=== PATIENT | female | born 1995 | race Caucasian/White ===

== ENCOUNTER 2024-06-21 11:01 | Outpatient (OUT) | payer OTHER, SELFPAY ==
--- NOTE | 2024-06-21 11:29 | ECG_ITS ---
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
--- NOTE | 2024-06-21 11:46 | XR_ITS ---
[address] [address] Patient Name: MARGARET ORTIZ MRN: [id number] date: 1995 Sex: F Assigned Patient Location: [facility] Current Patient Location: Accession/Order Number: [id number] Exam Date: 06/21/2024 11:40 Report Date: 06/23/2024 08:47 At the request of: BETY THAKKAR Procedure: XR chest 2V EXAMINATION: XR chest 2V HISTORY: Preop exam COMPARISON: No relevant comparison available. TECHNIQUE: PA and lateral FINDINGS: LUNGS: No significant pulmonary parenchymal abnormalities. VASCULATURE: No increased pulmonary vasculature. PLEURA: No pneumothorax, effusion, or pleural thickening. CARDIAC: No cardiomegaly or cardiac silhouette abnormality. MEDIASTINUM: No visible mass or adenopathy. BONES: No fracture or visible bone lesion. OTHER: Negative. XR/XR chest 2V IMPRESSION: No acute cardiopulmonary process Electronically authenticated by: GERARDO HIDALGO Date: 06/23/2024 08:47
== END 2024-06-21 11:02 | disposition home or self-care (01) ==
PROVIDERS: Visit Provider Obstetrics & Gynecology
DX: Z01.810 Encounter for preprocedural cardiovascular examination (principal); E28.2 Polycystic ovarian syndrome; N94.10 Unspecified dyspareunia; N93.9 Abnormal uterine and vaginal bleeding, unspecified; R10.2 Pelvic and perineal pain; E34.9 Endocrine disorder, unspecified
CPT/HCPCS: 71046; 93005

== ENCOUNTER 2024-06-22 07:17 | Outpatient (RCR) | payer OTHER, SELFPAY ==
--- OUTSIDE RECORDS SUMMARY | 2024-06-22 07:21 | XMS_ITS | CCD ---
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 Name Role Phone Andrea Luciano Primary Care Provi zoltan ANDREA LUCIANO Attending Un available ANDREA LUCIANO Primary Care Un available Joi Lewis Primary Care Provider UnavailANDREA Li Primary Care Un available VERONICA STEPHEN Attending Unavailable ANDREA LUCIANO Primary Care Un available SU WILLIAMSON Attending Unavailable ANDREA LUCIANO Primary Care Un available ARIELLE GUERRERO Attending Unavailable Joi Lewis Primary Care Provider JOI LEWIS Primary Care Unavailable JOI LEWIS Primary Care Unavailable PARUL GRAVES Referring Unavailable JOI LEWIS Primary Care Unavailable PARUL GRAVES Referring Unavailable Joi Lewis MD Primary Care Provider JUNG SERRATO Attending Unavailable JUNG SERRATO Attending Unavailable JOI LEWIS Primary Care Unavailable ALEXYS FAROOQ Referring Unavailable JOI LEWIS Primary Care Unavailable JUNG SERRATO Referring Unavailable JOI LEWIS Primary Care Unavailable PARUL GRAVES Referring Unavailable JOI LEWIS Primary Care Unavailable JUNG SERRATO Referring Unavailable JOI LEWIS Primary Care Unavailable JUNG SERRATO Referring Unavailable JOI LEWIS Primary Care Unavailable JOI LEWIS Primary Care Unavailable LILLIAN LEIJA Attending Unavailable Allergies Allergy Classification Reported Allergen(s) Allergy Type Date of Onset Reaction(s) Facility NSAIDs (2 sources) Ibuprofen; Translations: [IBUPROFEN] Drug Allergy 09-16-2015 [facility] (14 sources) Ibuprofen Drug Allergy 09-16-2015 [facility] Medications Current Medications Medication Drug Class(es) Dates Sig (Normalized) Sig (Original) acetaminophen 500 mg oral tablet (8 sources) take 1 tablet by mouth every six hours as needed acetaminophen (TYLENOL) 500 MG tablet Take 500 mg by mouth every 6 (six) hours as needed for pain . 0 Active 200 actuat albuterol 0.09 mg/actuat metered dose inhaler (2 sources) beta2-Adrenergic Agonist Start: 07-06-2019 End: 07-05-2020 take 2 puff(s) by inhalation every six hours as needed for wheezing albuterol 90 mcg/actuation inhaler Indications: Bronchitis Inhale 2 (two) puffs every 6 (six) hours as needed for wheezing . 1 Inhaler 0 07/06/2019 07/05/2020 Active benzonatate 200 mg oral capsule (1 source) Non-narcotic Antitussive Start: 07-06-2019 End: 07-13-2019 take 1 capsule by mouth three times daily as needed for cough benzonatate (TESSALON) 200 MG capsule Indications: Bronchitis Take 1 (one) capsule (200 mg total) by mouth 3 (three) times a day as needed for cough . 20 capsule 0 07/06/2019 07/13/2019 Active cetirizine hydrochloride 10 mg oral tablet (3 sources) Histamine-1 Receptor Antagonist Start: 03-23-2020 End: 04-22-2020 take 1 tablet by mouth once daily cetirizine (ZYRTEC) 10 MG tablet Indications: Post-nasal drip Take 1 (one) tablet (10 mg total) by mouth daily . 30 tablet 0 03/23/2020 Active diphenhydrAMINE hydrochloride 50 mg oral capsule (8 sources) Histamine-1 Receptor Antagonist take 1 capsule by mouth every six hours as needed diphenhydrAMINE (BENADRYL) 50 MG capsule Take 50 mg by mouth every 6 (six) hours as needed for itching . 0 Active DM/PE/acetaminophen/ doxylamine (VICKS DAYQUIL-NYQUIL ORAL) (8 sources) DM/PE/acetaminop hen/ doxylamine (VICKS DAYQUIL-NYQUIL ORAL) Take by mouth . 0 Active doxycycline hyclate 100 mg oral capsule (2 sources) Tetracycline-class Drug Start: 12-01-2019 End: 12-11-2019 take 1 capsule by mouth twice daily doxycycline hyclate (VIBRAMYCIN) 100 MG capsule Take 1 (one) capsule (100 mg total) by mouth 2 (two) times a day for 10 days . 20 capsule 0 12/01/2019 12/11/2019 Active levonorgestrel 0.577397 mg/hr intrauterine system (9 sources) Progestin, Progestin-containi ng Intrauterine Device levonorgestrel (MIRENA) 20 mcg/24 hr (5 years) IUD Indications: placed 2017 1 each by Intrauterine route . 0 Active mupirocin 20 mg/ml topical cream (8 sources) RNA Synthetase Inhibitor Antibacterial Start: 09-30-2020 End: 10-05-2020 take 30 g by mouth three times daily mupirocin (BACTROBAN) 2 % cream Apply topically 3 (three) times a day Apply to corner of mouth for 5 days . 30 g 0 09/30/2020 10/05/2020 Active Start: 07-06-2019 End: 09-30-2020 mupirocin (BACTROBAN) 2 % oi ntment Indications: Dermatitis Apply topically 3 (three) times a day . 22 g 0 07/06/2019 09/30/2020 Discontinued ondansetron 4 mg disintegrating oral tablet (2 sources) Serotonin-3 Receptor Antagonist ondansetron (ZOFRAN-ODT) 4 MG disintegrating tablet Active oseltamivir 75 mg oral capsule (1 source) Neuraminidase Inhibitor Start: End: take 1 capsule by mouth twice daily oseltamivir (Tamiflu) 75 MG capsule Indications: Influenza B Take 1 (one) capsule (75 mg total) by mouth 2 (two) times a day for 5 days . 10 capsule 0 10/18/2019 10/23/2019 Active oxymetazoline hydrochloride 0.5 mg/ml nasal spray (4 sources) Start: oxymetazoline (12 HOUR NASAL SPRAY) 0.05 % nasal spray Use daily as directed for 3 days 1 Bottle 08/11/2020 Active silver sulfADIAZINE 10 mg/ml topical cream (7 sources) Sulfonamide Antibacterial Start: End: 020 silver sulfADIAZINE (SILVADENE) 1 % cream Indications: Sunburn Apply thin film to left posterior shoulder region and L side of neck daily x 7 days . 50 g 1 06/21/2019 06/20/2020 Active Completed/Discontinued Medications Medication Drug Class(es) Dates Sig (Normalized) Sig (Original) albuterol 90 mcg/actuation inhaler (6 sources) Start: 12-01-2019 End: 09-30-2020 take 2 puff(s) by inhalation four times daily as needed for cough albuterol 90 mcg/actuation inhaler 2 puffs qid prn cough/wheeze . 1 Inhaler 0 12/01/2019 09/30/2020 Discontinued Start: 12-01-2019 take 2 puff(s) by in halation four times daily as needed for cough albuterol 90 mcg/actuation inhaler 2 puffs qid prn cough/wheeze . 1 Inhaler 0 12/01/2019 Active Start: 07-06-2019 End: 12-01-2019 take 2 puff(s) by inhalation every six hours as needed for wheezing albuterol 90 mcg/actuation inhaler Indications: Bronchitis Inhale 2 (two) puffs every 6 (six) hours as needed for wheezing . 1 Inhaler 0 07/06/2019 12/01/2019 Discontinued dextromethorphan hydrobromide 1.5 mg/ml / pyrilamine maleate 1.5 mg/ml oral solution (6 sources) Uncompetitive X-dabica-Z-aspartate Receptor Antagonist, Sigma-1 Agonist Start: 10-18-2019 End: 09-30-2020 take 10 mL by mouth four times daily as needed for cough pyrilamine-dextromethorphan ([place] DM) 7.5-7.5 mg/5 mL Liqd Indications: Influenza B Take 10 mL by mouth 4 (four) times a day as needed (cough) . 200 mL 0 10/18/2019 09/30/2020 Discontinued fluconazole 100 mg oral tablet (2 sources) Azole Antifungal Start: 01-19-2023 End: 01-19-2023 fluconazole (DIFLUCAN) tablet 200 mg Start: 01-19-2023 End: 01-22-2023 take 1 tablet by mouth once daily fluconazole (DIFLUCAN) 150 MG tablet Take 1 tablet by mouth daily for 3 days 3 tablet 0 01/19/2023 01/22/2023 Active ipratropium bromide 0.021 mg/actuat metered dose nasal spray (6 sources) Anticholinergic Start: 10-18-2019 End: 10-17-2020 ipratropium (ATROVENT) 0.03 % nasal spray Indications: Influenza B Instill 2 (two) sprays into each nostril every 12 (twelve) hours . 30 mL 0 10/18/2019 09/30/2020 Discontinued methylPREDNISolone (9 sources) Corticosteroid Start: 03-23-2020 End: 09-30-2020 methylPREDNISolone (MEDROL DOSEPACK) 4 mg tablet Indications: Post-nasal drip Take as directed. . 21 tablet 0 03/23/2020 09/30/2020 Discontinued Start: 03-23-2020 methylPREDNISo lone (MEDROL DOSEPACK) 4 mg tablet Indications: Post-nasal drip Take as directed. . 21 tablet 0 03/23/2020 Active Start: 06-21-2019 End: 03-23-2020 methylPREDNISolone (MEDROL D OSEPACK) 4 mg tablet Indications: Sunburn follow package directions . 21 tablet 0 06/21/2019 03/23/2020 Discontinued Start: 06-21-2019 methylPREDNISo lone (MEDROL DOSEPACK) 4 mg tablet Indications: Sunburn follow package directions . 21 tablet 0 06/21/2019 Active metroNIDAZOLE 250 mg oral tablet (2 sources) Nitroimidazole Antimicrobial Start: 01-19-2023 End: 01-19-2023 metroNIDAZOLE (FLAGYL) tablet 500 mg Start: 01-19-2023 End: 01-29-2023 take 1 tablet by mouth three times daily metroNIDAZOLE (FLAGYL) 500 MG tablet Take 1 tablet by mouth 3 times daily for 10 days 30 tablet 0 01/19/2023 01/29/2023 Active topiramate 25 mg oral tablet (7 sources) Start: 10-02-2018 End: 09-30-2020 take 1 tablet by mouth once daily topiramate (TOPAMAX) 25 MG tablet Indications: Migraine with aura and without status migrainosus, not intractable Take 1 (one) tablet (25 mg total) by mouth nightly . 30 tablet 0 10/02/2018 09/30/2020 Discontinued Problems Active Problems Problem Classification Problem Date Documented Date Episodic/Chronic Cardiac and circulatory congenital anomalies (14 sources) Bicuspid aortic valve; Translations: [Congenital insufficiency of aortic valve] Onset: 07-08-2012 10-02-2018 Chronic Chronic obstructive pulmonary disease and bronchiectasis (2 sources) Bronchitis; Translations: [Bronchitis] Episodic Coagulation and hemorrhagic disorders (14 sources) von Willebrand disorder; Translations: [Von Willebrand disease] Onset: 10-02-2018 10-02-2018 Chronic Essential hypertension (5 sources) Hypertensive disorder; Translations: [Essential (primary) hypertension] Onset: 05-26-2013 05-26-2013 Chronic Headache; including migraine (9 sources) Migraine; Translations: [Migraine] Onset: 10-02-2018 10-26-2018 Chronic Heart valve disorders (10 sources) Aortic valve stenosis; Translations: [Aortic valve regurgitation] Onset: 07-08-2012 07-08-2012 Chronic Influenza (1 source) Influenza due to Influenza virus, type B; Translations: [Influenza B] Episodic Menstrual disorders (5 sources) Menorrhagia; Translations: [Excessive and frequent menstruation with regular cycle] 07-06-2012 Chronic Other endocrine disorders (2 sources) Polycystic ovarian syndrome; Translations: [Polycystic ovarian syndrome] Onset: 05-27-2024 Chronic Other endocrine disorders (2 sources) Endocrine disorder, unspecified; Translations: [Endocrine disorder, unspecified] Onset: 05-27-2024 Episodic Other female genital disorders (1 source) Pain in female genitalia on intercourse; Translations: [Unspecified dyspareunia] 05-28-2024 Chronic Other female genital disorders (1 source) Abnormal uterine bleeding; Translations: [Abnormal uterine and vaginal bleeding, unspecified] 05-28-2024 Chronic Other female genital disorders (1 source) Unspecified dyspareunia; Translations: [Unspecified dyspareunia] Onset: 05-28-2024 Chronic Other female genital disorders (3 sources) Abnormal uterine and vaginal bleeding, unspecified; Translations: [Abnormal uterine and vaginal bleeding, unspecified] Onset: 05-27-2024 Chronic Other female genital disorders (1 source) Pruritus of vagina; Translations: [Other specified noninflammatory disorders of vagina] Episodic Other inflammatory condition of skin (1 source) Solar erythema; Translations: [Sunburn] Episodic Other lower respiratory disease (1 source) Lower respiratory tract infection; Translations: [Lower respiratory tract infection] Episodic Other lower respiratory disease (1 source) Cough; Translations: [Cough] Episodic Other nutritional; endocrine; and metabolic disorders (9 sources) Obesity; Translations: [Obesity] Onset: 10-02-2018 10-02-2018 Chronic Other screening for suspected conditions (not mental disorders or infectious disease) (3 sources) Other specified abnormal findings of blood chemistry; Translations: [Other specified abnormal findings of blood chemistry] Onset: 06-09-2024 Episodic Other skin disorders (1 source) Inflammatory dermatosis; Translations: [Dermatitis] Episodic Other upper respiratory disease (1 source) Rhinitis; Translations: [Acute rhinitis] Chronic Other upper respiratory infections (1 source) Posterior rhinorrhea; Translations: [Post-nasal drip] Episodic Unclassified (2 sources) Test; Translations: [ Test] Onset: 02-15-2024 Past or Other Problems Problem Classification Problem Date Documented Date Episodic/Chronic Abdominal pain (1 source) Pelvic and perineal pain; Translations: [Pelvic and perineal pain] Onset: 08-18-2023 Episodic Immunizations and screening for infectious disease (1 source) Encounter for screening for infections with a predominantly sexual mode of transmission; Translations: [Encounter for screening for infections with a predominantly sexual mode of transmission] Onset: 2023 Episodic Ovarian cyst (3 sources) Other ovarian cyst, right side; Translations: [Unspecified ovarian cyst, left side] Onset: 2023 Episodic Skin and subcutaneous tissue infections (1 source) Impetigo; Translations: [Impetigo] Episodic Syncope (1 source) Syncope and collapse; Translations: [Syncope and collapse] Onset: 06-23-2023 Episodic Results Test Name Value Interpretation Reference Range Facility MRI BRAIN W WO CONTRASTon MRI BRAIN W WO CONTRAST EXAMINATION: MRI OF THE BRAIN WITHOUT AND WITH CONTRAST 06/09/2024 12:35 pm TECHNIQUE: Multiplanar multisequence MRI of the head/brain was performed without and with the administration of intravenous contrast. COMPARISON: None. HISTORY: ORDERING SYSTEM PROVIDED HISTORY: Other specified abnormal findings of blood manager chemistry PROVIDED HISTORY: STAT Creatinine as needed:->No FINDINGS: INTRACRANIAL STRUCTURES/VENTRICLES: There is no acute infarct. No mass effect or midline shift. No evidence of an acute intracranial hemorrhage. The ventricles and sulci are normal in size and configuration. The sellar/suprasellar regions appear unremarkable. Pituitary gland measures 1.4 x 0.5 x 0.5 cm. No focal lesions are seen. Pituitary stalk is normal in thickness. The normal signal voids within the major intracranial vessels appear maintained. No abnormal focus of enhancement is seen within the brain. ORBITS: The visualized portion of the orbits demonstrate no acute abnormality. SINUSES: The visualized paranasal sinuses and mastoid air cells demonstrate no acute abnormality. BONES/SOFT TISSUES: The bone marrow signal intensity appears normal. The soft tissues demonstrate no acute abnormality. IMPRESSION: 1. No acute intracranial abnormality. 2. Normal pituitary gland. Interpreted by: Tristen Valdes MD Signed by: Tristen Valdes MD 06/10/24 Final result Normal [facility] DHEAon 06-01-2024 DHEA 8.631 ng/mL High 1.330-7.780 [facility] Comment on above: Result Comment: (NOT E) INTERPRETIVE INFORMATION: Dehydroepiandrosterone, Females 18 years and older: Postmenopausal: 0.60-5.73 ng/mL REFERENCE INTERVAL: Dehydroepiandrosterone by TMS Access complete set of age- and/or gender-specific reference intervals for this test in the [facility] Test Directory ([employer]). This test was developed and its performance characteristics determined by [facility]. It has not been cleared or approved by the [place] Food and Drug Administration. This test was performed in a CLIA certified laboratory and is intended for clinical purposes. Performed By: [facility] [address] [place] [address] Drivers License Examiner: John Maradiaga MD, PhD CLIA Number: [id number] Performed By: #### F SH, DHES, FT4, LH, GLYHGB, PROL ####[id number] [place] [address] Lab Director: Eliecer Barreto MD#### CDP, BHCG, TSH ####[facility] [place] [address] Lab Director: Patricio Kelley MD#### ADHEA ####[facility] [place] [id number] Lab Director: Aguilar Ballard MD US PELVIS COMPLETEon 024 US PELVIS COMPLETE EXAMINATION: PELVIC ULTRASOUND 05/28/2024 9:17 pm TECHNIQUE: Transabdominal pelvic ultrasound using B-mode/conner scaled imaging and color flow Doppler was obtained. COMPARISON: None HISTORY: ORDERING SYSTEM PROVIDED HISTORY: Dyspareunia, female FINDINGS: Uterus: 7.9 cm x 4.3 cm x 3.1 cm Endometrial stripe: 0.7 cm Right ovary: 2.6 cm x 2.2 cm x 1.8 cm Left ovary: 2.2 cm x 2.4 cm x 3.0 cm UTERUS: Anteverted with appropriate size. Heterogeneous myometrium with indistinct junctional margins and possible patchy fan-shaped posterior acoustic shadowing. No discrete myometrial lesion. Closed cervix. ENDOMETRIAL STRIPE: Normal size and appearance. RIGHT OVARY: Normal size. Normal degree of vascularity. LEFT OVARY: Normal size. Normal degree of vascularity. FREE FLUID: None visualized. IMPRESSION: 1. Myometrial heterogeneity that could be seen with adenomyosis, incompletely evaluated due to lack of transvaginal imaging. 2. Normal transabdominal sonographic appearance of the ovaries. Interpreted by: Adonay Frank MD Signed by: Adonay Frank MD 05/29/24 Final result Normal [facility] US Pelvison 05-29-2024 1. Myometrial heterogeneity that could be seen with adenomyosis, incompletely evaluated due to lack of transvaginal imaging. 2. Normal transabdominal sonographic appearance of the ovaries. [facility] RIS CONSOLIDATED EXAMINATION: PELVIC ULTRASOUND 05/28/2024 9:17 pm TECHNIQUE: Transabdominal pelvic ultrasound using B-mode/conner scaled imaging and color flow Doppler was obtained. COMPARISON: None HISTORY: ORDERING SYSTEM PROVIDED HISTORY: Dyspareunia, female FINDINGS: Uterus: 7.9 cm x 4.3 cm x 3.1 cm Endometrial stripe: 0.7 cm Right ovary: 2.6 cm x 2.2 cm x 1.8 cm Left ovary: 2.2 cm x 2.4 cm x 3.0 cm UTERUS: Anteverted with appropriate size. Heterogeneous myometrium with indistinct junctional margins and possible patchy fan-shaped posterior acoustic shadowing. No discrete myometrial lesion. Closed cervix. ENDOMETRIAL STRIPE: Normal size and appearance. RIGHT OVARY: Normal size. Normal degree of vascularity. LEFT OVARY: Normal size. Normal degree of vascularity. FREE FLUID: None visualized. [facility] Adonay Carreno MD - 05/29/2024 EXAMINATION: PELVIC ULTRASOUND 05/28/2024 9:17 pm TECHNIQUE: Transabdominal pelvic ultrasound using B-mode/conner scaled imaging and color flow Doppler was obtained. COMPARISON: None HISTORY: ORDERING SYSTEM PROVIDED HISTORY: Dyspareunia, female FINDINGS: Uterus: 7.9 cm x 4.3 cm x 3.1 cm Endometrial stripe: 0.7 cm Right ovary: 2.6 cm x 2.2 cm x 1.8 cm Left ovary: 2.2 cm x 2.4 cm x 3.0 cm UTERUS: Anteverted with appropriate size. Heterogeneous myometrium with indistinct junctional margins and possible patchy fan-shaped posterior acoustic shadowing. No discrete myometrial lesion. Closed cervix. ENDOMETRIAL STRIPE: Normal size and appearance. RIGHT OVARY: Normal size. Normal degree of vascularity. LEFT OVARY: Normal size. Normal degree of vascularity. FREE FLUID: None visualized. IMPRESSION: 1. Myometrial heterogeneity that could be seen with adenomyosis, incompletely evaluated due to lack of transvaginal imaging. 2. Normal transabdominal sonographic appearance of the ovaries. [facility] US PelvisOrdered By: Adonay Frank on 05-29-2024 [facility] Work Phone: US Pelvison 05-28-2024 Radiology Study observation (narrative) [facility] CBC with Auto Differentialon 05-27-2024 Basophils (Bld) [#/Vol] 0.04 10*3/uL [facility] Basophils/100 WBC (Bld) 0 % 0 - 2 % [facility] Eosinophils (Bld) [#/Vol] 0.30 10*3/uL [facility] Eosinophils/100 WBC (Bld) 3 % 1 - 4 % [facility] Erythrocyte distribution width (RBC) [Ratio] 12.7 % 11.8 - 14.4 % [facility] Hematocrit (Bld) [Volume fraction] 42.2 % 36.3 - 47.1 % [facility] Hemoglobin (Bld) [Mass/Vol] 14.5 g/dL 11.9 - 15.1 g/dL [facility] Immature granulocytes (Bld) [#/Vol] 0.04 10*3/uL [facility] Immature granulocytes/100 WBC (Bld) 0 % 0 [facility] Interpretation and review of laboratory results Abnormal [facility] Lymphocytes/100 WBC (Bld) 23 % Low 24 - 43 % [facility] Lymphocytes/100 WBC (Bld) 2.20 % [facility] MCH (RBC) [Entitic mass] 27.6 pg 25.2 - 33.5 pg [facility] MCHC (RBC) [Mass/Vol] 34.4 g/dL 28.4 - 34.8 g/dL [facility] MCV (RBC) [Entitic vol] 80.4 fL Low 82.6 - 102.9 fL [facility] Monocytes/100 WBC (Bld) 6 % 3 - 12 % [facility] Monocytes/100 WBC (Bld) 0.54 % [facility] Neutrophils/100 WBC (Bld) 68 % High 36 - 65 % [facility] Nucleated RBC/100 WBC (Bld) [Ratio] 0.0 % 0.0 per 100 WBC [facility] Platelet mean volume (Bld) [Entitic vol] 11.5 fL 8.1 - 13.5 fL [facility] Platelets (Bld) [#/Vol] 246 10*3/uL [facility] RBC (Bld) [#/Vol] 5.25 10*6/uL High 3.95 - 5.1 1 m/uL [facility] Segmented neutrophils/100 WBC (Bld) 6.39 % [facility] WBC other (Bld) [#/Vol] 9.5 [facility] CBC with Diffon 05-27-2024 Abs. Basophil 0.04 k/uL Normal 0.00-0.20 [facility] Comment on above: Performed By: #### S WC #### [facility] [employer] [address] [place] [id number] Manager Diversity: Eliecer Barreto MD Abs.Imm.Granulocyt e 0.04 k/uL Normal 0.00-0.30 [facility] Comment on above: Performed By: #### S WCGP #### [address] [address] Manager Diversity: Eliecer Barreto MD Abs.Neutrophil (Seg) 6.39 k/uL Normal 1.50-8.10 [facility] Comment on above: Performed By: #### S WCGP #### [address] [address] Manager Diversity: Eliecer Barreto MD Basophils/100 WBC (Bld) 0 % Normal 0-2 [facility] Comment on above: Performed By: #### S WCGP #### [place] [address] Manager Diversity: Eliecer Barreto MD Eosinophils (Bld) [#/Vol] 0.30 10*3/uL Normal 0.00-0.44 [facility] Comment on above: Performed By: #### S WCGP #### [address] [address] Manager Diversity: Eliecer Barreto MD Eosinophils/100 WBC (Bld) 3 % Normal 1-4 [facility] Comment on above: Performed By: #### S WCGP #### [address] [address] Manager Diversity: Eliecer Barreto MD Erythrocyte distribution width (RBC) [Ratio] 12.7 % Normal 11.8-14.4 [facility] Comment on above: Performed By: #### S WCGP #### [place] [address] Manager Diversity: Eliecer Barreto MD Hematocrit (Bld) [Volume fraction] 42.2 % Normal 36.3-47.1 [facility] Comment on above: Performed By: #### S WCGP #### [address] [address] Manager Diversity: Eliecer Barreto MD Hemoglobin (Bld) [Mass/Vol] 14.5 g/dL Normal 11.9-15.1 [facility] Comment on above: Performed By: #### S WCGP #### [address] [address] Manager Diversity: Eliecer Barreto MD Immature granulocytes/100 WBC (Bld) 0 % Normal 0 [facility] Comment on above: Performed By: #### S WCGP #### [address] [address] Manager Diversity: Eliecer Barreto MD Lymphocytes (Bld) [#/Vol] 2.20 10*3/uL Normal 1.10-3.70 [facility] Comment on above: Performed By: #### S WCGP #### [address] [address] Manager Diversity: Eliecer Barreto MD Lymphocytes/100 WBC (Bld) 23 % Low 24-43 [facility] Comment on above: Performed By: #### S WCGP #### [address] [address] Manager Diversity: Eliecer Barreto MD MCH (RBC) [Entitic mass] 27.6 pg Normal 25.2-33.5 [facility] Comment on above: Performed By: #### S WCGP #### [address] [address] Manager Diversity: Eliecer Barreto MD MCHC (RBC) [Mass/Vol] 34.4 g/dL Normal 28.4-34.8 [facility] Comment on above: Performed By: #### S WCGP #### [address] [address] Manager Diversity: Eliecer Barreto MD MCV (RBC) [Entitic vol] 80.4 fL Low 82.6-102.9 [facility] Comment on above: Performed By: #### S WCGP #### [address] [address] Manager Diversity: Eliecer Barreto MD Monocytes (Bld) [#/Vol] 0.54 10*3/uL Normal 0.10-1.20 [facility] Comment on above: Performed By: #### S WCGP #### [address] [address] Manager Diversity: Eliecer Barreto MD Monocytes/100 WBC (Bld) 6 % Normal 3-12 [facility] Comment on above: Performed By: #### S WCGP #### [address] [address] Manager Diversity: Eliecer Barreto MD Neutrophil (Seg) 68 % High 36-65 [facility] Comment on above: Performed By: #### S WCGP #### [address] [address] Manager Diversity: Eliecer Barreto MD NRBC Automated 0.0 per 100 WBC Normal 0.0 [facility] Comment on above: Performed By: #### S WCGP #### [address] [address] Manager Diversity: Eliecer Barreto MD Platelet mean volume (Bld) [Entitic vol] 11.5 fL Normal 8.1-13.5 [facility] Comment on above: Performed By: #### S WCGP #### [address] [address] Manager Diversity: Eliecer Barreto MD Platelets (Bld) [#/Vol] 246 10*3/uL Normal 138-453 [facility] Comment on above: Performed By: #### S WCGP #### [address] [address] Manager Diversity: Eliecer Barreto MD RBC (Bld) [#/Vol] 5.25 10*6/uL High 3.95-5.11 [facility] Comment on above: Performed By: #### S WCGP #### [facility] [address] [place] [address] Manager Diversity: Eliecer Barreto MD WBC (Bld) [#/Vol] 9.5 10*3/uL Normal 3.5-11.3 [facility] Comment on above: Performed By: #### S WCGP #### [facility] [address] [place] [address] Manager Diversity: Eliecer Barreto MD DHEA Sulfateon 05-27-2024 DHEA Sulfate 417.0 ug/dL High 98.8-340 [facility] Comment on above: Performed By: #### F SH, DHES, FT4, LH, GLYHGB, PROL ####[facility] [id number] [place] [address] Lab Director: Eliecer Barreto MD#### CDP, BHCG, TSH ####[facility] [place] [address] Lab Director: Patricio Kelley MD#### ADHEA ####[facility] [address] [place] [address] [id number] Lab Director: Aguilar Ballard MD DHEA-Sulfateon 05-27-2024 DHEA-S [Mass/Vol] 417.0 ug/dL High 98.8 - 340 ug/dL [facility] Interpretation and review of laboratory results Abnormal [facility] Follicle Stim. Hormon 2023 Follicle Stim. Horm 3.2 mIU/mL Normal [facility] Comment on above: Result Comment: Refe rence Range: Male: 1.5-12.4 Ovulating Female: Follicular Phase 3.5-12.5 Ovulation Phase 4.7-21.5 Luteal Phase 1.7-7.7 Postmenopausal Female: 25.8-134.8 Performed By: #### S WCGP #### [facility] [place] [address] Manager Diversity: Eliecer Barreto MD Follicle Stimulating Hormone on 05-27-2024 Follitropin Qn 3.2 m[IU]/mL mIU/mL [facility] [address] Comment on above: Reference Range: Male: 1.5-12.4 Ovulating Female: Follicular Phase 3.5-12.5 Ovulation Phase 4.7-21.5 Luteal Phase 1.7-7.7 Postmenopausal Female: 25.8-134.8 HCG, Quanton 05-27-2024 HCG, Quant <1.0 Normal <5 [facility] Comment on above: Result Comment: Non-preg premeno <=5 Postmeno <=8 Male <=3 If HCG results do not concur with clinical observations, additional testing to confirm results is recommended. Performed By: #### S WCGP #### [employer] [address] [place] [address] [id number] Manager Diversity: Eliecer Barreto MD HCG, Quantitative, on 05-27-2024 HCG.beta subunit Qn [facility] [employer] [address] Comment on above: Non-preg premeno <=5 Postmeno <=8 Male <=3 If HCG results do not concur with clinical observations, additional testing to confirm results is recommended. Hemoglobin A1Con 05-27-2024 Average glucose Estimated from glycated hemoglobin (Bld) [Mass/Vol] 97 mg/dL [facility] [employer] Comment on above: The ADA and AACC rec ommend providing the estimated average glucose result to permit better patient understanding of their HBA1c result. HbA1c (Bld) [Mass fraction] 5.0 % 4.0 - 6.0 % [facility] Glucose [Mass/Vol] 97 mg/dL Normal [facility] Comment on above: Result Comment: The ADA and AACC recommend providing the estimated average glucose result to permit better patient understanding of their HBA1c result. Performed By: #### S WCGP #### [facility] [place], [place] [id number] Manager Diversity: Eliecer Barreto MD HbA1c (Bld) [Mass fraction] 5.0 % Normal 4.0-6.0 [facility] Comment on above: Performed By: #### S WCGP #### [facility] [address] [place], [place] [id number] Manager Diversity: Eliecer Barreto MD Luteinizing Hormoneon 2023 Interpretation and review of laboratory results Abnormal [facility] Lutropin Qn 11.0 m[IU]/mL High [facility] Comment on above: Reference Range: Male: 1.7-8.6 Ovulating Female: Follicular Phase 2.4-12.6 Ovulation Phase 14.0-95.6 Luteal Phase 1.0-11.4 Postmenopausal Female: 7.7-58.5 Luteinizing Hormone 11.0 mIU/mL High 1.7-8.6 [facility] Comment on above: Result Comment: Refe rence Range: Male: 1.7-8.6 Ovulating Female: Follicular Phase 2.4-12.6 Ovulation Phase 14.0-95.6 Luteal Phase 1.0-11.4 Postmenopausal Female: 7.7-58.5 Performed By: #### F SH, DHES, FT4, LH, GLYHGB, PROL ####[facility] [address] [place], [place] [id number] Lab Director: Eliecer Barreto MD#### CDP, BHCG, TSH ####[facility] [place] [address] Lab Director: Patricio Kelley MD#### ADHEA ####[facility] [address] [place] [id number] Lab Director: Aguilar Ballard MD No Panel Informationon 05-27 [facility] Prolactinon 05-27-2024 Interpretation and review of laboratory results Abnormal [facility] Prolactin [Mass/Vol] 37.70 ng/mL High 4.79 - 23.3 ng/mL [facility] Comment on above: The presence of macr oprolactin may cause interference in female patients with various endocrinological diseases or during . [facility] Prolactin 37.70 ng/mL High 4.79-23.3 [facility] Comment on above: Result Comment: The presence of macroprolactin may cause interference in female patients with various endocrinological diseases or during . Performed By: #### S WCGP #### [facility] [address] [place] [address] Manager Diversity: Eliecer Barreto MD T4, Freeon 05-27-2024 Free T4 [Mass/Vol] 1.5 ng/dL 0.92 - 1. 68 ng/dL [facility] TSHon 05-27-2024 TSH Qn 1.42 m[IU]/L [facility] Thyroid Stim. Horm.on 2023 Thyroid Stim. Horm. 1.42 uIU/mL Normal 0.30-5.00 [facility] Comment on above: Performed By: #### S WCGP #### [facility] [address] [place] [address] Manager Diversity: Eliecer Barreto MD Thyroxine, Freeon 05-27-2024 Thyroxine, Free 1.5 ng/dL Normal 0.92-1.68 [facility] Comment on above: Performed By: #### F SH, DHES, FT4, LH, GLYHGB, PROL ####[facility] [place] [address] Lab Director: Eliecer Barreto MD#### CDP, BHCG, TSH ####[facility] [place] [address] Lab Director: Patricio Kelley MD#### ADHEA ####[facility] [address] [place] [id number] Lab Director: Aguilar Ballard MD NON OB TRANSVAGINALon NON OB TRANSVAGINAL Table formatting from the original result was not included. Misha Metz on 02/09/2024 11:23 AM EDT UTERUS:anteverted, homogeneous echo pattern ENDO:7mm in thickness RT. OVARY:seen, multiple follicles visualized LT. OVARY:seen, complex finding (probable resolving cyst) noah- 1.9cm x 1.6cm x 1.4cm Interpreted by: Nickolas Swenson MD Signed by: Nickolas Swenson MD 02/09/24 Final result Normal [facility] Chlamydia/GC,DNA Ampon 11-11 Chlamydia Probe Negative Normal NEG [facility] Comment on above: Result Comment: CHLA MYDIA TRACHOMATIS DNA not detected by nucleic acid amplification. This test is intended for medical purposes only and is not valid for the evaluation of suspected sexual abuse or for other forensic purposes. In certain contexts, culture may be required to meet applicable laws and regulations for diagnosis of C. trachomatis and N. gonorrhoeae infections. Per 2014 CDC recommendations, this test does not include confirmation of positive results by an alternative nucleic acid target. Performed By: #### S WCGP #### [facility] [employer] [address] [place] [address] [phone] Manager Diversity: Eliecer Barreto MD Gonorrhea Probe Negative Normal [facility] Comment on above: Result Comment: NEIS SERIA GONORRHOEAE DNA not detected by nucleic acid amplification. This test is intended for medical purposes only and is not valid for the evaluation of suspected sexual abuse or for other forensic purposes. In certain contexts, culture may be required to meet applicable laws and regulations for diagnosis of C. trachomatis and N. gonorrhoeae infections. Per 2014 CDC recommendations, this test does not include confirmation of positive results by an alternative nucleic acid target. Performed By: #### S WCGP #### [facility] [employer] [facility] [place], [place] [phone] Manager Diversity: Eliecer Barreto MD T.pallidum Ab Screenon 11-11 T.pallidum Ab Screen Non-Reactive Normal NR [facility] Comment on above: Result Comment: T. pallidum antibodies are not detected. There is no serological evidence of infection with T. pallidum (early primary syphilis cannot be excluded). Retest in 2-4 weeks if syphilis is clinically suspect. Performed By: #### C EA, TREP, HIVCMB, AHCV, CA125 #### [employer] [address] [place] [address] Manager Diversity: Eliecer Barreto MD NON OB TRANSVAGINALon US NON OB TRANSVAGINAL Table formatting from the original result was not included. Rose Javier on 2023 3:19 PM EST UTERUS:anteverted, homogeneous echo pattern ENDO:6mm in thickness RT. OVARY:seen, complex cyst noah- 2.6cm x 2.0cm x 1.7cm LT. OVARY:seen, wnl - no cystic area seen in left adnexa on today's US Interpreted by: Nickolas Swenson MD Signed by: Nickolas Swenson MD 11/11/23 Final result Normal [facility] Vaginitis DNA Probeon 2023 Catarina Negative Normal NEG [facility] Comment on above: Result Comment: for Catarina sp. Method of testing is a DNA probe intended for detection and identification of Catarina species, Gardnerella vaginalis, and Trichomonas vaginalis nucleic acid in vaginal fluid specimens from patients with symptoms of vaginitis/vaginosis. Performed By: #### V AGP #### [facility] [address] [place] [address] Manager Diversity: Eliecer Barreto MD [facility] [address] [place] [address] [place] [address] Manager Diversity: Patricio Kelley MD Gardnerella Positive Abnormal NEG [facility] Comment on above: Result Comment: for Gardnerella vaginalis Performed By: #### V AGP #### [facility] [employer] [address] [place] [address] Manager Diversity: Eliecer Barreto MD [facility] [address] [place] [address] Manager Diversity: Patricio Kelley MD Trichomonas Negative Normal NEG [facility] Comment on above: Result Comment: for Trichomonas Vaginalis Performed By: #### V AGP #### [address] [place] [address] Manager Diversity: Eliecer Barreto MD [facility] [address] [place] [address] Manager Diversity: Patricio Kelley MD CA 125on 2023 CA 125 10 U/mL Normal <38 [facility] Comment on above: Result Comment: The Eleanor ECLIA assay is used. Results obtained with different assay methods cannot be used interchangeably. Performed By: #### C EA, TREP, HIVCMB, AHCV, CA125 #### [address] [address] Manager Diversity: Eliecer Barreto MD Carcinoembry. Antig.on 11-10 Carcinoembry. Antig. 2.5 ng/mL Normal <3.9 [facility] Comment on above: Result Comment: The Eleanor ECLIA assay is used. Results obtained with different assay methods cannot be used interchangeably. Performed By: #### C EA, TREP, HIVCMB, AHCV, CA125 #### [address] [address] Manager Diversity: Eliecer Barreto MD HIV Ag/Abon 2023 HIV Ag/Ab Non-Reactive Normal NR [facility] Comment on above: Result Comment: No l aboratory evidence of HIV infection. If acute HIV infection is suspected, consider testing for HIV-1 RNA. Performed By: #### C EA, TREP, HIVCMB, AHCV, CA125 #### [address] [place], [place] [id number] Manager Diversity: Eliecer Barreto MD Hep C Abon 2023 Hep C Ab Non-Reactive Normal [facility] Comment on above: Result Comment: The hepatitis C procedure used in our laboratory is a Chemiluminescent test specific for three recombinant HCV antigens. A negative anti-HCV result indicates that the antibodies to hepatitis C virus are not present at this time. Individuals with reactive anti-HCV should be considered infected and infectious until proven otherwise. Confirmation of all equivocal or reactive results is recommended by ordering HCV RNA by PCR. Performed By: #### C EA, TREP, HIVCMB, AHCV, CA125 #### [facility] [employer] [address] [place] [address] Manager Diversity: Eliecer Barreto MD Vaginitis DNA Probeon 2023 Source .VAGINAL SWAB Normal [facility] Comment on above: Performed By: #### V AGP #### [facility] [address] [place] [address] Manager Diversity: Eliecer Barreto MD [facility] [address] [place] [address] [place] [address] Manager Diversity: Patricio Kelley MD US NON OB TRANSVAGINALon US NON OB TRANSVAGINAL UTERUS: Homogenous appearing anteverted uterus, WNL ENDO: measures 5 mm RT. OVARY: WNL LT. OVARY: there is a hyperechoic area lateral AND superior to ovary, suggestive of edema, or collection of blood, no blood flow into area, minimal blood flow noted in ovary No free fluid Interpreted by: Gisela Machado DO Signed by: Gisela Machado DO 08/20/23 Final result Normal [facility] Basic Metabolic Profon 06-23 Anion gap [Moles/Vol] 9 mmol/L Normal - [facility] Comment on above: Performed By: #### S WCGP #### [facility] [address] [place] [address] Manager Diversity: Eliecer Barreto MD BUN/CRE Ratio 16 Normal - [facility] Comment on above: Performed By: #### S WCGP #### [facility] [employer] [address] [place] [address] Manager Diversity: Eliecer Barreto MD Calcium [Mass/Vol] 9.1 mg/dL Normal 8.6-10.4 [facility] Comment on above: Performed By: #### S WCGP #### [facility] [place] [address] Manager Diversity: Eliecer Barreto MD Chloride [Moles/Vol] 105 mmol/L Normal 98-107 [facility] Comment on above: Performed By: #### S WCGP #### [facility] [address] [place] [address] Manager Diversity: Eliecer Barreto MD CO2 [Moles/Vol] 25 mmol/L Normal 20-31 [facility] Comment on above: Performed By: #### S WCGP #### [address] [address] Manager Diversity: Eliecer Barreto MD Creatinine [Mass/Vol] 0.9 mg/dL Normal 0.5-0.9 [facility] Comment on above: Performed By: #### S WCGP #### [address] [address] Manager Diversity: Eliecer Barreto MD GFR/1.73 sq M.predicted among non-blacks MDRD (S/P/Bld) [Vol rate/Area] mL/min/{1.73_m2} Normal >60 [facility] Comment on above: Result Comment: These results are not intended for use in patients <18 years of age. eGFR results are calculated without a race factor using the 2020 CKD-EPI equation. Careful clinical correlation is recommended, particularly when comparing to results calculated using previous equations. The CKD-EPI equation is less accurate in patients with extremes of muscle mass, extra-renal metabolism of creatine, excessive creatine ingestion, or following therapy that affects renal tubular secretion. Performed By: #### S WCGP #### [facility] [employer] [address] [place] [address] Manager Diversity: Eliecer Barreto MD Glucose [Mass/Vol] 108 mg/dL High 70-99 [facility] Comment on above: Performed By: #### S WCGP #### [facility] [address] [place] [address] Manager Diversity: Eliecer Barreto MD Potassium [Moles/Vol] 3.8 mmol/L Normal 3.7-5.3 [facility] Comment on above: Performed By: #### S WCGP #### [address] [address] Manager Diversity: Eliecer Barreto MD Sodium [Moles/Vol] 139 mmol/L Normal 135-144 [facility] Comment on above: Performed By: #### S WCGP #### [address] [address] Manager Diversity: Eliecer Barreto MD Urea nitrogen [Mass/Vol] 14 mg/dL Normal 6-20 [facility] Comment on above: Performed By: #### S WCGP #### [address] [address] Manager Diversity: Eliecer Barreto MD CBC with Diffon 06-23-2023 Abs. Basophil 0.06 k/uL Normal 0.00-0.20 [facility] Comment on above: Performed By: #### S WCGP #### [address] [address] Manager Diversity: Eliecer Barreto MD Abs.Imm.Granulocyt e <0.03 Normal 0.00-0.30 [facility] Comment on above: Performed By: #### S WCGP #### [address] [address] Manager Diversity: Eliecer Barreto MD Abs.Neutrophil (Seg) 5.92 k/uL Normal 1.50-8.10 [facility] Comment on above: Performed By: #### S WCGP #### [address] [address] Manager Diversity: Eliecer Barreto MD Basophils/100 WBC (Bld) 1 % Normal 0-2 [facility] Comment on above: Performed By: #### S WCGP #### [address] [address] Manager Diversity: Eliecer Barreto MD Eosinophils (Bld) [#/Vol] 0.54 10*3/uL High 0.00-0.44 [facility] Comment on above: Performed By: #### S WCGP #### [address] [address] Manager Diversity: Eliecer Barreto MD Eosinophils/100 WBC (Bld) 5 % High 1-4 [facility] Comment on above: Performed By: #### S WCGP #### [address] [address] Manager Diversity: Eliecer Barreto MD Erythrocyte distribution width (RBC) [Ratio] 12.6 % Normal 11.8-14.4 [facility] Comment on above: Performed By: #### S WCGP #### [address] [address] Manager Diversity: Eliecer Barreto MD Hematocrit (Bld) [Volume fraction] 40.5 % Normal 36.3-47.1 [facility] Comment on above: Performed By: #### S WCGP #### [address] [address] Manager Diversity: Eliecer Barreto MD Hemoglobin (Bld) [Mass/Vol] 13.5 g/dL Normal 11.9-15.1 [facility] Comment on above: Performed By: #### S WCGP #### [address] [address] Manager Diversity: Eliecer Barreto MD Immature granulocytes/100 WBC (Bld) 0 % Normal 0 [facility] Comment on above: Performed By: #### S WCGP #### [address] [address] Manager Diversity: Eliecer Barreto MD Lymphocytes (Bld) [#/Vol] 3.44 10*3/uL Normal 1.10-3.70 [facility] Comment on above: Performed By: #### S WCGP #### [address] [address] Manager Diversity: Eliecer Barreto MD Lymphocytes/100 WBC (Bld) 33 % Normal 24-43 [facility] Comment on above: Performed By: #### S WCGP #### [address] [address] Manager Diversity: Eliecer Barreto MD MCH (RBC) [Entitic mass] 27.6 pg Normal 25.2-33.5 [facility] Comment on above: Performed By: #### S WCGP #### [place] [address] Manager Diversity: Eliecer Barreto MD MCHC (RBC) [Mass/Vol] 33.3 g/dL Normal 28.4-34.8 [facility] Comment on above: Performed By: #### S WCGP #### [address] [address] Manager Diversity: Eliecer Barreto MD MCV (RBC) [Entitic vol] 82.7 fL Normal 82.6-102.9 [facility] Comment on above: Performed By: #### S WCGP #### [address] [address] Manager Diversity: Eliecer Barreto MD Monocytes (Bld) [#/Vol] 0.57 10*3/uL Normal 0.10-1.20 [facility] Comment on above: Performed By: #### S WCGP #### [address] [address] Manager Diversity: Eliecer Barreot MD Monocytes/100 WBC (Bld) 5 % Normal 3-12 [facility] Comment on above: Performed By: #### S WCGP #### [place] [address] Manager Diversity: Eliecer Barreto MD Neutrophil (Seg) 56 % Normal 36-65 [facility] Comment on above: Performed By: #### S WCGP #### [address] [address] Manager Diversity: Eliecer Barreto MD NRBC Automated 0.0 per 100 WBC Normal 0.0 [facility] Comment on above: Performed By: #### S WCGP #### [address] [address] Manager Diversity: Eliecer Barreto MD Platelet mean volume (Bld) [Entitic vol] 11.5 fL Normal 8.1-13.5 [facility] Comment on above: Performed By: #### S WCGP #### [address] [address] Manager Diversity: Eliecer Barreto MD Platelets (Bld) [#/Vol] 248 10*3/uL Normal 138-453 [facility] Comment on above: Performed By: #### S WCGP #### [address] [address] Manager Diversity: Eliecer Barreto MD RBC (Bld) [#/Vol] 4.90 10*6/uL Normal 3.95-5.11 [facility] Comment on above: Performed By: #### S WCGP #### [address] [address] Manager Diversity: Eliecer Barreto MD WBC (Bld) [#/Vol] 10.6 10*3/uL Normal 3.5-11.3 [facility] Comment on above: Performed By: #### S WCGP #### [address] [address] Manager Diversity: Eliecer Barreto MD HCG Screen, Bloodon 06-23-20 23 HCG Screen, Blood Negative Normal NEG [facility] Comment on above: Result Comment: Spec imens with hCG levels near the threshold of the test (25 mIU/mL) may give a negative or indeterminate result. In such cases, another test should be performed with a new specimen in 48-72 hours. If early is suspected clinically in this setting, correlation with quantitative serum b-hCG level is suggested. [facility] has confirmed the use of plasma for this test. This has not been cleared or approved by the U.S. Food and Drug Administration. The FDA has determined that such clearance is not necessary. Performed By: #### S WCGP #### [facility] [address] [place], [place] [id number] Manager Diversity: Eliecer Barreto MD Magnesiumon 06-23-2023 Magnesium [Mass/Vol] 2.0 mg/dL Normal 1.6-2.6 [facility] Comment on above: Performed By: #### S WCGP #### [facility] [address] [place] [address] Manager Diversity: Eliecer Brareto MD Urinalysis w/ Microon 546 Bilirubin, SemiQt,Ur Negative Normal NEG [facility] Comment on above: Performed By: #### U AMIC #### [facility] [address] [place] [address] [place] [address] Manager Diversity: Patricio Kelley MD Blood, Urine Negative Normal NEG [facility] Comment on above: Performed By: #### U AMIC #### [facility] [address] [place] [address] [place] [address] Manager Diversity: Patricio Kelley MD Clarity (U) Clear Normal CLEAR [facility] Comment on above: Performed By: #### U AMIC #### [facility] [address] [place] [address] [place] [address] Manager Diversity: Patricio Kelley MD Color (U) Yellow Normal YEL [facility] Comment on above: Performed By: #### U AMIC #### [facility] [address] [place] [address] [place] [address] Manager Diversity: Patricio Kelley MD Epithelial cells LM Ql (Urine sed) 0 TO 2 Normal 0-25 [facility] Comment on above: Performed By: #### U AMIC #### [facility] [address] [place] [address] Manager Diversity: Patricio Kelley MD Glucose Ql (U) Negative Normal NEG [facility] in Hospital Comment on above: Performed By: #### U AMIC #### [facility] [address] [place] [address] Manager Diversity: Patricio Kelley MD Ketones Ql (U) Negative Normal NEG [facility] Comment on above: Performed By: #### U AMIC #### [facility] [address] [place] [address] Dr[place], [place] [phone] Manager Diversity: Patricio Kelley MD Leukocyte esterase Test strip Ql (U) Negative Normal NEG [facility] Comment on above: Performed By: #### U AMIC #### [facility] [address] [place] [address] [place] [address] Manager Diversity: Patricio Kelley MD Nitrite,Ur Negative Normal NEG [facility] Comment on above: Performed By: #### U AMIC #### [facility] [address] [place] [address] [place] [address] Manager Diversity: Patricio Kelley MD PH,Ur 6.0 Normal 5.0-9.0 [facility] Comment on above: Performed By: #### U AMIC #### [facility] [address] [place] [address] Manager Diversity: Patricio Kelley MD Protein Ql (U) Negative Normal NEG [facility] in Hospital Comment on above: Performed By: #### U AMIC #### [facility] [address] [place], [place] [id number] Manager Diversity: Patricio Kelley MD Spec. [place],Ur 1.020 Normal 1.010-1.020 [facility] Comment on above: Performed By: #### U AMIC #### [facility] [address] [place] [address] Manager Diversity: Patricio Kelley MD Urine RBC's None Normal 0-2 [facility] Comment on above: Performed By: #### U AMIC #### [facility] [address] [place] [id number] Manager Diversity: Patricio Kelley MD Urine WBC's None Normal 0-5 [facility] Comment on above: Performed By: #### U AMIC #### [facility] [address] [place] [address] Manager Diversity: Patricio Kelley MD Urobilinogen,Ur Normal Normal 0.0-1.0 [facility] Comment on above: Performed By: #### U AMIC #### [facility] [address] [place] [address] Manager Diversity: Patricio Kelley MD Microscopic Urinalysison Epithelial Cells UA 0 TO 2 [facility] RBC clumps Auto (Urine sed) [#/Area] GREATER THAN 100 [facility] WBC, UA None [facility] , urineon 3 Beta HCG ( test) Ql (U) Negative NEGATIVE [facility] Comment on above: Specimens with hCG l evels near the threshold of the test (25 mIU/mL) may give a negative or indeterminate result. In such cases, another test should be performed with a new specimen in 48-72 hours. If early is suspected clinically in this setting, correlation with quantitative serum b-hCG level is suggested. [employer] has confirmed the use of plasma for this test. This has not been cleared or approved by the U.S. Food and Drug Administration. The FDA has determined that such clearance is not necessary. [facility] Urinalysison 01-19-2023 Bilirubin Urine Negative NEGATIVE [facility] Color, UA Yellow Yellow [facility] Glucose Auto test strip (U) [Mass/Vol] Negative NEGATIVE [facility] Interpretation and review of laboratory results Abnormal [facility] Ketones (U) [Mass/Vol] Negative NEGATIVE [facility] Leukocyte esterase Auto test strip Ql (U) Negative NEGATIVE [facility] Nitrite Auto test strip Ql (U) Negative NEGATIVE [facility] Protein (U) [Mass/Vol] 6.0 mg/dL 5.0 - 9.0 [facility] Protein (U) [Mass/Vol] Negative NEGATIVE [facility] Specific [place], UA High 1.010 - 1.020 [facility] Turbidity UA Clear Clear [facility] Urine Hgb 3+ Abnormal NEGATIVE [facility] Urobilinogen, Urine Normal Normal [facility] Wet Prep, Genitalon 01-20-20 Interpretation and review of laboratory results Abnormal [facility] Microorganism or agent identified Nom (Unsp spec) NO CLUE CELLS SEEN [facility] Microorganism or agent identified Nom (Unsp spec) NO YEAST OBSERVED [facility] Microorganism or agent identified Nom (Unsp spec) TRICHOMONAS Abnormal [facility] Specimen Description .VAGINA [facility] Abdirahman 11-29-2021 KATHERINE Telephone (REMIGIO) ----- EDGAR ORTIZ ([id number]) 1995 F Date Time Provider Department 11/29/21 ALBINO KILGORE During your visit today, we recorded the following information about you: Albino Kilgore, BITA 11/29/2021 11:36 AM Signed Received call from pt who stating she has Von Willebrand's disease and Dr Pate told her she doesn't need to see him until she is ready to have children but she is going to [place] soon and they are requiring her to have the COVID vaccine so she needs to know if that is safe for her to received. BRM: Please advise. BITA Abreu MD 11/29/2021 12:31 PM Signed Definitely okay to receive the COVID vaccine. Thanks, BRM Albino Kilgore RN 11/29/2021 12:43 PM Signed Returned call to pt. No answer. Left message informing pt of Dr Pate's response and to return call if any further questions/concerns. Albino Kilgore RN Allergies As of Date: 11/29/2021 (No Known Allergies) Date Reviewed: 05/17/2014 Reviewed by: Jose Pate - Fully Assessed Reason for Visit: Medication Question [8298] Prescriptions as of 11/29/2021 - Desmopressin Acetate (STIMATE) 150 mcg/spray (0.1 mL) spry Use 1 [place] in the nose as needed. - Desmopressin Acetate (STIMATE) 150 mcg/spray spry Use 1 [place] in the nose as needed. - Desmopressin Acetate (STIMATE) 150 mcg/spray [place] Use 1 [place] in the nose once daily as needed. - lisinopril 2.5 mg tablet Take 2.5 mg by mouth once daily. - TOPIRAMATE (TOPAMAX ORAL) Take 100 mg by mouth. - lansoprazole (PREVACID) 30 mg capsule Take 1 capsule by mouth once daily. Problem List As Of Date 11/29/2021 Noted Resolved Von Willebrand disease [D68.0] Aortic stenosis [I35.0] 01/20/2013 Migraine headache [G43.909] 01/20/2013 GERD (gastroesophageal reflux disease) [K21.9] 01/20/2013 Encounter Status:Closed by ALBINO KILGORE on 11/29/[address] [facility] COVID-19, MOLECULARon 2020 SARS-CoV-2 (COVID-19) Ab IA Ql Not detected Normal Not Detected [facility] Comment on above: Result Comment: This test was performed under the FDA's Emergency Use Authorization (EUA). Testing was performed using the [place] ID NOW COVID-19 assay on the ID NOW platform. This test has not been approved for use in asymptomatic patients and its performance in this patient population has not been evaluated. Negative results do not rule out the presence of SARS-CoV-2/COVID-19. Fact sheets for the EUA can be found at the following links: For Healthcare Providers: https://www.MaxTraffic.gov/media/100462/download For Patients: https://www.fda.gov/media/667817/download , Urineon 0 Beta HCG ( test) Ql (U) Negative NEGATIVE [place], [place] Comment on above: Specimens with hCG l evels near the threshold of the test (25 mIU/mL) may give a negative or indeterminate result. In such cases, another test should be performed with a new specimen in 48-72 hours. If early is suspected clinically in this setting, correlation with quantitative serum b-hCG level is suggested. [employer] has confirmed the use of plasma for this test. This has not been cleared or approved by the U.S. Food and Drug Administration. The FDA has determined that such clearance is not necessary. Urinalysis with Microscopico n 05-16-2020 Amorphous, UA NOT REPORTED None [facility] Bacteria, UA NOT REPORTED None [place], [place] Bilirubin Urine Negative NEGATIVE [place], [place] Casts UA NOT REPORTED /LPF [place], [place] Color, UA YELLOW YELLOW [place] Crystals, UA NOT REPORTED None /HPF [facility], [place] Epithelial Cells UA 0 TO 2 [place] Glucose, Ur Negative NEGATIVE [place] Interpretation and review of laboratory results Abnormal [place] Ketones Ql (U) Negative NEGATIVE [facility] Leukocyte esterase Test strip Ql (U) Negative NEGATIVE [facility], [place] Mucus, UA NOT REPORTED None [place] Nitrite, Urine Negative NEGATIVE [facility], [place] Other Observations UA NOT REPORTED NOT REQ. [place] pH, UA 7.0 [place] Protein (U) [Mass/Vol] Negative NEGATIVE [place] RBC (U) [#/Vol] None [facility] Renal Epithelial, UA NOT REPORTED 0 /HPF [place] Specific [place], UA <1.005 [place], [place] Trichomonas, UA NOT REPORTED None [facility] [place] Turbidity UA CLEAR CLEAR [place] Urinalysis Comments NOT REPORTED [facility], [place] Urine Hgb Negative NEGATIVE [place] Urobilinogen, Urine Normal Normal [place] WBC, UA 0 TO 2 [place] Yeast, UA NOT REPORTED None [facility], [place] - [facility], [place] Otheron 12-01-2019 Evidence of mild bronchitis or atypical infection in the lingula. Workstation ID: [id number] [facility] EXAMINATION: XR CHES T AP/PA AND LAT 12/01/2019 2:48 pm HISTORY: ORDERING SYSTEM PROVIDED HISTORY: Persistent cough, recent flu, TECHNOLOGIST PROVIDED HISTORY: Illness/Other Reason for exam: cough Cancer History: no Surgery, RadiationHistory: no Encounter Type: Initial Additional signs and symptoms: cough ORDERING SYSTEM PROVIDED DIAGNOSIS CODES: J40 Bronchitis COMPARISON: None FINDINGS: Normal heart and mediastinum. Question of slight bronchial thickening or interstitial opacity in the lingula. No consolidation. No pleural effusion or pneumothorax. [facility] Interface, Rad In Fu ji Speechq - 12/01/2019 3:03 PM EST EXAMINATION: XR CHEST AP/PA AND LAT 12/01/2019 2:48 pm HISTORY: ORDERING SYSTEM PROVIDED HISTORY: Persistent cough, recent flu, TECHNOLOGIST PROVIDED HISTORY: Illness/Other Reason for exam: cough Cancer History: no Surgery, RadiationHistory: no Encounter Type: Initial Additional signs and symptoms: cough ORDERING SYSTEM PROVIDED DIAGNOSIS CODES: J40 Bronchitis COMPARISON: None FINDINGS: Normal heart and mediastinum. Question of slight bronchial thickening or interstitial opacity in the lingula. No consolidation. No pleural effusion or pneumothorax. IMPRESSION: Evidence of mild bronchitis or atypical infection in the lingula. Workstation ID: [id number] [facility] POC INFLUENZA A/B MOLECULARo n 10-18-2019 FLUAV Ag Ql (Nph) Negative Negative [facility] FLUBV Ag Ql (Nph) Positive Abnormal Negative [facility] Interpretation and review of laboratory results Abnormal [facility] Vital Signs Date Time Vital Sign Value Performing Clinician Edd lema 01-19-2023 21:23-0400 Body mass index (BMI) [Ratio] 33.84 kg/m2 Fior Villatoro DO Work Phone: [facility] [employer] 01-19-2023 21:23-0400 Body temperature 97 [degF] Fior Villatoro DO Work Phone[email or web address] 01-19-2023 21:23-0400 Body weight 83.92 kg Fior Villatoro DO Work Phone: [email or web address] 01-19-2023 21:23-0400 Diastolic blood pressure 95 mm[Hg] Fior Villatoro DO Work Phone: [facility] 01-19-2023 21:23-0400 Heart rate 87 /min Fior Villatoro DO Work Phone: [facility] [email or web address] 01-19-2023 21:23-0400 Respiratory rate 16 /min Fior Villatoro DO Work Phone: [facility] [id number] 01-19-2023 21:23-0400 SaO2% (BldA) [Mass fraction] 98 % Fior Villatoro DO Work Phone: [facility] [id number] 01-19-2023 21:23-0400 Systolic blood pressure 144 mm[Hg] Fior Villatoro DO Work Phone: [facility] 09-30-2020 12:52-0500 BP Diastolic 84 mm[Hg] [facility] 09-30-2020 12:52-0500 BP Systolic 131 mm[Hg] [facility] 09-30-2020 12:48-0500 BMI (Body Mass Index) 38.19 kg/m2 [facility] 09-30-2020 12:48-0500 Body weight 94.71 kg [facility] 09-30-2020 12:48-0500 Height 157.5 cm [facility] 09-30-2020 12:48-0500 Pulse (Heart Rate) 72 /min [facility] 09-30-2020 12:48-0500 Pulse Oximetry 98 % [facility] 09-30-2020 12:48-0500 Respiratory Rate 16 /min Veronica Stephen [facility] 08-11-2020 13:14-0400 Body Temperature 98.2 [degF] [facility] [place] 08-11-2020 13:14-0400 BP Diastolic 99 mm[Hg] Shannan Virgen [facility] , [place] 08-11-2020 13:14-0400 BP Systolic 132 mm[Hg] Shannan Solitario [facility] , [place] 08-11-2020 13:14-0400 Pulse (Heart Rate) 66 /min Shannan Solitario [facility], [place] 08-11-2020 13:14-0400 Pulse Oximetry 100 % Shannan Solitario [facility] , [place] 08-11-2020 13:14-0400 Respiratory Rate 16 /min Shannan Solitario [facility], [place] 03-23-2020 20:39-0400 BMI (Body Mass Index) 40.79 kg/m2 Arielle Gurerero [facility] 03-23-2020 20:39-0400 Body Temperature 98.01 [degF] Arielle Guerrero [facility] 03-23-2020 20:39-0400 Body weight 101.15 kg Arielle Guerrero [facility] 03-23-2020 20:39-0400 BP Diastolic 78 mm[Hg] Arielle Guerrero [facility] 03-23-2020 20:39-0400 BP Systolic 116 mm[Hg] Arielle Guerrero [facility] 03-23-2020 20:39-0400 Height 157.5 cm Ariellenicholas Guerrero [facility] 03-23-2020 20:39-0400 Pulse (Heart Rate) 80 /min Arielle Guerrero [facility] 03-23-2020 20:39-0400 Pulse Oximetry 98 % Arielle Guerrero [facility] 03-23-2020 20:39-0400 Respiratory Rate 16 /min Arielle Guerrero [facility] 12-01-2019 14:38-0500 BMI (Body Mass Index) 40.16 kg/m2 Gloria Akua [facility] 12-01-2019 14:38-0500 Body Temperature 97 [degF] Gloria Akua [facility] 12-01-2019 14:38-0500 Body weight 100.25 kg Gloria Akua [facility] 12-01-2019 14:38-0500 BP Diastolic 85 mm[Hg] Gloria Fatima [facility] 12-01-2019 14:38-0500 BP Systolic 129 mm[Hg] Gloria Fatima [facility] 12-01-2019 14:38-0500 Pulse (Heart Rate) 76 /min Gloria Fatima [facility] 12-01-2019 14:38-0500 Pulse Oximetry 97 % Gloria Fatima [facility] 12-01-2019 14:38-0500 Respiratory Rate 16 /min Gloria Fatima [facility] 10-18-2019 11:13-0500 BMI (Body Mass Index) 38.85 kg/m2 Arielle [facility] 10-18-2019 11:13-0500 Body Temperature 98.29 [degF] Arielle [facility] 10-18-2019 11:13-0500 Body weight 96.[address] [facility] 10-18-2019 11:13-0500 BP Diastolic 80 mm[Hg] [facility] 10-18-2019 11:13-0500 BP Systolic 128 mm[Hg] [facility] 10-18-2019 11:13-0500 Pulse (Heart Rate) 102 /min [facility] 10-18-2019 11:13-0500 Pulse Oximetry 99 % Arielle [facility] 10-18-2019 11:13-0500 Respiratory Rate 17 /min Arielle [facility] 07-06-2019 12:59-0400 BMI (Body Mass Index) 38.12 kg/m2 Bertha [facility] 07-06-2019 12:59-0400 Body Temperature 100.29 [degF] Bertha [facility] 07-06-2019 12:59-0400 Body weight 95.17 kg Bertha [facility] 07-06-2019 12:59-0400 BP Diastolic 79 mm[Hg] Bertha [facility] 07-06-2019 12:59-0400 BP Systolic 138 mm[Hg] Bertha [facility] 07-06-2019 12:59-0400 Height 158 cm Bertha [facility] 07-06-2019 12:59-0400 Pulse (Heart Rate) 80 /min Bertha [facility] 07-06-2019 12:59-0400 Pulse Oximetry 98 % Bertha [facility] 07-06-2019 12:59-0400 Respiratory Rate 16 /min Bertha Irving [facility] 06-21-2019 20:08-0400 BP Diastolic 107 mm[Hg] [facility] 06-21-2019 20:08-0400 BP Systolic 147 mm[Hg] [facility] 06-21-2019 19:24-0400 BMI (Body Mass Index) 38.23 kg/m2 [facility] 06-21-2019 19:24-0400 Body Temperature 98.49 [degF] [facility] 06-21-2019 19:24-0400 Body weight 94.8 kg [facility] 06-21-2019 19:24-0400 Pulse (Heart Rate) 66 /min [facility] 06-21-2019 19:24-0400 Pulse Oximetry 100 % [facility] 06-21-2019 19:24-0400 Respiratory Rate 14 /min [facility] Encounters Encounter Date Encounter Type Care Provider Facility Start: 06-09-2024 End: 06-11-2024 [facility] Start: 06-02-2024 End: 06-02-2024 ambulatory JUNG BIJAN Not Available Start: 05-28-2024 End: 05-30-2024 ambulatory JUNG DIOR [facility] Start: 05-28-2024 End: 05-30-2024 Subsequent hospital visit by physician [facility] Ultrasound Room [facility] Comment on above: Dyspareunia, female; Abnormal uterine bleeding Start: 05-27-2024 End: 05-27-2024 [facility]ulatory [facility] Start: 05-27-2024 End: 05-27-2024 Subsequent hospital visit by physician Joi Lewis MD Work Phone: [facility] Start: 05-18-2024 End: 05-18-2024 ambulatory JUNG BIJAN Not Available Start: 02-15-2024 End: 02-15-2024 Emergency department patient visit [facility] Helene [facility] Start: 02-09-2024 End: 02-09-[address] [facility] Start: 2023 End: [address] [facility] Start: 08-18-2023 End: 08-18-[address] [facility] Start: 06-23-2023 End: 06-23-2023 Emergency department patient visit [facility] Start: 01-19-2023 End: 01-19-2023 Emergency department patient visit Fior Villatoro Work Phone: [facility] Comment on above: Vaginal itching (Liz driss Dx) Start: 02-22-2021 End: 02-22-2021 ambulatory [facility] Start: 12-13-2020 End: 12-13-2020 Orders Only Anne Fishmanlashaun Colón Work Phone: [facility] Start: 09-30-2020 End: 09-30-2020 ambulatory [facility] Start: 09-30-2020 End: 09-30-2020 Office outpatient visit 15 minutes Veronica Sanford Blood Work Phone: [facility] Evi Comment on above: Impetigo (Primary Dx ) Start: 08-11-2020 End: 08-11-2020 Emergency department patient visit Shannan Solitario Work Phone: [facility] Comment on above: Acute rhinitis (Prim lisbet Dx) Start: 05-16-2020 End: 05-16-2020 Subsequent hospital visit by physician Joi [facility] Start: 03-23-2020 End: 03-23-2020 ambulatory [facility] Start: 03-23-2020 End: 03-23-2020 Office outpatient visit 15 minutes Arielle Guerrero Work Phone: [facility] Comment on above: Post-nasal drip (Liz driss Dx); Cough Start: 01-21-2020 End: 01-21-2020 Documentation procedure Bertha Merchant Work Phone: [facility] [place] Start: 12-01-2019 End: 12-01-2019 Subsequent hospital visit by physician Gloria Fatima Work Phone: [facility] Comment on above: Bronchitis Start: 12-01-2019 End: 12-01-2019 Office outpatient visit 15 minutes Gloria Fatima Work Phone: [facility] Comment on above: Lower respiratory tr act infection (Primary Dx) Start: 10-18-2019 End: 10-18-2019 Office outpatient visit 15 minutes Arielle Guerrero Work Phone: [facility] Comment on above: Influenza B (Primary Dx) Start: 07-06-2019 End: 07-06-2019 Office outpatient visit 15 minutes Bertha Irving Work Phone: [facility] Comment on above: Bronchitis (Primary Dx); Dermatitis Start: 06-21-2019 End: 06-21-2019 Office outpatient new 30 minutes Sun Min Mehul Work Phone: [facility] Comment on above: Sunburn (Primary Dx) Start: 10-02-2018 [facility] Procedures Date Procedure Procedure Detail Performing Clinician Start: 05-28-2024 Us pelvic nonobstetr ic real-time image complete Jung Serrato MD Work Phone: Start: 05-27-2024 Gonadotropin follicl e stimulating hormone Jung Serrato MD Work Phone: Start: 01-19-2023 Smr prim src wet beth nt nfct agt Fior Acuna Villatoro DO Work Phone: Start: 01-19-2023 Urinalysis microscopic only Fior Acuna Villatoro DO Work Phone: Start: 01-19-2023 Urnls dip stick/tabl et rgnt auto w/o microscopy Fior Acuna Villatoro DO Work Phone: Start: 05-16-2020 Urine test visual color cmprsn meths Blayne Hdez Work Phone: Start: 05-16-2020 Urnls dip stick/tabl et reagent auto microscopy Blayne Faria Lemuel Work Phone: Start: 12-01-2019 Standard chest X-ray Ka renato Junior Akua Work Phone: Start: 10-18-2019 Influenzavirus antib heena assay Arielle Guerrero Work Phone: Start: 08-18-2018 Microscopic observat ion [Identifier] in Cervix by Cyto stain Andra Carver Plan of Treatment Date Care Activity Detail Author Start: 02-07-2025 Depression Screen Depression Screen [facility] Start: 05-28-2024 End: 05-28-2024 Patient encounter procedure 05/28/2024 9:00 PM EDT Appointment [facility] [address] [id number] [facility]IA [facility] W PT [facility] Comment on above: MEDIA CHRIS W PT Start: 05-13-2024 Influenza vaccination Flu vaccine (# 1) [facility] Start: 06-13-2023 COVID-19 Vaccine ( season) COVID-19 Vaccine ( season) [facility] Start: 05-13-2023 Influenza vaccination Flu vacc ine (Season Ended) [facility] Start: 08-18-2021 Screening for malign ant neoplasm of cervix PAP SMEAR [facility] Start: 06-13-2020 Influenza vaccination Flu vaccine (# 1) [facility] [place] Start: 06-13-2020 Influenza vaccinatio n given [facility] Start: 04-11-2020 Influenza vaccinatio n given SEQUENTIAL INFLUENZA VACCINE (#1) [facility] Comment on above: Postponed from 06/13 (Patient Ill Today) Start: 06-13-2019 Influenza vaccinatio n given SEQUENTIAL INFLUENZA VACCINE (#1) [facility] Start: 04-28-2017 DTaP/Tdap/Td vaccine (7 - Td or Tdap) DTaP/Tdap/Td vaccine (7 - Td or Tdap) [facility] Start: 04-28-2017 Tetanus vaccination [facility] Start: 2015 Screening for malign ant neoplasm of cervix [facility] Start: 2013 DTaP/Tdap/Td vaccine (1 - Tdap) DTaP/Tdap/Td vaccine (1 - Tdap) [facility] Start: 2013 Hepatitis B vaccine (1 of 3 - 19+ 3-dose series) Hepatitis B vaccine (1 of 3 - 19+ 3-dose series) [facility] Start: 2012 Hepatitis C antibody , confirmatory test Hepatitis C Screening [facility] Start: 2010 COVID-19 Vaccine (1 of 2) COVID-19 Vaccine (1 of 2) [facility] Start: 2009 HIV screening HIV Screening [facility] Start: 2007 Varicella vaccine (1 of 2 - 13+ 2-dose series) Varicella vaccine (1 of 2 - 13+ 2-dose series) [facility] Start: 2006 Adolescent depressio n screening assessment Depression Screening (PHQ9) [facility] Start: 2006 Depression Screen Depression Screen [facility] Start: 2005 HPV vaccine (1 - 2-d ose series) HPV vaccine (1 - 2-dose series) [place], [place] Start: 1997 History and physical examination, annual for health maintenance Wellness Visit [facility] Start: 1995 Varicella vaccine (1 of 2 - 2-dose childhood series) Varicella vaccine (1 of 2 - 2-dose childhood series) [facility] Start: 05-10-1995 COVID-19 Vaccine (#1) COVID-19 Vacci ne (#1) [facility] Start: 1994 Depression screening using PHQ-9 (Patient Health Questionnaire 9) score DEPRESSION SCREENING (PHQ9) [facility] Start: 1994 Screening for Chlamy mc trachomatis Chlamydia Screening [facility] End: 01-19-2023 C.trachomatis N.gonorrhoeae DNA [facility] Work Phone: Comment on above: One Time for 1 Occur rences starting 01/19/2023 until 01/19/2023 End: 05-16-2020 C.trachomatis N.gonorrhoeae DNA, Urine C.trachomatis N.gonorrhoeae DNA, Urine Microbiology Routine Once for 1 Occurrences starting 05/16/2020 until 05/16/2020 [place], [place] Comment on above: Once for 1 Occurrenc es starting 05/16/2020 until 05/16/2020 C.trachomatis N.gonorrhoeae DNA, Urine C.trachomatis N.gonorrhoeae DNA, Urine Microbiology Routine 05/16/2020 12:28 PM EDT [place], [place] End: 01-19-2023 Culture, Urine [facility] Phone: Comment on above: One Time for 1 Occur rences starting 01/19/2023 until 01/19/2023 End: 05-27-2024 [facility] Phone: Comment on above: Once for 1 Occurrenc es starting 05/27/2024 until 05/27/2024 Payers Date Payer Category Payer Unknown [employer] xxxxxxxxxxxx 2017-Present xxxxxxxxxxxx [id number] 2017 Unknown [employer] [id number] 2017-Present [id number] 2015 Unknown [id number] 1994 Unknown [id number]..[id number] 1994 Unknown [id number] [id number]3 1994 Unknown [id number] 2.840.1.402264.3.579.2.903 1994 Unknown [id number] 2..840.1.762773.3.579.2.903 1994 Unknown [id number] 2.16.840.1.100329.3.579.2.175 1994 Unknown [id number] 2.16.840.1.133916.3.579.2.175 1994 Unknown [id number] 2.16.840.1.883460.3.579.2.175 1994 Unknown [id number] 2.16.840.1.672403.3.579.2.125 9 1994 Unknown [id number] 2.16.840.1.028747.3.579.2.125 9 1994 Unknown [id number] 2.16.840.1.693637.3.579.2.173 1994 Unknown [id number] 2.16.840.1.720138.3.579.2.173 1994 Unknown [id number] 2.16.840.1.651015.3.579.2.173 1994 Unknown [id number] 2.16.840.1.530559.3.579.2.173 1994 Unknown [id number] 2.16.840.1.990139.3.579.2.173 1994 Unknown [id number] 2.16.840.1.944971.3.579.2.173 1994 Unknown [id number] [id number] Social History Date Type Detail Facility Start: 06-21-2019 End: 2023 Tobacco smoking status PRIS Never smoker [facility] [employer] Start: 06-21-2019 End: 09-30-2020 Alcohol intake Current non-drinker of alcohol (finding) [facility] Start: 1995 Sex Assigned At Not on file [facility] Start: 01-09-2023 End: 01-19-2023 Exposure to SARS-CoV-2 (event) Not sure [facility] Start: 05-16-2020 End: 2023 Tobacco use and exposure Never used [facility] [place] Start: 05-16-2020 End: 02-15-2024 Alcohol intake [facility] Alcohol Comment Socially [facility] Start: 01-20-2023 History SDOH Alcohol Frequency 1 [facility] Work Phone: Start: 01-20-2023 History SDOH Alcohol Std Drinks 0 [facility] Work Phone: Start: 06-23-2023 End: 08-18-2023 History of Social function [facility] Start: 06-23-2023 End: 08-18-2023 Alcohol Use Disorder Identification Test - Consumption [AUDIT-C] [facility] How often to you hav e a drink containing alcohol? Never [facility] How many standard dr inks containing alcohol do you have on a typical day? Patient does not drink [facility] (I/We) worried wheth er (my/our) food would run out before (I/we) got money to buy more. Never true [facility] Hospital Discharge instructions 01-19-2023 Discharge InstructionsAttachments Note Date & Type Note Facility 01-19-2023 Hospital Discharg e instructions Fior Villatoro DO - 01/19/2023 11:23 PM EDT Take the Diflucan as prescribed. Flagyl for possible bacterial vaginosis. We will give you a call if any of the STD swabs come back positive otherwise make sure to follow-up with your woods manager regarding the lesion on your cervix in the next few days. If you have any concerns or questions regarding your care today, please discuss with your nurse or physician prior to leaving the emergency department. Thank you for allowing us to take care of you at [facility]. In the next few days you may receive a survey by mail or e-mail asking about the care you received during this visit. Please complete this if you are able, as this feedback helps us provide the best care possible. The following attachments cannot be sent through Care Everywhere.Vaginal Yeast Infection (Setswana)documented in this encounter [facility] [employer] Work Phone: Evaluation note Note Date & Type Note Facility Evaluation note Diagnosis Vaginal itching- Primary Pruritus of genital organs documented in this encounter [facility] [employer] Work Phone: Evaluation note Note Date & Type Note Facility Evaluation note Diagnosis Dyspareunia, female Dyspareunia Abnormal uterine bleeding Unspecified disorder of menstruation and other abnormal bleeding from female genital tract [facility] * Patient Instructions* Andra Carver PA-C - 06/21/2019 7:57 PM EDT Follow up with your family doctor in 1 week or immediately if symptoms worsen. Sunburn: Care Instructions Your Care Instructions A sunburn is skin damage from the sun's ultraviolet (UV) rays. Most sunburns cause mild pain and redness but affect only the outer layer of skin. These are called first-degree arriaza. The red skin might hurt when you touch it. These sunburns are mild and can usually be treated at home. Skin that is red and painful and that swells up and blisters may mean that deep skin layers and nerve endings have been damaged. These are second-degree arriaza. This type of sunburn is usually more painful and takes longer to heal. Follow-up care is a olivas part of your treatment and safety. Be sure to make and go to all appointments, and call your doctor if you are having problems. It's also a good idea to know your test resultsand keep a list of the medicines you take. How can you care for yourself at home? Use cool cloths on the sunburned areas. Take cool showers or baths often. Apply soothing lotions with aloe vera to sunburned areas. Do not apply lotions to blistered skin. A sunburn can cause a mild fever and a headache. Lie down in a cool, quiet room to relieve the headache. A headache may be caused by not getting enough fluids, which is called dehydration, so drinking fluids may help. Take anti-inflammatory medicines to reduce pain, swelling, and fever. These include ibuprofen (Advil, Motrin) and naproxen (Aleve). Read and follow all instructions on the label. Use lotion to relieve the itching when your skin peels. There is nothing you can do to stop skin from peeling after a sunburn. It is part of the healing process. Protect your skin from the sun with sunscreen, hats with wide brims, sunglasses, and loose-fitting,tightly woven clothing that covers your arms and legs. Caring for blisters Small blisters usually heal on their own. Do not try to break the blisters. Just leave them alone. Do not cover the blisters unless something such as clothing is rubbing against them. If you do cover them, apply a loose bandage. You can use tape to hold the bandage on, but do not let the tape touch the blisters. Avoid wearing clothes or shoes or doing activities that rub or irritate the blisters until they have healed. Larger blisters, which are the size of a nickel or larger, usually heal without problems. If you have a large blister, you can consider draining it, unless your doctor told you not to. Clean a needle with rubbing alcohol or soap and water, then use it to gently puncture the edge of the blister. Press the fluid in the blister toward the hole you made. Wash the blister after you have drained it, and pat it dry with clean gauze. Do not remove the flap of skin covering the blister unless it tears or gets dirty or pus forms under it. The flap protects the healing skin underneath. Put a thin layer of petroleum jelly on the bandage before you apply it. This will keep the bandage from sticking to the blister. Do not use alcohol or iodine on the blister because these may make theblister heal more slowly. Loosely apply a bandage or gauze. You can use tape to hold the bandage on, but do not let the tape touch the blister. Do not wrap tape completely around a hand, arm, foot, or leg because it could cutoff the blood supply if the limb swells. If the tape is too tight, you may develop numbness, tingling, pain, or cool and pale or swollen skin below the tape. Change the bandage every day and any time it gets wet or dirty. You can soak the bandage in cool water just before removing it to make it less painful to take off. Avoid wearing clothes or shoes or doing activities that rub or irritate the blisters until they have healed. When should you call for help? Call your doctor now or seek immediate medical care if: You have signs of needing more fluids. You have sunken eyes and a dry mouth, and you pass only a little dark urine. You have signs of infection, such as: ? Increased pain, swelling, warmth, or redness. ? Red streaks leading from the area. ? Pus draining from the area. ? A fever. Watch closely for changes in your health, and be sure to contact your doctor if: You do not get better as expected. Where can you learn more? Log into your personal health record on https://Tiendeo.[employer] and enter Z939 in the Education box to learn more about Sunburn: Care Instructions. Current as of: July 05, 2018 Content Version: 12.1 5712-2013 [employer]. Care instructions adapted under license by your healthcare professional. If you have questions about a medical condition or this instruction, always ask your healthcare professional. [employer] disclaims any warranty or liability for your use of this information. documented in this encounter* Patient Instructions* Bertha Irving PA-C - 07/06/2019 1:13 PM EDT Bronchitis: Care Instructions Your Care Instructions Bronchitis is inflammation of the bronchial tubes, which carry air to the lungs. The tubes swell and produce mucus, or phlegm. The mucus and inflamed bronchial tubes make you cough. You may have trouble breathing. Most cases of bronchitis are caused by viruses like those that cause colds. Antibiotics usually do not help and they may be harmful. Bronchitis usually develops rapidly and lasts about 2 to 3 weeks in otherwise healthy people. Follow-up care is a olivas part of your treatment and safety. Be sure to make and go to all appointments, and call your doctor if you are having problems. It's also a good idea to know your test resultsand keep a list of the medicines you take. How can you care for yourself at home? Take all medicines exactly as prescribed. Call your doctor if you think you are having a problem with your medicine. Get some extra rest. Take an pthz-kds-qzjesuo pain medicine, such as acetaminophen (Tylenol), ibuprofen (Advil, Motrin),or naproxen (Aleve) to reduce fever and relieve body aches. Read and follow all instructions on thelabel. Do not take two or more pain medicines at the same time unless the doctor told you to. Many pain medicines have acetaminophen, which is Tylenol. Too much acetaminophen (Tylenol) can be harmful. Take an iqkp-nqk-gcztenb cough medicine that contains dextromethorphan to help quiet a dry, hackingcough so that you can sleep. Avoid cough medicines that have more than one active ingredient. Read and follow all instructions on the label. Breathe moist air from a humidifier, hot shower, or sink filled with hot water. The heat and moisture will thin mucus so you can cough it out. Do not smoke. Smoking can make bronchitis worse. If you need help quitting, talk to your doctor about stop-smoking programs and medicines. These can increase your chances of quitting for good. When should you call for help? Call 911 anytime you think you may need emergency care. For example, call if: You have severe trouble breathing. Call your doctor now or seek immediate medical care if: You have new or worse trouble breathing. You cough up dark brown or bloody mucus (sputum). You have a new or higher fever. You have a new rash. Watch closely for changes in your health, and be sure to contact your doctor if: You cough more deeply or more often, especially if you notice more mucus or a change in the color of your mucus. You are not getting better as expected. Where can you learn more? Log into your personal health record on https://Yassetst.[employer] and enter H333 in the Education box to learn more about Bronchitis: Care Instructions. Current as of: June 17, 2018 Content Version: 12.20058960-5373 [employer]. Care instructions adapted under license by your healthcare professional. If you have questions about a medical condition or this instruction, always ask your healthcare professional. [employer] disclaims any warranty or liability for your use of this information. documented in this encounter* Patient Instructions* Arielle Guerrero PA-C - 10/18/2019 12:07 PM EST Take prescribed medication(s) as directed. Push fluids. Take OTC tylenol as needed for fever. If symptoms worsen or new ones develop, go to the ER immediately for further evaluation. Follow up with your PCP if no improvement in 3-5 days for a recheck, sooner if symptoms worsen before then. Influenza (Flu): Care Instructions Your Care Instructions Influenza (flu) is an infection in the lungs and breathing passages. It is caused by the influenza virus. There are different strains, or types, of the flu virus from year to year. Unlike the common cold, the flu comes on suddenly and the symptoms, such as a cough, congestion, fever, chills, fatigue, aches, and pains, are more severe. These symptoms may last up to 10 days. Although the flu can make you feel very sick, it usually doesn't cause serious health problems. Home treatment is usually all you need for flu symptoms. But your doctor may prescribe antiviral medicine to prevent other health problems, such as pneumonia, from developing. Older people and those who have a long-term health condition, such as lung disease, are most at risk for having pneumonia or other health problems. Follow-up care is a olivas part of your treatment and safety. Be sure to make and go to all appointments, and call your doctor if you are having problems. It's also a good idea to know your test resultsand keep a list of the medicines you take. How can you care for yourself at home? Get plenty of rest. Drink plenty of fluids, enough so that your urine is light yellow or clear like water. If you have kidney, heart, or liver disease and have to limit fluids, talk with your doctor before you increase the amount of fluids you drink. Take an hatn-ixb-khsjxes pain medicine if needed, such as acetaminophen (Tylenol), ibuprofen (Advil, Motrin), or naproxen (Aleve), to relieve fever, headache, and muscle aches. Read and follow all instructions on the label. No one younger than 20 should take aspirin. It has been linked to Geovanna syndrome, a serious illness. Do not smoke. Smoking can make the flu worse. If you need help quitting, talk to your doctor about stop-smoking programs and medicines. These can increase your chances of quitting for good. Breathe moist air from a hot shower or from a sink filled with hot water to help clear a stuffy nose. Before you use cough and cold medicines, check the label. These medicines may not be safe for youngchildren or for people with certain health problems. If the skin around your nose and lips becomes sore, put some petroleum jelly on the area. To ease coughing: ? Drink fluids to soothe a scratchy throat. ? Suck on cough drops or plain hard candy. ? Take an cmxw-ang-oyfrfgf cough medicine that contains dextromethorphan to help you get some sleep. Read and follow all instructions on the label. ? Raise your head at night with an extra pillow. This may help you rest if coughing keeps you awake. Take any prescribed medicine exactly as directed. Call your doctor if you think you are having a problem with your medicine. To avoid spreading the flu Wash your hands regularly, and keep your hands away from your face. Stay home from school, work, and other public places until you are feeling better and your fever has been gone for at least 24 hours. The fever needs to have gone away on its own without the help of medicine. Ask people living with you to talk to their doctors about preventing the flu. They may get antiviral medicine to keep from getting the flu from you. To prevent the flu in the future, get a flu vaccine every fall. Encourage people living with you toget the vaccine. Cover your mouth when you cough or sneeze. When should you call for help? Call 911 anytime you think you may need emergency care. For example, call if: You have severe trouble breathing. Call your doctor now or seek immediate medical care if: You have new or worse trouble breathing. You seem to be getting much sicker. You feel very sleepy or confused. You have a new or higher fever. You get a new rash. Watch closely for changes in your health, and be sure to contact your doctor if: You begin to get better and then get worse. You are not getting better after 1 week. Where can you learn more? Log into your personal health record on https://Yassetst.ChatterPlug and enter L652 in the Education box to learn more about Influenza (Flu): Care Instructions. Current as of: March 21, 2019 Content Version: 12.3 [employer]. Care instructions adapted under license by your healthcare professional. If you have questions about a medical condition or this instruction, always ask your healthcare professional. [employer] disclaims any warranty or liability for your use of this information. documented in this encounter* Patient Instructions* Gloria Fatima PA-C - 12/01/2019 2:52 PM EST Follow up with PCP in 7-10 days. ED if worse. Discussed over the counter medications for symptomatic management and side effects of medications. Recommended taking all medications with food and to stop medications if they develop any signs of anallergic reaction. Educated patient and/or guardian about signs and symptoms that would warrant further immediate evaluation. Recommended that they should return to urgent care, make an appointment with their family physician, or go to the emergency room if symptoms persist or get acutely worse. Recommended follow up within the next week with their PCP or to get established with a PCP soon in order to follow up appropriately. Pneumonia: Care Instructions Your Care Instructions Pneumonia is an infection of the lungs. Most cases are caused by infections from bacteria or viruses. Pneumonia may be mild or very severe. If it is caused by bacteria, you will be treated with antibiotics. It may take a few weeks to a few months to recover fully from pneumonia, depending on how sickyou were and whether your overall health is good. Follow-up care is a olivas part of your treatment and safety. Be sure to make and go to all appointments, and call your doctor if you are having problems. It's also a good idea to know your test resultsand keep a list of the medicines you take. How can you care for yourself at home? Take your antibiotics exactly as directed. Do not stop taking the medicine just because you are feeling better. You need to take the full course of antibiotics. Take your medicines exactly as prescribed. Call your doctor if you think you are having a problem with your medicine. Get plenty of rest and sleep. You may feel weak and tired for a while, but your energy level will improve with time. To prevent dehydration, drink plenty of fluids, enough so that your urine is light yellow or clear like water. Choose water and other caffeine-free clear liquids until you feel better. If you have kidney, heart, or liver disease and have to limit fluids, talk with your doctor before you increase the amount of fluids you drink. Take care of your cough so you can rest. A cough that brings up mucus from your lungs is common with pneumonia. It is one way your body gets rid of the infection. But if coughing keeps you from resting or causes severe fatigue and chest-wall pain, talk to your doctor. He or she may suggest that youtake a medicine to reduce the cough. Use a vaporizer or humidifier to add moisture to your bedroom. Follow the directions for cleaning the machine. Do not smoke or allow others to smoke around you. Smoke will make your cough last longer. If you need help quitting, talk to your doctor about stop-smoking programs and medicines. These can increase your chances of quitting for good. Take an ylwv-qzj-nwadgix pain medicine, such as acetaminophen (Tylenol), ibuprofen (Advil, Motrin),or naproxen (Aleve). Read and follow all instructions on the label. Do not take two or more pain medicines at the same time unless the doctor told you to. Many pain medicines have acetaminophen, which is Tylenol. Too much acetaminophen (Tylenol) can be harmful. If you were given a spirometer to measure how well your lungs are working, use it as instructed. This can help your doctor tell how your recovery is going. To prevent pneumonia in the future, talk to your doctor about getting a flu vaccine (once a year) and a pneumococcal vaccine (one time only for most people). When should you call for help? Call 911 anytime you think you may need emergency care. For example, call if: You have severe trouble breathing. Call your doctor now or seek immediate medical care if: You cough up dark brown or bloody mucus (sputum). You have new or worse trouble breathing. You are dizzy or lightheaded, or you feel like you may faint. Watch closely for changes in your health, and be sure to contact your doctor if: You have a new or higher fever. You are coughing more deeply or more often. You are not getting better after 2 days (48 hours). You do not get better as expected. Where can you learn more? Log into your personal health record on https://Yassetst.[employer]ters.[employer] and enter D336 in the Education box to learn more about Pneumonia: Care Instructions. Current as of: March 21, 2019 Content Version: 12.3 9577-2206 [employer]. Care instructions adapted under license by your healthcare professional. If you have questions about a medical condition or this instruction, always ask your healthcare professional. [employer] disclaims any warranty or liability for your use of this information. documented in this encounter* Patient Instructions* Arielle Guerrero PA-C - 03/23/2020 8:53 PM EDT Take prescribed medication(s) as directed. Push fluids. If symptoms worsen or new ones develop, go to the ER immediately for further evaluation. Follow up with your PCP if no improvement in 3-5 days for a recheck, sooner if symptoms worsen before then. Cough: Care Instructions Your Care Instructions A cough is your body's response to something that bothers your throat or airways. Many things can cause a cough. You might cough because of a cold or the flu, bronchitis, or asthma. Smoking, postnasal drip, allergies, and stomach acid that backs up into your throat also can cause coughs. A cough is a symptom, not a disease. Most coughs stop when the cause, such as a cold, goes away. You can take a few steps at home to cough less and feel better. Follow-up care is a olivas part of your treatment and safety. Be sure to make and go to all appointments, and call your doctor if you are having problems. It's also a good idea to know your test resultsand keep a list of the medicines you take. How can you care for yourself at home? Drink lots of water and other fluids. This helps thin the mucus and soothes a dry or sore throat. Honey or lemon juice in hot water or tea may ease a dry cough. Take cough medicine as directed by your doctor. Prop up your head on pillows to help you breathe and ease a dry cough. Try cough drops to soothe a dry or sore throat. Cough drops don't stop a cough. Medicine-flavored cough drops are no better than candy-flavored drops or hard candy. Do not smoke. Avoid secondhand smoke. If you need help quitting, talk to your doctor about stop-smoking programs and medicines. These can increase your chances of quitting for good. When should you call for help? Call 911 anytime you think you may need emergency care. For example, call if: You have severe trouble breathing. Call your doctor now or seek immediate medical care if: You cough up blood. You have new or worse trouble breathing. You have a new or higher fever. You have a new rash. Watch closely for changes in your health, and be sure to contact your doctor if: You cough more deeply or more often, especially if you notice more mucus or a change in the color of your mucus. You have new symptoms, such as a sore throat, an earache, or sinus pain. You do not get better as expected. Where can you learn more? Log into your personal health record on [email or web address].ChatterPlug and enter D279 in the Education box to learn more about Cough: Care Instructions. Current as of: March 21, 2019 Content Version: 12.3 8985-5102 [email or web address]. Care instructions adapted under license by your healthcare professional. If you have questions about a medical condition or this instruction, always ask your healthcare professional. [employer] disclaims any warranty or liability for your use of this information. documented in this encounter* Patient Instructions* Veronica Stephen DO - 09/30/2020 1:14 PM EST Impetigo: Care Instructions Your Care Instructions Impetigo (say vo-hxe-SY-go ) is a skin infection caused by bacteria. It causes blisters that breakand become oozing, yellow, crusty sores. Impetigo can be anywhere on the body. Scratching the sores may spread the infection to other parts of the body. You can also spread it to others through close contact or when you share towels, clothing, and other items. Prescription antibiotic ointment or pills can usually cure impetigo. (After a day of antibiotics, the infection should not spread.) Follow-up care is a olivas part of your treatment and safety. Be sure to make and go to all appointments, and call your doctor if you are having problems. It's also a good idea to know your test resultsand keep a list of the medicines you take. How can you care for yourself at home? Apply antibiotic ointment exactly as instructed. If your doctor prescribed antibiotic pills, take them as directed. Do not stop using them just because you feel better. You need to take the full course of antibiotics. Gently wash the sores with soap and water each day. If crusts form, your doctor may advise you to soften or remove the crusts. You can do this by soaking them in warm water and patting them dry. Thiscan help the cream or ointment treat impetigo. After you touch the area, wash your hands with soap and water. Or you can use an alcohol-based handsanitizer. Don't share items such as towels, sheets, and clothing until the infection is gone. Wash anything that may have touched the infected area. Try to avoid scratching the area. When should you call for help? Call your doctor now or seek immediate medical care if: You have symptoms of a worse infection, such as: ? Increased pain, swelling, warmth, or redness. ? Red streaks leading from the area. ? Pus draining from the area. ? A fever. Impetigo gets worse or spreads to other areas. Watch closely for changes in your health, and be sure to contact your doctor if: You do not get better as expected. Where can you learn more? Log into your personal health record on [email or web address].ChatterPlug and enter S909 in the Education box to learn more about Impetigo: Care Instructions. Current as of: March 08, 2020 Content Version: 12.7 [email or web address]. Care instructions adapted under license by your healthcare professional. If you have questions about a medical condition or this instruction, always ask your healthcare professional. [employer] disclaims any warranty or liability for your use of this information. documented in this encounter History of Present Illness * Andra Carver PA-C - 06/21/2019 8:00 PM EDT PATIENT NAME: Edgar Ortiz [facility] [address] [facility] [id number] : 1995 DATE OF VISIT: 06/21/2019 #: [id number] PROVIDER: Andra Carver PA-C Chief Complaint Patient presents with Sunburn on Friday, on her chest, arms and neck. She has used aloe and cold showers SUBJECTIVE 23 y.o. female presents Sunburn (on Friday, on her chest, arms and neck. She has used aloe and cold showers) Rash This is a new problem. The current episode started in the past 7 days. The problem is unchanged. The affected locations include the neck, left shoulder, right shoulder and chest. The rash is characterized by pain, redness and swelling. Associated with: Sun. Pertinent negatives include no congestion, cough, diarrhea, facial edema, fatigue, fever, joint pain, rhinorrhea, shortness of breath, sore throat or vomiting. MEDICAL ISSUES Past Medical History: Diagnosis Date Aortic stenosis Bicuspid aortic valve with stenosis and regurgitation Migraine Von Willebrand disease (HCC) Patient Active Problem List Diagnosis Bicuspid aortic valve Von Willebrand disease (HCC) Migraine Obesity SOCIAL HISTORY Social History Socioeconomic History Marital status: Single Spouse name: Not on file Number of children: Not on file Years of education: Not on file Highest education level: Not on file Occupational History Not on file Social Needs Financial resource strain: Not on file Food insecurity: Worry: Not on file Inability: Not on file Transportation needs: Medical: Not on file Non-medical: Not on file Tobacco Use Smoking status: Never Smoker Smokeless tobacco: Never Used Substance and Sexual Activity Alcohol use: No Drug use: No Sexual activity: Not on file Lifestyle Physical activity: Days per week: Not on file Minutes per session: Not on file Stress: Not on file Relationships Social connections: Talks on phone: Not on file Gets together: Not on file Attends confucianism service: Not on file Active member of club or organization: Not on file Attends meetings of clubs or organizations: Not on file Relationship status: Not on file Other Topics Concern Not on file Social History Narrative Lives with boyfriend. Attends [employer] and studying psychology. FAMILY HISTORY Family History Problem Relation Age of Onset Heart defect Mother Diabetes Father Hypertension Father Heart defect Sister Cancer Maternal Grandmother Cancer Paternal Grandmother REVIEW OF SYSTEMS Review of Systems Constitutional: Negative for chills, diaphoresis, fatigue and fever. HENT: Negative for congestion, rhinorrhea and sore throat. Eyes: Negative for discharge and redness. Respiratory: Negative for cough, shortness of breath and wheezing. Cardiovascular: Negative for chest pain and leg swelling. Gastrointestinal: Negative for abdominal pain, diarrhea, nausea and vomiting. Genitourinary: Negative for dysuria and hematuria. Musculoskeletal: Negative for joint pain and joint swelling. Skin: Positive for rash. Neurological: Negative for dizziness, syncope, light-headedness and headaches. Hematological: Does not bruise/bleed easily. Psychiatric/Behavioral: Negative for agitation and confusion. MEDICATIONS PRIOR TO VISIT Current Outpatient Medications on File Prior to Visit Medication Sig Dispense Refill levonorgestrel (MIRENA) 20 mcg/24 hr (5 years) IUD 1 each by Intrauterine route . topiramate (TOPAMAX) 25 MG tablet Take 1 (one) tablet (25 mg total) by mouth nightly . 30 tablet 0 No current facility-administered medications on file prior to visit. ALLERGIES/INTOLERANCES Allergies Allergen Reactions Ibuprofen Bruising t/o the body OBJECTIVE BP (!) 137/92 (BP Location: Right arm) Pulse 66 Temp 98.5 F (36.9 C) (Oral) Resp 14 Wt 94.8kg (209 lb) SpO2 100% BMI 38.23 kg/m Physical Exam Constitutional: She is oriented to person, place, and time. She appears well- developed. No distress. HENT: Head: Normocephalic. Eyes: Conjunctivae are normal. Neck: Normal range of motion. Neck supple. Pulmonary/Chest: Effort normal. No respiratory distress. Abdominal: Soft. There is no tenderness. Musculoskeletal: Normal range of motion. General: No tenderness or edema. Comments: Full ROM of b/l shoulders with pain; upper extremities are NV Intact Neurological: She is alert and oriented to person, place, and time. Skin: Skin is warm and dry. Rash (1st degree burn to chest, neck, b/l anterior shoulders; partial thickness, 2nd degree burn to L posterior shoulder with multiple small intact blisters ; no evidence of infection) noted. She is not diaphoretic. Psychiatric: She has a normal mood and affect. Her behavior is normal. ASSESSMENT/PLAN (expressed as patient instructions): 1. Sunburn methylPREDNISolone (MEDROL DOSEPACK) 4 mg tablet silver sulfADIAZINE (SILVADENE) 1 % cream ADDITIONAL CLINICAL COMMENTS None Procedures ORDERS PLACED THIS VISIT No orders of the defined types were placed in this encounter. MEDICATION LIST AT END OF VISIT Current Outpatient Medications Medication Sig Dispense Refill levonorgestrel (MIRENA) 20 mcg/24 hr (5 years) IUD 1 each by Intrauterine route . methylPREDNISolone (MEDROL DOSEPACK) 4 mg tablet follow package directions . 21 tablet 0 silver sulfADIAZINE (SILVADENE) 1 % cream Apply thin film to left posterior shoulder region and L side of neck daily x 7 days . 50 g 1 topiramate (TOPAMAX) 25 MG tablet Take 1 (one) tablet (25 mg total) by mouth nightly . 30 tablet 0 No current facility-administered medications for this visit. MEDICATIONS STOPPED or CHANGED THIS VISIT There are no discontinued medications. No follow-ups on file. documented in this encounter* Bertha Irving PA-C - 07/06/2019 1:11 PM EDT PATIENT NAME: Edgar Ortiz [facility] [address] [place] [address] : 1995 DATE OF VISIT: 07/06/2019 #: [id number] PROVIDER: Bertha Irving PA-C Chief Complaint Patient presents with URI Coughing, SOB, with associated chest and mid back pain. Sx for last 2 days. Please review chart forcardiac hx. SUBJECTIVE 23 y.o. female presents URI (Coughing, SOB, with associated chest and mid back pain. Sx for last 2 days. Please review chart for cardiac hx. ) Cough This is a new problem. The current episode started in the past 7 days (2-3d). The problem has been unchanged. The problem occurs constantly. The cough is non- productive. Associated symptoms include nasal congestion, postnasal drip and rhinorrhea. Pertinent negatives include no chest pain, chills, ear congestion, ear pain, fever, headaches, heartburn, hemoptysis, myalgias, rash, sore throat, shortness of breath, sweats, weight loss or wheezing. She has tried rest for the symptoms. There is no history of asthma or COPD. MEDICAL ISSUES Past Medical History: Diagnosis Date Aortic stenosis Bicuspid aortic valve with stenosis and regurgitation Migraine Von Willebrand disease (HCC) Patient Active Problem List Diagnosis Bicuspid aortic valve Von Willebrand disease (HCC) Migraine Obesity SOCIAL HISTORY Social History Socioeconomic History Marital status: Single Spouse name: Not on file Number of children: Not on file Years of education: Not on file Highest education level: Not on file Occupational History Not on file Social Needs Financial resource strain: Not on file Food insecurity: Worry: Not on file Inability: Not on file Transportation needs: Medical: Not on file Non-medical: Not on file Tobacco Use Smoking status: Never Smoker Smokeless tobacco: Never Used Substance and Sexual Activity Alcohol use: No Drug use: No Sexual activity: Not on file Lifestyle Physical activity: Days per week: Not on file Minutes per session: Not on file Stress: Not on file Relationships Social connections: Talks on phone: Not on file Gets together: Not on file Attends confucianism service: Not on file Active member of club or organization: Not on file Attends meetings of clubs or organizations: Not on file Relationship status: Not on file Other Topics Concern Not on file Social History Narrative Lives with boyfriend. Attends [employer] and studying psychology. FAMILY HISTORY Family History Problem Relation Age of Onset Heart defect Mother Diabetes Father Hypertension Father Heart defect Sister Cancer Maternal Grandmother Cancer Paternal Grandmother REVIEW OF SYSTEMS Review of Systems Constitutional: Negative for chills, fever and weight loss. HENT: Positive for postnasal drip and rhinorrhea. Negative for ear pain and sore throat. Respiratory: Positive for cough. Negative for hemoptysis, shortness of breath and wheezing. Cardiovascular: Negative for chest pain. Gastrointestinal: Negative for heartburn. Musculoskeletal: Negative for myalgias. Skin: Negative for rash. Neurological: Negative for headaches. MEDICATIONS PRIOR TO VISIT Current Outpatient Medications on File Prior to Visit Medication Sig Dispense Refill acetaminophen (TYLENOL) 500 MG tablet Take 500 mg by mouth every 6 (six) hours as needed for pain . diphenhydrAMINE (BENADRYL) 50 MG capsule Take 50 mg by mouth every 6 (six) hours as needed for itching . DM/PE/acetaminophen/doxylamine (VICKS DAYQUIL-NYQUIL ORAL) Take by mouth . levonorgestrel (MIRENA) 20 mcg/24 hr (5 years) IUD 1 each by Intrauterine route . methylPREDNISolone (MEDROL DOSEPACK) 4 mg tablet follow package directions . 21 tablet 0 silver sulfADIAZINE (SILVADENE) 1 % cream Apply thin film to left posterior shoulder region and L side of neck daily x 7 days . 50 g 1 topiramate (TOPAMAX) 25 MG tablet Take 1 (one) tablet (25 mg total) by mouth nightly . 30 tablet 0 No current facility-administered medications on file prior to visit. ALLERGIES/INTOLERANCES Allergies Allergen Reactions Ibuprofen Bruising t/o the body OBJECTIVE BP 138/79 (BP Location: Left arm, Patient Position: Sitting, BP Cuff Size: X- large Adult) Pulse 80 Temp 100.3 F (37.9 C) (Tympanic) Resp 16 Ht 5' 2.21 Wt 95.2 kg (209 lb 12.8 oz) SpO2 98% ? No BMI 38.12 kg/m Physical Exam Constitutional: She is oriented to person, place, and time. She appears well- developed and well-nourished. No distress. HENT: Head: Normocephalic and atraumatic. Right Ear: Tympanic membrane, external ear and ear canal normal. Left Ear: Tympanic membrane, external ear and ear canal normal. Nose: Nose normal. No mucosal edema. Right sinus exhibits no maxillary sinus tenderness and no frontal sinus tenderness. Left sinus exhibits no maxillary sinus tenderness and no frontal sinus tenderness. Mouth/Throat: Oropharynx is clear and moist. No uvula swelling. No oropharyngeal exudate, posteriororopharyngeal edema or posterior oropharyngeal erythema. Eyes: Conjunctivae are normal. Right eye exhibits no discharge. Left eye exhibits no discharge. Neck: Normal range of motion. Neck supple. Cardiovascular: Normal rate, regular rhythm and normal heart sounds. Pulmonary/Chest: Effort normal and breath sounds normal. No respiratory distress. She has no wheezes. She has no rales. Abdominal: She exhibits no distension. Musculoskeletal: Normal range of motion. Lymphadenopathy: She has no cervical adenopathy. Neurological: She is alert and oriented to person, place, and time. Skin: No rash noted. She is not diaphoretic. Psychiatric: She has a normal mood and affect. Her behavior is normal. Judgment and thought contentnormal. Nursing note and vitals reviewed. PROCEDURE Procedures Results No results found for this or any previous visit (from the past 168 hour(s)). ASSESSMENT/PLAN (expressed as patient instructions): 1. Bronchitis benzonatate (TESSALON) 200 MG capsule albuterol 90 mcg/actuation inhaler Return if symptoms worsen or fail to improve. An After Visit Summary was printed and given to the patient. ADDITIONAL CLINICAL COMMENTS Pt presenting with cough and congestion for the past 2 days. Examination today is unremarkable. No body aches or chest pain. She is having some SOB with coughing. Temp noted to be slightly elevated at 100.3F, but given her otherwise well appearance and exam I doubt this represents pneumonia or influenza. She is also outside of treatment window for influenza, so testing would not be worthwhile. Recommend supportive care with inhaler and Tessalon. May continue OTC medications as well for further relief. F/u with PCP in 3-5 days if symptoms persist, to ED if symptoms worsen. Pt agrees with plan and v/u. ORDERS PLACED THIS VISIT No orders of the defined types were placed in this encounter. MEDICATION LIST AT END OF VISIT Current Outpatient Medications Medication Sig Dispense Refill acetaminophen (TYLENOL) 500 MG tablet Take 500 mg by mouth every 6 (six) hours as needed for pain . diphenhydrAMINE (BENADRYL) 50 MG capsule Take 50 mg by mouth every 6 (six) hours as needed for itching . DM/PE/acetaminophen/doxylamine (VICKS DAYQUIL-NYQUIL ORAL) Take by mouth . levonorgestrel (MIRENA) 20 mcg/24 hr (5 years) IUD 1 each by Intrauterine route . albuterol 90 mcg/actuation inhaler Inhale 2 (two) puffs every 6 (six) hours as needed for wheezing . 1 Inhaler 0 benzonatate (TESSALON) 200 MG capsule Take 1 (one) capsule (200 mg total) by mouth 3 (three) times a day as needed for cough . 20 capsule 0 methylPREDNISolone (MEDROL DOSEPACK) 4 mg tablet follow package directions . 21 tablet 0 silver sulfADIAZINE (SILVADENE) 1 % cream Apply thin film to left posterior shoulder region and L side of neck daily x 7 days . 50 g 1 topiramate (TOPAMAX) 25 MG tablet Take 1 (one) tablet (25 mg total) by mouth nightly . 30 tablet 0 No current facility-administered medications for this visit. documented in this encounter* Arielle Guerrero PA-C - 10/18/2019 11:35 AM EST PATIENT NAME: Edgar Ortiz [facility] [address] [facility] [address] : 1995 DATE OF VISIT: 10/18/2019 #: [id number] PROVIDER: Arielle Guerrero PA-C Chief Complaint Patient presents with Emesis body aches, fever, dry cough, SUBJECTIVE 23 y.o. female presents Emesis (body aches, fever, dry cough, ) URI This is a new problem. The current episode started in the past 7 days. The problem has been unchanged. Associated symptoms include congestion, coughing, headaches, a sore throat and vomiting (post-tussive). Pertinent negatives include no abdominal pain, chest pain, diarrhea, ear pain, nausea, plugged ear sensation, rash, rhinorrhea, sinus pain or sneezing. She has tried acetaminophen and decongestant for the symptoms. The treatment provided mild relief. MEDICAL ISSUES Past Medical History: Diagnosis Date Aortic stenosis Bicuspid aortic valve with stenosis and regurgitation Migraine Von Willebrand disease (HCC) Patient Active Problem List Diagnosis Bicuspid aortic valve Von Willebrand disease (HCC) Migraine Obesity SOCIAL HISTORY Social History Socioeconomic History Marital status: Single Spouse name: Not on file Number of children: Not on file Years of education: Not on file Highest education level: Not on file Occupational History Not on file Social Needs Financial resource strain: Not on file Food insecurity Worry: Not on file Inability: Not on file Transportation needs Medical: Not on file Non-medical: Not on file Tobacco Use Smoking status: Never Smoker Smokeless tobacco: Never Used Substance and Sexual Activity Alcohol use: No Drug use: No Sexual activity: Not on file Lifestyle Physical activity Days per week: Not on file Minutes per session: Not on file Stress: Not on file Relationships Social connections Talks on phone: Not on file Gets together: Not on file Attends confucianism service: Not on file Active member of club or organization: Not on file Attends meetings of clubs or organizations: Not on file Relationship status: Not on file Other Topics Concern Not on file Social History Narrative Lives with boyfriend. Attends [employer] and studying psychology. FAMILY HISTORY Family History Problem Relation Age of Onset Heart defect Mother Diabetes Father Hypertension Father Heart defect Sister Cancer Maternal Grandmother Cancer Paternal Grandmother REVIEW OF SYSTEMS Review of Systems Constitutional: Positive for appetite change, chills, fatigue and fever. HENT: Positive for congestion, postnasal drip and sore throat. Negative for ear discharge, ear pain, rhinorrhea, sinus pressure, sinus pain and sneezing. Respiratory: Positive for cough. Negative for chest tightness and shortness of breath. Cardiovascular: Negative for chest pain and palpitations. Gastrointestinal: Positive for vomiting (post-tussive). Negative for abdominal distention, abdominal pain, anal bleeding, blood in stool, constipation, diarrhea, nausea and rectal pain. Musculoskeletal: Positive for arthralgias and myalgias. Skin: Negative for rash. Neurological: Positive for headaches. Negative for dizziness and light-headedness. Psychiatric/Behavioral: Negative for confusion. MEDICATIONS PRIOR TO VISIT Current Outpatient Medications on File Prior to Visit Medication Sig Dispense Refill levonorgestrel (MIRENA) 20 mcg/24 hr (5 years) IUD 1 each by Intrauterine route . acetaminophen (TYLENOL) 500 MG tablet Take 500 mg by mouth every 6 (six) hours as needed for pain . albuterol 90 mcg/actuation inhaler Inhale 2 (two) puffs every 6 (six) hours as needed for wheezing . (Patient not taking: Reported on 10/18/2019 .) 1 Inhaler 0 diphenhydrAMINE (BENADRYL) 50 MG capsule Take 50 mg by mouth every 6 (six) hours as needed for itching . DM/PE/acetaminophen/doxylamine (VICKS DAYQUIL-NYQUIL ORAL) Take by mouth . methylPREDNISolone (MEDROL DOSEPACK) 4 mg tablet follow package directions . (Patient not taking: Reported on 10/18/2019 .) 21 tablet 0 mupirocin (BACTROBAN) 2 % ointment Apply topically 3 (three) times a day . (Patient not taking: Reported on 10/18/2019 .) 22 g 0 silver sulfADIAZINE (SILVADENE) 1 % cream Apply thin film to left posterior shoulder region and L side of neck daily x 7 days . (Patient not taking: Reported on 10/18/2019 .) 50 g 1 topiramate (TOPAMAX) 25 MG tablet Take 1 (one) tablet (25 mg total) by mouth nightly . 30 tablet 0 No current facility-administered medications on file prior to visit. ALLERGIES/INTOLERANCES Allergies Allergen Reactions Ibuprofen Bruising t/o the body OBJECTIVE BP 128/80 Pulse (!) 102 Temp 98.3 F (36.8 C) (Tympanic) Resp 17 Wt 97 kg (213 lb 12.8 oz) SpO2 99% BMI 38.85 kg/m Physical Exam Constitutional: She is oriented to person, place, and time. She appears well- developed and well-nourished. She is cooperative. HENT: Head: Normocephalic and atraumatic. Right Ear: Tympanic membrane, external ear and ear canal normal. Left Ear: Tympanic membrane, external ear and ear canal normal. Nose: Mucosal edema present. No rhinorrhea. Right sinus exhibits no maxillary sinus tenderness and no frontal sinus tenderness. Left sinus exhibits no maxillary sinus tenderness and no frontal sinus tenderness. Mouth/Throat: Uvula is midline. Posterior oropharyngeal erythema present. No oropharyngeal exudate,posterior oropharyngeal edema or tonsillar abscesses. PND Neck: Normal range of motion. Cardiovascular: Regular rhythm and normal heart sounds. Pulmonary/Chest: Effort normal and breath sounds normal. Abdominal: Soft. Bowel sounds are normal. She exhibits no distension, no fluid wave, no ascites andno mass. There is no hepatosplenomegaly. There is no abdominal tenderness. There is no rigidity, norebound, no guarding, no CVA tenderness, no tenderness at McBurney's point and negative Pate's sign. Musculoskeletal: Normal range of motion. Neurological: She is alert and oriented to person, place, and time. Skin: No rash noted. Psychiatric: She has a normal mood and affect. Her speech is normal and behavior is normal. Judgment and thought content normal. PROCEDURE Procedures Results Recent Results (from the past 168 hour(s)) POC Influenza A/B, Molecular Collection Time: 10/18/19 12:00 PM Result Value Ref Range Rapid Influenza A Ag Negative Negative Rapid Influenza B Ag Positive (A) Negative ASSESSMENT/PLAN (expressed as patient instructions): 1. Influenza B POC Influenza A/B, Molecular oseltamivir (Tamiflu) 75 MG capsule pyrilamine-dextromethorphan ([place] DM) 7.5-7.5 mg/5 mL Liqd ipratropium (ATROVENT) 0.03 % nasal spray No follow-ups on file. ADDITIONAL CLINICAL COMMENTS Influenza B positive. Patient recommended rest/fluids and tylenol along with prescribed medications. Discussed over the counter medications for symptomatic management and side effects of medications.Recommended taking all medications with food and to stop medications if they develop any signs of an allergic reaction. Educated patient and/or guardian about signs and symptoms that would warrant further immediate evaluation. Recommended that they should return to urgent care or make an appointment with their family physician if symptoms persist or go to the ED immediately if they change or get acutely worse. Recommended follow up within the next week with their PCP or to get established with a PCP soon in order to follow up appropriately. ORDERS PLACED THIS VISIT Orders Placed This Encounter Procedures POC Influenza A/B, Molecular MEDICATION LIST AT END OF VISIT Current Outpatient Medications Medication Sig Dispense Refill levonorgestrel (MIRENA) 20 mcg/24 hr (5 years) IUD 1 each by Intrauterine route . acetaminophen (TYLENOL) 500 MG tablet Take 500 mg by mouth every 6 (six) hours as needed for pain . albuterol 90 mcg/actuation inhaler Inhale 2 (two) puffs every 6 (six) hours as needed for wheezing . (Patient not taking: Reported on 10/18/2019 .) 1 Inhaler 0 diphenhydrAMINE (BENADRYL) 50 MG capsule Take 50 mg by mouth every 6 (six) hours as needed for itching . DM/PE/acetaminophen/doxylamine (VICKS DAYQUIL-NYQUIL ORAL) Take by mouth . ipratropium (ATROVENT) 0.03 % nasal spray Instill 2 (two) sprays into each nostril every 12 (twelve) hours . 30 mL 0 methylPREDNISolone (MEDROL DOSEPACK) 4 mg tablet follow package directions . (Patient not taking: Reported on 10/18/2019 .) 21 tablet 0 mupirocin (BACTROBAN) 2 % ointment Apply topically 3 (three) times a day . (Patient not taking: Reported on 10/18/2019 .) 22 g 0 oseltamivir (Tamiflu) 75 MG capsule Take 1 (one) capsule (75 mg total) by mouth 2 (two) times a dayfor 5 days . 10 capsule 0 pyrilamine-dextromethorphan (Bon Wier DM) 7.5-7.5 mg/5 mL Liqd Take 10 mL by mouth 4 (four) times a day as needed (cough) . 200 mL 0 silver sulfADIAZINE (SILVADENE) 1 % cream Apply thin film to left posterior shoulder region and L side of neck daily x 7 days . (Patient not taking: Reported on 10/18/2019 .) 50 g 1 topiramate (TOPAMAX) 25 MG tablet Take 1 (one) tablet (25 mg total) by mouth nightly . 30 tablet 0 No current facility-administered medications for this visit. documented in this encounter* Gloria Fatima PA-C - 12/01/2019 2:41 PM EST Subjective: Patient ID: Edgar Ortiz is a 24 y.o. female. Chief Complaint: Cough 24 yo female co cough X 1 month. She was seen for Influenza B, 10/18/2019. Her symptoms went away except the cough. No fever. She has a runny nose & congestion. Past Medical History: Diagnosis Date Aortic stenosis Bicuspid aortic valve with stenosis and regurgitation Migraine Von Willebrand disease (HCC) Past Surgical History: Procedure Laterality Date FINGER SURGERY right fourth digit Family History Problem Relation Age of Onset Heart defect Mother Diabetes Father Hypertension Father Heart defect Sister Cancer Maternal Grandmother Cancer Paternal Grandmother Review of Systems Constitutional: Negative. HENT: Positive for postnasal drip, rhinorrhea and sore throat. Eyes: Negative. Respiratory: Positive for cough. Cardiovascular: Negative. Gastrointestinal: Negative. Genitourinary: Negative. Musculoskeletal: Negative. Skin: Negative. Neurological: Negative. Objective: BP 129/85 Pulse 76 Temp 97 F (36.1 C) (Tympanic) Resp 16 Wt 100.2 kg (221 lb) SpO2 97% BMI 40.16 kg/m Physical Exam Vitals signs and nursing note reviewed. Constitutional: Appearance: She is well-developed. She is obese. She is not ill-appearing or toxic-appearing. HENT: Head: Normocephalic and atraumatic. Right Ear: External ear normal. Left Ear: External ear normal. Nose: Nose normal. Eyes: Conjunctiva/sclera: Conjunctivae normal. Pupils: Pupils are equal, round, and reactive to light. Neck: Musculoskeletal: Normal range of motion and neck supple. Cardiovascular: Rate and Rhythm: Normal rate and regular rhythm. Heart sounds: Murmur present. Pulmonary: Effort: Pulmonary effort is normal. Breath sounds: Normal breath sounds. Musculoskeletal: Normal range of motion. Skin: General: Skin is warm and dry. Neurological: Mental Status: She is alert and oriented to person, place, and time. FINDINGS: Normal heart and mediastinum. Question of slight bronchial thickening or interstitial opacity in the lingula. No consolidation. No pleural effusion or pneumothorax. IMPRESSION: Evidence of mild bronchitis or atypical infection in the lingula. Assessment: Lower respiratory tract infection Plan: Rx doxycycline, albuterol inhaler. Follow up with PCP in 7-10 days. I estimate there is LOW risk for ACUTE CORONARY SYNDROME, PULMONARY EMBOLISM, PNEUMONIA REQUIRING ADMISSION, AIRWAY COMPROMISE, SEPSIS OR MENINGITIS thus I consider the discharge disposition reasonable. Edgar Balta and I have discussed the diagnosis and risks, and we agree with discharging home with close follow-up. We also discussed going to the Emergency Department immediately if new or worsening symptoms occur. We have discussed the symptoms which are most concerning that necessitate immediate follow up. documented in this encounter* Bertha Merchant DO - 01/21/2020 2:30 PM EDT 3 attempted calls for COVID concern f/u. Removing from NOT tested tracking list. documented in this encounter* Arielle Guerrero PA-C - 03/23/2020 8:48 PM EDT PATIENT NAME: Edgar Ortiz [facility] [address] [place] [address] [place] [address] : 1995 DATE OF VISIT: 03/23/2020 #: [id number] PROVIDER: Arielle Guerrero PA-C Chief Complaint Patient presents with Cough Treated for sinus infection 3 wks ago at different urgent care. Continued cough. Tested neg Covid. SUBJECTIVE 24 y.o. female presents Cough (Treated for sinus infection 3 wks ago at different urgent care. Continued cough. Tested neg Covid. ) Cough This is a new problem. The current episode started 1 to 4 weeks ago. The problem has been unchanged. The problem occurs hourly. The cough is productive of sputum. Associated symptoms include postnasal drip. Pertinent negatives include no chest pain, chills, ear congestion, ear pain, fever, headaches, hemoptysis, myalgias, nasal congestion, rash, rhinorrhea, sore throat, shortness of breath or wheezing. She has tried a beta-agonist inhaler and OTC cough suppressant (Round of antibiotics around 3weeks ago, flonase) for the symptoms. The treatment provided mild relief. Her past medical history is significant for environmental allergies. There is no history of asthma or COPD. MEDICAL ISSUES Past Medical History: Diagnosis Date Aortic stenosis Bicuspid aortic valve with stenosis and regurgitation Migraine Von Willebrand disease (HCC) Patient Active Problem List Diagnosis Bicuspid aortic valve Von Willebrand disease (HCC) Migraine Obesity SOCIAL HISTORY Social History Socioeconomic History Marital status: Single Spouse name: Not on file Number of children: Not on file Years of education: Not on file Highest education level: Not on file Occupational History Not on file Social Needs Financial resource strain: Not on file Food insecurity Worry: Not on file Inability: Not on file Transportation needs Medical: Not on file Non-medical: Not on file Tobacco Use Smoking status: Never Smoker Smokeless tobacco: Never Used Substance and Sexual Activity Alcohol use: No Drug use: No Sexual activity: Not on file Lifestyle Physical activity Days per week: Not on file Minutes per session: Not on file Stress: Not on file Relationships Social connections Talks on phone: Not on file Gets together: Not on file Attends confucianism service: Not on file Active member of club or organization: Not on file Attends meetings of clubs or organizations: Not on file Relationship status: Not on file Other Topics Concern Not on file Social History Narrative Lives with boyfriend. Attends [employer] and studying psychology. FAMILY HISTORY Family History Problem Relation Age of Onset Heart defect Mother Diabetes Father Hypertension Father Heart defect Sister Cancer Maternal Grandmother Cancer Paternal Grandmother REVIEW OF SYSTEMS Review of Systems Constitutional: Negative for appetite change, chills, fatigue and fever. HENT: Positive for postnasal drip. Negative for congestion, ear discharge, ear pain, rhinorrhea, sinus pressure, sinus pain, sneezing and sore throat. Respiratory: Positive for cough. Negative for hemoptysis, chest tightness, shortness of breath and wheezing. Cardiovascular: Negative for chest pain, palpitations and leg swelling. Gastrointestinal: Negative for abdominal pain, nausea and vomiting. Musculoskeletal: Negative for arthralgias and myalgias. Skin: Negative for rash. Allergic/Immunologic: Positive for environmental allergies. Neurological: Negative for dizziness, light-headedness and headaches. Psychiatric/Behavioral: Negative for confusion. MEDICATIONS PRIOR TO VISIT Current Outpatient Medications on File Prior to Visit Medication Sig Dispense Refill levonorgestrel (MIRENA) 20 mcg/24 hr (5 years) IUD 1 each by Intrauterine route . acetaminophen (TYLENOL) 500 MG tablet Take 500 mg by mouth every 6 (six) hours as needed for pain . albuterol 90 mcg/actuation inhaler 2 puffs qid prn cough/wheeze . (Patient not taking: Reported on 03/23/2020 .) 1 Inhaler 0 diphenhydrAMINE (BENADRYL) 50 MG capsule Take 50 mg by mouth every 6 (six) hours as needed for itching . DM/PE/acetaminophen/doxylamine (VICKS DAYQUIL-NYQUIL ORAL) Take by mouth . ipratropium (ATROVENT) 0.03 % nasal spray Instill 2 (two) sprays into each nostril every 12 (twelve) hours . (Patient not taking: Reported on 03/23/2020 .) 30 mL 0 mupirocin (BACTROBAN) 2 % ointment Apply topically 3 (three) times a day . (Patient not taking: Reported on 03/23/2020 .) 22 g 0 pyrilamine-dextromethorphan (Bon Wier DM) 7.5-7.5 mg/5 mL Liqd Take 10 mL by mouth 4 (four) times a day as needed (cough) . (Patient not taking: Reported on 03/23/2020 .) 200 mL 0 silver sulfADIAZINE (SILVADENE) 1 % cream Apply thin film to left posterior shoulder region and L side of neck daily x 7 days . (Patient not taking: Reported on 03/23/2020 .) 50 g 1 topiramate (TOPAMAX) 25 MG tablet Take 1 (one) tablet (25 mg total) by mouth nightly . 30 tablet 0 [DISCONTINUED] methylPREDNISolone (MEDROL DOSEPACK) 4 mg tablet follow package directions . (Patient not taking: Reported on 03/23/2020 .) 21 tablet 0 No current facility-administered medications on file prior to visit. ALLERGIES/INTOLERANCES Allergies Allergen Reactions Ibuprofen Bruising t/o the body OBJECTIVE BP 116/78 Pulse 80 Temp 98 F (36.7 C) Resp 16 Ht 5' 2 Wt 101.2 kg (223 lb) SpO2 98% No BMI 40.79 kg/m Physical Exam Constitutional: She is oriented to person, place, and time. She appears well- developed and well-nourished. She is cooperative. HENT: Head: Normocephalic and atraumatic. Right Ear: Tympanic membrane, external ear and ear canal normal. Left Ear: Tympanic membrane, external ear and ear canal normal. Nose: No mucosal edema or rhinorrhea. Right sinus exhibits no maxillary sinus tenderness and no frontal sinus tenderness. Left sinus exhibits no maxillary sinus tenderness and no frontal sinus tenderness. Mouth/Throat: Uvula is midline. Posterior oropharyngeal erythema present. No oropharyngeal exudate,posterior oropharyngeal edema or tonsillar abscesses. PND Neck: Normal range of motion. Cardiovascular: Regular rhythm and normal heart sounds. Pulmonary/Chest: Effort normal and breath sounds normal. Musculoskeletal: Normal range of motion. Neurological: She is alert and oriented to person, place, and time. Skin: No rash noted. Psychiatric: She has a normal mood and affect. Her speech is normal and behavior is normal. Judgment and thought content normal. PROCEDURE Procedures Results No results found for this or any previous visit (from the past 168 hour(s)). ASSESSMENT/PLAN (expressed as patient instructions): 1. Post-nasal drip methylPREDNISolone (MEDROL DOSEPACK) 4 mg tablet cetirizine (ZYRTEC) 10 MG tablet 2. Cough No follow-ups on file. ADDITIONAL CLINICAL COMMENTS Patient with cough for the past 3 weeks. Was initially treated for sinusitis with antibiotics, flonase, mucinex, and albuterol without relief. COVID testing was negative. Sinus symptoms have resolvedexcept patient has continued post nasal drip and cough. Denies recent fever/chills, shortness of breath, or COVID exposure. Likely related to seasonal allergies. Will give medrol pack and start dailyzyrtec. Discussed over the counter medications for symptomatic management and side effects of medications. Recommended taking all medications with food and to stop medications if they develop any signs of anallergic reaction. Educated patient and/or guardian about signs and symptoms that would warrant further immediate evaluation. Recommended that they should return to urgent care or make an appointment with their family physician if symptoms persist or go to the ED immediately if they change or get acutely worse. Recommended follow up within the next week with their PCP or to get established with a PCP soon in order to follow up appropriately. ORDERS PLACED THIS VISIT No orders of the defined types were placed in this encounter. MEDICATION LIST AT END OF VISIT Current Outpatient Medications Medication Sig Dispense Refill levonorgestrel (MIRENA) 20 mcg/24 hr (5 years) IUD 1 each by Intrauterine route . acetaminophen (TYLENOL) 500 MG tablet Take 500 mg by mouth every 6 (six) hours as needed for pain . albuterol 90 mcg/actuation inhaler 2 puffs qid prn cough/wheeze . (Patient not taking: Reported on 03/23/2020 .) 1 Inhaler 0 cetirizine (ZYRTEC) 10 MG tablet Take 1 (one) tablet (10 mg total) by mouth daily . 30 tablet 0 diphenhydrAMINE (BENADRYL) 50 MG capsule Take 50 mg by mouth every 6 (six) hours as needed for itching . DM/PE/acetaminophen/doxylamine (VICKS DAYQUIL-NYQUIL ORAL) Take by mouth . ipratropium (ATROVENT) 0.03 % nasal spray Instill 2 (two) sprays into each nostril every 12 (twelve) hours . (Patient not taking: Reported on 03/23/2020 .) 30 mL 0 methylPREDNISolone (MEDROL DOSEPACK) 4 mg tablet Take as directed. . 21 tablet 0 mupirocin (BACTROBAN) 2 % ointment Apply topically 3 (three) times a day . (Patient not taking: Reported on 03/23/2020 .) 22 g 0 pyrilamine-dextromethorphan (Bon Wier DM) 7.5-7.5 mg/5 mL Liqd Take 10 mL by mouth 4 (four) times a day as needed (cough) . (Patient not taking: Reported on 03/23/2020 .) 200 mL 0 silver sulfADIAZINE (SILVADENE) 1 % cream Apply thin film to left posterior shoulder region and L side of neck daily x 7 days . (Patient not taking: Reported on 03/23/2020 .) 50 g 1 topiramate (TOPAMAX) 25 MG tablet Take 1 (one) tablet (25 mg total) by mouth nightly . 30 tablet 0 No current facility-administered medications for this visit. documented in this encounter* Veronica Stephen DO - 09/30/2020 1:00 PM EST Patient Name: [facility] Location: [place] [address] Date Of : Date Of Visit: 1995 09/30/2020 MRN# Provider: [id number] Veronica Stephen DO Chief Complaint Patient presents with Rash near mouth, itchy, denies pain x 2 weeks Assessment & Plan 1. Impetigo Return if symptoms worsen or fail to improve. Medical Decision Making Pt presenting with rash c/w impetigo. Treated with 5 days of mupirocin. Return precautions given. Additional Clinical Comments Discussed over the counter medications for symptomatic management and side effects of medications. Recommended taking all medications with food and to stop medications if they develop any signs of anallergic reaction. Educated patient and/or guardian about signs and symptoms that would warrant further immediate evaluation. Recommended that they should return to urgent care, make an appointment with their family physician, or go to the emergency room if symptoms persist or get acutely worse. Recommended follow upwithin the next week with their PCP or to get established with a PCP soon in order to follow up appropriately. [facility] COVID-19 Mask Status: Does the patient have classic COVID-19 symptoms? No, the patient does not have COVID-19 symptoms, the patient WAS wearing a mask during the visit and I (the provider) WAS wearing a mask during the visit. Subjective 24 y.o. female presents with Rash (near mouth, itchy, denies pain x 2 weeks) HPI Rash on corner of mouth Going on for two weeks Tried abreva on it, somewhat improved Then last night put on make up and got worse Has had impetigo in the past that has resolved with mupirocin Review Of Systems Review of Systems Constitutional: Negative for chills and fever. HENT: Negative for hearing loss and sore throat. Eyes: Negative for visual disturbance. Respiratory: Negative for cough and shortness of breath. Cardiovascular: Negative for chest pain, palpitations and leg swelling. Gastrointestinal: Negative for abdominal pain, constipation, diarrhea and nausea. Genitourinary: Negative for dysuria. Musculoskeletal: Negative for joint swelling. Neurological: Negative for dizziness, light-headedness and numbness. Medical History Past Medical History: Diagnosis Date Aortic stenosis Bicuspid aortic valve with stenosis and regurgitation Migraine Von Willebrand disease (HCC) Past Surgical History: Procedure Laterality Date FINGER SURGERY right fourth digit Patient Active Problem List Diagnosis Bicuspid aortic valve Von Willebrand disease (HCC) Migraine Obesity Social History Social History Tobacco Use Smoking status: Never Smoker Smokeless tobacco: Never Used Substance Use Topics Alcohol use: No Drug use: No Family History Family History Problem Relation Age of Onset Heart defect Mother Diabetes Father Hypertension Father Heart defect Sister Cancer Maternal Grandmother Cancer Paternal Grandmother Objective Physical Exam BP 131/84 (BP Location: Right arm, Patient Position: Sitting, BP Cuff Size: Adult) Pulse 72 Resp 16 Ht 5' 2 Wt 94.7 kg (208 lb 12.8 oz) SpO2 98% BMI 38.19 kg/m Vision/Hearing Exam:No exam data present Physical Exam Constitutional: Appearance: She is well-developed. She is not ill-appearing or toxic-appearing. HENT: Head: Normocephalic. Nose: No congestion. Eyes: General: Right eye: No discharge. Left eye: No discharge. Neck: Musculoskeletal: Normal range of motion. No neck rigidity. Cardiovascular: Rate and Rhythm: Normal rate. Heart sounds: Murmur (known, chronic) present. Pulmonary: Effort: No respiratory distress. Breath sounds: No wheezing. Lymphadenopathy: Cervical: No cervical adenopathy. Skin: General: Skin is warm and dry. Findings: Erythema and rash present. Comments: Gold crusting on left side of mouth, no other lesions. See picture in chart Neurological: General: No focal deficit present. Mental Status: She is alert. Psychiatric: Mood and Affect: Mood normal. Procedure Notes Procedures Results No results found for this or any previous visit (from the past 168 hour(s)). No orders to display Orders Placed This Visit No orders of the defined types were placed in this encounter. Medication List At End Of Visit Current Outpatient Medications Medication Sig Dispense Refill acetaminophen (TYLENOL) 500 MG tablet Take 500 mg by mouth every 6 (six) hours as needed for pain . levonorgestrel (MIRENA) 20 mcg/24 hr (5 years) IUD 1 each by Intrauterine route . cetirizine (ZYRTEC) 10 MG tablet Take 1 (one) tablet (10 mg total) by mouth daily . 30 tablet 0 diphenhydrAMINE (BENADRYL) 50 MG capsule Take 50 mg by mouth every 6 (six) hours as needed for itching . DM/PE/acetaminophen/doxylamine (VICKS DAYQUIL-NYQUIL ORAL) Take by mouth . mupirocin (BACTROBAN) 2 % cream Apply topically 3 (three) times a day Apply to corner of mouth for 5 days . 30 g 0 No current facility-administered medications for this visit. Patient Instructions Impetigo: Care Instructions Your Care Instructions Impetigo (say [id number] ) is a skin infection caused by bacteria. It causes blisters that breakand become oozing, yellow, crusty sores. Impetigo can be anywhere on the body. Scratching the sores may spread the infection to other parts of the body. You can also spread it to others through close contact or when you share towels, clothing, and other items. Prescription antibiotic ointment or pills can usually cure impetigo. (After a day of antibiotics, the infection should not spread.) Follow-up care is a olivas part of your treatment and safety. Be sure to make and go to all appointments, and call your doctor if you are having problems. It's also a good idea to know your test resultsand keep a list of the medicines you take. How can you care for yourself at home? Apply antibiotic ointment exactly as instructed. If your doctor prescribed antibiotic pills, take them as directed. Do not stop using them just because you feel better. You need to take the full course of antibiotics. Gently wash the sores with soap and water each day. If crusts form, your doctor may advise you to soften or remove the crusts. You can do this by soaking them in warm water and patting them dry. Thiscan help the cream or ointment treat impetigo. After you touch the area, wash your hands with soap and water. Or you can use an alcohol-based handsanitizer. Don't share items such as towels, sheets, and clothing until the infection is gone. Wash anything that may have touched the infected area. Try to avoid scratching the area. When should you call for help? Call your doctor now or seek immediate medical care if: You have symptoms of a worse infection, such as: ? Increased pain, swelling, warmth, or redness. ? Red streaks leading from the area. ? Pus draining from the area. ? A fever. Impetigo gets worse or spreads to other areas. Watch closely for changes in your health, and be sure to contact your doctor if: You do not get better as expected. Where can you learn more? Log into your personal health record on [email or web address].ChatterPlug and enter S909 in the Education box to learn more about Impetigo: Care Instructions. Current as of: March 08, 2020 Content Version: 12.7 [email or web address]. Care instructions adapted under license by your healthcare professional. If you have questions about a medical condition or this instruction, always ask your healthcare professional. [employer] disclaims any warranty or liability for your use of this information. documented in this encounter Assessments Diagnosis Sunburn- Primary Diagnosis Bronchitis- Primary Bronchitis, not specified as acute or chronic Dermatitis Contact dermatitis and other eczema, due to unspecified cause Diagnosis Influenza B Influenza with other respiratory manifestations Diagnosis Lower respiratory tract infection Other diseases of respiratory system, not elsewhere classified Diagnosis Bronchitis Bronchitis, not specified as acute or chronic Diagnosis Post-nasal drip Postnasal drip Cough Diagnosis Acute rhinitis Acute nasopharyngitis (common cold) Diagnosis Impetigo- Primary Advance Directives No Advanced Directives Records FoundDocuments on File Type Date Recorded Patient [employer] Expl anation Advance Directives and Living Will Documents on File Type Date Recorded Patient [employer] Expl anation Advance Directives and Living Will Power of Mortician Helper Documents on File Type Date Recorded Patient [employer] Expl anation ACP-Advance Directive ACP-Power of Mortician Helper Summary Purpose Family History No Family History Records FoundNo Family History Records FoundNo Family History Records FoundNo Family History Records FoundNo Family History Records FoundNo Family History Records Found Discharge Instructions * Instructions* Shannan Solitario MD - 08/11/2020 Tylenol and/or Motrin for any fevers or discomfort. Use Afrin daily as directed for 3 days. [id number] Claritin or Zyrtec daily while symptoms persist. Salt water gargles and/or nasal saline spray several times a day as desired for comfort. Follow-up with primary care physician within 3 to 5 days if symptoms have not resolved. Seek medical attention prior to this for any acute concerns documented in this encounter Reason for Referral Specialty Diagnoses / Procedures Referred By Jhonny langley Referred To Contact Radiology Diagnoses Dyspareunia, female Abnormal uterine bleeding Procedures US PELVIS COMPLETE Jung Serrato MD [address] [place] [address] Referral ID Status Reason Start Date Expiration Date Visits Re quested Visits Authorized [id number] Open 05/27/2024 05/27/2025 1 1 Additional Source Comments Reason for Visit (unrecogniz ed section and content) Reason Comments Sunburn on Friday, on her chest, arms and neck. She has used aloe and cold showers Reason Comments URI Coughing, SOB, with associated chest and mid back pain. Sx for last 2 days. Please review chart for cardiac hx. Reason Comments Emesis body aches, fever, d ry cough, Reason Comments Sinusitis cough fits; gagging and vomiting from cough; nasal akosua; runny nose; x1 month Reason Comments Cough Treated for sinus in fection 3 wks ago at different urgent care. Continued cough. Tested neg Covid. Reason Comments Cough onset 2 days Nasal Congestion states loss of smell Reason Comments Rash near mouth, itchy, d enies pain x 2 weeks Reason Comments Vaginal Itching Pt states she has patel d vaginal itching and burning for a couple days Specialty Diagnoses / Procedures Referred By Jhonny langley Referred To Contact Radiology Diagnoses Dyspareunia, female Abnormal uterine bleeding Procedures US PELVIS COMPLETE Jung Serrato MD [address] [place] [address] Referral ID Status Reason Start Date Expiration Date Visits Re quested Visits Authorized [id number] Open 05/27/2024 05/27/2025 1 1 Addendum Note - Bertha Irving PA-C - 07/06/2019 2:02 PM EDT Miscellaneous Notes (unrecog nized section and content) Addended by: BERTHA IRVING on: 07/06/2019 02:02 PM Modules accepted: Orders documented in this encounter INFORMATION SOURCE (unrecogn ized section and content) DATE CREATED AUTHOR 07/19/2019 [facility] DATE CREATED AUTHOR AUTHOR'S ORGANIZ ATION 02/25/2021 [facility] DATE CREATED AUTHOR AUTHOR'S ORGANIZ ATION 01/04/[address] [facility] DATE CREATED AUTHOR AUTHOR'S ORGANIZ ATION 02/10/2024 [facility] DATE CREATED AUTHOR AUTHOR'S ORGANIZ ATION 06/04/2024 [facility] DATE CREATED AUTHOR AUTHOR'S ORGANIZ ATION 06/12/2024 [facility] Ordered Prescriptions (unrec ognized section and content) Prescription Sig Dispensed Refills Start Date End Da te metroNIDAZOLE (FLAGYL) 500 MG tablet Take 1 tablet by mouth 3 times daily for 10 days 30 tablet 0 01/19/2023 01/29/2023 fluconazole (DIFLUCAN) 150 MG tablet Take 1 tablet by mouth daily for 3 days 3 tablet 0 01/19/2023 01/22/2023 Scheduled Active and Recently Administ ered Medications (unrecognized section and content) Medication Order 01/17/2023 01/18/2023 01/19/2023 fluconazole (DIFLUCAN) tablet 200 mg (COMPLETED) 200 mg, Oral, ONCE, 1 dose, On 01/19/23 at 2330, Antimicrobial Indications: Other, Other Abx Indication: yeast infection 2331 (Given - Provid er: Dianelys Mccormick RN) metroNIDAZOLE (FLAGYL) tablet 500 mg (COMPLETED) 500 mg, Oral, ONCE, 1 dose, On 01/19/23 at 2330, Antimicrobial Indications: Other, Other Abx Indication: Bacterial vaginosis 2332 (Given - Provid er: Dianelys Mccormick RN) Care Teams (unrecognized sec tion and content) Tape Control Skin Or Spar Mill Operator Relationship Specialty Start Date End Date Joi Lewis PCP - General 01/23/16 Tape Control Skin Or Spar Mill Operator Relationship Specialty Start Date End Date Joi Lewis MD PCP - General 01/23/16 Tape Control Skin Or Spar Mill Operator Relationship Specialty Start Date End Date Joi Lewis MD PCP - General 01/23/16 FOR RECORDS PERTAINING TO PATIENTS WHO ARE OR HAVE BEEN ENROLLED IN A CHEMICAL DEPENDENCY/SUBSTANCEABUSE PROGRAM, SOME INFORMATION MAY BE OMITTED. This clinical summary was aggregated from multiple sources. Caution should be exercised in using it in the provision of clinical care. This summary normalizes information from multiple sources, and as a consequence, information in this document may materially change the coding, format and clinical context of patient data. In addition, data may be omitted in some cases. CLINICAL DECISIONS SHOULD BE BASED ON THE PRIMARY CLINICAL RECORDS. [facility]. provides no warranty or guarantee of the accuracy or completeness of information in this document.
== END 2024-07-12 23:59 | disposition home or self-care (01) ==
LOC: HEMC 07:17
PROVIDERS: PCP Internal Medicine; Visit Provider Internal Medicine Hematology & Oncology
DX: D68.029 Von Willebrand disease, type 2, unspecified (principal)
CPT/HCPCS: G0463

== ENCOUNTER 2024-12-10 10:44 | Outpatient (OUT) | payer MEDICAID, SELFPAY ==
--- OUTSIDE RECORDS SUMMARY | 2024-12-10 11:05 | XMS_ITS | CCD ---
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 Name Role Phone Andrea Luciano Primary Care Provi zoltan ANDREA LUCIANO Attending Un available ANDREA LUCIANO Primary Care Un available Joi Lewis Primary Care Provider Unavailabl e ANDREA LUCIANO Primary Care Un available VERONICA STEPHEN Attending Unavailable ANDREA LUCIANO Primary Care Un available SU WILLIAMSON Attending Unavailable ANDREA LUCIANO Primary Care Un available ARIELLE GUERRERO Attending Unavailable Joi Lewis Primary Care Provider JOI LEWIS Primary Care Unavailable JOI LEWIS Primary Care Unavailable PARUL GRAVES Referring Unavailable JOI LEWIS Primary Care Unavailable PARUL GRAVES Referring Unavailable Joi Lewis MD Primary Care Provider [phone] JUNG SERRATO Attending Unavailable JUNG SERRATO Attending [...] Primary Care Unavailable LILLIAN LEIJA Attending Unavailable Joi Lewis MD Primary Care Provider Allergies Allergy Classification Reported Allergen(s) Allergy Type Date of Onset Reaction(s) Facility NSAIDs (2 sources) Ibuprofen; Translations: [IBUPROFEN] Drug Allergy 09-16-2015 [facility] (16 sources) Ibuprofen Drug Allergy 09-16-2015 [facility] (2 sources) Non-steroidal anti-inflammator y agent Drug Allergy 05-11-2024 [facility] Medications Current Medications Medication Drug Class(es) Dates [...] 20 capsule 0 12/01/2019 12/11/2019 Active levonorgestrel 0.234662 mg/hr intrauterine system (9 sources) Progestin, Progestin-containi [...] cream (7 sources) Sulfonamide Antibacterial Start: End: silver sulfADIAZINE (SILVADENE) 1 % cream Indications: [...] 1.5 mg/ml oral solution (6 sources) Uncompetitive F-ladukz-E-aspartate Receptor Antagonist, Sigma-1 Agonist Start: 10-18-2019 End: 09-30-2020 take 10 mL by mouth four times daily as needed for cough pyrilamine-dextromethorphan (Madison DM) 7.5-7.5 mg/5 mL Liqd Indications: Influenza [...] syndrome] Onset: 05-27-2024 Chronic Other endocrine disorders (1 source) Polycystic ovary syndrome; Translations: [Polycystic ovarian syndrome] 06-02-2024 Chronic Other endocrine disorders (2 sources) Endocrine disorder, unspecified; Translations: [Endocrine disorder, unspecified] Onset: 05-27-2024 Episodic Other female genital disorders (2 sources) Pain in female genitalia on intercourse; Translations: [Unspecified dyspareunia] 05-28-2024 Chronic Other female genital disorders (2 sources) Abnormal uterine bleeding; Translations: [Abnormal uterine and [...] conditions (not mental disorders or infectious disease) (4 sources) Other specified abnormal findings of blood chemistry; Translations: [Increased prolactin level] Onset: 06-09-2024 Episodic Other skin disorders (1 source) Inflammatory dermatosis; Translations: [Dermatitis] Episodic Other upper respiratory disease (1 source) Rhinitis; Translations: [Acute rhinitis] Chronic Other upper respiratory infections (1 source) Posterior rhinorrhea; Translations: [Post-nasal drip] Episodic Unclassified (2 sources) Test; Translations: [ Test] Onset: 02-15-2024 Past or Other Problems Problem Classification Problem Date Documented Date Episodic/Chronic Abdominal pain (2 sources) Pelvic and perineal pain; Translations: [Pain in female pelvis] Onset: 08-18-2023 06-02-2024 Episodic Immunizations and screening for infectious disease (1 source) Encounter for screening for infections with a predominantly sexual mode of transmission; Translations: [Encounter for screening for infections with a predominantly sexual mode of transmission] Onset: 2023 Episodic Other endocrine disorders (1 source) Disorder of endocrine system; Translations: [Endocrine disorder, unspecified] 06-02-2024 Episodic Ovarian cyst (3 sources) Other ovarian [...] HISTORY: Other specified abnormal findings of blood [employer] PROVIDED HISTORY: STAT Creatinine as needed:->No FINDINGS: [...] Tristen Valdes MD 06/10/24 Final result Normal [facility] DHEAon 06-01-2024 DHEA 8.631 ng/mL High 1.330-7.780 [facility] Comment on above: Result Comment: (NOT E) INTERPRETIVE INFORMATION: Dehydroepiandrosterone, Females 18 years and older: Postmenopausal: 0.60-5.73 ng/mL REFERENCE INTERVAL: Dehydroepiandrosterone by TMS Access complete set of age- and/or gender-specific reference intervals for this test in the [facility] Test Directory ([place]). This test was developed and its performance characteristics determined by [facility]. It has not been cleared or approved by the [place] Food and Drug Administration. This test was performed in a CLIA certified laboratory and is intended for clinical purposes. Performed By: [facility] [address] [place] [id number] Scientific Aide: John Maradiaga MD, PhD CLIA Number: [id number] Performed By: #### F SH, DHES, FT4, LH, GLYHGB, PROL ####[address] [address] lab Director: Eliecer Barreto MD#### CDP, [facility] ####[facility] [place] [address] lab Director: Patricio Kelley MD#### ADHEA ####[facility] [address] [place] [address] lab Director: Aguilar Ballard MD US PELVIS COMPLETEon [...] Adonay Frank MD 05/29/24 Final result Normal [facility] US Pelvison 05-29-2024 1. Myometrial heterogeneity [...] Normal transabdominal sonographic appearance of the ovaries. [facility] US PelvisOrdered By: Adonay Frank on 05-29-2024 [facility] Work Phone: US Pelvison 05-28-2024 Radiology Study observation (narrative) [facility] CBC with Auto Differentialon 05-27-2024 Basophils (Bld) [#/Vol] 0.04 10*3/uL [facility] Basophils/100 WBC (Bld) 0 % 0 - 2 % [facility] Eosinophils (Bld) [#/Vol] 0.30 10*3/uL [facility] Eosinophils/100 WBC (Bld) 3 % 1 - 4 % [facility] Erythrocyte distribution width (RBC) [Ratio] 12.7 % 11.8 - 14.4 % [facility] Hematocrit (Bld) [Volume fraction] 42.2 % 36.3 - 47.1 % [facility] Hemoglobin (Bld) [Mass/Vol] 14.5 g/dL 11.9 - 15.1 g/dL [facility] Immature granulocytes (Bld) [#/Vol] 0.04 10*3/uL [facility] Immature granulocytes/100 WBC (Bld) 0 % 0 [facility] Interpretation and review of laboratory results Abnormal [facility] Lymphocytes/100 WBC (Bld) 23 % Low 24 - 43 % [facility] Lymphocytes/100 WBC (Bld) 2.20 % [facility] MCH (RBC) [Entitic mass] 27.6 pg 25.2 - 33.5 pg [facility] MCHC (RBC) [Mass/Vol] 34.4 g/dL 28.4 - 34.8 g/dL [facility] MCV (RBC) [Entitic vol] 80.4 fL Low 82.6 - 102.9 fL [facility] Monocytes/100 WBC (Bld) 6 % 3 - 12 % [facility] Monocytes/100 WBC (Bld) 0.54 % [facility] Neutrophils/100 WBC (Bld) 68 % High 36 - 65 % [facility] Nucleated RBC/100 WBC (Bld) [Ratio] 0.0 % 0.0 per 100 WBC [facility] Platelet mean volume (Bld) [Entitic vol] 11.5 fL 8.1 - 13.5 fL [facility] Platelets (Bld) [#/Vol] 246 10*3/uL [facility] RBC (Bld) [#/Vol] 5.25 10*6/uL High 3.95 - 5.1 1 m/uL [facility] Segmented neutrophils/100 WBC (Bld) 6.39 % [facility] WBC other (Bld) [#/Vol] 9.5 [facility] CBC with Diffon 05-27-2024 Abs. Basophil 0.04 k/uL Normal 0.00-0.20 [facility] Comment on above: Performed By: #### S WCGP #### [address] [address] Truck Operator: Eliecer Barreto MD Abs.Imm.Granulocyt e 0.04 k/uL Normal 0.00-0.30 [facility] Comment on above: Performed By: #### S WCGP #### [address] [address] Truck Operator: Eliecer Barreto MD Abs.Neutrophil (Seg) 6.39 k/uL Normal 1.50-8.10 [facility] Comment on above: Performed By: #### S WCGP #### [address] [address] Truck Operator: Eliecer Barreto MD Basophils/100 WBC (Bld) 0 % Normal 0-2 [facility] Comment on above: Performed By: #### S WCGP #### [address] [address] Truck Operator: Eliecer Barreto MD Eosinophils (Bld) [#/Vol] 0.30 10*3/uL Normal 0.00-0.44 [facility] Comment on above: Performed By: #### S WCGP #### [address] [address] Truck Operator: Eliecer Barreto MD Eosinophils/100 WBC (Bld) 3 % Normal 1-4 [facility] Comment on above: Performed By: #### S WCGP #### [address] [address] Truck Operator: Eliecer Barreto MD Erythrocyte distribution width (RBC) [Ratio] 12.7 % Normal 11.8-14.4 [facility] Comment on above: Performed By: #### S WCGP #### [address] [address] Truck Operator: Eliecer Barreto MD Hematocrit (Bld) [Volume fraction] 42.2 % Normal 36.3-47.1 [facility] Comment on above: Performed By: #### S WCGP #### [address] [address] Truck Operator: Eliecer Barreto MD Hemoglobin (Bld) [Mass/Vol] 14.5 g/dL Normal 11.9-15.1 [facility] Comment on above: Performed By: #### S WCGP #### [address] [address] Truck Operator: Eliecer Barreto MD Immature granulocytes/100 WBC (Bld) 0 % Normal 0 [facility] Comment on above: Performed By: #### S WCGP #### [address] [address] Truck Operator: Eliecer Barreto MD Lymphocytes (Bld) [#/Vol] 2.20 10*3/uL Normal 1.10-3.70 [facility] Comment on above: Performed By: #### S WCGP #### [address] [address] Truck Operator: Eliecer Barreto MD Lymphocytes/100 WBC (Bld) 23 % Low 24-43 [facility] Comment on above: Performed By: #### S WCGP #### [address] [address] Truck Operator: Eliecer Barreto MD MCH (RBC) [Entitic mass] 27.6 pg Normal 25.2-33.5 [facility] Comment on above: Performed By: #### S WCGP #### [address] [address] Truck Operator: Eliecer Barreto MD MCHC (RBC) [Mass/Vol] 34.4 g/dL Normal 28.4-34.8 [facility] Comment on above: Performed By: #### S WCGP #### [address] [address] Truck Operator: Eliecer Barreto MD MCV (RBC) [Entitic vol] 80.4 fL Low 82.6-102.9 [facility] Comment on above: Performed By: #### S WCGP #### [address] [address] Truck Operator: Eliecer Barreto MD Monocytes (Bld) [#/Vol] 0.54 10*3/uL Normal 0.10-1.20 [facility] Comment on above: Performed By: #### S WCGP #### [address] [address] Truck Operator: Eliecer Barreto MD Monocytes/100 WBC (Bld) 6 % Normal 3-12 [facility] Comment on above: Performed By: #### S WCGP #### [address] [address] Truck Operator: Eliecer Barreto MD Neutrophil (Seg) 68 % High 36-65 [facility] Comment on above: Performed By: #### S WCGP #### [address] [address] Truck Operator: Eliecer Barreto MD NRBC Automated 0.0 per 100 WBC Normal 0.0 [facility] Comment on above: Performed By: #### S WCGP #### [address] [address] Truck Operator: Eliecer Barreto MD Platelet mean volume (Bld) [Entitic vol] 11.5 fL Normal 8.1-13.5 [facility] Comment on above: Performed By: #### S WCGP #### [address] [place] [address] Truck Operator: Eliecer Barreto MD Platelets (Bld) [#/Vol] 246 10*3/uL Normal 138-453 [facility] Comment on above: Performed By: #### S WCGP #### [facility] [address] [place] [address] Truck Operator: Eliecer Barreto MD RBC (Bld) [#/Vol] 5.25 10*6/uL High 3.95-5.11 [facility] Comment on above: Performed By: #### S WCGP #### [facility] [address] [place] [address] Truck Operator: Eliecer Barreto MD WBC (Bld) [#/Vol] 9.5 10*3/uL Normal 3.5-11.3 [facility] Comment on above: Performed By: #### S WCGP #### [facility] [address] [place] [address] Truck Operator: Eliecer Barreto MD DHEA Sulfateon 05-27-2024 DHEA Sulfate 417.0 ug/dL High 98.8-340 [facility] Comment on above: Performed By: #### F SH, DHES, FT4, LH, GLYHGB, PROL ####[facility] [address] [place] [address] Lab Director: Eliecer Barreto MD#### CDP, BHCG, TSH ####[facility] [address] [place] [address] Lab Director: Patricio Kelley MD#### ADHEA ####[address] [address] Lab Director: Aguilar Ballard MD DHEA-Sulfateon 05-27-2024 DHEA-S [Mass/Vol] 417.0 ug/dL High 98.8 - 340 ug/dL [facility] Interpretation and review of laboratory results Abnormal [facility] Follicle Stim. Hormon 2023 Follicle Stim. Horm 3.2 mIU/mL Normal [facility] Comment on above: Result Comment: Refe rence Range: Male: 1.5-12.4 Ovulating Female: Follicular Phase 3.5-12.5 Ovulation Phase 4.7-21.5 Luteal Phase 1.7-7.7 Postmenopausal Female: 25.8-134.8 Performed By: #### S WCGP #### [employer] [facility] [address] [place], [place] [id number] Truck Operator: Eliecer Barreto MD Follicle Stimulating Hormone on 05-27-2024 Follitropin Qn 3.2 m[IU]/mL mIU/mL [facility] Comment on above: Reference Range: Male: 1.5-12.4 Ovulating Female: Follicular Phase 3.5-12.5 Ovulation Phase 4.7-21.5 Luteal Phase 1.7-7.7 Postmenopausal Female: 25.8-134.8 HCG, Quanton 05-27-2024 HCG, Quant <1.0 Normal <5 [facility] Comment on above: Result Comment: Non-preg premeno <=5 Postmeno <=8 Male <=3 If HCG results do not concur with clinical observations, additional testing to confirm results is recommended. Performed By: #### S WCGP #### [employer] [address] [place] [address] Truck Operator: Eliecer Barreto MD HCG, Quantitative, on 05-27-2024 HCG.beta subunit Qn NINF [facility] Comment on above: Non-preg premeno <=5 Postmeno <=8 Male <=3 If HCG results do not concur with clinical observations, additional testing to confirm results is recommended. Hemoglobin A1Con 05-27-2024 Average glucose Estimated from glycated hemoglobin (Bld) [Mass/Vol] 97 mg/dL [facility] Comment on above: The ADA and AACC rec ommend providing the estimated average glucose result to permit better patient understanding of their HBA1c result. HbA1c (Bld) [Mass fraction] 5.0 % 4.0 - 6.0 % [facility] Glucose [Mass/Vol] 97 mg/dL Normal [facility] Comment on above: Result Comment: The ADA and AACC recommend providing the estimated average glucose result to permit better patient understanding of their HBA1c result. Performed By: #### S WCGP #### [facility] [address] [place] [address] Truck Operator: Eliecer Barreto MD HbA1c (Bld) [Mass fraction] 5.0 % Normal 4.0-6.0 [facility] Comment on above: Performed By: #### S WCGP #### [facility] [employer] [address] [place] [address] Truck Operator: Eliecer Barreto MD Luteinizing Hormoneon 2023 Interpretation and review of laboratory results Abnormal [facility] Lutropin Qn 11.0 m[IU]/mL High [facility] Comment on above: Reference Range: Male: 1.7-8.6 Ovulating Female: Follicular Phase 2.4-12.6 Ovulation Phase 14.0-95.6 Luteal Phase 1.0-11.4 Postmenopausal Female: 7.7-58.5 Luteinizing Hormone 11.0 mIU/mL High 1.7-8.6 [facility] Comment on above: Result Comment: Refe rence Range: Male: 1.7-8.6 Ovulating Female: Follicular Phase 2.4-12.6 Ovulation Phase 14.0-95.6 Luteal Phase 1.0-11.4 Postmenopausal Female: 7.7-58.5 Performed By: #### F SH, DHES, FT4, LH, GLYHGB, PROL ####[facility] [address] [place] [address] Lab Director: Eliecer Barreto MD#### CDP, BHCG, TSH ####[facility] [address] [place] , [place] [id number] Lab Director: Patricio Kelley MD#### ADHEA ####[facility] [address] [place] [address] [facility] Director: Aguilar Ballard MD No Panel Informationon 05-27 [facility] Prolactinon 05-27-2024 Interpretation and review of laboratory results Abnormal [facility] Prolactin [Mass/Vol] 37.70 ng/mL High 4.79 - 23.3 ng/mL [facility] Comment on above: The presence of macr oprolactin may cause interference in female patients with various endocrinological diseases or during . [facility] Prolactin 37.70 ng/mL High 4.79-23.3 [facility] Comment on above: Result Comment: The presence of macroprolactin may cause interference in female patients with various endocrinological diseases or during . Performed By: #### S WCGP #### [address] [address] Truck Operator: Eliecer Barreto MD T4, Freeon 05-27-2024 Free T4 [Mass/Vol] 1.5 ng/dL 0.92 - 1. 68 ng/dL [facility] TSHon 05-27-2024 TSH Qn 1.42 m[IU]/L [facility] Thyroid Stim. Horm.on 2023 Thyroid Stim. Horm. 1.42 uIU/mL Normal 0.30-5.00 [facility] Comment on above: Performed By: #### S WCGP #### [address] [address] Truck Operator: Eliecer Barreto MD Thyroxine, Freeon 05-27-2024 Thyroxine, Free 1.5 ng/dL Normal 0.92-1.68 [facility] Comment on above: Performed By: #### F SH, DHES, FT4, LH, GLYHGB, PROL ####[address] [address] Lab Director: Eliecer Barreto MD#### CDP, BHCG, TSH ####[facility] [address] [place] [address] [facility] Director: Patricio Kelley MD#### ADHEA ####[address] [address] [facility] Director: Aguilar Ballard MD NON OB TRANSVAGINALon [...] Nickolas Swenson MD 02/09/24 Final result Normal [place] Chlamydia/GC,DNA Ampon 11-11 Chlamydia Probe Negative Normal NEG [facility] Comment on above: Result Comment: CHLA MYDIA [...] nucleic acid target. Performed By: #### S WC #### [address] [place] [address] Truck Operator: Eliecer Barreto MD Gonorrhea Probe Negative Normal NEG [facility] Comment on above: Result Comment: NEIS SERIA [...] target. Performed By: #### S WCGP #### [address] [place], [place] [id number] Truck Operator: Eliecer Barreto MD T.pallidum Ab Screenon 11-11 T.pallidum Ab Screen Non-Reactive Normal NR [facility] Comment on above: Result Comment: T. pallidum antibodies are not detected. There is no serological evidence of infection with T. pallidum (early primary syphilis cannot be excluded). Retest in 2-4 weeks if syphilis is clinically suspect. Performed By: #### C EA, TREP, HIVCMB, AHCV, CA125 #### [facility] [address] [place], [place] [phone] Truck Operator: Eliecer Barreto MD US NON OB TRANSVAGINALon US NON OB TRANSVAGINAL Table formatting from the original result was not included. Yaya Rose L on 2023 3:19 PM EST UTERUS:anteverted, homogeneous echo pattern ENDO:6mm in thickness RT. OVARY:seen, complex cyst noah- 2.6cm x 2.0cm x 1.7cm LT. OVARY:seen, wnl - no cystic area seen in left adnexa on today's US Interpreted by: Nickolas Swenson MD Signed by: Nickolas Swenson MD 11/11/23 Final result Normal [place] Vaginitis DNA Probeon 2023 Catarina Negative Normal NEG [facility] Comment on above: Result Comment: for Catarina sp. Method of testing is a DNA probe intended for detection and identification of Catarina species, Gardnerella vaginalis, and Trichomonas vaginalis nucleic acid in vaginal fluid specimens from patients with symptoms of vaginitis/vaginosis. Performed By: #### V AGP #### [facility] [address] [place], [place] [id number] Truck Operator: Eliecer Barreto MD [facility] [address] [place] [address] Truck Operator: Patricio Kelley MD Gardnerella Positive Abnormal NEG [facility] Comment on above: Result Comment: for Gardnerella vaginalis Performed By: #### V AGP #### [address] [address] Truck Operator: Eliecer Barreto MD [facility] [address] [place] [address] Truck Operator: Patricio Kelley MD Trichomonas Negative Normal NEG [facility] Comment on above: Result Comment: for Trichomonas Vaginalis Performed By: #### V AGP #### [address] [address] Truck Operator: Eliecer Barreto MD [facility] [address] [place] [address] Truck Operator: Patricio Kelley MD CA 125on 2023 CA 125 10 U/mL Normal <38 [facility] Comment on above: Result Comment: The Eleanor ECLIA assay is used. Results obtained with different assay methods cannot be used interchangeably. Performed By: #### C EA, TREP, HIVCMB, AHCV, CA125 #### [address] [address] Truck Operator: Eliecer Barreto MD Carcinoembry. Antig.on 11-10 Carcinoembry. Antig. 2.5 ng/mL Normal <3.9 [facility] Comment on above: Result Comment: The Eleanor ECLIA assay is used. Results obtained with different assay methods cannot be used interchangeably. Performed By: #### C EA, TREP, HIVCMB, AHCV, CA125 #### [address] [address] Truck Operator: Eliecer Barreto MD HIV Ag/Abon 2023 HIV Ag/Ab Non-Reactive Normal NR [facility] Comment on above: Result Comment: No l aboratory evidence of HIV infection. If acute HIV infection is suspected, consider testing for HIV-1 RNA. Performed By: #### C EA, TREP, HIVCMB, AHCV, CA125 #### [address] [place] [address] Truck Operator: Eliecer Barreto MD Hep C Abon 2023 Hep C Ab Non-Reactive Normal NR [facility] Comment on above: Result Comment: The hepatitis [...] C EA, TREP, HIVCMB, AHCV, CA125 #### [address] [address] Truck Operator: Eliecer Barreto MD Vaginitis DNA Probeon 2023 Source .VAGINAL SWAB Normal [facility] Comment on above: Performed By: #### V AGP #### [address] [address] Truck Operator: Eliecer Barreto MD [facility] [address] [place] [address] Truck Operator: Patricio Kelley MD US NON OB TRANSVAGINALon NON OB TRANSVAGINAL UTERUS: Homogenous appearing anteverted uterus, WNL ENDO: measures 5 mm RT. OVARY: WNL LT. OVARY: there is a hyperechoic area lateral AND superior to ovary, suggestive of edema, or collection of blood, no blood flow into area, minimal blood flow noted in ovary No free fluid Interpreted by: Gisela Machado DO Signed by: Gisela Machado DO 08/20/23 Final result Normal [place] Basic Metabolic Profon 06-23 Anion gap [Moles/Vol] 9 mmol/L Normal - [facility] Comment on above: Performed By: #### S WCGP #### [address] [address] Truck Operator: Eliecer Barreto MD BUN/CRE Ratio 16 Normal 9-20 [facility] Comment on above: Performed By: #### S WCGP #### [facility] [place] [address] Truck Operator: Eliecer Barreto MD Calcium [Mass/Vol] 9.1 mg/dL Normal 8.6-10.4 [facility] Comment on above: Performed By: #### S WCGP #### [address] [address] Truck Operator: Eliecer Barreto MD Chloride [Moles/Vol] 105 mmol/L Normal 98-107 [facility] Comment on above: Performed By: #### S WCGP #### [address] [address] Truck Operator: Eliecer Barreto MD CO2 [Moles/Vol] 25 mmol/L Normal 20-31 [facility] Comment on above: Performed By: #### S WCGP #### [address] [address] Truck Operator: Eliecer Barreto MD Creatinine [Mass/Vol] 0.9 mg/dL Normal 0.5-0.9 [facility] Comment on above: Performed By: #### S WCGP #### [address] [address] Truck Operator: Eliecer Barreto MD GFR/1.73 sq M.predicted among non-blacks MDRD (S/P/Bld) [Vol rate/Area] mL/min/{1.73_m2} Normal >60 [facility] Comment on above: Result Comment: These [...] secretion. Performed By: #### S WCGP #### [facility] [place] [address] Truck Operator: Eliecer Barreto MD Glucose [Mass/Vol] 108 mg/dL High 70-99 [facility] Comment on above: Performed By: #### S WCGP #### [address] [address] Truck Operator: Eliecer Barreto MD Potassium [Moles/Vol] 3.8 mmol/L Normal 3.7-5.3 [facility] Comment on above: Performed By: #### S WCGP #### [address] [address] Truck Operator: Eliecer Barreto MD Sodium [Moles/Vol] 139 mmol/L Normal 135-144 [facility] Comment on above: Performed By: #### S WCGP #### [address] [address] Truck Operator: Eliecer Barreto MD Urea nitrogen [Mass/Vol] 14 mg/dL Normal 6-20 [facility] Comment on above: Performed By: #### S WCGP #### [address] [address] Truck Operator: Eliecer Barreto MD CBC with Diffon 06-23-2023 Abs. Basophil 0.06 k/uL Normal 0.00-0.20 [facility] Comment on above: Performed By: #### S WCGP #### [facility] [employer] [address] [place] [address] Truck Operator: Eliecer Barreto MD Abs.Imm.Granulocyt e <0.03 Normal 0.00-0.30 [facility] Comment on above: Performed By: #### S WCGP #### [address] [address] Truck Operator: Eliecer Barreto MD Abs.Neutrophil (Seg) 5.92 k/uL Normal 1.50-8.10 [facility] Comment on above: Performed By: #### S WCGP #### [address] [address] Truck Operator: Eliecer Barreto MD Basophils/100 WBC (Bld) 1 % Normal 0-2 [facility] Comment on above: Performed By: #### S WCGP #### [address] [address] Truck Operator: Eliecer Barreto MD Eosinophils (Bld) [#/Vol] 0.54 10*3/uL High 0.00-0.44 [facility] Comment on above: Performed By: #### S WCGP #### [address] [address] Truck Operator: Eliecer Barreto MD Eosinophils/100 WBC (Bld) 5 % High 1-4 [facility] Comment on above: Performed By: #### S WCGP #### [address] [address] Truck Operator: Eliecer Barreto MD Erythrocyte distribution width (RBC) [Ratio] 12.6 % Normal 11.8-14.4 [facility] Comment on above: Performed By: #### S WCGP #### [address] [address] Truck Operator: Eliecer Barreto MD Hematocrit (Bld) [Volume fraction] 40.5 % Normal 36.3-47.1 [facility] Comment on above: Performed By: #### S WCGP #### [facility] [employer] [address] [place] [address] Truck Operator: Eliecer Barreto MD Hemoglobin (Bld) [Mass/Vol] 13.5 g/dL Normal 11.9-15.1 [facility] Comment on above: Performed By: #### S WCGP #### [facility] [employer] [address] [place] [address] Truck Operator: Eliecer Barreto MD Immature granulocytes/100 WBC (Bld) 0 % Normal 0 [facility] Comment on above: Performed By: #### S WCGP #### [address] [address] Truck Operator: Eliecer Barreto MD Lymphocytes (Bld) [#/Vol] 3.44 10*3/uL Normal 1.10-3.70 [facility] Comment on above: Performed By: #### S WCGP #### [address] [address] Truck Operator: Eliecer Barreto MD Lymphocytes/100 WBC (Bld) 33 % Normal 24-43 [facility] Comment on above: Performed By: #### S WCGP #### [address] [address] Truck Operator: Eliecer Barreto MD MCH (RBC) [Entitic mass] 27.6 pg Normal 25.2-33.5 [facility] Comment on above: Performed By: #### S WCGP #### [address] [address] Truck Operator: Eliecer Barreto MD MCHC (RBC) [Mass/Vol] 33.3 g/dL Normal 28.4-34.8 [facility] Comment on above: Performed By: #### S WCGP #### [address] [address] Truck Operator: Eliecer Barreto MD MCV (RBC) [Entitic vol] 82.7 fL Normal 82.6-102.9 [facility] Comment on above: Performed By: #### S WCGP #### [address] [address] Truck Operator: Eliecer Barreto MD Monocytes (Bld) [#/Vol] 0.57 10*3/uL Normal 0.10-1.20 [facility] Comment on above: Performed By: #### S WCGP #### [address] [address] Truck Operator: Eliecer Barreto MD Monocytes/100 WBC (Bld) 5 % Normal 3-12 [facility] Comment on above: Performed By: #### S WCGP #### [address] [address] Truck Operator: Eliecer Barreto MD Neutrophil (Seg) 56 % Normal 36-65 [facility] Comment on above: Performed By: #### S WCGP #### [address] [address] Truck Operator: Eliecer Barreto MD NRBC Automated 0.0 per 100 WBC Normal 0.0 [facility] Comment on above: Performed By: #### S WCGP #### [address] [address] Truck Operator: Eliecer Barreto MD Platelet mean volume (Bld) [Entitic vol] 11.5 fL Normal 8.1-13.5 [facility] Comment on above: Performed By: #### S WCGP #### [address] [address] Truck Operator: Eliecer Barreto MD Platelets (Bld) [#/Vol] 248 10*3/uL Normal 138-453 [facility] Comment on above: Performed By: #### S WCGP #### [address] [address] Truck Operator: Eliecer Barreto MD RBC (Bld) [#/Vol] 4.90 10*6/uL Normal 3.95-5.11 [facility] Comment on above: Performed By: #### S WCGP #### [address] [address] Truck Operator: Eliecer Barreto MD WBC (Bld) [#/Vol] 10.6 10*3/uL Normal 3.5-11.3 [facility] Comment on above: Performed By: #### S WCGP #### [facility] [address] [place], [place] [phone] Truck Operator: Eliecer Barreto MD HCG Screen, Bloodon 06-23-20 HCG Screen, Blood Negative Normal NEG [facility] Comment on above: Result Comment: Spec imens with hCG levels near the threshold of the test (25 mIU/mL) may give a negative or indeterminate result. In such cases, another test should be performed with a new specimen in 48-72 hours. If early is suspected clinically in this setting, correlation with quantitative serum b-hCG level is suggested. [facility] has confirmed the use of plasma for this test. This has not been cleared or approved by the U.S. Food and Drug Administration. The FDA has determined that such clearance is not necessary. Performed By: #### S WCGP #### [facility] [address] [place], [place] [phone] Truck Operator: Eliecer Barreto MD Magnesiumon 6 Magnesium [Mass/Vol] 2.0 mg/dL Normal 1.6-2.6 [facility] Comment on above: Performed By: #### S WCGP #### [facility] [address] [place] [address] Truck Operator: Eliecer Barreto MD Urinalysis w/ Microon 2022 Bilirubin, SemiQt,Ur Negative Normal NEG [facility] Comment on above: Performed By: #### U AMIC #### [facility] [address] [place] [address] [place] [address] Truck Operator: Patricio Kelley MD Blood, Urine Negative Normal NEG [facility] Comment on above: Performed By: #### U AMIC #### [facility] [address] [place] [address] Truck Operator: Patricio Kelley MD Clarity (U) Clear Normal CLEAR [facility] Comment on above: Performed By: #### U AMIC #### [facility] [address] [place], [place] [phone] Truck Operator: Patricio Kelley MD Color (U) Yellow Normal YEL [facility] Comment on above: Performed By: #### U AMIC #### [facility] [address] [place], [place] [phone] Truck Operator: Patricio Kelley MD Epithelial cells LM Ql (Urine sed) 0 TO 2 Normal 0-25 [facility] Comment on above: Performed By: #### U AMIC #### [facility] [address] [place], [place] [phone] Truck Operator: Patricio Kelley MD Glucose Ql (U) Negative Normal NEG [facility] Comment on above: Performed By: #### U AMIC #### [facility] [address] [place] [address] Dr. [place], [place] [phone] Truck Operator: Patricio Kelley MD Ketones Ql (U) Negative Normal NEG [facility] Comment on above: Performed By: #### U AMIC #### [facility] [address] [place] [address] Dr. [place], [place] [phone] Truck Operator: Patricio Kelley MD Leukocyte esterase Test strip Ql (U) Negative Normal NEG [facility] Comment on above: Performed By: #### U AMIC #### [facility] [address] [place] [address] Dr. [place], [place] [phone] Truck Operator: Patricio Kelley MD Nitrite,Ur Negative Normal NEG [facility] Comment on above: Performed By: #### U AMIC #### [facility] [address] [place] [address] Dr. [place], [place] [phone] Truck Operator: Patricio Kelley MD PH,Ur 6.0 Normal 5.0-9.0 [facility] Comment on above: Performed By: #### U AMIC #### [facility] [address] [place] [phone] Truck Operator: Patricio Kelley MD Protein Ql (U) Negative Normal NEG [facility] Comment on above: Performed By: #### U AMIC #### [facility] [address] [place] [address] [place] [place], [place] [phone] Truck Operator: Patricio Kelley MD Spec. [place],Ur 1.020 Normal 1.010-1.020 [facility] Comment on above: Performed By: #### U AMIC #### [facility] [address] [place] [address] Dr. [place], [place] [phone] Truck Operator: Patricio Kelley MD Urine RBC's None Normal 0-2 [facility] Comment on above: Performed By: #### U AMIC #### [address] [place], [place] [phone] Truck Operator: Patricio Kelley MD Urine WBC's None Normal 0-5 [facility] Comment on above: Performed By: #### U AMIC #### [facility] [address] [place] [address] Dr[place], [place] [phone] Truck Operator: Patricio Kelley MD Urobilinogen,Ur Normal Normal 0.0-1.0 [facility] Comment on above: Performed By: #### U AMIC #### [facility] [address] [place] [address] Dr. [place], [facility] Truck Operator: Patricio Kelley MD Microscopic Urinalysison Epithelial Cells UA 0 TO 2 [facility] RBC clumps Auto (Urine sed) [#/Area] GREATER THAN 100 [facility] WBC, UA None [facility] , urineon 3 Beta HCG ( test) Ql (U) Negative NEGATIVE [facility] Comment on above: Specimens with hCG l evels near the threshold of the test (25 mIU/mL) may give a negative or indeterminate result. In such cases, another test should be performed with a new specimen in 48-72 hours. If early is suspected clinically in this setting, correlation with quantitative serum b-hCG level is suggested. [employer] has confirmed the use of plasma for this test. This has not been cleared or approved by the U.S. Food and Drug Administration. The FDA has determined that such clearance is not necessary. [facility] Urinalysison 01-19-2023 Bilirubin Urine Negative NEGATIVE [facility] [employer] Color, UA Yellow Yellow [facility] Glucose Auto test strip (U) [Mass/Vol] Negative NEGATIVE [facility] Interpretation and review of laboratory results Abnormal [facility] Ketones (U) [Mass/Vol] Negative NEGATIVE [facility] Leukocyte esterase Auto test strip Ql (U) Negative NEGATIVE [facility] Nitrite Auto test strip Ql (U) Negative NEGATIVE [facility] Protein (U) [Mass/Vol] 6.0 mg/dL 5.0 - 9.0 [facility] Protein (U) [Mass/Vol] Negative NEGATIVE [facility] Specific [place], UA High 1.010 - 1.020 [facility] Turbidity UA Clear Clear [facility] Urine Hgb 3+ Abnormal NEGATIVE [facility] Urobilinogen, Urine Normal Normal [facility] Wet Prep, Genitalon 01-20-20 Interpretation and review of laboratory results Abnormal [facility] Microorganism or agent identified Nom (Unsp spec) NO CLUE CELLS SEEN [facility] Microorganism or agent identified Nom (Unsp spec) NO YEAST OBSERVED [facility] Microorganism or agent identified Nom (Unsp spec) TRICHOMONAS Abnormal [facility] Specimen Description .VAGINA [facility] CNPJennifer 11-29-2021 KATHERINE Telephone (HEMASA) ----- EDGAR ORTIZ ([id number]) 1995 F Date Time Provider Department 11/29/21 ALBINO KILGORE During your visit today, we recorded the following information about you: Albino Kilgore RN 11/29/2021 11:36 AM Signed Received call from pt who stating she has Von Willebrand's disease and Dr Pate told her she doesn't need to see him until she is ready to have children but she is going to [place] soon and they are requiring her to [...] Fully Assessed Reason for Visit: Medication Question [5898] Prescriptions as of 11/29/2021 - Desmopressin Acetate (STIMATE) 150 mcg/spray (0.1 mL) spry Use 1 [place] in the nose as needed. - Desmopressin Acetate (STIMATE) 150 mcg/spray spry Use 1 [place] in the nose as needed. - Desmopressin Acetate (STIMATE) 150 mcg/spray [place] Use 1 [place] in the nose once daily as needed. [...] Status:Closed by ALBINO KILGORE on 11/29/21 Normal [facility] COVID-19, MOLECULARon 2020 SARS-CoV-2 (COVID-19) Ab IA Ql Not detected Normal Not Detected [facility] Comment on above: Result Comment: [...] at the following links: For Healthcare Providers: https://www.fda.gov/media/789399/download For Patients: https://www.fda.gov/media/309437/download , Urineon 0 Beta HCG ( test) Ql (U) Negative NEGATIVE [facility] [employer] [place], [place] Comment on above: Specimens with hCG l evels near the threshold of the test (25 mIU/mL) may give a negative or indeterminate result. In such cases, another test should be performed with a new specimen in 48-72 hours. If early is suspected clinically in this setting, correlation with quantitative serum b-hCG level is suggested. [employer] has confirmed the use of plasma for this test. This has not been cleared or approved by the U.S. Food and Drug Administration. The FDA has determined that such clearance is not necessary. Urinalysis with Microscopico n 05-16-2020 Amorphous, UA NOT REPORTED None [employer] [facility] [place], [place] Bacteria, UA NOT REPORTED None [facility] [place] [place] Bilirubin Urine Negative NEGATIVE [facility] [place] [place] Casts UA NOT REPORTED /LPF [facility] [place] Color, UA YELLOW YELLOW [facility] Crystals, UA NOT REPORTED None /HPF [facility] [place] Epithelial Cells UA 0 TO 2 [facility] Glucose, Ur Negative NEGATIVE [facility] Interpretation and review of laboratory results Abnormal [facility] Ketones Ql (U) Negative NEGATIVE [facility] [place] Leukocyte esterase Test strip Ql (U) Negative NEGATIVE [facility] Mucus, UA NOT REPORTED None [facility], [place] Nitrite, Urine Negative NEGATIVE [facility], [place] Other Observations UA NOT REPORTED NOT REQ. [facility], [place] pH, UA 7.0 [facility] Protein (U) [Mass/Vol] Negative NEGATIVE [facility] RBC (U) [#/Vol] None [facility] [place] [place] Renal Epithelial, UA NOT REPORTED 0 /HPF [facility], [place] Specific [place], UA <1.005 Low [facility], [place] Trichomonas, UA NOT REPORTED None [facility] [place] Turbidity UA CLEAR CLEAR [facility], [place] Urinalysis Comments NOT REPORTED [facility], [place] Urine Hgb Negative NEGATIVE [place], [place] Urobilinogen, Urine Normal Normal [facility], [place] WBC, UA 0 TO 2 [facility] Yeast, UA NOT REPORTED None [facility], [place] - [facility], [place] Otheron 12-01-2019 Evidence of mild bronchitis or atypical infection in the lingula. Workstation ID: [id number] [facility] EXAMINATION: XR CHES T AP/PA AND [...] No consolidation. No pleural effusion or pneumothorax. [facility] Rad In Fu ji Speechq - 12/01/2019 [...] infection in the lingula. Workstation ID: [id number] [facility] POC INFLUENZA A/B MOLECULARo n 10-18-2019 FLUAV Ag Ql (Nph) Negative Negative [facility] FLUBV Ag Ql (Nph) Positive Abnormal Negative [facility] Interpretation and review of laboratory results Abnormal [facility] Vital Signs Date Time Vital Sign Value Performing Clinician Natashai torey 06-02-2024 13:03-0400 Body height 157.5 cm Jung Ama DO Work Phone: [facility] 06-02-2024 13:03-0400 Body mass index (BMI) [Ratio] 36.03 kg/m2 Jung Ama DO Work Phone: [facility] 06-02-2024 13:03-0400 Body weight 89.36 kg Jung Ama DO Work Phone: [facility] 06-02-2024 13:03-0400 Diastolic blood pressure 72 mm[Hg] Jung Ama DO Work Phone: [facility] 06-02-2024 13:03-0400 Systolic blood pressure 118 mm[Hg] Jung Ama DO Work Phone: [facility] 01-19-2023 21:23-0400 Body mass index (BMI) [Ratio] 33.84 kg/m2 Fior Villatoro DO Work Phone: [employer] 01-19-2023 21:23-0400 Body temperature 97 [degF] Fior Villatoro DO Work Phone: [facility] [facility] 01-19-2023 21:23-0400 Body weight 83.92 kg Fior Villatoro DO Work Phone: [employer] 01-19-2023 21:23-0400 Diastolic blood pressure 95 mm[Hg] Fior Villatoro DO Work Phone: [employer] 01-19-2023 21:23-0400 Heart rate 87 /min Fior Villatoro DO Work Phone: [employer] 01-19-2023 21:23-0400 Respiratory rate 16 /min Fior Villatoro DO Work Phone: [facility] 01-19-2023 21:23-0400 SaO2% (BldA) [Mass fraction] 98 % Fior Villatoro DO Work Phone: [facility] 01-19-2023 21:23-0400 Systolic blood pressure 144 mm[Hg] Fior Villatoro DO Work Phone: [facility] 09-30-2020 12:52-0500 BP Diastolic 84 mm[Hg] [facility] 09-30-2020 12:52-0500 BP Systolic 131 mm[Hg] [facility] 09-30-2020 12:48-0500 BMI (Body Mass Index) 38.19 kg/m2 [facility] 09-30-2020 12:48-0500 Body weight 94.71 kg [facility] 09-30-2020 12:48-0500 Height 157.5 cm [facility] 09-30-2020 12:48-0500 Pulse (Heart Rate) 72 /min [facility] 09-30-2020 12:48-0500 Pulse Oximetry 98 % [facility] 09-30-2020 12:48-0500 Respiratory Rate 16 /min [facility] 08-11-2020 13:14-0400 Body Temperature 98.2 [degF] Shannan Altaf [facility], [place] 08-11-2020 13:14-0400 BP Diastolic 99 mm[Hg] Shannan Altaf [facility] , [place] 08-11-2020 13:14-0400 BP Systolic 132 mm[Hg] Shannan Altaf [facility] , [place] 08-11-2020 13:14-0400 Pulse (Heart Rate) 66 /min [place], [place] 08-11-2020 13:14-0400 Pulse Oximetry 100 % Shannan Altaf [place], [place] 08-11-2020 13:14-0400 Respiratory Rate 16 /min Shannna Altaf [facility], [place] 03-23-2020 20:39-0400 BMI (Body Mass Index) 40.79 kg/m2 Arielle Guerrero [facility] 03-23-2020 20:39-0400 Body Temperature 98.01 [degF] Arielle Guerrero [facility] 03-23-2020 20:39-0400 Body weight 101.15 kg Arielle Guerrero [facility] 03-23-2020 20:39-0400 BP Diastolic 78 mm[Hg] Arielle Guerrero [facility] 03-23-2020 20:39-0400 BP Systolic 116 mm[Hg] Arielle Guerrero [facility] 03-23-2020 20:39-0400 Height 157.5 cm Ariellenicholas Guerrero [facility] 03-23-2020 20:39-0400 Pulse (Heart Rate) 80 /min Arielle Guerrero [facility] 03-23-2020 20:39-0400 Pulse Oximetry 98 % Arielle Guerrero [facility] 03-23-2020 20:39-0400 Respiratory Rate 16 /min Arielle Guerrero [facility] 12-01-2019 14:38-0500 BMI (Body Mass Index) 40.16 kg/m2 [facility] 12-01-2019 14:38-0500 Body Temperature 97 [degF] [facility] 12-01-2019 14:38-0500 Body weight 100.25 kg [facility] 12-01-2019 14:38-0500 BP Diastolic 85 mm[Hg] Gloria [facility] 12-01-2019 14:38-0500 BP Systolic 129 mm[Hg] [facility] 12-01-2019 14:38-0500 Pulse (Heart Rate) 76 /min [facility] 12-01-2019 14:38-0500 Pulse Oximetry 97 % [facility] 12-01-2019 14:38-0500 Respiratory Rate 16 /min [facility] 10-18-2019 11:13-0500 BMI (Body Mass Index) 38.85 kg/m2 Arielle Guerrero [facility] 10-18-2019 11:13-0500 Body Temperature 98.29 [degF] Arielle Guerrero [facility] 10-18-2019 11:13-0500 Body weight 96.98 kg Arielle Guerrero [facility] 10-18-2019 11:13-0500 BP Diastolic 80 mm[Hg] Arielle Guerrero [facility] 10-18-2019 11:13-0500 BP Systolic 128 mm[Hg] Arielle Guerrero [facility] 10-18-2019 11:13-0500 Pulse (Heart Rate) 102 /min Arielle Guerrero [facility] 10-18-2019 11:13-0500 Pulse Oximetry 99 % Arielle Guerrero [facility] 10-18-2019 11:13-0500 Respiratory Rate 17 /min Arielle Guerrero [facility] 07-06-2019 12:59-0400 BMI (Body Mass Index) 38.12 kg/m2 Bertha Irving [facility] 07-06-2019 12:59-0400 Body Temperature 100.29 [degF] Bertha Irving [facility] 07-06-2019 12:59-0400 Body weight 95.17 kg Bertha Snow [facility] 07-06-2019 12:59-0400 BP Diastolic 79 mm[Hg] Bertha [facility] 07-06-2019 12:59-0400 BP Systolic 138 mm[Hg] Bertha Snow [facility] 07-06-2019 12:59-0400 Height 158 cm Bertha [facility] 07-06-2019 12:59-0400 Pulse (Heart Rate) 80 /min Bertha Snow [facility] 07-06-2019 12:59-0400 Pulse Oximetry 98 % Bertha [facility] 07-06-2019 12:59-0400 Respiratory Rate 16 /min Bertha Snow [facility] 06-21-2019 20:08-0400 BP Diastolic 107 mm[Hg] [facility] 06-21-2019 20:08-0400 BP Systolic 147 mm[Hg] [facility] 06-21-2019 19:24-0400 BMI (Body Mass Index) 38.23 kg/m2 [facility] 06-21-2019 19:24-0400 Body Temperature 98.49 [degF] [facility] 06-21-2019 19:24-0400 Body weight 94.8 kg [facility] 06-21-2019 19:24-0400 Pulse (Heart Rate) 66 /min [facility] 06-21-2019 19:24-0400 Pulse Oximetry 100 % [facility] 06-21-2019 19:24-0400 Respiratory Rate 14 /min Sun Mehul [facility] Encounters Encounter Date Encounter Type Care Provider Facility Start: 06-09-2024 End: 06-11-2024 [facility] Start: 06-02-2024 End: 06-02-2024 Bamboo flowsheet Jung Ama DO Work Phone: [facility] Start: 06-02-2024 End: 06-02-2024 Bamboo flowsheet Jung Ama DO Work Phone: [facility] Start: 06-02-2024 End: 06-02-2024 Office outpatient visit 15 minutes Jung Ama DO Work Phone: [facility] Comment on above: Preop examination; PCOS (polycystic ovarian syndrome); Dyspareunia in female; Abnormal uterine bleeding (AUB); Hormone imbalance; Elevated prolactin level; Pelvic pain in female Start: 06-02-2024 End: 06-02-2024 Preprocedural examination done Jung Ama DO Work Phone: [facility] Start: 06-02-2024 End: 06-02-2024 ambulatory JUNG AMA Not Available Start: 05-28-2024 End: 05-30-2024 ambulatory [facility] Start: 05-28-2024 End: 05-30-2024 Subsequent hospital visit by physician [facility] Comment on above: Dyspareunia, female; Abnormal uterine bleeding Start: 05-27-2024 End: 05-27-2024 ambulatory [facility] Start: 05-27-2024 End: 05-27-2024 Subsequent hospital visit by physician Joi Lewis MD Work Phone: [facility] Start: 05-18-2024 End: 05-18-2024 ambulatory JUNG AMA Not Available Start: 02-15-2024 End: 02-15-2024 Emergency department patient visit [facility] Start: 02-09-2024 End: 02-09-2024 ambulatory [facility] Start: 2023 End: 2023 ambulatory [facility] Start: 08-18-2023 End: 08-18-2023 ambulatory [facility] Start: 06-23-2023 End: 06-23-2023 Emergency department patient visit JOI Helene [facility] Start: 01-19-2023 End: 01-19-2023 Emergency department patient visit Fior Villatoro DO Work Phone: [facility] ED Comment on above: Vaginal itching (Liz driss Dx) Start: 02-22-2021 End: 02-22-2021 ambulatory [facility] Start: 12-13-2020 End: 12-13-2020 Orders Only Anne Fishmanlashaun Colón Work Phone: [facility] Start: 09-30-2020 End: 09-30-2020 ambulatory [facility] Start: 09-30-2020 End: 09-30-2020 Office outpatient visit 15 minutes Veronica Sanford [facility] Comment on above: Impetigo (Primary Dx ) Start: 08-11-2020 End: 08-11-2020 Emergency department patient visit Shannan Solitario Work Phone: [facility] ED Comment on above: Acute rhinitis (Prim lisbet Dx) Start: 05-16-2020 End: 05-16-2020 Subsequent hospital visit by physician Joi Lewis [facility] Start: 03-23-2020 End: 03-23-2020 ambulatory [facility] Start: 03-23-2020 End: 03-23-2020 Office outpatient visit 15 minutes Arielle Guerrero Work [facility]: [facility] Comment on above: Post-nasal drip (Liz driss Dx); Cough Start: 01-21-2020 End: 01-21-2020 Documentation procedure Bertha Merchant Work Phone: [facility] [place] Start: 12-01-2019 End: 12-01-2019 Subsequent hospital visit by physician Gloria Fatima Work Phone: [facility] Comment on above: Bronchitis Start: 12-01-2019 End: 12-01-2019 Office outpatient visit 15 minutes Gloria Fatima Work Phone: [facility] Comment on above: Lower respiratory tr act infection (Primary Dx) Start: 10-18-2019 End: 10-18-2019 Office outpatient visit 15 minutes Arielle Guerrero Work Phone: [facility] Comment on above: Influenza B (Primary Dx) Start: 07-06-2019 End: 07-06-2019 Office outpatient visit 15 minutes Bertha Escobarcamilla Irving Work Phone: [facility] Comment on above: Bronchitis (Primary Dx); Dermatitis Start: 06-21-2019 End: 06-21-2019 Office outpatient new 30 minutes Sun Min Mehul Work Phone: [facility] Comment on above: Sunburn (Primary Dx) Start: 10-02-2018 Patient encounter procedure ANDREA LUCIANO [facility] Ambulatory Procedures Date Procedure Procedure Detail Performing [...] dip stick/tabl et reagent auto microscopy Blayne Bienvenido Hdez Work Phone: Start: 12-01-2019 Standard chest X-ray Ka renato Fatima Work Phone: Start: 10-18-2019 Influenzavirus antib heena assay Arielle QuinonezBee Rhoadesruddy Work Phone: Start: 08-18-2018 Microscopic observat ion [Identifier] in Cervix by Cyto stain Andra Carver Plan of Treatment Date Care Activity Detail Author Start: 02-07-2025 Depression Screen Depression Screen [facility] Start: 07-02-2024 End: 07-02-2024 Patient encounter procedure 07/02/2024 8:30 AM EDT Procedure Visit [facility] Jung Serrato, DO [address] [place], [place] [id number] [facility] Start: 06-13-2024 Influenza vaccination Influenza Vacc ine (#1) [facility] Start: 06-02-2024 End: 06-02-2025 MR Brain WO and W contrast IV MR brain w and wo contrast routine Imaging Routine Elevated prolactin level Expected: 06/02/2024 (Approximate), Expires: 06/02/2025 [facility] Work Phone: Comment on above: Expected: 06/02/2024 (Approximate), Expires: 06/02/2025 Start: 06-02-2024 End: 06-02-2024 Patient encounter procedure 06/02/2024 1:00 PM EDT Consult [facility] [address] [place] [id number] Jung Serrato, DO [address] [place] [address] Arrived [facility] Comment on above: Arrived Start: 05-28-2024 End: 05-28-2024 Patient encounter procedure 05/28/2024 9:00 PM EDT Appointment [facility] [address] [id number] MEDIA CHRIS W PT [facility] Comment on above: MEDIA CHRIS W PT Start: 05-13-2024 Influenza vaccination Flu vaccine (# 1) [facility] Start: 06-13-2023 COVID-19 Vaccine ( season) COVID-19 Vaccine ( season) [facility] Start: 05-13-2023 Influenza vaccination Flu vacc ine (Season Ended) [facility] Start: 08-18-2021 Screening for malign ant neoplasm of cervix PAP SMEAR [facility] Start: 06-13-2020 Influenza vaccination Flu vaccine (# 1) [place] Start: 06-13-2020 Influenza vaccinatio n given [facility] Start: 04-11-2020 Influenza vaccinatio n given SEQUENTIAL INFLUENZA VACCINE (#1) [facility] Comment on above: Postponed from 06/13 (Patient Ill Today) Start: 06-13-2019 Influenza vaccinatio n given SEQUENTIAL INFLUENZA VACCINE (#1) [facility] Start: 04-28-2017 DTaP/Tdap/Td vaccine (7 - Td or Tdap) DTaP/Tdap/Td vaccine (7 - Td or Tdap) [facility] Start: 04-28-2017 Tet[facility] Start: 2015 Screening for malign ant neoplasm of cervix [facility] Start: 2013 DTaP/Tdap/Td vaccine (1 - Tdap) DTaP/Tdap/Td vaccine (1 - Tdap) [facility] Start: 2013 Hepatitis B vaccine (1 of 3 - 19+ 3-dose series) Hepatitis B vaccine (1 of 3 - 19+ 3-dose series) [facility] Start: 2012 Hepatitis C antibody , confirmatory test Hepatitis C Screening [facility] Start: 2010 COVID-19 Vaccine (1 of 2) COVID-19 Vaccine (1 of 2) [facility] Start: 2009 HIV screening HIV Screening [facility] Start: 2007 Varicella vaccine (1 of 2 - 13+ 2-dose series) Varicella vaccine (1 of 2 - 13+ 2-dose series) [facility] Start: 2006 Adolescent depressio n screening assessment Depression Screening (PHQ9) [facility] Start: 2006 Depression Screen Depression Screen [facility] Start: 2005 HPV vaccine (1 - 2-d ose series) HPV vaccine (1 - 2-dose series) [facility] [place] Start: 1997 History and physical examination, annual for health maintenance Wellness Visit [facility] Start: 1995 Varicella vaccine (1 of 2 - 2-dose childhood series) Varicella vaccine (1 of 2 - 2-dose childhood series) [facility] Start: 05-10-1995 COVID-19 Vaccine (#1) COVID-19 Vacci ne (#1) [facility] Start: 1994 Depression screening using PHQ-9 (Patient Health Questionnaire 9) score DEPRESSION SCREENING (PHQ9) [facility] Start: 1994 Screening for Chlamy mc trachomatis Chlamydia Screening [facility] End: 01-19-2023 C.trachomatis N.gonorrhoeae DNA [employer] Phone: Comment on above: One Time for 1 Occur rences starting 01/19/2023 until 01/19/2023 End: 05-16-2020 C.trachomatis N.gonorrhoeae DNA, Urine C.trachomatis N.gonorrhoeae DNA, Urine Microbiology Routine Once for 1 Occurrences starting 05/16/2020 until 05/16/2020 [place], [place] Comment on above: Once for 1 Occurrenc es starting 05/16/2020 until 05/16/2020 C.trachomatis N.gonorrhoeae DNA, Urine C.trachomatis N.gonorrhoeae DNA, Urine Microbiology Routine 05/16/2020 12:28 PM EDT [place], [place] End: 01-19-2023 Culture, Urine [facility] [employer] Phone: Comment on above: One Time for 1 Occur rences starting 01/19/2023 until 01/19/2023 End: 05-27-2024 DHEA [facility] [employer] Phone: Comment on above: Once for 1 Occurrenc es starting 05/27/2024 until 05/27/2024 Immunizations Immunization Date Immunization Notes Care Provider Shayne renee 06-10-2012 influenza virus vacc ine, unspecified formulation Jung Ama DO Work Phone: [facility] Payers Date Payer Category Payer Medicaid [employer] [employer] [id number] 2024-Present [address] [place] [address] [id number] 2017 Unknown [employer] PLAN xxxxxxxxxxxx 2017-Present [id number] 2017 Unknown [employer] PLAN [id number] 2017-Present [id number] 2015 Unknown [id number] 1994 Unknown [id number] [id number] 1994 Unknown [id number] 2..[id number] 1994 Unknown [id number] 2.16.840.1.450996.3.579.2.903 1994 Unknown [id number] 2.16.840.1.295125.3.579.2.903 1994 Unknown [id number] 2.16.840.1.590009.3.579.2.175 1994 Unknown [id number] 2.16.840.1.659775.3.579.2.175 1994 Unknown [id number] 2.16.840.1.792583.3.579.2.175 1994 Unknown [id number] 2.16.840.1.752218.3.579.2.125 9 1994 Unknown [id number] 2.16.840.1.371064.3.579.2.125 9 1994 Unknown [id number] 2.16.840.1.241832.3.579.2.173 1994 Unknown [id number] 2.16.840.1.478003.3.579.2.173 1994 Unknown [id number] 2.16.840.1.677404.3.579.2.173 1994 Unknown [id number] 2.16.840.1.734863.3.579.2.173 1994 Unknown [id number] [id number] 1994 Unknown [id number] 2.16.840.1.003859.3.579.2.173 1994 Unknown [id number] [id number] Social History Date Type Detail Facility Start: 06-21-2019 End: 2023 Tobacco smoking status TNIS Never smoker [employer] Start: 06-21-2019 End: 09-30-2020 Alcohol intake Current non-drinker of alcohol (finding) [facility] Start: 1995 Sex Assigned At Not on file [facility] Start: 01-09-2023 End: 01-19-2023 Exposure to SARS-CoV-2 (event) Not sure [facility] Start: 05-16-2020 End: 2023 Tobacco use and exposure [facility] [place] Start: 05-16-2020 End: 02-15-2024 Alcohol intake Current drinker of alcohol (finding) [place] Start: 06-19-2014 Alcohol Comment Socially [facility] [place] Start: 01-20-2023 History SDOH Alcohol Frequency 1 [employer] Work Phone: Start: 01-20-2023 History SDOH Alcohol Std Drinks 0 [employer] Work Phone: Start: 06-23-2023 End: 08-18-2023 History of Social function [employer] Start: 06-23-2023 End: 08-18-2023 Alcohol Use Disorder Identification Test - Consumption [AUDIT-C] [employer] How often to you hav e a drink containing alcohol? Never [employer] How many standard dr inks containing alcohol do you have on a typical day? Patient does not drink [employer] (I/We) worried wheth er (my/our) food would run out before (I/we) got money to buy more. Never true [employer] Tobacco smoking stat [facility] Tobacco smoking consumption unknown [facility] History of Present illness Narrative 06-02-2024 Christie Ricks LPN - 06/02/2024 1:00 PM EDT Note Date & Type Note Facility 06-02-2024 History of Presen t illness Narrative Reason for Appointment: Patient ID: Edgar Ortiz is a 28 y.o. female who presents for Pre-op Visit Patient presents today for Pre Op appointment. Patient is scheduled to undergo Diagnostic Laparoscopy, possible MARY, possible FOE, possible BSO on 07/02/[address] Serrato at [facility]. MEDICATIONS No current outpatient medications ALLERGIES Allergies Allergen Reactions Ibuprofen Bruising t/o the body Nsaids Other Reaction(s): Unknown PROBLEMS Active Ambulatory Problems Diagnosis Date Noted No Active Ambulatory Problems Resolved Ambulatory Problems Diagnosis Date Noted No Resolved Ambulatory Problems Past Medical History: Diagnosis Date Aortic stenosis due to bicuspid aortic valve Von Willebrand disease (CMS/HCC) HISTORY PAST MEDICAL HISTORY SOCIAL HISTORY Past Medical History: Diagnosis Date Aortic stenosis due to bicuspid aortic valve Von Willebrand disease (CMS/HCC) Social History Tobacco Use Smoking status: Not on file Smokeless tobacco: Not on file Substance Use Topics Alcohol use: Not on file Drug use: Not on file FAMILY HISTORY Family History Problem Relation Name Age of Onset Other (liver failure) Father Polycystic ovary syndrome Sister SURGICAL HISTORY History reviewed. No pertinent surgical history. REVIEW OF SYSTEMS Review of Systems: Review of Systems Constitutional: Negative. HENT: Negative. Eyes: Negative. Respiratory: Negative. Cardiovascular: Negative. Gastrointestinal: Negative. Genitourinary: Positive for dyspareunia, menstrual problem and pelvic pain. Musculoskeletal: Negative. Skin: Negative. Neurological: Negative. All other systems reviewed and are negative. Hematological: Negative. Endocrine: Negative. Allergic/Immunologic: Negative. OBJECTIVE Objective: Physical Exam Constitutional: Appearance: Normal appearance. She is well-developed. Cardiovascular: Rate and Rhythm: Normal rate and regular rhythm. Pulmonary: Effort: Pulmonary effort is normal. Breath sounds: Normal breath sounds. Abdominal: General: Bowel sounds are normal. There is no distension. Palpations: Abdomen is soft. Tenderness: There is no abdominal tenderness. There is no guarding or rebound. Musculoskeletal: General: No swelling. Normal range of motion. Right lower leg: No edema. Left lower leg: No edema. Neurological: Mental Status: She is alert and oriented to person, place, and time. Skin: General: Skin is warm and dry. Psychiatric: Mood and Affect: Mood normal. Behavior: Behavior normal. Vitals and nursing note reviewed. Exam conducted with a motion study engineer present. Vitals: Estimated body mass index is 36.03 kg/m as calculated from the following: Height as of this encounter: 5' 2 . Weight as of this encounter: 197 lb. BP: 118/72 Patient's last menstrual period was 04/28/2024. ASSESSMENT & PLAN ICD-10-CM 1. Preop examination Z01.818 2. PCOS (polycystic ovarian syndrome) E28.2 3. Dyspareunia in female N94.10 4. Abnormal uterine bleeding (AUB) N93.9 5. Hormone imbalance E34.9 6. Elevated prolactin level R79.89 MR brain w and wo contrast routine 7. Pelvic pain in female R10.2 Pre Op: Patient is doing well but has complaints of pelvic pain, AUB, dyspareunia. I have discussed conservative management vs. surgical management with the patient in detail and patient desires surgical management at this time. Patient will undergo Diagnostic Laparoscopy, possible MARY, possible FOE, possible BSO on 06/2024. Surgical consents were signed, mmc was reviewed, and [facility]. Follow Up: Patient is to follow up between 1-2 weeks post operative to assess proper healing and recovery from procedure. Documented by Christie Ricks LPN on behalf of: Jung Serrato DO documented in this encounter [facility] Discharge instructions 01-19-2023 Discharge InstructionsAttachments Note Date & Type Note Facility 01-19-2023 Hospital Discharg e instructions Fior Villatoro DO - 01/19/2023 11:23 PM EDT Take the Diflucan as prescribed. Flagyl for possible bacterial vaginosis. We will give you a call if any of the STD swabs come back positive otherwise make sure to follow-up with your sr. consultant regarding the lesion on your cervix in the next few days. If you have any concerns or questions regarding your care today, please discuss with your nurse or physician prior to leaving the emergency department. Thank you for allowing us to take care of you at [facility]. In the next few days you may receive a survey by mail or e-mail asking about the care you received during this visit. Please complete this if you are able, as this feedback helps us provide the best care possible. The following attachments cannot be sent through Care Everywhere.Vaginal Yeast Infection (Guatemalan)documented in this encounter [facility] Phone: Evaluation note Note Date & Type Note Facility Evaluation note Diagnosis Vaginal itching- Primary Pruritus of genital organs documented in this encounter [facility] Phone: Evaluation note Note Date & Type Note Facility Evaluation note Diagnosis Dyspareunia, female Dyspareunia Abnormal uterine bleeding Unspecified disorder of menstruation and other abnormal bleeding from female genital tract documented in this encounter [facility] [employer] Evaluation note Note Date & Type Note Facility Evaluation note Diagnosis Preop examination Unspecified pre-operative examination PCOS (polycystic ovarian syndrome) Polycystic ovaries Dyspareunia in female Abnormal uterine bleeding (AUB) Hormone imbalance Elevated prolactin level Pelvic pain in female Unspecified symptom associated with female genital organs documented in this encounter [facility] Instructions * Patient Instructions* Andra Carver PA-C [...] Log into your personal health record on [email or web address] and enter Z939 in the Education box to learn more about Sunburn: Care Instructions. Current as of: July 05, 2018 Content Version: 12.1 Style on Screen. Care instructions adapted under license by your healthcare professional. If you have questions about a medical condition or this instruction, always ask your healthcare professional. [employer] on Screen disclaims any warranty or liability for your [...] medicine. Get some extra rest. Take an ryug-xtp-ywactve pain medicine, such as acetaminophen (Tylenol), ibuprofen (Advil, Motrin),or naproxen (Aleve) to reduce fever and relieve body aches. Read and follow all instructions on thelabel. Do not take two or more pain medicines at the same time unless the doctor told you to. Many pain medicines have acetaminophen, which is Tylenol. Too much acetaminophen (Tylenol) can be harmful. Take an hvlk-szy-eikupzf cough medicine that contains dextromethorphan to help [...] Log into your personal health record on [email or web address] [email or web address] Campus Love and enter H333 in the Education box to learn more about Bronchitis: Care Instructions. Current as of: June 17, 2018 Content Version: 12.20054985-8563 Style on Screen. Care instructions adapted under license by your healthcare professional. If you have questions about a medical condition or this instruction, always ask your healthcare professional. [employer] disclaims any warranty or liability for your [...] amount of fluids you drink. Take an fbhi-zug-jniqocm pain medicine if needed, such as acetaminophen [...] or plain hard candy. ? Take an sbqc-pdz-tgpqfpp cough medicine that contains dextromethorphan to help [...] Log into your personal health record on https://[email or web address] [email or web address] Campus Love and enter L652 in the Education box to learn more about Influenza (Flu): Care Instructions. Current as of: March 21, 2019 Content Version: 12.3 9152-5618 Style on Screen. Care instructions adapted under license by your healthcare professional. If you have questions about a medical condition or this instruction, always ask your healthcare professional. [employer] Screen disclaims any warranty or liability for your [...] chances of quitting for good. Take an inwp-hov-trrgxis pain medicine, such as acetaminophen (Tylenol), ibuprofen [...] Log into your personal health record on [email or web address] Campus Love and enter D336 in the Education box to learn more about Pneumonia: Care Instructions. Current as of: March 21, 2019 Content Version: 12.3 6392-3791 Style on Screen. Care instructions adapted under license by your healthcare professional. If you have questions about a medical condition or this instruction, always ask your healthcare professional. Style on Screen disclaims any warranty or liability for your [...] Log into your personal health record on [email or web address] Campus Love and enter D279 in the Education box to learn more about Cough: Care Instructions. Current as of: March 21, 2019 Content Version: 12.3 3947-1209 Style on Screen. Care instructions adapted under license by your healthcare professional. If you have questions about a medical condition or this instruction, always ask your healthcare professional. [employer] disclaims any warranty or liability for your use of this information. documented in this encounter* Patient Instructions* Veronica Stephen, - 09/30/2020 1:14 PM EST Impetigo: Care Instructions Your Care Instructions Impetigo (say fm-mir-XO-go ) is a skin infection caused by [...] Log into your personal health record on [email or web address] centerPassKitogden regional medical center and enter S909 in the Education box to learn more about Impetigo: Care Instructions. Current as of: March 08, 2020 Content Version: 12.7 Style on Screen. Care instructions adapted under license by your healthcare professional. If you have questions about a medical condition or this instruction, always ask your healthcare professional. Style on Screen disclaims any warranty or liability for your use of this information. documented in this encounter History of Present Illness * Andra Carver PA-C - 06/21/2019 8:00 PM EDT PATIENT NAME: Edgar Ortiz [facility] [address] [place] [address] : 1995 DATE OF VISIT: 06/21/2019 #: [...] file Gets together: Not on file Attends christian service: Not on file Active member of club or organization: Not on file Attends meetings of clubs or organizations: Not on file Relationship status: Not on file Other Topics Concern Not on file Social History Narrative Lives with boyfriend. 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 FAMILY HISTORY Family History [...] 1:11 PM EDT PATIENT NAME: Edgar Ortiz [facility] [address] [place] [id number] : 1995 DATE OF VISIT: 07/06/2019 SS#: [id number] PROVIDER: Bertha Irving PA-C Chief Complaint [...] file Gets together: Not on file Attends christian service: Not on file Active member of club or organization: Not on file Attends meetings of clubs or organizations: Not on file Relationship status: Not on file Other Topics Concern Not on file Social History Narrative Lives with boyfriend. 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 FAMILY HISTORY Family History [...] 11:35 AM EST PATIENT NAME: Edgar Ortiz [facility] [address] [facility] [address] : 1995 DATE OF VISIT: 10/18/2019 #: [...] file Gets together: Not on file Attends christian service: Not on file Active member of club or organization: Not on file Attends meetings of clubs or organizations: Not on file Relationship status: Not on file Other Topics Concern Not on file Social History Narrative Lives with boyfriend. 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 FAMILY HISTORY Family History [...] Molecular oseltamivir (Tamiflu) 75 MG capsule pyrilamine-dextromethorphan (Madison DM) 7.5-7.5 mg/5 mL Liqd ipratropium (ATROVENT) [...] 5 days . 10 capsule 0 pyrilamine-dextromethorphan (Madison DM) 7.5-7.5 mg/5 mL Liqd Take 10 [...] I consider the discharge disposition reasonable. Edgar Ortiz and I have discussed the diagnosis and [...] 8:48 PM EDT PATIENT NAME: Edgar Ortiz [facility] [address] [place] [address] [place] [address] : 1995 DATE OF VISIT: 03/23/2020 SS#: [id number] PROVIDER: Arielle Guerrero PA-C Chief Complaint [...] file Gets together: Not on file Attends christian service: Not on file Active member of club or organization: Not on file Attends meetings of clubs or organizations: Not on file Relationship status: Not on file Other Topics Concern Not on file Social History Narrative Lives with boyfriend. 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 FAMILY HISTORY Family History [...] on 03/23/2020 .) 22 g 0 pyrilamine-dextromethorphan (Madison DM) 7.5-7.5 mg/5 mL Liqd Take 10 [...] on 03/23/2020 .) 22 g 0 pyrilamine-dextromethorphan (Madison DM) 7.5-7.5 mg/5 mL Liqd Take 10 [...] - 09/30/2020 1:00 PM EST Patient Name: [facility] Location: [address] [address] Date Of : Date Of Visit: 1995 09/30/2020 MRN# Provider: [id number] Veronica Sanford Ayaan Chief Complaint Patient presents with Rash near [...] Care Instructions Your Care Instructions Impetigo (say ag-wis-HK-go ) is a skin infection caused by [...] Log into your personal health record on [email or web address] and enter S909 in the Education box to learn more about Impetigo: Care Instructions. Current as of: March 08, 2020 Content Version: 12.7 Style on Screen. Care instructions adapted under license by your healthcare professional. If you have questions about a medical condition or this instruction, always ask your healthcare professional. 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 Use Afrin daily as directed for 3 days. Dtbt-ucx-wppbigh Claritin or Zyrtec daily while symptoms persist. Salt water gargles and/or nasal saline spray several times a day as desired for comfort. Follow-up with primary care physician within 3 to 5 days if symptoms have not resolved. Seek medical attention prior to this for any acute concerns documented in this encounter Reason for Referral Specialty Diagnoses / Procedures Referred By Contac t Referred To Contact Radiology Diagnoses Dyspareunia, female Abnormal uterine bleeding Procedures US PELVIS COMPLETE Jung Serrato MD [address] [place] [address] Referral ID Status Reason Start Date Expiration Date Visits Re quested Visits Authorized [id number] Open 05/27/2024 05/27/2025 1 1 Specialty Diagnoses / Procedures Referred By Contac t Referred To Contact Diagnoses Elevated prolactin level Procedures MR brain w and wo contrast routine Jung Serrato, DO [address] [place] [address] Referral ID Status Reason Start Date Expiration Date V isits Requested Visits Authorized [id number] Pending Review 06/02/2024 11/29/2024 1 1 Additional Source Comments Reason for [...] days Specialty Diagnoses / Procedures Referred By Contac t Referred To Contact Radiology Diagnoses Dyspareunia, female Abnormal uterine bleeding Procedures US PELVIS COMPLETE Jung Serrato MD [address] [place] [address] Referral ID Status Reason Start Date Expiration Date Visits Re quested Visits Authorized [id number] Open 05/27/2024 05/27/2025 1 1 Reason Comments Pre-op Visit Addendum Note - Bertha Irving PA-C - 07/06/2019 2:02 PM EDT Miscellaneous Notes (unrecog nized section and content) Addended by: BERTHA IRVING on: 07/06/2019 02:02 PM Modules accepted: Orders documented in this encounter INFORMATION SOURCE (unrecogn ized section and content) DATE CREATED AUTHOR 07/19/2019 [facility] DATE CREATED AUTHOR AUTHOR'S ORGANIZ ATION 02/25/2021 [facility] DATE CREATED AUTHOR AUTHOR'S ORGANIZ ATION 01/04/2022 [facility] DATE CREATED AUTHOR AUTHOR'S ORGANIZ ATION 02/10/2024 [facility] DATE CREATED AUTHOR AUTHOR'S ORGANIZ ATION 06/04/2024 [facility] DATE CREATED AUTHOR AUTHOR'S ORGANIZ ATION 06/12/2024 [facility] Héctor Cornelius pital Ordered Prescriptions (unrec ognized section and content) [...] 500 mg, Oral, ONCE, 1 dose, On 4/9/23 at 2330, Antimicrobial Indications: Other, Other Abx Indication: Bacterial vaginosis 2332 (Given - Provid er: Dianelys Mccormick RN) Care Teams (unrecognized sec tion and content) Wringer And Setter Relationship Specialty Start Date End Date Joi [place] PCP - General 01/23/16 Wringer And Setter Relationship Specialty Start Date End Date Joi [place] MD PCP - General 01/23/16 Wringer And Setter Relationship Specialty Start Date End Date Joi [place] MD PCP - General 01/23/16 Wringer And Setter Relationship Specialty Start Date End Date Joi [place] MD [address] [place] [address] PCP - General Internal Medicine 02/18/23 Wringer And Setter Relationship Specialty Start Date End Date Joi [place] MD [address] [place] [address] PCP - General Internal Medicine 02/18/23 FOR RECORDS PERTAINING TO PATIENTS WHO ARE [...] BE BASED ON THE PRIMARY CLINICAL RECORDS. [employer] provides no warranty or guarantee of the accuracy or completeness of information in this document.
[2024-12-10 11:47] LABS: Basophils Percent Auto 0.3 % (0.2-2.0); Eosinophils Absolute Auto 0.1 10^3/uL (0.0-0.7); Eosinophils Percent Auto 0.7 % (0.9-7.0); Hematocrit 37.2 % (36.0-48.0); Hemoglobin 12.8 g/dL (12.0-16.0); Immature Granulocytes Abs Auto 0.04 10^3/uL (0.00-0.03); Immature Granulocytes Pct Auto 0.4 % (0.0-0.5); Lymphocytes Absolute Auto 1.6 10^3/uL (1.2-3.8); Lymphocytes Percent Auto 15.3 % (20.5-60.0); Mean Corpuscular HGB Conc 34.4 g/dL (29.9-35.2); Mean Corpuscular Hemoglobin 27.4 pg (26.7-34.0); Mean Corpuscular Volume 79.7 fL (81.0-99.0); Mean Platelet Volume 11.6 fL (9.5-13.5); Monocytes Absolute Auto 0.6 10^3/uL (0.3-0.8); Monocytes Percent Auto 5.4 % (1.7-12.0); Neutrophils Absolute Auto 8.3 10^3/uL (1.4-6.5); Neutrophils Percent Auto 77.9 % (43.0-75.0); Platelet Count 232 10^3/uL (150-450); Red Blood Count 4.67 10^6/uL (4.20-5.40); Red Cell Distribution Width 12.2 % (11.0-15.0); White Blood Count 10.7 10^3/uL (4.0-11.0)
[2024-12-10 12:07] LABS: BOX Test Reference Lab UNITY; BOX Test Result SENT; BOX Test Sent Out UNITY BOX
[2024-12-10 12:24] LABS: Amphetamine Screen Urine NEGATIVE (NEGATIVE); Barbiturates Screen Urine NEGATIVE (NEGATIVE); Benzodiazepines Screen Urine NEGATIVE (NEGATIVE); Buprenorphine Screen Urine NEGATIVE (NEGATIVE); Cannabinoid Screen Urine POSITIVE (NEGATIVE); Cocaine Screen Urine NEGATIVE (NEGATIVE); Methadone Screen Urine NEGATIVE (NEGATIVE); Methamphetamines Screen Urine NEGATIVE (NEGATIVE); Opiate Screen Urine NEGATIVE (NEGATIVE); Oxycodone Screen Urine NEGATIVE (NEGATIVE); Phencyclidine Screen Urine NEGATIVE (NEGATIVE); Tricyclic Antidepressant Urine NEGATIVE (NEGATIVE)
[2024-12-10 12:52] LABS: Estimated Average Glucose 100 mg/dL; Glycohemoglobin A1C 5.1 % (4.5-6.2)
[2024-12-11 06:07] LABS: HBsAg Screen Negative (Negative); HCV Ab Non Reactive (Non Reactive); HIV Ab/p24 Ag Screen Non Reactive (Non Reactive); Rubella Antibodies, IgG <0.90 index (Immune >0.99)
[2024-12-11 11:08] LABS: Rapid Plasma Reagin, Quant Non Reactive titer (NonRea<1:1)
[2024-12-15 06:08] LABS: Cannabinoid Positive (.); Carboxy THC Conf, MS, UR >750 ng/mL (Cutoff=10)
== END 2024-12-10 10:45 | disposition home or self-care (01) ==
PROVIDERS: PCP Internal Medicine; Visit Provider Obstetrics & Gynecology
DX: Z34.01 Encounter for supervision of normal first pregnancy, first trimester (principal); N92.6 Irregular menstruation, unspecified; Z36.0 Encounter for antenatal screening for chromosomal anomalies
CPT/HCPCS: 36415; 80307; 80349; 83036; 85025; 86592; 86762; 86803; 86850; 86900; 86901; 87086; 87340; 87389

== ENCOUNTER 2025-02-09 19:47 | Outpatient (REF) | payer MEDICAID, SELFPAY ==
[2025-02-14 18:08] LABS: Age Gdln ACOG Testing Note (.); HPV Aptima Negative (Negative); IGP, Aptima HPV, rfx 16/18,45 Note (.)
== END 2025-02-09 19:48 | disposition home or self-care (01) ==
LOC: LAB 19:47
PROVIDERS: PCP Internal Medicine; Visit Provider Nurse Practitioner Family
DX: Z01.419 Encounter for gynecological examination (general) (routine) without abnormal findings (principal)
CPT/HCPCS: 87624; 88175

== ENCOUNTER 2025-04-22 15:00 | Outpatient (OUT) | payer MEDICAID, SELFPAY ==
--- NOTE | 2025-04-22 | US_ITS ---
The [address] [address] Patient Name: MARGARET ORTIZ MRN: [id number] date: 1995 Sex: F Assigned Patient Location: Current Patient Location: Accession/Order Number: [id number] Exam Date: 04/22/2025 16:36 Report Date: 04/22/2025 16:39 At the request of: CRESENCIO RAPP Procedure: US OB growth US OB growth 04/22/2025 3:46 PM SIGNS AND SYMPTOMS: ^AORTIC VALVE STENOSIS I35.0 COMPARISON: None. TECHNIQUE: Limited pelvic ultrasound using transvesical sonography. FINDINGS: An early intrauterine is identified. The visualized pole has an estimated gestational age of 28 weeks and 6 days. A heart rate is identified at 142 bpm. A normal amount of amniotic fluid is present. Amniotic fluid index is 18.2 cm. There is no evidence for placenta previa or subchorionic hemorrhage. Estimated weight is 2.77 pounds (17.2 percentile) Pelvic survey reveals no gross abnormalities. US/US OB growth IMPRESSION: Single live IUP with an estimated gestational age of 28 weeks and 6 days and a normal heart rate. Impression dictated by: Tyson Lovett M.D. 04/22/2025 4:39 PM Dictation Location: [place] [address] Electronically authenticated by: [id number] Y Date: 04/22/2025 16:39
== END 2025-04-22 15:01 | disposition home or self-care (01) ==
LOC: US 15:00
PROVIDERS: PCP Internal Medicine; Visit Provider Physician Assistant
DX: O26.893 Other specified pregnancy related conditions, third trimester (principal); Z3A.28 28 weeks gestation of pregnancy; D68.00 Von Willebrand disease, unspecified; I35.0 Nonrheumatic aortic (valve) stenosis
CPT/HCPCS: 76816

== ENCOUNTER 2025-05-03 14:59 | Outpatient (OUT) | payer MEDICAID, SELFPAY ==
--- NOTE | 2025-05-03 | US_ITS ---
[place] [id number] Patient Name: MARGARET ORTIZ MRN: [id number] date: 1995 Sex: F Assigned Patient Location: [facility] Current Patient Location: [facility] Accession/Order Number: [id number] Exam Date: 05/03/2025 16:23 Report Date: 05/03/2025 16:24 At the request of: CRESENCIO RAPP Procedure: US OB BPP w non-stress Biophysical profile. Reason for exam: Von Willebrand's disease COMPARISON: None TECHNIQUE: Transabdominal imaging of the gravid uterus was obtained. FINDINGS: The furnace room supervisor reports a BPP of 8 out of 8. ISABELL is normal at 17.4 cm. heart rate 131 bpm. US/US OB BPP w non-stress IMPRESSION: BPP 8 out of 8. Impression dictated by: Parrish Wise Jr., D.O. 05/03/2025 4:24 PM Dictation Location: [place] [address] Electronically authenticated by: [id number] Y Date: 05/03/2025 16:24
[2025-05-03 15:37] VITALS: BP 116/79; PULSE 89
== END 2025-05-03 16:55 | disposition home or self-care (01) ==
LOC: US 14:59 → FBC 15:00
PROVIDERS: PCP Internal Medicine; Visit Provider Physician Assistant
DX: O26.893 Other specified pregnancy related conditions, third trimester (principal); D68.00 Von Willebrand disease, unspecified; Z3A.30 30 weeks gestation of pregnancy
CPT/HCPCS: 76818

== ENCOUNTER 2025-05-06 18:05 | Outpatient (OUT) | payer MEDICAID, SELFPAY ==
--- OUTSIDE RECORDS SUMMARY | 2024-06-22 08:30 | XMS_ITS ---
Author Organization The [facility] in [place] Address [address] [place] [address] Care Team Providers Care Clinical Review Specialist Name Role Phone Blake LOYOLA, Oliver Primary Care Provider Reba Chicas Unavailable [phone] REASON FOR VISIT New PT Hem Encounters Encounter Location Date Provider Diagnosis [facility] [address] [place] [phone] 06/22/2024 Reba Tovar Plan Of Treatment No Information Progress Notes * Edgar GIFFORD MDOB: [birth year] (29 yo F)Acc No.[id number]:06/22/2024 UNLOCKED PROGRESS NOTE Progress Notes Patient: Edgar COLE Provider: Bienvenido Tovar M.D. :1995 A ge:28 Y S ex:Female Date:06/22/2024 Address:[address] [place], [place] [phone] Pcp:Oliver Lozano MD Subjective: * Chief Complaints: * 1 . New PT Hem. * Medical History: Objective: * Vitals: Assessment: Plan: * Treatment: * * Electronic signature of Anand Tovar MD, [id number] on 05/06/2025 at 06:08 PM EDT Sign off status: Pending Visit Status: C ONFPHONE (Voice) * Provider: Bienvenido Tovar M.D. Date: 06/22/2024 Generated for Printi ng/Faxing/eTransmitting on: 0 05/06/2025 06:08 PM EDT
--- OUTSIDE RECORDS SUMMARY | 2024-07-06 10:30 | XMS_ITS ---
Author Organization The [facility] in [place] Address [address] [place] [address] Care Team Providers Care Inspector Bicycle Name Role Phone Blake LOYOLA, Oliver Primary Care Provider Reba Chicas Unavailable [phone] REASON FOR VISIT MD TELEHEALTH Encounters Encounter Location Date Provider Diagnosis [facility] On[facility] [address] [place] [phone] 07/06/2024 Reba Tovar Plan Of Treatment No Information Progress Notes * Edgar GIFFORD MDOB: [birth year] (29 yo F)Acc No.[id number]:07/06/2024 UNLOCKED PROGRESS NOTE Progress Notes Patient: Edgar COLE Provider: Bienvenido Tovar M.D. :1995 A ge:28 Y S ex:Female Date:07/06/2024 Address:[address] [place], [place] [phone] Pcp:Oliver Lozano MD Subjective: * Chief Complaints: * 1 . MD TELEHEALTH. * Medical History: Objective: * Vitals: Assessment: Plan: * Treatment: * * Electronic signature of Anand Tovar MD, [id number] on 05/06/2025 at 06:08 PM EDT Sign off status: Pending Visit Status: C ANC (Cancelled) * Provider: Bienvenido Tovar M.D. Date: 0 07/06/2024 Generated for Printi ng/Fanéstor/eTransmitting on: 0 05/06/2025 06:08 PM EDT
--- OUTSIDE RECORDS SUMMARY | 2025-02-08 09:51 | XMS_ITS | Continuity of Care Document ---
Author Organization [facility] Address [address] [place] [phone] Phone Care Team Providers Care Pecan Gatherer Name Role Phone Geena Sewell DDS Unavailable [...] Diagnoses Date Provider Providers Copied on Encounter [facility], [address] [place] [address], [id number], tel:[phone] Dental Clinic dental er (chief complaint) No Information Donato JAYS Geena. . tel:[phone] [facility], [address] [place] [address], [id number], tel:[phone] Dental Clinic Encounter for screening for dental disorders Donato JAYS Geena. . tel:[phone] Family History Family Member Type Diagnosis Age [...]
--- OUTSIDE RECORDS SUMMARY | 2025-05-02 14:00 | XMS_ITS | Encounter Summary ---
Author Organization [facility] Address [address] [place] [address] Care Team Providers Care Sample Washer Name Role Phone Oliver Lozano MD Primary Care Provider [phone] Reason for Visit * Reason Comments Follow-up Encounter Details Date Type Department Care Team (Latest Contact Info) Description 05/02/2025 2:00 PM EDT Office Visit [facility] [address] [place] [address] Blayne Smalls MD [address] [place] [address] Aortic regurgitation due to bicuspid aortic valve (Primary Dx); Aortic stenosis due to bicuspid aortic valve; Aortic valve regurgitation due to aortic dilation; Von Willebrand disease (CMS/HCC); 30 weeks gestation of Social History Tobacco Use Types Packs/Day Years Used Date Smoking Tobacco: Never Assessed Comments Yes Sex and Gender Information Value Date Recorded Sex Assigned at Not on file Legal Sex Female 9:53 PM EDT Gender Identity Not on file Sexual Orientation Not on file documented as of this encounter Last Filed Vital Signs Vital Sign Reading Time Taken Comments Blood Pressure 112/83 05/02/2025 2:14 PM EDT Pulse 80 05/02/2025 2:14 PM EDT Temperature - - Respiratory Rate - - Oxygen Saturation 99% 05/02/2025 2:14 PM EDT Inhaled Oxygen Concentration - - Weight 92 kg (202 lb 13.2 oz) 05/02/2025 2:14 PM EDT Height 163.6 cm (5' 4.41 ) 05/02/2025 2:14 PM ED T Body Mass Index 34.37 05/02/2025 2:14 PM EDT documented in this encounter Patient Instructions * Patient Instructions* Blayne Smalls MD - 05/02/2025 2:00 PM EDT No cardiac concerns with you (mild stenosis should be well tolerated) /can't hear any significant regurgitation EKG looks good Notify me when you are in labor (I do want to see baby after ) Follow-up first october documented in this encounter Progress Notes * Blayne Smalls MD - 05/02/2025 2:00 PM EDT Oliver Lozano MD [address] [facility] [address] May 02, 2025 Patient: Edgar Gifford Date of : 1995 Date of Visit: 05/02/2025 Dear Oliver Lozano MD: I had the pleasure of seeing Edgar Gifford, at our pediatric cardiology clinic on 05/02/2025 for cardiac follow-up and consultation. Edgar [age] a 30.4 y.o. female with a history of bicuspid aortic valve with aortic regurgitation who is now 30 weeks into her first . Her due date is July 06, 2025 and she will be delivering at [facility]. Thus far her has been going well with excellent care, no significant medical problems, and she has been taking her vitamins. She tells me she has had excellent movement and her last visit with obstetrics was just in early April. During that visit there were no major concerns and she will be followed by biophysical profiles on a scheduled basis. She has now into her third trimester and by report her screens have been quite good with no signs of diabetes and normal hydration status. From a cardiac perspective, she tells me that she has had some brief episodes of right-sided sharp chest pain which only last seconds and some shortness of breath but she does not feel overly fatigued. 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 Improving her hydration has helped with some of the symptoms and she has not had to go into the emergency room. She has gained roughly 17 pounds with this and she has not had any infectious related complications, bleedingor any vaginal drainage. I am told that her obstetrical scans have been quite good and she did complain of some shoulder and bilateral arm tenderness which has been on a daily basis and associated with some stiffness but this has not hindered her from normal activity. By report, we did do her previous ultrasound and she did seem to have a fetus that had mild ascending aortic dilation or upper limits of normal and I could not see the aortic valve leaflet anatomy. The heart function was otherwise normal and there were no major concerns. She has been seeing achiropractor because of occasional headaches recently and because of her shoulder pain that we previously brought up in the history of present illness. Her chiropractor has helped with the symptoms through spinal cord manipulation. She has not had any bleeding or bruising related complications related to her von Willebrand's disease and I am told that the father of the child is 25 years of age and healthy with no history of congenital heart disease. Overall nutrition and sleep hygiene have beenquite good. She has not noted any swelling or edema. Current Medications[1] Allergies[2] Review of Systems - Respiratory ROS, Gastrointestinal ROS, Genitourinary ROS, Hematologic, Endocrinologic ROS, Immunologic, Infectious ROS, Neurologic ROS are unremarkable. On physical exam the patient was alert, cooperative, acyanotic and in no apparent distress. Vitals: 05/02/25 1414 BP: 112/83 BP Location: Right arm Patient Position: Sitting BP Cuff Size: Adult Pulse: 80 SpO2: 99% Weight: 92 kg (202 lb 13.2 oz) Height: 1.636 m (5' 4.41 ) HEENT was normal. Lungs were clear to auscultation. Neck exam demonstrated no JVD or CORRY. Chest wasnormal active without thrill. There was a regular rate and rhythm with a normal S1, soft aortic ejection click, and S2 with physiologic splitting of the S2. There is a soft 2+low-frequency systolic ejection murmur in the aortic area followed by a soft high-frequency diastolic decrescendo murmur at end expiration. Abdominal exam was consistent for a gravid abdomen of her stated gestational age with obvious movement. There was no hepatosplenomegaly. Peripheral extremities demonstrated symmetrical pulses and pulse pressure without BF delay. No clubbing, cyanosis, or edema was seen with normal capillary refill. Skin & joint exam was normal. EKG demonstrated: Sinus rhythm at a rate of 95 bpm with normal cardiac intervals and some ST segment flattening and associated repolarization abnormality. Maternal echocardiogram demonstrated: Abnormally thickened trileaflet aortic valve with suspected leaflet fusion (systolic doming) and mild stenosis and mild-plus regurgitation. Mild subvalvular aortic stenosis: suspect subaortic membrane. PSIG across the LVOT: 34 (19) mmHg inthe pressence of aortic regurgitation. Mildly dilated ascending aorta (z score 2.83) Mild mitral valve insufficiency. Patient is 15 weeks echo: History of maternal bicuspid aortic valve with aortic regurgitation Current 26 week fetus with structurally normal heart and normal biventricular systolic function. Normal PFO with fpnjz-fy-hsoi shunt and ductus arteriosus seen with kpazj-pi-qugu shunting. There is no evidence of aortic stenosis or regurgitation but the leaflet anatomy could not be delineated. Normal heart rate of 140 beats per minute with no dysrhythmia seen. Upper normal to mildly dilated normal ascending aortic diameter In conclusion, Edgar has a history of congenital bicuspid aortic valve with mild aortic valve stenosis and mild plus aortic regurgitation. She is currently 30 weeks into her first and seemsto be doing well overall with excellent care and no obvious issues. She has had excellent movement and no signs of systemic hypertension and her cardiac examination sounds quite good. I t is not uncommon for her aortic regurgitation to be quite soft since provides a low resistance circuit for the mother with aortic valve disease and this could actually make aortic regurgitation better. Her previous echocardiogram only showed mild to early moderate stenosis with normal heart function and mild plus regurgitation with mild mitral insufficiency. This is quite good for her.As you know we did a ultrasound because she has increased risk of 2 to 5% associated with congenital heart disease in the fetus. We always talk about the risk of having a child with congenital heart disease being 0.8% but in her situation with a bicuspid aortic valve and aortic stenosis she has a increased inherent risk to have a child with aortic valve disease. The heart looked very good but I could not see the aortic valve leaflets and it is suspicious that the measurements are upper normal for the ascending aorta so we will make sure that an echocardiogram is performed postnatally and that she is seen by me. She knows to call me after she goes into labor but I expect that shewill do well overall with this . She shows no signs of congestive failure and her rhythm has been normal. We talked about the hydration status that frequently occurs where she will receive a significant amount of fluid and sometimes that could lead to transient lower extremity sw elling and edema. Should that occur we would just forward diuresis to help with her fluid issues. She should be able to deliver vaginally unless any other situation should arise to contraindicate a vaginal delivery. I do not have any concerns with the fetus other than we will evaluate the child postnatally and make sure that all is good. She knows to call me should any problems arise. Should you have any further questions or suggestions, please don't hesitate to call me, Sincerely, Blayne Smalls MD, [facility] Professor of Pediatric [facility] Chief, Pediatric Cardiology This note is dictated with the use of M*Modal.Please note that this dictation was completed with computer voice recognition software. Quite often unanticipated grammatical, syntax, homophones, and other interpretive errors are inadvertently transcribed by the computer software. Please disregard these errors. Please excuse any errors that have escaped final proofreading. [1] Current Outpatient Medications Medication Sig Dispense Refill acyclovir (Zovirax) 400 mg tablet Take 400 mg by mouth if needed. no115/iron/folic acid ( 19 ORAL) Take by mouth. No current facility-administered medications for this visit. [2] Allergies Allergen Reactions Ibuprofen Other documented in this encounter Plan of Treatment Upcoming Encounters Date Type Department Care Team (Late st Contact Info) Description 10/20/2025 11:00 AM EST Office Visit [facility] [address] [place] [address] Blayne Smalls MD [address] [place] [id number] Pending Results Name Type Priority Associated Diagnoses Date /Time Electrocardiogram Report Procedures Routine Aortic regurgitation due to bicuspid aortic valve Aortic stenosis due to bicuspid aortic valve Aortic valve regurgitation due to aortic dilation Von Willebrand disease (CMS/HCC) 05/02/2025 4:34 PM EDT Scheduled Orders Name Type Priority Associated Diagnoses Orde r Schedule Electrocardiogram Report Procedures Routine Aortic regurgitation due to bicuspid aortic valve Aortic stenosis due to bicuspid aortic valve Aortic valve regurgitation due to aortic dilation Von Willebrand disease (CMS/HCC) Expected: 05/02/2025 (Approximate), Expires: 05/02/2026 documented as of this encounter Visit Diagnoses Diagnosis Aortic regurgitation due to bicuspid aortic valve- Primary Aortic stenosis due to bicuspid aortic valve Aortic valve regurgitation due to aortic dilation Von Willebrand disease (CMS/HCC) Von Willebrand's disease 30 weeks gestation of documented in this encounter Care Teams Sample Washer Relationship Specialty Start Date End Date Oliver Lozano MD [address] [facility] [address] [place] [address] PCP - General Internal Medicine 12/27/24 documented as of this encounter
--- OUTSIDE RECORDS SUMMARY | 2025-05-06 18:07 | XMS_ITS | Encounter Summary ---
Author Organization [facility] Address [address] [place] [address] Care Team Providers Care Shell Shop Supervisor Name Role Phone Unallocated, Noms Provider Primary Care Provi zoltan Encounter Details Date Type Department Care Team (Late st Contact Info) Description 04/22/2025 Clinisync Result Encounter [facility] External Department Unsolicited Provider, Generic External Data Social History Tobacco Use Types Packs/Day Years Used Date Smoking Tobacco: Never Assessed Estimated Date of Delivery Comme nts Yes 07/06/2025 Based on last me nstrual period of 09/29/2024 Sex and Gender Information Value Date Recorded Sex Assigned at Not on file Legal Sex Female 7:25 PM EDT Gender Identity Not on file Sexual Orientation Not on file documented as of this encounter Plan of Treatment Upcoming Encounters Date Type Department Care Team (Late st Contact Info) Description 05/10/2025 1:50 PM EDT Routine N[facility]ody [facility]ons OBGYN [address] [place] [address] Leyla Rapp PA [address] [place], [place] [address] documented as of this encounter Procedures Procedure Name Priority Date/Time Associated Diagnosis Comments US OB GROWTH 04/22/2025 4:39 PM EDT documented in this encounter Results * US OB GROWTH (04/22/2025 4:39 PM EDT) Anatomical Region Laterality Modality Other 04/22/2025 4:39 PM EDT Narrative 04/22/2025 4:41 PM EDT [address] [address] Ultrasound Report Signed Patient: MARGARET GIFFORD MR#: [id number] : 1995 Acct:[id number] Age/Sex: 29 / F ADM Date: 04/22/25 Loc: US Attending Dr: Leyla Rapp Ordering Physician: Leyla Rapp Date of Service: 04/22/25 Procedure(s): US OB growth Accession Number(s): [id number] cc: Leyla Rapp; JOI LEWIS [place] [id number] Patient Name: MARGARET GIFFORD MRN: [id number] date: 1995 Sex: F Assigned Patient Location: US Current Patient Location: US Accession/Order Number: [id number] Exam Date: 04/22/2025 16:36 Report Date: 04/22/2025 16:39 At the request of: LEYLA RAPP Procedure: US OB growth US OB growth 04/22/2025 3:46 PM SIGNS AND SYMPTOMS: AORTIC VALVE STENOSIS I35.0 COMPARISON: None. TECHNIQUE: Limited pelvic ultrasound using transvesical sonography. FINDINGS: An early intrauterine is identified. The visualized pole has an estimated gestational age of 28 weeks and 6 days. A heart rate is identified at 142 bpm. A normal amount of amniotic fluid is present. Amniotic fluid index is 18.2 cm. There is no evidence for placenta previa or subchorionic hemorrhage. Estimated weight is 2.77 pounds (17.2 percentile) Pelvic survey reveals no gross abnormalities. US/US OB growth IMPRESSION: Single live IUP with an estimated gestational age of 28 weeks and 6 days and a normal heart rate. Impression dictated by: Tyson Lovett M.D. 04/22/2025 4:39 PM Dictation Location: [place] [address] Electronically authenticated by: [id number] Y Date: 04/22/2025 16:39 Dictated By: Tyson Lovett M.D. Signed By: 04/22/25 1641 DD/ 1639 TD/TT: Compensation Programs Manager: Procedure Note Radiology, Radiologist, - 04/22/2025 [facility] [place] [id number] Ultrasound Report Signed Patient: MARGARET GIFFORD MMR#: [id number] : 1995Acct:[id number] Age/Sex: 29 / FADM Date: 04/22/25 Loc: US Attending Dr: Leyla Rapp Ordering Physician: Leyla Rapp Date of Service: 04/22/25 Procedure(s): US OB growth Accession Number(s): [id number] cc: Leyla Rapp; JOI LEWIS [place] [address] Patient Name: MARGARET GIFFORD MRN: [id number] date: 1995 Sex: F Assigned Patient Location: US Current Patient Location: US Accession/Order Number: [id number] Exam Date: 04/22/2025 16:36 Report Date: 04/22/2025 16:39 At the request of: LEYLA RAPP Procedure: US OB growth US OB growth 04/22/2025 3:46 PM SIGNS AND SYMPTOMS: AORTIC VALVE STENOSIS I35.0 COMPARISON: None. TECHNIQUE: Limited pelvic ultrasound using transvesical sonography. FINDINGS: An early intrauterine is identified. The visualized polehas an estimated gestational age of 28 weeks and 6 days. A heart rate is identified at 142 bpm. A normal amount of amniotic fluid is present.Amniotic fluid index is 18.2 cm. There is no evidence for placenta previa or subchorionic hemorrhage. Estimated weight is 2.77 pounds (17.2 percentile) Pelvic survey reveals no gross abnormalities. US/US OB growth IMPRESSION: Single live IUP with an estimated gestational age of 28 weeks and 6 daysand a normal heart rate. Impression dictated by: Tyson Lovett M.D. 04/22/2025 4:39 PM Dictation Location: [place] [address] Electronically authenticated by: [id number] Y Date: 6:39 Dictated By: Tyson Lovett M.D. Signed By:04/22/25 1641 DD/ 1639 TD/TT: Compensation Programs Manager: us Generic External Data Provider [facility] Final Result documented in this encounter Visit Diagnoses Not on filedocumented in this encounter Care Teams Shell Shop Supervisor Relationship Specialty Start Date End Date Unallocated, Noms MD Heriberto [address] [place] [address] PCP - General Family Medicine 03/17/25 documented as of this encounter
--- OUTSIDE RECORDS SUMMARY | 2025-05-06 18:07 | XMS_ITS | Encounter Summary ---
Author Organization [facility] Address [address] [facility] [place] [address] Care Team Providers Care Front Line Supervisor Name Role Phone Oliver Lozano MD Primary Care Provider [phone] Unallocated, Noms Provider Primary Care Provi zoltan Encounter Details Date Type Department Care Team (Late st Contact Info) Description 02/09/2024 Clinisync Result Encounter [facility] External Department Unsolicited Provider, Generic External Data Social History Tobacco Use Types Packs/Day Years Used Date Smoking Tobacco: Never Assessed Comments Unknown Sex and Gender Information Value Date Recorded Sex Assigned at Not on file Legal Sex Female 7:25 PM EDT Gender Identity Not on file Sexual Orientation Not on file documented as of this encounter Plan of Treatment Upcoming Encounters Date Type Department Care Team (Late st Contact Info) Description 05/10/2025 1:50 PM EDT Routine [facility]ons OBGYN [address] [place] [address] Leyla Matt PA [address] [place], [facility] documented as of this encounter Procedures Procedure Name Priority Date/Time Associated Diagnosis Comments US NON OB TRANSVAGINAL 02/09/2024 1:24 PM EDT documented in this encounter Results * US NON OB TRANSVAGINAL (02/09/2024 1:24 PM EDT) Anatomical Region Laterality Modality Other 02/09/2024 1:24 PM EDT Narrative 02/09/2024 1:26 PM EDT Table formatting from the original result was not included. Misha Metz on 02/09/2024 11:23 AM EDT UTERUS:anteverted, homogeneous echo pattern ENDO:7mm in thickness RT. OVARY:seen, multiple follicles visualized LT. OVARY:seen, complex finding (probable resolving cyst) noah- 1.9cm x 1.6cm x 1.4cm Interpreted by: Nickolas Swenson MD Signed by: Nickolas Swenson MD 02/09/24 Final result Procedure Note Radiology, Radiologist, MD - 02/09/2024 Table formatting from the original result was not included. Misha Metz on 02/09/2024 11:23 AM EDT UTERUS:anteverted, homogeneous echo pattern ENDO:7mm in thickness RT. OVARY:seen, multiple follicles visualized LT. OVARY:seen, complex finding (probable resolving cyst) noah- 1.9cm x1.6cm x 1.4cm Interpreted by: Nickolas Swenson MD Signed by: Nickolas Swenson MD 02/09/24 Final result Generic External Data Provider [facility] Final Result documented in this encounter Visit Diagnoses Not on filedocumented in this encounter Care Teams Front Line Supervisor Relationship Specialty Start Date End Date Oliver Lozano MD [address] [place] [address] PCP - General Internal Medicine 02/18/23 03/16/25 Unallocated, Noms Provider, [place] [address] PCP - General Family Medicine 03/17/25 documented as of this encounter
--- OUTSIDE RECORDS SUMMARY | 2025-05-06 18:07 | XMS_ITS | Encounter Summary ---
Author Organization [facility] Address [address] [place] [address] Care Team Providers Care Intern Architect Name Role Phone Oliver Lozano MD Primary Care Provider [phone] Unallocated, Noms Provider Primary Care Provi zoltan Encounter Details Date Type Department Care Team (Late st Contact Info) Description 03/14/2025 Abstract YANIQUE DRAPER [address] [place] [address] Jung Serrato DO [address] Joyce Parsons, [facility]11 Social History Tobacco Use Types Packs/Day Years [...] Description 05/10/2025 1:50 PM EDT Routine YANIQUE DRAPER [address] [place] [address] Leyla Matt PA [address] [place], [facility]11 documented as of this encounter Visit Diagnoses Not on filedocumented in this encounter Care Teams Intern Architect Relationship Specialty Start Date End Date Oliver Lozano MD [address] [facility] [address] [place] [address] PCP - General Internal Medicine 02/18/23 03/16/25 Unallocated, Noms Provider, [address] [place] [address] PCP - General Family Medicine 03/17/25 documented as of this encounter
--- OUTSIDE RECORDS SUMMARY | 2025-05-06 18:07 | XMS_ITS ---
Author Organization [facility] Source Produ ction (ClinicalSummary Clone) Address Unknown Care Team Providers Care Systems Accountant Name Role Phone Unavailable Primary Care Physician Unavailab le Results * [UNITY] CARRIER SCREEN Performed by: [place] Component Value Range Date Sickle Cell Disease/Beta-Thalassemia/Hemo globinopathies carrier screen NEGATIVE 12/22/2024 06:34 pm UTC Alpha-Thalassemia carrier screen NEGATIVE 12/22/2024 06:34 pm UTC Cystic Fibrosis carrier screen NEGATIVE 12/22/2024 06:34 pm UTC Spinal Muscular Atrophy carrier screen NEGATIVE 2 SMN1 copies, SNP not present 12/22/2024 06:34 pm UT For detailed report, see PDF See PDF 12/22/2024 06:34 pm UTC 12/22/2024 06:3 4 pm [facility] Social History Observation Value Start Date End Date
--- OUTSIDE RECORDS SUMMARY | 2025-05-06 18:07 | XMS_ITS | Encounter Summary ---
Author Organization [facility] Address [address] [place] [address] Care Team Providers Care Central Office Inspector Name Role Phone Oliver Lozano MD Primary Care Provider [phone] Unallocated, Noms Provider Primary Care Provi zoltan Encounter Details Date Type Department Care Team (Late st Contact Info) Description 11/11/2023 Clinisync Result Encounter [facility] External Department Unsolicited [...] PM EDT Routine N[facility]Melody Parsons OBGYN [address] [place] [address] Leyla Matt PA [address] [facility] [place], [facility] documented as of this encounter Procedures Procedure Name Priority Date/Time Associated Diagnosis Comments US NON OB TRANSVAGINAL 11/11/2023 11:37 AM EST documented in this encounter Results * US NON OB TRANSVAGINAL (11/11/2023 11:37 AM EST) Anatomical Region Laterality Modality Other 11/11/2023 11:3 7 AM EST Narrative 11/11/2023 4:41 PM EST Table formatting from the original result was not included. Rose Javier on 2023 3:19 PM EST UTERUS:anteverted, homogeneous echo pattern ENDO:6mm in thickness RT. OVARY:seen, complex cyst noah- 2.6cm x 2.0cm x 1.7cm LT. OVARY:seen, wnl - no cystic area seen in left adnexa on today's US Interpreted by: Nickolas Swenson MD Signed by: Nickolas Swenson MD 11/11/23 Final result Procedure Note Radiology, Radiologist, MD - 11/11/2023 Table formatting from the original result was not included. Bridger Javiernzie Helene on 2023 3:19 PM EST UTERUS:anteverted, homogeneous echo pattern ENDO:6mm in thickness RT. OVARY:seen, complex cyst noah- 2.6cm x 2.0cm x 1.7cm LT. OVARY:seen, wnl - no cystic area seen in left adnexa on today's US Interpreted by: Nickolas Swenson MD Signed by: Nickolas Swenson MD 11/11/23 Final result us Generic External Data Provider [facility] Final Result documented in this encounter Visit Diagnoses Not on filedocumented in this encounter Care Teams Central Office Inspector Relationship Specialty Start Date End Date Oliver Lozano MD [address] [place] [address] PCP - General Internal Medicine 02/18/23 03/16/25 Unallocated, Noms Provider, [address] [place] [address] PCP - General Family Medicine 03/17/25 documented as of this encounter
--- OUTSIDE RECORDS SUMMARY | 2025-05-06 18:07 | XMS_ITS | Encounter Summary ---
Author Organization [facility] Address [address] [place] [address] Care Team Providers Care Process Architect Name Role Phone Oliver Lozano MD Primary Care Provider [phone] Unallocated, Noms Provider Primary Care Provi zoltan Encounter Details Date Type Department Care Team (Late st Contact Info) Description 02/18/2025 Abstract YANIQUE DRAPER [address] [facility] [facility] [place] [address] Jung Serrato DO [address] [facility] [address] Joyce Parsons, [facility]11 Social History Tobacco Use Types Packs/Day [...] 1:50 PM EDT Routine YANIQUE DRAPER [address] [facility] [address] Leyla Matt PA [address] [place], [facility] documented as of this encounter Visit Diagnoses Not on filedocumented in this encounter Care Teams Process Architect Relationship Specialty Start Date End Date Oliver Lozano MD [address] [facility] [address] [place] [address] PCP - General Internal Medicine 02/18/23 03/16/25 Unallocated, Noms Provider, [address] [place] [address] PCP - General Family Medicine 03/17/25 documented as of this encounter
--- OUTSIDE RECORDS SUMMARY | 2025-05-06 18:07 | XMS_ITS | Encounter Summary ---
Author Organization [facility] Address [address] [place] [address] Care Team Providers Care Production Engine Repairer Name Role Phone Oliver Lozano MD Primary Care Provider [phone] Unallocated, Noms Provider Primary Care Provi zoltan Encounter Details Date Type Department Care Team (Late st Contact Info) Description 02/18/2025 Orders Only NOMMelody DRAPER [address] [place] [address] Apple Ambrocio MA Social History Tobacco Use Types Packs/Day Years [...] Description 05/10/2025 1:50 PM EDT Routine NOMMelody DRAPER [address] [facility] [address] Leyla Matt PA [address] [place], [place] [phone] documented as of this encounter Procedures Procedure Name Priority Date/Time Associated Diagnosis Comments PAP SMEAR Routine 02/09/2025 12:00 AM EDT documented in this encounter Results * Pap Smear (02/09/2025 12:00 AM EDT) Swab Cervical swab / Unknown A[facility] [place] [facility] ORDERABLES Final Result EXTERNAL LAB documented in this encounter Visit Diagnoses Not on filedocumented in this encounter Care Teams Production Engine Repairer Relationship Specialty Start Date End Date Oliver Lozano MD [address] [place] [address] PCP - General Internal Medicine 02/18/23 03/16/25 Unallocated, Noms Provider, [address] [place] [address] PCP - General Family Medicine 03/17/25 documented as of this encounter
--- OUTSIDE RECORDS SUMMARY | 2025-05-06 18:07 | XMS_ITS | Encounter Summary ---
Author Organization [facility] Address [address] [place] [address] Care Team Providers Care Tier Lift Truck Operator Name Role Phone Unallocated, Nomroberta Provider Primary Care Provi zoltan Encounter Details Date Type Department Care Team (Late st Contact Info) Description 03/24/2025 Abstract YANIQUE DRAPER [address] [facility] [place] [address] Apple Ambrocio MA Social History Tobacco [...] 1:50 PM EDT Routine YANIQUE DRAPER [address] [place] [address] Leyla Matt PA [address] [facility] [address] [facility] [address] [place], [place] [address] documented as of this encounter Visit Diagnoses Not on filedocumented in this encounter Care Teams Tier Lift Truck Operator Relationship Specialty Start Date End Date Unallocated, Noms MD [place], [place] [id number] PCP - General Family Medicine 03/17/25 documented as of this encounter
--- OUTSIDE RECORDS SUMMARY | 2025-05-06 18:07 | XMS_ITS | Encounter Summary ---
Author Organization [facility] Address [address] [place] [address] Care Team Providers Care Finish Filer Name Role Phone Unallocated, Noms Provider Primary Care Provi zoltan Encounter Details Date Type Department Care Team (Late st Contact Info) Description 04/25/2025 Orders Only [facility] [place] [facility] [address] [facility] [address] [address] [place] [address] Unallocated, Noms Provider, [place] [address] Social History Tobacco Use Types Packs/Day Years [...] PM EDT Routine NOM[facility]ody Parsons OBGYN [address] [facility] [address] [address] Leyla Matt PA [address] [place] [address] documented as of this encounter Procedures Procedure Name Priority Date/Time Associated Diagnosis Comments US OB SCAN FOR GROWTH Routine 04/22/2025 9:24 AM EDT documented in this encounter Results * US OB SCAN FOR GROWTH (04/22/2025 9:24 AM EDT) Anatomical Region Laterality Modality Body Ultrasound us Noms Provider Unallocated MD MURCIA OB US PROCEDURE S Final Result documented in this encounter Visit Diagnoses Not on filedocumented in this encounter Care Teams Finish Filer Relationship Specialty Start Date End Date Unallocated, Noms Provider, [address] [place] [address] PCP - General Family Medicine 03/17/25 documented as of this encounter
--- OUTSIDE RECORDS SUMMARY | 2025-05-06 18:07 | XMS_ITS | Encounter Summary ---
Author Organization [facility] Address [address] [facility] [place] [address] Care Team Providers Care Ld Teacher Name Role Phone Unallocated, Noms Provider Primary Care Provi zoltan Encounter Details Date Type Department Care Team (Late st Contact Info) Description 04/22/2025 Telephone [facility] Jaqueline DRAPER [address] [place] [address] [place] [phone] Sanjana Monaco LPN Social History Tobacco Use Types Packs/Day Years Used Date Smoking Tobacco: Never Assessed Estimated Date of Delivery Comme nts Yes 07/06/2025 Based on last me nstrual period of 09/29/2024 Sex and Gender Information Value Date Recorded Sex Assigned at Not on file Legal Sex Female 7:25 PM EDT Gender Identity Not on file Sexual Orientation Not on file documented as of this encounter Miscellaneous Notes * Telephone Encounter - Sanjana Monaco LPN - 04/22/2025 11:47 AM EDT 1057am Patient called and would like to have referral to [facility] [place] to delivery at [facility]. Called patient and informed her that since she was seeing [facility] that is where the referral was sentfor complete transfer of care. PVU and stated that she would prefer to deliver at [facility]. PVU and new referral was sent. Sanjana Bazan LPN 04/25/25 Called patient and LMOM that [facility] does not accept her insurance and that she will want to reach back out to [facility] to setup referral for complete transfer of care for remainder of and delivery. --ss documented in this encounter Plan of Treatment Upcoming Encounters Date Type Department Care Team (Late st Contact Info) Description 05/10/2025 1:50 PM EDT Routine YANIQUE DRAPER [address] [facility] [place] [address] Leyla Matt PA [address] [facility] [place] [address] documented as of this encounter Visit Diagnoses Not on filedocumented in this encounter Care Teams Ld Teacher Relationship Specialty Start Date End Date Unallocated, Yanique Louis MD [address] [place] [address] PCP - General Family Medicine 03/17/25 documented as of this encounter
--- OUTSIDE RECORDS SUMMARY | 2025-05-06 18:07 | XMS_ITS | Encounter Summary ---
Author Organization [facility] Address [address] [facility] [place] [address] Care Team Providers Care Mason Liner Name Role Phone Unallocated, Noms Provider Primary Care Provi zoltan Encounter Details Date Type Department Care Team (Late st Contact Info) Description 05/03/2025 Clinisync Result Encounter [facility] External Department Unsolicited [...] Info) Description 05/10/2025 1:50 PM EDT Routine [facility] Jaqueline OBGYN [address] [place] [address] Leyla Rapp PA [address] [place], [place] [address] documented as of this encounter Procedures Procedure Name Priority Date/Time Associated Diagnosis Comments US OB BPP W NON-STRESS 05/03/2025 4:24 PM EDT documented in this encounter Results * US OB BPP W NON-STRESS (05/03/2025 4:24 PM EDT) Anatomical Region Laterality Modality Other 05/03/2025 4:24 PM EDT Narrative 05/03/2025 4:26 PM EDT [address] [address] Ultrasound Report Signed Patient: MARGARET GIFFORD MR#: [id number] : 1995 Acct:[id number] Age/Sex: 29 / F ADM Date: 05/03/25 Loc: [facility] 250-[address]: Leyla Rapp Ordering Physician: Leyla Rapp Date of Service: 05/03/25 Procedure(s): US OB BPP w non-stress Accession Number(s): [id number] cc: Leyla Rapp; JOI LEWIS [place] [address] Patient Name: MARGARET GIFFORD MRN: [id number] date: 1995 Sex: F Assigned Patient Location: [facility] Current Patient Location: [facility] Accession/Order Number: [id number] Exam Date: 05/03/2025 16:23 Report Date: 05/03/2025 16:24 At the request of: LEYLA RAPP Procedure: US OB BPP w non-stress Biophysical profile. Reason for exam: Von Willebrand's disease COMPARISON: None TECHNIQUE: Transabdominal imaging of the gravid uterus was obtained. FINDINGS: The chainstitch sewing machine operator reports a BPP of 8 out of 8. ISABELL is normal at 17.4 cm. heart rate 131 bpm. US/US OB BPP w non-stress IMPRESSION: BPP 8 out of 8. Impression dictated by: Parrish Wise Jr., D.O. 05/03/2025 4:24 PM Dictation Location: [place] [address] Electronically authenticated by: [id number] Y Date: 05/03/2025 16:24 Dictated By: Parrish Wise M.D. Signed By: 05/03/25 1626 DD/ 23 TD/TT: Chef De Partie: Procedure Note Radiology, Radiologist, MD - 05/03/2025 The [place] [id number] Ultrasound Report Signed Patient: MARGARET GIFFORD MMR#: [id number] : 1995Acct:[id number] Age/Sex: 29 / FADM Date: 05/03/25 Loc: [facility] 250-[address]: Leyla Rapp Ordering Physician: Leyla Rapp Date of Service: 05/03/25 Procedure(s): US OB BPP w non-stress Accession Number(s): [id number] cc: Leyla Rapp; JOI LEWIS [place] [address] Patient Name: MARGARET GIFFORD MRN: [id number] date: 1995 Sex: F Assigned Patient Location: [facility] Current Patient Location: [facility] Accession/Order Number: [id number] Exam Date: 05/03/2025 16:23 Report Date: 05/03/2025 16:24 At the request of: LEYLA RAPP Procedure: US OB BPP w non-stress Biophysical profile. Reason for exam: Von Willebrand's disease COMPARISON: None TECHNIQUE: Transabdominal imaging of the gravid uterus was obtained. FINDINGS: The chainstitch sewing machine operator reports a BPP of 8 out of 8. ISABELL is normal at17.4 cm. heart rate 131 bpm. US/US OB BPP w non-stress IMPRESSION: BPP 8 out of 8. Impression dictated by: Parrish Wise Jr., D.O. 05/03/2025 4:24 PM Dictation Location: [place] [address] Electronically authenticated by: [id number] Y Date: 6:24 Dictated By: Parrish Wise M.D. Signed By:05/03/251625 DD/ 23 TD/TT: Chef De Partie: us Generic External Data Provider [facility] Final Result documented in this encounter Visit Diagnoses Not on filedocumented in this encounter Care Teams Mason Liner Relationship Specialty Start Date End Date Unallocated, Noms ProviderMD [address] [place] [address] PCP - General Family Medicine 03/17/25 documented as of this encounter
--- OUTSIDE RECORDS SUMMARY | 2025-05-06 18:07 | XMS_ITS | Encounter Summary ---
Author Organization [facility] Address [address] [place] [address] Care Team Providers Care Size Worker Name Role Phone Unallocated, Noms Provider Primary Care Provi zoltan Reason for Visit * Reason Onset Date Comments Med Refill 04/26/2025 Encounter Details Date Type Department Care Team (Late st Contact Info) Description 04/26/2025 Refill YANIQUE Parsons OBGYJulius [address] [facility] [address] [place] [address] Edilia Brady LPN [address] [place] [address] Second trimester ([facility]) Social History Tobacco Use Types Packs/Day Years [...] encounter Miscellaneous Notes * Telephone Encounter - Edilia Brady LPN - 04/26/2025 3:06 PM EDT Pt called needing a refill on her and a note of accomodations for work. I told her that I could do that for her. documented in this encounter Plan of Treatment Upcoming Encounters Date Type Department Care Team (Late st Contact Info) Description 05/10/2025 1:50 PM EDT Routine [facility]eline [facility] [address] [facility] [place] [address] Leyla Matt PA [address] [place] [address] documented as of this encounter Visit Diagnoses Diagnosis Second trimester ([facility]) state, incidental documented in this encounter Care Teams Size Worker Relationship Specialty Start Date End Date Unallocated, [place] [address] PCP - General Family Medicine 03/17/25 documented as of this encounter
--- OUTSIDE RECORDS SUMMARY | 2025-05-06 18:07 | XMS_ITS | Encounter Summary ---
Author Organization [facility] Address [address] [place] [address] Care Team Providers Care Asset Protection Assistant Name Role Phone Oliver Lozano MD Primary Care Provider [phone] Unallocated, Noms Provider Primary Care Provi zoltan Encounter Details Date Type Department Care Team (Late st Contact Info) Description 05/29/2024 Clinisync Result Encounter [facility] External Department Unsolicited Provider, Generic External Data Social History Tobacco Use Types Packs/Day Years Used Date Smoking Tobacco: Never Assessed Comments No Sex and Gender Information Value Date Recorded Sex Assigned at Not on file Legal Sex Female 7:25 PM EDT Gender Identity Not on file Sexual Orientation Not on file documented as of this encounter Plan of Treatment Upcoming Encounters Date Type Department Care Team (Late st Contact Info) Description 05/10/2025 1:50 PM EDT Routine YANIQUE aPrsons OBGYN [address] [place] [address] Leyla Matt PA [address] [facility] [address] [place], [place] [address] documented as of this encounter Procedures Procedure Name Priority Date/Time Associated Diagnosis Comments US PELVIS COMPLETE 05/29/2024 7: 14 AM EDT documented in this encounter Results * US PELVIS COMPLETE (05/29/2024 7:14 AM EDT) Anatomical Region Laterality Modality Other 05/29/2024 7:14 AM EDT Narrative 05/29/2024 7:18 AM EDT EXAMINATION: PELVIC ULTRASOUND 05/28/2024 9:17 pm TECHNIQUE: [...] by: Adonay Frank MD 05/29/24 Final result Procedure Note Radiology, Radiologist, MD - 05/29/2024 EXAMINATION: PELVIC ULTRASOUND 05/28/2024 9:17 pm TECHNIQUE: Transabdominal pelvic ultrasound using B-mode/conner scaled imaging andcolor flow Doppler was obtained. COMPARISON: None HISTORY: ORDERING SYSTEM PROVIDED HISTORY: Dyspareunia, female FINDINGS: Uterus: 7.9 cm x 4.3 cm x 3.1 cm Endometrial stripe: 0.7 cm Right ovary: 2.6 cm x 2.2 cm x 1.8 cm Left ovary: 2.2 cm x 2.4 cm x 3.0 cm UTERUS: Anteverted with appropriate size. Heterogeneous myometriumwith indistinct junctional margins and possible patchy fan-shaped posterior acoustic shadowing. No discrete myometrial lesion. Closed cervix. ENDOMETRIAL STRIPE: Normal size and appearance. RIGHT OVARY: Normal size. Normal degree of vascularity. LEFT OVARY: Normal size. Normal degree of vascularity. FREE FLUID: None visualized. IMPRESSION: 1. Myometrial heterogeneity that could be seen with adenomyosis,incompletely evaluated due to lack of transvaginal imaging. 2. Normal transabdominal sonographic appearance of the ovaries. Interpreted by: Adonay Frank MD Signed by: Adonay Frank MD 05/29/24 Final result us Generic External Data Provider [facility] Final Result documented in this encounter Visit Diagnoses Not on filedocumented in this encounter Care Teams Asset Protection Assistant Relationship Specialty Start Date End Date Oliver Lozano MD [address] [place] [address] PCP - General Internal Medicine 02/18/23 03/16/25 Unallocated, Noms Provider, [address] [place] [address] PCP - General Family Medicine 03/17/25 documented as of this encounter
--- OUTSIDE RECORDS SUMMARY | 2025-05-06 18:08 | XMS_ITS | Encounter Summary ---
Author Organization [facility] Address [address] [facility] [place] [address] Care Team Providers Care Second Shift Supervisor Name Role Phone Oliver Lozano MD Primary Care Provider [phone] Unallocated, Noms Provider Primary Care Provi zoltan Encounter Details Date Type Department Care Team (Late st Contact Info) Description 06/21/2024 Clinisync Result Encounter [facility] External Department Unsolicited Bety Serrato DO [address] [facility] [address] Joyce Parsons, [facility] Social History Tobacco Use Types Packs/Day Years [...] PM EDT Routine [facility] Jaqueline OBGYN [address] [place] [address] Leyla Matt PA [address] [facility] [address] [place], [place] [id number] documented as of this encounter Procedures Procedure Name Priority Date/Time Associated Diagnosis Comments ECG 12-LEAD 06/21/2024 11:35 AM EDT documented in this encounter Results * ECG 12-LEAD (06/21/2024 11:35 AM EDT) Anatomical Region Laterality Modality Other 06/21/2024 11:3 5 AM EDT Narrative 06/21/2024 10:50 [place] [address] Electrocardiograph Report Signed Patient: MARGARET GIFFORD MR#: [id number] : 1995 Acct:[id number] Age/Sex: 28 / F ADM Date: 06/21/24 Loc: PST Attending Dr: Bety Serrato D.O. Ordering Physician: Bety Serrato D.O. Date of Service: 06/21/24 Procedure(s): ECG 12 lead Accession Number(s): [id number] cc: [facility] Test Date: 2024-06-21 Pat Name: MARGARET GIFFORD Department: Room: - Gender: Female Derrick Follower: : 1995 Requested By: BETY SERRATO Order Number: [id number] Reading MD: KRISHNA EWING Measurements Intervals [place] Rate: 69 P: 25 RI: 155 QRS: 17 QRSD: 78 T: 19 QT: 360 QTc: 387 Interpretive Statements SINUS RHYTHM No previous ECG available for comparison Electronically Signed On 06-21-2024 22:49:48 EDT by KRISHNA EWING Dictated By: Krishna Ewing D.O. Signed By: 06/21/24 2250 DD/ 1135 TD/TT: Service Porter: Procedure Note Radiology, Radiologist, MD - 06/21/2024 [place] [address] Electrocardiograph Report Signed Patient: MARGARET GIFFORD MMR#: [id number] : 1995Acct:[id number] Age/Sex: 28 / FADM Date: 06/21/24 Loc: PST Attending Dr: Bety Serrato D.O. Ordering Physician: Bety Serrato D.O. Date of Service: 09/09/24 Procedure(s): ECG 12 lead Accession Number(s): [id number] cc: [facility] Test Date: 2024-06-21 Pat Name: MARGARET GIFFORD Department: Room: - Gender: Female Derrick Follower: : 1995 Requested By: BETY SERRATO Order Number: [id number] Reading MD: KRISHNA EWING Measurements Intervals [place] Rate: 69 P: 25 RI: 155 QRS: 17 QRSD: 78 T: 19 QT: 360 QTc: 387 Interpretive Statements SINUS RHYTHM No previous ECG available for comparison Electronically Signed On 06-21-2024 22:49:48 EDT by KRISHNA EWING Dictated By: Krishna Ewing D.O. Signed By:06/21/24 225 DD/ 1135 TD/TT: Service Porter: us Bety Serrato DO [facility] Final Result documented in this encounter Visit Diagnoses Not on filedocumented in this encounter Care Teams Second Shift Supervisor Relationship Specialty Start Date End Date Oliver Lozano MD [address] [place] [address] PCP - General Internal Medicine 02/18/23 03/16/25 Unallocated, Noms Provider, [address] [place] [address] PCP - General Family Medicine 03/17/25 documented as of this encounter
--- OUTSIDE RECORDS SUMMARY | 2025-05-06 18:08 | XMS_ITS | Encounter Summary ---
Author Organization [facility] Address [address] [place] [address] Care Team Providers Care Application Project Leader Name Role Phone Oliver Lozano MD Primary Care Provider [phone] Unallocated, Noms Provider Primary Care Provi zoltan Encounter Details Date Type Department Care Team (Late Contact Info) Description 06/01/2024 Abstract YANIQUE DRAPER [address] [facility] [facility] [place] [address] Jung Serrato DO [address] [facility] [address] Joyce Parsons, [facility] Social History Tobacco Use Types Packs/Day Years [...] 1:50 PM EDT Routine YANIQUE DRAPER [address] [facility] [place] [address] Leyla Matt PA [address] [facility] [address] [place], [facility] documented as of this encounter Visit Diagnoses Not on filedocumented in this encounter Care Teams Application Project Leader Relationship Specialty Start Date End Date Oliver Lozano MD [address] [place] [address] PCP - General Internal Medicine 02/18/23 03/16/25 Unallocated, Noms Provider, [address] [place] [address] PCP - General Family Medicine 03/17/25 documented as of this encounter
--- OUTSIDE RECORDS SUMMARY | 2025-05-06 18:08 | XMS_ITS | Encounter Summary ---
Author Organization [facility] Address [address] [place] [address] Care Team Providers Care Injury Prevention Coordinator Name Role Phone Oliver Lozano MD Primary Care Provider [phone] Unallocated, Noms Provider Primary Care Provi zoltan Encounter Details Date Type Department Care Team (Late Contact Info) Description 06/28/2024 Abstract YANIQUE DRAPER [address] [place] [address] Jung Serrato DO [address] [facility] [address] Joyce Parsons, [facility] Social History Tobacco Use Types Packs/Day [...] 1:50 PM EDT Routine YANIQUE DRAPER [address] [place] [address] Leyla Matt PA [address] [facility] [address] [place], [facility] documented as of this encounter Visit Diagnoses Not on filedocumented in this encounter Care Teams Injury Prevention Coordinator Relationship Specialty Start Date End Date Oliver Lozano MD [address] [place] [address] PCP - General Internal Medicine 02/18/23 03/16/25 Unallocated, Noms Provider, [address] [place] [address] PCP - General Family Medicine 03/17/25 documented as of this encounter
--- OUTSIDE RECORDS SUMMARY | 2025-05-06 18:08 | XMS_ITS | Encounter Summary ---
Author Organization [facility] Address [address] [place] [address] Care Team Providers Care Historical Archeologist Name Role Phone Oliver Lozano MD Primary Care Provider [phone] Unallocated, Noms Provider Primary Care Provi zoltan Encounter Details Date Type Department Care Team (Late st Contact Info) Description 08/20/2023 Clinisync Result Encounter NOMS External Department Unsolicited [...] PM EDT Routine NOMMelody Parsons OBGYN [address] [place] [address] Leyla Matt PA [address] [facility] [address] [place], [place] [address] documented as of this encounter Procedures Procedure Name Priority Date/Time Associated Diagnosis Comments US NON OB TRANSVAGINAL 08/20/2023 7:59 AM EST documented in this encounter Results * US NON OB TRANSVAGINAL (08/20/2023 7:59 AM EST) Anatomical Region Laterality Modality Other 08/20/2023 7:59 AM EST Narrative 08/20/2023 8:03 AM EST UTERUS: Homogenous appearing anteverted uterus, WNL ENDO: measures 5 mm RT. OVARY: WNL LT. OVARY: there is a hyperechoic area lateral AND superior to ovary, suggestive of edema, or collection of blood, no blood flow into area, minimal blood flow noted in ovary No free fluid Interpreted by: Gisela Machado DO Signed by: Gisela Machado DO 08/20/23 Final result Procedure Note Radiology, Radiologist, MD - 08/20/2023 UTERUS: Homogenous appearing anteverted uterus, WNL ENDO: measures 5 mm RT. OVARY: WNL LT. OVARY: there is a hyperechoic area lateral AND superior to ovary,suggestive of edema, or collection of blood, no blood flow into area,minimal blood flow noted in ovary No free fluid Interpreted by: Gisela Machado DO Signed by: Gisela Machado DO 08/20/23 Final result us Generic External Data Provider [facility] Final Result documented in this encounter Visit Diagnoses Not on filedocumented in this encounter Care Teams Historical Archeologist Relationship Specialty Start Date End Date Oliver Lozano MD [address] [place] [address] PCP - General Internal Medicine 02/18/23 03/16/25 Unallocated, Noms Provider, [address] [place] [address] PCP - General Family Medicine 03/17/25 documented as of this encounter
--- OUTSIDE RECORDS SUMMARY | 2025-05-06 18:08 | XMS_ITS | Encounter Summary ---
Author Organization [facility] Address [address] [place] [address] Care Team Providers Care Poultice Machine Operator Name Role Phone Oliver Lozano MD Primary Care Provider [phone] Unallocated, Noms Provider Primary Care Provi zoltan Encounter Details Date Type Department Care Team (Late st Contact Info) Description 06/10/2024 Clinisync Result Encounter NOMS External Department Unsolicited Jung Serrato DO [address] [facility] [address] Joyce Parsons, [facility]11 Social History Tobacco Use Types Packs/Day Years [...] PM EDT Routine [facility]S Jaqueline OBGYN [address] [facility] [place] [address] Leyla Matt PA [address] [facility] [address] [place], [place] [id number] documented as of this encounter Procedures Procedure Name Priority Date/Time Associated Diagnosis Comments MRI BRAIN W WO CONTRAST 06/10/2024 10:29 PM EDT documented in this encounter Results * MRI BRAIN W WO CONTRAST (06/10/2024 10:29 PM EDT) Anatomical Region Laterality Modality Other 06/10/2024 10:2 9 PM EDT Narrative 06/10/2024 10:33 PM EDT EXAMINATION: MRI OF THE BRAIN WITHOUT AND WITH CONTRAST 06/09/2024 12:35 pm TECHNIQUE: Multiplanar multisequence MRI of the head/brain was performed without and with the administration of intravenous contrast. COMPARISON: None. HISTORY: ORDERING SYSTEM PROVIDED HISTORY: Other specified abnormal findings of blood assistant professor of biochemistry PROVIDED HISTORY: STAT Creatinine as needed:->No FINDINGS: [...] by: Tristen Valdes MD 06/10/24 Final result Procedure Note Radiology, Radiologist, MD - 06/10/2024 EXAMINATION: MRI OF THE BRAIN WITHOUT AND WITH CONTRAST 06/09/2024 12:35 pm TECHNIQUE: Multiplanar multisequence MRI of the head/brain was performed withoutand with the administration of intravenous contrast. COMPARISON: None. HISTORY: ORDERING SYSTEM PROVIDED HISTORY: Other specified abnormal findings ofblood assistant professor of biochemistry PROVIDED HISTORY: STAT Creatinine as needed:->No FINDINGS: INTRACRANIAL STRUCTURES/VENTRICLES: There is no acute infarct. No mass effect or midline shift. No evidence of an acute intracranialhemorrhage. The ventricles and sulci are normal in size and configuration. The sellar/suprasellar regions appear unremarkable. Pituitary gland measures1.4 x 0.5 x 0.5 cm. No focal lesions are seen. Pituitary stalk is normalin thickness. The normal signal voids within the major intracranialvessels appear maintained. No abnormal focus of enhancement is seen within thebrain. ORBITS: The visualized portion of the orbits demonstrate no acuteabnormality. SINUSES: The visualized paranasal sinuses and mastoid air cellsdemonstrate no acute abnormality. BONES/SOFT TISSUES: The bone marrow signal intensity appears normal. Thesoft tissues demonstrate no acute abnormality. IMPRESSION: 1. No acute intracranial abnormality. 2. Normal pituitary gland. Interpreted by: Tristen Valdes MD Signed by: Tristen Valdes MD 06/10/24 Final result Jung Serrato DO [facility] Final Result documented in this encounter Visit Diagnoses Not on filedocumented in this encounter Care Teams Poultice Machine Operator Relationship Specialty Start Date End Date Oliver Lozano MD [address] [facility] [address] [place] [address] PCP - General Internal Medicine 02/18/23 03/16/25 Unallocated, Noms Provider, [address] [place] [address] PCP - General Family Medicine 03/17/25 documented as of this encounter
--- OUTSIDE RECORDS SUMMARY | 2025-05-06 18:08 | XMS_ITS | Clinical Summary ---
Author Organization [facility] Address [address] [place] [address] Care Team Providers Care Vc++ Developer Name Role Phone Geneva Ch DO Primary Care Pr ovider Allergies No known active allergies Medications lansoprazole (PREVACID) 30 mg capsule Take 1 capsule by mouth once daily. 0 01/11/2013 Active lisinopril 2.5 mg tablet Take 2.5 mg by mouth once daily. Active TOPIRAMATE (TOPAMAX ORAL) Take 100 mg by mouth. Active Desmopressin Acetate (STIMATE) 150 mcg/spray Pierron Use 1 [place] in the nose once daily as needed. 2.5 mL 6 07/26/2013 Active Desmopressin Acetate (STIMATE) 150 mcg/spray spry Use 1 [place] in the nose as needed. 2.5 mL 3 05/17/2014 Active Desmopressin Acetate (STIMATE) 150 mcg/spray (0.1 mL) spry Use 1 [place] in the nose as needed. 2.5 mL 0 12/05/2015 Active Active Problems Problem Noted Date Diagnosed Date Aortic stenosis 01/20/2013 Migraine headache 01/20/2013 GERD (gastroesophageal reflux disease) 3 Von Willebrand disease Family History Medical History Relation Comments Cancer Maternal Grandmother Relation Status Comments Maternal Grandmother Social History Tobacco Use Types Packs/Day Years Used Date Smoking Tobacco: Never Smokeless Tobacco: Never Alcohol Use Standard Drinks/Week Comments Not Asked 0 (1 standard drink = 0.6 oz pur e alcohol) Comments Unknown Sex and Gender Information Value Date Recorded Sex Assigned at Not on file Legal Sex Female 2:43 PM EDT Gender Identity Not on file Sexual Orientation Not on file Last Filed Vital Signs Vital Sign Reading Time Taken Comments Blood Pressure 103/66 05/17/2014 1:00 PM EDT Pulse 66 05/17/2014 1:00 PM EDT Temperature 36.6 C (97.8 F) 05/17/2014 1:00 PM EDT Respiratory Rate - - Oxygen Saturation - - Inhaled Oxygen Concentration - - Weight 83.1 kg (183 lb 4.8 oz) 05/17/2014 12:58 PM EDT Height 157.5 cm (5' 2 ) 05/17/2014 1:00 PM EDT Body Mass Index 33.53 05/17/2014 12:58 PM EDT Plan of Treatment Health Maintenance Due Date Last Done Comments Anxiety Screening 2012 Depression Screening 2012 HIV Screening 2012 Hepatitis C Screening 2012 DTaP,Tdap,Td Vaccine (1 - Tdap) 2013 Hepatitis B Vaccine (1 of 3 - 19+ 3-dose series) 11/10 Cervical Cancer Screening 2015 Covid-19 Vaccine (2023- season) 2024 Influenza Vaccine (#1) 2025 Insurance Care Teams Vc++ Developer Relationship Specialty Start Date End Date Geneva Ch DO PCP - General Pediatrics 12/28/12
--- OUTSIDE RECORDS SUMMARY | 2025-05-06 18:08 | XMS_ITS | Patient Health Record ---
Author Organization [facility] [place] Address [address] [place] [address] Care Team Providers Care Wagon Driver Salesperson Name Role Phone Oliver Lozano MD Primary Care Provider Reba Chicas Unavailable [phone] Reason For Referral No Information Encounters Encounter Location Date Provider Diagnosis [facility] [address] [place] [address] 06/22/2024 Reba Tovar Plan Of Treatment No Information
--- OUTSIDE RECORDS SUMMARY | 2025-05-06 18:08 | XMS_ITS | Clinical Summary ---
Author Organization [facility] Address [address] [place] [address] Care Team Providers Care School Coordinator Name Role Phone Oliver Lozano MD Primary Care Provider [phone] Allergies Active Allergy Reactions Criticality Noted Date Comments Ibuprofen Other 12/27/2024 Medications no115/iron/folic acid ( 19 ORAL) Take by mouth. Active acyclovir (Zovirax) 400 mg tablet Take 400 mg by mouth if needed. Active Active Problems Problem Noted Date Diagnosed Date 30 weeks gestation of 05/03/2025 Bicuspid aortic valve 12/27/2024 Aortic valve regurgitation due to aortic dilatio n 12/27/2024 12 weeks gestation of 12/27/2024 Aortic regurgitation due to bicuspid aortic valv e 05/04/2018 Aortic stenosis due to bicuspid aortic valve Von Willebrand disease 04/25/2017 Hypertension 05/26/2013 Comments Yes Encounters Date Type Department Care Team Description 05/02/2025 2:00 PM EDT Office Visit [facility] [address] [place] [phone] Blayne Smalls MD Aortic regurgitation due to bicuspid aortic valve (Primary Dx); Aortic stenosis due to bicuspid aortic valve; Aortic valve regurgitation due to aortic dilation; Von Willebrand disease (CMS/HCC); 30 weeks gestation of 02/16/2025 Telephone [facility] [address] [place] [address] Aliya Siddiqui RN from Last 3 Months Social History Tobacco Use Types Packs/Day Years [...] Mass Index 34.37 05/02/2025 2:14 PM EDT Plan of Treatment Upcoming Encounters Date Type Department Care Team (Late st Contact Info) Description 10/20/2025 11:00 AM EST Office Visit [facility] [address] [place] [address] Blayne Smalls MD [address] [place] [address] Health Maintenance Due Date Last Done Comments Depression Screening 2006 Varicella Vaccines (1 of 2 - 13+ 2-dose series) 09/11/2009 Pneumococcal Vaccine: Pediatrics (0 to 5 Years) and At-Risk Patients (6 to 64 Years) (1 of 2 - PCV) 2013 Adult Tetanus 2016 04/28/2007 COVID-19 Vaccine ( - season) 2024 HPV/Cotest 2024 Influenza Vaccine (#1) 2025 2, 07/05/2011, 07/18/2010, Additional history exists Cervical Cancer Screening 02/10/2028 Pap Smear 02/10/2028 02/09/2025, 08/18/2018 Zoster Vaccines (1 of 2) 2044 HIB Vaccines Completed 04/05/1996, 10/1994, 03/18/1995, Additional history exists IPV Vaccines Completed 05/04/1999, 10/1994, 03/18/1995, Additional history exists HPV Vaccines Completed 08/21/2007, 04/12, 02/16/2007 Meningococcal Vaccine Completed 06/10/2012, 007 Meningococcal B Vaccine Aged Out No l onger eligible based on patient's age to complete this topic Rotavirus Vaccines Aged Out No longer eligible based on patient's age to complete this topic Insurance [facility] [place] Case Care Teams School Coordinator Relationship Specialty Start Date End Date Oliver Lozano MD [address] [place] [address] PCP - General Internal Medicine 12/27/24
--- OUTSIDE RECORDS SUMMARY | 2025-05-06 18:08 | XMS_ITS | Clinical Summary ---
Author Organization [facility] Address [address] [place] [address] Care Team Providers Care Conservation Agent Name Role Phone Unallocated, Noms Provider Primary Care Provi zoltan Allergies Active Allergy Reactions Criticality Noted Date Comments Ibuprofen Medium 09/16/2015 Bruising t/o the body Other Reaction(s): Other Nsaids 05/11/2024 Other Reaction(s): Unknown Medications magnesium oxide (Mag-Ox) 400 MG tabletIndicatio ns: headache in second trimester ([facility]) Take 1 tablet (400 mg) by mouth Daily 30 tablet 11 5 02/29/20 26 Active Vit-DSS-Fe Fum-FA ( 19) tabletIndicatio ns:Second trimester ([facility]) Take 1 tablet by mouth Daily 30 tablet 11 5 04/26/20 26 Active Vit-Fe Fumarate-FA ( 19 PO) Take 1 tablet by mouth Daily 04/26/20 25 Discontinu ed(Reorder ) Active Problems Problem Noted Date Diagnosed Date Aortic valve stenosis 01/06/2025 14 weeks gestation of ([facility]) 2024 Second trimester ([facility]) 01/06/2025 Von Willebrand disease 01/06/2025 Estimated Date of Delivery Comme nts Yes 07/06/2025 Based on last me nstrual period of 09/29/2024 Encounters Date Type Department Care Team Description 05/03/2025 Clinisync Result Encounter [facility] External Department Unsolicited Provider, Generic External Data 04/26/2025 Refill [facility] [address] [place] [address] Edilia Brady LPN Second trimester ([facility]) 04/25/2025 Orders Only [facility] [address] [place] [phone] Unallocated, Noms MD Heriberto 04/22/2025 Clinisync Result Encounter NOMS External Department Unsolicited Provider, Generic External Data 04/22/2025 Telephone [facility] [address] [place] [address] Sanjana Monaco LPN 04/21/2025 Telephone [facility] [address] [place] [address] Apple Ambrocio MA 04/19/2025 11:00 AM EDT Routine [facility] VÁSQUEZGYN [address] [place] [phone] Leyla Rapp PA 28 weeks gestation of ([facility]); Von Willebrand disease ([facility]); Aortic valve stenosis, etiology of cardiac valve disease unspecified 04/19/2025 Bamboo flowsheet [facility] [address] [place] [address] Leyla Rapp PA 03/24/2025 Abstract [facility] [address] [facility] [place] [phone] Apple Ambrocio MA 03/22/2025 Clinisync Result Encounter NOMS External Department Unsolicited Bety Serrato DO 03/14/2025 1:30 PM EDT Routine [facility] [address] [facility] [address] Bety Serrato DO Second trimester ([facility]); 23 weeks gestation of ([facility]); Diabetes mellitus screening 03/14/2025 Abstract [facility] [address] [facility] [place] [address] Bety Serrato, DO 03/14/2025 Abstract [facility] [address] [facility] [place] [phone] Bety Serrato, DO 03/14/2025 Telephone [facility] [address] [facility] [facility] [place] [phone] Bety Serrato, DO 02/28/2025 Telephone [facility] [address] [place] [address] Edilia Brady LPN 02/18/2025 Orders Only [facility] [address] [facility] [facility] [place] [address] Apple Ambrocio MA 02/18/2025 Abstract [facility] [facility] [address] [facility] [place] [address] Bety Serrato, DO 02/09/2025 3:00 PM EDT Routine [facility] [address] [facility] [place] [address] Aga Shore NP 19 weeks gestation of ([facility]); Second trimester ([facility]); Well woman exam with routine gynecological exam; Screening, , for anatomic survey ([facility]); Vaginal discharge; Exposure to STD 02/09/2025 Clinisync Result Encounter [facility]OMS External Department Unsolicited Provider, Generic External Data 02/09/2025 External Result Encounter [facility]OMS External Department Unsolicited Aga Shore NP 02/09/2025 Bamboo flowsheet [facility] [facility] [address] [place] [address] Aga Shore NP from Last 3 Months Family History Medical History Relation Name Comments high blood pressure Father liver failure Father Polycystic ovary syndrome Sister high blood pressure Sister Relation Name Status Comments Father Mother Alive Sister Social History Tobacco Use Types Packs/Day Years [...] Sign Reading Time Taken Comments Blood Pressure 122/74 04/19/2025 11:45 AM EDT Pulse - - Temperature - - Respiratory Rate - - Oxygen Saturation - - Inhaled Oxygen Concentration - - Weight 90.7 kg (200 lb) 04/19/2025 11:45 AM EDT Height 157.5 cm (5' 2 ) 06/02/2024 1:03 PM EDT Body Mass Index 36.58 06/02/2024 1:03 PM EDT Plan of Treatment Upcoming Encounters Date Type Department Care Team (Late st Contact Info) Description 05/10/2025 1:50 PM EDT Routine [facility] [address] [place] [address] Leyla Rapp PA [address] [place] [address] Health Maintenance Due Date Last Done Comments HPV/Cotest 2024 Influenza Vaccine (#1) 2025 2, 07/05/2011, 07/18/2010, Additional history exists Cervical Cancer Screening 02/10/2028 Pap Smear 02/10/2028 02/09/2025, 08/18/2018 Procedures Procedure Name Priority Date/Time Associated Diagnosis Comments US OB BPP W NON-STRESS 05/03/2025 4:24 PM EDT US OB GROWTH 04/22/2025 4:39 PM EDT US OB SCAN FOR GROWTH Routine 04/22/2025 9:24 AM EDT POCT URINALYSIS DIPSTICK Routine 04/19/2025 11:47 AM EDT 28 weeks gestation of ([facility]) MHPT GLUCOSE MISAEL SCR 50G Routine 03/22/2025 10:33 AM EDT ALL CBC WITH AUTO DIFF Routine 03/22/2025 10:33 AM EDT POCT URINALYSIS DIPSTICK Routine 03/14/2025 1:51 PM EDT Second trimester ([facility]) 23 weeks gestation of ([facility]) RECURRENT VAGINITIS (HTRX) Routine 02/09/2025 4:38 PM EDT POCT URINALYSIS DIPSTICK Routine 02/09/2025 3:49 PM EDT 19 weeks gestation of ([facility]) Second trimester ([facility]) IGP,APTIMA HPV,AGE GDLN Routine 02/09/2025 3:33 PM EDT PAP SMEAR Routine 02/09/2025 12:00 AM EDT from Last 3 Months Results * US OB BPP W NON-STRESS (05/03/2025 4:24 PM EDT) Anatomical Region Laterality Modality Other 05/03/2025 4:24 PM EDT Narrative 05/03/2025 4:26 [place] [address] Ultrasound Report Signed Patient: EDGAR ORTIZ MR#: [id number] : 1995 Acct:[id number] Age/Sex: 29 / F ADM Date: 05/03/25 Loc: [facility] 250-[address]: Leyla Rapp Ordering Physician: Leyla Rapp Date of Service: 05/03/25 Procedure(s): US OB BPP w non-stress Accession Number(s): [id number] cc: Leyla Rapp; JIO LEWIS [address] [address] Patient Name: EDGAR ORTIZ MRN: [id number] date: 1995 Sex: F Assigned Patient Location: [facility] Current Patient Location: [facility] Accession/Order Number: [id number] Exam Date: 05/03/2025 16:23 Report Date: 05/03/2025 16:24 At the request of: LEYLA RAPP Procedure: US OB BPP w non-stress Biophysical profile. Reason for exam: Von Willebrand's disease COMPARISON: None TECHNIQUE: Transabdominal imaging of the gravid uterus was obtained. FINDINGS: The bottle caser reports a BPP of 8 out of 8. ISABELL is normal at 17.4 cm. heart rate 131 bpm. US/US OB BPP w non-stress IMPRESSION: BPP 8 out of 8. Impression dictated by: Parrish Wise Jr., D.O. 05/03/2025 4:24 PM Dictation Location: [place] [address] Electronically authenticated by: [id number] Y Date: 05/03/2025 16:24 Dictated By: Parrish Wise M.D. Signed By: 05/03/25 1626 DD/ 23 TD/TT: Field Crop Ii Farmworker: Procedure Note Radiology, Radiologist, - 05/03/2025 [place] [address] Ultrasound Report Signed Patient: EDAGR ORTIZ MMR#: [id number] : 1995Acct:[id number] Age/Sex: 29 / FADM Date: 05/03/25 Loc: [facility] 250-[address]: Leyla Rapp Ordering Physician: Leyla Rapp Date of Service: 05/03/25 Procedure(s): US OB BPP w non-stress Accession Number(s): [id number] cc: Leyla Rapp; JOI LEWIS [place] [address] Patient Name: EDGAR ORTIZ MRN: [id number] date: 1995 Sex: F Assigned Patient Location: [facility] Current Patient Location: [facility] Accession/Order Number: [id number] Exam Date: 05/03/2025 16:23 Report Date: 05/03/2025 16:24 At the request of: LEYLA RAPP Procedure: US OB BPP w non-stress Biophysical profile. Reason for exam: Von Willebrand's disease COMPARISON: None TECHNIQUE: Transabdominal imaging of the gravid uterus was obtained. FINDINGS: The bottle caser reports a BPP of 8 out of 8. ISABELL is normal at17.4 cm. heart rate 131 bpm. US/US OB BPP w non-stress IMPRESSION: BPP 8 out of 8. Impression dictated by: Parrish Wise Jr., D.O. 05/03/2025 4:24 PM Dictation Location: [place] [address] Electronically authenticated by: [id number] Y Date: 6:24 Dictated By: Parrish Wise M.D. Signed By:05/03/256 DD/ 1624 TD/TT: Field Crop Ii Farmworker: us Generic External Data Provider [facility] IMAGING Final Result * US OB GROWTH (04/22/2025 4:39 PM EDT) Anatomical Region Laterality Modality Other 04/22/2025 4:39 PM EDT Narrative 04/22/2025 4:41 [place] [address] Ultrasound Report Signed Patient: EDGAR ORTIZ MR#: [id number] : 1995 Acct:[id number] Age/Sex: 29 / F ADM Date: 04/22/25 Loc: US Attending Dr: Leyla Rapp Ordering Physician: Leyla Rapp Date of Service: 04/22/25 Procedure(s): US OB growth Accession Number(s): [id number] cc: Leyla Rapp; JOI LEWIS [place] [id number] Patient Name: EDGAR ORTIZ MRN: [facility]:[id number] date: 1995 Sex: F Assigned Patient Location: Current Patient Location: US Accession/Order Number: [id number] Exam Date: 04/22/2025 16:36 Report Date: 04/22/2025 [...] Lovett M.D. 04/22/2025 4:39 PM Dictation Location: [place] [address] Electronically authenticated by: [id number] Y Date: 04/22/2025 16:39 Dictated By: Tyson Lovett M.D. Signed By: 04/22/25 1641 DD/ 1639 TD/TT: Field Crop Ii Farmworker: Procedure Note Radiology, Radiologist, MD - 04/22/2025 [place] [address] Ultrasound Report Signed Patient: EDGAR ORTIZ MMR#: [id number] : 1995Acct:[id number] Age/Sex: 29 / FADM Date: 04/22/25 Loc: US Attending Dr: Leyla Rapp Ordering Physician: Leyla Rapp Date of Service: 04/22/25 Procedure(s): US OB growth Accession Number(s): [id number] cc: Leyla Rapp; JOI LEWIS [place] [id number] Patient Name: EDGAR ORTIZ MRN: [id number] date: 1995 Sex: F Assigned Patient Location: US Current Patient Location: Accession/Order Number: [id number] Exam Date: 04/22/2025 16:36 Report Date: 04/22/2025 [...] Lovett M.D. 04/22/2025 4:39 PM Dictation Location: [place] [address] Electronically authenticated by: [id number] Y Date: 6:39 Dictated By: Tyson Lovett M.D. Signed By:04/22/25 1641 DD/ 1639 TD/TT: Field Crop Ii Farmworker: us Generic External Data Provider [facility] IMAGING Final Result * US OB SCAN FOR GROWTH (04/22/2025 9:24 AM EDT) Anatomical Region Laterality Modality Body Ultrasound us Noms Provider Unallocated MD MURCIA OB US PROCEDURE S Final Result * POCT urinalysis dipstick manually resulted (04/19/2025 11:47 AM EDT) Only the most recent of3 resultswithin the time period is included. Color, UA Yellow Clarity, UA Clear Glucose, UA Negative Negative - 2000(110) ++++ mg/dL Bilirubin, UA Negative Negative - 4(70) +++ mg/dL Ketones, UA Negative Negative - 160(16) ++++ mg/dL Spec Grav, UA 1.010 1 - 1.03 Blood, UA Negative Negative - 50 Stanford/mcL pH, UA 6.0 5 - 9 Protein, UA Negative Negative - 1999(20) ++++ mg/dL Urobilinogen, UA 0.2 0.2 - 12 mg/dL Leukocytes, UA Negative Negative - 500+++ Yoni/mcL Nitrite, UA Negative Negative - Positive Urine 04/19/2025 11:4 7 AM EDT us Leyla JURADO POINT OF CARE TEST ENTER/EDIT OR DERABLES Final Result * MHPT GLUCOSE MISAEL SCR 50G (03/22/2025 10:33 AM EDT) MHPT GLU ADMINISTERED VIA Glucola PT MHPT GLUCOSE,MISAEL SCR 50G 119 70 - 135 mg/dL MHPT 03/22/2025 10:3 3 AM EDT 03/22/2025 10:34 AM EDT Narrative CLINISYNC - 03/22/2025 12:44 PM EDT Original Ordering Provider: BETY MCNALLY us Bety Serrato DO CLINISYNC Final Result CLINISYNC PT * (ABNORMAL) ALL CBC WITH AUTO DIFF (03/22/2025 10:33 AM EDT) MHPT WBC COUNT 9.8 3.5 - 11.3 k/uL MHPT MHPT RBC COUNT 4.16 3.95 - 5.11 m/uL MHPT MHPT HEMOGLOBIN 11.7(L) 11.9 - 15.1 g/dL MHPT MHPT HEMATOCRIT 35.1(L) 36.3 - 47.1 % MHPT MHPT MCV 84.4 82.6 - 102.9 fL MHPT MHPT MCH 28.1 25.2 - 33.5 pg MHPT MHPT MCHC 33.3 28.4 - 34.8 g/dL MHPT MHPT RDW 13.1 11.8 - 14.4 % MHPT MHPT PLATELET COUNT 194 138 - 453 k/uL MHPT MHPT MPV 11.7 8.1 - 13.5 fL MHPT MHPT NRBC AUTOMATED 0.0 0.0 per 100 WBC MHPT 03/22/2025 10:3 3 AM EDT 03/22/2025 10:34 AM EDT Narrative ALEXANDRONC - 03/22/2025 12:22 PM EDT Original Ordering Provider: BETY MCNALLY us Generic External Data Provider GREGG garcia Result GREGG PT * RECURRENT VAGINITIS (HTRX) (02/09/2025 4:38 PM EDT) ATOPOBIUM VAGINAE 0.000 19.961 - 24.689 ppm 02/11/2025 6:03 AM EDT [facility] ATOPOBIUM VAGINAE Not Detected 19.961 - 24.689 ppm 02/11/2025 6:03 AM EDT [facility] BV[facility] 2,3 (BACTERIAL VAGINOSIS ASSOCIATED BACTERIA 2, 3); MOBILUNCUS SPP 0.000 19.961 - 24.689 ppm 02/11/2025 6:03 AM EDT [facility] BVAB 2,3 (BACTERIAL VAGINOSIS ASSOCIATED BACTERIA 2, 3); MOBILUNCUS SPP Not Detected 19.961 - 24.689 ppm 02/11/2025 6:03 AM EDT [facility] PATRICE ALBICANS, PARAPSILOSIS, TROPICALIS 0.000 19.961 - 30.770 ppm 02/11/2025 6:03 AM EDT [facility] PATRICE ALBICANS, PARAPSILOSIS, TROPICALIS Not Detected 19.961 - 30.770 ppm 02/11/2025 6:03 AM EDT [facility] PATRICE GLABRATA 0.000 23.000 - 32.138 ppm 02/11/2025 6:03 AM EDT [facility] PATRICE GLABRATA Not Detected 23.000 - 32.138 ppm 02/11/2025 6:03 AM EDT [facility] PATRICE KRUSEI 0.000 23.000 - 32.271 ppm 02/11/2025 6:03 AM EDT [facility] PATRICE KRUSEI Not Detected 23.000 - 32.271 ppm 02/11/2025 6:03 AM EDT [facility] CHLAMYDIA TRACHOMATIS 0.000 23.000 - 31.467 ppm 02/11/2025 6:03 AM EDT [facility] CHLAMYDIA TRACHOMATIS Not Detected 23.000 - 31.467 ppm 02/11/2025 6:03 AM EDT [facility] GARDNERELLA VAGINALIS 0.000 19.961 - 24.689 ppm 02/11/2025 6:03 AM EDT [facility] GARDNERELLA VAGINALIS Not Detected 19.961 - 24.689 ppm 02/11/2025 6:03 AM EDT [facility] MEGASPHAERA (TYPES 1, 2) 0.000 19.961 - 24.689 ppm 02/11/2025 6:03 AM EDT [facility] MEGASPHAERA (TYPES 1, 2) Not Detected 19.961 - 24.689 ppm 02/11/2025 6:03 AM EDT [facility] NEISSERIA GONORRHOEAE 0.000 23.000 - 32.117 ppm 02/11/2025 6:03 AM EDT [facility] NEISSERIA GONORRHOEAE Not Detected 23.000 - 32.117 ppm 02/11/2025 6:03 AM EDT [facility] TRICHOMONAS VAGINALIS 0.000 23.000 - 32.119 ppm 02/11/2025 6:03 AM EDT [facility] TRICHOMONAS VAGINALIS Not Detected 23.000 - 32.119 ppm 02/11/2025 6:03 AM EDT [facility] MYCOPLASMA GENITALIUM 0.000 19.961 - 24.689 ppm 02/11/2025 6:03 AM EDT [facility] MYCOPLASMA GENITALIUM Not Detected 19.961 - 24.689 ppm 02/11/2025 6:03 AM EDT [facility] Tissue 02/09/2025 4:38 PM EDT 02/11/2025 1:38 AM EDT us Aga Shore PRICING CONSULTANT LAB BLOOD ORDERABLES Final Re sult [facility] [address] [place] [address] * IGP,APTIMA HPV,AGE GDLN (02/09/2025 3:33 PM EDT) AGE GDLN ACOG TESTING Note . [facility] Comment: TESTS RESULT FLAG UNITS REF RANGE LAB Clinician Provided Cytology Information Source.............Cervix Other.............. No. of containers..01 ThinPrep Vial Age Algo ACOG Cecille... 30-65 01 FLAG LEGEND: L-Low Normal,H-High Normal,LL-Alert Low,HH-Alert High <-Panic Low,>-Panic High,A-Abnormal,AA-Critical Abnormal Performed at: 01 =G [facility] [place] [address] [place] [address] Jasmine Drew MD, IGP, APTIMA HPV, RFX 16/18,45 Note . [facility] Comment: TESTS RESULT FLAG UNITS REF RANGE LAB DIAGNOSIS: 02 NEGATIVE FOR INTRAEPITHELIAL LESION OR MALIGNANCY. Specimen adequacy: 02 Satisfactory for evaluation. No endocervical component is identified. An endocervical component is not commonly seen in the patient. Performed by: Priya Sanchez, Wiener Packer ([facility]) . 02 Note: Note 02 The Pap smear is a screening test designed to aid in the detection of premalignant and malignant conditions of the uterine cervix. It is not a diagnostic procedure and should not be used as the sole means of detecting cervical cancer. Both false-positive and false-negative reports do occur. Test Methodology: Note 02 This liquid based ThinPrep(R) pap test was screened with the use of an image guided system. HPV Genotype Reflex Note 02 Criteria not met, HPV Genotype not performed. FLAG LEGEND: L-Low Normal,H-High Normal,LL-Alert Low,HH-Alert High <-Panic Low,>-Panic High,A-Abnormal,AA-Critical Abnormal Performed at: 02 WB [facility] [place] [address] [place] [place] [address] Jasmine Drew MD, HPV APTIMA Negative Negative [facility] Comment: This nucleic acid amplification test detects fourteen high- risk HPV types (16,18,31,33,35,39,45,51,52,56,58,59,66,68) without differentiation. Performed at: = - [address] [id number] [employer] Supervisor: Jasmine Drew MD, Phone: [phone] Performed at: [address] [id number] [employer] Supervisor: Jasmine Drew MD, Phone: [phone] 02/09/2025 3:33 PM EDT 02/10/2025 6:53 AM EDT Narrative CLINISYNC - 02/14/2025 6:08 PM EDT SPATULA-ALONE CERVIX Aga Shore NP LAB BLOOD ORDERABLES Final Re sult Performing Organization Address [facility]/ZIP Co de Phone Number [facility] * Pap Smear (02/09/2025 12:00 AM EDT) Swab Cervical swab / Unknown Aga Shore NP LAB CYTOLOGY ORDERABLES Final Result Performing Organization Address City/[facility] Co de Phone Number EXTERNAL LAB from Last 3 Months Insurance [employer] [place] Care Teams Conservation Agent Relationship Specialty Start Date End Date Unallocated, [place] [address] PCP - General Family Medicine 03/17/25
--- OUTSIDE RECORDS SUMMARY | 2025-05-06 18:08 | XMS_ITS | Encounter Summary ---
Author Organization [facility] Address [address] [place] [address] Care Team Providers Care Metal Sheet Roller Operator Name Role Phone Oliver Lozano MD Primary Care Provider [phone] Unallocated, Noms Provider Primary Care Provi zoltan Encounter Details Date Type Department Care Team (Late st Contact Info) Description 12/23/2024 Abstract YANIQUE DRAPER [address] [place] [address] Jung Serrato DO [address] [facility] [address] Joyce Parsons, [id number] Social History Tobacco Use Types Packs/Day Years [...] 1:50 PM EDT Routine YANIQUE DRAPER [address] [place] [address] Leyla Matt PA [address] [place], [id number] documented as of this encounter Visit Diagnoses Not on filedocumented in this encounter Care Teams Metal Sheet Roller Operator Relationship Specialty Start Date End Date Oliver Lozano MD [address] [facility] [address] [place] [address] PCP - General Internal Medicine 02/18/23 03/16/25 Unallocated, Noms Provider, [address] [place] [address] PCP - General Family Medicine 03/17/25 documented as of this encounter
--- OUTSIDE RECORDS SUMMARY | 2025-05-06 18:08 | XMS_ITS | Encounter Summary ---
Author Organization [facility] Address [address] [place] [address] Care Team Providers Care Ebd Teacher Name Role Phone Oliver Lozano MD Primary Care Provider [phone] Unallocated, Noms Provider Primary Care Provi zoltan Encounter Details Date Type Department Care Team (Late Contact Info) Description 05/31/2024 Abstract YANIQUE DRAPER [address] [facility] [facility] [place] [address] Jung Serrato DO [address] [facility] [address] Joyce Parsons, [facility]11 Social History Tobacco Use Types Packs/Day Years [...] 1:50 PM EDT Routine YANIQUE DRAPER [address] [facility] [place] [address] Lelya Matt PA [address] [facility] [address] [place], [facility]11 documented as of this encounter Visit Diagnoses Not on filedocumented in this encounter Care Teams Ebd Teacher Relationship Specialty Start Date End Date Oliver Lozano MD [address] [place] [address] PCP - General Internal Medicine 02/18/23 03/16/25 Unallocated, Noms Provider, [address] [place] [address] PCP - General Family Medicine 03/17/25 documented as of this encounter
--- OUTSIDE RECORDS SUMMARY | 2025-05-06 18:08 | XMS_ITS | Encounter Summary ---
Author Organization [facility] Address [address] [place] [address] Care Team Providers Care Field Service Poultry Technician Name Role Phone Oliver Lozano MD Primary Care Provider [phone] Unallocated, Noms Provider Primary Care Provi zoltan Encounter Details Date Type Department Care Team (Late st Contact Info) Description 12/17/2024 Abstract YANIQUE DRAPER [address] [facility] [place] [address] Jung Serrato DO [address] [facility] [address] Joyce Parsons, [facility]11 Social History Tobacco Use Types Packs/Day Years [...] 1:50 PM EDT Routine YANIQUE DRAPER [address] [facility] [place] [address] Leyla Matt PA [address] [place], [facility]11 documented as of this encounter Visit Diagnoses Not on filedocumented in this encounter Care Teams Field Service Poultry Technician Relationship Specialty Start Date End Date Oliver Lozano MD [address] [facility] [address] [facility] [address] [place] [address] PCP - General Internal Medicine 02/18/23 03/16/25 Unallocated, Noms Provider, [address] [place] [address] PCP - General Family Medicine 03/17/25 documented as of this encounter
--- OUTSIDE RECORDS SUMMARY | 2025-05-06 18:08 | XMS_ITS ---
Author Organization [facility] Source Produ ction (ClinicalSummary Clone) Address Unknown Care Team Providers Care Sheet Metal Lay Out Worker Name Role Phone Unavailable Primary Care Physician Unavailab le Results * [UNITY] ANEUPLOIDY NIPT Performed by: [employer] Component Value Range Date Fraction 3.7% 12/17/2024 06 :24 am UT Rh(D) NIPT RhD DETECTED 12/17/2024 06:2 4 am UT Sex Chromosome Aneuploidy NOT DETECTED 06:24 am UT Monosomy X LOW RISK <1 in 10,000 2024 06:24 am UTC Trisomy 13 LOW RISK <1 in 10,000 2024 06:24 am UTC Trisomy 18 LOW RISK <1 in 10,000 2024 06:24 am UTC Trisomy 21 LOW RISK <1 in 10,000 2024 06:24 am UTC Sex MALE 12/17/2024 06:2 4 am UTC Gestation LOPEZ 12/18/19 06:24 am UT For detailed report, see PDF See PDF 12/17/2024 06:24 am UTC 12/17/2024 06:2 4 am UT Social History Observation Value Start Date End Date
--- OUTSIDE RECORDS SUMMARY | 2025-05-06 18:08 | XMS_ITS | Encounter Summary ---
Author Organization [facility] Address [address] [place] [address] Care Team Providers Care Food And Beverage Analyst Name Role Phone Oliver Lozano MD Primary Care Provider [phone] Unallocated, Noms Provider Primary Care Provi zoltan Encounter Details Date Type Department Care Team (Late st Contact Info) Description 06/23/2024 Clinisync Result Encounter [facility] External Department Unsolicited Bety Serrato DO [address] [facility] [address] Joyce Parsons, [facility]11 Social History Tobacco Use Types Packs/Day Years [...] [address] [facility] [place] [address] Leyla Matt PA [address] [facility] [address] [place], [place] [id number] documented as of this encounter Procedures Procedure Name Priority Date/Time Associated Diagnosis Comments XR CHEST 2V 06/23/2024 8:47 AM EDT documented in this encounter Results * XR CHEST 2V (06/23/2024 8:47 AM EDT) Anatomical Region Laterality Modality Other 06/23/2024 8:47 AM EDT Narrative 06/23/2024 8:50 AM EDT [address] [address] XRay Report Signed Patient: MARGARET GIFFORD MR#: [id number] : 1995 Acct:[id number] Age/Sex: 28 / F ADM Date: 06/21/24 Loc: [facility] Attending Dr: Bety Serrato D.O. Ordering Physician: Bety Serrato D.O. Date of Service: 06/21/24 Procedure(s): XR chest 2V Accession Number(s): [id number] cc: Bety Serrato D.O.; Physician,Non-Staff [facility] [place] [id number] Patient Name: MARGARET GIFFORD MRN: [id number] date: 1995 Sex: F Assigned Patient Location: [facility] Current Patient Location: Accession/Order Number: [id number] Exam Date: 06/21/2024 11:40 Report Date: 06/23/2024 08:47 At the request of: BETY SERRATO Procedure: XR chest 2V EXAMINATION: XR chest 2V HISTORY: Preop exam COMPARISON: No relevant comparison available. TECHNIQUE: PA and lateral FINDINGS: LUNGS: No significant pulmonary parenchymal abnormalities. VASCULATURE: No increased pulmonary vasculature. PLEURA: No pneumothorax, effusion, or pleural thickening. CARDIAC: No cardiomegaly or cardiac silhouette abnormality. MEDIASTINUM: No visible mass or adenopathy. BONES: No fracture or visible bone lesion. OTHER: Negative. XR/XR chest 2V IMPRESSION: No acute cardiopulmonary process Electronically authenticated by: GERARDO HIDALGO Date: 06/23/2024 08:47 Dictated By: Gerardo Hidalgo M.D. Signed By: 06/23/2450 DD/ TD/TT: Drop Tester: Procedure Note Radiology, Radiologist, - 06/23/2024 [facility] [place] [id number] XRay Report Signed Patient: MARGARET GIFFORD MMR#: [id number] : 1995Acct:[id number] Age/Sex: 28 FADM Date: 06/21/24 Loc: [facility] Attending Dr: Bety Serrato D.O. Ordering Physician: Bety Serrato D.O. Date of Service: 06/21/24 Procedure(s): XR chest 2V Accession Number(s): [id number] cc: Bety Serrato D.O.; Physician,Non-Staff [facility] [place] [id number] Patient Name: MARGARET GIFFORD MRN: [id number] date: 1995 Sex: F Assigned Patient Location: [facility] Current Patient Location: Accession/Order Number: [id number] Exam Date: 06/21/2024 11:40 Report Date: 06/23/2024 08:47 At the request of: BETY SERRATO Procedure: XR chest 2V EXAMINATION: XR chest 2V HISTORY: Preop exam COMPARISON: No relevant comparison available. TECHNIQUE: PA and lateral FINDINGS: LUNGS: No significant pulmonary parenchymal abnormalities. VASCULATURE: No increased pulmonary vasculature. PLEURA: No pneumothorax, effusion, or pleural thickening. CARDIAC: No cardiomegaly or cardiac silhouette abnormality. MEDIASTINUM: No visible mass or adenopathy. BONES: No fracture or visible bone lesion. OTHER: Negative. XR/XR chest 2V IMPRESSION: No acute cardiopulmonary process Electronically authenticated by: GERARDO HIDALGO Date: 06/23/2024 08:47 Dictated By: Gerardo Hidalgo M.D. Signed By:06/23/2450 DD/ 6 TD/TT: Drop Tester: Bety Serrato DO [facility] Final Result documented in this encounter Visit Diagnoses Not on filedocumented in this encounter Care Teams Food And Beverage Analyst Relationship Specialty Start Date End Date Oliver Lozano MD [address] [place] [address] PCP - General Internal Medicine 02/18/23 03/16/25 Unallocated, Noms Provider, [address] [place] [address] PCP - General Family Medicine 03/17/25 documented as of this encounter
--- OUTSIDE RECORDS SUMMARY | 2025-05-06 18:08 | XMS_ITS | Clinical Summary ---
Author Organization [facility] Address [address] [place] [address] [place] [address] Care Team Providers Care Bookstore Manager Name Role Phone Unavailable Primary Care Provider Unavailabl e Allergies Active Allergy Reactions Criticality Noted Date Comments Ibuprofen 09/16/2015 Bruising t/o the body Medications oseltamivir (TAMIFLU) 75 MG CapIndications: Influenza A take 1 capsule by mouth 2 times daily.. 10 capsule 7 Active Additional Information Patient not taking.Reported on 08/18/2018 clotrimazole-be tamethasone 1-0.05 % CreamIndication s:Hives Twice a day to the affected area, before bed and after shower in the morning. Maximum 1 week use 1 Tube 7 Active Additional Information Patient not taking.Reported on 08/18/2018 ondansetron 4 MG Tab tablet take 1 tablet by mouth every 8 hours as needed for Nausea. 18 tablet 7 Active Additional Information Patient not taking.Reported on 08/18/2018 cephALEXin 500 MG Cap capsule Take 1 capsule by mouth every 6 hours. 28 capsule 7 Active Additional Information Patient not taking.Reported on 08/18/2018 mupirocin 2 % Ointment ointment Apply to affect area three times daily 15 g 7 Active Additional Information Patient not taking.Reported on 08/18/2018 promethazine 25 MG Tab tablet Take 1 tablet by mouth every 8 hours as needed for Nausea (Nausea/Vomiting ). 6 tablet 8 Active Additional Information Patient not taking.Reported on 08/18/2018 levonorgestrel (MIRENA, 52 MG,) 20 MCG/24HR 1 Device by Intrauterine route Once. use as directed Active Active Problems Problem Noted Date Diagnosed Date IUD (intrauterine device) in place 10/22/2018 Overview (10/23/2018): Mirena IUD placed 08/18/18 Von Willebrand disease 04/25/2017 Menorrhagia 04/25/2017 Hypertension 05/26/2013 Aortic regurgitation 07/08/2012 Bicuspid aortic valve 07/08/2012 Aortic valve stenosis 07/08/2012 Family History Relation Name Status Comments Father Alive Mother Alive Social History Tobacco Use Types Packs/Day Years Used Date Smoking Tobacco: Never Smokeless Tobacco: Never Alcohol Use Standard Drinks/Week Comments Yes 0 (1 standard drink = 0.6 oz pur e alcohol) occ Comments No Sex and Gender Information Value Date Recorded Sex Assigned at Not on file Legal Sex Female 4:29 PM EST Gender Identity Female Sexual Orientation Not on file Last Filed Vital Signs Vital Sign Reading Time Taken Comments Blood Pressure 137/85 12/14/2018 8:54 PM EST Pulse 70 12/14/2018 8:54 PM EST Temperature 36.9 C (98.5 F) 12/14/2018 8:54 PM EST Respiratory Rate 16 12/14/2018 8:54 PM EST Oxygen Saturation 99% 12/14/2018 8:54 PM EST Inhaled Oxygen Concentration - - Weight 94.4 kg (208 lb 3.2 oz) 10/22/2018 4:00 P M EST Height 157.5 cm (5' 2 ) 08/18/2018 1:20 PM EST Body Mass Index 38.08 08/18/2018 1:20 PM EST Plan of Treatment Health Maintenance Due Date Last Done Comments HEPATITIS C VIRUS SCREENING 1995 TETANUS 04/28/2017 04/28/2007 CERVICAL CANCER SCREENING DISCUSSION 08/18/2019 08/18/2018 COVID-19 VACCINE ( season) 2024 INFLUENZA VACCINE (#1) 2025 2, 07/05/2011, 07/18/2010, Additional history exists HEP B VACCINE Completed 05/13/1995, 12/1994, 1995 TDAP (ADULT) Completed 04/28/2007 HPV VACCINE ADOL Discontinued 08/21/2007, , 02/16/2007 HPV VACCINE Completed 08/21/2007, 04/12, 02/16/2007 CHLAMYDIA SCREEN Discontinued 04/25/2017 GONORRHEA SCREEN Discontinued 04/25/2017 HIV SCREENING DISCUSSION Completed 04/25/2017 PNEUMOCOCCAL VACCINE SERIES Aged Out No longer eligible based on patient's age to complete this topic Procedures Procedure Name Priority Date/Time Associated Diagnosis Comments CYTOLOGY-TRAY WORKER, LIQUID BASED Routine 08/18/2018 2:01 PM EST Gynecologic exam normal Cervical cancer screening HIV 1 AND 2 ANTIBODIES Routine 04/25/2017 2:05 PM EDT Screening for STDs (sexually transmitted diseases) CHLAM & GONORRHEA: AMP CERVIX Routine 04/25/2017 2:05 PM EDT Screening for STDs (sexually transmitted diseases) from Last 3 Months or Most Recently Relevant to Health Maintenance Results * CYTOLOGY-TRAY WORKER, LIQUID BASED (08/18/2018 2:01 PM EST) Historical Case Report Cytology Report Patient Name: MARGARET GIFFORD [facility]. Rec. #: [id number] Submitting Physician: MONET AHN Clinical History: Date of Last Menstrual Period: IUD Contraceptive History: IUD Treatment History: HPV HR with genotype if ASCUS Z01.419 Source of Specimen(s): A: Cervical/Endocervi odessa, Liquid Based, ThinPrep Pap Stain x 1 Statement of Adequacy: Satisfactory For Evaluation; Endocervical/Trans formation Zone Component Present. ---Cytologic Interpretation--- - Negative For Intraepithelial Lesion Or Malignancy. - HPV Testing Was Not Performed Due To The Results Of This Pap Test. [id number] Electronically Signed Out By SOY Omalley (ASCP) [facility] Pathologic Diagnosis Statement of Adequacy: Satisfactory For Evaluation; Endocervical/Trans formation Zone Component Present. ---Cytologic Interpretation--- - Negative For Intraepithelial Lesion Or Malignancy. - HPV Testing Was Not Performed Due To The Results Of This Pap Test. [facility] CYTOLOGY, OTHER 08/18/2018 2 :01 PM EST 08/19/2018 11:26 AM EST Aj Hickman MD CYTOLOGY Edited Result - Final [facility] [address] [place] [id number] * CHLAM & GONORRHEA: AMP CERVIX (04/25/2017 2:05 PM EDT) MICRO ACCESSION NUMBER [id number] [facility] Chlamydia trachomatis Culture Negative Negative LAB, [facility] Neisseria Gonorrhoeae, CX Negative Negative LAB, [facility] METHOD THIS TEST WAS PERFORMED USING A REAL TIME PCR ASSAY. LAB, [facility] CERVICAL SWAB / Unknown 04/25/2017 2:05 PM EDT 04/25/2017 5:44 PM EDT Ashlyn Delgado MANAGER OF REGULATORY AFFAIRS-TECHNICAL STAFF ASSISTANT MICROBIOLOGY - GENER AL ORDERABLES Final Result Performing Organization Address [facility]/ZIP Co de Phone Number [address] [address] * HIV 1 AND 2 ANTIBODIES (04/25/2017 2:05 PM EDT) HIV-1/HIV-2 AB/p24 Antigen NONREACTIVE NONREACTIVE LAB, [facility] 04/25/2017 2:05 PM EDT 04/25/2017 5:03 PM EDT Ashlyn Delgado MANAGER OF REGULATORY AFFAIRS-TECHNICAL STAFF ASSISTANT IMMUNOLOGY ORDERABLE S Final Result Performing Organization Address City/[facility]/ZIP Co de Phone Number LAB, [facility] [address] [address] from Last 3 Months or Most Recently Relevant to Health Maintenance Insurance [facility]
--- OUTSIDE RECORDS SUMMARY | 2025-05-06 18:08 | XMS_ITS | Encounter Summary ---
Author Organization [facility] Address [address] [place] [address] Care Team Providers Care Director Day Care Center Name Role Phone Oliver Lozano MD Primary Care Provider [phone] Unallocated, Noms Provider Primary Care Provi zoltan Encounter Details Date Type Department Care Team (Late st Contact Info) Description 01/12/2025 Abstract YANIQUE DRAPER [address] [facility] [place] [address] Jung Serrato DO [address] [facility] [address] Joyce Parsons, [facility]11 Social History Tobacco Use Types Packs/Day [...] 1:50 PM EDT Routine YANIQUE DRAPER [address] [facility] [place] [address] Leyla Matt PA [address] [facility] [address] [place], [facility]11 documented as of this encounter Visit Diagnoses Not on filedocumented in this encounter Care Teams Director Day Care Center Relationship Specialty Start Date End Date Oliver Lozano MD [address] [facility] [address] [facility] [address] [place] [address] PCP - General Internal Medicine 02/18/23 03/16/25 Unallocated, Noms Provider, [address] [place] [address] PCP - General Family Medicine 03/17/25 documented as of this encounter
--- OUTSIDE RECORDS SUMMARY | 2025-05-06 18:09 | XMS_ITS | Clinical Summary ---
Author Organization [facility] [facility] Address [id number] [address] [place] [address] Care Team Providers Care Welt Sewer Name Role Phone Oliver Lozano MD Primary Care Provider [phone] Allergies Active Allergy Reactions Criticality Noted Date Comments Ibuprofen 09/16/2015 Bruising t/o the body Medications levonorgestrel (MIRENA) 20 mcg/24 hr (5 years) IUD 1 each by intrauterine route once. Active Active Problems Problem Noted Date Diagnosed Date Secondary hypertension 03/19/2021 Aortic stenosis due to bicuspid aortic valve Aortic regurgitation due to bicuspid aortic valv e 05/04/2018 Chest pain 05/04/2018 Encounters Date Type Department Care Team Description 03/30/2025 8:30 AM EDT - 03/30/2025 11:59 PM EDT Hospital Encounter [facility] [place] [facility] [address] [place] [id number] Discharge Disposition: Home 03/30/2025 Travel from Last 3 Months Family History Medical History Relation Name Comments Diabetes Father Heart defect Sister Hypertension Sister Arrhythmia Neg Hx Asthma Neg Hx Clotting disorder Neg Hx Heart attack Neg Hx High Cholesterol Neg Hx Seizures Neg Hx Stroke Neg Hx Sudden Neg Hx Thyroid Issues Neg Hx Relation Name Status Comments Father Sister Social History Tobacco Use Types Packs/Day Years Used Date Smoking Tobacco: Never Smokeless Tobacco: Never Tobacco Cessation:Counseling Given: Not Answered Alcohol Use Standard Drinks/Week Comments Not Currently 0 (1 standard drink = 0.6 oz pur e alcohol) Childcare Answer Date Recorded Childcare Unknown 03/24/2019 Employment Answer Date Recorded Employment Unknown 03/24/2019 Purpose - Life Answer Date Recorded Purpose and direction in life Unknown Comments Unknown Sex and Gender Information Value Date Recorded Sex Assigned at Not on file Legal Sex Female 11:49 AM EDT Gender Identity Not on file Sexual Orientation Not on file Last Filed Vital Signs Vital Sign Reading Time Taken Comments Blood Pressure 122/91 10/17/2022 3:04 PM EST Pulse 61 10/17/2022 3:04 PM EST Temperature - - Respiratory Rate - - Oxygen Saturation 100% 10/17/2022 3:04 PM EST Inhaled Oxygen Concentration - - Weight 86.5 kg (190 lb 12.8 oz) 01/14/2025 2:59 PM EDT Height 157.5 cm (5' 2 ) 01/14/2025 2:59 PM EDT Body Mass Index 34.9 01/14/2025 2:59 PM EDT Plan of Treatment Health Maintenance Due Date Last Done Comments Depression Screening 2006 Tobacco Screening 2006 Adult BMI Follow Up Plan 2012 DTaP,Tdap and Td Vaccines (7 - Td or Tdap) 04/28/2017 04/28/2007, 05/04/1999, 04/05/1996, Additional history exists Influenza Vaccine 06/13/2025 06/10/2012, , 07/18/2010, Additional history exists Adult BMI Screening 01/14/2026 01/14/2025 Pap Smear 02/10/2028 02/09/2025, 08/18/2018 Medical Devices Not on file Procedures Procedure Name Priority Date/Time Associated Diagnosis Comments ECHO 2D WITH COLOR FLOW Routine 03/30/2025 9:28 AM EDT Maternal aortic stenosis affecting from Last 3 Months Results * echo 2D W/ color flow (03/30/2025 9:28 AM EDT) Anatomical Region Laterality Modality Chest N/A Ultrasound Narrative 03/31/2025 5:07 PM EDT History of maternal bicuspid aortic valve with aortic regurgitation Current 26 week fetus with structurally normal heart and normal biventricular systolic function. Normal PFO with ovtwy-[id number] shunt and ductus arteriosus seen with kdkhl-gw-qzwz shunting. There is no evidence of aortic stenosis or regurgitation but the leaflet anatomy could not be delineated. Normal heart rate of 140 beats per minute with no dysrhythmia seen. Upper to mildly dilated normal ascending aortic diameter This echocardiogram demonstrated a single fetus with normal cardiac situs and normal visceral situs at 26 weeks gestation. The right and left atrial chamber size was normal with a PFO and expected right to left shunting. Both mitral and tricuspid valves were structurally normal with no evidence of stenosis or regurgitation. The biventricular chamber size and functions were normal with no obvious evidence of ventricular septal defect. There is no right or left ventricular outflow tract obstruction seen. The pulmonary (diameter of 5.5 mm) and aortic (diameter of 4.5-4.9 mm) valves were clearly seen with no evidence of stenosis or regurgitation. The aortic cusp anatomy could not be delineated on these images. The main and branch pulmonary arteries were clearly visualized with a normal ductal arch and right to left shunting. The aortic arch appeared to be left-sided with normal head and neck vessel branching and no evidence of coarctation. The ascending aorta plots at the upper limits of normal. The superior and inferior venacaval connections were normal with normal Doppler interrogation. The umbilical cord demonstrated 3 vessels with 2 arteries and 1 vein and normal Doppler profile. No evidence of pericardial effusion was seen. No evidence of dysrhythmia was seen. Heart rate was 140 beats per minute. Echocardiographic recommendations: Strongly recommend echocardiogram but no obvious concerns seen on this study. The upper normal ascending aortic measurements will be remeasured after . Study Details A echocardiogram was performed. Blayne Smalls MD CV ECHO ORDERABLES Final Res ult from Last 3 Months Insurance [employer] [place] [employer] Care Teams Welt Sewer Relationship Specialty Start Date End Date Oliver Lozano MD [address] [place] [address], [address] [place] [address] PCP - General 04/29/18
[2025-05-06 18:11] VITALS: BP 119/78; PULSE 81
--- OUTSIDE RECORDS SUMMARY | 2025-05-06 18:21 | XMS_ITS | CCD ---
Author Organization [facility] Care Team Providers Care Miter Grinder Operator Name Role Phone GarethnhAndrea benedict Primary Care Provi zoltan ANDREA WILCOX Attending Un available ANDREA WILCOX SHAHANA Primary Care Un available Joi Lewis Primary Care Provider Unavailmone WILCOX ANDREA SHAHANA Primary Care Un available VERONICA KUO Attending Unavailable ANDREA WILCOX Primary Care Un available SU WILLIAMSON Attending Unavailable [facility] Primary Care Un available ARIELLE VENTURA Attending Unavailable Joi Lewis Primary Care Provider JOI LEWIS Primary Care Unavailable JOI LEWIS Primary Care Unavailable PARUL GRAVES Referring Unavailable JOI LEWIS Primary Care Unavailable PARUL GRAVES Referring Unavailable Joi Lewis MD Primary Care Provider [phone] Joi Lewis MD Primary Care Provider [phone] Joi Lewis MD Primary Care Provider Louannlocatnolan LOYOLA, [place] Provider Primary Care Provi zoltan JOI LEWIS Primary Care Unavailable FIOR MENDEZ Attending Unavailable JOI LEWIS Primary Care Unavailable JUNG SERRATO Referring Unavailable JOI LEWIS Primary Care Unavailable ALEXYS FAROOQ Referring Unavailable JOI LEWIS Primary Care Unavailable JUNG SERRATO Referring Unavailable JOI LEWIS Primary Care Unavailable JUNG SERRATO Referring Unavailable JOI LEWIS Primary Care Unavailable JUNG SERRATO Referring Unavailable JOI LEWIS Primary Care Unavailable JUNG SERRATO Referring Unavailable BLAYNE SMALLS Referring Unavailable JOI LEWIS Primary Care Unavailable BLYANE SMALLS Referring Unavailable JOI LEWIS Primary Care Unavailable SMALLS, BLAYNE Faria Referring Unavailable JOI LEWIS Primary Care Unavailable JUNG SERRATO Attending Unavailable BRIAN SHORE Attending Unavailable AMA, JUNG Attending Unavailable LEYLA MATT Attending Unavailable AMA, JUNG Attending Unavailable AMA, JUNG Attending Unavailable SMALLS, BLAYNE Attending Unavailable SMALLS, BLAYNE Attending Unavailable Allergies Allergy Classification Reported Allergen(s) Allergy Type Date of Onset Reaction(s) Facility NSAIDs (2 sources) Ibuprofen; Translations: [IBUPROFEN] Drug Allergy 5 [facility] (20 sources) Ibuprofen; Translations: [IBUPROFEN] Drug Allergy 5 [facility] (19 sources) Non-steroidal anti-inflammator y agent Drug Allergy 4 [facility] (3 sources) Non-steroidal anti-inflammator y agent Propensity to adverse reactions to drug 4 [facility] Medications Current Medications Medication Drug Class(es) [...] . 1 Inhaler 0 07/06/2019 07/05/2020 Active alpha-tocopherol acetate 30 unt / ascorbic acid 100 mg / beta carotene 1000 unt / calcium carbonate 200 mg / calcium pantothenate 7 mg / cholecalciferol 400 unt / docusate sodium 25 mg / ferrous fumarate 29 mg / folic acid 1 mg / niacinamide 15 mg / pyridoxine hydrochloride 20 mg / riboflavin 3 mg / thiamine 3 mg / vitamin b12 0.012 mg / zinc oxide 20 mg oral tablet (1 source) Vitamin B12, Vitamin D, Vitamin C Start: 04-26-2025 End: 04-26-2026 take 1 tablet by mouth once daily Vit-DSS-Fe Fum-FA ( 19) tablet Indications: Second trimester ([facility]) Take 1 tablet by mouth Daily 30 tablet 11 04/26/2025 04/26/2026 Active benzonatate 200 mg oral capsule (1 [...] 20 capsule 0 12/01/2019 12/11/2019 Active levonorgestrel 0.718450 mg/hr intrauterine system (10 sources) Progestin, Progestin-containi ng Intrauterine Device levonorgestrel (MIRENA) 20 mcg/24 hr (5 years) IUD 1 each by intrauterine route once. Active magnesium oxide 400 mg oral tablet (8 sources) Start: 02-28-2025 End: 02-28-2026 take 1 tablet by mouth once daily magnesium oxide (Mag-Ox) 400 MG tablet Indications: headache in second trimester ([facility]) Take 1 tablet (400 mg) by mouth Daily 30 tablet 11 02/28/2025 02/28/2026 Active mupirocin 20 mg/ml topical cream (8 [...] Discontinued ondansetron 4 mg disintegrating oral tablet (5 sources) Serotonin-3 Receptor Antagonist ondansetron (ZOFRAN-ODT) 4 [...] Active oxymetazoline hydrochloride 0.5 mg/ml nasal spray (7 sources) Start: oxymetazoline (12 HOUR NASAL SPRAY) 0.05 % nasal spray Use daily as directed for 3 days 1 Bottle 08/11/2020 Active Vit-Fe Fumarate-FA ( 19 PO) (11 sources) take 1 tablet by mouth once daily Vit-Fe Fumarate-FA ( 19 PO) Take 1 tablet by mouth Daily Active VIT-FE FUMARATE-FA PO (3 sources) take 1 tablet by mouth once daily VIT-FE FUMARATE-FA PO Take 1 tablet by mouth daily Active silver sulfADIAZINE 10 mg/ml topical cream (7 sources) Sulfonamide Antibacterial Start: End: silver sulfADIAZINE (SILVADENE) 1 % cream Indications: Sunburn Apply thin film to left posterior shoulder region and L side of neck daily x 7 days . 50 g 1 06/21/2019 06/20/2020 Active valACYclovir 1000 mg oral tablet (2 sources) Herpesvirus Nucleoside Analog DNA Polymerase Inhibitor, Herpes Simplex Virus Nucleoside Analog DNA Polymerase Inhibitor, Herpes Zoster Virus Nucleoside Analog DNA Polymerase Inhibitor Start: End: take 1 tablet by mouth in the morning valACYclovir (Valtrex) 1 g tablet Indications: Cold sore Take 1 tablet (1,000 mg) by mouth in the morning and 1 tablet (1,000 mg) before bedtime. Do all this for 10 days. 20 tablet 12/10/2024 12/20/2024 Active Completed/Discontinued Medications Medication Drug Class(es) Dates Sig (Normalized) Sig (Original) acetaminophen 325 mg / butalbital 50 mg / caffeine 40 mg oral tablet (1 source) Barbiturate, Central Nervous System Stimulant, Methylxanthine Start: 02-24-2025 End: 02-24-2025 take 1 tablet by mouth every twenty-four hours 1 tablet, Oral, ONCE, 1 dose, On [facility] 02/24/25 at 2315, Maximum dose of acetaminophen is 4000 mg from all sources in 24 hours. albuterol 90 mcg/actuation inhaler (6 sources) Start: [...] 1.5 mg/ml oral solution (6 sources) Uncompetitive O-jzwcde-I-aspartate Receptor Antagonist, Sigma-1 Agonist Start: 10-18-2019 End: 09-30-2020 take 10 mL by mouth four times daily as needed for cough pyrilamine-dextromethorphan (Jackson DM) 7.5-7.5 mg/5 mL Liqd Indications: Influenza [...] days 30 tablet 0 01/19/2023 01/29/2023 Active 1000 ml sodium chloride 9 mg/ml injection (1 source) Start: 02-24-2025 End: 02-25-2025 1,000 mL (11.1 mL/kg), IntraVENous, at 983.6 mL/hr, Administer over 61 Minutes, ONCE, On [facility]lin 02/24/25 at 2315, For 1 dose, For adult patients weighing > 55 kg (120 lbs.) and less than topiramate 25 mg oral tablet (7 sources) Start: 10-02-2018 End: 09-30-2020 take 1 tablet by mouth once daily topiramate (TOPAMAX) 25 MG tablet Indications: Migraine with aura and without status migrainosus, not intractable Take 1 (one) tablet (25 mg total) by mouth nightly . 30 tablet 0 10/02/2018 09/30/2020 Discontinued Problems Active Problems Problem Classification Problem Date Documented Date Episodic/Chronic Aortic; peripheral; and visceral artery aneurysms (3 sources) Aortic ectasia, unspecified site; Translations: [Aortic ectasia, unspecified site] Onset: 12-27-2024 Chronic Cardiac and circulatory congenital anomalies (20 sources) Bicuspid aortic valve; Translations: [Congenital insufficiency of aortic valve] Onset: 07-08-2012 10-02-2018 Chronic Chronic obstructive pulmonary disease and bronchiectasis (2 sources) Bronchitis; Translations: [Bronchitis] Episodic Coagulation and hemorrhagic disorders (20 sources) von Willebrand disorder; Translations: [Von Willebrand disease] Onset: 10-02-2018 10-02-2018 Chronic Essential hypertension (8 sources) Hypertensive disorder; Translations: [Essential (primary) hypertension] Onset: 05-26-2013 05-26-2013 Chronic Headache; including migraine (9 sources) Migraine; Translations: [Migraine] Onset: 10-02-2018 10-26-2018 Chronic Headache; including migraine (1 source) Headache; including migraine; Translations: [Headache, unspecified] Onset: 02-24-2025 Heart valve disorders (20 sources) Aortic valve stenosis; Translations: [Aortic valve regurgitation] Onset: 07-08-2012 07-08-2012 Chronic Hypertension with complications and secondary hypertension (1 source) Secondary hypertension; Translations: [Secondary hypertension, unspecified] Onset: 03-19-2021 03-19-2021 Chronic Immunizations and screening for infectious disease (2 sources) Exposure to sexually transmissible disorder; Translations: [Contact with and (suspected) exposure to infections with a predominantly sexual mode of transmission] 02-09-2025 Episodic Influenza (1 source) Influenza due to Influenza virus, type B; Translations: [Influenza B] Episodic Menstrual disorders (9 sources) Menorrhagia; Translations: [Excessive and frequent menstruation with regular cycle] 07-06-2012 Chronic Other complications of (1 source) Headache; Translations: [Other specified related conditions, second trimester] 02-25-2025 Episodic Other complications of (1 source) Other specified related conditions, second trimester; Translations: [Other specified related conditions, second trimester] Onset: 02-24-2025 Episodic Other complications of (1 source) Diseases of the circulatory system complicating , unspecified trimester; Translations: [Diseases of the circulatory system complicating , unspecified trimester] Onset: 03-09-2025 Episodic Other endocrine disorders (1 source) Polycystic ovary syndrome; Translations: [Polycystic ovarian syndrome] 06-02-2024 Chronic Other endocrine disorders (2 sources) Polycystic ovarian syndrome; Translations: [Polycystic ovarian syndrome] Onset: 05-27-2024 Chronic Other female genital disorders (2 sources) Pain [...] specified noninflammatory disorders of vagina] Episodic Other female genital disorders (2 sources) Vaginal discharge; Translations: [Other specified noninflammatory disorders of vagina] 02-09-2025 Episodic Other inflammatory condition of skin (1 [...] conditions (not mental disorders or infectious disease) (10 sources) Increased prolactin level; Translations: [Other specified abnormal findings of blood chemistry] Onset: 06-09-2024 06-02-2024 Episodic Other skin disorders (1 source) Inflammatory dermatosis; Translations: [Dermatitis] Episodic Other upper respiratory disease (1 source) Rhinitis; Translations: [Acute rhinitis] Chronic Other upper respiratory infections (1 source) Posterior rhinorrhea; Translations: [Post-nasal drip] Episodic Ovarian cyst (2 sources) Other ovarian cyst, right side; Translations: [Unspecified ovarian cyst, left side] Onset: 2023 Episodic Residual codes; unclassified (2 sources) Gestation period, 19 weeks; Translations: [19 weeks gestation of ] 02-09-2025 Episodic Residual codes; unclassified (3 sources) Gestation period, 20 weeks; Translations: [20 weeks gestation of ] Onset: 02-17-2025 02-17-2025 Episodic Residual codes; unclassified (2 sources) Gestation period, 23 weeks; Translations: [23 weeks gestation of ] 03-14-2025 Episodic Residual codes; unclassified (2 sources) Gestation period, 28 weeks; Translations: [28 weeks gestation of ] 04-19-2025 Episodic Unclassified (1 source) Von Willebrand disease, unspecified; Translations: [Von Willebrand disease, unspecified] Onset: 12-27-2024 Viral infection (1 source) Herpes labialis; Translations: [Herpesviral vesicular dermatitis] 12-10-2024 Episodic Past or Other Problems Problem Classification Problem Date Documented Da te Episodic/Chronic Abdominal pain (2 sources) Pelvic and perineal pain; Translations: [Pain in female pelvis] Onset: 08-18-2023 06-02-2024 Episodic Nonspecific chest pain (1 source) Chest pain; Translations: [Chest pain, unspecified] Onset: 05-04-2018 05-04-2018 Episodic Other endocrine disorders (1 source) Disorder of endocrine system; Translations: [Endocrine disorder, unspecified] 06-02-2024 Episodic Other endocrine disorders (2 sources) Endocrine disorder, unspecified; Translations: [Endocrine disorder, unspecified] Onset: 05-27-2024 Episodic Other and delivery including normal (20 sources) ; Translations: [Encounter for supervision of normal , unspecified, unspecified trimester] Onset: 01-06-2025 12-10-2024 Episodic Residual codes; unclassified (17 sources) Gestation period, 14 weeks; Translations: [14 weeks gestation of ] Onset: 01-06-2025 01-06-2025 Episodic Skin and subcutaneous tissue infections (1 source) Impetigo; Translations: [Impetigo] Episodic Unclassified (1 source) Von Willebrand disease, unspecified; Translations: [Von Willebrand disease, unspecified] Onset: 05-02-2025 Results Test Name Value Interpretation Reference Range Facility OB BPP W NON-STRESS on 05-03-2025 [place] [id number] Ultrasound Report Signed Patient: EDGAR ORTIZ MR#: [id number] : 1995 Acct:[id number] Age/Sex: 29 / F ADM Date: 05/03/25 Loc: [facility] 250-[address]: Leyla Matt Ordering Physician: Leyla Matt Date of Service: 05/03/25 Procedure(s): US OB BPP w non-stress Accession Number(s): [id number] cc: Leyla Matt; JOI LEWIS [place] [id number] Patient Name: EDGAR ORTIZ MRN: [id number] date: 1995 Sex: F Assigned Patient Location: [facility] Current Patient Location: [facility] Accession/Order Number: [id number] Exam Date: 05/03/2025 16:23 Report Date: 05/03/2025 16:24 At the request of: LEYLA MATT Procedure: US OB BPP w non-stress Biophysical profile. Reason for exam: Von Willebrand's disease COMPARISON: None TECHNIQUE: Transabdominal imaging of the gravid uterus was obtained. FINDINGS: The itinerant teacher assistant reports a BPP of 8 out of 8. ISABELL is normal at 17.4 cm. heart rate 131 bpm. US/US OB BPP w non-stress IMPRESSION: BPP 8 out of 8. Impression dictated by: Parrish Wise Jr., D.O. 05/03/2025 4:24 PM Dictation Location: [place] [address] Electronically authenticated by: [id number] Y Date: 05/03/2025 16:24 Dictated By: Parrish Wise M.D. Signed By: 05/03/25 1626 DD/ TD/TT: Cotton Seed Culler: ISAI RadiologyCharmaineogbee beltran MD - 05/03/2025 [place] [address] Ultrasound Report Signed Patient: EDGAR ORTIZ MR#: [id number] : 1995 Acct:[id number] Age/Sex: 29 / F ADM Date: 05/03/25 Loc: [place] [address]: Leyla Matt Ordering Physician: Leyla Matt Date of Service: 05/03/25 Procedure(s): US OB BPP w non-stress Accession Number(s): [id number] cc: Leyla Matt; JOI LEWIS [address] [address] Patient Name: EDGAR ORTIZ MRN: [facility]:[id number] date: 1995 Sex: F Assigned Patient Location: [facility] Current Patient Location: [facility] Accession/Order Number: [id number] Exam Date: 05/03/2025 16:23 Report Date: 05/03/2025 16:24 At the request of: LEYLA MATT Procedure: US OB BPP w non-stress Biophysical profile. Reason for exam: Von Willebrand's disease COMPARISON: None TECHNIQUE: Transabdominal imaging of the gravid uterus was obtained. FINDINGS: The itinerant teacher assistant reports a BPP of 8 out of 8. ISABELL is normal at 17.4 cm. heart rate 131 bpm. US/US OB BPP w non-stress IMPRESSION: BPP 8 out of 8. Impression dictated by: Parrish Wise Jr., D.O. 05/03/2025 4:24 PM Dictation Location: [place] [address] Electronically authenticated by: [id number] Y Date: 05/03/2025 16:24 Dictated By: Parrish Wise M.D. Signed By: 05/03/256 DD/ 23 TD/TT: Cotton Seed Culler: [facility] Radiology Study observation (narrative) [facility] US OB BPP W NON-STRESS Ordered By: Radiologist Radiology on 05-03-2025 [facility] [employer] Work Phone: [phone] 05-02-2025 37 No cardiac concerns with you (mild stenosis should be well tolerated) /can't hear any significant regurgitation EKG looks good Notify me when you are in labor (I do want to see baby after ) Follow-up first october [facility] Office Visiton 05-02-2025 Follow-up visit [id number] Rhiannon Ortiz 1995 F Date Provider Department Center 05/02/2025 BLAYNE JORDAN No family history on file Level of Service:33015 [place] OFFICE/OP CONSLTJ NEW/EST PT LOW MDM 30 MINUTES Reason for Visit and Comments: Follow-up [857140] [facility] US OB GROWTHon 04-22-[address] [address] Ultrasound Report Signed Patient: EDGAR ORTIZ MR#: [id number] : 1995 Acct:[id number] Age/Sex: 29 / F ADM Date: 04/22/25 Loc: US Attending Dr: Leyla Matt Ordering Physician: Leyla Matt Date of Service: 04/22/25 Procedure(s): US OB growth Accession Number(s): [id number] cc: Leyla Matt; JOI LEWIS [place] [address] Patient Name: EDGAR ORTIZ MRN: [facility]:[id number] date: 1995 Sex: F Assigned Patient Location: US Current Patient Location: US Accession/Order Number: [id number] Exam Date: 04/22/2025 16:36 Report Date: 04/22/2025 16:39 At the request of: LEYLA MATT Procedure: US OB growth US OB growth [...] Lovett M.D. 04/22/2025 4:39 PM Dictation Location: [place] [address] Electronically authenticated by: [id number] Y Date: 04/22/2025 16:39 Dictated By: Tyson Lovett M.D. Signed By: 04/22/25 1641 DD/ 1639 TD/TT: Cotton Seed Culler: [facility] Radiology, Radiologi MD ruby - 04/22/2025 [place] [address] Ultrasound Report Signed Patient: EDGAR ORTIZ MR#: [id number] : 1995 Acct:[id number] Age/Sex: 29 / F ADM Date: 04/22/25 Loc: US Attending Dr: Leyla Matt Ordering Physician: Leyla Matt Date of Service: 04/22/25 Procedure(s): US OB growth Accession Number(s): [id number] cc: Leyla Matt; JOI LEWIS [place] [id number] Patient Name: EDGAR ORTIZ MRN: [id number] date: 1995 Sex: F Assigned Patient Location: US Current Patient Location: US Accession/Order Number: [id number] Exam Date: 04/22/2025 16:36 Report Date: 04/22/2025 16:39 At the request of: LEYLA MATT Procedure: US OB growth US OB growth [...] Lovett M.D. 04/22/2025 4:39 PM Dictation Location: [place] [address] Electronically authenticated by: [id number] Y Date: 04/22/2025 16:39 Dictated By: Tyson Lovett M.D. Signed By: 04/22/25 1641 DD/ 163 TD/TT: Cotton Seed Culler: [facility] Radiology Study observation (narrative) [facility] US OB GROWTHOrdered By: Kushal ologist Radiology on 04-22-2025 [facility] [employer] Work Phone: Urinalysis macro (dipstick) panel (U)on 04-19-2025 Bilirubin, UA Negative Negative - 4(70) +++ mg/dL [facility] Blood, UA Negative Negative - 50 Stanford/mcL [facility] Clarity, UA Clear [facility] re Color, UA Yellow [facility] [employer] Glucose, UA Negative Negative - 1999(110) ++++ mg/dL [facility] Interpretation and review of laboratory results Normal [facility] re Ketones, UA Negative Negative - 160(16) ++++ mg/dL [facility] Leukocytes, UA Negative Negative - 500+++ Yoni/mcL [facility] Nitrite, UA Negative Negative - Positive [facility] pH, UA 6 5 - 9 [facility] e Protein, UA Negative Negative - 1999(20) ++++ mg/dL [facility] Spec Grav, UA 1.01 1 - 1.03 [facility] Urobilinogen, UA 0.2 0.2 - 12 mg/dL [facility] Health[facility] [employer] ALL CBC WITH AUTO DIFFon Erythrocyte distribution width (RBC) [Ratio] 13.1 % 11.8 - 14.4 % [facility] Hematocrit (Bld) [Volume fraction] 35.1 % Low 36.3 - 47.1 % [facility] Hemoglobin (Bld) [Mass/Vol] 11.7 g/dL Low 11.9 - 15.1 g/dL [facility] Interpretation and review of laboratory results Abnormal [facility] MCH (RBC) [Entitic mass] 28.1 pg 25.2 - 33.5 pg [facility] MCHC (RBC) [Mass/Vol] 33.3 g/dL 28.4 - 34.8 g/dL [facility] MCV (RBC) [Entitic vol] 84.4 fL 82.6 - 102.9 fL [facility] AUTOMATED 0 0.0 per 100 WBC [facility] PLATELET COUNT 194 [facility] WBC COUNT 9.8 [facility] Platelet mean volume (Bld) [Entitic vol] 11.7 fL 8.1 - 13.5 fL [facility] RBC (Bld) [#/Vol] 4.16 10*6/uL 3.95 - 5.1 1 m/uL [facility] Original Ordering Provider: JUNG RADER DO [facility] Healthcar e CBCon 03-22-2025 Erythrocyte distribution width (RBC) [Ratio] 13.1 % 11.8 - 14.4 % [facility] Hematocrit (Bld) [Volume fraction] 35.1 % Low 36.3 - 47.1 % [facility] Hemoglobin (Bld) [Mass/Vol] 11.7 g/dL Low 11.9 - 15.1 g/dL [facility] Interpretation and review of laboratory results Abnormal [facility] MCH (RBC) [Entitic mass] 28.1 pg 25.2 - 33.5 pg [facility] MCHC (RBC) [Mass/Vol] 33.3 g/dL 28.4 - 34.8 g/dL [facility] MCV (RBC) [Entitic vol] 84.4 fL 82.6 - 102.9 fL [facility] Nucleated RBC/100 WBC (Bld) [Ratio] 0 % 0.0 per 100 WBC [facility] Platelet mean volume (Bld) [Entitic vol] 11.7 fL 8.1 - 13.5 fL [facility] Platelets (Bld) [#/Vol] 194 10*3/uL [facility] RBC (Bld) [#/Vol] 4.16 10*6/uL 3.95 - 5.1 1 m/uL [facility] WBC other (Bld) [#/Vol] 9.8 [facility] Erythrocyte distribution width (RBC) [Ratio] 13.1 % Normal 11.8-14.4 [facility] Comment on above: Performed By: #### G LUSC, CBC #### [facility] [address] [place] [address] Stagecraft Teacher: Patricio Kelley MD Hematocrit (Bld) [Volume fraction] 35.1 % Low 36.3-47.1 [facility] Comment on above: Performed By: #### G LUSC, CBC #### [facility] [address] [place] [address] Stagecraft Teacher: Patricio Kelley MD Hemoglobin (Bld) [Mass/Vol] 11.7 g/dL Low 11.9-15.1 [facility] Comment on above: Performed By: #### G LUANGELICA, CBC #### [address] [place] [address] Stagecraft Teacher: Patricio Kelley MD MCH (RBC) [Entitic mass] 28.1 pg Normal 25.2-33.5 [facility] Comment on above: Performed By: #### G NOLAN, CBC #### [address] [place] [address] Stagecraft Teacher: Patricio Kelley MD MCHC (RBC) [Mass/Vol] 33.3 g/dL Normal 28.4-34.8 [facility] Comment on above: Performed By: #### G NOLAN, CBC #### [address] [place], [place] [id number] Stagecraft Teacher: Patricio Kelley MD MCV (RBC) [Entitic vol] 84.4 fL Normal 82.6-102.9 [facility] Comment on above: Performed By: #### G NOLAN, CBC #### [address] [place] [address] Stagecraft Teacher: Patricio Kelley MD NRBC Automated 0.0 per 100 WBC Normal 0.0 [facility] Comment on above: Performed By: #### G LUANGELICA, CBC #### [address] [place] [address] Stagecraft Teacher: Patricio Kelley MD Platelet mean volume (Bld) [Entitic vol] 11.7 fL Normal 8.1-13.5 [facility] Comment on above: Performed By: #### G NOLAN, CBC #### [address] [place] [address] Stagecraft Teacher: Patricio Kelley MD Platelets (Bld) [#/Vol] 194 10*3/uL Normal 138-453 [facility] Comment on above: Performed By: #### Kana FRANCISCO, CBC #### [facility] [address] [place] [address] Stagecraft Teacher: Patricio Kelley MD RBC (Bld) [#/Vol] 4.16 10*6/uL Normal 3.95-5.11 [facility] Comment on above: Performed By: #### Kana FRANCISCO, CBC #### [facility] [address] [place], [place] [id number] Stagecraft Teacher: Patricio Kelley MD WBC (Bld) [#/Vol] 9.8 10*3/uL Normal 3.5-11.3 [facility] Comment on above: Performed By: #### Kana FRANCISCO, CBC #### [facility] [address] [place] [address] Stagecraft Teacher: Patricio Kelley MD Glucose Challenge Gestationa jolene 03-22-2025 GLU ADMN Glucola [facility] Glucose 1 Hr post 50 g glucose PO [Mass/Vol] 119 mg/dL 70 - 135 mg/dL [facility] Glucose Mikel Scr 50gon 2024 Glucose [Mass/Vol] 119 mg/dL Normal 70-135 [facility] Comment on above: Performed By: #### Kana FRANCISCO, CBC #### [facility] [address] [place] [address] Stagecraft Teacher: Patricio Kelley MD Glu Administered via Glucola Normal [facility] Comment on above: Performed By: #### Kana FRANCISCO, CBC #### [facility] [address] [place] [address] Stagecraft Teacher: Patricio Kelley MD Urinalysis macro (dipstick) panel (U)on 03-14-2025 Bilirubin, UA Negative Negative - 4(70) +++ mg/dL [facility] Blood, UA Negative Negative - 50 Stanford/mcL [facility] Clarity, [facility] Clear [facility] Glucose, UA Negative Negative - 1999(110) ++++ mg/dL [facility] Interpretation and review of laboratory results Normal [facility] re Ketones, UA Negative Negative - 160(16) ++++ mg/dL [facility] Leukocytes, UA Negative Negative - 500+++ Yoni/mcL [facility] Nitrite, UA Negative Negative - Positive [facility] pH, UA 7 5 - 9 [facility] e Protein, UA Negative Negative - 1999(20) ++++ mg/dL [facility] Spec Grav, UA 1.02 1 - 1.03 [facility] Urobilinogen, UA 0.2 0.2 - 12 mg/dL [facility] CBC with Auto Differentialon 02-24-2025 Basophils (Bld) [#/Vol] 0.03 10*3/uL [facility] Basophils/100 WBC (Bld) 0 % 0 - 2 % [facility] Eosinophils (Bld) [#/Vol] 0.09 10*3/uL [facility] Eosinophils/100 WBC (Bld) 1 % 1 - 4 % [facility] Erythrocyte distribution width (RBC) [Ratio] 13 % 11.8 - 14.4 % [facility] Hematocrit (Bld) [Volume fraction] 34.7 % Low 36.3 - 47.1 % [facility] Hemoglobin (Bld) [Mass/Vol] 11.7 g/dL Low 11.9 - 15.1 g/dL [facility] Immature granulocytes (Bld) [#/Vol] 0.04 10*3/uL [facility] Immature granulocytes/100 WBC (Bld) 0 % 0 [facility] Interpretation and review of laboratory results Abnormal [facility] Lymphocytes/100 WBC (Bld) 23 % Low 24 - 43 % [facility] Lymphocytes/100 WBC (Bld) 2.34 % [facility] MCH (RBC) [Entitic mass] 27.7 pg 25.2 - 33.5 pg [facility] MCHC (RBC) [Mass/Vol] 33.7 g/dL 28.4 - 34.8 g/dL [facility] MCV (RBC) [Entitic vol] 82.2 fL Low 82.6 - 102.9 fL [facility] Monocytes/100 WBC (Bld) 6 % 3 - 12 % [facility] Monocytes/100 WBC (Bld) 0.59 % [facility] Neutrophils/100 WBC (Bld) 70 % High 36 - 65 % [facility] Nucleated RBC/100 WBC (Bld) [Ratio] 0 % 0.0 per 100 WBC [facility] Platelet mean volume (Bld) [Entitic vol] 11.2 fL 8.1 - 13.5 fL [facility] Platelets (Bld) [#/Vol] 215 10*3/uL [facility] RBC (Bld) [#/Vol] 4.22 10*6/uL 3.95 - 5.1 1 m/uL [facility] Segmented neutrophils/100 WBC (Bld) 6.94 % [facility] WBC other (Bld) [#/Vol] 10 [facility] CBC with Diffon 02-24-2025 Abs. Basophil 0.03 k/uL Normal 0.00-0.20 [facility] Comment on above: Performed By: #### C DP, CMPX, MG #### [facility] [address] [place] [address] [place] [address] Stagecraft Teacher: Patricio Kelley MD Abs.Imm.Granulocyt e 0.04 k/uL Normal 0.00-0.30 [facility] Comment on above: Performed By: #### C DP, CMPX, MG #### [facility] [address] [place] [address] [place] [address] Stage[employer] Teacher: Patricio Kelley MD Abs.Neutrophil (Seg) 6.94 k/uL Normal 1.50-8.10 [facility] Comment on above: Performed By: #### C DP, CMPX, MG #### [address] [place], [facility] [employer] Teacher: Patricio Kelley MD Basophils/100 WBC (Bld) 0 % Normal 0-2 [facility] Comment on above: Performed By: #### C DP, CMPX, MG #### [facility] [address] [place] [address] [place] [id number] [employer] Teacher: Patricio Kelley MD Eosinophils (Bld) [#/Vol] 0.09 10*3/uL Normal 0.00-0.44 [facility] Comment on above: Performed By: #### C DP, CMPX, MG #### [address] [place] [address] [employer] Teacher: Patricio Kelley MD Eosinophils/100 WBC (Bld) 1 % Normal 1-4 [facility] Comment on above: Performed By: #### C DP, CMPX, MG #### [address] [place] [address] [employer] Teacher: Patricio Kelley MD Erythrocyte distribution width (RBC) [Ratio] 13.0 % Normal 11.8-14.4 [facility] Comment on above: Performed By: #### C DP, CMPX, MG #### [address] [place] [id number] Stage[employer] Teacher: Patricio Kelley MD Hematocrit (Bld) [Volume fraction] 34.7 % Low 36.3-47.1 [facility] Comment on above: Performed By: #### C DP, CMPX, MG #### [address] [place] [id number] Stage[employer] Teacher: Patricio Kelley MD Hemoglobin (Bld) [Mass/Vol] 11.7 g/dL Low 11.9-15.1 [facility] Comment on above: Performed By: #### C DP, CMPX, MG #### [address] [place] [address] Stagecraft Teacher: Patricio Kelley MD Immature granulocytes/100 WBC (Bld) 0 % Normal 0 [facility] Comment on above: Performed By: #### C DP, CMPX, MG #### [facility] [address] [place], [place] [id number] [employer] Teacher: Patricio Kelley MD Lymphocytes (Bld) [#/Vol] 2.34 10*3/uL Normal 1.10-3.70 [facility] Comment on above: Performed By: #### C DP, CMPX, MG #### [address] [place] [address] Stagecraft Teacher: Patricio Kelley MD Lymphocytes/100 WBC (Bld) 23 % Low 24-43 [facility] Comment on above: Performed By: #### C DP, CMPX, MG #### [address] [place], [facility] [employer] Teacher: Patricio Kelley MD MCH (RBC) [Entitic mass] 27.7 pg Normal 25.2-33.5 [facility] Comment on above: Performed By: #### C DP, CMPX, MG #### [address] [place] [address] Stage[employer] Teacher: Patricio Kelley MD MCHC (RBC) [Mass/Vol] 33.7 g/dL Normal 28.4-34.8 [facility] Comment on above: Performed By: #### C DP, CMPX, MG #### [facility] [address] [place] [address] [place] [address] [employer] Teacher: Patricio Kelley MD MCV (RBC) [Entitic vol] 82.2 fL Low 82.6-102.9 [facility] Comment on above: Performed By: #### C DP, CMPX, MG #### [facility] [address] [place] [address] [place] [address] [employer] Teacher: Patricio Kelley MD Monocytes (Bld) [#/Vol] 0.59 10*3/uL Normal 0.10-1.20 [facility] Comment on above: Performed By: #### C DP, CMPX, MG #### [facility] [address] [place], [place] 1854983 [employer] Teacher: Patricio Kelley MD Monocytes/100 WBC (Bld) 6 % Normal 3-12 [facility] Comment on above: Performed By: #### C DP, CMPX, MG #### [facility] [address] [place] [address] Stagecraft Teacher: Patricio Kelley MD Neutrophil (Seg) 70 % High 36-65 [facility] Comment on above: Performed By: #### C DP, CMPX, MG #### [facility] [address] [place], [place] 7559883 [employer] Teacher: Patricio Kelley MD NRBC Automated 0.0 per 100 WBC Normal 0.0 [facility] Comment on above: Performed By: #### C DP, CMPX, MG #### [facility] [address] [place], [place] 1024783 [employer] Teacher: Patricio Kelley MD Platelet mean volume (Bld) [Entitic vol] 11.2 fL Normal 8.1-13.5 [facility] Comment on above: Performed By: #### C DP, CMPX, MG #### [facility] [address] [place] [address] Dr. [place], [place] 6458583 [employer] Teacher: Patricio Kelley MD Platelets (Bld) [#/Vol] 215 10*3/uL Normal 138-453 [facility] Comment on above: Performed By: #### C DP, CMPX, MG #### [facility] [address] [place], [place] 1582283 [employer] Teacher: Patricio Kelley MD RBC (Bld) [#/Vol] 4.22 10*6/uL Normal 3.95-5.11 [facility] Comment on above: Performed By: #### C DP, CMPX, MG #### [facility] [address] [place], [place] 8113983 [employer] Teacher: Patricio Kelley MD WBC (Bld) [#/Vol] 10.0 10*3/uL Normal 3.5-11.3 [facility] Comment on above: Performed By: #### C DP, CMPX, MG #### [facility] [address] [place] [address] Dr. [place], [place] [id number] [employer] Teacher: Patricio Kelley MD Comp Metabolic Pr/rfx MGon 0 - Albumin [Mass/Vol] 3.8 g/dL Normal 3.5-5.2 [facility] Comment on above: Performed By: #### C DP, CMPX, MG #### [facility] [address] [place] [address] Dr. [place], [place] [id number] [employer] Teacher: Patricio Kelley MD Albumin/Glob Ratio 1.5 Normal 1.0-2.5 [facility] Comment on above: Performed By: #### C DP, CMPX, MG #### [address] [place], [place] 3546583 [employer] Teacher: Patricio Kelley MD Alkaline Phos 65 U/L Normal 35-104 [facility] Comment on above: Performed By: #### C DP, CMPX, MG #### [facility] [address] [place] [address] Dr. [place], [place] 1550583 [employer] Teacher: Patricio Kelley MD ALT [Catalytic activity/Vol] 123 U/L High 10-35 [facility] Comment on above: Performed By: #### C DP, CMPX, MG #### [facility] [address] [place], [place] 048[address]83 [employer] Teacher: Patricio Kelley MD Anion gap [Moles/Vol] 11 mmol/L Normal 9-16 [facility] Comment on above: Performed By: #### C DP, CMPX, MG #### [facility] [address] [place], [place] 858[address]83 [employer] Teacher: Patricio Kelley MD AST [Catalytic activity/Vol] 47 U/L High 10-35 [facility] Comment on above: Performed By: #### C DP, CMPX, MG #### [facility] [address] [place], [place] 5179883 [employer] Teacher: Patricio Kelley MD Bilirubin [Mass/Vol] mg/dL Normal 0.00-1.20 [facility] Comment on above: Performed By: #### C DP, CMPX, MG #### [address] [place], [place] 4323783 [employer] Teacher: Patricio Kelley MD BUN/CRE Ratio 13 Normal 9-20 [facility] Comment on above: Performed By: #### C DP, CMPX, MG #### [address] [place], [place] 5288983 [employer] Teacher: Patricio Kelley MD Calcium [Mass/Vol] 9.1 mg/dL Normal 8.6-10.4 [facility] Comment on above: Performed By: #### C DP, CMPX, MG #### [facility] [address] [place] [address] Dr. [place], [place] 395[address] [employer] Teacher: Patricio Kelley MD Chloride [Moles/Vol] 101 mmol/L Normal 98-107 [facility] Comment on above: Performed By: #### C DP, CMPX, MG #### [address] [place] [address] Stage[employer] Teacher: Patricio Kelley MD CO2 [Moles/Vol] 25 mmol/L Normal 20-31 [facility] Comment on above: Performed By: #### C DP, CMPX, MG #### [facility] [address] [place] [address] [employer] Teacher: Patricio Kelley MD Creatinine [Mass/Vol] 0.6 mg/dL Normal 0.50-0.90 [facility] Comment on above: Performed By: #### C DP, CMPX, MG #### [facility] [address] [place] [address] [employer] Teacher: Patricio Kelley MD GFR/1.73 sq M.predicted among non-blacks MDRD (S/P/Bld) [Vol rate/Area] mL/min/{1.73_m2} Normal >60 [facility] Comment on above: Result Comment: These [...] affects renal tubular secretion. Performed By: #### C DP, CMPX, MG #### [address] [place] [address] Stage[employer] Teacher: Patricio Kelley MD Glucose [Mass/Vol] 85 mg/dL Normal 74-99 [facility] Comment on above: Performed By: #### C DP, CMPX, MG #### [address] [place] [address] [employer] Teacher: Patricio Kelley MD Potassium [Moles/Vol] 3.6 mmol/L Low 3.7-5.3 [facility] Comment on above: Performed By: #### C DP, CMPX, MG #### [facility] [address] [place] [address] Stagecraft Teacher: Patricio Kelley MD Protein [Mass/Vol] 6.5 g/dL Low 6.6-8.7 [facility] Comment on above: Performed By: #### C DP, CMPX, MG #### [facility] [address] [place] [address] Stage[employer] Teacher: Patricio Kelley MD Sodium [Moles/Vol] 137 mmol/L Normal 136-145 [facility] Comment on above: Performed By: #### C DP, CMPX, MG #### [facility] [address] [place] [address] [employer] Teacher: Patricio Kelley MD Urea nitrogen [Mass/Vol] 8 mg/dL Normal 6-20 [facility] Comment on above: Performed By: #### C DP, CMPX, MG #### [facility] [address] [place] [address] [employer] Teacher: Patricio Kelley MD Comprehensive Metabolic Pane l w/ Reflex to MGon 02-24-2025 Albumin [Mass/Vol] 3.8 g/dL 3.5 - 5.2 g/dL [facility] Albumin/Globulin [Mass ratio] 1.5 {ratio} 1.0 - 2.5 [facility] ALP [Catalytic activity/Vol] 65 U/L 35 - 104 U/L [facility] ALT [Catalytic activity/Vol] 123 U/L High 10 - 35 U/L [facility] Anion gap [Moles/Vol] 11 mmol/L 9 - 16 mmol/L [facility] AST [Catalytic activity/Vol] 47 U/L High 10 - 35 U/L [facility] Bilirubin [Mass/Vol] mg/dL 0.00 - 1.20 mg/dL [facility] Calcium [Mass/Vol] 9.1 mg/dL 8.6 - 10. 4 mg/dL [facility] Chloride [Moles/Vol] 101 mmol/L 98 - 107 mmol/L [facility] CO2 [Moles/Vol] 25 mmol/L 20 - 31 mmol/L [facility] Creatinine [Mass/Vol] 0.6 mg/dL 0.50 - 0.90 mg/dL [facility] Est, Glom Filt Rate - PINF [facility] Comment on above: These results are not intended for use [...] following therapy that affects renal tubular secretion. Glucose [Mass/Vol] 85 mg/dL 74 - 99 mg/dL [facility] Interpretation and review of laboratory results Abnormal [facility] Potassium [Moles/Vol] 3.6 mmol/L Low 3.7 - 5.3 mmol/L [facility] Protein [Mass/Vol] 6.5 g/dL Low 6.6 - 8.7 g/dL [facility] Sodium [Moles/Vol] 137 mmol/L 136 - 145 mmol/L [facility] Urea nitrogen [Mass/Vol] 8 mg/dL 6 - 20 mg/dL [facility] Urea nitrogen/Creatinin e [Mass ratio] 13 mg/mg 9 - 20 [facility] Magnesiumon 02-24-2025 Magnesium [Mass/Vol] 2 mg/dL 1.6 - 2.6 mg/dL [facility] Magnesium [Mass/Vol] 2.0 mg/dL Normal 1.6-2.6 [facility] Comment on above: Performed By: #### C DP, CMPX, MG #### [facility] [address] [place] [address] Stagecraft Teacher: Patricio Kelley MD Microscopic Urinalysison Amorphous sediment LM Ql (Urine sed) 2+ Abnormal None [facility] Bacteria LM Ql (Urine sed) TRACE Abnormal None [facility] Epithelial cells LM.HPF (Urine sed) [#/Area] 2 TO 5 [facility] Interpretation and review of laboratory results Abnormal [facility] RBC LM.HPF (Urine sed) [#/Area] 0 TO 2 [facility] WBC LM.HPF (Urine sed) [#/Area] 0 TO 2 [facility] No Panel Informationon 02-24 [facility] Protein / creatinine ratio, urineon 02-24-2025 Creatinine (U) [Mass/Vol] 110 mg/dL 28.0 - 217.0 mg/dL [facility] Protein (U) [Mass/Vol] 7 mg/dL [facility] Comment on above: No normal range esta blished. Urine Total Protein Creatinine Ratio 0.06 0.00 - 0.20 [facility] Protein,Tot,[place] 2024 Creatinine [Mass/Vol] 110.0 mg/dL Normal 28.0-217.0 [facility] Comment on above: Performed By: #### U RTPRT ####[facility] [place] [address] [facility] Director: Patricio Kelley MD Tot Prot. Conc. 7 mg/dL Normal [facility] Comment on above: Result Comment: No n ormal range established. Performed By: #### U RTPRT ####[address] , [place] [address]83 [facility] Director: Patricio Kelley MD TP/Cre Ratio 0.06 Normal 0.00-0.20 [facility] Comment on above: Performed By: #### U RTPRT ####[address] , [facility] Director: Patricio Kelley MD UA w/Reflex Cultureon 2024 Bilirubin, SemiQt,Ur Negative Normal NEG [facility] Comment on above: Performed By: #### U MICAO, UAX #### [facility] [address] [place], [place] 0548783 [employer] Teacher: Patricio Kelley MD Blood, Urine Negative Normal NEG [facility] Comment on above: Performed By: #### U MICAO, UAX #### [facility] [address] [place], [facility] [employer] Teacher: Patricio Kelley MD Clarity (U) SLIGHTLY CLOUDY Abnormal CLEAR [facility] Comment on above: Performed By: #### U MICAO, UAX #### [facility] [address] [place], [place] 089[address]83 [employer] Teacher: Patricio Kelley MD Color (U) [place] Abnormal YEL [facility] Comment on above: Performed By: #### U MICAO, UAX #### [facility] [address] [place], [place] 300[address]83 [employer] Teacher: Patricio Kelley MD Glucose Ql (U) Negative Normal NEG [facility] in Hospital Comment on above: Performed By: #### U MICAO, UAX #### [facility] [address] [place] [address] [place]. [place], [place] 3361483 [employer] Teacher: Patricio Kelley MD Ketones Ql (U) Negative Normal NEG [facility] in Hospital Comment on above: Performed By: #### U MICAO, UAX #### [facility] [address] [place] [address] Dr. [place], [place] 4823283 [employer] Teacher: Patricio Kelley MD Leukocyte esterase Test strip Ql (U) Negative Normal NEG [facility] Comment on above: Performed By: #### U MICAO, UAX #### [facility] [address] [place] [address] [place] [address] [employer] Teacher: Patricio Kelley MD Nitrite,Ur Negative Normal NEG [facility] Comment on above: Performed By: #### U MICAO, UAX #### [facility] [address] [place], [place] 5450283 [employer] Teacher: Patricio Kelley MD PH,Ur 7.5 Normal 5.0-9.0 [facility] Comment on above: Performed By: #### U MICAO, UAX #### [facility] [address] [place], [place] 36[address]83 [employer] Teacher: Patricio Kelley MD Protein Ql (U) Negative Normal NEG [facility] in Hospital Comment on above: Performed By: #### U MICAO, UAX #### [facility] [address] [place] [address] [employer] Teacher: Patricio Kelley MD Spec. Wing,Ur 1.015 Normal 1.010-1.020 [facility] Comment on above: Performed By: #### U MICAO, UAX #### [facility] [address] [place] [address] [employer] Teacher: Patricio Kelley MD Urobilinogen,Ur Normal Normal 0.0-1.0 [facility] Comment on above: Performed By: #### U MICAO, UAX #### [facility] [address] [place] [address] [place] [address] [employer] Teacher: Patricoi Kelley MD Urinalysis with Reflex to Cu ltureon 02-24-2025 Bilirubin Ql (U) Negative NEGATIVE [facility] Clarity (U) SLIGHTLY CLOUDY Abnormal Clear [facility] Sec[facility] urs [facility] Color (U) [place] Abnormal Yellow [facility] Glucose Test strip (U) [Mass/Vol] Negative NEGATIVE mg/dL [facility] Hemoglobin Auto test strip Ql (U) Negative NEGATIVE [facility] Interpretation and review of laboratory results Abnormal [facility] Ketones (U) [Mass/Vol] Negative NEGATIVE mg/dL [facility] Leukocyte esterase Test strip Ql (U) Negative NEGATIVE [facility] Nitrite Ql (U) Negative NEGATIVE [employer] [facility] pH (U) 7.5 [pH] 5.0 - 9.0 [facility] Protein (U) [Mass/Vol] Negative NEGATIVE mg/dL [facility] Specific gravity (U) [Rel density] 1.015 1.010 - 1.020 [facility] Urobilinogen Qn (U) Normal 0.0 - 1.0 EU/dL [facility] Urinalysis,Microon Amorphous sediment LM Ql (Urine sed) 2+ Abnormal NONE [facility] Comment on above: Performed By: #### U MICAO, UAX #### [facility] [address] [place] [address] [employer] Teacher: Patricio Kelley MD Bacteria TRACE Abnormal NONE [facility] Comment on above: Performed By: #### U MICAO, UAX #### [facility] [address] [place], [place] 6986683 [employer] Teacher: Patricio Kelley MD Epithelial cells LM Ql (Urine sed) 2 TO 5 Normal 0-25 [facility] Comment on above: Performed By: #### U MICAO, UAX #### [facility] [address] [place] [address] [employer] Teacher: Patricio Kelley MD Urine RBC's 0 TO 2 Normal 0-2 [facility] Comment on above: Performed By: #### U MICAO, UAX #### [facility] [address] [place] [address] [employer] Teacher: Patricio Kelley MD Urine WBC's 0 TO 2 Normal 0-5 [facility] Comment on above: Performed By: #### U MICAO, UAX #### [facility] [address] [place] [address] [employer] Teacher: Patricio Kelley MD 36on 02-16-2025 36 Spoke with patient raimundo ho was calling to request a echo at 24 weeks gestation scheduled. I informed her that we would be in touch once the order is placed and we are able to put her on the schedule to have this done. Patient is currently 20 weeks. Normal [facility] IGP,APTIMA HPV,AGE GDLNon AGE GDLN ACOG TESTING Note . [facility] Comment on above: TESTS RESULT FLAG UN ITS REF RANGE LAB Clinician Provided Cytology Information Source.............Cervix Other.............. No. of containers..01 ThinPrep Vial Age Keron SOLIS Cecille... 30-65 01 FLAG LEGEND: L-Low Normal,H-High Normal,LL-Alert Low,HH-Alert High <-Panic Low,>-Panic High,A-Abnormal,AA-Critical Abnormal Performed at: 01 =G [address] [place] [address] Jasmine Drew MD, HPV APTIMA Negative Negative [facility] Comment on above: This nucleic acid am plification test detects fourteen high- risk HPV types (16,18,31,33,35,39,45,51,52,56,58,59,66,68) without differentiation. Performed at: = - [address] [id number] [employer] Teacher: Jasmine Drew MD, Phone: [phone] Performed at: - [address] [id number] [employer] Teacher: Jasmine Drew MD, Phone: [phone] IGP, APTIMA HPV, RFX 16/18,45 Note . [facility] Comment on above: TESTS RESULT FLAG UN ITS REF RANGE LAB DIAGNOSIS: 02 NEGATIVE FOR INTRAEPITHELIAL LESION OR MALIGNANCY. Specimen adequacy: 02 Satisfactory for evaluation. No endocervical component is identified. An endocervical component is not commonly seen in the patient. Performed by: 02 Shahana Sanchez, Boiler Cleaner ([facility]) . 02 Note: Note 02 The Pap [...] <-Panic Low,>-Panic High,A-Abnormal,AA-Critical Abnormal Performed at: [address] [address] Jasmine Drew MD, SPATULA-ALONE CERVIX [facility] Healthcar e RECURRENT VAGINITIS (HTRX)on 02-11-2025 ATOPOBIUM VAGINAE 0 [facility] ATOPOBIUM VAGINAE Not detected [facility] BVAB 2,3 (BACTERIAL VAGINOSIS ASSOCIATED BACTERIA 2, 3); MOBILUNCUS SPP 0 [facility] BVAB 2,3 (BACTERIAL VAGINOSIS ASSOCIATED BACTERIA 2, 3); MOBILUNCUS SPP Not detected [facility] PATRICE ALBICANS, PARAPSILOSIS, TROPICALIS 0 [facility] PATRICE ALBICANS, PARAPSILOSIS, TROPICALIS Not detected [facility] Healthcare PATRICE GLABRATA 0 [facility] PATRICE GLABRATA Not detected [facility] PATRICE KRUSEI 0 [facility] PATRICE KRUSEI Not detected [facility] CHLAMYDIA TRACHOMATIS 0 [facility] CHLAMYDIA TRACHOMATIS Not [facility]INALIS [facility] GARDNERELLA VAGINALIS Not detected [facility] MEGASPHAERA (TYPES 1, 2) 0 [facility] MEGASPHA[facility]A (TYPES 1, 2) Not detected [facility] MYCOPLASMA GENITAL[facility]UM 0 [facility] MYCOPLASMA GENITALIUM Not detected [facility] NEISSERIA GONORRHOEAE 0 [facility] NEISSERIA GONORRHOEAE Not detected [facility] TRICHOMONAS VAGINALIS 0 [facility] TRICHOMONAS VAGINALIS Not detected [facility] Urinalysis macro (dipstick) panel (U)on 02-09-2025 Bilirubin, UA Negative Negative - 4(70) +++ mg/dL [facility] Blood, UA Negative Negative - 50 Stanford/mcL [facility] Clarity, UA Clear [facility] re Color, UA Yellow [facility] Glucose, UA Negative Negative - 1999(110) ++++ mg/dL [facility] Interpretation and review of laboratory results Normal [facility] re Ketones, UA Negative Negative - 160(16) ++++ mg/dL [facility] Leukocytes, UA Negative Negative - 500+++ Yoni/mcL [facility] Nitrite, UA Negative Negative - Positive [facility] pH, UA 7.5 5 - 9 [facility] Protein, UA Negative Negative - 1999(20) ++++ mg/dL [facility] Spec Grav, UA 1.02 1 - 1.03 [facility] Urobilinogen, UA 0.2 0.2 - 12 mg/dL [facility] Orders Onlyon 01-18-2025 Orders Only [id number] Rhiannon Ortiz 1995 F Date Provider Department Center 01/18/2025 [id number] CANNON PED [employer] No family history on file Normal [facility] 37on 12-27-2024 37 Exam looks unchanged BP was excellent I can still hear the aortic valve stenosis and regurgitation Need your outpatient echo echo at 24 weeks Next wisit is 4.5 months Normal [facility] Office Visiton 12-27-2024 Follow-up visit [id number] Rhiannon Ortiz 1995 F Date Provider Department Center 12/27/2024 BLAYNE JORDAN PED Luli Kim No family history on file Level of Service:57199 [place] OFFICE/OP CONSLTJ NEW/EST PT HIGH MDM 55 MINUTES Reason for Visit and Comments: Follow-up [928507] pregnency [Other] - Congenital aortic stenosis /regurgitation Normal [facility] ALL CBC WITH AUTO DIFFon BASOPHILS ABSOLUTE AUTO 0 [facility] Basophils/100 WBC (Bld) 0.3 % 0.2 - 2.0 % [facility] Eosinophils/100 WBC (Bld) 0.7 % Low 0.9 - 7.0 % [facility] Erythrocyte distribution width (RBC) [Ratio] 12.2 % 11.0 - 15.0 % [facility] Hematocrit (Bld) [Volume fraction] 37.2 % 36.0 - 48.0 % [facility] Hemoglobin (Bld) [Mass/Vol] 12.8 g/dL 12.0 - 16.0 g/dL [facility] IMMATURE GRANULOCYTES ABS AUTO 0.04 High [facility] Immature granulocytes/100 WBC (Bld) 0.4 % 0.0 - 0.5 % [facility] Interpretation and review of laboratory results [facility]normal [facility] LYMPHOCYTES ABSOLUTE AUTO 1.6 [facility] Lymphocytes/100 WBC (Bld) 15.3 % Low 20.5 - 60.0 % [facility] MCH (RBC) [Entitic mass] 27.4 pg 26.7 - 34.0 pg [facility] MCHC (RBC) [Mass/Vol] 34.4 g/dL 29.9 - 35.2 g/dL [facility] MCV (RBC) [Entitic vol] 79.7 fL Low 81.0 - 99.0 fL [facility] MONOCYTES ABSOLUTE AUTO 0.6 [facility] Monocytes/100 WBC (Bld) 5.4 % 1.7 - 12.0 % [facility] NEUTROPHILS ABSOLUTE AUTO 8.3 High [facility] Neutrophils/100 WBC (Bld) 77.9 % High 43.0 - 75.0 % [facility] Platelet mean volume (Bld) [Entitic vol] 11.6 fL 9.5 - 13.5 fL [facility] TBH EO # 0.1 [facility] Healthcar e TB PLT 232 [facility] Health[facility] e TB RBC 4.67 [facility] TB WBC 10.7 [facility] e CLINISYNC [facility] Health[facility] e HCG ( test) Ql (U)o n 12-10-2024 Interpretation and review of laboratory results Abnormal [facility] Preg Test, Ur Positive Negative [facility] care [facility] Health[facility] e US OB TRANSVAGINALon 025 US OB TRANSVAGINAL EXAM: US OB TRANSVAG INAL HISTORY: Dating. COMPARISON: None available. TECHNIQUE: Two-dimensional transvaginal grayscale ultrasound imaging of the pelvis was performed. Color Doppler evaluation of the ovaries was also performed. FINDINGS: The uterus demonstrates a normal homogeneous echotexture. The cervix measures 4.1 cm in length and the cervical os is closed. The right ovary measures 2.9 x 2.1 x 2.4 cm and demonstrates a normal echotexture. There is normal color Doppler flow. The left ovary measures 2.1 x 1.6 x 1.7 cm and demonstrates a normal echotexture. There is normal color and flow. No fluid is present within the cul-de-sac. There is a single, live intrauterine gestation identified with a heart rate of 166 beats per minute and a crown-rump length measurement of 3.5 cm, correlating to a gestational age of 10 weeks 2 days (+/- 6 days). There is no subchorionic hemorrhage visualized. A yolk sac is visualized. IMPRESSION: 1. Single, live intrauterine gestation 10 weeks, 2 days by LMP. Today's ultrasound measurements correlate with a gestational age of 10 weeks 2 days. TIERRA by today's ultrasound is 07/06/2025. 2. Normal color Doppler evaluation of the bilateral ovaries. Electronically Signed:Electronically signed by SYLVIA WICK II, MD, PHD at 11-Dec-2024 07:22:45 AM [facility] Normal Not Available Comment on above: Order Comment: US OB TRANSVAGINAL No LMP recorded. Urinalysis macro (dipstick) panel (U)on 12-10-2024 Bilirubin, UA Negative Negative - 4(70) +++ mg/dL [facility] Blood, UA Negative Negative - 50 Stanford/mcL [facility] Clarity, UA Clear [facility] Color, UA Yellow [facility] Health[facility] e Glucose, UA Negative Negative - 1999(110) ++++ mg/dL [facility] Interpretation and review of laboratory results Normal [facility] re Ketones, UA Negative Negative - 160(16) ++++ mg/dL [facility] Leukocytes, UA Negative Negative - 500+++ Yoni/mcL [facility] Nitrite, UA Negative Negative - Positive [facility] pH, UA 5.5 5 - 9 [facility] e Protein, UA Negative Negative - 1999(20) ++++ mg/dL [facility] Spec Grav, UA 1.025 1 - 1.03 [facility] Urobilinogen, UA 0.2 0.2 - 12 mg/dL [facility] Health[facility] e MRI BRAIN W WO CONTRASTon MRI BRAIN W WO CONTRAST EXAMINATION: MRI OF THE BRAIN WITHOUT AND WITH CONTRAST 06/09/2024 12:35 pm TECHNIQUE: Multiplanar multisequence MRI of the head/brain was performed without and with the administration of intravenous contrast. COMPARISON: None. HISTORY: ORDERING SYSTEM PROVIDED HISTORY: Other specified abnormal findings of blood coal cager PROVIDED HISTORY: STAT Creatinine as needed:->No FINDINGS: [...] Tristen Valdes MD 06/10/24 Final result Normal [facility] DHEAon 06-01-2024 DHEA 8.631 ng/mL High 1.330-7.780 [facility] Comment on above: Result Comment: (NOT E) INTERPRETIVE INFORMATION: Dehydroepiandrosterone, Females 18 years and older: Postmenopausal: 0.60-5.73 ng/mL REFERENCE INTERVAL: Dehydroepiandrosterone by TMS Access complete set of age- and/or gender-specific reference intervals for this test in the [employer] Laboratory Test Directory ([facility]). This test was developed and its performance characteristics determined by [employer]. It has not been cleared or approved by the [place] Food and Drug Administration. This test was performed in a CLIA certified laboratory and is intended for clinical purposes. Performed By: [facility] [address] [place] [address] Mortgage Loan Processing Clerk: John Maradiaga MD, PhD CLIA Number: [id number] Performed By: #### F SH, PROL, GLYHGB, LH, FT4, DHES ####[address] [place] [address] Lab Director: Eliecer Barreto MD#### ADHEA ####[address] [address] lab Director: Aguilar Ballard MD#### TSH, BHCG, CDP ####[facility] [place] [address] Lab Director: Patricio Kelley MD US PELVIS COMPLETEon 024 US PELVIS [...] Adonay Frank MD 05/29/24 Final result Normal [facility] US Pelvison 05-29-2024 1. Myometrial heterogeneity that could be seen with adenomyosis, incompletely evaluated due to lack of transvaginal imaging. 2. Normal transabdominal sonographic appearance of the ovaries. [facility]IS CONSOLIDATED EXAMINATION: PELVIC ULTRASOUND 05/28/2024 9:17 [...] degree of vascularity. FREE FLUID: None visualized. [facility] CON[facility] Adonay Frank MD - 05/29/2024 EXAMINATION: PELVIC ULTRASOUND 05/28/2024 [...] Normal transabdominal sonographic appearance of the ovaries. [facility] US PelvisOrdered By: Adonay Frank on 05-29-2024 [facility] Work Phone: US Pelvison 05-28-2024 Radiology Study observation (narrative) [facility] CBC with Auto Differentialon 05-27-2024 Basophils (Bld) [#/Vol] 0.04 10*3/uL [facility] Basophils/100 WBC (Bld) 0 % 0 - 2 % [facility] Eosinophils (Bld) [#/Vol] 0.30 10*3/uL [facility] Eosinophils/100 WBC (Bld) 3 % 1 - 4 % [facility] Erythrocyte distribution width (RBC) [Ratio] 12.7 % 11.8 - 14.4 % [facility] Hematocrit (Bld) [Volume fraction] 42.2 % 36.3 - 47.1 % [facility] Hemoglobin (Bld) [Mass/Vol] 14.5 g/dL 11.9 - 15.1 g/dL [facility] Immature granulocytes (Bld) [#/Vol] 0.04 10*3/uL [facility] Immature granulocytes/100 WBC (Bld) 0 % 0 [facility] Interpretation and review of laboratory results Abnormal [facility] Lymphocytes/100 WBC (Bld) 23 % Low 24 - 43 % [facility] Lymphocytes/100 WBC (Bld) 2.20 % [facility] MCH (RBC) [Entitic mass] 27.6 pg 25.2 - 33.5 pg [facility] MCHC (RBC) [Mass/Vol] 34.4 g/dL 28.4 - 34.8 g/dL [facility] MCV (RBC) [Entitic vol] 80.4 fL Low 82.6 - 102.9 fL [facility] Monocytes/100 WBC (Bld) 6 % 3 - 12 % [facility] Monocytes/100 WBC (Bld) 0.54 % [facility] Neutrophils/100 WBC (Bld) 68 % High 36 - 65 % [facility] Nucleated RBC/100 WBC (Bld) [Ratio] 0.0 % 0.0 per 100 WBC [facility] Platelet mean volume (Bld) [Entitic vol] 11.5 fL 8.1 - 13.5 fL [facility] Platelets (Bld) [#/Vol] 246 10*3/uL [facility] RBC (Bld) [#/Vol] 5.25 10*6/uL High 3.95 - 5.1 1 m/uL [facility] Segmented neutrophils/100 WBC (Bld) 6.39 % [facility] WBC other (Bld) [#/Vol] 9.5 [facility] CBC with Diffon 05-27-2024 Abs. Basophil 0.04 k/uL Normal 0.00-0.20 [facility] Comment on above: Performed By: #### F SH, PROL, GLYHGB, LH, FT4, DHES #### [facility] [address] [place], [place] [id number] Stage[employer] Teacher: Eliecer Barreto MD #### ADHEA #### [facility] [address] [place] [address] [employer]craft Teacher: Aguilar Ballard MD #### TSH, BHCG, CDP #### [facility] [address] [place] [address] [employer]craft Teacher: Patricio Kelley MD Abs.Imm.Granulocyt e 0.04 k/uL Normal 0.00-0.30 [facility] Comment on above: Performed By: #### F SH, PROL, GLYHGB, LH, FT4, DHES #### [address] [address] Stagecraft Teacher: Eliecer Barreto MD #### ADHEA #### [facility] [address] [place] [address] Stagecraft Teacher: Aguilar Ballard MD #### BISHNU WILSON, CDP #### [address] [place], [place] [address] [employer] Teacher: Patricio Kelley MD Abs.Neutrophil (Seg) 6.39 k/uL Normal 1.50-8.10 [facility] Comment on above: Performed By: #### F SH, PROL, GLYHGB, LH, FT4, DHES #### [address] [address] Stagecraft Teacher: Eliecer Barreto MD #### ADHEA #### [facility] [address] [place], [place] [id number] Stage[employer] Teacher: Aguilar Ballard MD #### BISHNU WILSON, CDP #### [address] [place] [id number] [employer] Teacher: Patricio Kelley MD Basophils/100 WBC (Bld) 0 % Normal 0-2 [facility] Comment on above: Performed By: #### F SH, PROL, GLYHGB, LH, FT4, DHES #### [address] [address] Stagecraft Teacher: Eliecer Barreto MD #### ADHEA #### [facility] [address] [place], [place] [id number] [employer] Teacher: Aguilar Ballard MD #### TSH BHCG, CDP #### [address] [place], [place] [address] [employer] Teacher: Patricio Kelley MD Eosinophils (Bld) [#/Vol] 0.30 10*3/uL Normal 0.00-0.44 [facility] Comment on above: Performed By: #### F SH, PROL, GLYHGB, LH, FT4, DHES #### [address] [address] Stagecraft Teacher: Eliecer Barreto MD #### ADHEA #### [facility] [address] [place], [place] [id number] Stage[employer] Teacher: Aguilar Ballard MD #### TSH, BHCG, CDP #### [address] [place] [address] Stagecraft Teacher: Patricio Kelley MD Eosinophils/100 WBC (Bld) 3 % Normal 1-4 [facility] Comment on above: Performed By: #### F SH, PROL, GLYHGB, LH, FT4, DHES #### [address] [address] Stagecraft Teacher: Eliecer Barreto MD #### ADHEA #### [facility] [address] [place], [place] [id number] Stage[employer] Teacher: Aguilar Ballard MD #### TSH, BHCG, CDP #### [address] [place] [address] Stagecraft Teacher: Patricio Kelley MD Erythrocyte distribution width (RBC) [Ratio] 12.7 % Normal 11.8-14.4 [facility] Comment on above: Performed By: #### F SH, PROL, GLYHGB, LH, FT4, DHES #### [address] [address] Stagecraft Teacher: Eliecer Barreto MD #### ADHEA #### [facility] [address] [place] [address] Stagecraft Teacher: Aguilar Ballard MD #### TSH, BHCG, CDP #### [address] [place], [place] [address] Stagecraft Teacher: Patricio Kelley MD Hematocrit (Bld) [Volume fraction] 42.2 % Normal 36.3-47.1 [facility] Comment on above: Performed By: #### F SH, PROL, GLYHGB, LH, FT4, DHES #### [address] [address] Stagecraft Teacher: Eliecer Barreto MD #### ADHEA #### [facility] [address] [place] [address] Stagecraft Teacher: Aguilar Ballard MD #### BISHNU WILSON, CDP #### [address] [place] [address] Stagecraft Teacher: Patricio Kelley MD Hemoglobin (Bld) [Mass/Vol] 14.5 g/dL Normal 11.9-15.1 [facility] Comment on above: Performed By: #### F SH, PROL, GLYHGB, LH, FT4, DHES #### [address] [address] Stagecraft Teacher: Eliecer Barreto MD #### ADHEA #### [facility] [address] [place] [address] Stagecraft Teacher: Aguilar Ballard MD #### AMARI WILSONCKana, CDP #### [address] [place], [place] [address]83 Stagecraft Teacher: Patricio Kelley MD Immature granulocytes/100 WBC (Bld) 0 % Normal 0 [facility] Comment on above: Performed By: #### F SH, PROL, GLYHGB, LH, FT4, DHES #### [facility] [address] [place] [address] Stagecraft Teacher: Eliecer Barreto MD #### ADHEA #### [facility] [address] [place] [address] Stagecraft Teacher: Aguilar Ballard MD #### TSH BHCG, CDP #### [facility] [address] [place], [place] [id number] Stagecraft Teacher: Patricio Kelley MD Lymphocytes (Bld) [#/Vol] 2.20 10*3/uL Normal 1.10-3.70 [facility] Comment on above: Performed By: #### F SH, PROL, GLYHGB, LH, FT4, DHES #### [address] [id number] Stage[employer] Teacher: Eliecer Barreto MD #### ADHEA #### [facility] [address] [place], [place] [id number] Stagecraft Teacher: Aguilar Ballard MD #### STEVE, MARIANNG, CDP #### [facility] [address] [place] [id number] Stagecraft Teacher: Patricio Kelley MD Lymphocytes/100 WBC (Bld) 23 % Low 24-43 [facility] Comment on above: Performed By: #### F SH, PROL, GLYHGB, LH, FT4, DHES #### [address] [address] Stagecraft Teacher: Eliecer Barreto MD #### ADHEA #### [facility] [address] [place] [address] Stagecraft Teacher: Aguilar Ballard MD #### TSH, BHCG, CDP #### [facility] [address] [place] [address] Stagecraft Teacher: Patricio Kelley MD MCH (RBC) [Entitic mass] 27.6 pg Normal 25.2-33.5 [facility] Comment on above: Performed By: #### F SH, PROL, GLYHGB, LH, FT4, DHES #### [address] [place] [address] Stagecraft Teacher: Eliecer Barreto MD #### ADHEA #### [facility] [address] [place], [place] [id number] Stagecraft Teacher: Aguilar Ballard MD #### TSH, BHCG, CDP #### [address] [place] [address] Stagecraft Teacher: Patricio Kelley MD MCHC (RBC) [Mass/Vol] 34.4 g/dL Normal 28.4-34.8 [facility] Comment on above: Performed By: #### F SH, PROL, GLYHGB, LH, FT4, DHES #### [address] [address] Stagecraft Teacher: Eliecer Barreto MD #### ADHEA #### [facility] [address] [place] [id number] Stage[employer] Teacher: Aguilar Ballard MD #### TSH, BHCG, CDP #### [address] [place] [address] Stagecraft Teacher: Patricio Kelley MD MCV (RBC) [Entitic vol] 80.4 fL Low 82.6-102.9 [facility] Comment on above: Performed By: #### F SH, PROL, GLYHGB, LH, FT4, DHES #### [address] [address] Stagecraft Teacher: Eliecer Barreto MD #### ADHEA #### [facility] [address] [place], [place] [id number] Stagecraft Teacher: Aguilar Ballard MD #### TSH, BHCG, CDP #### [address] [place], [place] [id number] Stagecraft Teacher: Patricio Kelley MD Monocytes (Bld) [#/Vol] 0.54 10*3/uL Normal 0.10-1.20 [facility] Comment on above: Performed By: #### F SH, PROL, GLYHGB, LH, FT4, DHES #### [facility] [address] [place] [address] Stagecraft Teacher: Eliecer Barreto MD #### ADHEA #### [facility] [address] [place], [place] [phone] Stagecraft Teacher: Aguilar Ballard MD #### TSH, BHCG, CDP #### [address] [place], [place] [id number] Stagecraft Teacher: Patricio Kelley MD Monocytes/100 WBC (Bld) 6 % Normal 3-12 [facility] Comment on above: Performed By: #### F SH, PROL, GLYHGB, LH, FT4, DHES #### [facility] [address] [place] [address] Stagecraft Teacher: Eliecer Barreto MD #### ADHEA #### [facility] [address] [place], [place] [phone] Stagecraft Teacher: Aguilar Ballard MD #### TSH, BHCG, CDP #### [address] [place], [place] 539[address]83 Stagecraft Teacher: Patricio Kelley MD Neutrophil (Seg) 68 % High 36-65 [facility] Comment on above: Performed By: #### F SH, PROL, GLYHGB, LH, FT4, DHES #### [facility] [address] [place] [address] Stagecraft Teacher: Eliecer Barreto MD #### ADHEA #### [facility] [address] [place], [place] [id number] Stagecraft Teacher: Aguilar Ballard MD #### TSH, BHCG, CDP #### [address] [place] [address] Stagecraft Teacher: Patricio Kelley MD NRBC Automated 0.0 per 100 WBC Normal 0.0 [facility] Comment on above: Performed By: #### F SH, PROL, GLYHGB, LH, FT4, DHES #### [facility] [address] [place], [place] [address] Stagecraft Teacher: Eliecer Barreto MD #### ADHEA #### [facility] [address] [place], [place] [id number] Stagecraft Teacher: Aguilar Ballard MD #### TSH, BHCG, CDP #### [facility] [address] [place] [address] Stagecraft Teacher: Patricio Kelley MD Platelet mean volume (Bld) [Entitic vol] 11.5 fL Normal 8.1-13.5 [facility] Comment on above: Performed By: #### F SH, PROL, GLYHGB, LH, FT4, DHES #### [address] [address] Stagecraft Teacher: Eliecer Barreto MD #### ADHEA #### [facility] [address] [place], [place] [id number] Stagecraft Teacher: Aguilar Ballard MD #### TSH, BHCG, CDP #### [facility] [address] [place] [address] [place] [address] Stagecraft Teacher: Patricio Kelley MD Platelets (Bld) [#/Vol] 246 10*3/uL Normal 138-453 [facility] Comment on above: Performed By: #### F SH, PROL, GLYHGB, LH, FT4, DHES #### [address] [address] Stagecraft Teacher: Eliecer Barreto MD #### ADHEA #### [facility] [address] [place], [place] [id number] Stagecraft Teacher: Aguilar Ballard MD #### TSH, BHCG, CDP #### [facility] [address] [place], [place] [address] Stagecraft Teacher: Patricio Kelley MD RBC (Bld) [#/Vol] 5.25 10*6/uL High 3.95-5.11 [facility] Comment on above: Performed By: #### F SH, PROL, GLYHGB, LH, FT4, DHES #### [facility] [address] [place] [address] Stagecraft Teacher: Eliecer Barreto MD #### ADHEA #### [facility] [address] [place], [place] [id number] Stagecraft Teacher: Aguilar Ballard MD #### TSH, BHCG, CDP #### [address] [place], [place] [id number] Stagecraft Teacher: Patricio Kelley MD WBC (Bld) [#/Vol] 9.5 10*3/uL Normal 3.5-11.3 [facility] Comment on above: Performed By: #### F SH, PROL, GLYHGB, LH, FT4, DHES #### [facility] [address] [place] [address] Stagecraft Teacher: Eliecer Barreto MD #### ADHEA #### [facility] [address] [place] [address] Stagecraft Teacher: Aguilar Ballard MD #### TSH, BHCG, CDP #### [address] [place], [place] [id number] Stagecraft Teacher: Patricio Kelley MD DHEA Sulfateon 05-27-2024 DHEA Sulfate 417.0 ug/dL High 98.8-340 [facility] Comment on above: Performed By: #### F SH, PROL, GLYHGB, LH, FT4, DHES ####[facility] [id number] [place], [place] [id number] [facility] Director: Eliecer Barreto MD#### ADHEA ####[facility] [address] [place] [address] lab Director: Aguilar Ballard MD#### TSH, BISHNU, CDP ####[address] [place] [address] lab Director: Patricio Kelley MD DHEA-Sulfateon 05-27-2024 DHEA-S [Mass/Vol] 417.0 ug/dL High 98.8 - 340 ug/dL [facility] Interpretation and review of laboratory results Abnormal [facility] Follicle Stim. Hormon 2023 Follicle Stim. Horm 3.2 mIU/mL Normal [facility] Comment on above: Result Comment: Refe rence Range: Male: 1.5-12.4 Ovulating Female: Follicular Phase 3.5-12.5 Ovulation Phase 4.7-21.5 Luteal Phase 1.7-7.7 Postmenopausal Female: 25.8-134.8 Performed By: #### F SH, PROL, GLYHGB, LH, FT4, DHES ####[address] [place], [place] [id number] lab Director: Eliecer Barreto MD#### ADHEA ####[facility] [address] [place] [address] lab Director: Aguilar Ballard MD#### TSH, BHLeobardoG, CDP ####[address] [place] [address] lab Director: Patricio Kelley MD Follicle Stimulating Hormone on 05-27-2024 Follitropin Qn 3.2 m[IU]/mL mIU/mL [facility] Comment on above: Reference Range: Male: 1.5-12.4 Ovulating Female: Follicular Phase 3.5-12.5 Ovulation Phase 4.7-21.5 Luteal Phase 1.7-7.7 Postmenopausal Female: 25.8-134.8 HCG, Quanton 05-27-2024 HCG, Quant <1.0 Normal <5 [facility] Comment on above: Result Comment: Non-preg premeno <=5 Postmeno <=8 Male <=3 If HCG results do not concur with clinical observations, additional testing to confirm results is recommended. Performed By: #### F SH, PROL, GLYHGB, LH, FT4, DHES ####[facility] [id number] [place] [address] Lab Director: Eliecer Barreto MD#### ADHEA ####[facility] [address] [place], [place] [id number] Lab Director: Aguilar Ballard MD#### TSH, BHCG, CDP ####[facility] [place] , [place] 0378[address] Lab Director: Patricio Kelley MD HCG, Quantitative, on 05-27-2024 HCG.beta subunit Qn NINF [facility] Comment on above: Non-preg premeno <=5 Postmeno <=8 Male <=3 If HCG results do not concur with clinical observations, additional testing to confirm results is recommended. Hemoglobin A1Con 05-27-2024 Average glucose Estimated from glycated hemoglobin (Bld) [Mass/Vol] 97 mg/dL [facility] Comment on above: The ADA and AACC rec ommend providing the estimated average glucose result to permit better patient understanding of their HBA1c result. HbA1c (Bld) [Mass fraction] 5.0 % 4.0 - 6.0 % [facility] Glucose [Mass/Vol] 97 mg/dL Normal [facility] Comment on above: Result Comment: The ADA and AACC recommend providing the estimated average glucose result to permit better patient understanding of their HBA1c result. Performed By: #### F SH, PROL, GLYHGB, LH, FT4, DHES ####[address] [place] [address] Lab Director: Eliecer Barreto MD#### ADHEA ####[facility] [address] [place], [place] [id number] lab Director: Aguilar Ballard MD#### BISHNU WILSON, CDP ####[address] [place] [address] lab Director: Patricio Kelley MD HbA1c (Bld) [Mass fraction] 5.0 % Normal 4.0-6.0 [facility] Comment on above: Performed By: #### F SH, PROL, GLYHGB, LH, FT4, DHES ####[facility] [address] [place], [place] [id number] lab Director: Eliecer Barreto MD#### ADHEA ####[facility] [address] [place], [place] [id number] lab Director: Aguilar Ballard MD#### BISHNU WILSON, CDP ####[address] [place] [address] Lab Director: Patricio Kelley MD Luteinizing Hormoneon 2023 Interpretation and review of laboratory results Abnormal [facility] Lutropin Qn 11.0 m[IU]/mL [facility] Comment on above: Reference Range: Male: 1.7-8.6 Ovulating Female: Follicular Phase 2.4-12.6 Ovulation Phase 14.0-95.6 Luteal Phase 1.0-11.4 Postmenopausal Female: 7.7-58.5 Luteinizing Hormone 11.0 mIU/mL [facility] 1.7-8.6 [facility] Comment on above: Result Comment: Refe rence Range: Male: 1.7-8.6 Ovulating Female: Follicular Phase 2.4-12.6 Ovulation Phase 14.0-95.6 Luteal Phase 1.0-11.4 Postmenopausal Female: 7.7-58.5 Performed By: #### F SH, PROL, GLYHGB, LH, FT4, DHES ####[facility] [address] [place], [place] [id number] Lab Director: Eliecer Barreto MD#### ADHEA ####[facility] [address] [place] [id number] lab Director: Aguilar Ballard MD#### TSH, BHCG, CDP ####[address] [place] [address] Lab Director: Patricio Kelley MD No Panel Informationon 05-27 [facility] Prolactinon 05-27-2024 Interpretation and review of laboratory results Abnormal [facility] Prolactin [Mass/Vol] 37.70 ng/mL High 4.79 - 23.3 ng/mL [facility] Comment on above: The presence of macr oprolactin may cause interference in female patients with various endocrinological diseases or during . [facility] Prolactin 37.70 ng/mL High 4.79-23.3 [facility] Comment on above: Result Comment: The presence of macroprolactin may cause interference in female patients with various endocrinological diseases or during . Performed By: #### F SH, PROL, GLYHGB, LH, FT4, DHES ####[facility] [place], [place] [id number] Lab Director: Eliecer Barreto MD#### ADHEA ####[facility] [address] [place] [id number] Lab Director: Aguilar Ballard MD#### TSH, BHCG, CDP ####[address] [place] [address] Lab Director: Patricio Kelley MD T4, Freeon 05-27-2024 Free T4 [Mass/Vol] 1.5 ng/dL 0.92 - 1. 68 ng/dL [facility] TSHon 05-27-2024 TSH Qn 1.42 m[IU]/L [facility] Thyroid Stim. Horm.on 2023 Thyroid Stim. Horm. 1.42 uIU/mL Normal 0.30-5.00 [facility] Comment on above: Performed By: #### F SH, PROL, GLYHGB, LH, FT4, DHES ####[facility] [address] [place] [address] Lab Director: Eliecer Barreto MD#### ADHEA ####[facility] [address] [place], [place] [id number] lab Director: Aguilar Ballard MD#### TSH, BHCG, CDP ####[address] [place] [address] lab Director: Patricio Kelley MD Thyroxine, Freeon 05-27-2024 Thyroxine, Free 1.5 ng/dL Normal 0.92-1.68 [facility] Comment on above: Performed By: #### F SH, PROL, GLYHGB, LH, FT4, DHES ####[address] [place] [address] lab Director: Eliecer Barreto MD#### ADHEA ####[facility] [address] [place] [id number] lab Director: Aguilar Ballard MD#### TSH, BHCG, CDP ####[address] [place] [address] lab Director: Patricio Kelley MD NON OB TRANSVAGINALon NON OB TRANSVAGINAL Table formatting from the original result was not included. Misha Metz on 02/09/2024 11:23 AM EDT UTERUS:anteverted, homogeneous echo pattern ENDO:7mm in thickness RT. OVARY:seen, multiple follicles visualized LT. OVARY:seen, complex finding (probable resolving cyst) noah- 1.9cm x 1.6cm x 1.4cm Interpreted by: Nickolas Swenson MD Signed by: Nickolas Swenson MD 02/09/24 Final result Normal [facility] NON OB TRANSVAGINALon US NON OB TRANSVAGINAL [...] Nickolas Swenson MD 11/11/23 Final result Normal [facility] US NON OB TRANSVAGINALon US NON OB [...] Gisela Machado DO 08/20/23 Final result Normal [facility] Microscopic Urinalysison Epithelial Cells UA 0 TO 2 [facility] RBC clumps Auto (Urine sed) [#/Area] GREATER THAN 100 [facility] WBC, UA None [facility] , urineon 3 Beta HCG ( test) Ql (U) Negative NEGATIVE [facility] Comment on above: Specimens with hCG l evels near the threshold of the test (25 mIU/mL) may give a negative or indeterminate result. In such cases, another test should be performed with a new specimen in 48-72 hours. If early is suspected clinically in this setting, correlation with quantitative serum b-hCG level is suggested. Secpanel has confirmed the use of plasma for this test. This has not been cleared or approved by the U.S. Food and Drug Administration. The FDA has determined that such clearance is not necessary. [facility] 01-19-2023 Bilirubin Urine Negative NEGATIVE [facility] Color, UA Yellow Yellow [facility] Glucose Auto test strip (U) [Mass/Vol] Negative NEGATIVE [facility] Interpretation and review of laboratory results Abnormal [facility] Ketones (U) [Mass/Vol] Negative NEGATIVE [facility] Leukocyte esterase Auto test strip Ql (U) Negative NEGATIVE [facility] Nitrite Auto test strip Ql (U) Negative NEGATIVE [facility] Protein (U) [Mass/Vol] 6.0 mg/dL 5.0 - 9.0 [facility] Protein (U) [Mass/Vol] Negative NEGATIVE [facility] Specific Wing, UA High 1.010 - 1.020 [facility] Turbidity UA Clear Clear [facility] Urine Hgb 3+ Abnormal NEGATIVE [facility] Urobilinogen, Urine Normal Normal [facility] Wet Prep, Genitalon 01-20-20 Interpretation and review of laboratory results Abnormal [facility] Microorganism or agent identified Nom (Unsp spec) NO CLUE CELLS SEEN [facility] Microorganism or agent identified Nom (Unsp spec) NO YEAST OBSERVED [facility] Microorganism or agent identified Nom (Unsp spec) TRICHOMONAS Abnormal [facility] Specimen Description .VAGINA [facility] Abidrahman 11-29-2021 [facility] Telephone (REMIGIO) ----- EDGAR ORTIZ ([id number]) 1995 F Date Time Provider Department 11/29/21 ALBINO KILGORE During your visit today, we recorded the following information about you: Albino Kilgore, BITA 11/29/2021 11:36 AM Signed Received call from who stating she has Von Willebrand's disease [...] Fully Assessed Reason for Visit: Medication Question [5548] Prescriptions as of 11/29/2021 - Desmopressin Acetate (STIMATE) 150 mcg/spray (0.1 mL) spry Use 1 Palmer in the nose as needed. - Desmopressin Acetate (STIMATE) 150 mcg/spray spry Use 1 Palmer in the nose as needed. - Desmopressin Acetate (STIMATE) 150 mcg/spray Samoset Use 1 Palmer in the nose once daily as needed. [...] Status:Closed by ALBINO KILGORE on 11/29/21 Normal [facility] COVID-19, MOLECULARon 2020 SARS-CoV-2 (COVID-19) Ab IA Ql Not detected Normal Not Detected [facility] Comment on above: Result Comment: [...] at the following links: For Healthcare Providers: https://www.[facility].gov/media/090348/download For Patients: https://www.fda.gov/media/730481/download , Urineon 0 Beta HCG ( test) Ql (U) Negative NEGATIVE [place], [place] Comment on above: Specimens with hCG l evels near the threshold of the test (25 mIU/mL) may give a negative or indeterminate result. In such cases, another test should be performed with a new specimen in 48-72 hours. If early is suspected clinically in this setting, correlation with quantitative serum b-hCG level is suggested. Secpanel has confirmed the use of plasma for this test. This has not been cleared or approved by the U.S. Food and Drug Administration. The FDA has determined that such clearance is not necessary. Urinalysis with Microscopico n 05-16-2020 Amorphous, UA NOT REPORTED None [facility]- [place], [place] Bacteria, UA NOT REPORTED None [facility], [place] Bilirubin Urine Negative NEGATIVE [facility], [place] Casts UA NOT REPORTED /LPF [facility], [place] Color, UA YELLOW YELLOW [place], [place] Crystals, UA NOT REPORTED None /HPF [facility], [place] Epithelial Cells UA 0 TO 2 [place], [place] Glucose, Ur Negative NEGATIVE [place] Interpretation and review of laboratory results Abnormal [place], [place] Ketones Ql (U) Negative NEGATIVE [facility] [place], [place] Leukocyte esterase Test strip Ql (U) Negative NEGATIVE [facility], [place] Mucus, UA NOT REPORTED None [facility], [place] Nitrite, Urine Negative NEGATIVE [facility], [place] Other Observations UA NOT REPORTED NOT REQ. [facility], [place] pH, UA 7.0 [place], [place] Protein (U) [Mass/Vol] Negative NEGATIVE [facility], [place] RBC (U) [#/Vol] None [facility]- [place] Renal Epithelial, UA NOT REPORTED 0 /HPF [place], [place] Specific Wing, UA <1.005 Low [place], [place] Trichomonas, UA NOT REPORTED None [facility] [place] Turbidity UA CLEAR CLEAR [place], [place] Urinalysis Comments NOT REPORTED [place] Urine Hgb Negative NEGATIVE [place] Urobilinogen, Urine Normal Normal [place] WBC, UA 0 TO 2 [place] Yeast, UA NOT REPORTED None [facility], [place] - [place], [place] Otheron 12-01-2019 Evidence of mild bronchitis or atypical infection in the lingula. Workstation ID: [id number] [facility] EXAMINATION: XR CHES T AP/PA AND [...] No consolidation. No pleural effusion or pneumothorax. [facility] Interface, Rad In Fu ji Speechq [...] infection in the lingula. Workstation ID: [id number] [facility] POC INFLUENZA A/B MOLECULARo n 10-18-2019 FLUAV Ag Ql (Nph) Negative Negative [facility] FLUBV Ag Ql (Nph) Positive Abnormal Negative [facility] Interpretation and review of laboratory results Abnormal [facility] Vital Signs Date Time Vital Sign Value Performing Clinician Faci lity 04-19-2025 11:45-0400 Body mass index (BMI) [Ratio] 36.58 kg/m2 Leyla Matt RHIANNON Work Phone: [facility] 04-19-2025 11:45-0400 Body weight 90.72 kg Leyla Matt PA Work Phone: [facility] 04-19-2025 11:45-0400 Diastolic blood pressure 74 mm[Hg] Leyla Matt PA Work Phone: [facility] 04-19-2025 11:45-0400 Systolic blood pressure 122 mm[Hg] Leyla Matt PA Work Phone: [facility] 03-14-2025 13:41-0400 Body mass index (BMI) [Ratio] 36.03 kg/m2 Jung Ama DO Work Phone: [facility] 03-14-2025 13:41-0400 Body weight 89.36 kg Jung Ama DO Work Phone: [facility] 03-14-2025 13:41-0400 Diastolic blood pressure 72 mm[Hg] Jung Ama DO Work Phone: [facility] 03-14-2025 13:41-0400 Systolic blood pressure 114 mm[Hg] Jung Ama DO Work Phone: [facility] 02-24-2025 22:25-0400 Body mass index (BMI) [Ratio] 36.21 kg/m2 Fior Mendez DO Work Phone: [facility] 02-24-2025 22:25-0400 Body temperature 97.9 [degF] Fior Mendez DO Work Phone: [employer] 02-24-2025 22:25-0400 Body weight 89.81 kg Fior Mendez DO Work Phone: [employer] [facility] 02-24-2025 22:25-0400 Diastolic blood pressure 90 mm[Hg] Fior Mendez DO Work Phone: [facility] 02-24-2025 22:25-0400 Heart rate 79 /min Fior Mendez DO Work Phone: [facility] [employer] 02-24-2025 22:25-0400 Respiratory rate 17 /min Fior Mendez DO Work Phone: [facility] [employer] 02-24-2025 22:25-0400 SaO2% (BldA) [Mass fraction] 99 % Fior Mendez DO Work Phone: [facility] [employer] 02-24-2025 22:25-0400 Systolic blood pressure 134 mm[Hg] Fior Mendez DO Work Phone: [facility] 02-09-2025 17:14-0400 Body mass index (BMI) [Ratio] 35.45 kg/m2 Brian Shore [employer]AIL [employer]NAGER Work Phone: [facility] 02-09-2025 17:14-0400 Body weight 87.91 kg Brian Shore [employer]AIL [employer] MANAGER Work Phone: [facility] 02-09-2025 17:14-0400 Diastolic blood pressure 70 mm[Hg] Brian Shore [employer]AIL [employer] MANAGER Work Phone: [facility] 02-09-2025 17:14-0400 Systolic blood pressure 110 mm[Hg] Brian Shore [employer]AIL [employer] MANAGER Work Phone: [facility] 01-06-2025 10:06-0400 Body mass index (BMI) [Ratio] 34.9 kg/m2 Jung Ama DO Work Phone: [facility] 01-06-2025 10:06-0400 Body weight 86.55 kg Jung Ama DO Work Phone: [facility] 01-06-2025 10:06-0400 Diastolic blood pressure 74 mm[Hg] Jung Ama DO Work Phone: [facility] 01-06-2025 10:06-0400 Systolic blood pressure 116 mm[Hg] Jung Ama DO Work Phone: [facility] 12-10-2024 10:31-0500 Body mass index (BMI) [Ratio] 34.5 kg/m2 Nom Nurse [facility] 12-10-2024 10:31-0500 Body weight 85.55 kg [facility] Nurse [facility] 12-10-2024 10:31-0500 Diastolic blood pressure 70 mm[Hg] [facility] Nurse [facility] 12-10-2024 10:31-0500 Systolic blood pressure 120 mm[Hg] Nom Nurse [facility] 06-02-2024 13:03-0400 Body height 157.5 cm Jung Ama DO Work Phone: [facility] 06-02-2024 13:03-0400 Body mass index (BMI) [Ratio] 36.03 kg/m2 Jung Ama DO Work Phone: [facility] 06-02-2024 13:03-0400 Body weight 89.36 kg Jung Ama DO Work Phone: [facility] 06-02-2024 13:03-0400 Diastolic blood pressure 72 mm[Hg] Jung Ama DO Work Phone: [facility] 06-02-2024 13:03-0400 Systolic blood pressure 118 mm[Hg] Jung Ama DO Work Phone: [facility] 01-19-2023 21:23-0400 Body mass index (BMI) [Ratio] 33.84 kg/m2 Fior Mendez DO Work Phone: [facility] 01-19-2023 21:23-0400 Body temperature 97 [degF] Fior Mendez DO Work Phone: [facility] 01-19-2023 21:23-0400 Body weight 83.92 kg Fior Mendez DO Work Phone: [facility] 01-19-2023 21:23-0400 Diastolic blood pressure 95 mm[Hg] Fior Mendez DO Work Phone: [facility] 01-19-2023 21:23-0400 Heart rate 87 /min Fior Mendez DO Work Phone: [facility] 01-19-2023 21:23-0400 Respiratory rate 16 /min Fior Mendez DO Work Phone: [facility] 01-19-2023 21:23-0400 SaO2% (BldA) [Mass fraction] 98 % Fior Mendez DO Work Phone: [facility] 01-19-2023 21:23-0400 Systolic blood pressure 144 mm[Hg] Fior Mendez DO Work Phone: [facility] 09-30-2020 12:52-0500 BP Diastolic 84 mm[Hg] [facility] 09-30-2020 12:52-0500 BP Systolic 131 mm[Hg] [facility] 09-30-2020 12:48-0500 BMI (Body Mass Index) 38.19 kg/m2 [facility] 09-30-2020 12:48-0500 Body weight 94.71 kg [facility] 09-30-2020 12:48-0500 Height 157.5 cm [facility] 09-30-2020 12:48-0500 Pulse (Heart Rate) 72 /min [facility] 09-30-2020 12:48-0500 Pulse Oximetry 98 % [facility] 09-30-2020 12:48-0500 Respiratory Rate 16 /min [facility] 08-11-2020 13:14-0400 Body Temperature 98.2 [degF] Shannan [employer] [facility], [place] 08-11-2020 13:14-0400 BP Diastolic 99 mm[Hg] Shannan Altaf [facility] , [place] 08-11-2020 13:14-0400 BP Systolic 132 mm[Hg] Shannan Altaf [email or web address] , [place] 08-11-2020 13:14-0400 Pulse (Heart Rate) 66 /min Shannan Altaf [email or web address], [place] 08-11-2020 13:14-0400 Pulse Oximetry 100 % Shannan Altaf [facility] , [place] 08-11-2020 13:14-0400 Respiratory Rate 16 /min Shannan Altaf [place], [place] 03-23-2020 20:39-0400 BMI (Body Mass Index) 40.79 kg/m2 Arielle Ventura [facility] 03-23-2020 20:39-0400 Body Temperature 98.01 [degF] Arielle Ventura [facility] 03-23-2020 20:39-0400 Body weight 101.15 kg Arielle Ventura [facility] 03-23-2020 20:39-0400 BP Diastolic 78 mm[Hg] Arielle Ventura [facility] 03-23-2020 20:39-0400 BP Systolic 116 mm[Hg] Arielle Ventura [facility] 03-23-2020 20:39-0400 Height 157.5 cm Ariellenicholas Ventura [facility] 03-23-2020 20:39-0400 Pulse (Heart Rate) 80 /min Ariellenicholas Ventura [facility] 03-23-2020 20:39-0400 Pulse Oximetry 98 % Ariellenicholas Ventura [facility] 03-23-2020 20:39-0400 Respiratory Rate 16 /min Ariellenicholas Ventura [facility] 12-01-2019 14:38-0500 BMI (Body Mass Index) 40.16 kg/m2 [facility] 12-01-2019 14:38-0500 Body Temperature 97 [degF] [facility] 12-01-2019 14:38-0500 Body weight 100.25 kg Gloria [facility] 12-01-2019 14:38-0500 BP Diastolic 85 mm[Hg] Gloria [facility] 12-01-2019 14:38-0500 BP Systolic 129 mm[Hg] [facility] 12-01-2019 14:38-0500 Pulse (Heart Rate) 76 /min [facility] 12-01-2019 14:38-0500 Pulse Oximetry 97 % [facility] 12-01-2019 14:38-0500 Respiratory Rate 16 /min [facility] 10-18-2019 11:13-0500 BMI (Body Mass Index) 38.85 kg/m2 Arielle Ventura [facility] 10-18-2019 11:13-0500 Body Temperature 98.29 [degF] Arielle Ventura [facility] 10-18-2019 11:13-0500 Body weight 96.98 kg Arielle Ventura [facility] 10-18-2019 11:13-0500 BP Diastolic 80 mm[Hg] Arielle Ventura [facility] 10-18-2019 11:13-0500 BP Systolic 128 mm[Hg] Arielle Ventura [facility] 10-18-2019 11:13-0500 Pulse (Heart Rate) 102 /min Arielle Ventura [facility] 10-18-2019 11:13-0500 Pulse Oximetry 99 % Arielle Ventura [facility] 10-18-2019 11:13-0500 Respiratory Rate 17 /min Arielle Ventura [facility] 07-06-2019 12:59-0400 BMI (Body Mass Index) 38.12 kg/m2 Bertha Irving [facility] 07-06-2019 12:59-0400 Body Temperature 100.29 [degF] Bertha Snow [facility] 07-06-2019 12:59-0400 Body weight 95.17 kg Bertha Snow [facility] 07-06-2019 12:59-0400 BP Diastolic 79 mm[Hg] Bertha Snow [facility] 07-06-2019 12:59-0400 BP Systolic 138 mm[Hg] Bertha Snow [facility] 07-06-2019 12:59-0400 Height 158 cm Bertha Snow [facility] 07-06-2019 12:59-0400 Pulse (Heart Rate) 80 /min Bertha Snow [facility] 07-06-2019 12:59-0400 Pulse Oximetry 98 % Bertha Snow [facility] 07-06-2019 12:59-0400 Respiratory Rate 16 /min Bertha Snow [facility] 06-21-2019 20:08-0400 BP Diastolic 107 mm[Hg] [facility] 06-21-2019 20:08-0400 BP Systolic 147 mm[Hg] [facility] 06-21-2019 19:24-0400 BMI (Body Mass Index) 38.23 kg/m2 [facility] 06-21-2019 19:24-0400 Body Temperature 98.49 [degF] [facility] 06-21-2019 19:24-0400 Body weight 94.8 kg [facility] 06-21-2019 19:24-0400 Pulse (Heart Rate) 66 /min [facility] 06-21-2019 19:24-0400 Pulse Oximetry 100 % [facility] 06-21-2019 19:24-0400 Respiratory Rate 14 /min [facility] Encounters Encounter Date Encounter Type Care Provider Facility Start: 05-03-2025 End: 05-03-2025 Clinisync Result Encounter Generic External Data Provider [facility] External Department Unsolicited Start: 05-03-2025 End: 05-03-2025 Clinisync Result Encounter Generic External Data Provider [facility] External Department Unsolicited Start: 05-02-2025 End: 05-02-2025 ambulatory BLAYNE SMALLS [facility] Start: 04-22-2025 End: 04-22-2025 Clinisync Result Encounter Generic External Data Provider [facility] External Department Unsolicited Start: 04-22-2025 End: 04-22-2025 Clinisync Result Encounter Generic External Data Provider [facility] External Department Unsolicited Start: 04-19-2025 End: 04-19-2025 Bamboo flowsheet Leyla JURADO Work Phone: [facility] Start: 04-19-2025 End: 04-19-2025 Bamboo flowsheet Leyla JURADO Work Phone: [facility] Start: 04-19-2025 End: 04-19-2025 ambulatory LEYLA MATT Not Available Start: 04-19-2025 End: 04-19-2025 Office outpatient visit 15 minutes Leyla JURADO Work Phone: [facility] Comment on above: 28 weeks gestation o f (HHS-HCC); Von Willebrand disease (HCC); Aortic valve stenosis, etiology of cardiac valve disease unspecified Start: 03-30-2025 End: 03-30-2025 ambulatory BLAYNE Faria BEKAH [facility] Start: 03-22-2025 End: 03-22-2025 Clinisync Result Encounter Jung Ama DO Work Phone: [facility] External Department Unsolicited Start: 03-22-2025 End: 03-22-2025 Clinisync Result Encounter Jung Ama DO Work Phone: [facility] External Department Unsolicited Start: 03-22-2025 End: 03-22-2025 ambulatory [facility] Start: 03-22-2025 End: 03-22-2025 Subsequent hospital visit by physician Joi Lewis MD Work Phone: [facility] Start: 03-19-2025 End: 03-19-2025 [facility] Start: 03-19-2025 End: 03-19-2025 Subsequent hospital visit by physician Joi Lewis MD Work Phone: [facility] Start: 03-14-2025 End: 03-14-2025 Office outpatient visit 15 minutes Jungedilson Morrowo DO Work Phone: [facility] Comment on above: Second trimester pre gnancy; 23 weeks gestation of ; Diabetes mellitus screening Start: 03-14-2025 End: 03-14-2025 ambulatory JUNG JONESZIO Not Available Start: 03-09-2025 End: 03-09-2025 ambulatory [facility] Start: 02-24-2025 End: 02-25-2025 Emergency department patient visit Fior Mendez DO Work Phone: [facility] Emergency Department Comment on above: Headache in pregnanc y, antepartum, second trimester (Primary Dx) Start: 02-09-2025 End: 02-09-2025 ambulatory BRIAN SHORE Not Available Start: 02-09-2025 End: 02-09-2025 Office outpatient visit 15 minutes Brian Shore NP Work Phone: [facility] Comment on above: 19 weeks gestation o f ; Second trimester ; Well woman exam with routine gynecological exam; Screening, , for anatomic survey; Vaginal discharge; Exposure to STD Start: 02-09-2025 End: 02-09-2025 Patient encounter procedure Brian Shore NP Work Phone: [facility] Start: 02-09-2025 End: 02-09-2025 Bamboo flowsheet Brian Shore [employer]AIL [employer] MANAGER Work Phone: [facility] Start: 02-09-2025 End: 02-14-2025 Bamboo flowsheet Brian Shore [employer]AIL [employer] MANAGER Work Phone: [facility] Start: 02-09-2025 End: 02-14-2025 Clinisync Result Encounter Generic External Data Provider [facility] External Department Unsolicited Start: 02-09-2025 End: 02-11-2025 External Result Encounter Brian Shore RETAIL [employer] MANAGER Work Phone: [facility] External Department Unsolicited Start: 01-17-2025 End: 01-17-2025 Telephone encounter Yessica Richardson LPN Maternal- Medicine at [facility] Start: 01-14-2025 End: 01-14-2025 ambulatory [facility] Start: 01-06-2025 End: 01-06-2025 Office outpatient visit 15 minutes Jung Ama DO Work Phone: [facility] Comment on above: Second trimester pre gnancy; 14 weeks gestation of ; Von Willebrand disease (CMS/HCC); Aortic stenosis due to bicuspid aortic valve Start: 01-06-2025 End: 01-06-2025 ambulatory JUNG AMA Not Available Start: 12-27-2024 End: 12-27-2024 ambulatory BLAYNE [facility] Start: 12-10-2024 End: 12-10-2024 Clinisync Result Encounter Generic External Data Provider [facility] External Department Unsolicited Start: 12-10-2024 End: 12-10-2024 Clinisync Result Encounter Generic External Data Provider [facility] External Department Unsolicited Start: 12-10-2024 End: 12-10-2024 Office outpatient visit 5 minutes [facility] Ama Nurse [facility] Comment on above: GA: 10w2d Start: 12-10-2024 End: 12-10-2024 ambulatory JUNG AMA Not Available Start: 06-09-2024 End: 06-11-2024 ambulatory JOI LEWIS [facility] Start: 06-02-2024 End: 06-02-2024 Bamboo flowsheet Jung Ama DO Work Phone: [facility] Start: 06-02-2024 End: 06-02-2024 Bamboo flowsheet Jung Ama DO Work Phone: [facility] Start: 06-02-2024 End: 06-02-2024 Office outpatient visit 15 minutes Jung Ama DO Work Phone: [facility] Comment on above: Preop examination; PCOS (polycystic ovarian syndrome); Dyspareunia in female; Abnormal uterine bleeding (AUB); Hormone imbalance; Elevated prolactin level; Pelvic pain in female Start: 06-02-2024 End: 06-02-2024 Preprocedural examination done Jung Ama DO Work Phone: [facility] Start: 06-02-2024 End: 06-02-2024 ambulatory JUNG AMA Not Available Start: 05-28-2024 End: 05-30-2024 ambulatory [facility] Start: 05-28-2024 End: 05-30-2024 Subsequent hospital visit by physician [facility] Ultrasound Room [facility] Ultrasound Comment on above: Dyspareunia, female; Abnormal uterine bleeding Start: 05-27-2024 End: 05-27-2024 ambulatory [facility] Start: 05-27-2024 End: 05-27-2024 Subsequent hospital visit by physician Joi Lewis MD Work Phone: [facility] Start: 05-18-2024 End: 05-18-2024 ambulatory JUNG AMA Not Available Start: 02-09-2024 End: 02-09-2024 ambulatory [facility] Start: 2023 End: 2023 ambulatory [facility] Start: 08-18-2023 End: 08-18-2023 ambulatory [facility] Start: 01-19-2023 End: 01-19-2023 Emergency department patient visit Fior Acuna Mendez DO Work Phone: [facility] ED Comment on above: Vaginal itching (Liz driss Dx) Start: 02-22-2021 End: 02-22-2021 ambulatory [facility] Start: 12-13-2020 End: 12-13-2020 Orders Only Anne Colón Work Phone: [facility] Start: 09-30-2020 End: 09-30-2020 ambulatory [facility] Start: 09-30-2020 End: 09-30-2020 Office outpatient visit 15 minutes Veronica Sanford Blood Work Phone: [facility] Comment on above: Impetigo (Primary Dx ) Start: 08-11-2020 End: 08-11-2020 Emergency department patient visit Shannan Solitario Work Phone: [facility] ED Comment on above: Acute rhinitis (Prim lisbet Dx) Start: 05-16-2020 End: 05-16-2020 Subsequent hospital visit by physician Joi ANNA Laboratory Start: 03-23-2020 End: 03-23-2020 ambulatory [facility] Start: 03-23-2020 End: 03-23-2020 Office outpatient visit 15 minutes Arielle Ventura [facility] Comment on above: Post-nasal drip (Liz driss Dx); Cough Start: 01-21-2020 End: 01-21-2020 Documentation procedure Bertha Merchant Work Phone: [facility] [place] Start: 12-01-2019 End: 12-01-2019 Subsequent hospital visit by physician Gloria Fatima Work Phone: [facility] Comment on above: Bronchitis Start: 12-01-2019 End: 12-01-2019 Office outpatient visit 15 minutes Gloria Fatima Work Phone: [facility] Comment on above: Lower respiratory tr act infection (Primary Dx) Start: 10-18-2019 End: 10-18-2019 Office outpatient visit 15 minutes Arielle Ventura Work Phone: [facility] Comment on above: Influenza B (Primary Dx) Start: 07-06-2019 End: 07-06-2019 Office outpatient visit 15 minutes Bertha Irving Work Phone: [facility] Comment on above: Bronchitis (Primary Dx); Dermatitis Start: 06-21-2019 End: 06-21-2019 Office outpatient new 30 minutes Sun Min Mehul Work Phone: [facility] Comment on above: Sunburn (Primary Dx) Start: 10-02-2018 Patient encounter procedure ANDREA PARADA [facility] Ambulatory Procedures Date Procedure Procedure Detail Performing Clinician Start: 05-03-2025 US OB BPP W NON-STRESS Generic External Data Provider Start: 04-22-2025 US OB GROWTH Generic Ex ternal Data Provider Start: 04-19-2025 Urnls dip stick/tabl et rgnt non-auto w/o micrscp Leyla JURADO Work Phone: Start: 03-22-2025 ALL CBC WITH AUTO DIFF Generic External Data Provider Start: 03-22-2025 Blood count complete automated Jung Wes Serrato MD Work Phone: Start: 03-14-2025 Urnls dip stick/tabl et rgnt non-auto w/o micrscp Jung Serrato DO Work Phone: Start: 02-24-2025 End: 02-24-2025 Assay of magnesium Fior J Mendez DO Work Phone: Start: 02-24-2025 Urinalysis microscopic only Fior J Mendez DO Work Phone: Start: 02-24-2025 Urnls dip stick/tabl et rgnt auto w/o microscopy Fior J Mendez DO Work Phone: Start: 02-09-2025 RECURRENT VAGINITIS (HTRX) Brian Shore NP Work Phone: Start: 02-09-2025 Urnls dip stick/tabl et rgnt non-auto w/o micrscp Brian Shore [employer]AIL [employer] MANAGER Work Phone: Start: 02-09-2025 IGP,APTIMA HPV,AGE GDLN Brian Mone [employer]AIL ARE[employer] MANAGER Work Phone: Start: 02-09-2025 Microscopic observat ion [Identifier] in Cervix by Cyto stain Jung Serrato DO Work Phone: Start: 12-10-2024 ALL CBC WITH AUTO DIFF Jung Serrato DO Work Phone: Start: 12-10-2024 Urnls dip stick/tabl et rgnt non-auto w/o micrscp Jung Serrato DO Work Phone: Start: 05-28-2024 Us pelvic nonobstetr ic real-time image complete Jung Serrato MD Work Phone: Start: 05-27-2024 Gonadotropin follicl e stimulating hormone Jung Serrato MD Work Phone: Start: 01-19-2023 Smr prim src wet beth nt nfct agt Fior J Mendez DO Work Phone: Start: 01-19-2023 Urinalysis microscopic only Fior Acuna Mendez DO Work Phone: Start: 01-19-2023 Urnls dip stick/tabl et rgnt auto w/o microscopy Fior Acuna Mendez DO Work Phone: Start: 05-16-2020 Urine test visual color cmprsn meths Blayne Hdez Work Phone: Start: 05-16-2020 Urnls dip stick/tabl et reagent auto microscopy Blayne Hdez Work Phone: Start: 12-01-2019 Standard chest X-ray Elroy Fatima Work Phone: Start: 10-18-2019 Influenzavirus antib heena assay Arielle Ventura Work Phone: Start: 08-18-2018 Microscopic observat ion [Identifier] in Cervix by Cyto stain Andra Talbotng Plan of Treatment Date Care Activity Detail Author Start: 02-10-2028 Screening for malign ant neoplasm of cervix [facility] Start: 01-14-2026 Adult BMI Screening Adult BMI Screen ing [facility] Start: 06-13-2025 Influenza vaccination [employer] [facility] Start: 06-13-2025 Respiratory Syncytia l Virus (RSV) or age 60 yrs+ (1 - Risk 1-dose series) Respiratory Syncytial Virus (RSV) or age 60 yrs+ (1 - Risk 1-dose series) [email or web address] Start: 05-13-2025 Influenza vaccination Flu vacc ine (Season Ended) [facility] Start: 05-10-2025 End: 05-10-2025 Patient encounter procedure 05/10/2025 1:50 PM EDT Routine [facility] [address] [place] [id number] Leyla Matt PA [address] [place], [place] [id number] [facility] Start: 05-03-2025 End: 05-03-2025 Patient encounter procedure 05/03/2025 10:40 AM EDT Routine [facility] [address] [place] [phone] Jung Serrato DO [address] [place] [address] [facility] Start: 04-19-2025 End: 10-20-2025 US biophysical profile w non stress test US biophysical profile w non stress test Imaging Routine Von Willebrand disease (HCC) Aortic valve stenosis, etiology of cardiac valve disease unspecified Expected: 04/19/2025 (Approximate), Expires: 10/20/2025 [facility] Work Phone: Comment on above: Expected: 04/19/2025 (Approximate), Expires: 10/20/2025 Start: 04-19-2025 End: 08-20-2025 US for US OB follow up transabdominal approach Imaging Routine Von Willebrand disease (HCC) Aortic valve stenosis, etiology of cardiac valve disease unspecified Expected: 04/19/2025 (Approximate), Expires: 08/20/2025 [facility] Comment on above: Expected: 04/19/2025 (Approximate), Expires: 08/20/2025 Start: 04-12-2025 End: 04-12-2025 Patient encounter procedure 04/12/2025 1:30 PM EDT Routine [facility] [address] [place] [place] [phone] Leyla Matt PA [address] [place] [address] [facility] Start: 04-06-2025 Tdap Vaccine during Tdap Vaccine during [facility] Start: 03-14-2025 End: 03-14-2026 CBC panel - Blood by Automated count CBC Lab Routine Diabetes mellitus screening Expected: 03/14/2025 (Approximate), Expires: 03/14/2026 [facility] Work Phone: Comment on above: Expected: 03/14/2025 (Approximate), Expires: 03/14/2026 Start: 03-14-2025 End: 03-14-2026 Measurement of glucose 1 hour after glucose challenge for glucose tolerance test Glucose tolerance, 1 hour Lab Routine Diabetes mellitus screening Expected: 03/14/2025 (Approximate), Expires: 03/14/2026 [facility] Comment on above: Expected: 03/14/2025 (Approximate), Expires: 03/14/2026 Start: 03-08-2025 End: 03-08-2025 Patient encounter procedure 03/08/2025 2:20 PM EDT Routine [facility] [address] [place] [phone] Jung Serrato DO [address] [place] [address] [facility] Start: 02-09-2025 End: 03-11-2025 Alpha fetoprotein, maternal Alpha fetoprotein, maternal Lab Routine 19 weeks gestation of Second trimester Expected: 02/09/2025 (Approximate), Expires: 03/11/2025 [facility] Healthcare Comment on above: Expected: 02/09/2025 (Approximate), Expires: 03/11/2025 Start: 02-07-2025 Depression Screen Depression Screen [facility] Start: 02-07-2025 End: 02-07-2025 Patient encounter procedure 02/07/2025 11:30 AM EDT Routine [facility] [address] [place] [place] [phone] Leyla Matt PA [address] [place], [place] [phone] [facility] Start: 01-06-2025 End: 01-06-2025 Patient encounter procedure 01/06/2025 9:40 AM EDT Routine [facility] [address] [place] [place] [phone] Jung Serrato DO [address] [place] [address] [facility] Start: 12-10-2024 End: 12-10-2025 ABO/Rh ABO/Rh Lab Routine Missed menses , unspecified gestational age Expected: 12/10/2024 (Approximate), Expires: 12/10/2025 [facility] Healthcare Comment on above: Expected: 12/10/2024 (Approximate), Expires: 12/10/2025 Start: 12-10-2024 End: 12-10-2025 Blood type and Indirect antibody screen panel - Blood Type and screen Lab Routine Missed menses , unspecified gestational age Expected: 12/10/2024 (Approximate), Expires: 12/10/2025 [facility] Comment on above: Expected: 12/10/2024 (Approximate), Expires: 12/10/2025 Start: 12-10-2024 End: 12-10-2025 Drugs of abuse panel - Urine by Screen method Rapid drug screen, urine Lab Routine , unspecified gestational age Encounter for supervision of normal first in first trimester Expected: 12/10/2024 (Approximate), Expires: 12/10/2025 [facility] Comment on above: Expected: 12/10/2024 (Approximate), Expires: 12/10/2025 Start: 12-09-2024 End: 12-09-2025 US Pelvis transvaginal US OB transvaginal Imaging Routine Missed menses Expected: 12/09/2024, Expires: 12/09/2025 [facility] Work Phone: Comment on above: Expected: 12/09/2024 , Expires: 12/09/2025 Start: 2024 Screening for malign ant neoplasm of cervix [facility] Start: 07-02-2024 End: 07-02-2024 Patient encounter procedure 07/02/2024 8:30 AM EDT Procedure Visit [facility] EX[facility] Jung Serrato, DO [address] [place] [address] [facility] Start: 06-13-2024 COVID-19 Vaccine ( season) COVID-19 Vaccine ( season) [facility] Start: 06-13-2024 Influenza vaccination Influenza Vacc ine (#1) [facility] Start: 06-02-2024 End: 06-02-2025 MR Brain WO and W contrast IV MR brain w and wo contrast routine Imaging Routine Elevated prolactin level Expected: 06/02/2024 (Approximate), Expires: 06/02/2025 [facility] Work Phone: Comment on above: Expected: 06/02/2024 (Approximate), Expires: 06/02/2025 Start: 06-02-2024 End: 06-02-2024 Patient encounter procedure 06/02/2024 1:00 PM EDT Consult [facility] [address] [place] [phone] Jung Serrato, DO [address] [place] [address] (work) Arrived [facility] Comment on above: Arrived Start: 05-28-2024 End: 05-28-2024 Patient encounter procedure 05/28/2024 9:00 PM EDT Appointment [facility] Ultrasound [address] [place] [address] MEDIA CHRIS W PT [facility] Ultrasound Comment on above: MEDIA CHRIS W PT Start: 05-13-2024 Influenza vaccination Flu vaccine (# 1) [facility] Start: 06-13-2023 COVID-19 Vaccine ( season) COVID-19 Vaccine ( season) [facility] Start: 05-13-2023 Influenza vaccination Flu vacc ine (Season Ended) [facility] Start: 08-18-2021 Screening for malign ant neoplasm of cervix PAP SMEAR [facility] Start: 06-13-2020 Influenza vaccination Flu vaccine (# 1) [facility] [place] Start: 06-13-2020 Influenza vaccinatio n given [facility] Start: 04-11-2020 Influenza vaccinatio n given SEQUENTIAL INFLUENZA VACCINE (#1) [facility] Comment on above: Postponed from 06/13 (Patient Ill Today) Start: 06-13-2019 Influenza vaccinatio n given SEQUENTIAL INFLUENZA VACCINE (#1) [facility] Start: 04-28-2017 DTaP,Tdap and Td Vaccines (7 - Td or Tdap) DTaP,Tdap and Td Vaccines (7 - Td or Tdap) [facility] Start: 04-28-2017 DTaP/Tdap/Td vaccine (7 - Td or Tdap) DTaP/Tdap/Td vaccine (7 - Td or Tdap) [facility] Start: 04-28-2017 [facility] Start: 2015 Screening for malign ant neoplasm of cervix [facility] Start: 2013 DTaP/Tdap/Td vaccine (1 - Tdap) DTaP/Tdap/Td vaccine (1 - Tdap) [facility] Start: 2013 Hepatitis B vaccine (1 of 3 - 19+ 3-dose series) Hepatitis B vaccine (1 of 3 - 19+ 3-dose series) [facility] Start: 2012 Adult BMI Follow Up Plan Adult BMI Follow Up Plan [facility] Start: 2012 Hepatitis C antibody , confirmatory test Hepatitis C Screening [facility] Start: 2010 COVID-19 Vaccine (1 of 2) COVID-19 Vaccine (1 of 2) [facility] Start: 2009 HIV screening HIV Screening [facility] Start: 2007 Varicella vaccine (1 of 2 - 13+ 2-dose series) Varicella vaccine (1 of 2 - 13+ 2-dose series) [facility] Start: 2006 Adolescent depressio n screening assessment [facility] Start: 2006 Depression Screen Depression Screen [facility] Start: 2006 Tobacco Screening Tobacco Screening [facility] Start: 2005 HPV vaccine (1 - 2-d ose series) HPV vaccine (1 - 2-dose series) [place] Start: 1997 History and physical examination, annual for health maintenance Wellness Visit [facility] Start: 1995 Varicella vaccine (1 of 2 - 2-dose childhood series) Varicella vaccine (1 of 2 - 2-dose childhood series) [facility] Start: 05-10-1995 COVID-19 Vaccine (#1) COVID-19 Vacci ne (#1) [facility] [employer] [facility] Start: 1994 Depression screening using PHQ-9 (Patient Health Questionnaire 9) score DEPRESSION SCREENING (PHQ9) [facility] Start: 1994 Screening for Chlamy mc trachomatis Chlamydia Screening [facility] Bacteria identified in Urine by Culture Urine culture Microbiology Routine Missed menses Ordered: 12/10/2024 [facility] Comment on above: Ordered: 12/10/2024 End: 01-19-2023 C.trachomatis N.gonorrhoeae DNA [facility] Work Phone: Comment on above: One Time for 1 Occur rences starting 01/19/2023 until 01/19/2023 End: 05-16-2020 C.trachomatis N.gonorrhoeae DNA, Urine C.trachomatis N.gonorrhoeae DNA, Urine Microbiology Routine Once for 1 Occurrences starting 05/16/2020 until 05/16/2020 [facility] Comment on above: Once for 1 Occurrenc es starting 05/16/2020 until 05/16/2020 C.trachomatis N.gonorrhoeae DNA, Urine C.trachomatis N.gonorrhoeae DNA, Urine Microbiology Routine 05/16/2020 12:28 PM EDT [facility] CBC W Auto Different ial panel - Blood CBC and differential Lab Routine Missed menses , unspecified gestational age Ordered: 12/10/2024 [facility] Comment on above: Ordered: 12/10/2024 CHLAMYDIA TRACHOMATI S (GENITO/STI) CHLAMYDIA TRACHOMATIS (GENITO/STI) Lab Routine Exposure to STD Ordered: 02/09/2025 [facility] Comment on above: Ordered: 02/09/2025 End: 01-19-2023 Culture, Urine Ritot Phone: Comment on above: One Time for 1 Occur rences starting 01/19/2023 until 01/19/2023 Cytology Cervical or vaginal smear or scraping study Pap Smear Pathology and Cytology Routine Well woman exam with routine gynecological exam Ordered: 02/09/2025 [facility] Comment on above: Ordered: 02/09/2025 End: 05-27-2024 [facility] Ritot Phone: Comment on above: Once for 1 Occurrenc es starting 05/27/2024 until 05/27/2024 Hemoglobin A1c/Hemoglobin.total in Blood Hemoglobin A1c Lab Routine Missed menses , unspecified gestational age Ordered: 12/10/2024 [facility] Comment on above: Ordered: 12/10/2024 Hepatitis B virus surface Ag [Presence] in Serum or Plasma by Immunoassay Hepatitis B surface antigen Lab Routine Missed menses , unspecified gestational age Ordered: 12/10/2024 [facility] Comment on above: Ordered: 12/10/2024 Hepatitis C virus Ab [Presence] in Serum or Plasma by Immunoassay Hepatitis C antibody Lab Routine Missed menses , unspecified gestational age Ordered: 12/10/2024 [facility] Comment on above: Ordered: 12/10/2024 HIV-1/HIV-2 antigen/antibody combination immunoassay HIV-1 and HIV-2 antibodies Lab Routine Missed menses , unspecified gestational age Ordered: 12/10/2024 [facility] Comment on above: Ordered: 12/10/2024 Human papilloma viru s DNA [Presence] in Unspecified specimen by Probe with amplification HPV DNA probe, amplified Microbiology Routine Well woman exam with routine gynecological exam Ordered: 02/09/2025 [facility] Comment on above: Ordered: 02/09/2025 Neisseria gonorrhoea e DNA [Presence] in Unspecified specimen by YULIANA with probe detection Neisseria gonorrhea DNA probe, direct Lab Routine Exposure to STD Ordered: 02/09/2025 [facility] Comment on above: Ordered: 02/09/2025 Reagin Ab [Presence] in Serum by RPR RPR Lab Routine Missed menses , unspecified gestational age Ordered: 12/10/2024 [facility] Comment on above: Ordered: 12/10/2024 Rubella antibody, IgG Rubella an tibody, IgG Lab Routine Missed menses , unspecified gestational age Ordered: 12/10/2024 [facility] Comment on above: Ordered: 12/10/2024 SURESWAB(R) ADVANCED VAGINITIS PLUS, TMA SURESWAB(R) ADVANCED VAGINITIS PLUS, TMA Pathology and Cytology Routine Vaginal discharge Ordered: 02/09/2025 [facility] Work Phone: Comment on above: Ordered: 02/09/2025 US Pelvis transvaginal US OB tra nsvaginal Imaging Routine Missed menses 12/10/2024 9:57 AM EST [facility] Immunizations Immunization Date Immunization Notes Care Provider Shayne renee 06-10-2012 influenza virus vacc ine, unspecified formulation Jung Serrato DO Work Phone: [facility] Payers Date Payer Category Payer Medicaid [id number] 2024 Medicaid [id number] 2017 Unknown [employer] xxxxxxxxxxxx 2017-Present xxxxxxxxxxxx [id number] 2017 Unknown [employer] [id number] 2017-Present [id number] 2015 Unknown [id number] 1994 Unknown [id number] 2.16.840.1.081138.3.579.2.903 1994 Unknown [id number] 2.16.840.1.136742.3.579.2.903 1994 Unknown [id number] 2.16.840.1.247469.3.579.2.903 1994 Unknown [id number] 2.16.840.1.345295.3.579.2.903 1994 Unknown [id number] 2.16.840.1.169573.3.579.2.175 1994 Unknown [id number] 2.16.840.1.211178.3.579.2.175 1994 Unknown [id number] 2.16.840.1.891915.3.579.2.175 1994 Unknown [id number] 2.16.840.1.816655.3.579.2.173 1994 Unknown [id number] 2.16.840.1.090390.3.579.2.173 1994 Unknown [id number] 2.16.840.1.550771.3.579.2.173 1994 Unknown [id number] 2.16.840.1.232505.3.579.2.173 1994 Unknown [id number] 2.16.840.1.131759.3.579.2.173 1994 Unknown [id number] 2.16.840.1.996556.3.579.2.173 1994 Unknown [id number] 2.16.840.1.677004.3.579.2.173 1994 Unknown [id number] 2.16.840.1.366023.3.579.2.128 6 1994 Unknown [id number] 2.16.840.1.652953.3.579.2.128 6 1994 Unknown [id number] 2.16.840.1.578191.3.579.2.128 6 1994 Unknown [id number] 2.16.840.1.985982.3.579.2.125 9 1994 Unknown [id number] 2.16.840.1.967904.3.579.2.125 9 1994 Unknown [id number] 2.16.840.1.686791.3.579.2.125 9 1994 Unknown [id number] 2.16.840.1.326533.3.579.2.125 9 1994 Unknown [id number] 2.16.840.1.354594.3.579.2.125 9 1994 Unknown [id number] 2.16.840.1.013133.3.579.2.125 9 1994 Unknown [id number] 2.16.840.1.164741.3.579.2.125 9 1994 Unknown [id number] 2.16.840.1.696126.3.579.2.125 9 Social History Date Type Detail Facility Start: 06-21-2019 End: 2023 Tobacco smoking status [facility] Never smoker [facility] Start: 06-21-2019 End: 09-30-2020 Alcohol intake Current non-drinker of alcohol (finding) [facility] Start: 1994 Sex Assigned At Not on file [facility] Start: 01-09-2023 End: 01-19-2023 Exposure to SARS-CoV-2 (event) Not sure [facility] Start: 05-16-2020 End: 2023 Tobacco use and exposure [facility] [place] Start: 05-16-2020 End: 02-15-2024 Alcohol intake Current drink[facility] of [facility] (finding[facility] Start: 06-19-2014 Alcohol Comment Socially [facility] Start: 01-20-2023 History SDOH Alcohol Frequency 1 [facility] Work Phone: Start: 01-20-2023 History SDOH Alcohol Std Drinks 0 [facility] [facility] Work Phone: Start: 06-23-2023 End: 08-18-2023 History of Social function [email or web address] Start: 06-23-2023 End: 08-18-2023 Alcohol Use Disorder Identification Test - Consumption [AUDIT-C] [facility] How often to you hav e a drink containing alcohol? Never [facility] How many standard dr inks containing alcohol do you have on a typical day? Patient does not drink [facility] (I/We) worried wheth er (my/our) food would run out before (I/we) got money to buy more. Never true [facility] Tobacco smoking stat [facility] Tobacco smoking consumption unknown [facility] Start: 10-13-2024 [facility] Start: 10-20-2022 End: 02-24-2025 Alcoholic beverage intake Ex-drinker (finding) [facility] Start: 11-22-2012 End: 05-18-2015 Sex Female (finding) [facility] Functional Status Date Assessment Result Facility [facility] Clinical Notes 01-19-2023 to 05-02-2025 RHIANNON Bar - 04/19/2025 11:00 AM EDTMdonato Siddiqui MA - 03/14/2025 1:30 PM EDTDischarge Bill Shore NP - 02/09/2025 3:00 PM Luis Ricks LPN - 06/02/2024 1:00 PM EDT Note Date & Type Note Facility 05-02-2025 Note Joi Lewis MD [address] [facility] [address] May 02, 2025 Patient: Edgar Ortiz Date of : 1995 Date of Visit: 05/02/2025 Dear Joi Lewis MD: I had the pleasure of seeing Edgar Ortiz, at our pediatric cardiology clinic on 05/02/2025 for cardiac follow-up and consultation. Edgar is a [age] y.o. female with a history of bicuspid aortic valve with aortic regurgitation who is now 30 weeks into her first . Her due date is July 06, 2025 and she will be delivering at [facility]. 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 Improving her hydration has helped with some of the symptoms and she has not had to go into the emergency room. She has gained roughly 17 pounds with this and she has not had any infectious related complications, bleeding or any vaginal drainage. I am told that [...] no major concerns. She has been seeing a chiropractor because of occasional headaches recently and because [...] disease. Overall nutrition and sleep hygiene have been quite good. She has not noted any swelling [...] exam demonstrated no JVD or CORRY. Chest was normal active without thrill. There was a regular [...] PSIG across the LVOT: 34 (19) mmHg in the pressence of aortic regurgitation. Mildly dilated ascending aorta (z score 2.83) Mild mitral valve insufficiency. Patient is 15 weeks echo: History of maternal bicuspid aortic valve with aortic regurgitation Current 26 week fetus with structurally normal heart and normal biventricular systolic function. Normal PFO with [id number] shunt an (more content not included)... [facility] 04-19-2025 History of Presen t illness Narrative Reason for Appointment: Patient ID: Edgar Ortiz is a 29 y.o. female who presents for Routine Visit Patient presents today for Return OB appointment. MEDICATIONS Current Outpatient Medications Medication Instructions magnesium oxide (MAG-OX) 400 mg, Oral, Daily Vit-Fe Fumarate-FA ( 19 PO) 1 tablet, Daily ALLERGIES Allergies Allergen Reactions Ibuprofen Bruising t/o the body Other Reaction(s): Other Nsaids Other Reaction(s): Unknown PROBLEMS Active Ambulatory Problems Diagnosis Date Noted Aortic valve stenosis 01/06/2025 14 weeks gestation of ([facility]) 01/06/2025 Second trimester ([facility]) 01/06/2025 Von Willebrand disease ([facility]) 01/06/2025 Resolved Ambulatory Problems Diagnosis Date Noted No Resolved Ambulatory Problems Past Medical History: Diagnosis Date Aortic stenosis due to bicuspid aortic valve HISTORY PAST MEDICAL HISTORY SOCIAL HISTORY Past Medical History: Diagnosis Date Aortic stenosis due to bicuspid aortic valve Von Willebrand disease ([facility]) Social History Tobacco Use Smoking status: Not on file Smokeless tobacco: Not on file Substance Use Topics Alcohol use: Not on file Drug use: Not on file FAMILY HISTORY Family History Problem Relation Name Age of Onset Other (liver failure) Father Other (high blood pressure) Father Polycystic ovary syndrome Sister Other (high blood pressure) Sister SURGICAL HISTORY No past surgical history on file. REVIEW OF SYSTEMS Review of Systems: Review of Systems OBJECTIVE Objective: OBGyn Exam Vitals: Estimated body mass index is 36.58 kg/m as calculated from the following: Height as of 06/02/24: 5' 2 . Weight as of this encounter: 200 lb. BP: 122/74 Patient's last menstrual period was 09/29/2024. ASSESSMENT & PLAN ICD-10-CM 1. 28 weeks gestation of ([facility]) Z3A.28 POCT urinalysis dipstick manually resulted 2. Von Willebrand disease ([facility]) D68.00 US biophysical profile w non stress test US OB follow up transabdominal approach CANCELED: US OB follow up transabdominal approach 3. Aortic valve stenosis, etiology of cardiac valve disease unspecified I35.0 US biophysical profile w non stress test US OB follow up transabdominal approach CANCELED: US OB follow up transabdominal approach Return OB: Patient presents today for a routine obstetrics appointment. Patient is currently 28w6d . Patient states she is doing well but has complaints of being tired due to current . Patient has verbalizes frequent movement. labor precautions was discussed/given and patient was instructed to perform kick counts three times a day. Patient was given NST/BPP and Growth US q4 to schedule at [facility]. Orders Placed This Encounter Procedures US biophysical profile w non stress test US OB follow up transabdominal approach POCT urinalysis dipstick manually resulted Follow Up: Patient is to return to office in 3 week for routine OB appointment. Documented by Vicki Siddiqui MA on behalf of: RIHANNON Bar documented in this encounter [facility] 03-14-2025 History of Presen t illness Narrative Reason for Appointment: Patient ID: Edgar Ortiz is a 29 y.o. female who presents for Routine Visit Patient presents today for Return OB appointment. MEDICATIONS Current Outpatient Medications Medication Instructions magnesium oxide (MAG-OX) 400 mg, Oral, Daily Vit-Fe Fumarate-FA ( 19 PO) 1 tablet, Daily ALLERGIES Allergies Allergen Reactions Ibuprofen Bruising t/o the body Other Reaction(s): Other Nsaids Other Reaction(s): Unknown PROBLEMS Active Ambulatory Problems Diagnosis Date Noted Aortic valve stenosis 01/06/2025 14 weeks gestation of 01/06/2025 Second trimester 01/06/2025 Von Willebrand disease (CMS/HCC) 01/06/2025 Resolved Ambulatory Problems Diagnosis Date Noted No Resolved Ambulatory Problems Past Medical History: Diagnosis Date Aortic stenosis due to bicuspid aortic valve HISTORY PAST MEDICAL HISTORY SOCIAL HISTORY Past Medical History: Diagnosis Date Aortic stenosis due to bicuspid aortic valve Von Willebrand disease (CMS/HCC) Social History Tobacco Use Smoking status: Not on file Smokeless tobacco: Not on file Substance Use Topics Alcohol use: Not on file Drug use: Not on file FAMILY HISTORY Family History Problem Relation Name Age of Onset Other (liver failure) Father Other (high blood pressure) Father Polycystic ovary syndrome Sister Other (high blood pressure) Sister SURGICAL HISTORY History reviewed. No pertinent surgical history. REVIEW OF SYSTEMS Review of Systems: Review of Systems OBJECTIVE Objective: OBGyn Exam Vitals: Estimated body mass index is 36.03 kg/m as calculated from the following: Height as of 06/02/24: 5' 2 . Weight as of this encounter: 197 lb. BP: 114/72 Patient's last menstrual period was 09/29/2024. ASSESSMENT & PLAN ICD-10-CM 1. Second trimester Z34.92 POCT urinalysis dipstick manually resulted 2. 23 weeks gestation of Z3A.23 POCT urinalysis dipstick manually resulted 3. Diabetes mellitus screening Z13.1 CBC Glucose tolerance, 1 hour CBC Glucose tolerance, 1 hour Return OB: Patient presents today for a routine obstetrics appointment. Patient is currently 23w5d . Patient states she is doing well but has complaints of being tired due to current . Patient has verbalizes frequent movement. labor precautions was discussed/given and patient was instructed to perform kick counts three times a day. Orders Placed This Encounter Procedures CBC Glucose tolerance, 1 hour POCT urinalysis dipstick manually resulted Follow Up: Patient is to return to office in 3 week for routine OB appointment. Documented by Vicki Siddiqui MA on behalf of: Jung Serrato DO documented in this encounter [facility] 02-25-2025 Hospital Discharg e instructions Fior Mendez DO - 02/25/2025 12:23 AM EDT Please follow-up with your OB doctor regarding suggestions for migraines during . You can certainly continue with Tylenol as needed. Make sure to drink plenty of fluids and keep yourself hydrated. Magnesium supplementation may also be helpful for migraines during but please consult your OB before starting to take it. The following attachments cannot be sent through Care Everywhere.Headache (German)documented in this encounter [facility] 02-09-2025 History of Presen t illness Narrative Reason for Appointment: Patient ID: Edgar Ortiz is a 29 y.o. female who presents for Routine Visit Patient presents today for Return OB appointment. MEDICATIONS Current Outpatient Medications Medication Instructions Vit-Fe Fumarate-FA ( 19 PO) 1 tablet, Daily ALLERGIES Allergies Allergen Reactions Ibuprofen Bruising t/o the body Other Reaction(s): Other Nsaids Other Reaction(s): Unknown PROBLEMS Active Ambulatory Problems Diagnosis Date Noted Aortic valve stenosis 01/06/2025 14 weeks gestation of 01/06/2025 Second trimester 01/06/2025 Von Willebrand disease (CMS/HCC) 01/06/2025 Resolved Ambulatory Problems Diagnosis Date Noted No Resolved Ambulatory Problems Past Medical History: Diagnosis Date Aortic stenosis due to bicuspid aortic valve HISTORY PAST MEDICAL HISTORY SOCIAL HISTORY Past Medical History: Diagnosis Date Aortic stenosis due to bicuspid aortic valve Von Willebrand disease (CMS/HCC) Social History Tobacco Use Smoking status: Not on file Smokeless tobacco: Not on file Substance Use Topics Alcohol use: Not on file Drug use: Not on file FAMILY HISTORY Family History Problem Relation Name Age of Onset Other (liver failure) Father Other (high blood pressure) Father Polycystic ovary syndrome Sister Other (high blood pressure) Sister SURGICAL HISTORY History reviewed. No pertinent surgical history. REVIEW OF SYSTEMS Review of Systems: Review of Systems Constitutional: Negative. HENT: Negative. Eyes: Negative. Respiratory: Negative. Cardiovascular: Negative. Gastrointestinal: Negative. Genitourinary: Negative. Musculoskeletal: Negative. Skin: Negative. Neurological: Negative. All [...] nursing note reviewed. Exam conducted with a manager logistic present. Vitals: Estimated body mass index is 35.45 kg/m as calculated from the following: Height as of 8/21/24: 5' 2 . Weight as of this encounter: 193 lb 12.8 oz. BP: 110/70 Patient's last menstrual period was 09/29/2024. ASSESSMENT & PLAN ICD-10-CM 1. 19 weeks gestation of Z3A.19 POCT urinalysis dipstick manually resulted Alpha fetoprotein, maternal Alpha fetoprotein, maternal CANCELED: POCT urinalysis dipstick manually resulted 2. Second trimester Z34.92 POCT urinalysis dipstick manually resulted Alpha fetoprotein, maternal Alpha fetoprotein, maternal CANCELED: POCT urinalysis dipstick manually resulted 3. Well woman exam with routine gynecological exam Z01.419 Pap Smear HPV DNA probe, amplified 4. Screening, , for anatomic survey Z36.89 CANCELED: US OB 14+ weeks anatomy scan CANCELED: US OB 14+ weeks anatomy scan 5. Vaginal discharge N89.8 SURESWAB(R) ADVANCED VAGINITIS PLUS, TMA 6. Exposure to STD Z20.2 CHLAMYDIA TRACHOMATIS (GENITO/STI) Neisseria gonorrhea DNA probe, direct Return OB: Patient presents today for a routine obstetrics appointment. Patient is currently 19w0d . Patient states she is doing well but has complaints of being tired due to current . Patient has verbalizes frequent movement. labor precautions was discussed/given and patient was instructed to perform kick counts three times a day. Orders Placed This Encounter Procedures HPV DNA probe, amplified CHLAMYDIA TRACHOMATIS (GENITO/STI) Neisseria gonorrhea DNA probe, direct Alpha fetoprotein, maternal POCT urinalysis dipstick manually resulted Follow Up: Patient is to return to office in 4 week for routine OB appointment. Continues to follow with MFM with appointment scheduled in 1 week and cardiac Echo completed on 01/14/25. Documented by Brian Shore NP on behalf of: Brian Shore NP documented in this encounter [facility] 01-17-2025 Miscellaneous Notes Notified office we are unable to see because we don't take her insurance. documented in this encounter [facility] 01-17-2025 Telephone encounter Note Notified office we are unable to see because we don't take her insurance. [facility] 01-06-2025 History of Presen t illness Narrative Reason for Appointment: Patient ID: Edgar Ortiz is a 29 y.o. female who presents for Routine Visit Patient presents today for Return OB appointment. MEDICATIONS No current outpatient medications ALLERGIES Allergies Allergen Reactions Ibuprofen Bruising t/o the body Other Reaction(s): Other Nsaids Other Reaction(s): Unknown PROBLEMS Active Ambulatory Problems Diagnosis Date Noted Aortic valve stenosis 01/06/2025 14 weeks gestation of 01/06/2025 Second trimester 01/06/2025 Von Willebrand disease (CMS/HCC) 01/06/2025 Resolved Ambulatory Problems Diagnosis Date Noted No Resolved Ambulatory Problems Past Medical History: Diagnosis Date Aortic stenosis due to bicuspid aortic valve HISTORY PAST MEDICAL HISTORY SOCIAL HISTORY Past Medical History: Diagnosis Date Aortic stenosis due to bicuspid aortic valve Von Willebrand disease (CMS/HCC) Social History Tobacco Use Smoking status: Not on file Smokeless tobacco: Not on file Substance Use Topics Alcohol use: Not on file Drug use: Not on file FAMILY HISTORY Family History Problem Relation Name Age of Onset Other (liver failure) Father Other (high blood pressure) Father Polycystic ovary syndrome Sister Other (high blood pressure) Sister SURGICAL HISTORY History reviewed. No pertinent surgical history. REVIEW OF SYSTEMS Review of Systems: Review of Systems All other systems reviewed and are negative. OBJECTIVE Objective: Physical Exam Constitutional: Appearance: Normal [...] nursing note reviewed. Exam conducted with a manager logistic present. Vitals: Estimated body mass index is 34.9 kg/m as calculated from the following: Height as of 06/02/24: 5' 2 . Weight as of this encounter: 190 lb 12.8 oz. BP: 116/74 Patient's last menstrual period was 09/29/2024. ASSESSMENT & PLAN ICD-10-CM 1. Second trimester Z34.92 2. 14 weeks gestation of Z3A.14 3. Von Willebrand disease ([facility]) D68.00 4. Aortic stenosis due to bicuspid aortic valve Q23.0 Q23.81 New OB: Patient presents today for 1st time obstetrics appointment with provider. Patient is currently 14w1d . Patients history has been reviewed in great detail including any potential risks. Patient stated she currently has no complaints. Expectations throughout regarding labs, ultrasounds, and appointments have been discussed with the patient in detail. It was reiterated that the patient is to drink 6-8 glasses of water a day, eat 6 small meals a day, do not consume raw or undercooked meat, and [facility] away from [facility]. Patient has been consulted regarding any further do's and don'ts of . Patient voiced understanding and all questions and concerns were answered. Patient to have referral to [facility] for Aortic Stenosis and Von Willebrand. 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 Smalls will perform a cardiac workup as well & follow patient throughout as well. Follow Up: Patient is to return in 4 weeks for routine OB appointment. Documented by Sanjana Monaco LPN on behalf of: Jung Serrato DO documented in this encounter [facility] 12-27-2024 Note Joi Lewis MD [address] [facility] [address] December 27, 2024 Patient: Edgar Ortiz Date of : 1995 Date of Visit: 12/27/2024 Dear Joi Lewis MD: I had the pleasure of seeing Edgar Ortiz, at our pediatric cardiology clinic on 12/27/2024 for Cardiac follow-up and evaluation. Edgar is a 29 y.o. female with a history of a functionally bicuspid aortic valve with mild stenosis and regurgitation who previously had issues with systemic hypertension however her blood pressure improved and she ended up coming off any antihypertensive therapy. She was last seen by me back in October 2022 and in the interim, she tells me that she did have some mild left-sided chest discomfort which was more localized to her left breast and lasted for roughly 1 to 2 minutes in duration. The chest pain was a 4 out of 10 on her pain scale with no other symptoms and did not require any medical management. At times she has had some shortness of breath in the morning with associated cough and she had been smoking marijuana until she found that she was . The rest of her cardiac review of systems is unremarkable with no palpitations tachycardia or syncope. She does not exercise and does not have any other exertional symptoms. As far as her is concerned, her due date is July 06 of this year and that she is currently roughly 12 weeks gestation into her first trimester she does have care with Dr. Serrato in [facility]. She has been on her vitamins and she has not had any vaginal bleeding and states that she has not had any infectious related issues. She has scheduled care visits. Noncardiac review of systems is remarkable for previous history of ovarian cysts and she was seen in the emergency room with what appeared to be a ruptured ovarian cyst in the past. She is currently not having any gastrointestinal or musculoskeletal symptoms but she does have rare episodes of nausea. She has been hydrating well and has normal bowel bladder habits. She has a history of von Willebrand's but has not had any major bleeding. Her boyfriend and the father of this current is 25 years of age and is said to be healthy with 2 prior children who are also healthy. There is no paternal history of congenital heart disease. Edgar is not drinking or smoking tobacco. Current Outpatient Medications Medication Sig Dispense Refill acyclovir (Zovirax) 400 mg tablet Take 400 mg by mouth if needed. no115/iron/folic acid ( 19 ORAL) Take by mouth. No current facility-administered medications for this visit. Allergies Allergen Reactions Ibuprofen Other Past Medical History: Diagnosis Date Aortic stenosis AR (aortic regurgitation) Von Willebrand disease Past Surgical History: Procedure Laterality Date FINGER SURGERY right ring finger Review of Systems - Respiratory ROS, Gastrointestinal ROS, Genitourinary ROS, Hematologic, Endocrinologic ROS, Musculoskeletal, Immunologic, Infectious ROS, Neurologic ROS are unremarkable. On physical exam the patient was alert, cooperative, acyanotic and in no apparent distress. Vitals: 12/27/24 1037 BP: 109/71 BP Location: Right arm Patient Position: Sitting BP Cuff Size: Large adult Pulse: 91 SpO2: 100% Weight: 88.2 kg (194 lb 8 oz) Height: 1.617 m (5' 3.66 ) HEENT was normal. Lungs were clear to auscultation. Neck exam demonstrated no JVD or CORRY. Chest was normal active without thrill. There was a regular rate and rhythm with a normal S1, soft aortic ejection click, and S2 with physiologic splitting of the S2. There is a soft 2+low-frequency systolic ejection murmur in the aortic area followed by a very soft high-frequency diastolic decrescendo murmur at end expiration. Abdominal exam was normal with no hepatosplenomegaly. Peripheral extremities demonstrated symmetrical pulses and pulse pressure without BF delay. No clubbing, cyanosis, or edema was seen with normal capillary refill. Skin & joint exam was normal. EKG demonstrated: Normal sinus rhythm at a rate of 67 bpm with normal cardiac intervals. There was persistent juvenile T wave in the V1 precordial lead with no evidence of atrial or ventricular hypertrophy. Echocardiogram demonstrated: She is scheduling outpatient echocardiography since her last study was not performed since 2020. In conclusion, Edgar Is a 29-year-old female who I have followed since childhood with a functionally bicuspid aortic valve with evidence of mild aortic valve stenosis and mild plus aortic regurgitation and some previous echocardiogram demonstrating mild aortic dilation. She is otherwise had normal heart function and clinical cardiac output and at 1 time had elevated blood pressures requiring lisinopril therapy but her blood pressures have been much better since. It has been roughly 2 years since her last evaluat (more content not included)... [facility] 12-10-2024 History of Presen t illness Narrative Reason for Appointment: Patient ID: Edgar Ortiz is a 29 y.o. female who presents for Amenorrhea Patient presents today for a Nurse OB Intake appointment. Patient is 10w2d with a Estimated Date of Delivery: 07/06/25 OB History Para Term AB Living 1 SAB IAB Ectopic Multiple Live Births # Outcome Date GA Lbr Cristo/2nd Weight Sex Type Anes PTL Lv 1 Current Current Medications: has a current medication list which includes the following prescription(s): valacyclovir. Medical History: Active Ambulatory Problems Diagnosis Date Noted No Active Ambulatory Problems Resolved Ambulatory Problems Diagnosis Date Noted No Resolved Ambulatory Problems Past Medical History: Diagnosis Date Aortic stenosis due to bicuspid aortic valve Von Willebrand disease (CMS/HCC) Family History Problem Relation Name Age of Onset Other (liver failure) Father Other (high blood pressure) Father Polycystic ovary syndrome Sister Other (high blood pressure) Sister Social History Tobacco Use Smoking status: Not on file Smokeless tobacco: Not on file Substance Use Topics Alcohol use: Not on file Drug use: Not on file History reviewed. No pertinent surgical history. Allergies Allergen Reactions Ibuprofen Bruising t/o the body Nsaids Other Reaction(s): Unknown Vitals: Estimated body mass index is 34.5 kg/m as calculated from the following: Height as of 06/02/24: 5' 2 . Weight as of this encounter: 188 lb 9.6 oz. BP: 120/70 Patient's last menstrual period was 09/29/2024. Assessment/Plan Diagnoses and all orders for this visit: Missed menses - US OB transvaginal; Future - Type and screen; Future - ABO/Rh; Future - CBC and differential - Hemoglobin A1c - RPR - Rubella antibody, IgG - Hepatitis B surface antigen - Hepatitis C antibody - HIV-1 and HIV-2 antibodies - Urine culture - POCT , urine manually resulted - POCT urinalysis dipstick manually resulted , unspecified gestational age - Type and screen; Future - ABO/Rh; Future - CBC and differential - Hemoglobin A1c - RPR - Rubella antibody, IgG - Hepatitis B surface antigen - Hepatitis C antibody - HIV-1 and HIV-2 antibodies - Rapid drug screen, urine; Future Encounter for supervision of normal first in first trimester - Rapid drug screen, urine; Future Cold sore - valACYclovir (Valtrex) 1 g tablet; Take 1 tablet (1,000 mg) by mouth in the morning and 1 tablet (1,000 mg) before bedtime. Do all this for 10 days. Nurse Note: OB Intake: Patient presents today for first OB visit. Patients history has been reviewed in great detail including any potential risks. Patient signed consent forms and patient desires testing in both trimesters. Patient currently has no complaints and has been advised to drink 6-8 glasses of water a day, eat no raw or undercooked meat, and stay away from [facility]. Patient has also been advised to not change litter boxes and eat 6 small meals a day. Patient has been consulted regarding the do's and don'ts of . Patient was given labs and all questions and concerns were answered. Patient will do Karval labs. Patient was sent script for Valtrex for cold sore outbreak. Follow Up: Patient is to return in 4 weeks for routine OB appointment. Follow Up: Patient is to have labs drawn at directed and return to office for initial OB appointment with provider. Patient may call office as needed with any concerns or questions. Nurse Visit Completed by: Edwige De Leon LPN documented in this encounter [facility] 06-02-2024 History of Presen t illness Narrative Reason for Appointment: Patient ID: Edgar Ortiz is a 28 y.o. female who presents for Pre-op Visit Patient presents today for Pre Op appointment. Patient is scheduled to undergo Diagnostic Laparoscopy, possible MARY, possible FOE, possible BSO on 07/02/[address] Serrato at [facility]. MEDICATIONS No current outpatient medications ALLERGIES Allergies [...] nursing note reviewed. Exam conducted with a manager logistic present. Vitals: Estimated body mass index is [...] reviewed, and patient is to proceed to [facility] OR. Follow Up: Patient is to follow up between 1-2 weeks post operative to assess proper healing and recovery from procedure. Documented by Christie Ricks LPN on behalf of: Jung Serrato DO documented in this encounter [facility] 01-19-2023 Hospital Discharg e instructions Fior Mendez DO - 01/19/2023 11:23 PM EDT Take the Diflucan as prescribed. Flagyl for possible bacterial vaginosis. We will give you a call if any of the STD swabs come back positive otherwise make sure to follow-up with your city wellness coordinator regarding the lesion on your cervix in the next few days. If you have any concerns or questions regarding your care today, please discuss with your nurse or physician prior to leaving the emergency department. Thank you for allowing us to take care of you at [facility]. In the next few days you may receive a survey by mail or e-mail asking about the care you received during this visit. Please complete this if you are able, as this feedback helps us provide the best care possible. The following attachments cannot be sent through Care Everywhere.Vaginal Yeast Infection (German)documented in this encounter [facility] [employer] Phone: Evaluation note Diagnosis Vaginal itching- Primary Pruritus of genital organs [facility]* Diagnosis Dyspareunia, female Dyspareunia Abnormal uterine bleeding Unspecified disorder of menstruation and other abnormal bleeding from female genital tract documented [facility] this [facility]ITAL[facility] EnergyEvaluation note* Diagnosis Preop examination Unspecified pre-operative examination PCOS (polycystic ovarian syndrome) Polycystic ovaries Dyspareunia in female Abnormal uterine bleeding (AUB) Hormone imbalance Elevated prolactin level Pelvic pain in female Unspecified symptom associated with female genital organs [facility] Diagnosis Missed menses , unspecified gestational age Encounter for supervision of normal first in first trimester Cold sore Herpes simplex without mention of complication [facility]* Diagnosis Second trimester state, incidental 14 weeks gestation of Von Willebrand disease ([facility]) Von Willebrand's disease Aortic stenosis due to bicuspid aortic valve documented in this encounter [facility] HealthcareEvaluation note* Diagnosis 19 weeks gestation of Second trimester state, incidental Well woman exam with routine gynecological exam Routine gynecological examination Screening, , for anatomic survey Encounter for anatomic survey Vaginal discharge Leukorrhea, not specified as infective Exposure to STD documented in this encounter [facility] HealthcareEvaluation note* Diagnosis Headache in , antepartum, second trimester- Primary documented in this encounter [facility] HealthEvaluation note* Diagnosis Second trimester state, incidental 23 weeks gestation of Diabetes mellitus screening Screening for diabetes mellitus documented in this encounter [facility] HealthcareEvaluation note* Diagnosis 28 weeks gestation of ([facility]) Von Willebrand disease (HCC) Von Willebrand's disease Aortic valve stenosis, etiology of cardiac valve disease unspecified documented in this encounter [facility] HealthcareInstructionsNot on filedocumented in [facility] Instructions * Patient Instructions* Andra Carver PA-C [...] Log into your personal health record on https://[email or web address][employer] and enter Z939 in the Education box to learn more about Sunburn: Care Instructions. Current as of: July 05, 2018 Content Version: 12.1 [employer]. Care instructions adapted under license by your healthcare professional. If you have questions about a medical condition or this instruction, always ask your healthcare professional. [employer] disclaims any warranty or liability for your [...] medicine. Get some extra rest. Take an orjc-jih-oalxyla pain medicine, such as acetaminophen (Tylenol), ibuprofen (Advil, Motrin),or naproxen (Aleve) to reduce fever and relieve body aches. Read and follow all instructions on thelabel. Do not take two or more pain medicines at the same time unless the doctor told you to. Many pain medicines have acetaminophen, which is Tylenol. Too much acetaminophen (Tylenol) can be harmful. Take an dfpw-kka-zvhixui cough medicine that contains dextromethorphan to help [...] Log into your personal health record on https://Outboxt.[employer] and enter H333 in the Education box to learn more about Bronchitis: Care Instructions. Current as of: June 17, 2018 Content Version: 12.20057325-1330 [employer]. Care instructions adapted under license by your healthcare professional. If you have questions about a medical condition or this instruction, always ask your healthcare professional. [employer] disclaims any warranty or liability for your use of this information. documented in this encounter* Patient Instructions* Arielle Ventura PA-C - 10/18/2019 12:07 PM EST Take [...] amount of fluids you drink. Take an yyoc-lkc-ahszcmi pain medicine if needed, such as acetaminophen [...] or plain hard candy. ? Take an anqt-ttf-fueanlw cough medicine that contains dextromethorphan to help [...] Log into your personal health record on https://Out[employer] and enter L652 in the Education box to learn more about Influenza (Flu): Care Instructions. Current as of: March 21, 2019 Content Version: 12.3 2336-9844 [employer]. Care instructions adapted under license by your healthcare professional. If you have questions about a medical condition or this instruction, always ask your healthcare professional. [employer] disclaims any warranty or liability for your [...] chances of quitting for good. Take an xhry-stg-bbyvuwy pain medicine, such as acetaminophen (Tylenol), ibuprofen [...] Log into your personal health record on https://Outboxt[employer] and enter D336 in the Education box to learn more about Pneumonia: Care Instructions. Current as of: March 21, 2019 Content Version: 12.3 6552-6612 [employer]. Care instructions adapted under license by your healthcare professional. If you have questions about a medical condition or this instruction, always ask your healthcare professional. [employer] disclaims any warranty or liability for your use of this information. documented in this encounter* Patient Instructions* Arielle Ventura PA-C - 03/23/2020 8:53 PM EDT Take [...] Log into your personal health record on https://Outboxt[employer] and enter D279 in the Education box to learn more about Cough: Care Instructions. Current as of: March 21, 2019 Content Version: 12.3 7159-1857 [employer]. Care instructions adapted under license by your healthcare professional. If you have questions about a medical condition or this instruction, always ask your healthcare professional. [employer] disclaims any warranty or liability for your use of this information. documented in this encounter* Patient Instructions* Veronica Kuo DO - 09/30/2020 1:14 PM EST Impetigo: Care Instructions Your Care Instructions Impetigo (say fd-ohj-YZ-go ) is a skin infection caused by [...] Log into your personal health record on https://MyChart.[employer] and enter S909 in the Education box to learn more about Impetigo: Care Instructions. Current as of: March 08, 2020 Content Version: 12.7 [employer]. Care instructions adapted under license by your healthcare professional. If you have questions about a medical condition or this instruction, always ask your healthcare professional. [employer] disclaims any warranty or liability for your use of this information. documented in this encounter History of Present Illness * Andra Carver PA-C - 06/21/2019 8:00 PM EDT PATIENT NAME: Edgar Ortiz [facility] [address] [place] [address] [place] [address] : 1995 DATE OF VISIT: 06/21/2019 SS#: [id number] PROVIDER: Andra Carver PA-C Chief Complaint [...] file Gets together: Not on file Attends taoism service: Not on file Active member of club or organization: Not on file Attends meetings of clubs or organizations: Not on file Relationship status: Not on file Other Topics Concern Not on file Social History Narrative Lives with boyfriend. 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 FAMILY HISTORY Family History [...] 1:11 PM EDT PATIENT NAME: Edgar Ortiz [facility] [address] [place] [address] [address] [place] [address] : 1995 DATE OF VISIT: 07/06/2019 #: [...] file Gets together: Not on file Attends taoism service: Not on file Active member of club or organization: Not on file Attends meetings of clubs or organizations: Not on file Relationship status: Not on file Other Topics Concern Not on file Social History Narrative Lives with boyfriend. 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 FAMILY HISTORY Family History [...] this visit. documented in this encounter* Arielle Ventura PA-C - 10/18/2019 11:35 AM EST PATIENT NAME: Edgar Ortiz [facility] [place] [address] : 1995 DATE OF VISIT: 10/18/2019 #: [id number] PROVIDER: Arielle Ventura PA-C Chief Complaint Patient presents with Emesis [...] file Gets together: Not on file Attends taoism service: Not on file Active member of club or organization: Not on file Attends meetings of clubs or organizations: Not on file Relationship status: Not on file Other Topics Concern Not on file Social History Narrative Lives with boyfriend. 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 FAMILY HISTORY Family History [...] Molecular oseltamivir (Tamiflu) 75 MG capsule pyrilamine-dextromethorphan (Jackson DM) 7.5-7.5 mg/5 mL Liqd ipratropium (ATROVENT) [...] 5 days . 10 capsule 0 pyrilamine-dextromethorphan (Jackson DM) 7.5-7.5 mg/5 mL Liqd Take 10 [...] tracking list. documented in this encounter* Arielle Ventura PA-C - 03/23/2020 8:48 PM EDT PATIENT NAME: Edgar Ortiz [facility] [address] [facility] [address] : 1995 DATE OF VISIT: 03/23/2020 #: [id number] PROVIDER: Arielle Ventura PA-C Chief Complaint Patient presents with Cough [...] file Gets together: Not on file Attends taoism service: Not on file Active member of club or organization: Not on file Attends meetings of clubs or organizations: Not on file Relationship status: Not on file Other Topics Concern Not on file Social History Narrative Lives with boyfriend. 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 FAMILY HISTORY Family History [...] on 03/23/2020 .) 22 g 0 pyrilamine-dextromethorphan (Jackson DM) 7.5-7.5 mg/5 mL Liqd Take 10 [...] on 03/23/2020 .) 22 g 0 pyrilamine-dextromethorphan (Jackson DM) 7.5-7.5 mg/5 mL Liqd Take 10 [...] this visit. documented in this encounter* Veronica Kuo DO - 09/30/2020 1:00 PM EST Patient Name: [facility] Location: [place] [address] Date Of : Date Of Visit: 1995 09/30/2020 MRN# Provider: [id number] Veronica Kuo DO Chief Complaint Patient presents with Rash [...] Care Instructions Your Care Instructions Impetigo (say yn-znp-TO-go ) is a skin infection caused by [...] Log into your personal health record on https://MyChart.[employer] and enter S909 in the Education box to learn more about Impetigo: Care Instructions. Current as of: March 08, 2020 Content Version: 12.7 5356-3504 [employer]. Care instructions adapted under license by your healthcare professional. If you have questions about a medical condition or this instruction, always ask your healthcare professional. 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 Litigation Attorney Expl anation Advance Directives and Living Will Documents on File Type Date Recorded Patient Commercial Litigation Attorney Expl anation Advance Directives and Living Will Power of Director Writing Documents on File Type Date Recorded Patient Commercial Litigation Attorney Expl anation ACP-Advance Directive ACP-Power of Director Writing Summary Purpose Family History No Family History Records FoundNo Family History Records FoundNo Family History Records FoundNo Family History Records FoundNo Family History Records FoundNo Family History Records FoundNo Family History Records FoundNo Family History Records Found Discharge Instructions * Instructions* Shannan Solitario MD - 08/11/2020 Tylenol and/or Motrin for any fevers or discomfort. Use Afrin daily as directed for 3 days. Urrj-pza-jdfpipz Claritin or Zyrtec daily while symptoms persist. [...] COMPLETE Jung Serrato MD [address] [place] [address] Referral ID Status Reason Start Date Expiration Date Visits Re quested Visits Authorized [id number] Open 05/27/2024 05/27/2025 1 1 Specialty Diagnoses / Procedures Referred By Jhonny langley Referred To Contact Diagnoses Elevated prolactin level Procedures MR brain w and wo contrast routine Jung Serrato DO [address] [facility] [place] [address] Referral ID Status Reason Start Date Expiration Date V isits Requested Visits Authorized [id number] Pending Review 06/02/2024 11/29/2024 1 1 Additional [...] Reason Comments Cough [facility] at [facility] care. [...] Procedures US PELVIS COMPLETE Jung Serrato MD [address] [place] [address] Referral ID Status Reason Start Date Expiration Date Visits Re quested Visits Authorized [id number] Open 05/27/2024 05/27/2025 1 1 Reason Comments Pre-op Visit Reason Comments Amenorrhea Reason Comments Routine Visit Reason Comments Headache X1 week with continu ed use of tylenol. Pt currently 21 weeks , denies complaints Addendum Note - Bertha Irving PA-C - 07/06/2019 2:02 PM EDT Miscellaneous Notes (unrecog nized section and content) Addended by: BERTHA IRVING on: 07/06/2019 02:02 PM Modules accepted: Orders documented in this encounter INFORMATION SOURCE (unrecogn ized section and content) DATE CREATED AUTHOR 07/19/2019 [facility] DATE CREATED AUTHOR AUTHOR'S ORGANIZ ATION [facility]20[facility] DATE CREATED AUTHOR AUTHOR'S ORGANIZ ATION 01/04/2022 [facility] DATE CREATED AUTHOR AUTHOR'S ORGANIZ ATION 02/10/2024 [facility] DATE CREATED AUTHOR AUTHOR'S ORGANIZ ATION 03/23/2025 [facility] DATE CREATED AUTHOR AUTHOR'S ORGANIZ ATION 04/02/2025 [facility] DATE CREATED AUTHOR AUTHOR'S ORGANIZ ATION 04/23/2025 [facility] DATE CREATED AUTHOR AUTHOR'S ORGANIZ ATION 05/04/2025 [facility] Ordered Prescriptions (unrec ognized section and content) [...] Indications: Other, Other Abx Indication: Bacterial vaginosis 2331 (Given - Provid er: Dianelys Mccormick RN) Scheduled Medication Order 02/23/2025 02/24/2025 02/25/2025 euhhnlhwsd-azojkgzjfnahr-ff ffeine (FIORICET, ESGIC) per tablet 1 tablet (COMPLETED) 1 tablet, Oral, ONCE, 1 dose, On [place] 02/24/25 at 2315, Maximum dose of acetaminophen is 4000 mg from all sources in 24 hours. 231 (Given - Provider: Yulia Hernandez RN) sodium chloride 0.9 % bolus 1,000 mL (COMPLETED) 1,000 mL (11.1 mL/kg), IntraVENous, at 983.6 mL/hr, Administer over 61 Minutes, ONCE, On [place] 02/24/25 at 2315, For 1 dose, For adult patients weighing > 55 kg (120 lbs.) and less than <50 years of age initiate 0.9NS at 500 mL/ hr. All bolus orders are to be given over 10 to 15 minutes 2318 (New Bag - Provider: Yulia Hernandez, BITA) 0021 (Stopped - Provider: Yulia Hernandez RN) Care Teams (unrecognized sec tion and content) Miter Grinder Operator Relationship Specialty Start Date End Date Joi Lewis PCP - General 01/23/16 Miter Grinder Operator Relationship Specialty Start Date End Date Joi Lewis MD PCP - General 01/23/16 Miter Grinder Operator Relationship Specialty Start Date End Date Joi Lewis MD PCP - General 01/23/16 Miter Grinder Operator Relationship Specialty Start Date End Date Joi Lewis MD [address] [place] [address] PCP - General Internal Medicine 02/18/23 Miter Grinder Operator Relationship Specialty Start Date End Date Joi Lewis MD [address] [place] [address] PCP - General Internal Medicine 02/18/23 Miter Grinder Operator Relationship Specialty Start Date End Date Joi Lewis MD [address] [place] [address] PCP - General Internal Medicine 02/18/23 Miter Grinder Operator Relationship Specialty Start Date End Date Joi Lewis MD [address] [place] [address] PCP - General Internal Medicine 02/18/23 Miter Grinder Operator Relationship Specialty Start Date End Date Joi Lewis MD [address] [place] [address] PCP - General Internal Medicine 02/18/23 Miter Grinder Operator Relationship Specialty Start Date End Date Joi Lewis MD [address] [facility] [place] [address] PCP - General 04/29/18 Miter Grinder Operator Relationship Specialty Start Date End Date Joi Lewsi MD [address] [place] [address] PCP - General Internal Medicine 02/18/23 Miter Grinder Operator Relationship Specialty Start Date End Date Joi Lewis MD [address] [place] [address] PCP - General Internal Medicine 02/18/23 Miter Grinder Operator Relationship Specialty Start Date End Date Joi Lewis MD [address] [place] [address] PCP - General Internal Medicine 02/18/23 Miter Grinder Operator Relationship Specialty Start Date End Date Joi Lewis MD [address] [place] [address] PCP - General Internal Medicine 02/18/23 Miter Grinder Operator Relationship Specialty Start Date End Date Joi Lewis MD PCP - General 01/23/16 Miter Grinder Operator Relationship Specialty Start Date End Date Joi Lewis MD [address] [place] [address] PCP - General Internal Medicine 02/18/23 Miter Grinder Operator Relationship Specialty Start Date End Date Unallocated, Bon Louis MD [address] [place] [address] PCP - General Family Medicine 03/17/25 Miter Grinder Operator Relationship Specialty Start Date End Date Joi Lewis MD PCP - General 01/23/16 Miter Grinder Operator Relationship Specialty Start Date End Date Unallocated, Bon Louis MD [facility] [place] [address] PCP - [facility] Family Medicine 03/17/25 Miter Grinder Operator Relationship Specialty Start Date End Date Unallocated, Bon Louis MD [facility] [address] [place] [address] PCP - [facility] 03/17/25 Miter Grinder Operator Relationship Specialty Start Date End Date Unallocated, Bon Louis MD [facility] [address] [place] [address] PCP - [facility] Family Medicine 03/17/25 FOR RECORDS PERTAINING TO PATIENTS WHO ARE [...] BE BASED ON THE PRIMARY CLINICAL RECORDS. [facility] [employer] [facility]. provides no warranty or guarantee of the accuracy or completeness of information in this document.
== END 2025-05-06 18:35 | disposition home or self-care (01) ==
LOC: FBCO 18:05 → FBC 18:07
PROVIDERS: PCP Internal Medicine; Visit Provider Obstetrics & Gynecology
DX: O26.893 Other specified pregnancy related conditions, third trimester (principal)
CPT/HCPCS: 59025

== ENCOUNTER 2025-05-10 14:40 | Outpatient (OUT) | payer MEDICAID, SELFPAY ==
--- OUTSIDE RECORDS SUMMARY | 2016-01-29 14:00 | XMS_ITS | Encounter Summary ---
Author Organization [facility] Address [address] [facility], [address] [place] [address] Care Team Providers Care Test Bore Helper Name Role Phone Oliver Lozano MD Primary Care Provider [phone] Encounter Details Date Type Department Care Team (Late st Contact Info) Description 01/29/2016 2:00 PM EDT Hospital Encounter [facility] Occupational Therapy [address] [phone] Jane Cruz MD [address] [place] [address] Makayla Chan OT Social History Tobacco Use Types Packs/Day Years Used Date Smoking Tobacco: Never Smokeless Tobacco: Never Alcohol Use Standard Drinks/Week Comments Not Currently 0 (1 standard drink = 0.6 oz pur e alcohol) Socially AUDIT-C Answer Date Recorded Q1: How often do you have a drink containing alcohol? Never 02/24/2025 Q2: How many drinks containi ng alcohol do you have on a typical day when you are drinking? Patient does not drink Q3: How often do you have si x or more drinks on one occasion? Never 02/24/2025 Overall Financial Resource Strain (CARDIA) Answe r Date Recorded How hard is it for you to pa y for the very basics like food, housing, medical care, and heating? Not hard at all 08/18/2023 PHQ-2 Answer Date Recorded PHQ-9 Total Score 0 02/08/2024 Hunger Vital Sign Answer Date Recorded Within the past 12 months, y ou worried that your food would run out before you got the money to buy more. Never true 08/18/20 23 Within the past 12 months, t he food you bought just didn't last and you didn't have money to get more. Never true 08/18/2023 PRAPARE - Transportation Answer Date Re corded Lack of Transportation (Medical) Not on file 08/18/2023 In the past 12 months, has l ack of transportation kept you from meetings, work, or from getting things needed for daily living? No 08/18/2023 Housing Stability Vital Sign Answer Nuno e Recorded Unable to Pay for Housing in the Last Year Not o n file 08/18/2023 Number of Places Lived in the Last Year Not on f ile 08/18/2023 In the last 12 months, was t here a time when you did not have a steady place to sleep or slept in a correction (including now)? No 08/18/2023 Food Insecurity Answer Date Recorded Within the past 12 months, y ou worried that your food would run out before you got the money to buy more. 1 08/18/2023 Within the past 12 months, t he food you bought just didn't last and you didn't have money to get more. 1 08/18/2023 Estimated Date of Delivery Comme nts Yes 07/06/2025 Based on last me nstrual period of 09/29/2024 (Exact Date) Sex and Gender Information Value Date Recorded Sex Assigned at Not on file Legal Sex Female 1:05 PM EST Gender Identity Not on file Sexual Orientation Not on file COVID-19 Exposure Response Date Recorded In the last 10 days, have yo u been in contact with someone who was confirmed or suspected to have Coronavirus/COVID-19? No / Unsure 01/19/2023 9:24 PM EDT documented as of this encounter Functional Status documented as of this encounter Progress Notes * Makayla Chan OT - 02/05/2016 9:41 AM EDT [facility] Outpatient Occupational Therapy Plan of Care Patient Name: Edgar Moraes Balta : 1995 (20 y.o.) Gender: female Diagnosis: RRF fracture dislocation S62.604S Oliver Lozano Referring physician:Jane Cruz MD Evaluations Modalities [x] Evaluation and Treatment [x] Cold/Hot Pack [] Re-Evaluations [] Electrical Stimulation [] Neurobehavioral Status Exam [] Ultrasound/ Phono [] Other [x] HEP [x] Paraffin Bath [] Whirlpool/Fluido [] Other: Procedures [] Activities of Daily Living [] Therapeutic Activites [] Cognitive Skills Development [x] Therapeutic Exercises [x] Manual Therapy Technique(s) [] Wheelchair Assessment/ Training [] Neuromuscular Re-education [] Debridement/ Dressing [x] Orthotic/Splint Fitting and Training [] Other: (Specify) [x] Checkout for Orthotic/Prosthertic Use Frequency: 2-3 times/week Duration:6 weeks Subjective report: Time Frame for assisted goals : 6 weeks long term care phlebotomist goal 1: Pt will improve WOOD RRF = 200 See below [ ]Met [ ]Partially met [ ]Not met assisted goal 2: Pt will improve WOOD RSF = 240 cont [ ]Met [X]Partially met [ ]Not met long term care phlebotomist goal 3: Pt will decrease edema over PIP RRF = 5.2 cm cont [ ]Met [X]Partially met [ ]Not met assisted goal 4: Pt will report increased functional use of hand with IADLs sindhu [ ]Met [ ]Partially met [X]Not met Time Frame for Short term goals: 4 weeks Short term goal 1: Pt will improved WOOD RRF = 100 cont [ ]Met [X]Partially met [ ]Not met Short term goal 2: Pt will increase WOOD RSF = 175 cont [ ]Met [X]Partially met [ ]Not met Short term goal 3: Pt will be I with HEP Met; splint adjusted per ok to 20 deg ext lag at PIP ofRRF [X]Met [ ]Partially met [ ]Not met ADDITIONAL COMMENTS RIGHT HAND Ring MP 0-68 PIP 25-45 DIP 15-15 WOOD 88 Rehab Potential [x] Excellent [] Good [] Fair [] Poor OT Comments: Pts splint was adjusted to -20 deg extension lag at PIP joint on 01/29/2016 Comments: Regulatory Requirements I have reviewed this plan of care and certify a need for medically necessary rehabilitation services. Physician Signature: Date: Please sign and fax to [phone] * Makayla Chan OT - 01/29/2016 2:55 PM EDT [facility] Outpatient Occupational Therapy DAILY TREATMENT NOTE Date: 01/29/2016 Patient???s Name: Edgar Gifford Date of : 1995 (20 y.o.) Gender: female Diagnosis: RRF fracture dislocation S62.604S Referring Provider: Jane Cruz MD INSURANCE OT Insurance Information: [facility] Total # of Visits Approved: 30 Total # of Visits to Date: 3 PAIN [x]No []Yes Location: Pain Rating (0-10 pain scale): 0/10 denies at rest; pt is not perfoming PROM and is splinted most of the time. Pain Description: SUBJECTIVE Pt. States that she is compliant with HEP and splinting program. Flow Sheet Exercise Weight/Level Reps/Time Comments 6 pack hands 20 x joint blocking 20 x AAROM right ring finger 5x Pt educated on AAROM, and then to end with a place and hold Modality Flow Sheet: START STOP Tx Modality Electrical Stim: Ultrasound: ___ W/cm2 x ___ mins Duty factor: __100% __50% __20% __10% Head size: MHz: __1mHz __2 mHz __3mHz Location: 10 min right hand for stiffness Hot Pack: 10 min right hand for stiffness Paraffin: Cold Pack: GOALS/ TREATMENT SESSION: Subjective report: Time Frame for long term care phlebotomist goals : 6 weeks assisted goal 1: Pt will improve WOOD RRF = 200 See below []Met []Partially met []Not met long term care phlebotomist goal 2: Pt will improve WOOD RSF = 240 cont []Met [x]Partially met []Not met assisted goal 3: Pt will decrease edema over PIP RRF = 5.2 cm cont []Met [x]Partially met []Not met long term care phlebotomist goal 4: Pt will report increased functional use of hand with IADLs sindhu []Met []Partially met [x]Not met []Met []Partially met []Not met Time Frame for Short term goals: 4 weeks Short term goal 1: Pt will improved WOOD RRF = 100 cont []Met [x]Partially met []Not met Short term goal 2: Pt will increase WOOD RSF = 175 cont []Met [x]Partially met []Not met Short term goal 3: Pt will be I with HEP Met; splint adjusted per MD ok to 20 deg ext lag at PIP ofRRF [x]Met []Partially met []Not met []Met []Partially met []Not met []Met []Partially met []Not met ADDITIONAL COMMENTS RIGHT HAND Ring MP 0-68 PIP 25-45 DIP 15-15 WOOD 88 EDUCATION New Education provided to patient/family/caregiver: [x]Yes: []No (Continued review of prior education) If yes Education Provided: AAROM to RRF Method of Education: [x]Discussion [x]Demonstration [] Written []Other Evaluation of Patient???s Response to Education: [x]Patient and or caregiver verbalized understanding []Patient and or Caregiver Demonstrated without assistance []Patient and or Caregiver Demonstrated with assistance []Needs additional instruction to demonstrate understanding of education ASSESSMENT Patient tolerated today???s treatment session: [] Good [] Fair [] Poor Limitations/difficulties with treatment session due to: []Pain []Fatigue []Other medical complications []Other Goal Assessment: [] No Change [x]Improved Comments:Improved WOOD for RRF PLAN [x]Continue with current plan of care []Medical ???Hold?? []I???Hold?? per patient request [] Change Treatment plan: [] Insurance hold __ Other TIME Time Treatment session was INITIATED 211 Time Treatment session was STOPPED [phone] Electronically signed by KIRTI Person, OTR/Helene 01/29/2016 2:55 PM documented in this encounter Plan of Treatment Upcoming Encounters Date Type Department Care Team (Late st Contact Info) Description 05/17/2025 4:00 PM EDT Routine [facility] Sales Consultant [employer] [place] [address] [facility] [place] [address] Emma Nava DO [address] [place] [address] complete transfer of care from Dr. Serrato 06/07/2025 4:00 PM EDT Routine [facility] Sales Consultant [employer] [place] [address] [place] [address] Jessika Parrish DO [address] [place] [address] ABEL 06/14/2025 4:00 PM EDT Routine [facility] Sales Consultant [employer] [place] [address] [place] [facility] [place] [address] Jessika Parrish DO [address] [place] [address] ABEL 06/21/2025 4:00 PM EDT Routine [facility] Sales Consultant [employer] [place] [address] [place] [address] Jessika Parrish DO [address] [place] [address] ABEL 06/28/2025 4:00 PM EDT Routine [facility] Sales Consultant [employer] [place] [address] [place] [address] Jessika Parrish DO [address] [place] [address] ABEL documented as of this encounter Visit Diagnoses Not on filedocumented in this encounter Care Teams Test Bore Helper Relationship Specialty Start Date End Date Oliver Lozano MD PCP - General 01/23/16 documented as of this encounter
--- OUTSIDE RECORDS SUMMARY | 2016-02-08 14:45 | XMS_ITS | Encounter Summary ---
Author Organization [facility] Address [address] [facility], [address] [place] [address] Care Team Providers Care Ice Cream Mixer Name Role Phone Oliver Lozano MD Primary Care Provider [phone] Encounter Details Date Type Department Care Team (Late st Contact Info) Description 02/08/2016 2:45 PM EDT Hospital Encounter [facility] Occupational Therapy [address] [phone] Jane Cruz MD [address] [place] [address] Makayla Chan OT Social History Tobacco Use [...] place to sleep or slept in a longterm (including now)? No 08/18/2023 Food Insecurity Answer [...] Chan OT - 02/08/2016 3:25 PM EDT [facility] Outpatient Occupational Therapy DAILY TREATMENT NOTE Date: 02/08/2016 Patient???s Name: Edgar Gifford Date of : 1995 (20 y.o.) Gender: female Diagnosis: RRF fracture dislocation S62.604S Referring Provider: Jane Cruz MD INSURANCE OT Insurance Information: [facility] Total # of Visits Approved: 30 Total [...] Pt given yellow theraputty forhome use. coin crop picker 16 coins PROM x Educated for [...] TREATMENT SESSION: Subjective report: Time Frame for intermediate teacher goals : 6 weeks intermediate teacher goal 1: Pt will improve WOOD RRF = 200 cont []Met [x]Partially met []Not met skilled nursing goal 2: Pt will improve WOOD RSF = 240 cont []Met []Partially met [x]Not met intermediate teacher goal 3: Pt will decrease edema over PIP RRF = 5.2 cm cont []Met [x]Partially met []Not met intermediate teacher goal 4: Pt will report increased functional [...] Info) Description 05/17/2025 4:[address] [facility] Sustainability Specialist [place] [address] [place] [phone] Emma Nava DO [address] [place], [place] [phone] complete transfer of care from Dr. Serrato 06/07/2025 4:[address] [facility] Sustainability Specialist [place] [address] [place] [address] [facility] [address] [place] [address] ABEL 06/14/2025 4:[address] [facility] Sustainability Specialist [place] [address] [place] [address] Francois Jessika, [address] [place] [address] ABEL 06/21/2025 4:[address] [facility] Sustainability Specialist [place] [address] [place] [address] Francois Jessika, [address] [place] [address] ABEL 06/28/2025 4:[address] [facility] Sustainability Specialist [place] [address] [place] [address] FrancoisJessika, [address] [place] [address] ABEL documented as of this encounter Visit Diagnoses Not on filedocumented in this encounter Care Teams Ice Cream Mixer Relationship Specialty Start Date End Date Oliver Lozano MD PCP - General 01/23/16 documented as of this encounter
--- OUTSIDE RECORDS SUMMARY | 2016-02-15 15:15 | XMS_ITS | Encounter Summary ---
Author Organization [facility] Address [address] [facility], [address] [place] [address] Care Team Providers Care Sweet Pickle Maker Name Role Phone Oliver Lozano MD Primary Care Provider [phone] Encounter Details Date Type Department Care Team (Late st Contact Info) Description 02/15/2016 3:15 PM EDT Hospital Encounter [facility] Occupational Therapy [address] [phone] Jane Cruz MD [address] [place] [address] Makayla Chan OT Social History Tobacco Use [...] place to sleep or slept in a care home (including now)? No 08/18/2023 Food Insecurity Answer [...] Chan OT - 02/15/2016 2:49 PM EDT [facility] Outpatient Occupational Therapy DAILY TREATMENT NOTE Date: 02/15/2016 Patient???s Name: Edgar Gifford Date of : 1995 (20 y.o.) Gender: female Diagnosis: RRF fracture dislocation S62.604S Referring Provider: Jane Cruz MD INSURANCE OT Insurance Information: [facility] Total # of Visits Approved: [...] TREATMENT SESSION: Subjective report: Time Frame for residential goals : 6 weeks residential goal 1: Pt will improve WOOD RRF = 200 Cont; see below []Met [x]Partially met []Not met residential goal 2: Pt will improve WOOD RSF = 240 Cont; see below []Met [x]Partially met []Not met director long term care goal 3: Pt will decrease edema over PIP RRF = 5.2 cm cont []Met [x]Partially met []Not met residential goal 4: Pt will report increased functional [...] Info) Description 05/17/2025 4:00 PM EDT Routine [facility] Biodiesel Plant Operations Engineer [place] [address] [phone] Emma Nava DO [address] [place], [place] [phone] complete transfer of care from Dr. Serrato 06/07/2025 4:00 PM EDT Routine [facility] [facility] Operations Engineer [place] [address] [facility] [address] [place] [phone] Jessika Parrish DO [address] [place], [place] [phone] ABEL 06/14/2025 4:00 PM EDT Routine [facility] [facility] Operations Engineer [place] [address] [place] [address] [facility] [address] [place] [address] ABEL 06/21/2025 4:00 PM EDT Routine [facility] Plant Operations Engineer [place] [address] [place] [address] Francois Jessika, [address] [place] [address] ABEL 06/28/2025 4:00 PM EDT Routine [facility] [employer] Plant Operations Engineer [place] [address] [address] [phone] Francois Jessika, [facility] [place] [address] ABEL documented as of this encounter Visit Diagnoses Not on filedocumented in this encounter Care Teams Sweet Pickle Maker Relationship Specialty Start Date End Date Oliver Lozano MD PCP - General 01/23/16 documented as of this encounter
--- OUTSIDE RECORDS SUMMARY | 2016-02-21 16:15 | XMS_ITS | Encounter Summary ---
Author Organization [facility] Address [address] [facility], [address] [place] [address] Care Team Providers Care Adjuster Leader Name Role Phone Oliver Lozano MD Primary Care Provider Encounter Details Date Type Department Care Team (Late st Contact Info) Description 02/21/2016 4:15 PM EDT Hospital Encounter [facility] Occupational Therapy [address] [phone] Jane Cruz MD [address] [place] [address] Makayla Chan OT Social History Tobacco Use [...] Progress Notes * Makayla Chan OT - 02/21/2016 4:20 PM EDT [facility] Outpatient Occupational Therapy DAILY TREATMENT NOTE Date: 02/21/2016 Patient???s Name: Edgar Gifford Date of : 1995 (20 y.o.) Gender: female Diagnosis: Referring Provider: INSURANCE OT Insurance Information: [facility] Total # of Visits Approved: 30 Total # of Visits to Date: 6 PAIN []No [x]Yes Location: Pain Rating (0-10 pain scale): 6/10 at worst Pain Description: SUBJECTIVE Pt states that finger feels stiff. She States that she tries to do her exercises at homebut that it is painful Flow Sheet Exercise Weight/Level Reps/Time Comments hand helper 10 x 4 2 yellow joint blocking 20x putty yellow Stretch 5 min yellow wand Roll into extension 2 min Modality Flow Sheet: START STOP Tx Modality Electrical Stim: Ultrasound: ___ W/cm2 x ___ mins Duty factor: __100% __50% __20% __10% Head size: MHz: __1mHz __2 mHz __3mHz Location: 10 min right hand for pain and stiffness Hot Pack: 10 min right hand for pain and stiffness Paraffin: Cold Pack: GOALS/ TREATMENT SESSION: Subjective report: Time Frame for longterm goals : 6 weeks longterm goal 1: Pt will improve WOOD RRF = 200 Cont see below []Met [x]Partially met []Not met longterm goal 2: Pt will improve WOOD RSF = 240 cont []Met [x]Partially met []Not met terminal system operator goal 3: Pt will decrease edema over PIP RRF = 5.2 cm cont []Met [x]Partially met []Not met terminal system operator goal 4: Pt will report increased functional use of hand with IADLs cont []Met [x]Partially met []Not met Time Frame for Short term goals: 4 weeks Short term goal 1: Pt will improved WOOD RRF = 100 met [x]Met []Partially met []Not met Short term goal 2: Pt will increase WOOD RSF = 175 met [x]Met []Partially met []Not met Short term goal 3: Pt will be I with HEP met [x]Met []Partially met []Not met ADDITIONAL COMMENTS RIGHT HAND Ring MP 0-80 PIP 22-55 DIP 0-15 WOOD 128 EDUCATION New Education provided to patient/family/caregiver: []Yes: [x]No (Continued review of prior education) If yes Education Provided: Method of Education: []Discussion []Demonstration [] Written []Other Evaluation of Patient???s [...] []Other Goal Assessment: [] No Change [x]Improved Comments:Slight improvement in WOOD PLAN [x]Continue with current plan of care []Medical ???Hold?? []I???Hold?? per patient request [] Change Treatment plan: [] Insurance hold __ Other TIME Time Treatment session was INITIATED 419 Time Treatment session was STOPPED 505 [id number] Electronically signed by KIRTI Person, OTR/Helene 02/21/2016 4:20 PM documented in this encounter Plan of Treatment Upcoming Encounters Date Type Department Care Team (Late st Contact Info) Description 05/17/2025 4:00 PM EDT Routine [facility] Environmental Monitoring Specialist [place] [address] [phone] Emma Nava DO [address] [place] [address] complete transfer of care from Dr. Serrato 06/07/2025 4:00 PM EDT Routine [facility] Environmental Monitoring Specialist [place] [address] [facility] [address] [place] [phone] Jessika Parrish DO [address] [place], [place] [phone] ABEL 06/14/2025 4:00 PM EDT Routine [facility] Environmental Monitoring Specialist [place] [address] [place] [phone] Jessika Parrish DO [address] [facility], [place] [phone] ABEL 06/21/2025 4:00 PM EDT Routine [facility] Environmental Monitoring Specialist [address] [phone] Francois JessikaDO [address] [place], [place] [phone] ABEL 06/28/2025 4:00 PM EDT Routine [facility] Environmental Monitoring Specialist [place] [address] 242683 [address] [phone] Jessika Parrish DO [facility] [place], [place] [phone] ABEL documented as of this encounter Visit Diagnoses Not on filedocumented in this encounter Care Teams Adjuster Leader Relationship Specialty Start Date End Date Oliver Lozano MD PCP - General 01/23/16 documented as of this encounter
--- OUTSIDE RECORDS SUMMARY | 2016-02-28 08:00 | XMS_ITS | Encounter Summary ---
Author Organization [facility] Address [address] [facility], [address] [place] [address] Care Team Providers Care Directory Clerk Name Role Phone Oliver Lozano MD Primary Care Provider Encounter Details Date Type Department Care Team (Late st Contact Info) Description 02/28/2016 8:00 AM EDT Hospital Encounter [facility] Occupational Therapy [address] [phone] Jane Cruz MD [address] [place] [address] Makayla Chan OT Social History Tobacco Use [...] place to sleep or slept in a nursing home (including now)? No 08/18/2023 Food Insecurity [...] Info) Description 05/17/2025 4:00 PM EDT Routine [facility] Staff Appraiser [place] [address] [facility] [place] [address] Emma Nava DO [address] [place] [address] complete transfer of care from Dr. Serrato 06/07/2025 4:00 PM EDT Routine [facility] Staff Appraiser [place] [address] [facility] [place] [address] Francois Jessika, DO [address] [place] [address] ABEL 06/14/2025 4:00 PM EDT Routine [facility] Staff Appraiser [place] [address] [place], [place] [address], [place] [address] Jessika Parrish DO [address] [place] [address] ABEL 06/21/2025 4:00 PM EDT Routine [facility] Staff Appraiser [place] [address] [place], [place] [address], [place] [address] Jessika Parrish DO [address] [place] [address] ABEL 06/28/2025 4:00 PM EDT Routine [facility] Staff Appraiser [place] [address] [place], [place] [address], [place] [address] Francois Jessika, [address] [place] [address] ABEL documented as of this encounter Visit Diagnoses Not on filedocumented in this encounter Care Teams Directory Clerk Relationship Specialty Start Date End Date Oliver Lozano MD PCP - General 01/23/16 documented as of this encounter
--- OUTSIDE RECORDS SUMMARY | 2016-03-27 14:15 | XMS_ITS | Encounter Summary ---
Author Organization [facility] Address [address] [facility], [address] [place] [address] Care Team Providers Care Custody Assistant Name Role Phone Oliver Lozano MD Primary Care Provider Encounter Details Date Type Department Care Team (Late st Contact Info) Description 03/27/2016 2:15 PM EDT Hospital Encounter [facility] Occupational Therapy [address] [phone] Jane Cruz MD [address] [place] [address] Makayla Chan OT Social History Tobacco Use [...] Progress Notes * Makayla Chan OT - 03/27/2016 2:35 PM EDT [facility] Outpatient Occupational Therapy DAILY TREATMENT NOTE Date: 03/27/2016 Patient???s Name: Edgar Gifford Date of : 1995 (20 y.o.) Gender: female Diagnosis: RRF fracture dislocation S62.604S Referring Provider: Jane Cruz MD INSURANCE OT Insurance Information: [facility] Total # of Visits Approved: 30 Total # of Visits to Date: 9 PAIN []No [x]Yes Location: Pain Rating (0-10 pain scale): 4/10; not constant Pain Description: SUBJECTIVE Using hand to carry objects; better grasp. Pt verbalizes occasional compliance with HEP;Encouraged to complete as instructed; everyday and every couple hours Flow Sheet Exercise Weight/Level Reps/Time Comments hand helper 10 x 4 3 yellow Joint blocking 20x putty yellow 5 min yellow wand Modality Flow Sheet: START STOP Tx Modality Electrical Stim: Ultrasound: ___ W/cm2 x ___ mins Duty factor: __100% __50% __20% __10% Head size: MHz: __1mHz __2 mHz __3mHz Location: 10 min right hand for pain and stiffness Hot Pack: 10 min right hand for pain and stiffness Paraffin: Cold Pack: GOALS/ TREATMENT SESSION: Subjective report: Time Frame for long term care administrator goals : 6 weeks long term care administrator goal 1: Pt will improve WOOD RRF = 200 See below []Met [x]Partially met []Not met long term care administrator goal 2: Pt will improve WOOD RSF = 240 cont []Met []Partially met []Not met penitentiary goal 3: Pt will decrease edema over PIP RRF = 5.2 cm cont []Met []Partially met []Not met penitentiary goal 4: Pt will report increased functional use of hand with IADLs cont []Met []Partially met []Not met Time Frame for Short term goals: 4 weeks Short term goal 1: Pt will improved WOOD RRF = 100 met []Met []Partially met []Not met Short term goal 2: Pt will increase WOOD RSF = 175 met []Met []Partially met []Not met Short term goal 3: Pt will be I with HEP met []Met []Partially met []Not met ADDITIONAL COMMENTS RIGHT HAND Ring MP 0-92 PIP 20-71 DIP 8-20 WOOD 155 EDUCATION New Education provided to patient/family/caregiver: [x]Yes: []No (Continued review of prior education) If yes Education Provided: Reviewed HEP Method of Education: []Discussion []Demonstration [] Written [...] Goal Assessment: [] No Change [x]Improved Comments:Improved WOOD; Prior to treatment pt had 31 degree extension lag at PIP joint of right ringfinger. Improved 11 degrees PLAN [x]Continue with current plan of care; sending MD updated POC and request to continue []Medical ???Hold?? []I???Hold?? per patient request [] Change Treatment plan: [] Insurance hold __ Other TIME Time Treatment session was INITIATED 232 Time Treatment session was STOPPED [id number] Electronically signed by KIRTI Person, OTR/L 03/27/2016 2:35 PM documented in this encounter Plan of Treatment Upcoming Encounters Date Type Department Care Team (Late st Contact Info) Description 05/17/2025 4:00 PM EDT Routine [facility] Aluminum Siding Mechanic [place] [address] [phone] Emma Nava DO [address] [place], [place] [phone] complete transfer of care from Dr. Serrato 06/07/2025 4:00 PM EDT Routine [facility] Aluminum Siding Mechanic [place] [address] [phone] Jessika Parrish DO [address] [place], [place] [phone] ABEL 06/14/2025 4:00 PM EDT Routine [facility] Aluminum Siding Mechanic [place] [address] [place] [address], [place] [address] FrancoisJessika [address] [facility] [place] [address] ABEL 06/21/2025 4:00 PM EDT Routine [facility] Aluminum Siding Mechanic [id number] [phone] FrancoisJessika [address] [place] [address] ABEL 06/28/2025 4:00 PM EDT Routine [facility] Aluminum Siding Mechanic [place] [facility] [address] [place] [address], [place] [address] FrancoisJessika [address] [place] [address] ABEL documented as of this encounter Visit Diagnoses Not on filedocumented in this encounter Care Teams Custody Assistant Relationship Specialty Start Date End Date Oliver Lozano MD PCP - General 01/23/16 documented as of this encounter
--- OUTSIDE RECORDS SUMMARY | 2016-04-03 15:45 | XMS_ITS | Encounter Summary ---
Author Organization [facility] Address [address] [facility], [address] [place] [address] Care Team Providers Care Fashion Merchandiser Name Role Phone Oliver Lozano MD Primary Care Provider Encounter Details Date Type Department Care Team (Late st Contact Info) Description 04/03/2016 3:45 PM EDT Hospital Encounter [facility] Occupational Therapy [address] [phone] Jane Cruz MD [address] [place] [address] Makayla Chan OT Social History Tobacco Use [...] Progress Notes * Makayla Chan OT - 04/03/2016 3:40 PM EDT [facility] Outpatient Occupational Therapy DAILY TREATMENT NOTE Date: 04/03/2016 Patient???s Name: Edgar Gifford Date of : 1995 (20 y.o.) Gender: female Diagnosis: RRF fracture dislocation S62.604S ?? Referring Provider: Jane Cruz MD INSURANCE OT Insurance Information: [facility] Total # of Visits Approved: 30 Total # of Visits to Date: 10 PAIN []No [x]Yes Location: Pain Rating (0-10 pain scale): 01/20 Pain Description: SUBJECTIVE Pt states that she has been doing her exercises with greater frequency this past week. States she has a F/U next month with ortho. Flow Sheet Exercise Weight/Level Reps/Time Comments power web yellow 20x hand helper 10 x 4 40x putty red 3 min flexion stretch; 4 min butcher all round GPB 25 joint blocking Modality Flow Sheet: START STOP Tx Modality Electrical Stim: Ultrasound: ___ W/cm2 x ___ mins Duty factor: __100% __50% __20% __10% Head size: MHz: __1mHz __2 mHz __3mHz Location: 10 min right hand for pain and stiffness Hot Pack: 10 min right hand for pain and stiffness Paraffin: Cold Pack: GOALS/ TREATMENT SESSION: Subjective report: Time Frame for joint terminal attack controller goals : 6 weeks senior living goal 1: Pt will improve WOOD RRF = 200 See below []Met [x]Partially met []Not met joint terminal attack controller goal 2: Pt will improve WOOD RSF = 240 cont []Met [x]Partially met []Not met senior living goal 3: Pt will decrease edema over PIP RRF = 5.2 cm cont []Met [x]Partially met []Not met senior living goal 4: Pt will report increased functional [...] [x]Met []Partially met []Not met ADDITIONAL COMMENTS HAND Right ring Left ring MP 0-96 0-89 PIP 24-80 0-104 DIP 0-19 0-92 WOOD 171 285 EDUCATION New Education provided to patient/family/caregiver: [x]Yes: []No (Continued review of prior education) If yes Education Provided: reviewed importance of HEP; pt educated on use of rubber glove fingers to use for wrapping finger into flexion. Method of Education: [x]Discussion [x]Demonstration [] Written [...] Assessment: [] No Change [x]Improved Comments: Pt increased WOOD of ring finger. After treatment, Pts finger wrapped into flexion with coban. She had 90 deg PIP flexion and 60 deg DIP flexion with static wrap. PLAN [x]Continue with current plan of care []Medical ???Hold?? []I???Hold?? per patient request [] Change Treatment plan: [] Insurance hold __ Other TIME Time Treatment session was INITIATED 332 Time Treatment session was STOPPED 425 [id number] Electronically signed by KIRTI Person, OTR/L 04/03/2016 3:40 PM * Makayla Chan OT - 03/18/2016 4:48 PM EDT [facility] Outpatient Occupational Therapy Plan of Care Patient Name: Edgar Gifford : 1995 (20 y.o.) Gender: female Diagnosis:RRF fracture dislocation S62.604S ?? Oliver Lozano Referring physician: Jane Cruz MD Evaluations Modalities [x] Evaluation and Treatment [x] Cold/Hot Pack [] Re-Evaluations [] Electrical Stimulation [] Neurobehavioral Status Exam [x] Ultrasound/ Phono [] Other [x] HEP [x] Paraffin Bath [] Whirlpool/Fluido [] Other: Procedures [] Activities of Daily Living [] Therapeutic Activites [] Cognitive Skills Development [x] Therapeutic Exercises [x] Manual Therapy Technique(s) [] Wheelchair Assessment/ Training [] Neuromuscular Re-education [] Debridement/ Dressing [x] Orthotic/Splint Fitting and Training [] Other: (Specify) [x] Checkout for Orthotic/Prosthertic Use Frequency: 2 times/week Duration: 4 - 6 weeks Subjective report:? Time Frame for joint terminal attack controller goals : 6 weeks? senior living goal 1: Pt will improve WOOD RRF = 200?? See below?? []Met [x]Partially met []Not met?? senior living goal 2: Pt will improve WOOD RSF = 240?? Cont; last measurement was 220+ []Met [x]Partially met []Not met?? senior living goal 3: Pt will decrease edema over PIP RRF = 5.2 cm?? cont?? []Met [x]Partially met []Not met?? joint terminal attack controller goal 4: Pt will report increased functional use of hand with IADLs?? 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 States that she holds ring finger out when eating, writing []Met [x]Partially met []Not met?? Time Frame for Short term goals: 4 weeks? Short term goal 1: Pt will improved WOOD RRF = 100?? met?? [x]Met []Partially met []Not met?? Short term goal 2: Pt will increase WOOD RSF = 175?? met?? [x]Met []Partially met []Not met?? Short term goal 3: Pt will be I with HEP?? met?? [x]Met []Partially met []Not met?? ADDITIONAL COMMENTS? HAND?? Right ring?? Left ring?? MP?? 0-92 0-89?? PIP?? 20-71?? 0-104?? DIP?? 8-20 0-92?? WOOD?? 155 285?? OT Comments: Pt is making progress toward goals, having increased her WOOD to 155 degrees. She missed her last MD F/U appt and is encouraged to reschedule appt. Will continue to see patient for an additional 2x week x 4-6 weeks (03/18/2016- 04/29/2016). Pt has had difficulty making all appts because shedoesnt have a valid drivers license. Encouragement provided for adherence to HEP as well. MD Comments: Rehab Potential [x] Excellent [x] Good [] Fair [] Poor Regulatory Requirements I have reviewed this plan of care and certify a need for medically necessary rehabilitation services. Physician Signature: Date: Please sign and fax to [phone] documented in this encounter Plan of Treatment Upcoming Encounters Date Type Department Care Team (Late st Contact Info) Description 05/17/2025 4:00 PM EDT Routine [facility] Business Analysis Specialist [address] [phone] Emma Nava DO [address] [place], [place] [phone] complete transfer of care from Dr. Serrato 06/07/2025 4:00 PM EDT Routine [facility] Business Analysis Specialist [address] [phone] [address] [phone] [place] [address] [place] [phone] ABEL 06/14/2025 4:00 PM EDT Routine [facility] Business Analysis Specialist [id number] [phone] Jessika Parrish DO [address] [place] [address] ABEL 06/21/2025 4:00 PM EDT Routine [facility] Business Analysis Specialist [place] [address] [place] [phone] FrancoisJessika [address] [place], [place] [phone] ABEL 06/28/2025 4:00 PM EDT Routine [facility] Business Analysis Specialist [address] [id number] [phone] Francois JessikaDO [address] [place], [place] [address]tr[place], [place] [phone] ABEL documented as of this encounter Visit Diagnoses Not on filedocumented in this encounter Care Teams Fashion Merchandiser Relationship Specialty Start Date End Date Oliver Lozano MD PCP - General 01/23/16 documented as of this encounter
--- OUTSIDE RECORDS SUMMARY | 2016-04-08 13:00 | XMS_ITS | Encounter Summary ---
Author Organization [facility] Address [address], [address] [place] [address] Care Team Providers Care Bellows Tester Name Role Phone Oliver Lozano MD Primary Care Provider Encounter Details Date Type Department Care Team (Late st Contact Info) Description 04/08/2016 1:00 PM EDT Hospital Encounter [facility] Occupational Therapy [address] [phone] Jane Cruz MD [address] [place] [address] Makayla Chan OT Social History Tobacco Use [...] place to sleep or slept in a group home (including now)? No 08/18/2023 Food Insecurity [...] Chan OT - 04/08/2016 1:11 PM EDT [facility] Outpatient Occupational Therapy DAILY TREATMENT NOTE Date: 04/08/2016 Patient???s Name: Edgar Gifford Date of : 1995 (20 y.o.) Gender: female Diagnosis: RRF fracture dislocation S62.604S Referring Provider: Jane Cruz MD INSURANCE OT Insurance Information: [facility] Total # of Visits Approved: 30 Total [...] red?? 3 min flexion stretch; 4 min ventilation mechanic? GPB?? 25? joint blocking? Modality Flow Sheet: START STOP Tx Modality Electrical Stim: Ultrasound: ___ W/cm2 x ___ mins Duty factor: __100% __50% __20% __10% Head size: MHz: __1mHz __2 mHz __3mHz Location: 10 min right hand for pain and stiffness Hot Pack: 10 min right hand for pain and stiffness Paraffin: Cold Pack: GOALS/ TREATMENT SESSION: Subjective report: Time Frame for terminal operator goals : 6 weeks terminal operator goal 1: Pt will improve WOOD RRF = 200 Part met; see below []Met [x]Partially met []Not met penitentiary goal 2: Pt will improve WOOD RSF = 240 met [x]Met []Partially met []Not met terminal operator goal 3: Pt will decrease edema over PIP RRF = 5.2 cm Met; see below [x]Met []Partially met []Not met terminal operator goal 4: Pt will report increased [...] 1:56 49 Electronically signed by KIRTI Person, OTR/L 04/08/2016 1:12 PM documented in this encounter Plan of Treatment Upcoming Encounters Date Type Department Care Team (Late st Contact Info) Description 05/17/2025 4:00 PM EDT Routine [facility] Rubber Grinder [place] [address] [phone] Emma Nava DO [address] [place], [place] [phone] complete transfer of care from Dr. Serrato 06/07/2025 4:00 PM EDT Routine [facility] Rubber Grinder [place] [address] [place] [address] FrancoisJessika, DO [address] [place] [address] ABEL 06/14/2025 4:00 PM EDT Routine [facility] Rubber Grinder [place] [address] [place], [place] [address], [place] [address] Francois Jessika, DO [address] [place] [address] ABEL 06/21/2025 4:00 PM EDT Routine [facility] Rubber Grinder [place] [address] [place], [place] [address], [place] [address] Francois Jessika DO [address] [place] [address] ABEL 06/28/2025 4:00 PM EDT Routine [facility] Rubber Grinder [place] [address] [place] [address], [place] [address] Francois Jessika DO [address] [place] [address] ABEL documented as of this encounter Visit Diagnoses Not on filedocumented in this encounter Care Teams Bellows Tester Relationship Specialty Start Date End Date Oliver Lozano MD PCP - General 01/23/16 documented as of this encounter
--- OUTSIDE RECORDS SUMMARY | 2016-04-10 14:30 | XMS_ITS | Encounter Summary ---
Author Organization [facility] Address [address] [facility] [place] [address] Care Team Providers Care Business Director Name Role Phone Oliver Lozano MD Primary Care Provider [phone] Encounter Details Date Type Department Care Team (Late st Contact Info) Description 04/10/2016 2:30 PM EDT Hospital Encounter [facility] Occupational Therapy [address] [phone] Jane Cruz MD [address] [place] [address] Makayla Chan OT Social History Tobacco Use [...] place to sleep or slept in a jail (including now)? No 08/18/2023 Food Insecurity Answer [...] EST Occupational Therapy Hand & Upper Extremity [facility] Occupational Therapy Discharge Note Date: 08/22/2016 Patient: Edgar Gifford : 1995 Physician: Jane Cruz MD Insurance: [facility] Diagnosis:RRF fracture dislocation S62.604S Onset Date: 11/18/15 Next Appt: uncertain Total visits attended:11 Cancels/No shows: 7 Date of initial visit: 01/22/2016 Date of final visit: 04/08/2016 Subjective: Pain: [x] Yes [] No Location: RRF PIP joint Pain Rating: (0-10 scale) 6/10 with movement/during exercises Pain altered Tx: [] No [] Yes Action: Comments: Objective: Subjective report: ? Time Frame for longterm goals : 6 weeks ? longterm goal 1: Pt will improve WOOD RRF = 200 Part met; see below []Met [x]Partially met []Not met mergers and acquisitions associate goal 2: Pt will improve WOOD RSF = 240 met ?? [x]Met []Partially met []Not met mergers and acquisitions associate goal 3: Pt will decrease edema over PIP RRF = 5.2 cm Met; see below [x]Met []Partially met []Not met mergers and acquisitions associate goal 4: Pt will report increased functional [...] Chan OT - 04/10/2016 4:35 PM EDT [facility] Rehabilitation Date: 04/10/2016 Patient Name: Edgar Gifford [...] Info) Description 05/17/2025 4:00 PM EDT Routine [facility] Relay Checker [place] [address] [phone] Emma Nava DO [address] [place] [address] complete transfer of care from Dr. Serrato 06/07/2025 4:00 PM EDT Routine [facility] Relay Checker [place] [address] [phone] Jessika Parrish DO [address] [place] [address] ABEL 06/14/2025 4:00 PM EDT Routine [facility] Relay Checker [place] [address] [place] [address], [place] [address] Francois Jessika, DO [address] [place] [address] ABEL 06/21/2025 4:00 PM EDT Routine [facility]ay Checker [place] [address] [facility] [address] [place] [address], [place] [address] Francois Jessika, DO [address] [facility] [address] ABEL 06/28/2025 4:00 PM EDT Routine [facility] Relay Checker [address] [address] [phone] Francois Jessika, [address] [facility] [place] [address] ABEL documented as of this encounter Visit Diagnoses Not on filedocumented in this encounter Care Teams Business Director Relationship Specialty Start Date End Date Oliver Lozano MD PCP - General 01/23/16 documented as of this encounter
--- OUTSIDE RECORDS SUMMARY | 2024-06-22 08:30 | XMS_ITS ---
Author Organization The [facility] in [place] Address [address] [place] [address] Care Team Providers Care Spindle Plumber Name Role Phone Blake LOYOLA, Oliver Primary Care Provider Reba Chicas Unavailable [phone] REASON FOR VISIT New PT Hem Encounters Encounter Location Date Provider Diagnosis [facility] [address] [place] [phone] 06/22/2024 Reba Tovar Plan Of Treatment No Information Progress Notes * Edgar GIFFORD MDOB: [birth year] (29 yo F)Acc No.[id number]:06/22/2024 UNLOCKED PROGRESS NOTE Progress Notes Patient: Edgar COLE Provider: Bienvenido Tovar M.D. :1995 A ge:28 Y S ex:Female Date:06/22/2024 Address:[address] [place], [place] [phone] Pcp:Oliver Lozano MD Subjective: * Chief Complaints: * 1 . New PT Hem. * Medical History: Objective: * Vitals: Assessment: Plan: * Treatment: * * Electronic signature of Anand Tovar MD, [id number] on 05/10/2025 at 07:42 AM EDT Sign off status: Pending Visit Status: C ONFPHONE (Voice) * Provider: Bienvenido Tovar M.D. Date: 06/22/2024 Generated for Printi ng/Faxing/eTransmitting on: 0 05/10/2025 07:42 AM EDT
--- OUTSIDE RECORDS SUMMARY | 2024-07-06 10:30 | XMS_ITS ---
Author Organization The [facility] in [place] Address [address] [place] [address] Care Team Providers Care Hot Dipper Name Role Phone Blake LOYOLA, Oliver Primary Care Provider Reba Chicas Unavailable [phone] REASON FOR VISIT MD TELEHEALTH Encounters Encounter Location Date Provider Diagnosis [facility] On[facility] [address] [place] [phone] 07/06/2024 Reba Tovar Plan Of Treatment No Information Progress Notes * Edgar GIFFORD MDOB: [birth year] (29 yo F)Acc No.[id number]:07/06/2024 UNLOCKED PROGRESS NOTE Progress Notes Patient: Edgar COLE Provider: Bienvenido Tovar M.D. :1995 A ge:28 Y S ex:Female Date:07/06/2024 Address:[address] [place], [place] [phone] Pcp:Oliver Lozano MD Subjective: * Chief Complaints: * 1 . MD TELEHEALTH. * Medical History: Objective: * Vitals: Assessment: Plan: * Treatment: * * Electronic signature of Anand Tovar MD, [id number] on 05/10/2025 at 07:42 AM EDT Sign off status: Pending Visit Status: C ANC (Cancelled) * Provider: Bienvenido Tovar M.D. Date: 0 07/06/2024 Generated for Printi ng/Fatequilag/eTransmitting on: 0 05/10/2025 07:42 AM EDT
--- OUTSIDE RECORDS SUMMARY | 2025-02-08 09:51 | XMS_ITS | Continuity of Care Document ---
Author Organization [facility] Address [address] [place] [phone] Phone Care Team Providers Care House Father Name Role Phone Geena Sewell DDS Unavailable Unavailable Allergies, Adverse Reactions, Alerts Substance Reaction Status Criticality ibuprofen Active No Information Medications Medication Instructions Dosage Effective Dates (start - stop) Status Comments PrimaCare 30 mg-1 mg-300 mg capsule - Active Procedures Procedure Date Bitewig-single Film Intraoral-periapical 1st Film Limited Oral Eval Oral Hygiene Instruction Advance Directives Directive Yes / No Effective Date File Name No Information Encounters Encounter Description Practice Location Reason(s) For Visit Diagnoses Date Provider Providers Copied on Encounter [facility], [address] [place] [address], [id number], tel:[phone] Dental Clinic dental er (chief complaint) No Information Donato JAYS Geena. . tel:[phone] [facility], [address] [place] [address], [id number], tel:[phone] Dental Clinic Encounter for screening for dental disorders Donato JAYS Geena. . tel:[phone] Family History Family Member Type Diagnosis Age At Onset No Information Payers Payer name Insurance type Covered alliance party ID Authoriza tion(s) No Information Social History Type Description Quantity Date Captured Comments Alcohol Use Details Unknown Caffeine Use Details Unknown Tobacco Use Status No Information Smoking Status No Information Sex Female Vital Signs Date / Time: Height Weight BMI Pulse Rate Blood Pressure Temperature Respiratory Rate Body Surface Area Head Circumference Head Circ. Percentile Wt./Cristo. Percentile BMI percentile Pulse Ox Inhaled Ox 2:03 PM 62.00 in 86.636 kg (191.00 lbs) 34.9 3 kg/m eter (2) 60 /min 120/88 mm[Hg] 98.21 F 1.95 meter(2) Chief Complaint And Reason For Visit From encounter dated '02/08/2025 13:51'. dental er (chief complaint). Description: dental er Reason For Referral Reason For Referral No Information Plan Of Treatment Date Type Action Status Goal Hepatitis C screening. Due o n due Goal Tdap Vaccine. Due on 2024 due Goal Depression screening. Due on due Goal Influenza vaccine. Due on Ap due Goal RLP. Due on due Goal Unhealthy drug use screening . Due on due Goal HPV. Due on due Goal Tdap. Due on due Goal PRAPARE ASSESSMENT. Due on A due History Of Present Illness Encounter Date Complaint History Of Prese nt Illness dental er dental er Functional Status Date Functional Assessmen t No Information Instructions Date Instruction Additional Infor mation No Information Assessments Type Assessment Date No Information Patient Care Teams Name Effective Dates (start - stop) Status Members No Information
--- OUTSIDE RECORDS SUMMARY | 2025-05-02 14:00 | XMS_ITS | Encounter Summary ---
Author Organization [facility] Address [address] [place] [address] Care Team Providers Care Cnc Milling Machinist Name Role Phone Oliver Lozano MD Primary Care Provider [phone] Reason for Visit * Reason Comments Follow-up Encounter Details Date Type Department Care Team (Latest Contact Info) Description 05/02/2025 2:00 PM EDT Office Visit [facility] [address] [place] [address] Blayne Smalls MD [address] [place] [address] Aortic regurgitation due to bicuspid [...] MD [address] [facility] [address] May 02, 2025 Patient: Edgar Gifford Date [...] 2025 and she will be delivering at [facility]. 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 Improving her hydration [...] normal biventricular systolic function. Normal PFO with qhbzq-uq-bimm shunt and ductus arteriosus seen with dqqqm-bi-ulno shunting. There is no evidence of aortic [...] to call me, Sincerely, Blayne Smalls MD, [facility] Professor of Pediatric [employer] [facility] Chief, Pediatric Cardiology This note is dictated [...] Description 10/20/2025 11:00 AM EST Office Visit [facility] [address] [place] [address] Blayne Smalls MD [address] [place] [address] Pending Results Name Type Priority Associated Diagnoses [...] of documented in this encounter Care Teams Cnc Milling Machinist Relationship Specialty Start Date End Date Oliver Lozano MD [address] [facility] [address] [place] [address] PCP - General Internal Medicine 12/27/24 documented as of this encounter
--- NOTE | 2025-05-10 | US_ITS ---
[address] [address] Patient Name: MARGARET ORTIZ MRN: [id number] date: 1995 Sex: F Assigned Patient Location: [facility] Current Patient Location: [facility] Accession/Order Number: [id number] Exam Date: 05/10/2025 15:37 Report Date: 05/10/2025 15:42 At the request of: CRESENCIO RAPP Procedure: US OB BPP w non-stress Biophysical profile. Reason for exam: Von Willebrand disease COMPARISON: 05/03/2025 TECHNIQUE: Transabdominal imaging of the gravid uterus was obtained. FINDINGS: The primer inspector reports a BPP of 8 out of 8. ISABELL is normal at 13.7 cm. heart rate 142 bpm. US/US OB BPP w non-stress IMPRESSION: BPP 8 out of 8. Impression dictated by: Parrish Wise Jr., D.O. 05/10/2025 3:42 PM Dictation Location: [place] [address] Electronically authenticated by: [id number] Y Date: 05/10/2025 15:42
--- OUTSIDE RECORDS SUMMARY | 2025-05-10 13:50 | XMS_ITS | Encounter Summary ---
Author Organization [facility] Address [address] [place] [address] Care Team Providers Care Hot Mill Tin Roller Name Role Phone Unallocated, Noms Provider Primary Care Provi zoltan Reason for Visit * Reason Comments Routine Visit Encounter Details Date Type Department Care Team (Late st Contact Info) Description 05/10/2025 1:50 PM EDT Routine YANIQUE [place] OBGYN [address] [place] [phone] Leyla Matt PA [address] [place], [place] [address] Third trimester ([facility]); 31 weeks gestation of ([facility]); Cold sore Social History Tobacco Use [...] valve stenosis 01/06/2025 14 weeks gestation of ([facility]) 01/06/2025 Second trimester ([facility]) 01/06/2025 Von Willebrand disease (HCC) 01/06/2025 [...] ASSESSMENT & PLAN ICD-10-CM 1. Third trimester ([facility]) Z34.93 CANCELED: POCT urinalysis dipstick manually resulted 2. 31 weeks gestation of ([facility]) Z3A.31 Return OB: Patient presents today [...] Care Team (Late st Contact Info) Description 05/24/2025 1:20 PM EDT Routine REKHAS Jaqueline OBGYN [address] [place] [address] Jung Serrato DO [address] [place], [place] [id number] documented as of this encounter Visit Diagnoses Diagnosis Third trimester ([facility]) state, incidental 31 weeks gestation of ([facility]) Cold sore Herpes simplex without mention of complication documented in this encounter Care Teams Hot Mill Tin Roller Relationship Specialty Start Date End Date Unallocated, Noms Provider, [place] [address] PCP - General Family Medicine 03/17/25 documented as of this encounter
--- OUTSIDE RECORDS SUMMARY | 2025-05-10 14:42 | XMS_ITS | Encounter Summary ---
Author Organization [facility] Address [address] [place] [address] Care Team Providers Care Machine Whitener Name Role Phone Oliver Lozano MD Primary Care Provider [phone] Unallocated, Noms Provider Primary Care Provi zoltan Encounter Details Date Type Department Care Team (Late st Contact Info) Description 02/18/2025 Orders Only YANIQUE DRAPER [address] [place] [address] Apple Ambrocio MA Social History Tobacco [...] Info) Description 05/24/2025 1:20 PM EDT Routine NOMMelody DRAPER [address] [place] [address] Jung Serrato DO [address] [place], [place] [phone] documented as of this encounter Procedures Procedure Name Priority Date/Time Associated Diagnosis Comments PAP SMEAR Routine 02/09/2025 12:00 AM EDT documented in this encounter Results * Pap Smear (02/09/2025 12:00 AM EDT) Swab Cervical swab / Unknown Aga Shore MACHINE CLOTHING [facility] LAB CYTOLOGY ORDERABLES Final Result EXTERNAL LAB documented in this encounter Visit Diagnoses Not on filedocumented in this encounter Care Teams Machine Whitener Relationship Specialty Start Date End Date Oliver Lozano MD [address] [place] [address] PCP - General Internal Medicine 02/18/23 03/16/25 Unallocated, Noms Provider, [facility] [place] [address] PCP - General Family Medicine 03/17/25 documented as of this encounter
--- OUTSIDE RECORDS SUMMARY | 2025-05-10 14:42 | XMS_ITS | Encounter Summary ---
Author Organization [facility] Address [address] [place] [address] Care Team Providers Care Fluid Jet Cutter Operator Name Role Phone Oliver Lozano MD Primary Care Provider [phone] Unallocated, Noms Provider Primary Care Provi zoltan Encounter Details Date Type Department Care Team (Late st Contact Info) Description 03/14/2025 Abstract YANIQUE DRAPER [facility] [place] [phone] Jung Serrato DO [address] [place], [place] [address] Social History Tobacco Use Types Packs/Day Years [...] Info) Description 05/24/2025 1:20 PM EDT Routine YANIQUE DRAPER [facility] [place] [phone] Jung Serrato, DO [address] [place], [place] [phone] documented as of this encounter Visit Diagnoses Not on filedocumented in this encounter Care Teams Fluid Jet Cutter Operator Relationship Specialty Start Date End Date Oliver Lozano MD [address] [place] [address] PCP - General Internal Medicine 02/18/23 03/16/25 Unallocated, Noms Provider, [address] [place] [address] PCP - General Family Medicine 03/17/25 documented as of this encounter
--- OUTSIDE RECORDS SUMMARY | 2025-05-10 14:42 | XMS_ITS | Encounter Summary ---
Author Organization [facility] Address [address] [place] [address] Care Team Providers Care Web Sizer Name Role Phone Oliver Lozano MD Primary Care Provider [phone] Unallocated, Noms Provider Primary Care Provi zoltan Encounter Details Date Type Department Care Team (Late st Contact Info) Description 02/18/2025 Abstract YANIQUE DRAPER [facility] [employer] [place] [phone] Jung Serrato DO [address] [place], [place] [address] Social History Tobacco Use Types Packs/Day Years [...] 05/24/2025 1:20 PM EDT Routine YANIQUE DRAPER [facility] [place] [phone] Jung Serrato, DO [address] [place], [place] [phone] documented as of this encounter Visit Diagnoses Not on filedocumented in this encounter Care Teams Web Sizer Relationship Specialty Start Date End Date Oliver Lozano MD [address] [place] [address] PCP - General Internal Medicine 02/18/23 03/16/25 Unallocated, Noms Provider, [address] [place] [address] PCP - General Family Medicine 03/17/25 documented as of this encounter
--- OUTSIDE RECORDS SUMMARY | 2025-05-10 14:42 | XMS_ITS | Encounter Summary ---
Author Organization [facility] Address [address] [facility] [place] [address] Care Team Providers Care Athletic Monitor Name Role Phone Unallocated, Noms Provider Primary Care Provi zoltan Encounter Details Date Type Department Care Team (Late st Contact Info) Description 04/22/2025 Telephone [facility] Jaqueline DRAPER [address] [place] [address] [place] [phone] Sanjana Monaco LPN Social History Tobacco Use [...] and would like to have referral to [facility] in [place] to delivery at [facility]. Called patient and informed her that since she was seeing [facility] that is where the referral was sentfor complete transfer of care. PVU and stated that she would prefer to deliver at [facility]. PVU and new referral was sent. Sanjana Bazan LPN 04/25/25 Called patient and LMOM that [facility] does not accept her insurance and that she will want to reach back out to [facility] to setup referral for complete transfer of care for remainder of and delivery. --ss documented in this encounter Plan of Treatment Upcoming Encounters Date Type Department Care Team (Late st Contact Info) Description 05/24/2025 1:20 PM EDT Routine YANIQUE [place] OBGYN [address] [place] [address] Jung Serrato DO [address] [place] [address] documented as of this encounter Visit Diagnoses Not on filedocumented in this encounter Care Teams Athletic Monitor Relationship Specialty Start Date End Date Unallocated, Yanique Louis MD [address] [place] [address] PCP - General Family Medicine 03/17/25 documented as of this encounter
--- OUTSIDE RECORDS SUMMARY | 2025-05-10 14:42 | XMS_ITS | Encounter Summary ---
Author Organization [facility] Address [address] [facility] [place] [address] Care Team Providers Care Interlocking Machine Operator Name Role Phone Unallocated, Noms Provider Primary [...] Info) Description 05/24/2025 1:20 PM EDT Routine [facility] Jaqueline OBGYN [address] [place] [phone] Jung Serrato DO [address] [place], [facility] documented as of this encounter Procedures Procedure Name Priority Date/Time Associated Diagnosis Comments US OB BPP W NON-STRESS 05/03/2025 4:24 PM EDT documented in this encounter Results * US OB BPP W NON-STRESS (05/03/2025 4:24 PM EDT) Anatomical Region Laterality Modality Other 05/03/2025 4:24 PM EDT Narrative 05/03/2025 4:26 PM EDT [address] [address] Ultrasound Report Signed Patient: MARGARET GIFFORD MR#: [id number] : 1995 Acct:[id number] Age/Sex: 29 / F ADM Date: 05/03/25 Loc: [facility] 250-[address]: Leyla Rapp Ordering Physician: Leyla Rapp Date of Service: 05/03/25 Procedure(s): US OB BPP w non-stress Accession Number(s): [id number] cc: Leyla Rapp; JOI LEWIS [place] [address] Patient Name: MARGARET GIFFORD MRN: [id number] date: 1995 Sex: F Assigned Patient Location: [facility] Current Patient Location: [facility] Accession/Order Number: [id number] Exam Date: 05/03/2025 16:23 Report Date: 05/03/2025 16:24 At the request of: LEYLA RAPP Procedure: US OB BPP w non-stress Biophysical profile. Reason for exam: Von Willebrand's disease COMPARISON: None TECHNIQUE: Transabdominal imaging of the gravid uterus was obtained. FINDINGS: The vascular physician reports a BPP of 8 out of 8. ISABELL is normal at 17.4 cm. heart rate 131 bpm. US/US OB BPP w non-stress IMPRESSION: BPP 8 out of 8. Impression dictated by: Parrish Wise Jr., D.O. 05/03/2025 4:24 PM Dictation Location: [place] [address] Electronically authenticated by: [id number] Y Date: 05/03/2025 16:24 Dictated By: Parrish Wise M.D. Signed By: 05/03/25 1626 DD/ 23 TD/TT: Game Programer: Procedure Note Radiology, Radiologist, MD - 05/03/[address] [address] Ultrasound Report Signed Patient: MARGARET GIFFORD MMR#: [id number] : 1995Acct:[id number] Age/Sex: 29 / FADM Date: 05/03/25 Loc: [facility] 250-[address]: Leyla Rapp Ordering Physician: Leyla Rapp Date of Service: 05/03/25 Procedure(s): US OB BPP w non-stress Accession Number(s): [id number] cc: Leyla Rapp; JOI LEWIS [place] [address] Patient Name: MARGARET GIFFORD MRN: [id number] date: 1995 Sex: F Assigned Patient Location: [facility] Current Patient Location: [facility] Accession/Order Number: [id number] Exam Date: 05/03/2025 16:23 Report Date: 05/03/2025 16:24 At the request of: LEYLA RAPP Procedure: US OB BPP w non-stress Biophysical profile. Reason for exam: Von Willebrand's disease COMPARISON: None TECHNIQUE: Transabdominal imaging of the gravid uterus was obtained. FINDINGS: The vascular physician reports a BPP of 8 out of 8. ISABELL is normal at17.4 cm. heart rate 131 bpm. US/US OB BPP w non-stress IMPRESSION: BPP 8 out of 8. Impression dictated by: Parrish Wise Jr., D.O. 05/03/2025 4:24 PM Dictation Location: [place] [address] Electronically authenticated by: [id number] Y Date: 6:24 Dictated By: Parrish Wise M.D. Signed By:05/03/251625 DD/ 23 TD/TT: Game Programer: us Generic External Data Provider [facility] Final Result documented in this encounter Visit Diagnoses Not on filedocumented in this encounter Care Teams Interlocking Machine Operator Relationship Specialty Start Date End Date Unallocated, Noms Provider, [address] [place] [address] PCP - General Family Medicine 03/17/25 documented as of this encounter
--- OUTSIDE RECORDS SUMMARY | 2025-05-10 14:42 | XMS_ITS | Encounter Summary ---
Author Organization [facility] Address [address] [place] [address] Care Team Providers Care Production Line Assembler Name Role Phone Unallocated, Noms Provider Primary Care Provi zoltan Encounter Details Date Type Department Care Team (Late st Contact Info) Description 04/25/2025 Orders Only [facility] [place] Internal Medicine [address] [place] [phone] Unallocated, Noms Provider, [place] [address] Social History Tobacco Use Types Packs/Day Years [...] Description 05/24/2025 1:20 PM EDT Routine NOMMelody [place] OBGYN [address] [place] [address] Jung Serrato DO [address] [place] [address] documented as of this encounter Procedures Procedure [...] filedocumented in this encounter Care Teams Production Line Assembler Relationship Specialty Start Date End Date Unallocated, Noms Provider, [facility] [place] [address] PCP - General Family Medicine 03/17/25 documented as of this encounter
--- OUTSIDE RECORDS SUMMARY | 2025-05-10 14:43 | XMS_ITS | Encounter Summary ---
Author Organization [facility] Address [address] [place] [address] Care Team Providers Care Electronic Typesetting Machine Operator Name Role Phone Oliver Lozano MD Primary Care Provider [phone] Unallocated, Noms Provider Primary Care Provi zoltan Encounter Details Date Type Department Care Team (Late Contact Info) Description 05/31/2024 Abstract YANIQUE DRAPER [address] [place] [phone] Jung Serrato DO [address] [place], [place] [address] Social History Tobacco Use Types Packs/Day Years [...] 05/24/2025 1:20 PM EDT Routine YANIQUE DRAPER [address] [place] [phone] Jung Serrato DO [address] [place], [place] [address] documented as of this encounter Visit Diagnoses Not on filedocumented in this encounter Care Teams Electronic Typesetting Machine Operator Relationship Specialty Start Date End Date Oliver Lozano MD [address] [place] [address] PCP - General Internal Medicine 02/18/23 03/16/25 Unallocated, Noms Provider, [address] [place] [address] PCP - General Family Medicine 03/17/25 documented as of this encounter
--- OUTSIDE RECORDS SUMMARY | 2025-05-10 14:43 | XMS_ITS | Patient Health Record ---
Author Organization [facility] [place] Address [address] [place] [address] Care Team Providers Care Percussion Tuner Name Role Phone Oliver Lozano MD Primary Care Provider Reba Chicas Unavailable [phone] Reason For Referral No Information Encounters Encounter Location Date Provider Diagnosis [facility] [address] [place] [address] 06/22/2024 Reba Tovar Plan Of Treatment No Information
--- OUTSIDE RECORDS SUMMARY | 2025-05-10 14:43 | XMS_ITS | Clinical Summary ---
Author Organization [facility] Address [address], [address] [place] [address] Care Team Providers Care Role Player Name Role Phone Oliver Lozano MD Primary Care Provider [phone] Allergies Active Allergy Reactions Criticality Noted Date Comments Ibuprofen Medium 09/16/2015 Bruising t/o the body Nsaids 05/11/2024 Other Reaction(s): Unknown Medications oxymetazoline (12 HOUR NASAL SPRAY) 0.05 % nasal spray Use daily as directed for 3 days 1 Bottle 08/11/20 20 Active Additional Information Patient not taking.Reported on 02/17/2025 ondansetron (ZOFRAN-ODT) 4 MG disintegrating tablet Active VIT-FE FUMARATE-FA PO Take 1 tablet by mouth daily Active Active Problems Problem Noted Date Diagnosed Date Primigravida in second trimester 02/17/2025 20 weeks gestation of 02/17/2025 Hypertension 05/26/2013 Bicuspid aortic valve 07/08/2012 Aortic valve stenosis 07/08/2012 Aortic regurgitation 07/08/2012 Von Willebrand disease Menorrhagia Estimated Date of Delivery Comme nts Yes 07/06/2025 Based on last me nstrual period of 09/29/2024 (Exact Date) Encounters Date Type Department Care Team Description 04/22[facility]2025 [facility] [place] [facility] [address] [phone] Lalitha Kerr, DO Care Transitions 03/22/2025 10:31 AM EDT - 03/22/2025 11:59 PM EDT Hospital Encounter [address] [address] Discharge Disposition: Home or Self Care 03/19/2025 11:21 AM EDT - 03/19/2025 11:59 PM EDT Hospital Encounter [address] [address] Discharge Disposition: Home or Self Care 02/24/2025 10:25 PM EDT - 02/25/2025 12:27 AM EDT Emergency [facility] Emergency Department [address] [place] [phone] Fior Villatoro, Headache in , antepartum, second trimester (Primary Dx) Discharge Disposition: Home or Self Care 02/24/2025 Travel 02/17/2025 2:00 PM EDT Routine [facility] [address] [place] [phone] Luther George MD Primigravida in second trimester (Primary Dx); 20 weeks gestation of ; Bicuspid aortic valve; Nonrheumatic aortic valve stenosis; Von Willebrand disease (HCC) 02/17/2025 Abstract [facility] [address] [place] [phone] Luther George MD from Last 3 Months Family History Medical History Relation Name Comments Breast Cancer Maternal Grandmother Kaylie Cervical Cancer Maternal Grandmother Kaylie Liver Cancer Maternal Grandmother Kaylie Ovarian Cancer Paternal Grandmother Kaylie Stomach Cancer Paternal Grandmother Kaylie Relation Name Status Comments Maternal Grandmother Kaylie Paternal Grandmother Kaylie Social History Tobacco Use Types Packs/Day Years Used Date Smoking Tobacco: Never Smokeless Tobacco: Never Tobacco Cessation:Counseling Given: No Alcohol Use Standard Drinks/Week Comments Not Currently [...] Sign Reading Time Taken Comments Blood Pressure 134/90 02/24/2025 10:25 PM EDT Pulse 79 02/24/2025 10:25 PM EDT Temperature 36.6 C (97.9 F) 02/24/2025 10:25 PM EDT Respiratory Rate 17 02/24/2025 10:25 PM EDT Oxygen Saturation 99% 02/24/2025 10:25 PM EDT Inhaled Oxygen Concentration - - Weight 89.8 kg (198 lb) 02/24/2025 10:25 PM EDT Height 157.5 cm (5' 2 ) 02/17/2025 2:09 PM EDT Body Mass Index 36.21 02/17/2025 2:09 PM EDT Plan of Treatment Upcoming Encounters Date Type Department Care Team (Late st Contact Info) Description 05/17/2025 4:00 PM EDT Routine [facility] [employer] [place] [address] [phone] Emma Nava DO [address] [place] [address] complete transfer of care from Dr. Serrato 06/07/2025 4:00 PM EDT Routine [facility] [employer] [place] [address] [phone] Jessika Parrish DO [address] [place] [address] ABEL 06/14/2025 4:00 PM EDT Routine [facility] [employer] [place] [address] [phone] Jessika Parrish DO [address] [place] [address] ABEL 06/21/2025 4:00 PM EDT Routine [facility] [employer] [place] [address] [facility] [address] [place] [address], [place] [phone] Jessika Parrish DO [address] [place] [address] ABEL 06/28/2025 4:00 PM EDT Routine [facility] [employer] [place] [address] [facility] [address] [place] [phone] FrancoisJessika Clay[address] [place] [address] ABEL Health Maintenance Due Date Last Done Comments Varicella vaccine (1 of 2 - 13+ 2-dose series) 2007 Pap smear 2015 DTaP/Tdap/Td vaccine (7 - Td or Tdap) 04/28/2017 04/28/2007, 05/04/1999, 04/05/1996, Additional history exists COVID-19 Vaccine (2023- season) 2024 Cervical cancer screen 2024 HPV (without or with Pap) 2024 Depression Screen 02/07/2025 02/08/2024 Tdap Vaccine during 04/06/2025 Flu vaccine (#1) 05/13/2025 06/10/2012, 08/14/2009 Respiratory Syncytial Virus (RSV) or age 60 yrs+ (1 - Risk 1-dose series) 06/13/2025 Hepatitis B vaccine Completed 05/13/1995, 01/13/1995, 1994 Hib vaccine Completed 04/05/1996, 10/1994, 03/18/1995, Additional history exists Polio vaccine Completed 05/04/1999, 10/1994, 03/18/1995, Additional history exists HPV vaccine Completed 08/21/2007, 04/12, 02/16/2007 Hepatitis A vaccine Completed 03/23/2010, 9 Meningococcal (ACWY) vaccine Completed 06/10/2012, 04/28/2007 HIV screen Completed 2023, 10/13, 10/22/2012 Hepatitis C screen Completed 2023, 0 10/31/2015, 10/22/2012 Meningococcal B vaccine Aged Out No l onger eligible based on patient's age to complete this topic Pneumococcal 0-49 years Vaccine Aged Out No longer eligible based on patient's age to complete this topic Procedures Procedure Name Priority Date/Time Associated Diagnosis Comments GLUCOSE CHALLENGE GESTATIONAL Routine 03/22/2025 10:33 AM EDT CBC Routine 03/22/2025 10:33 AM EDT MAGNESIUM STAT 02/24/2025 11:15 PM EDT COMPREHENSIVE METABOLIC PANEL W/ REFLEX TO MG FOR LOW K STAT 02/24/2025 11:15 PM EDT CBC WITH AUTO DIFFERENTIAL STAT 02/24/2025 11:15 PM EDT MICROSCOPIC URINALYSIS Routine 11:10 PM EDT URINALYSIS WITH REFLEX TO CULTURE STAT 02/24/2025 11:10 PM EDT PROTEIN / CREATININE RATIO, URINE STAT 02/24/2025 11:10 PM EDT US OB DETAIL ANATOMY SINGLE OR FIRST GESTATION Routine 02/17/2025 Primigravida in second trimester 20 weeks gestation of Bicuspid aortic valve Nonrheumatic aortic valve stenosis Von Willebrand disease (HCC) HIV SCREEN Routine 2023 3:30 PM EST Routine screening for STI (sexually transmitted infection) HEPATITIS C ANTIBODY Routine 2023 3:30 PM EST Routine screening for STI (sexually transmitted infection) from Last 3 Months or Most Recently Relevant to Health Maintenance Results * Glucose Challenge Gestational (03/22/2025 10:33 AM EDT) GLU ADMN Glucola 03/22/2025 10:33 AM EDT [facility] Glucose tolerance screen 50g 119 70 - 135 mg/dL 03/22/2025 10:33 AM EDT [facility] 03/22/2025 10:3 3 AM EDT 03/22/2025 10:34 AM EDT us Jung Serrato MD HEMATOLOGY ORDERABLES Fin al Result [facility] [address] [phone] * (ABNORMAL) CBC (03/22/2025 10:33 AM EDT) WBC 9.8 3.5 - 11.3 k/uL 03/22/2025 10:33 AM EDT [facility] RBC 4.16 3.95 - 5.11 m/uL 03/22/2025 10:33 AM EDT [facility] Hemoglobin 11.7(L) 11.9 - 15.1 g/dL 03/22/2025 10:33 AM EDT [facility] Hematocrit 35.1(L) 36.3 - 47.1 % 03/22/2025 10:33 AM EDT [facility] MCV 84.4 82.6 - 102.9 fL 03/22/2025 10:33 AM EDT [facility] MCH 28.1 25.2 - 33.5 pg 03/22/2025 10:33 AM EDT [facility] MCHC 33.3 28.4 - 34.8 g/dL 03/22/2025 10:33 AM EDT [facility] RDW 13.1 11.8 - 14.4 % 03/22/2025 10:[facility] Plate[facility] 194 138 - 453 k/uL 03/22/2025 10:33 AM EDT [facility] MPV 11.7 8.1 - 13.5 fL 03/22/2025 10:33 AM T [facility] NRBC Automated 0.0 0.0 per 100 WBC 03/22/2025 10:33 AM [facility] 03/22/2025 10:3 3 AM EDT 03/22/2025 10:34 AM EDT Jung Serrato MD HEMATOLOGY ORDERABLES Fin al Result [facility] [address] [place] [address], [facility] [phone] * (ABNORMAL) Comprehensive Metabolic Panel w/ Reflex to MG (02/24/2025 11:15 PM EDT) Sodium 137 136 - 145 mmol/L 02/24/2025 11:15 PM EDT [facility] Potassium 3.6(L) 3.7 - 5.3 mmol/L 02/24/2025 11:15 PM EDT [facility] Chloride 101 98 - 107 mmol/L 02/24/2025 11:15 PM EDT [facility] CO2 25 20 - 31 mmol/L 02/24/2025 11:15 PM [facility] Anion Gap 11 9 - 16 mmol/L 02/24/2025 11:15 PM T [facility] Glucose 85 74 - 99 mg/dL 02/24/2025 11:15 PM [facility] BUN 8 6 - 20 mg/dL 02/24/2025 11:15 PM [facility] Creatinine 0.6 0.50 - 0.90 mg/dL 02/24/2025 11:15 PM [facility] Est, Glom Filt Rate >90 >60 mL/min/1.7 3m2 02/24/2025 11:15 PM T [facility] Comment: These results are not intended for [...] following therapy that affects renal tubular secretion. BUN/Creatinine Ratio 13 9 - 20 02/24/2025 11:15 PM EDT [facility] Calcium 9.1 8.6 - 10.4 mg/dL 02/24/2025 11:15 PM T [facility] Total Protein 6.5(L) 6.6 - 8.7 g/dL 02/24/2025 11:15 PM EDT [facility] Albumin 3.8 3.5 - 5.2 g/dL 02/24/2025 11:15 PM EDT [facility] Albumin/Globulin Ratio 1.5 1.0 - 2.5 02/24/2025 11:15 PM EDT [facility] Total Bilirubin <0.2 0.00 - 1.20 mg/dL 02/24/2025 11:15 PM EDT [facility] Alkaline Phosphatase 65 35 - 104 U/L 02/24/2025 11:15 PM EDT [facility] ALT 123(H) 10 - 35 U/L 02/24/2025 11:15 PM EDT [facility] AST 47(H) 10 - 35 U/L 02/24/2025 11:15 PM EDT [facility] Blood BLOOD SPECIMEN / Unknown 02/24/2025 11:15 PM EDT 02/24/2025 11:21 PM EDT us Fior Villatoro DO CHEMISTRY ORDERABLES Final Re sult [facility] [address] [phone] * (ABNORMAL) CBC with Auto Differential (02/24/2025 11:15 PM EDT) WBC 10.0 3.5 - 11.3 k/uL 02/24/2025 11:15 PM EDT [facility] RBC 4.22 3.95 - 5.11 m/uL 02/24/2025 11:15 PM EDT [facility] Hemoglobin 11.7(L) 11.9 - 15.1 g/dL 02/24/2025 11:15 PM EDT [facility] Hematocrit 34.7(L) 36.3 - 47.1 % 02/24/2025 11:15 PM EDT [facility] MCV 82.2(L) 82.6 - 102.9 fL 02/24/2025 11:15 PM [facility] MCH 27.7 25.2 - 33.5 pg 02/24/2025 11:15 PM [facility] MCHC 33.7 28.4 - 34.8 g/dL 02/24/2025 11:15 PM [facility] RDW 13.0 11.8 - 14.4 % 02/24/2025 11:15 PM [facility] Platelets 215 138 - 453 k/uL 02/24/2025 11:15 PM [facility] MPV 11.2 8.1 - 13.5 fL 02/24/2025 11:15 PM [facility] NRBC Automated 0.0 0.0 per 100 WBC 02/24/2025 11:15 PM [facility] Neutrophils % 70(H) 36 - 65 % 02/24/2025 11:15 PM [facility] Lymphocytes % 23(L) 24 - 43 % 02/24/2025 11:15 PM [facility] Monocytes % 6 3 - 12 % 02/24/2025 11:15 PM [facility] Eosinophils % 1 1 - 4 % 02/24/2025 11:15 PM [facility] Basophils % 0 0 - 2 % 02/24/2025 11:15 PM [facility] Immature Granulocytes % 0 0 % 02/24/2025 11:15 PM [facility] Neutrophils Absolute 6.94 1.50 - 8.10 k/uL 02/24/2025 11:15 PM [facility] Lymphocytes Absolute 2.34 1.10 - 3.70 k/uL 02/24/2025 11:15 PM [facility] Monocytes Absolute 0.59 0.10 - 1.20 k/uL 02/24/2025 11:15 PM [facility] Eosinophils Absolute 0.09 0.00 - 0.44 k/uL 02/24/2025 11:15 PM [facility] Basophils Absolute 0.03 0.00 - 0.20 k/uL 02/24/2025 11:15 PM EDT [facility] Immature Granulocytes Absolute 0.04 0.00 - 0.30 k/uL 02/24/2025 11:15 PM EDT [facility] Blood BLOOD SPECIMEN / Unknown 02/24/2025 11:15 PM EDT 02/24/2025 11:21 PM EDT Fior Villatoro DO HEMATOLOGY ORDERABLES Final R esult Performing Organization Address City/[facility]/ZIP Co de Phone Number [facility] [address] [place] [address] * Magnesium (02/24/2025 11:15 PM EDT) Magnesium 2.0 1.6 - 2.6 mg/dL 02/24/2025 11:15 PM EDT [facility] Blood BLOOD SPECIMEN / Unknown 02/24/2025 11:15 PM EDT 02/24/2025 11:21 PM EDT Fior Villatoro DO CHEMISTRY ORDERABLES Final Re sult Performing Organization Address [facility]/ZIP Co de Phone Number [facility] [address] [place] [address] * (ABNORMAL) Urinalysis with Reflex to Culture (02/24/2025 11:10 PM EDT) Color, UA Hinds(A) Yellow 02/24/2025 11:10 PM EDT [facility] Turbidity UA SLIGHTLY CLOUDY(A) Clear 02/24/2025 11:10 PM EDT [facility] Glucose, Ur NEGATIVE NEGATIVE mg/dL 02/24/2025 11:10 PM EDT [facility] Bilirubin, Urine NEGATIVE NEGATIVE 02/24/2025 11:10 PM EDT [facility] Ketones, Urine NEGATIVE NEGATIVE mg/dL 02/24/2025 11:10 PM EDT [facility] Specific [place], UA 1.015 1.010 - 1.020 02/24/2025 11:10 PM EDT [facility] Urine Hgb NEGATIVE NEGATIVE 02/24/2025 11:10 PM EDT [facility] pH, Urine 7.5 5.0 - 9.0 02/24/2025 11:10 PM EDT [facility] Protein, UA NEGATIVE NEGATIVE mg/dL 02/24/2025 11:10 PM EDT [facility] Urobilinogen, Urine Normal 0.0 - 1.0 EU/dL 02/24/2025 11:10 PM EDT [facility] Nitrite, Urine NEGATIVE NEGATIVE 02/24/2025 11:10 PM EDT [facility] Leukocyte Esterase, Urine NEGATIVE NEGATIVE 02/24/2025 11:10 PM EDT [facility] Urine 02/24/2025 11:1 0 PM EDT 02/24/2025 11:21 PM EDT us Fior Villatoro DO URINE ORDERABLES Final Result [facility] [address] [place] [id number] [phone] * (ABNORMAL) Microscopic Urinalysis (02/24/2025 11:10 PM EDT) WBC, UA 0 TO 2 0 - 5 /HPF 02/24/2025 11:10 PM EDT [facility] RBC, UA 0 TO 2 0 - 2 /HPF 02/24/2025 11:10 PM EDT [facility] Epithelial Cells, UA 2 TO 5 0 - 25 /HPF 02/24/2025 11:10 PM EDT [facility] Bacteria, UA TRACE(A) None 02/24/2025 11:10 PM EDT [facility] Amorphous, UA 2+(A) None 02/24/2025 11:10 PM EDT [facility] 02/24/2025 11:1 0 PM EDT 02/24/2025 11:21 PM EDT Fior Villatoro DO URINE ORDERABLES Final Result Performing Organization Address [facility]/ZIP Co de Phone Number [facility] [address] [phone] * Protein / creatinine ratio, urine (02/24/2025 11:10 PM EDT) Total Protein, Urine 7 mg/dL 02/24/2025 11:10 PM EDT [facility] Comment:No normal range esta blished. Creatinine, Ur 110.0 28.0 - 217.0 mg/dL 02/24/2025 11:10 PM EDT [facility] Urine Total Protein Creatinine Ratio 0.06 0.00 - 0.20 02/24/2025 11:10 PM EDT [facility] Urine (Urine) 02/24/2025 11: 10 PM EDT 02/24/2025 11:21 PM EDT Fior Villatoro DO URINE ORDERABLES Final Result Performing Organization Address [facility] Co de Phone Number [facility] [address] [place] [address] * US OB DETAIL ANATOMY SINGLE OR FIRST GESTATION (02/17/2025) Anatomical Region Laterality Modality Abdomen Other us Luther George MD [facility] US ORDERABLES Final Result * Hepatitis C Antibody (2023 3:30 PM EST) Hepatitis C Ab NONREACTIVE NONREACTIVE 11/10/19 3:30 PM EST [facility] Comment: The hepatitis C procedure used in [...] recommended by ordering HCV RNA by PCR. Blood BLOOD SPECIMEN / Unknown 2023 3:30 PM EST 2023 6:42 PM EST [facility] IMMUN[facility] ORDERABLES F inal Result Performing Organization Address [facility] Co de Phone Number [facility] [address] [place] [address] [facility] [address] [place] [address], [facility] [phone] * HIV Screen (2023 3:30 PM EST) HIV Ag/Ab NONREACTIVE NONREACTIVE 2023 3:30 PM EST [facility] Comment: No laboratory evidence of HIV infection. If acute HIV infection is suspected, consider testing for HIV-1 RNA. BLOOD SPECIMEN / Unknown 2023 3:30 PM EST 2023 6:42 PM EST [facility] IMMUNOLOGY ORDERABLES F inal Result Performing Organization Address [facility] [[email or web address]] de Phone Number [facility] [address] [place] [address], [facility] [phone] [facility] [address] [place] [address] from Last 3 Months or Most Recently Relevant to Health Maintenance Insurance [address] [id number] Care Teams Role Player Relationship Specialty Start Date End Date Oliver Lozano MD PCP - General 01/23/16
--- OUTSIDE RECORDS SUMMARY | 2025-05-10 14:43 | XMS_ITS | Encounter Summary ---
Author Organization [facility] Address [address], [address] [place] [address] Care Team Providers Care Cancer Registry Manager Name Role Phone Oliver Lozano MD Primary Care Provider [phone] Reason for Referral * Imaging (Routine) - Closed Specialty Diagnoses / Procedures Referred By Contac t Referred To Contact Radiology Diagnoses Other specified abnormal findings of blood chemistry Procedures MRI BRAIN W WO CONTRAST Jung Serrato MD [address] [place] [address] Phone: tel: Referral ID Status Reason Start Date Expiration Date Visits Re quested Visits Authorized [id number] Closed 06/03/2024 06/03/2025 1 1 Encounter Details Date Type Department Care Team (Late st Contact Info) Description 06/03/2024 Transcribe Orders [place] [facility] [address] [place] [address] Jung Serrato MD [address] [place] [address] Other specified abnormal findings of blood chemistry (Primary Dx) Social History Tobacco Use Types Packs/Day Years Used Date Smoking Tobacco: Never Smokeless Tobacco: Never Alcohol Use Standard Drinks/Week Comments Yes 0 (1 standard drink = 0.6 oz pur e alcohol) Socially AUDIT-C Answer Date Recorded Q1: How often do you have a drink containing alcohol? Never 06/23/2023 Q2: How many drinks containi ng alcohol do you have on a typical day when you are drinking? Patient does not drink Q3: How often do you have si x or more drinks on one occasion? Never 06/23/2023 Overall Financial Resource Strain (CARDIA) Answe r [...] place to sleep or slept in a retirement (including now)? No 08/18/2023 Food Insecurity Answer Date Recorded Within the past 12 months, y ou worried that your food would run out before you got the money to buy more. 1 08/18/2023 Within the past 12 months, t he food you bought just didn't last and you didn't have money to get more. 1 08/18/2023 Comments Unknown Sex and Gender Information Value Date Recorded Sex Assigned at Not on file Legal Sex Female 1:05 PM EST Gender Identity Not on file Sexual Orientation Not on file documented as of this encounter Plan of Treatment Upcoming Encounters Date Type Department Care Team (Late st Contact Info) Description 05/17/2025 4:00 PM EDT Routine [facility] [place] [address] [place] [address] Emma Nava DO [address] [place] [address] complete transfer of care from Dr. Serrato 06/07/2025 4:00 PM EDT Routine [facility] [employer] [place] [address] [place] [address] Francois Jessika [address] [place] [address] ABEL 06/14/2025 4:00 PM EDT Routine [facility] [place] [address] [place] [address] Francois JessikaDO lynnette [address] [place] [address] ABEL 06/21/2025 4:00 PM EDT Routine [facility] [place] [address] [place] [address] Francois Jessika, [address] [place] [address] ABEL 06/28/2025 4:00 PM EDT Routine [facility]ating [employer] [place] [address] [place] [address] Francois JessikaDO [address] [place] [address] ABEL documented as of this encounter Results * MRI BRAIN W WO CONTRAST (06/09/2024 1:35 PM EDT) Anatomical Region Laterality Modality Head Magnetic Resonan ce 06/10/2024 10:2 6 PM EDT Impressions 06/10/2024 10:29 PM EDT 1. No acute intracranial abnormality. 2. Normal pituitary gland. Narrative 06/10/2024 10:29 PM EDT EXAMINATION: MRI OF THE BRAIN WITHOUT AND WITH CONTRAST 06/09/2024 12:35 pm TECHNIQUE: Multiplanar multisequence MRI of the head/brain was performed without and with the administration of intravenous contrast. COMPARISON: None. HISTORY: ORDERING SYSTEM PROVIDED HISTORY: Other specified abnormal findings of blood tow mate PROVIDED HISTORY: STAT Creatinine as needed:->No FINDINGS: [...] The soft tissues demonstrate no acute abnormality. Procedure Note Tristen Valdes MD - 06/10/2024 EXAMINATION: MRI OF THE BRAIN WITHOUT AND WITH CONTRAST 06/09/2024 12:35 pm TECHNIQUE: Multiplanar multisequence MRI of the head/brain was performed withoutand with the administration of intravenous contrast. COMPARISON: None. HISTORY: ORDERING SYSTEM PROVIDED HISTORY: Other specified abnormal findings ofblood tow mate PROVIDED HISTORY: STAT Creatinine as needed:->No FINDINGS: [...] acute intracranial abnormality. 2. Normal pituitary gland. Jung Serrato MD IMG MRI ORDERABLES Final Result documented in this encounter Visit Diagnoses Diagnosis Other specified abnormal findings of blood chemistry- Primary Other specified abnormal findings of blood chemistry documented in this encounter Care Teams Cancer Registry Manager Relationship Specialty Start Date End Date Oliver Lozano MD PCP - General 01/23/16 documented as of this encounter
--- OUTSIDE RECORDS SUMMARY | 2025-05-10 14:43 | XMS_ITS | Encounter Summary ---
Author Organization [facility] Address [address] [place] [address] Care Team Providers Care Puff Iron Operator Name Role Phone Oliver Lozano MD Primary Care Provider [phone] Unallocated, Noms Provider Primary Care Provi zoltan Encounter Details Date Type Department Care Team (Late st Contact Info) Description 06/10/2024 Clinisync Result Encounter [facility] External Department Unsolicited Jung Serrato DO [address] [place] [address] Social History Tobacco Use Types Packs/Day Years [...] PM EDT Routine [facility] [address] [place] [phone] Jung Serrato DO [address] [place] [address] documented as of this encounter Procedures Procedure [...] HISTORY: Other specified abnormal findings of blood cytology technologist PROVIDED HISTORY: STAT Creatinine as needed:->No FINDINGS: [...] PROVIDED HISTORY: Other specified abnormal findings ofblood cytology technologist PROVIDED HISTORY: STAT Creatinine as needed:->No FINDINGS: [...] by: Tristen Valdes MD 06/10/24 Final [facility] Final Result documented in this encounter Visit Diagnoses Not on filedocumented in this encounter Care Teams Puff Iron Operator Relationship Specialty Start Date End Date Oliver Lozano MD [address] [place] [address] PCP - General Internal Medicine 02/18/23 03/16/25 Unallocated, Noms Provider, [address] [place] [address] PCP - General Family Medicine 03/17/25 documented as of this encounter
--- OUTSIDE RECORDS SUMMARY | 2025-05-10 14:43 | XMS_ITS | Encounter Summary ---
Author Organization [facility] Address [address] [facility] [place] [address] Care Team Providers Care Field Gauger Name Role Phone Oliver Lozano MD Primary Care Provider [phone] Unallocated, Noms Provider Primary Care Provi zoltan [...] PM EDT Routine [facility] [address] [phone] Jung Serrato DO [address] [facility] [address] [place], [facility]11 documented as of this encounter Procedures [...] filedocumented in this encounter Care Teams Field Gauger Relationship Specialty Start Date End Date Oliver Lozano MD [address] [place] [address] PCP - General Internal Medicine 02/18/23 03/16/25 Unallocated, Noms Provider, [place] [address] PCP - General Family Medicine 03/17/25 documented as of this encounter
--- OUTSIDE RECORDS SUMMARY | 2025-05-10 14:43 | XMS_ITS | Clinical Summary ---
Author Organization [facility] Address [address] [place] [address] Care Team Providers Care Cell Changer Name Role Phone Unallocated, Noms Provider Primary Care Provi zoltan Allergies Active Allergy Reactions Criticality Noted Date Comments Ibuprofen Medium 09/16/2015 Bruising t/o the body Other Reaction(s): Other Nsaids 05/11/2024 Other Reaction(s): Unknown Medications magnesium oxide (Mag-Ox) 400 MG tabletIndicatio ns: headache in second trimester ([facility]) Take 1 tablet (400 mg) by mouth Daily 30 tablet 11 5 02/29/20 26 Active Vit-DSS-Fe Fum-FA ( 19) tabletIndicatio ns:Second trimester ([facility]) Take 1 tablet by mouth Daily 30 tablet 11 5 04/26/20 26 Active acyclovir (Zovirax) 400 MG tablet Take 400 mg by mouth Active valACYclovir (Valtrex) 500 MG tabletIndicatio ns:Third trimester ([facility]) Take 1 tablet (500 mg) by mouth Daily 90 tablet 3 5 05/05/20 26 Active Vit-Fe Fumarate-FA ( 19 PO) Take 1 tablet by mouth Daily 04/26/20 25 Discontinu ed(Reorder ) Active Problems Problem Noted Date Diagnosed Date Aortic valve stenosis 01/06/2025 14 weeks gestation of ([facility]) 2024 Second trimester ([facility]) 01/06/2025 Von Willebrand disease 01/06/2025 Estimated Date of Delivery Comme nts Yes 07/06/2025 Based on last me nstrual period of 09/29/2024 Encounters Date Type Department Care Team Description 05/10/2025 1:50 PM EDT Routine [facility] [address] [place] [address] Leyla Rapp PA Third trimester ([facility]); 31 weeks gestation of ([facility]); Cold sore 05/10/2025 Bamboo flowsheet [facility] [address] [place] [address] Leyla Rapp PA 05/03/2025 Clinisync Result Encounter NOM[facility] External Department Unsolicited Provider, Generic External Data 04/26/2025 Refill [facility] [address] [place] [address] Edilia Brady LPN Second trimester ([facility]) 04/25/2025 Orders Only [facility] [address] [place] [phone] Unallocated, Noms MD Heriberto 04/22/2025 Clinisync Result Encounter NOMS External Department Unsolicited Provider, Generic External Data 04/22/2025 Telephone [facility] [address] [place] [address] Sanjana Monaco LPN 04/21/2025 Telephone [facility] [address] [place] [address] Apple Ambrocio MA 04/19/2025 11:00 AM EDT Routine [facility] [address] [place] [address] Leyla Rapp PA 28 weeks gestation of ([facility]); Von Willebrand disease ([facility]); Aortic valve stenosis, etiology of cardiac valve disease unspecified 04/19/2025 Bamboo flowsheet [facility] [address] [place] [address] Leyla Rapp PA 03/24/2025 Abstract [facility] [address] [place] [address] Apple Ambrocio MA 03/22/2025 Clinisync Result Encounter NOMS External Department Unsolicited Bety Serrato, DO 03/14/2025 1:30 PM EDT Routine [facility] [address] [place] [address] Bety Serrato, DO Second trimester ([facility]); 23 weeks gestation of ([facility]); Diabetes mellitus screening 03/14/2025 Abstract [facility] [address] [place] [address] Bety Serrato, DO 03/14/2025 Abstract [facility] [address] [place] [address] Bety Serrato, DO 03/14/2025 Telephone [facility] [address] [place] [phone] Bety Serrato, DO 02/28/2025 Telephone [facility] [address] [place] [address] Edilia Brady LPN 02/18/2025 Orders Only [facility] [address] [place] [address] Apple Ambrocio, STEFF 02/18/2025 Abstract [facility] [address] [place] [address] Bety Serrato, DO 02/09/2025 3:00 PM EDT Routine [facility] [address] [place] [address] Aga Shore NP 19 weeks gestation of ([facility]); Second trimester ([facility]); Well woman exam with routine gynecological exam; Screening, , for anatomic survey ([facility]); Vaginal discharge; Exposure to STD 02/09/2025 Clinisync Result Encounter NOMS External Department Unsolicited Provider, Generic External Data 02/09/2025 External Result Encounter NOMS External Department Unsolicited Aga Shore NP 02/09/2025 Bamboo flowsheet [facility] [address] [place] [address] Aga Shore NP from Last 3 [...] (202 lb) 05/10/2025 2:13 PM EDT Height 157.5 cm (5' 2 ) 06/02/2024 1:03 PM EDT Body Mass Index 36.95 06/02/2024 1:03 PM EDT Plan of Treatment Upcoming Encounters Date Type Department Care Team (Late st Contact Info) Description 05/24/2025 1:20 PM EDT Routine [facility] [address] [place] [phone] Bety Serrato DO [address] [place], [place] [phone] Health Maintenance Due Date Last Done Comments [...] 11:47 AM EDT 28 weeks gestation of ([facility]) MHPT GLUCOSE MISAEL SCR 50G Routine 03/22/2025 10:33 AM EDT ALL CBC WITH AUTO DIFF Routine 03/22/2025 10:33 AM EDT POCT URINALYSIS DIPSTICK Routine 03/14/2025 1:51 PM EDT Second trimester ([facility]) 23 weeks gestation of ([facility]) RECURRENT VAGINITIS (HTRX) Routine 02/09/2025 4:38 PM EDT POCT URINALYSIS DIPSTICK Routine 02/09/2025 3:49 PM EDT 19 weeks gestation of ([facility]) Second trimester ([facility]) IGP,APTIMA HPV,AGE GDLN Routine 02/09/2025 3:33 PM EDT PAP SMEAR Routine 02/09/2025 12:00 AM EDT from Last 3 Months Results * US OB BPP W NON-STRESS (05/03/2025 4:24 PM EDT) Anatomical Region Laterality Modality Other 05/03/2025 4:24 PM EDT Narrative 05/03/2025 4:26 PM EDT [address] [address] Ultrasound Report Signed Patient: EDGAR ORTIZ MR#: [id number] : 1995 Acct:[id number] Age/Sex: 29 / F ADM Date: 05/03/25 Loc: [place] [address]: Leyla Rapp Ordering Physician: Leyla Rapp Date of Service: 05/03/25 Procedure(s): US OB BPP w non-stress Accession Number(s): [id number] cc: Leyla Rapp; JOI LEWIS [place] [address] Patient Name: EDGAR ORTIZ MRN: [id number] date: 1995 Sex: F Assigned Patient Location: [facility] Current Patient Location: [facility] Accession/Order Number: [id number] Exam Date: 05/03/2025 16:23 Report Date: 05/03/2025 16:24 At the request of: LEYLA RAPP Procedure: US OB BPP w non-stress Biophysical profile. Reason for exam: Von Willebrand's disease COMPARISON: None TECHNIQUE: Transabdominal imaging of the gravid uterus was obtained. FINDINGS: The building wrecker reports a BPP of 8 out of 8. ISABELL is normal at 17.4 cm. heart rate 131 bpm. US/US OB BPP w non-stress IMPRESSION: BPP 8 out of 8. Impression dictated by: Parrish Wise Jr., D.O. 05/03/2025 4:24 PM Dictation Location: [place] [address] Electronically authenticated by: [id number] Y Date: 05/03/2025 16:24 Dictated By: Parrish Wise M.D. Signed By: 05/03/25 1626 DD/ 23 TD/TT: Continuous Churn Buttermaker: Procedure Note Radiology, Radiologist, - 05/03/2025 [place] [address] Ultrasound Report Signed Patient: EDGAR ORTIZ MMR#: [id number] : 1995Acct:[id number] Age/Sex: 29 / FADM Date: 05/03/25 Loc: [place] [address]- Attending Dr: Leyla Rapp Ordering Physician: Leyla Rapp Date of Service: 05/03/25 Procedure(s): US OB BPP w non-stress Accession Number(s): [id number] cc: Leyla Rapp; JOI LEWIS [place] [address] Patient Name: EDGAR ORTIZ MRN: [id number] date: 1995 Sex: F Assigned Patient Location: [facility] Current Patient Location: [facility] Accession/Order Number: [id number] Exam Date: 05/03/2025 16:23 Report Date: 05/03/2025 16:24 At the request of: LEYLA RAPP Procedure: US OB BPP w non-stress Biophysical profile. Reason for exam: Von Willebrand's disease COMPARISON: None TECHNIQUE: Transabdominal imaging of the gravid uterus was obtained. FINDINGS: The building wrecker reports a BPP of 8 out of 8. ISABELL is normal at17.4 cm. heart rate 131 bpm. US/US OB BPP w non-stress IMPRESSION: BPP 8 out of 8. Impression dictated by: Parrish Wise Jr., D.O. 05/03/2025 4:24 PM Dictation Location: [place] [address] Electronically authenticated by: [id number] Y Date: 6:24 Dictated By: Parrish Wise M.D. Signed By:05/03/256 DD/ 23 TD/TT: Continuous Churn Buttermaker: us Generic External Data Provider [facility] Final Result * US OB GROWTH (04/22/2025 4:39 PM EDT) Anatomical Region Laterality Modality Other 04/22/2025 4:39 PM EDT Narrative 04/22/2025 4:41 PM EDT [address] [address] Ultrasound Report Signed Patient: EDGAR ORTIZ MR#: [id number] : 1995 Acct:[id number] Age/Sex: 29 / F ADM Date: 04/22/25 Loc: US Attending Dr: Leyla Rapp Ordering Physician: Leyla Rapp Date of Service: 04/22/25 Procedure(s): US OB growth Accession Number(s): [id number] cc: Leyla Rapp; JOI LEWIS [place] [id number] Patient Name: EDGAR ORTIZ MRN: [id number] date: 1995 Sex: F Assigned Patient Location: US Current Patient Location: US Accession/Order Number: [id number] Exam Date: 04/22/2025 16:36 Report Date: 04/22/2025 [...] Lovett M.D. 04/22/2025 4:39 PM Dictation Location: [place] [address] Electronically authenticated by: [id number] Y Date: 04/22/2025 16:39 Dictated By: Tyson Lovett M.D. Signed By: 04/22/25 1641 DD/ 1639 TD/TT: Continuous Churn Buttermaker: Procedure Note Radiology, Radiologist, - 04/22/[address] [address] Ultrasound Report Signed Patient: EDGAR ORTIZ MMR#: [id number] : 1995Acct:[id number] Age/Sex: 29 / FADM Date: 04/22/25 Loc: US Attending Dr: Leyla Rapp Ordering Physician: Leyla Rapp Date of Service: 04/22/25 Procedure(s): US OB growth Accession Number(s): [id number] cc: Leyla Rapp; JOI LEWIS [place] [id number] Patient Name: EDGAR ORTIZ MRN: [id number] date: 1995 Sex: F Assigned Patient Location: US Current Patient Location: US Accession/Order Number: [id number] Exam Date: 04/22/2025 16:36 Report Date: 04/22/2025 [...] Lovett M.D. 04/22/2025 4:39 PM [facility] Electron[facility] authenticated by: [id number] Y Date: 6:39 Dictated By: Tyson Lovett M.D. Signed By:04/22/25 1641 DD/ 1639 TD/TT: Continuous Churn Buttermaker: us Generic External Data Provider [facility] [...] - 9 Protein, UA Negative Negative - 2000(20) ++++ mg/dL Urobilinogen, UA 0.2 0.2 - 12 mg/dL Leukocytes, UA Negative Negative - 500+++ Yoni/mcL Nitrite, UA Negative Negative - Positive Urine 04/19/2025 11:4 7 AM EDT us Leyla JURADO POINT OF CARE TEST ENTER/EDIT OR DERABLES Final Result * MHPT GLUCOSE MISAEL SCR 50G (03/22/2025 10:33 AM EDT) MHPT GLU ADMINISTERED VIA Glucola MHPT MHPT GLUCOSE,MISAEL SCR 50G 119 70 - 135 mg/dL MHPT 03/22/2025 10:3 3 AM EDT 03/22/2025 10:34 AM EDT Narrative CLINISYNC - 03/22/2025 12:44 PM EDT Original Ordering Provider: BETY MCNALLY us Bety Serrato DO CLINISYNC Final Result Performing Organization Address [facility]/ZIP Co de Phone Number CLINTODD MHPT * (ABNORMAL) ALL CBC WITH AUTO DIFF [...] AM EDT 03/22/2025 10:34 AM EDT Narrative ALEXANDROFERNANDO - 03/22/2025 12:22 PM EDT Original Ordering Provider: BETY MCNALLY us Generic External Data Provider CLINISYNC F inal Result CLINHARLEYNC MHPT * RECURRENT VAGINITIS (HTRX) (02/09/2025 4:38 PM EDT) ATOPOBIUM VAGINAE 0.000 19.961 - 24.689 ppm 02/11/2025 6:03 AM EDT [facility] ATOPOBIUM VAGINAE Not Detected 19.961 - 24.689 ppm 02/11/2025 6:03 AM EDT [facility] BVAB 2,3 (BACTERIAL VAGINOSIS ASSOCIATED BACTERIA 2, 3); MOBILUNCUS SPP 0.000 19.961 - 24.689 ppm 02/11/2025 6:03 AM EDT [facility] BVAB 2,3 (BACTERIAL VAGINOSIS ASSOCIATED BACTERIA 2, 3); MOBILUNCUS SPP Not Detected 19.961 - 24.689 ppm 02/11/2025 6:03 AM EDT [facility] PATRICE ALBICANS, PARAPSILOSIS, TROPICALIS 0.000 19.961 - 30.770 ppm 02/11/2025 6:03 AM EDT [facility] PATRICE ALBICANS, PARAPSILOSIS, TROPICALIS Not Detected 19.961 - 30.770 ppm 02/11/2025 6:03 AM EDT [facility] PATRICE GLABRATA 0.000 23.000 - 32.138 ppm 02/11/2025 6:03 AM EDT [facility] PATRICE GLABRATA Not Detected 23.000 - 32.138 ppm 02/11/2025 6:03 AM EDT [facility] PATRICE KRUSEI 0.000 23.000 - 32.271 ppm 02/11/2025 6:03 AM EDT [facility] PATRICE KRUSEI Not Detected 23.000 - 32.271 ppm 02/11/2025 6:03 AM EDT [facility] CHLAMYDIA TRACHOMATIS 0.000 23.000 - 31.467 ppm 02/11/2025 6:03 AM EDT [facility] CHLAMYDIA TRACHOMATIS Not Detected 23.000 - 31.467 ppm 02/11/2025 6:03 AM EDT [facility] GARDNERELLA VAGINALIS 0.000 19.961 - 24.689 ppm 02/11/2025 6:03 AM EDT [facility] GARDNERELLA VAGINALIS Not Detected 19.961 - 24.689 ppm 02/11/2025 6:03 AM EDT [facility] MEGASPHAERA (TYPES 1, 2) 0.000 19.961 - 24.689 ppm 02/11/2025 6:03 AM EDT [facility] MEGASPHAERA (TYPES 1, 2) Not Detected 19.961 - 24.689 ppm 02/11/2025 6:03 AM EDT [facility] NEISSERIA GONORRHOEAE 0.000 23.000 - 32.117 ppm 02/11/2025 6:03 AM EDT [facility] NEISSERIA GONORRHOEAE Not Detected 23.000 - 32.117 ppm 02/11/2025 6:03 AM EDT [facility] TRICHOMONAS VAGINALIS 0.000 23.000 - 32.119 ppm 02/11/2025 6:03 AM EDT [facility] TRICHOMONAS VAGINALIS Not Detected 23.000 - 32.119 ppm 02/11/2025 6:03 AM EDT [facility] MYCOPLASMA GENITALIUM 0.000 19.961 - 24.689 ppm 02/11/2025 6:03 AM EDT [facility] MYCOPLASMA GENITALIUM Not Detected 19.961 - 24.689 ppm 02/11/2025 6:03 AM EDT [facility] Tissue 02/09/2025 4:38 PM EDT 02/11/2025 1:38 AM EDT Aga Shore ADOPTION SOCIAL WORKER LAB BLOOD ORDERABLES Final Re sult [facility] [address] [place] [address] * IGP,APTIMA HPV,AGE GDLN (02/09/2025 3:33 PM EDT) AGE GDLN ACOG TESTING Note . [facility] Comment: TESTS RESULT FLAG UNITS REF RANGE LAB Clinician Provided Cytology Information Source.............Cervix Other.............. No. of containers..01 ThinPrep Vial Age Keron SOLIS Cecille... 3064 01 FLAG LEGEND: L-Low Normal,H-High Normal,LL-Alert Low,HH-Alert High <-Panic Low,>-Panic High,A-Abnormal,AA-Critical Abnormal Performed at: 01 =[facility] [address] [facility] [place] [address] Jasmine Drew MD, IGP, APTIMA HPV, RFX 16/18,45 Note . [facility] Comment: TESTS RESULT FLAG UNITS REF RANGE LAB DIAGNOSIS: 02 NEGATIVE FOR INTRAEPITHELIAL LESION OR MALIGNANCY. Specimen adequacy: 02 Satisfactory for evaluation. No endocervical component is identified. An endocervical component is not commonly seen in the patient. Performed by: Priya Sanchez, Licensed Mental Health Counselor (ASCP) . 02 Note: Note 02 The Pap [...] <-Panic Low,>-Panic High,A-Abnormal,AA-Critical Abnormal Performed at: [address] [address] Jasmine Drew MD, HPV APTIMA Negative Negative [facility] Comment: This nucleic acid amplification test detects fourteen high- risk HPV types (16,18,31,33,35,39,45,51,52,56,58,59,66,68) without differentiation. Performed at: =[facility] [id number] Medical Sociologist: Jasmine Drew MD, Phone: [phone] Performed at: [address] [id number] Medical Sociologist: Jasmine Drew MD, Phone: [phone] 02/09/2025 3:33 PM EDT 02/10/2025 6:53 AM EDT Narrative CLINISYNC - 02/14/2025 6:08 PM EDT SPATULA-ALONE CERVIX Aga Shore NP LAB BLOOD ORDERABLES Final Re sult Performing Organization Address [facility]/ZIP Co de Phone Number [facility] * Pap Smear (02/09/2025 12:00 AM EDT) Swab Cervical swab / Unknown Aag Shore NP LAB CYTOLOGY ORDERABLES Final Result Performing Organization Address [facility]/ZIP Co de Phone Number EXTERNAL LAB from Last 3 Months Insurance [facility] MEDICAID [place] Care Teams Cell Changer Relationship Specialty Start Date End Date Unallocated, Noms Provider, [address] [place] [address] PCP - General Family Medicine 03/17/25
--- OUTSIDE RECORDS SUMMARY | 2025-05-10 14:43 | XMS_ITS | Encounter Summary ---
Author Organization [facility] Address [address], [address] [place] [address] Care Team Providers Care Physical Therapy Aides Teacher Name Role Phone Oliver Lozano MD Primary Care Provider [phone] Reason for Referral * Imaging (Routine) - Pending Review Specialty Diagnoses / Procedures Referred By Jhonny langley Referred To Contact Radiology Diagnoses Dyspareunia, female Abnormal uterine bleeding Procedures US PELVIS COMPLETE Jung Serrato MD [address] [place] [address] Phone: tel: Referral ID Status Reason Start Date Expiration Date V isits Requested Visits Authorized [id number] Pending Review 05/27/2024 05/27/2025 1 1 Encounter Details Date Type Department Care Team (Late st Contact Info) Description 05/27/2024 Transcribe Orders [place] [address] [place] [address] Jung Serrato MD [address] [place] [address] Dyspareunia, female (Primary Dx); Abnormal uterine bleeding Social History Tobacco Use Types Packs/Day Years [...] you are drinking? Patient does not drink 3 Q3: How often do you have si [...] place to sleep or slept in a long term (including now)? No 08/18/2023 Food Insecurity Answer [...] Info) Description 05/17/2025 4:00 PM EDT Routine [facility] Breaker Machine Operator [place] [address] [place] [address] Emma Nava DO [address] [place] [address] complete transfer of care from Dr. Serrato 06/07/2025 4:00 PM EDT Routine [facility] Breaker Machine Operator [place] [address] [place] [address] Francois Jessika, DO [address] [place] [address] ABEL 06/14/2025 4:00 PM EDT Routine [facility] Breaker Machine Operator [place] [address] [place] [address] Francois Jessika, DO [address] [place] [address] ABEL 06/21/2025 4:00 PM EDT Routine [facility] Breaker Machine Operator [place] [address] [place] [address] Francois Jessika, DO [address] [place] [address] ABEL 06/28/2025 4:00 PM EDT Routine [facility] Breaker Machine Operator [place] [address] [place] [address] Francois Jessika DO [address] [place] [address] ABEL documented as of this encounter Results * US PELVIS COMPLETE (05/28/2024 9:18 PM EDT) Anatomical Region Laterality Modality Abdomen, Pelvis, Hip Ultrasound 05/29/2024 7:11 AM EDT Impressions 05/29/2024 7:14 AM EDT 1. Myometrial heterogeneity that could be seen with adenomyosis, incompletely evaluated due to lack of transvaginal imaging. 2. Normal transabdominal sonographic appearance of the ovaries. Narrative 05/29/2024 7:14 AM EDT EXAMINATION: PELVIC ULTRASOUND 05/28/2024 9:17 [...] degree of vascularity. FREE FLUID: None visualized. Procedure Note Adonay Frank MD - 05/29/2024 EXAMINATION: PELVIC [...] Normal transabdominal sonographic appearance of the ovaries. us Jung Wes Serrato MD IMG US ORDERABLES Final R esult documented in this encounter Visit Diagnoses Diagnosis Dyspareunia, female- Primary Dyspareunia Abnormal uterine bleeding Unspecified disorder of menstruation and other abnormal bleeding from female genital tract Dyspareunia, female Dyspareunia Abnormal uterine bleeding Unspecified disorder of menstruation and other abnormal bleeding from female genital tract documented in this encounter Care Teams Physical Therapy Aides Teacher Relationship Specialty Start Date End Date Oliver Lozano MD PCP - General 01/23/16 documented as of this encounter
--- OUTSIDE RECORDS SUMMARY | 2025-05-10 14:43 | XMS_ITS | Encounter Summary ---
Author Organization [facility] Address [address] [place] [address] Care Team Providers Care Continuous Pickling Line Pickler Name Role Phone Oliver Lozano MD Primary Care Provider [phone] Unallocated, Noms Provider Primary Care Provi zoltan Encounter Details Date Type Department Care Team (Late Contact Info) Description 06/28/2024 Abstract YANIQUE DRAPER [address] [place] [place] [phone] Jung Serrato DO [address], [place] [address] Social History Tobacco Use Types Packs/Day Years [...] 1:20 PM EDT Routine YANIQUE DRAPER [address] [place] [phone] Jung Serrato DO [address] [place], [place] [address] documented as of this encounter Visit Diagnoses Not on filedocumented in this encounter Care Teams Continuous Pickling Line Pickler Relationship Specialty Start Date End Date Oliver Lozano MD [address] [place] [address] PCP - General Internal Medicine 02/18/23 03/16/25 Unallocated, Noms Provider, [address] [place] [address] PCP - General Family Medicine 03/17/25 documented as of this encounter
--- OUTSIDE RECORDS SUMMARY | 2025-05-10 14:43 | XMS_ITS | Encounter Summary ---
Author Organization [facility] Address [address] [place] [address] Care Team Providers Care Project Control Analyst Name Role Phone Oliver Lozano MD Primary Care Provider [phone] Unallocated, Noms Provider Primary Care Provi zoltan Encounter Details Date Type Department Care Team (Late st Contact Info) Description 12/17/2024 Abstract YANIQUE DRAPER [facility] [employer] [phone] Jung Serrato DO [address], [place] [address] Social History Tobacco Use Types Packs/Day Years [...] 05/24/2025 1:20 PM EDT Routine YANIQUE DRAPER [facility] [place] [phone] Jung Serrato, DO [address] [place], [place] [phone] documented as of this encounter Visit Diagnoses Not on filedocumented in this encounter Care Teams Project Control Analyst Relationship Specialty Start Date End Date Oliver Lozano MD [address] [facility] [address] [place] [address] PCP - General Internal Medicine 02/18/23 03/16/25 Unallocated, Noms Provider, [address] [place] [address] PCP - General Family Medicine 03/17/25 documented as of this encounter
--- OUTSIDE RECORDS SUMMARY | 2025-05-10 14:43 | XMS_ITS | Encounter Summary ---
Author Organization [facility] Address [address] [facility] [address] Care Team Providers Care Batch Trucker Name Role Phone Unallocated, Noms Provider Primary Care Provi zoltan Encounter Details Date Type Department Care Team (Late st Contact Info) Description 03/24/2025 Abstract YANIQUE DRAPER [address] [place] [address] Apple Ambrocio MA Social History Tobacco [...] 1:20 PM EDT Routine YANIQUE DRAPER [address] [place] [address] Jung Serrato DO [address] [place], [place] [address] documented as of this encounter Visit Diagnoses Not on filedocumented in this encounter Care Teams Batch Trucker Relationship Specialty Start Date End Date Unallocated, [place] [address] PCP - General Family Medicine 03/17/25 documented as of this encounter
--- OUTSIDE RECORDS SUMMARY | 2025-05-10 14:43 | XMS_ITS | Clinical Summary ---
Author Organization [facility] Address [address] [place], [place] [address] Care Team Providers Care Director Geophysical Laboratory Name Role Phone Geneva Ch DO Primary Care Pr ovider Allergies No known active allergies Medications lansoprazole (PREVACID) 30 mg capsule Take 1 capsule by mouth once daily. 0 01/11/2013 Active lisinopril 2.5 mg tablet Take 2.5 mg by mouth once daily. Active TOPIRAMATE (TOPAMAX ORAL) Take 100 mg by mouth. Active Desmopressin Acetate (STIMATE) 150 mcg/spray [place] Use 1 [place] in the nose once daily as needed. 2.5 mL 6 07/26/2013 Active Desmopressin Acetate (STIMATE) 150 mcg/spray spry Use 1 [place] in the nose as needed. 2.5 mL 3 05/17/2014 Active Desmopressin Acetate (STIMATE) 150 mcg/spray (0.1 mL) spry Use 1 [place] in the nose as needed. 2.5 mL [...] 3-dose series) 11/10 Cervical Cancer Screening 2015 Influenza Vaccine (#1) 2025 Insurance Care Teams Director Geophysical Laboratory Relationship Specialty Start Date End Date Geneva Ch DO PCP - General Pediatrics 12/28/12
--- OUTSIDE RECORDS SUMMARY | 2025-05-10 14:43 | XMS_ITS | Encounter Summary ---
Author Organization [facility] Address [address] [place] [address] Care Team Providers Care Customer Service Technician Name Role Phone Oliver Lozano MD Primary Care Provider [phone] Unallocated, Noms Provider Primary Care Provi zoltan Encounter Details Date Type Department Care Team (Late Contact Info) Description 06/01/2024 Abstract YANIQUE DRAPER [address] [employer] [place] [phone] Jung Serrato DO [address], [place] [address] Social History Tobacco Use Types Packs/Day Years [...] 1:20 PM EDT Routine YANIQUE DRAPER [address] [place] [phone] Jung Serrato DO [address], [place] [address] documented as of this encounter Visit Diagnoses Not on filedocumented in this encounter Care Teams Customer Service Technician Relationship Specialty Start Date End Date Oliver Lozano MD [address] [place] [address] PCP - General Internal Medicine 02/18/23 03/16/25 Unallocated, Noms Provider, [address] [place] [address] PCP - General Family Medicine 03/17/25 documented as of this encounter
--- OUTSIDE RECORDS SUMMARY | 2025-05-10 14:43 | XMS_ITS | Clinical Summary ---
Author Organization [facility] Address [address] [place] [address] Care Team Providers Care Self Defense Instructor Name Role Phone Unavailable Primary Care Provider [...] Procedure Name Priority Date/Time Associated Diagnosis Comments CYTOLOGY-STEAM TABLE ASSOCIATE, LIQUID BASED Routine 08/18/2018 2:01 PM EST Gynecologic exam normal Cervical cancer screening HIV 1 AND 2 ANTIBODIES Routine 04/25/2017 2:05 PM EDT Screening for STDs (sexually transmitted diseases) CHLAM & GONORRHEA: AMP CERVIX Routine 04/25/2017 2:05 PM EDT Screening for STDs (sexually transmitted diseases) from Last 3 Months or Most Recently Relevant to Health Maintenance Results * CYTOLOGY-STEAM TABLE ASSOCIATE, LIQUID BASED (08/18/2018 2:01 PM EST) Historical Case Report Cytology Report Patient Name: MARGARET GIFFORD [facility]. Rec. #: [id number] Submitting Physician: MONET AHN Clinical History: Date [...] To The Results Of This Pap Test. [id number]/[id number]/21 Electronically Signed Out By SOY Omalley (ASCP) [...] Result - Final [facility] [address] [place] [address] * CHLAM & GONORRHEA: AMP CERVIX (04/25/2017 2:05 PM EDT) MICRO ACCESSION NUMBER [id number] [facility] Chlamydia trachomatis Culture Negative Negative LAB, [facility] Neisseria Gonorrhoeae, CX Negative Negative LAB, [facility] METHOD THIS TEST WAS PERFORMED USING A REAL TIME PCR ASSAY. LAB, [facility] CERVICAL SWAB / Unknown 04/25/2017 2:05 PM EDT 04/25/2017 5:44 PM EDT Ashlyn Delgado GLOBAL MOBILITY SPECIALIST-ESTIMATOR LUMBER MICROBIOLOGY - GENER AL ORDERABLES Final Result Performing Organization Address [facility]/ZIP Co de Phone Number [address] [address] * HIV 1 AND 2 ANTIBODIES (04/25/2017 2:05 PM EDT) HIV-1/HIV-2 AB/p24 Antigen NONREACTIVE NONREACTIVE LAB, [facility] 04/25/2017 2:05 PM EDT 04/25/2017 5:03 PM EDT Ashlyn Delgado GLOBAL MOBILITY SPECIALIST-ESTIMATOR LUMBER IMMUNOLOGY ORDERABLE S Final Result Performing Organization Address City/[facility]/ZIP Co de Phone Number LAB, [facility] [address] [address] from Last 3 Months or Most Recently Relevant to Health Maintenance Insurance [facility]
--- OUTSIDE RECORDS SUMMARY | 2025-05-10 14:43 | XMS_ITS | Encounter Summary ---
Author Organization [facility] Address [address] [place] [address] Care Team Providers Care Child Care Sitter Name Role Phone Oliver Lozano MD Primary Care Provider [phone] Unallocated, Noms Provider Primary Care Provi zoltan [...] PM EDT Routine N[facility]Melody [place] OBGYN [address] [address] Jung Serrato DO [address] [facility] [address] [place], [facility] documented as of this encounter Procedures Procedure [...] on filedocumented in this encounter Care Teams Child Care Sitter Relationship Specialty Start Date End Date Oliver Lozano MD [address] [place] [address] PCP - General Internal Medicine 02/18/23 03/16/25 Unallocated, Noms Provider, [address] [place] [address] PCP - General Family Medicine 03/17/25 documented as of this encounter
--- OUTSIDE RECORDS SUMMARY | 2025-05-10 14:43 | XMS_ITS | Encounter Summary ---
Author Organization [facility] Address [address] [place] [address] Care Team Providers Care Wire Chief Name Role Phone Oliver Lozano MD Primary Care Provider [phone] Unallocated, Noms Provider Primary Care Provi zoltan Encounter Details Date Type Department Care Team (Late st Contact Info) Description 01/12/2025 Abstract YANIQUE DRAPER [facility] [phone] Jung Serrato DO [address], [place] [address] Social History Tobacco Use Types Packs/Day Years [...] 05/24/2025 1:20 PM EDT Routine YANIQUE DRAPER [facility] [place] [address] Jung Serrato, DO [address], [place] [address] documented as of this encounter Visit Diagnoses Not on filedocumented in this encounter Care Teams Wire Chief Relationship Specialty Start Date End Date Oliver Lozano MD [address] [facility] [address] [place] [address] PCP - General Internal Medicine 02/18/23 03/16/25 Unallocated, Noms Provider, [address] [place] [address] PCP - General Family Medicine 03/17/25 documented as of this encounter
--- OUTSIDE RECORDS SUMMARY | 2025-05-10 14:43 | XMS_ITS | Encounter Summary ---
Author Organization [facility] Address [address] [place] [address] Care Team Providers Care Intelligence Applications Name Role Phone Oliver Lozano MD Primary Care Provider [phone] Unallocated, Noms Provider Primary Care Provi zoltan [...] PM EDT Routine NOMMelody [place] OBGYN [address] [place] [phone] Jung Serrato DO [address] [facility] [address] [place], [facility]11 documented as of this encounter Procedures Procedure [...] 02/09/24 Final result Procedure Note Radiology, Radiologist, - 02/09/2024 Table formatting from the original [...] on filedocumented in this encounter Care Teams Intelligence Applications Relationship Specialty Start Date End Date Oliver Lozano MD [address] [place] [address] PCP - General Internal Medicine 02/18/23 03/16/25 Unallocated, Noms Provider, [place] [address] PCP - General Family Medicine 03/17/25 documented as of this encounter
--- OUTSIDE RECORDS SUMMARY | 2025-05-10 14:43 | XMS_ITS | Encounter Summary ---
Author Organization [facility] Address [address] [place] [address] Care Team Providers Care Supervisor Mechanic Boilermaking Name Role Phone Oliver Lozano MD Primary Care Provider [phone] Unallocated, Noms Provider Primary Care Provi zoltan Encounter Details Date Type Department Care Team (Late st Contact Info) Description 06/23/2024 Clinisync Result Encounter NOMS External Department Unsolicited eBty Serrato DO [address] [place] [address] Social History Tobacco Use Types Packs/Day Years [...] 05/24/2025 1:20 PM EDT Routine YANIQUE [place] OBGYJulius [address] [place] [phone] Bety Serrato DO [address] [place] [address] documented as of this encounter Procedures Procedure Name Priority Date/Time Associated Diagnosis Comments XR CHEST 2V 06/23/2024 8:47 AM EDT documented in this encounter Results * XR CHEST 2V (06/23/2024 8:47 AM EDT) Anatomical Region Laterality Modality Other 06/23/2024 8:47 AM EDT Narrative 06/23/2024 8:50 AM EDT [address] [address] XRay Report Signed Patient: MARGARET GIFFORD MR#: [id number] : 1995 Acct:[id number] Age/Sex: 28 / F ADM Date: 06/21/24 Loc: [facility] Attending Dr: Btey Serrato D.O. Ordering Physician: Bety Serrato D.O. Date of Service: 06/21/24 Procedure(s): XR chest 2V Accession Number(s): [id number] cc: Bety Serrato D.O.; Physician,Non-Staff Yaneth [place] [id number] Patient Name: MARGARET GIFFORD MRN: [id number] date: 1995 Sex: F Assigned Patient Location: [facility] Current Patient Location: Accession/Order Number: [id number] Exam Date: 06/21/2024 11:40 Report Date: 06/23/2024 [...] Hidalgo M.D. Signed By: 06/23/2450 DD/ TD/TT: Crm Architect: Procedure Note Radiology, Radiologist, - 06/23/2024 The [place] [id number] XRay Report Signed Patient: MARGARET GIFFORD MMR#: [id number] : 1995Acct:[id number] Age/Sex: 28 / FADM Date: 06/21/24 Loc: [facility] Attending Dr: Bety Serrato D.O. Ordering Physician: Bety Serrato D.O. Date of Service: 06/21/24 Procedure(s): XR chest 2V Accession Number(s): [id number] cc: Bety Serrato D.O.; Physician,Non-Staff Yaneth The [place] [id number] Patient Name: MARGARET GIFFORD MRN: [id number] date: 1995 Sex: F Assigned Patient Location: [facility] Current Patient Location: Accession/Order Number: [id number] Exam Date: 06/21/2024 11:40 Report Date: 06/23/2024 [...] By: Gerardo Hidalgo M.D. Signed By:06/23/2450 DD/ TD/TT: Crm Architect: Bety Serrato DO [facility] Final Result documented in this encounter Visit Diagnoses Not on filedocumented in this encounter Care Teams Supervisor Mechanic Boilermaking Relationship Specialty Start Date End Date Oliver Lozano MD [address] [place] [address] PCP - General Internal Medicine 02/18/23 03/16/25 Unallocated, Noms Provider, [address] [place] [address] PCP - General Family Medicine 03/17/25 documented as of this encounter
--- OUTSIDE RECORDS SUMMARY | 2025-05-10 14:43 | XMS_ITS | Encounter Summary ---
Author Organization [facility] Address [address] [place] [address] Care Team Providers Care Senior Policy Associate Name Role Phone Oliver Lozano MD Primary Care Provider [phone] Unallocated, Noms Provider Primary Care Provi zoltan [...] PM EDT Routine [facility]OMS Jaqueline OBGYN [address] [place] [phone] Jung Serrato DO [address] [facility] [address] [place], [facility]11 documented as of this encounter Procedures [...] on filedocumented in this encounter Care Teams Senior Policy Associate Relationship Specialty Start Date End Date Oliver Lozano MD [address] [place] [address] PCP - General Internal Medicine 02/18/23 03/16/25 Unallocated, Noms Provider, [address] [place] [address] PCP - General Family Medicine 03/17/25 documented as of this encounter
--- OUTSIDE RECORDS SUMMARY | 2025-05-10 14:43 | XMS_ITS | Encounter Summary ---
Author Organization [facility] Address [address] [place] [address] Care Team Providers Care Offender Job Retention Specialist Name Role Phone Oliver Lozano MD Primary Care Provider [phone] Unallocated, Noms Provider Primary Care Provi zoltan Encounter Details Date Type Department Care Team (Late st Contact Info) Description 12/23/2024 Abstract YANIQUE DRAPER [facility] [employer] [place] [phone] Jung Serrato DO [address], [place] [address] Social History Tobacco Use Types Packs/Day Years [...] 05/24/2025 1:20 PM EDT Routine YANIQUE DRAPER [facility] [employer] [place] [address] Jung Serrato, DO [address], [place] [address] documented as of this encounter Visit Diagnoses Not on filedocumented in this encounter Care Teams Offender Job Retention Specialist Relationship Specialty Start Date End Date Oliver Lozano MD [address] [place] [address] PCP - General Internal Medicine 02/18/23 03/16/25 Unallocated, Noms Provider, [address] [place] [address] PCP - General Family Medicine 03/17/25 documented as of this encounter
--- OUTSIDE RECORDS SUMMARY | 2025-05-10 14:43 | XMS_ITS | Encounter Summary ---
Author Organization [facility] Address [address] [place] [address] Care Team Providers Care Nanny/Household Manager Name Role Phone Unallocated, Noms Provider Primary Care Provi zoltan Reason for Visit * Reason Onset Date Comments Med Refill 04/26/2025 Encounter Details Date Type Department Care Team (Late st Contact Info) Description 04/26/2025 Refill YANIQUE [place] OBGYJulius [address] [place] [address] Edilia Brady LPN [address] [place] [address] Second trimester ([facility]) Social History Tobacco Use Types Packs/Day Years [...] PM EDT Routine [facility] Jaqueline OBGYN [address] [place] [address] Jung Serrato DO [address] [place] [address] documented as of this encounter Visit Diagnoses Diagnosis Second trimester ([facility]) state, incidental documented in this encounter Care Teams Nanny/Household Manager Relationship Specialty Start Date End Date Unallocated, Noms Heriberto, [address] [address] PCP - General Family Medicine 03/17/25 documented as of this encounter
--- OUTSIDE RECORDS SUMMARY | 2025-05-10 14:43 | XMS_ITS | Encounter Summary ---
Author Organization [facility] Address [address] [place] [address] Care Team Providers Care Snow Groomer Name Role Phone Unallocated, Noms Provider Primary Care Provi zoltan Encounter Details Date Type Department Care Team (Late st Contact Info) Description 05/10/2025 Bamboo flowsheet YANIQUE DRAPER [address] [facility] [place] [address] Leyla Matt PA [address] [place], [place] [address] Social History Tobacco Use Types Packs/Day Years [...] 1:20 PM EDT Routine YANIQUE DRAPER [address] [place] [place] [address] Jung Serrato DO [address] [facility] [address] [place], [place] [address] documented as of this encounter Visit Diagnoses Not on filedocumented in this encounter Care Teams Snow Groomer Relationship Specialty Start Date End Date Unallocated, Noms Provider, [place] [address] PCP - General Family Medicine 03/17/25 documented as of this encounter
--- OUTSIDE RECORDS SUMMARY | 2025-05-10 14:43 | XMS_ITS | Encounter Summary ---
Author Organization [facility] Address [address] [facility] [place] [address] Care Team Providers Care Geographic Information Scientist Name Role Phone Oliver Lozano MD Primary Care Provider [phone] Unallocated, Noms Provider Primary Care Provi zoltan Encounter Details Date Type Department Care Team (Late st Contact Info) Description 06/21/2024 Clinisync Result Encounter NOMS External Department Unsolicited Bety Serrato DO [address] [place] [address] Social History Tobacco Use Types Packs/Day Years [...] 05/24/2025 1:20 PM EDT Routine NOMMelody [place] OBGYJulius [address] [place] [phone] Bety Serrato DO [address] [place] [address] documented as of this encounter Procedures Procedure Name Priority Date/Time Associated Diagnosis Comments ECG 12-LEAD 06/21/2024 11:35 AM EDT documented in this encounter Results * ECG 12-LEAD (06/21/2024 11:35 AM EDT) Anatomical Region Laterality Modality Other 06/21/2024 11:3 5 AM EDT Narrative 06/21/2024 10:50 [place] [address] Electrocardiograph Report Signed Patient: MARGARET GIFFORD MR#: [id number] : 1995 Acct:[id number] Age/Sex: 28 / F ADM Date: 06/21/24 Loc: PST Attending Dr: Bety Serrato D.O. Ordering Physician: Bety Serrato D.O. Date of Service: 06/21/24 Procedure(s): ECG 12 lead Accession Number(s): [id number] cc: [facility] Test Date: 2024-06-21 Pat Name: MARGARET GIFFORD Department: Room: - Gender: Female Prescription Clerk: : 1995 Requested By: BETY SERRATO Order Number: [id number] Reading MD: KRISHNA EWING Measurements Intervals [place] Rate: 69 P: 25 AR: 155 QRS: 17 QRSD: 78 T: 19 QT: 360 QTc: 387 Interpretive Statements SINUS RHYTHM No previous ECG available for comparison Electronically Signed On 06-21-2024 22:49:48 EDT by KRISHNA EWING Dictated By: Krishna Ewing D.O. Signed By: 06/21/24 2250 DD/ 1135 TD/TT: Program Manufacturing Leader: Procedure Note Radiology, Radiologist, MD - 06/21/2024 The [place] [id number] Electrocardiograph Report Signed Patient: MARGARET GIFFORD MMR#: [id number] : 1995Acct:[id number] Age/Sex: 28 / FADM Date: 06/21/24 Loc: PST Attending Dr: Bety Serrato D.O. Ordering Physician: Bety Serrato D.O. Date of Service: 06/21/24 Procedure(s): ECG 12 lead Accession Number(s): [id number] cc: [facility] Test Date: 2024-06-21 Pat Name: MARGARET GIFFORD Department: Room: - Gender: Female Prescription Clerk: : 1995 Requested By: BETY SERRATO Order Number: [id number] Reading MD: KRISHNA EWING Measurements Intervals [place] Rate: 69 P: 25 AR: 155 QRS: 17 QRSD: 78 T: 19 QT: 360 QTc: 387 Interpretive Statements SINUS RHYTHM No previous ECG available for comparison Electronically Signed On 06-21-2024 22:49:48 EDT by KRISHNA EWING Dictated By: Krishna Ewing D.O. Signed By:06/21/24 225 DD/ 1135 TD/TT: Program Manufacturing Leader: us Bety Serrato DO [facility] Final Result documented in this encounter Visit Diagnoses Not on filedocumented in this encounter Care Teams Geographic Information Scientist Relationship Specialty Start Date End Date Oliver Lozano MD [address] [place] [address] PCP - General Internal Medicine 02/18/23 03/16/25 Unallocated, Noms Provider, [address] [place] [address] PCP - General Family Medicine 03/17/25 documented as of this encounter
--- OUTSIDE RECORDS SUMMARY | 2025-05-10 14:44 | XMS_ITS | Clinical Summary ---
Author Organization [facility] Address [address] [place] [address] Care Team Providers Care Warehouse Production Worker Name Role Phone Oliver Lozano MD Primary Care Provider [phone] Allergies Active Allergy Reactions Criticality Noted Date [...] Description 05/02/2025 2:00 PM EDT Office Visit [facility] [address] [place] [address] Blayne Smalls MD Aortic regurgitation due to bicuspid aortic valve (Primary Dx); Aortic stenosis due to bicuspid aortic valve; Aortic valve regurgitation due to aortic dilation; Von Willebrand disease (CMS/HCC); 30 weeks gestation of 02/16/[address] [facility] [address] [place] [address] Aliya Siddiqui RN from Last [...] Description 10/20/2025 11:00 AM EST Office Visit [facility] [address] [place] [address] Blayne Smalls MD [address] [place] [address] Health Maintenance Due Date Last [...] patient's age to complete this topic Insurance [facility] Care Teams Warehouse Production Worker Relationship Specialty Start Date End Date Oliver Lozano MD [address] [place] [address] PCP - General Internal Medicine 12/27/24
--- OUTSIDE RECORDS SUMMARY | 2025-05-10 14:44 | XMS_ITS | Clinical Summary ---
Author Organization [facility] Address [id number] [address] [place] [address] Care Team Providers Care Euclid Operator Name Role Phone Oliver Lozano MD Primary Care Provider [phone] Allergies Active Allergy Reactions Criticality Noted Date [...] 11:59 PM EDT Hospital Encounter [facility] [address] [place] [id number] Discharge Disposition: Home 03/30/2025 Travel from Last [...] normal biventricular systolic function. Normal PFO with xfkwl-up-urea shunt and ductus arteriosus seen with eekos-cy-rhfs shunting. There is no evidence of aortic [...] [employer] [place] [employer] Care Teams Euclid Operator Relationship Specialty Start Date End Date Oliver Lozano MD [address] [place] [address], [address] [place] [address] PCP - General 04/29/18
[2025-05-10 15:28] VITALS: BP 112/65; PULSE 99
== END 2025-05-10 15:56 | disposition home or self-care (01) ==
LOC: US 14:40 → FBC 15:02
PROVIDERS: PCP Internal Medicine; Visit Provider Physician Assistant
DX: O26.893 Other specified pregnancy related conditions, third trimester (principal); D68.00 Von Willebrand disease, unspecified; I35.0 Nonrheumatic aortic (valve) stenosis
CPT/HCPCS: 76818

== ENCOUNTER 2025-05-13 17:57 | Outpatient (OUT) | payer MEDICAID, SELFPAY ==
--- OUTSIDE RECORDS SUMMARY | 2025-05-13 18:02 | XMS_ITS | CCD ---
Author Organization [facility] Care Team Providers Care Operational Risk Manager Name Role Phone Andrea Luciano Primary Care Provi zoltan ANDREA LUCIANO Attending Un available ANDREA LUCIANO SHAHANA Primary Care Un available Joi Lewis Primary Care Provider Unavailmone LUCIANO ANDREA SHAHANA Primary Care Un available VERONICA KUO Attending Unavailable ANDREA LUCIANO Primary Care Un available SU WILLIAMSON Attending Unavailable [facility], ANDREA SHAHANA Primary Care Un available ARIELLE VENTURA Attending Unavailable Joi Lewis Primary Care Provider JOI LEWIS Primary Care Unavailable JOI LEWIS Primary Care Unavailable PARUL GRAVES Referring Unavailable JOI LEWIS Primary Care Unavailable PARUL GRAVES Referring Unavailable Joi Lewis MD Primary Care Provider Joi Lewis MD Primary Care Provider [phone] Joi Lewis MD Primary Care Provider Louannlocatnolan [...] Referring Unavailable JOI LEWIS Primary Care Unavailable BLAYNE SMALLS Referring Unavailable JOI LEWIS Primary Care Unavailable BLAYNE SMALLS Referring Unavailable JOI LEWIS Primary Care Unavailable BEKAH, BLAYNE Attending Unavailable BEKAH, BLAYNE Attending Unavailable AMA, JUNG Attending Unavailable BRIAN SHORE Attending Unavailable AMA, JUNG Attending Unavailable LEYLA MATT Attending Unavailable AMA, JUNG Attending Unavailable AMA, JUNG Attending Unavailable LEYLA MATT Attending Unavailable Allergies Allergy Classification Reported Allergen(s) Allergy Type Date of Onset Reaction(s) Facility NSAIDs (2 sources) Ibuprofen; Translations: [IBUPROFEN] Drug Allergy 5 [facility] (20 sources) Ibuprofen; Translations: [IBUPROFEN] Drug Allergy 5 [facility] (20 sources) Non-steroidal anti-inflammator y agent Drug Allergy 4 [facility] (3 sources) Non-steroidal anti-inflammator y agent Propensity to adverse reactions to drug 4 [facility] Medications Current Medications Medication Drug Class(es) Dates Sig (Normalized) Sig (Original) acetaminophen 500 mg oral tablet (8 sources) take 1 tablet by mouth every six hours as needed acetaminophen (TYLENOL) 500 MG tablet Take 500 mg by mouth every 6 (six) hours as needed for pain . 0 Active acyclovir 400 mg oral tablet (3 sources) Herpesvirus Nucleoside Analog DNA Polymerase Inhibitor, Herpes Simplex Virus Nucleoside Analog DNA Polymerase Inhibitor, Herpes Zoster Virus Nucleoside Analog DNA Polymerase Inhibitor acyclovir (Zovirax) 400 MG tablet Take 400 mg by mouth Active 200 actuat albuterol 0.09 mg/actuat metered [...] / zinc oxide 20 mg oral tablet (5 sources) Vitamin B12, Vitamin D, Vitamin C Start: 04-26-2025 End: 04-26-2026 take 1 tablet by mouth once daily Vit-DSS-Fe Fum-FA ( 19) tablet Indications: Second trimester ([facility]) Take 1 tablet by mouth Daily [...] 20 capsule 0 12/01/2019 12/11/2019 Active levonorgestrel 0.936405 mg/hr intrauterine system (10 sources) Progestin, Progestin-containi ng Intrauterine Device levonorgestrel (MIRENA) 20 mcg/24 hr (5 years) IUD 1 each by intrauterine route once. Active magnesium oxide 400 mg oral tablet (12 sources) Start: 02-28-2025 End: 02-28-2026 take 1 [...] topical cream (7 sources) Sulfonamide Antibacterial Start: 019 End: 020 silver sulfADIAZINE (SILVADENE) 1 % cream Indications: Sunburn Apply thin film to left posterior shoulder region and L side of neck daily x 7 days . 50 g 1 06/21/2019 06/20/2020 Active valACYclovir 500 mg oral tablet (3 sources) Herpesvirus Nucleoside Analog DNA Polymerase Inhibitor, Herpes Simplex Virus Nucleoside Analog DNA Polymerase Inhibitor, Herpes Zoster Virus Nucleoside Analog DNA Polymerase Inhibitor Start: 025 End: 026 take 1 tablet by mouth once daily valACYclovir (Valtrex) 500 MG tablet Indications: Third trimester ([facility]) Take 1 tablet (500 mg) by mouth Daily 90 tablet 3 05/10/2025 05/05/2026 Active Start: 12-10-2024 End: 12-20-2024 take 1 tablet by mouth in the [...] 1.5 mg/ml oral solution (6 sources) Uncompetitive F-odmbcs-I-aspartate Receptor Antagonist, Sigma-1 Agonist Start: 10-18-2019 End: 09-30-2020 take 10 mL by mouth four times daily as needed for cough pyrilamine-dextromethorphan ([place] [facility]) 7.5-7.5 mg/5 mL Liqd Indications: Influenza [...] mL/hr, Administer over 61 Minutes, ONCE, On [facility] 02/24/25 at 2315, For 1 dose, For [...] [28 weeks gestation of ] 04-19-2025 Episodic Residual codes; unclassified (2 sources) Gestation period, 31 weeks; Translations: [31 weeks gestation of ] 05-10-2025 Episodic Unclassified (1 source) Von Willebrand disease, [...] Onset: 01-06-2025 12-10-2024 Episodic Residual codes; unclassified (20 sources) Gestation period, 14 weeks; Translations: [14 weeks gestation of ] Onset: 01-06-2025 01-06-2025 Episodic Skin and subcutaneous tissue infections (1 source) Impetigo; Translations: [Impetigo] Episodic Unclassified (1 source) Von Willebrand disease, unspecified; Translations: [Von Willebrand disease, unspecified] Onset: 05-02-2025 Results Test Name Value Interpretation Reference Range Facility US OB BPP W NON-STRESS on 05-10-[address] [address] Ultrasound Report Signed Patient: EDGAR ORTIZ MR#: [id number] : 1995 Acct:[id number] Age/Sex: 29 / F ADM Date: 05/10/25 [facility]: Leyla Matt Ordering Physician: Leyla Matt Date of Service: 05/10/25 Procedure(s): US OB BPP w non-stress Accession Number(s): [id number] cc: Leyla Matt; JOI LEWIS [place] [address] Patient Name: EDGAR ORTIZ MRN: [facility]:[id number] date: 1995 Sex: F [facility] Accession/Order Number: [id number] Exam Date: 05/10/2025 15:37 Report Date: 05/10/2025 15:42 At the request of: LEYLA MATT Procedure: US OB BPP w non-stress Biophysical profile. Reason for exam: Von Willebrand disease COMPARISON: 05/03/2025 TECHNIQUE: Transabdominal imaging of the gravid uterus was obtained. FINDINGS: The insurance broker reports a BPP of 8 out of 8. ISABELL is normal at 13.7 cm. heart rate 142 bpm. US/US OB BPP w non-stress IMPRESSION: BPP 8 out of 8. Impression dictated by: Parrish Wise Jr., D.O. 05/10/2025 3:42 PM Dictation Location: [place] [address] Electronically authenticated by: [id number] Y Date: 05/10/2025 15:42 Dictated By: Parrish Wise M.D. Signed By: 05/10/25 1545 DD/ 1542 TD/TT: Shank Stitcher: [facility] iJa Canales MD - 05/10/2025 [place] [address] Ultrasound Report Signed Patient: EDGAR ORTIZ MR#: [id number] : 1995 Acct:[id number] Age/Sex: 29 / F ADM Date: 05/10/25 [facility]: Leyla Matt Ordering Physician: Leyla Matt Date of Service: 05/10/25 Procedure(s): US OB BPP w non-stress Accession Number(s): [id number] cc: Leyla Matt; JIO LEWIS [address] [address] Patient Name: EDGAR ORTIZ MRN: [facility]:[id number] date: 1995 Sex: F Assigned [facility] Accession/Order Number: [id number] Exam Date: 05/10/2025 15:37 Report Date: 05/10/2025 15:42 At the request of: LEYLA MATT Procedure: US OB BPP w non-stress Biophysical profile. Reason for exam: Von Willebrand disease COMPARISON: 05/03/2025 TECHNIQUE: Transabdominal imaging of the gravid uterus was obtained. FINDINGS: The insurance broker reports a BPP of 8 out of 8. ISABELL is normal at 13.7 cm. heart rate 142 bpm. US/US OB BPP w non-stress IMPRESSION: BPP 8 out of 8. Impression dictated by: Parrish Wise Jr., D.O. 05/10/2025 3:42 PM Dictation Location: [place] [address] Electronically authenticated by: [id number] Y Date: 05/10/2025 15:42 Dictated By: Parrish Wise M.D. Signed By: 05/10/25 1545 DD/ 1542 TD/TT: Shank Stitcher: [facility] [address] Radiology Study observation (narrative) [facility] US OB BPP W NON-STRESS Ordered By: Radiologist Radiology on 05-10-2025 [facility] [employer] Work Phone: US OB BPP W NON-STRESS on 05-03-[address] [address] Ultrasound Report Signed Patient: EDGAR ORTIZ MR#: [id number] : 1995 Acct:[id number] Age/Sex: 29 / F ADM Date: 05/03/25 [facility]: Leyla Matt Ordering Physician: Leyla Matt Date of Service: 05/03/25 Procedure(s): US OB BPP w non-stress Accession Number(s): [id number] cc: Leyla Matt; JOI LEWIS [place] [id number] Patient Name: EDGAR ORTIZ MRN: [facility]:[id number] date: 1995 Sex: F Assigned [facility] Accession/Order Number: [id number] Exam Date: 05/03/2025 16:23 Report Date: 05/03/2025 16:24 At the request of: LEYLA MATT Procedure: US OB BPP w non-stress Biophysical profile. Reason for exam: Von Willebrand's disease COMPARISON: None TECHNIQUE: Transabdominal imaging of the gravid uterus was obtained. FINDINGS: The insurance broker reports a BPP of 8 out of 8. ISABELL is normal at 17.4 cm. heart rate 131 bpm. US/US OB BPP w non-stress IMPRESSION: BPP 8 out of 8. Impression dictated by: Parrish Wise Jr., D.O. 05/03/2025 4:24 PM Dictation Location: [place] [address] Electronically authenticated by: [id number] Y Date: 05/03/2025 16:24 Dictated By: Parrish Wise M.D. Signed By: 05/03/256 DD/ 1624 TD/TT: Shank Stitcher: [facility] RadiologyCharmaineogbee beltran MD - 05/03/2025 [place] [address] Ultrasound Report Signed Patient: EDGAR ORTIZ MR#: [id number] : 1995 Acct:[id number] Age/Sex: 29 / F ADM Date: 05/03/25 [facility]: Leyla Matt Ordering Physician: Leyla Matt Date of Service: 05/03/25 Procedure(s): US OB BPP w non-stress Accession Number(s): [id number] cc: Leyla Matt; JOI LEWIS [address] [address] Patient Name: EDGAR ORTIZ MRN: [id number] date: 1995 Sex: F Assigned [facility] Accession/Order Number: [id number] Exam Date: 05/03/2025 16:23 Report Date: 05/03/2025 16:24 At the request of: LEYLA MATT Procedure: US OB BPP w non-stress Biophysical profile. Reason for exam: Von Willebrand's disease COMPARISON: None TECHNIQUE: Transabdominal imaging of the gravid uterus was obtained. FINDINGS: The insurance broker reports a BPP of 8 out of 8. ISABELL is normal at 17.4 cm. heart rate 131 bpm. US/US OB BPP w non-stress IMPRESSION: BPP 8 out of 8. Impression dictated by: Parrish Wise Jr., D.O. 05/03/2025 4:24 PM Dictation Location: [place] [address] Electronically authenticated by: [id number] Y Date: 05/03/2025 16:24 Dictated By: Parrish Wise M.D. Signed By: 05/03/256 DD/ 23 TD/TT: Shank Stitcher: [facility] Radiology Study observation (narrative) [facility] OB BPP W NON-STRESS Ordered By: Radiologist Radiology on 05-03-2025 [facility] [employer] Work Phone: 37on 05-02-2025 37 No cardiac concerns with you (mild stenosis should be well tolerated) /can't hear any significant regurgitation EKG looks good Notify me when you are in labor (I do want to see baby after ) Follow-up first wee october [facility] Office Visiton 05-02-2025 Follow-up visit [id number] Rhiannon Ortiz 1995 F Date Provider Department Center 05/02/2025 BLAYNE JORDAN RPRaimundo RADHA Kim No family history on file Level of Service:04592 MO OFFICE/OP CONSLTJ NEW/EST PT LOW MDM 30 MINUTES Reason for Visit and Comments: Follow-up [849768] Normal [facility] US OB GROWTHon 04-22-2025 [place] [address] Ultrasound Report Signed Patient: EDGAR ORTIZ MR#: [id number] : 1995 Acct:[id number] Age/Sex: 29 / F ADM Date: 04/22/25 Loc: Attending Dr: Leyla Matt Ordering Physician: Leyla Matt Date of Service: 04/22/25 Procedure(s): US OB growth Accession Number(s): [id number] cc: Leyla Matt; [place] [address] Patient Name: EDGAR ORTIZ MRN: [id number]:[id number] date: 1995 Sex: F Assigned Patient Location: Current Patient Location: Accession/Order Number: [id number] Exam Date: 04/22/2025 16:36 Report Date: 04/22/2025 [...] Lovett M.D. 04/22/2025 4:39 PM Dictation Location: [place] [address] Electronically authenticated by: [id number] Y Date: 04/22/2025 16:39 Dictated By: Tyson Lovett M.D. Signed By: 04/22/25 1648 DD/ 1639 TD/TT: Shank Stitcher: [facility] Radiology Radiologbee beltran MD - 04/22/2025 [place] [address] Ultrasound Report Signed Patient: EDGAR ORTIZ MR#: [id number] : 1995 Acct:[id number] Age/Sex: 29 / F ADM Date: 04/22/25 Loc: US Attending Dr: Leyla Matt Ordering Physician: Leyla Matt Date of Service: 04/22/25 Procedure(s): US OB growth Accession Number(s): [id number] cc: Leyla Matt; JOI LEWIS [place] [id number] Patient Name: EDGAR ORTIZ MRN: [facility]:[id number] date: 1995 Sex: F Assigned Patient Location: Current Patient Location: Accession/Order Number: [id number] Exam Date: 04/22/2025 16:36 Report Date: 04/22/2025 [...] Lovett M.D. 04/22/2025 4:39 PM Dictation Location: [place] [address] Electronically authenticated by: [id number] Y Date: 04/22/2025 16:39 Dictated By: Tyson Lovett M.D. Signed By: 04/22/25 1641 DD/ 1639 TD/TT: Shank Stitcher: [facility] Radiology Study observation (narrative) [facility] US OB GROWTHOrdered By: Radi ologist Radiology on 04-22-2025 [facility] [employer] Work Phone: Urinalysis macro (dipstick) panel (U)on 04-19-2025 Bilirubin, UA Negative Negative - 4(70) +++ mg/dL [facility] Blood, UA Negative Negative - 50 Stanford/mcL [facility] Clarity, UA Clear [facility] re Color, UA Yellow [facility] e Glucose, UA Negative Negative - 2000(110) ++++ mg/dL [facility] Interpretation and review of laboratory results Normal [facility] Ketones, UA Negative Negative - 160(16) ++++ mg/dL [facility] Leukocytes, UA Negative Negative - 500+++ Yoni/mcL [facility] Nitrite, UA Negative Negative - Positive [facility] pH, UA 6 5 - 9 [facility] e Protein, UA Negative Negative - 2000(20) ++++ mg/dL [facility] Spec Grav, UA 1.01 1 - 1.03 [facility] Urobilinogen, UA 0.2 0.2 - 12 mg/dL [facility] ALL CBC WITH AUTO DIFFon Erythrocyte distribution width (RBC) [Ratio] 13.1 % 11.8 - 14.4 % [facility] Hematocrit (Bld) [Volume fraction] 35.1 % Low 36.3 - 47.1 % [facility] Hemoglobin (Bld) [Mass/Vol] 11.7 g/dL Low 11.9 - 15.1 g/dL [facility] Interpretation and review of laboratory results Abnormal [facility] re MCH (RBC) [Entitic mass] 28.1 pg 25.2 - 33.5 pg [facility] MCHC (RBC) [Mass/Vol] 33.3 g/dL 28.4 - 34.8 g/dL [facility] MCV (RBC) [Entitic vol] 84.4 fL 82.6 - 102.9 fL [facility] MHPT NRBC AUTOMATED 0 0.0 per 100 WBC [facility] MHPT PLATELET COUNT 194 [facility] WBC COUNT 9.8 [facility] Platelet mean volume (Bld) [Entitic vol] 11.7 fL 8.1 - 13.5 fL [facility] RBC (Bld) [#/Vol] 4.16 10*6/uL 3.95 - 5.1 1 m/uL [facility] Original Ordering Provider: JUNG RADER DO [facility] Healthcar e CBCon 03-22-2025 Erythrocyte distribution width (RBC) [Ratio] 13.1 % 11.8 - 14.4 % [facility] Hematocrit (Bld) [Volume fraction] 35.1 % Low 36.3 - 47.1 % [facility] Hemoglobin (Bld) [Mass/Vol] 11.7 g/dL Low 11.9 - 15.1 g/dL [facility] Interpretation and review of laboratory results Abnormal [facility] MCH (RBC) [Entitic mass] 28.1 pg 25.2 - 33.5 pg [facility] MCHC (RBC) [Mass/Vol] 33.3 g/dL 28.4 - 34.8 g/dL [facility] MCV (RBC) [Entitic vol] 84.4 fL 82.6 - 102.9 fL [facility] Nucleated RBC/100 WBC (Bld) [Ratio] 0 % 0.0 per 100 WBC [facility] Platelet mean volume (Bld) [Entitic vol] 11.7 fL 8.1 - 13.5 fL [facility] Platelets (Bld) [#/Vol] 194 10*3/uL [facility] RBC (Bld) [#/Vol] 4.16 10*6/uL 3.95 - 5.1 1 m/uL [facility] WBC other (Bld) [#/Vol] 9.8 [facility] Erythrocyte distribution width (RBC) [Ratio] 13.1 % Normal 11.8-14.4 [facility] Comment on above: Performed By: #### G NOLAN, CBC #### [address] [place] [address] Podiatric Assistant: Patricio Kelley MD Hematocrit (Bld) [Volume fraction] 35.1 % Low 36.3-47.1 [facility] Comment on above: Performed By: #### G LUANGELICA, CBC #### [address] [place] [address] Podiatric Assistant: Patricio Kelley MD Hemoglobin (Bld) [Mass/Vol] 11.7 g/dL Low 11.9-15.1 [facility] Comment on above: Performed By: #### G NOLAN, CBC #### [address] [place] [address] Podiatric Assistant: Patricio Kelley MD MCH (RBC) [Entitic mass] 28.1 pg Normal 25.2-33.5 [facility] Comment on above: Performed By: #### G NOLAN, CBC #### [address] [place] [address] Podiatric Assistant: Patricio Kelley MD MCHC (RBC) [Mass/Vol] 33.3 g/dL Normal 28.4-34.8 [facility] Comment on above: Performed By: #### G NOLAN, CBC #### [address] [place] [address] Podiatric Assistant: Patricio Kelley MD MCV (RBC) [Entitic vol] 84.4 fL Normal 82.6-102.9 [facility] Comment on above: Performed By: #### G LUSC, CBC #### [address] [place] [address] Podiatric Assistant: Patricio Kelley MD NRBC Automated 0.0 per 100 WBC Normal 0.0 [facility] Comment on above: Performed By: #### G NOLAN, CBC #### [facility] [address] [place], [place] [address] Podiatric Assistant: Patricio Kelley MD Platelet mean volume (Bld) [Entitic vol] 11.7 fL Normal 8.1-13.5 [facility] Comment on above: Performed By: #### G NOLAN, CBC #### [facility] [address] [place], [place] [address] Podiatric Assistant: Patricio Kelley MD Platelets (Bld) [#/Vol] 194 10*3/uL Normal 138-453 [facility] Comment on above: Performed By: #### G NOLAN, CBC #### [facility] [address] [place], [place] [id number] Podiatric Assistant: Patricio Kelley MD RBC (Bld) [#/Vol] 4.16 10*6/uL Normal 3.95-5.11 [facility] Comment on above: Performed By: #### G NOLAN, CBC #### [facility] [address] [place], [place] [address] Podiatric Assistant: Patricio Kelley MD WBC (Bld) [#/Vol] 9.8 10*3/uL Normal 3.5-11.3 [facility] Comment on above: Performed By: #### G NOLAN, CBC #### [facility] [address] [place], [place] [id number] Podiatric Assistant: Patricio Kelley MD Glucose Challenge Gestationa jolene 03-22-2025 GLU ADMN Glucola [facility] Glucose 1 Hr post 50 g glucose PO [Mass/Vol] 119 mg/dL 70 - 135 mg/dL [facility] Glucose Mikel Scr 50gon 2024 Glucose [Mass/Vol] 119 mg/dL Normal 70-135 [facility] Comment on above: Performed By: #### G NOLAN, CBC #### [facility] [address] [place] [address] Podiatric Assistant: Patricio Kelley MD Glu Administered via Glucola Normal [facility] Comment on above: Performed By: #### G LUSC, CBC #### [facility] [address] [place] [address] Podiatric Assistant: Patricio Kelley MD Urinalysis macro (dipstick) panel (U)on 03-14-2025 Bilirubin, UA Negative Negative - 4(70) +++ mg/dL [facility] Blood, UA Negative Negative - 50 Stanford/mcL [facility] Clarity, UA Clear [facility] re Color, UA Yellow [facility] Glucose, UA Negative Negative - 1999(110) ++++ mg/dL [facility] Interpretation and review of laboratory results Normal [facility] re Ketones, UA Negative Negative - 160(16) ++++ mg/dL [facility] Leukocytes, UA Negative Negative - 500+++ Yoni/mcL [facility] Nitrite, UA Negative Negative - Positive [facility] pH, UA 7 5 - 9 [facility] e Protein, UA Negative Negative - 1999(20) ++++ mg/dL [facility] Spec Grav, UA 1.02 1 - 1.03 [facility] Urobilinogen, UA 0.2 0.2 - 12 mg/dL [facility] CBC with Auto Differentialon 02-24-2025 Basophils (Bld) [#/Vol] 0.03 10*3/uL [facility] Basophils/100 WBC (Bld) 0 % 0 - 2 % [facility] Eosinophils (Bld) [#/Vol] 0.09 10*3/uL [facility] Eosinophils/100 WBC (Bld) 1 % 1 - 4 % [facility] Erythrocyte distribution width (RBC) [Ratio] 13 % 11.8 - 14.4 % [facility] Hematocrit (Bld) [Volume fraction] 34.7 % Low 36.3 - 47.1 % [facility] Hemoglobin (Bld) [Mass/Vol] 11.7 g/dL Low 11.9 - 15.1 g/dL [facility] Immature granulocytes (Bld) [#/Vol] 0.04 10*3/uL [facility] Immature granulocytes/100 WBC (Bld) 0 % 0 [facility] Interpretation and review of laboratory results Abnormal [facility] Lymphocytes/100 WBC (Bld) 23 % Low 24 - 43 % [facility] Lymphocytes/100 WBC (Bld) 2.34 % [facility] MCH (RBC) [Entitic mass] 27.7 pg 25.2 - 33.5 pg [facility] MCHC (RBC) [Mass/Vol] 33.7 g/dL 28.4 - 34.8 g/dL [facility] MCV (RBC) [Entitic vol] 82.2 fL Low 82.6 - 102.9 fL [facility] Monocytes/100 WBC (Bld) 6 % 3 - 12 % [facility] Monocytes/100 WBC (Bld) 0.59 % [facility] Neutrophils/100 WBC (Bld) 70 % High 36 - 65 % [facility] Nucleated RBC/100 WBC (Bld) [Ratio] 0 % 0.0 per 100 WBC [facility] Platelet mean volume (Bld) [Entitic vol] 11.2 fL 8.1 - 13.5 fL [facility] Platelets (Bld) [#/Vol] 215 10*3/uL [facility] RBC (Bld) [#/Vol] 4.22 10*6/uL 3.95 - 5.1 1 m/uL [facility] Segmented neutrophils/100 WBC (Bld) 6.94 % [facility] WBC other (Bld) [#/Vol] 10 [facility] CBC with Diffon 02-24-2025 Abs. Basophil 0.03 k/uL Normal 0.00-0.20 [facility] Comment on above: Performed By: #### C DP, CMPX, MG #### [facility] [address] [place] [address] Podiatric Assistant: Patricio Kelley MD Abs.Imm.Granulocyt e 0.04 k/uL Normal 0.00-0.30 [facility] Comment on above: Performed By: #### C DP, CMPX, MG #### [address] [place], [place] [address] Podiatric Assistant: Patricio Kelley MD Abs.Neutrophil (Seg) 6.94 k/uL Normal 1.50-8.10 [facility] Comment on above: Performed By: #### C DP, CMPX, MG #### [address] [place], [facility] Podiatric Assistant: Patricio Kelley MD Basophils/100 WBC (Bld) 0 % Normal 0-2 [facility] Comment on above: Performed By: #### C DP, CMPX, MG #### [address] [place], [facility] Podiatric Assistant: Patricio Kelley MD Eosinophils (Bld) [#/Vol] 0.09 10*3/uL Normal 0.00-0.44 [facility] Comment on above: Performed By: #### C DP, CMPX, MG #### [address] [place], [place] [address] Podiatric Assistant: Patricio Kelley MD Eosinophils/100 WBC (Bld) 1 % Normal 1-4 [facility] [facility] Comment on above: Performed By: #### C DP, CMPX, MG #### [address] [place], [facility] Podiatric Assistant: Patricio Kelley MD Erythrocyte distribution width (RBC) [Ratio] 13.0 % Normal 11.8-14.4 [facility] Comment on above: Performed By: #### C DP, CMPX, MG #### [address] [place], [facility]83 Podiatric Assistant: Patricio Kelley MD Hematocrit (Bld) [Volume fraction] 34.7 % Low 36.3-47.1 [facility] Comment on above: Performed By: #### C DP, CMPX, MG #### [facility] [address] [place] [address] Dr. [place], [place] [id number] Podiatric Assistant: Patricio Kelley MD Hemoglobin (Bld) [Mass/Vol] 11.7 g/dL Low 11.9-15.1 [facility] Comment on above: Performed By: #### C DP, CMPX, MG #### [address] [place], [place] [id number] Podiatric Assistant: Patricio Kelley MD Immature granulocytes/100 WBC (Bld) 0 % Normal 0 [facility] Comment on above: Performed By: #### C DP, CMPX, MG #### [address] [place], [facility]83 Podiatric Assistant: Patricio Kelley MD Lymphocytes (Bld) [#/Vol] 2.34 10*3/uL Normal 1.10-3.70 [facility] Comment on above: Performed By: #### C DP, CMPX, MG #### [address] [place] [address] Podiatric Assistant: Patricio Kelley MD Lymphocytes/100 WBC (Bld) 23 % Low 24-43 [facility] Comment on above: Performed By: #### C DP, CMPX, MG #### [address] [place], [facility]83 Podiatric Assistant: Patricio Kelley MD MCH (RBC) [Entitic mass] 27.7 pg Normal 25.2-33.5 [facility] Comment on above: Performed By: #### C DP, CMPX, MG #### [address] [place] [address] Podiatric Assistant: Patricio Kelley MD MCHC (RBC) [Mass/Vol] 33.7 g/dL Normal 28.4-34.8 [facility] Comment on above: Performed By: #### C DP, CMPX, MG #### [facility] [address] [place], [place] [address] Podiatric Assistant: Patricio Kelley MD MCV (RBC) [Entitic vol] 82.2 fL Low 82.6-102.9 [facility] Comment on above: Performed By: #### C DP, CMPX, MG #### [facility] [address] [place], [place] [address] Podiatric Assistant: Patricio Kelley MD Monocytes (Bld) [#/Vol] 0.59 10*3/uL Normal 0.10-1.20 [facility] Comment on above: Performed By: #### C DP, CMPX, MG #### [address] [place], [place] [address] Podiatric Assistant: Patricio Kelley MD Monocytes/100 WBC (Bld) 6 % Normal 3-12 [facility] Comment on above: Performed By: #### C DP, CMPX, MG #### [address] [place], [place] [address] Podiatric Assistant: Patricio Kelley MD Neutrophil (Seg) 70 % High 36-65 [facility] Comment on above: Performed By: #### C DP, CMPX, MG #### [address] [place], [place] [address] Podiatric Assistant: Patricio Kelley MD NRBC Automated 0.0 per 100 WBC Normal 0.0 [facility] Comment on above: Performed By: #### C DP, CMPX, MG #### [address] [place], [facility]83 Podiatric Assistant: Patricio Kelley MD Platelet mean volume (Bld) [Entitic vol] 11.2 fL Normal 8.1-13.5 [facility] Comment on above: Performed By: #### C DP, CMPX, MG #### [facility] [address] [place], [place] [id number] Podiatric Assistant: Patricio Kelley MD Platelets (Bld) [#/Vol] 215 10*3/uL Normal 138-453 [facility] Comment on above: Performed By: #### C DP, CMPX, MG #### [facility] [address] [place], [facility]83 Podiatric Assistant: Patricio Kelley MD RBC (Bld) [#/Vol] 4.22 10*6/uL Normal 3.95-5.11 [facility] Comment on above: Performed By: #### C DP, CMPX, MG #### [address] [place], [place] [id number] Podiatric Assistant: Patricio Kelley MD WBC (Bld) [#/Vol] 10.0 10*3/uL Normal 3.5-11.3 [facility] Comment on above: Performed By: #### C DP, CMPX, MG #### [address] [place], [place] [id number] Podiatric Assistant: Patricio Kelley MD Comp Metabolic Pr/rfx MGon 0 - Albumin [Mass/Vol] 3.8 g/dL Normal 3.5-5.2 [facility] Comment on above: Performed By: #### C DP, CMPX, MG #### [facility] [address] [place] [address] Dr. [place], [facility]83 Podiatric Assistant: Patricio Kelley MD Albumin/Glob Ratio 1.5 Normal 1.0-2.5 [facility] Comment on above: Performed By: #### C DP, CMPX, MG #### [facility] [address] [place], [place] [phone] Podiatric Assistant: Patricio Kelley MD Alkaline Phos 65 U/L Normal 35-104 [facility] Comment on above: Performed By: #### C DP, CMPX, MG #### [facility] [address] [place], [place] [id number] Podiatric Assistant: Patricio Kelley MD ALT [Catalytic activity/Vol] 123 U/L High -35 [facility] Comment on above: Performed By: #### C DP, CMPX, MG #### [facility] [address] [place], [place] [id number] Podiatric Assistant: Patricio Kelley MD Anion gap [Moles/Vol] 11 mmol/L Normal 9-16 [facility] Comment on above: Performed By: #### C DP, CMPX, MG #### [address] [place], [place] [id number] Podiatric Assistant: Patricio Kelley MD AST [Catalytic activity/Vol] 47 U/L [facility] -35 [facility] Comment on above: Performed By: #### C DP, CMPX, MG #### [address] [place], [place] [id number] Podiatric Assistant: Patricio Kelley MD Bilirubin [Mass/Vol] mg/dL Normal 0.00-1.20 [facility] Comment on above: Performed By: #### C DP, CMPX, MG #### [address] [place], [place] [id number] Podiatric Assistant: Patricio Kelley MD BUN/CRE Ratio 13 Normal 9-20 [facility] Comment on above: Performed By: #### C DP, CMPX, MG #### [address] [place], [place] [id number] Podiatric Assistant: Patricio Kelley MD Calcium [Mass/Vol] 9.1 mg/dL Normal 8.6-10.4 [facility] Comment on above: Performed By: #### C DP, CMPX, MG #### [address] [place], [place] [id number] Podiatric Assistant: Patricio Kelley MD Chloride [Moles/Vol] 101 mmol/L Normal 98-107 [facility] Comment on above: Performed By: #### C DP, CMPX, MG #### [facility] [address] [place] [address] Podiatric Assistant: Patricio Kelley MD CO2 [Moles/Vol] 25 mmol/L Normal 20-31 [facility] Comment on above: Performed By: #### C DP, CMPX, MG #### [facility] [address] [place] [address] Podiatric Assistant: Patricio Kelley MD Creatinine [Mass/Vol] 0.6 mg/dL Normal 0.50-0.90 [facility] Comment on above: Performed By: #### C DP, CMPX, MG #### [facility] [address] [place] [address] Podiatric Assistant: Patricio Kelley MD GFR/1.73 sq M.predicted among non-blacks MDRD (S/P/Bld) [Vol rate/Area] mL/min/{1.73_m2} Normal >60 [facility] Comment on above: Result Comment: These results [...] By: #### C DP, CMPX, MG #### [facility] [address] [place] [address] Podiatric Assistant: Patricio Kelley MD Glucose [Mass/Vol] 85 mg/dL Normal 74-99 [facility] Comment on above: Performed By: #### C DP, CMPX, MG #### [facility] [address] [place] [id number] Podiatric Assistant: Patricio Kelley MD Potassium [Moles/Vol] 3.6 mmol/L Low 3.7-5.3 [facility] Comment on above: Performed By: #### C DP, CMPX, MG #### [facility] [address] [place] [address] Podiatric Assistant: Patricio Kelley MD Protein [Mass/Vol] 6.5 g/dL Low 6.6-8.7 [facility] Comment on above: Performed By: #### C DP, CMPX, MG #### [facility] [address] [place] [address] Podiatric Assistant: Patricio Kelley MD Sodium [Moles/Vol] 137 mmol/L Normal 136-145 [facility] Comment on above: Performed By: #### C DP, CMPX, MG #### [facility] [address] [place] [address] Podiatric Assistant: Patricio Kelley MD Urea nitrogen [Mass/Vol] 8 mg/dL Normal 6-20 [facility] Comment on above: Performed By: #### C DP, CMPX, MG #### [facility] [address] [place] [address] Podiatric Assistant: Patricio Kelley MD Comprehensive Metabolic Pane l w/ Reflex to on 02-24-2025 Albumin [Mass/Vol] 3.8 g/dL 3.5 - 5.2 g/dL [facility] Albumin/Globulin [Mass ratio] 1.5 {ratio} 1.0 - 2.5 [facility] ALP [Catalytic activity/Vol] 65 U/L 35 - 104 U/L [facility] ALT [Catalytic activity/Vol] 123 U/L High 10 - 35 U/L [facility] Anion gap [Moles/Vol] 11 mmol/L 9 - 16 mmol/L [facility] AST [Catalytic activity/Vol] 47 U/L High 10 - 35 U/L [facility] Bilirubin [Mass/Vol] mg/dL 0.00 - 1.20 mg/dL [facility] Calcium [Mass/Vol] 9.1 mg/dL 8.6 - 10. 4 mg/dL [facility] Chloride [Moles/Vol] 101 mmol/L 98 - 107 mmol/L [facility] CO2 [Moles/Vol] 25 mmol/L 20 - 31 mmol/L [facility] Creatinine [Mass/Vol] 0.6 mg/dL 0.50 - 0.90 mg/dL [facility] Est, Vanessa Hallt Rate - PINF [facility] Comment on above: These results are not [...] [Mass/Vol] 85 mg/dL 74 - 99 mg/dL [facility] Interpretation and review of laboratory results Abnormal [facility] Potassium [Moles/Vol] 3.6 mmol/L Low 3.7 - 5.3 mmol/L [facility] Protein [Mass/Vol] 6.5 g/dL Low 6.6 - 8.7 g/dL [facility] Sodium [Moles/Vol] 137 mmol/L 136 - 145 mmol/L [facility] Urea nitrogen [Mass/Vol] 8 mg/dL 6 - 20 mg/dL [facility] Urea nitrogen/Creatinin e [Mass ratio] 13 mg/mg 9 - 20 [facility] Magnesiumon 02-24-2025 Magnesium [Mass/Vol] 2 mg/dL 1.6 - 2.6 mg/dL [facility] Magnesium [Mass/Vol] 2.0 mg/dL Normal 1.6-2.6 [facility] Comment on above: Performed By: #### C DP, CMPX, MG #### [facility] [address] [place] [address] Podiatric Assistant: Patricio Kelley MD Microscopic Urinalysison Amorphous sediment LM Ql (Urine sed) 2+ Abnormal None [facility] Bacteria LM Ql (Urine sed) TRACE Abnormal None [facility] Epithelial cells LM.HPF (Urine sed) [#/Area] 2 TO 5 [facility] Interpretation and review of laboratory results Abnormal [facility] RBC LM.HPF (Urine sed) [#/Area] 0 TO 2 [facility] WBC LM.HPF (Urine sed) [#/Area] 0 TO 2 [facility] No Panel Informationon 02-24 [facility] Protein / creatinine ratio, urineon 02-24-2025 Creatinine (U) [Mass/Vol] 110 mg/dL 28.0 - 217.0 mg/dL [facility] Protein (U) [Mass/Vol] 7 mg/dL [facility] Comment on above: No normal range esta blished. Urine Total Protein Creatinine Ratio 0.06 0.00 - 0.20 [facility] Protein,Tot,Zoe Uron 2024 Creatinine [Mass/Vol] 110.0 mg/dL Normal 28.0-217.0 [facility] Comment on above: Performed By: #### U RTPRT ####[facility] [place] [address] Lab Director: Patricio Kelley MD Tot Prot. Conc. 7 mg/dL Normal [facility] Comment on above: Result Comment: No n ormal range established. Performed By: #### U RTPRT ####[facility] [place] [address] Lab Director: Patricio Kelley MD TP/Cre Ratio 0.06 Normal 0.00-0.20 [facility] Comment on above: Performed By: #### U RTPRT ####[facility] [place] [address] Lab Director: Patricio Kelley MD UA w/Reflex Cultureon 2024 Bilirubin, SemiQt,Ur Negative Normal NEG [facility] Comment on above: Performed By: #### U MICAO, UAX #### [facility] [address] [place], [place] [address]57[address]3 Podiatric Assistant: Patricio Kelley MD Blood, Urine Negative Normal NEG [facility] Comment on above: Performed By: #### U MICAO, UAX #### [facility] [address] [place] [address] [place] [address] Podiatric Assistant: Patricio Kelley MD Clarity (U) SLIGHTLY CLOUDY Abnormal CLEAR [facility] Comment on above: Performed By: #### U MICAO, UAX #### [facility] [address] [place] [address] [place] [address] Podiatric Assistant: Patricio Kelley MD Color (U) [place] Abnormal YEL [facility] Comment on above: Performed By: #### U MICAO, UAX #### [facility] [address] [place] [address] Dr. [place], [place] 4697583 Podiatric Assistant: Patricio Kelley MD Glucose Ql (U) Negative Normal NEG [facility] Comment on above: Performed By: #### U MICAO, UAX #### [facility] [address] [place] [address] [place] [address] Podiatric Assistant: Patricio Kelley MD Ketones Ql (U) Negative Normal NEG [facility] Comment on above: Performed By: #### U MICAO, UAX #### [facility] [address] [place] [address] Podiatric Assistant: Patricio Kelley MD Leukocyte esterase Test strip Ql (U) Negative Normal NEG [facility] Comment on above: Performed By: #### U MICAO, UAX #### [facility] [address] [place], [place] 8245183 Podiatric Assistant: Patricio Kelley MD Nitrite,Ur Negative Normal NEG [facility] Comment on above: Performed By: #### U MICAO, UAX #### [facility] [address] [place], [place] 4049183 Podiatric Assistant: Patricio Kelley MD PH,Ur 7.5 Normal 5.0-9.0 [facility] Comment on above: Performed By: #### U MICAO, UAX #### [facility] [address] [place] [address] Podiatric Assistant: Patricio Kelley MD Protein Ql (U) Negative Normal NEG [facility] Comment on above: Performed By: #### U MICAO, UAX #### [address] [place], [place] 0063583 Podiatric Assistant: Patricio Kelley MD Spec. [place],Ur 1.015 Normal 1.010-1.020 [facility] Comment on above: Performed By: #### U MICAO, UAX #### [address] [place], [place] 4955983 Podiatric Assistant: Patricio Kelley MD Urobilinogen,Ur Normal Normal 0.0-1.0 [facility] Comment on above: Performed By: #### U MICAO, UAX #### [facility] [address] [place] [address] Dr. [place], [place] [phone] Podiatric Assistant: Patricio Kelley MD Urinalysis with Reflex to Cu ltureon 02-24-2025 Bilirubin Ql (U) Negative NEGATIVE [facility] Clarity (U) SLIGHTLY CLOUDY Abnormal Clear [facility] Color (U) [place] Abnormal Yellow [facility] Glucose Test strip (U) [Mass/Vol] Negative NEGATIVE mg/dL [facility] Hemoglobin Auto test strip Ql (U) Negative NEGATIVE [facility] Interpretation and review of laboratory results Abnormal [facility] Ketones (U) [Mass/Vol] Negative NEGATIVE mg/dL [facility] Leukocyte esterase Test strip Ql (U) Negative NEGATIVE [facility] Nitrite Ql (U) Negative NEGATIVE [facility] pH (U) 7.5 [pH] 5.0 - 9.0 [facility] Protein (U) [Mass/Vol] Negative NEGATIVE mg/dL [facility] Specific gravity (U) [Rel density] 1.015 1.010 - 1.020 [facility] Urobilinogen Qn (U) Normal 0.0 - 1.0 EU/dL [facility] Urinalysis,Microon 5 Amorphous sediment LM Ql (Urine sed) 2+ Abnormal [facility] Comment on above: Performed By: #### U MICAO, UAX #### [facility] [address] [place] [address] Podiatric Assistant: Patricio Kelley MD Bacteria TRACE Abnormal [facility] Comment on above: Performed By: #### U MICAO, UAX #### [facility] [address] [place] [address] Podiatric Assistant: Patricio Kelley MD Epithelial cells LM Ql (Urine sed) 2 TO 5 Normal 0-25 [facility] Comment on above: Performed By: #### U MICAO, UAX #### [facility] [address] [place] [address] Podiatric Assistant: Patricio Kelley MD Urine RBC's 0 TO 2 Normal 0-2 [facility] Comment on above: Performed By: #### U MICAO, UAX #### [facility] [address] [place] [address] Podiatric Assistant: Patricio Kelley MD Urine WBC's 0 TO 2 Normal 0-5 [facility] Comment on above: Performed By: #### U MICAO, UAX #### [facility] [address] [place] [address] Podiatric Assistant: Patricio Kelley MD 36on 02-16-2025 36 Spoke with patient raimundo ho was calling to request a echo at 24 weeks gestation scheduled. I informed her that we would be in touch once the order is placed and we are able to put her on the schedule to have this done. Patient is currently 20 weeks. Normal [facility] IGP,APTIMA HPV,AGE GDLNon AGE GDLN ACOG TESTING Note . [facility] Comment on above: TESTS RESULT FLAG UN ITS REF RANGE LAB Clinician Provided Cytology Information Source.............Cervix Other.............. No. of containers..01 ThinPrep Vial Age Algo ACOG Cecille... 29- FLAG LEGEND: L-Low Normal,H-High Normal,LL-Alert Low,HH-Alert High <-Panic Low,>-Panic High,A-Abnormal,AA-Critical Abnormal Performed at: 01 =[address] [place] [address] Jasmine Drew MD, HPV APTIMA Negative Negative [facility] Comment on above: This nucleic acid am plification test detects fourteen high- risk HPV types (16,18,31,33,35,39,45,51,52,56,58,59,66,68) without differentiation. Performed at: =[facility] [address], [place] [id number] Podiatric Assistant: Jasmine Drew MD, Phone: [phone] Performed at: - [address], [place] [id number] Podiatric Assistant: Jasmine Drew MD, Phone: [phone] IGP, APTIMA HPV, RFX 16/18,45 Note . [facility] Comment on above: TESTS RESULT FLAG UN ITS REF RANGE LAB DIAGNOSIS: 02 NEGATIVE FOR INTRAEPITHELIAL LESION OR MALIGNANCY. Specimen adequacy: 02 Satisfactory for evaluation. No endocervical component is identified. An endocervical component is not commonly seen in the patient. Performed by: Shahana Sanchez, Research Coordinator ([facility]) . 02 Note: Note 02 The [...] <-Panic Low,>-Panic High,A-Abnormal,AA-Critical Abnormal Performed at: [address] [address] Jasmine Drew MD, SPATULA-ALONE CERVIX CL[facility] Healthcar e RECURRENT VAGINITIS (HTRX)on 02-11-2025 ATOPOBIUM VAGINAE 0 [facility] ATOPOBIUM VAGINAE Not detected [facility] BVAB 2,3 (BACTERIAL VAGINOSIS ASSOCIATED BACTERIA 2, 3); MOBILUNCUS SPP 0 [facility] Healthcare BVAB 2,3 (BACTERIAL VAGINOSIS ASSOCIATED BACTERIA 2, 3); MOBILUNCUS SPP Not detected [facility] PATRICE ALBICANS, PARAPSILOSIS, TROPICALIS 0 [facility] PATRICE ALBICANS, PARAPSILOSIS, TROPICALIS Not detected [facility] PATRICE GLABRATA 0 [facility] PATRICE GLABRATA Not detected [facility] PATRICE KRUSEI 0 [facility] Healt hcare PATRICE KRUSEI Not detected [facility] CHLAMYDIA TRACHOMATIS 0 [facility] CHLAMYDIA TRACHOMATIS Not detected [facility] GARDNERELLA VAGINALIS 0 [facility] Healthcare GARDNERELLA VAGINALIS Not detected [facility] Healthcare MEGASPHAERA (TYPES 1, 2) 0 [facility] MEGASPHAERA (TYPES 1, 2) Not detected [facility] MYCOPLASMA GENITALIUM 0 [facility] MYCOPLASMA GENITALIUM Not detected [facility] NEISSERIA GONORRHOEAE 0 [facility] NEISSERIA GONORRHOEAE Not detected [facility] TRICHOMONAS VAGINALIS 0 [facility] TRICHOMONAS VAGINALIS Not detected [facility] Urinalysis macro (dipstick) panel (U)on 02-09-2025 Bilirubin, UA Negative Negative - 4(70) +++ mg/dL [facility] Blood, UA Negative Negative - 50 [place]/mcL [facility] Clarity, UA Clear [facility] Healthca re Color, UA Yellow [facility] Glucose, UA Negative Negative - 1999(110) ++++ mg/dL [facility] Interpretation and review of laboratory results Normal [facility] Healthca re Ketones, UA Negative Negative - 160(16) ++++ mg/dL [facility] Leukocytes, UA Negative Negative - 500+++ Yoni/mcL [facility] Nitrite, UA Negative Negative - Positive [facility] pH, UA 7.5 5 - 9 [facility] Healthcar e Protein, UA Negative Negative - 1999(20) ++++ mg/dL [facility] Spec Grav, UA 1.02 1 - 1.03 [facility] Urobilinogen, UA 0.2 0.2 - 12 mg/dL [facility] Health[facility] e Orders Onlyon 01-18-2025 Orders Only [id number] Rhiannon Ortiz 1995 F Date Provider Department Center 01/18/2025 [id number] CANNON RPW PED [employer] No family history on file Normal [facility] 37on 12-27-2024 37 Exam looks unchanged BP was excellent I can still hear the aortic valve stenosis and regurgitation Need your outpatient echo echo at 24 weeks Next wisit is 4.5 months Normal [facility] Office Visiton 12-27-2024 Follow-up visit [id number] Rhiannon Ortiz 1995 F Date Provider Department Center 12/27/2024 BLAYNE JORDAN RPW PED [employer] No family history on file Level of Service:28420 MO OFFICE/OP CONSLTJ NEW/EST PT HIGH MDM 55 MINUTES Reason for Visit and Comments: Follow-up [088519] pregnency [Other] - Congenital aortic stenosis /regurgitation Normal [facility] ALL CBC WITH AUTO DIFFon BASOPHILS ABSOLUTE AUTO 0 [facility] Basophils/100 WBC (Bld) 0.3 % 0.2 - 2.0 % [facility] Eosinophils/100 WBC (Bld) 0.7 % Low 0.9 - 7.0 % [facility] Erythrocyte distribution width (RBC) [Ratio] 12.2 % 11.0 - 15.0 % [facility] Hematocrit (Bld) [Volume fraction] 37.2 % 36.0 - 48.0 % [facility] Hemoglobin (Bld) [Mass/Vol] 12.8 g/dL 12.0 - 16.0 g/dL [facility] IMMATURE GRANULOCYTES ABS AUTO 0.04 High [facility] Immature granulocytes/100 WBC (Bld) 0.4 % 0.0 - 0.5 % [facility] Interpretation and review of laboratory results [facility] LYMPHOC[facility]TES ABSOLUTE AUTO 1.6 [facility] Lymphocytes/100 WBC (Bld) 15.3 % Low 20.5 - 60.0 % [facility] MCH (RBC) [Entitic mass] 27.4 pg 26.7 - 34.0 pg [facility] MCHC (RBC) [Mass/Vol] 34.4 g/dL 29.9 - 35.2 g/dL [facility] MCV (RBC) [Entitic vol] 79.7 fL Low 81.0 - 99.0 fL [facility] MONOCYTES ABSOLUTE AUTO 0.6 [facility] Monocytes/100 WBC (Bld) 5.4 % 1.7 - 12.0 % [facility] NEUTROPHILS ABSOLUTE AUTO 8.3 High [facility] Neutrophils/100 WBC (Bld) 77.9 % High 43.0 - 75.0 % [facility] Platelet mean volume (Bld) [Entitic vol] 11.6 fL 9.5 - 13.5 fL [facility] TBH EO # 0.1 [facility] Healthcar e TBH PLT 232 [facility] e TBH RBC 4.67 [facility] Healthcar e TBH WBC 10.7 [facility] Healthcar e CLINISYNC [facility] Healthcar e HCG ( test) Ql (U)o n 12-10-2024 Interpretation and review of laboratory results Abnormal [facility] re Preg Test, Ur Positive Negative [facility] e US OB TRANSVAGINALon 025 US [...] II, MD, PHD at 11-Dec-2024 07:22:45 AM [facility] Normal Not Available Comment on above: Order Comment: US OB TRANSVAGINAL No LMP recorded. Urinalysis macro (dipstick) panel (U)on 12-10-2024 Bilirubin, UA Negative Negative - 4(70) +++ mg/dL [facility] Blood, UA Negative Negative - 50 Stanford/mcL [facility] Clarity, UA Clear [facility] Healthca re Color, UA Yellow [facility] Healthcar e Glucose, UA Negative Negative - 1999(110) ++++ mg/dL [facility] Interpretation and review of laboratory results Normal [facility] re Ketones, UA Negative Negative - 160(16) ++++ mg/dL [facility] Leukocytes, UA Negative Negative - 500+++ Yoni/mcL [facility] Nitrite, UA Negative Negative - Positive [facility] pH, UA 5.5 5 - 9 [facility] e Protein, UA Negative Negative - 1999(20) ++++ mg/dL [facility] Spec Grav, UA 1.025 1 - 1.03 [facility] Urobilinogen, UA 0.2 0.2 - 12 mg/dL [facility] e MRI BRAIN W WO CONTRASTon MRI BRAIN W WO CONTRAST EXAMINATION: MRI OF THE BRAIN WITHOUT AND WITH CONTRAST 06/09/2024 12:35 pm TECHNIQUE: Multiplanar multisequence MRI of the head/brain was performed without and with the administration of intravenous contrast. COMPARISON: None. HISTORY: ORDERING SYSTEM PROVIDED HISTORY: Other specified abnormal findings of blood lurer PROVIDED HISTORY: STAT Creatinine as needed:->No FINDINGS: [...] Tristen Valdes MD 06/10/24 Final result Normal [facility] DHEAon 06-01-2024 DHEA 8.631 ng/mL High 1.330-7.780 [facility] Comment on above: Result Comment: (NOT E) INTERPRETIVE INFORMATION: Dehydroepiandrosterone, Females 18 years and older: Postmenopausal: 0.60-5.73 ng/mL REFERENCE INTERVAL: Dehydroepiandrosterone by TMS Access complete set of age- and/or gender-specific reference intervals for this test in the [facility] Test Directory ([employer]). This test was developed and its performance characteristics determined by [facility]. It has not been cleared or approved by the [place] Food and Drug Administration. This test was performed in a CLIA certified laboratory and is intended for clinical purposes. Performed By: [facility] [address] [place] [address] Fund Development Manager: John Maradiaga MD, PhD CLIA Number: [id number] Performed By: #### F SH, PROL, GLYHGB, LH, FT4, DHES ####[facility] [address] [place] [address] Lab Director: Eliecer Barreto MD#### ADHEA ####[facility] [place] [id number] Lab Director: Aguilar Ballard MD#### TSH, BHCG, CDP ####[facility] [place] [address] [place] [address] Lab Director: Patricio Kelley MD [...] Adonay Frank MD 05/29/24 Final result Normal [facility] US Pelvison 05-29-2024 1. Myometrial heterogeneity that could be seen with adenomyosis, incompletely evaluated due to lack of transvaginal imaging. 2. Normal transabdominal sonographic appearance of the ovaries. [facility] RIS CONSOLIDATED EXAMINATION: PELVIC ULTRASOUND 05/28/2024 9:17 [...] degree of vascularity. FREE FLUID: None visualized. [facility] Adonay Carreno MD - 05/29/2024 EXAMINATION: PELVIC [...] Normal transabdominal sonographic appearance of the ovaries. [facility] US PelvisOrdered By: Adonay Frank on 05-29-2024 [facility] Work Phone: US Pelvison 05-28-2024 Radiology Study observation (narrative) [facility]icus CBC with Auto Differentialon 05-27-2024 Basophils (Bld) [#/Vol] 0.04 10*3/uL [facility] Basophils/100 WBC (Bld) 0 % 0 - 2 % [facility] Eosinophils (Bld) [#/Vol] 0.30 10*3/uL [facility] Eosinophils/100 WBC (Bld) 3 % 1 - 4 % [facility] Erythrocyte distribution width (RBC) [Ratio] 12.7 % 11.8 - 14.4 % [facility] Hematocrit (Bld) [Volume fraction] 42.2 % 36.3 - 47.1 % [facility] Hemoglobin (Bld) [Mass/Vol] 14.5 g/dL 11.9 - 15.1 g/dL [facility] Immature granulocytes (Bld) [#/Vol] 0.04 10*3/uL [facility] Immature granulocytes/100 WBC (Bld) 0 % 0 [facility] Interpretation and review of laboratory results Abnormal [facility] Lymphocytes/100 WBC (Bld) 23 % Low 24 - 43 % [facility] Lymphocytes/100 WBC (Bld) 2.20 % [facility] MCH (RBC) [Entitic mass] 27.6 pg 25.2 - 33.5 pg [facility] MCHC (RBC) [Mass/Vol] 34.4 g/dL 28.4 - 34.8 g/dL [facility] MCV (RBC) [Entitic vol] 80.4 fL Low 82.6 - 102.9 fL [facility] Monocytes/100 WBC (Bld) 6 % 3 - 12 % [facility] Monocytes/100 WBC (Bld) 0.54 % [facility] Neutrophils/100 WBC (Bld) 68 % High 36 - 65 % [facility] Nucleated RBC/100 WBC (Bld) [Ratio] 0.0 % 0.0 per 100 WBC [facility] Platelet mean volume (Bld) [Entitic vol] 11.5 fL 8.1 - 13.5 fL [facility] Platelets (Bld) [#/Vol] 246 10*3/uL [facility] RBC (Bld) [#/Vol] 5.25 10*6/uL High 3.95 - 5.1 1 m/uL [facility] Segmented neutrophils/100 WBC (Bld) 6.39 % [facility] WBC other (Bld) [#/Vol] 9.5 [facility] CBC with Diffon 05-27-2024 Abs. Basophil 0.04 k/uL Normal 0.00-0.20 [facility] Comment on above: Performed By: #### F SH, PROL, GLYHGB, LH, FT4, DHES #### [facility] [address] [place] [address] Podiatric Assistant: Eliecer Barreto MD #### ADHEA #### [facility] [address] [place], [place] [id number] Podiatric Assistant: Aguilar Ballard MD #### BISHNU WILSON, CDP #### [address] [place], [place] [id number] Podiatric Assistant: Patricio Kelley MD Abs.Imm.Granulocyt e 0.04 k/uL Normal 0.00-0.30 [facility] Comment on above: Performed By: #### F SH, PROL, GLYHGB, LH, FT4, DHES #### [address] [id number] Podiatric Assistant: Eliecer Barreto MD #### ADHEA #### [facility] [address] [place], [place] [id number] Podiatric Assistant: Aguilar Ballard MD #### BISHNU WILSON, CDP #### [address] [place] [address] Podiatric Assistant: Patricio Kelley MD Abs.Neutrophil (Seg) 6.39 k/uL Normal 1.50-8.10 [facility] Comment on above: Performed By: #### F SH, PROL, GLYHGB, LH, FT4, DHES #### [address] [address] Podiatric Assistant: Eliecer Barreto MD #### ADHEA #### [facility] [address] [place], [place] [id number] Podiatric Assistant: Aguilar Ballard MD #### AMARI WILSONCG, CDP #### [address] [place] [address] Podiatric Assistant: Patricio Kelley MD Basophils/100 WBC (Bld) 0 % Normal 0-2 [facility] Comment on above: Performed By: #### F SH, PROL, GLYHGB, LH, FT4, DHES #### [address] [address] Podiatric Assistant: Eliecer Barreto MD #### ADHEA #### [facility] [address] [place] [address] Podiatric Assistant: Aguilar Ballard MD #### TSH, BHCG, CDP #### [address] [place], [place] [id number] Podiatric Assistant: Patricio Kelley MD Eosinophils (Bld) [#/Vol] 0.30 10*3/uL Normal 0.00-0.44 [facility] Comment on above: Performed By: #### F SH, PROL, GLYHGB, LH, FT4, DHES #### [address] [address] Podiatric Assistant: Eliecer Barreto MD #### ADHEA #### [facility] [address] [place] [id number] Podiatric Assistant: Aguilar Ballard MD #### TSH, BHCG, CDP #### [address] [place] [address] Podiatric Assistant: Patricio Kelley MD Eosinophils/100 WBC (Bld) 3 % Normal 1-4 [facility] Comment on above: Performed By: #### F SH, PROL, GLYHGB, LH, FT4, DHES #### [address] [address] Podiatric Assistant: Eliecer Barreto MD #### ADHEA #### [facility] [address] [place], [place] [id number] Podiatric Assistant: Aguilar Ballard MD #### TSH, BHCG, CDP #### [address] [place] [address] Podiatric Assistant: Patricio Kelley MD Erythrocyte distribution width (RBC) [Ratio] 12.7 % Normal 11.8-14.4 [facility] Comment on above: Performed By: #### F SH, PROL, GLYHGB, LH, FT4, DHES #### [address] [address] Podiatric Assistant: Eliecer Barreto MD #### ADHEA #### [facility] [address] [place], [place] [id number] Podiatric Assistant: Aguilar Ballard MD #### TSH, BHCG, CDP #### [facility] [address] [place] [address] Podiatric Assistant: Patricio Kelley MD Hematocrit (Bld) [Volume fraction] 42.2 % Normal 36.3-47.1 [facility] Comment on above: Performed By: #### F SH, PROL, GLYHGB, LH, FT4, DHES #### [address] [address] Podiatric Assistant: Eliecer Barreto MD #### ADHEA #### [facility] [address] [place] [address] Podiatric Assistant: Aguilar Ballard MD #### TSH, BHCG, CDP #### [address] [place] [address] Podiatric Assistant: Patricio Kelley MD Hemoglobin (Bld) [Mass/Vol] 14.5 g/dL Normal 11.9-15.1 [facility] Comment on above: Performed By: #### F SH, PROL, GLYHGB, LH, FT4, DHES #### [address] [address] Podiatric Assistant: Eliecer Barreto MD #### ADHEA #### [facility] [address] [place] [address] Podiatric Assistant: Aguilar Ballard MD #### TSH, BHCG, CDP #### [facility] [address] [place], [place] [id number] Podiatric Assistant: Patricio Kelley MD Immature granulocytes/100 WBC (Bld) 0 % Normal 0 [facility] Comment on above: Performed By: #### F SH, PROL, GLYHGB, LH, FT4, DHES #### [address] [address] Podiatric Assistant: Eliecer Barreto MD #### ADHEA #### [facility] [address] [place] [address] Podiatric Assistant: Aguilar Ballard MD #### TSH, BHCG, CDP #### [address] [place], [place] [id number] Podiatric Assistant: Patricio Kelley MD Lymphocytes (Bld) [#/Vol] 2.20 10*3/uL Normal 1.10-3.70 [facility] Comment on above: Performed By: #### F SH, PROL, GLYHGB, LH, FT4, DHES #### [address] [address] Podiatric Assistant: Eliecer Barreto MD #### ADHEA #### [facility] [address] [place], [place] [id number] Podiatric Assistant: Aguilar Ballard MD #### TSH, BHCG, CDP #### [facility] [address] [place] [address] [place], [place] [phone] Podiatric Assistant: Patricio Kelley MD Lymphocytes/100 WBC (Bld) 23 % Low 24-43 [facility] Comment on above: Performed By: #### F SH, PROL, GLYHGB, LH, FT4, DHES #### [facility] [address] [place] [address] Podiatric Assistant: Eliecer Barreto MD #### ADHEA #### [facility] [address] [place], [place] [id number] Podiatric Assistant: Aguilar Ballard MD #### TSH, BHCG, CDP #### [address] [place] [address] Podiatric Assistant: Patricio Kelley MD MCH (RBC) [Entitic mass] 27.6 pg Normal 25.2-33.5 [facility] Comment on above: Performed By: #### F SH, PROL, GLYHGB, LH, FT4, DHES #### [address] [place], [place] [id number] Podiatric Assistant: Eliecer Barreto MD #### ADHEA #### [facility] [address] [place], [place] [id number] Podiatric Assistant: Aguilar Ballard MD #### TSH, BHCG, CDP #### [address] [place] [address] Podiatric Assistant: Patricio Kelley MD MCHC (RBC) [Mass/Vol] 34.4 g/dL Normal 28.4-34.8 [facility] Comment on above: Performed By: #### F SH, PROL, GLYHGB, LH, FT4, DHES #### [address] [place], [place] [phone] Podiatric Assistant: Eliecer Barreto MD #### ADHEA #### [facility] [address] [place], [place] [id number] Podiatric Assistant: Aguilar Ballard MD #### TSH, BHCG, CDP #### [address] [place] [address] Podiatric Assistant: Patricio Kelley MD MCV (RBC) [Entitic vol] 80.4 fL Low 82.6-102.9 [facility] Comment on above: Performed By: #### F SH, PROL, GLYHGB, LH, FT4, DHES #### [address] [address] Podiatric Assistant: Eliecer Barreto MD #### ADHEA #### [facility] [address] [place], [place] [id number] Podiatric Assistant: Aguilar Ballard MD #### TSH, BHCG, CDP #### [facility] [address] [place], [place] [id number] Podiatric Assistant: Patricio Kelley MD Monocytes (Bld) [#/Vol] 0.54 10*3/uL Normal 0.10-1.20 [facility] Comment on above: Performed By: #### F SH, PROL, GLYHGB, LH, FT4, DHES #### [address] [address] Podiatric Assistant: Eliecer Barreto MD #### ADHEA #### [facility] [address] [place], [place] [id number] Podiatric Assistant: Aguilar Ballard MD #### TSH, BHCG, CDP #### [facility] [address] [place] [address] Podiatric Assistant: Patricio Kelley MD Monocytes/100 WBC (Bld) 6 % Normal 3-12 [facility] Comment on above: Performed By: #### F SH, PROL, GLYHGB, LH, FT4, DHES #### [address] [address] Podiatric Assistant: Eliecer Barreto MD #### ADHEA #### [facility] [address] [place] [address] Podiatric Assistant: Aguilar Ballard MD #### TSH, BHCG, CDP #### [facility] [address] [place], [place] [phone] Podiatric Assistant: Patricio Kelley MD Neutrophil (Seg) 68 % High 36-65 [facility] Comment on above: Performed By: #### F SH, PROL, GLYHGB, LH, FT4, DHES #### [facility] [address] [place] [address] Podiatric Assistant: Eliecer Barreto MD #### ADHEA #### [facility] [address] [place] [address] Podiatric Assistant: Aguilar Ballard MD #### TSH, BHCG, CDP #### [address] [place], [place] [phone] Podiatric Assistant: Patricio Kelley MD NRBC Automated 0.0 per 100 WBC Normal 0.0 [facility] Comment on above: Performed By: #### F SH, PROL, GLYHGB, LH, FT4, DHES #### [address] [address] Podiatric Assistant: Eliecer Barreto MD #### ADHEA #### [facility] [address] [place], [place] [id number] Podiatric Assistant: Aguilar Ballard MD #### MARIANN WILSONG, CDP #### [address] [place] [address] Podiatric Assistant: Patricio Kelley MD Platelet mean volume (Bld) [Entitic vol] 11.5 fL Normal 8.1-13.5 [facility] Comment on above: Performed By: #### F SH, PROL, GLYHGB, LH, FT4, DHES #### [address] [address] Podiatric Assistant: Eliecer Barreto MD #### ADHEA #### [facility] [address] [place], [place] [id number] Podiatric Assistant: Aguilar Ballard MD #### TSH, BHCG, CDP #### [address] [place] [address] Podiatric Assistant: Patricio Kelley MD Platelets (Bld) [#/Vol] 246 10*3/uL Normal 138-453 [facility] Comment on above: Performed By: #### F SH, PROL, GLYHGB, LH, FT4, DHES #### [address] [place] [address] Podiatric Assistant: Eliecer Barreto MD #### ADHEA #### [facility] [address] [place] [address] Podiatric Assistant: Aguilar Ballard MD #### TSH, BHCG, CDP #### [facility] [address] [place] [address] [place] [address] Podiatric Assistant: Patricio Kelley MD RBC (Bld) [#/Vol] 5.25 10*6/uL High 3.95-5.11 [facility] Comment on above: Performed By: #### F SH, PROL, GLYHGB, LH, FT4, DHES #### [address] [address] Podiatric Assistant: Eliecer Barreto MD #### ADHEA #### [facility] [address] [place] [address] Podiatric Assistant: Aguilar Ballard MD #### TSH, BHCG, CDP #### [facility] [address] [place] [address] [place], [place] [id number] Podiatric Assistant: Patricio Kelley MD WBC (Bld) [#/Vol] 9.5 10*3/uL Normal 3.5-11.3 [facility] Comment on above: Performed By: #### F SH, PROL, GLYHGB, LH, FT4, DHES #### [address] [address] Podiatric Assistant: Eliecer Barreto MD #### ADHEA #### [facility] [address] [place] [address] Podiatric Assistant: Aguilar Ballard MD #### TSH, BHCG, CDP #### [facility] [address] [place] [address] Podiatric Assistant: Patricio Kelley MD DHEA Sulfateon 05-27-2024 DHEA Sulfate 417.0 ug/dL High 98.8-340 [facility] Comment on above: Performed By: #### F SH, PROL, GLYHGB, LH, FT4, DHES ####[facility] [address] [place], [place] [address]655[address] Lab Director: Eliecer Barreto MD#### ADHEA ####[facility] [address] [place] [address] Lab Director: Aguilar Ballard MD#### STEVE, AMARICG, CDP ####[facility] [place] [address] Lab Director: Patricio Kelley MD DHEA-Sulfateon 05-27-2024 DHEA-S [Mass/Vol] 417.0 ug/dL High 98.8 - 340 ug/dL [facility] Interpretation and review of laboratory results Abnormal [facility] Follicle Stim. Hormon 2023 Follicle Stim. Horm 3.2 mIU/mL Normal [facility] Comment on above: Result Comment: Refe rence Range: Male: 1.5-12.4 Ovulating Female: Follicular Phase 3.5-12.5 Ovulation Phase 4.7-21.5 Luteal Phase 1.7-7.7 Postmenopausal Female: 25.8-134.8 Performed By: #### F SH, PROL, GLYHGB, LH, FT4, DHES ####[facility] [address] [place] [address] Lab Director: Eliecer Barreto MD#### ADHEA ####[facility] [address] [place] [address] Lab Director: Aguilar Ballard MD#### TSH, BHCG, CDP ####[facility] [place] [address] Lab Director: Patricio Kelley MD Follicle Stimulating Hormone on 05-27-2024 Follitropin Qn 3.2 m[IU]/mL mIU/mL [facility] Comment on above: Reference Range: Male: 1.5-12.4 Ovulating Female: Follicular Phase 3.5-12.5 Ovulation Phase 4.7-21.5 Luteal Phase 1.7-7.7 Postmenopausal Female: 25.8-134.8 HCG, Quanton 05-27-2024 HCG, Quant <1.0 Normal <5 [facility] Comment on above: Result Comment: Non-preg premeno <=5 Postmeno <=8 Male <=3 If HCG results do not concur with clinical observations, additional testing to confirm results is recommended. Performed By: #### F SH, PROL, GLYHGB, LH, FT4, DHES ####[facility] [address] [place], [place] [id number] Lab Director: Eliecer Barreto MD#### ADHEA ####[facility] [address] [place] [id number] Lab Director: Aguilar Ballard MD#### TSH, BHCG, CDP ####[facility] [place] [address] Lab Director: Patricio Kelley MD HCG, Quantitative, on 05-27-2024 HCG.beta subunit Qn NINF [facility] Comment on above: Non-preg premeno <=5 Postmeno <=8 Male <=3 If HCG results do not concur with clinical observations, additional testing to confirm results is recommended. Hemoglobin A1Con 05-27-2024 Average glucose Estimated from glycated hemoglobin (Bld) [Mass/Vol] 97 mg/dL [facility] Comment on above: The ADA and AACC rec ommend providing the estimated average glucose result to permit better patient understanding of their HBA1c result. HbA1c (Bld) [Mass fraction] 5.0 % 4.0 - 6.0 % [facility] Glucose [Mass/Vol] 97 mg/dL Normal [facility] Comment on above: Result Comment: The ADA and AACC recommend providing the estimated average glucose result to permit better patient understanding of their HBA1c result. Performed By: #### F SH, PROL, GLYHGB, LH, FT4, DHES ####[facility] [address] [place] [address] Lab Director: Eliecer Barreto MD#### ADHEA ####[facility] [address] [place], [place] [id number] lab Director: Aguilar Ballard MD#### TSH, BHCG, CDP ####[address] [place] [address] lab Director: Patricio Kelley MD HbA1c (Bld) [Mass fraction] 5.0 % Normal 4.0-6.0 [facility] Comment on above: Performed By: #### F SH, PROL, GLYHGB, LH, FT4, DHES ####[facility] [address] [place] [address] Lab Director: Eliecer Barreto MD#### ADHEA ####[facility] [address] [place] [id number] Lab Director: Aguilar Ballard MD#### TSH, BHCG, CDP ####[address] [place], [place] [id number] Lab Director: Patricio Kelley MD Luteinizing Hormoneon 2023 Interpretation and review of laboratory results Abnormal [facility] Lutropin Qn 11.0 m[IU]/mL High [facility] Comment on above: Reference Range: Male: 1.7-8.6 Ovulating Female: Follicular Phase 2.4-12.6 Ovulation Phase 14.0-95.6 Luteal Phase 1.0-11.4 Postmenopausal Female: 7.7-58.5 Luteinizing Hormone 11.0 mIU/mL High 1.7-8.6 [facility] Comment on above: Result Comment: Refe renxu Range: Male: 1.7-8.6 Ovulating Female: Follicular Phase 2.4-12.6 Ovulation Phase 14.0-95.6 Luteal Phase 1.0-11.4 Postmenopausal Female: 7.7-58.5 Performed By: #### F SH, PROL, GLYHGB, LH, FT4, DHES ####[facility] [address] [place] [address] Lab Director: Eliecer Barreto MD#### ADHEA ####[facility] [address] [place] [address] lab Director: Aguilar Ballard MD#### TSH, BHCG, CDP ####[facility] [place] [address] , [place] [address] Lab Director: Patricio Kelley MD No Panel Informationon 05-27 [facility] Prolactinon 05-27-2024 Interpretation and review of laboratory results Abnormal [facility] Prolactin [Mass/Vol] 37.70 ng/mL High 4.79 - 23.3 ng/mL [facility] Comment on above: The presence of macr oprolactin may cause interference in female patients with various endocrinological diseases or during . [facility] Prolactin 37.70 ng/mL High 4.79-23.3 [facility] Comment on above: Result Comment: The presence of macroprolactin may cause interference in female patients with various endocrinological diseases or during . Performed By: #### F SH, PROL, GLYHGB, LH, FT4, DHES ####[facility] [address] [place] [address] Lab Director: Eliecer Barreto MD#### ADHEA ####[facility] [address] [place] [address] Lab Director: Aguilar Ballard MD#### TSH, BHCG, CDP ####[address] [place] [address] Lab Director: Patricio Kelley MD T4, Freeon 05-27-2024 Free T4 [Mass/Vol] 1.5 ng/dL 0.92 - 1. 68 ng/dL [facility] TSHon 05-27-2024 TSH Qn 1.42 m[IU]/L [facility] Thyroid Stim. Horm.on 2023 Thyroid Stim. Horm. 1.42 uIU/mL Normal 0.30-5.00 [facility] Comment on above: Performed By: #### F SH, PROL, GLYHGB, LH, FT4, DHES ####[address] [place], [place] [id number] lab Director: Eliecer Barreto MD#### ADHEA ####[facility] [address] [place] [address] lab Director: Aguilar Ballard MD#### TSH, BHCG, CDP ####[address] [place] [address] lab Director: Patricio Kelley MD Thyroxine, Freeon 05-27-2024 Thyroxine, Free 1.5 ng/dL Normal 0.92-1.68 [facility] Comment on above: Performed By: #### F SH, PROL, GLYHGB, LH, FT4, DHES ####[facility] [address] [place], [place] [id number] lab Director: Eliecer Barreto MD#### ADHEA ####[facility] [address] [place] [address] lab Director: Aguilar Ballard MD#### TSH, BHCG, CDP ####[address] [place] [address] lab Director: Patricio Kelley MD NON OB TRANSVAGINALon US NON OB TRANSVAGINAL Table formatting from the original result was not included. Misha Metz on 02/09/2024 11:23 AM EDT UTERUS:anteverted, homogeneous echo pattern ENDO:7mm in thickness RT. OVARY:seen, multiple follicles visualized LT. OVARY:seen, complex finding (probable resolving cyst) noah- 1.9cm x 1.6cm x 1.4cm Interpreted by: Nickolas Swenson MD Signed by: Nickolas Swenson MD 02/09/24 Final result Normal [facility] US NON OB TRANSVAGINALon US NON [...] Nickolas Swenson MD 11/11/23 Final result Normal [facility] US NON OB TRANSVAGINALon US NON [...] Gisela Machado DO 08/20/23 Final result Normal [facility] Microscopic Urinalysison Epithelial Cells UA 0 TO 2 [facility] RBC clumps Auto (Urine sed) [#/Area] GREATER THAN 100 [employer] WBC, UA None BON Mercora BON Mercora , urineon 3 Beta HCG ( test) Ql (U) Negative NEGATIVE [facility] Comment on above: Specimens with hCG l evels near the threshold of the test (25 mIU/mL) may give a negative or indeterminate result. In such cases, another test should be performed with a new specimen in 48-72 hours. If early is suspected clinically in this setting, correlation with quantitative serum b-hCG level is suggested. [employer] has confirmed the use of plasma for this test. This has not been cleared or approved by the U.S. Food and Drug Administration. The FDA has determined that such clearance is not necessary. [facility] Urinalysison 01-19-2023 Bilirubin Urine Negative NEGATIVE [facility] Granicus Color, UA Yellow Yellow [facility] Glucose Auto test strip (U) [Mass/Vol] Negative NEGATIVE [facility] Interpretation and review of laboratory results Abnormal [facility] Ketones (U) [Mass/Vol] Negative NEGATIVE [facility] Leukocyte esterase Auto test strip Ql (U) Negative NEGATIVE [facility] Nitrite Auto test strip Ql (U) Negative NEGATIVE [facility] Protein (U) [Mass/Vol] 6.0 mg/dL 5.0 - 9.0 [facility] Protein (U) [Mass/Vol] Negative NEGATIVE [facility] Specific [place], UA High 1.010 - 1.020 [facility] Turbidity UA Clear Clear [facility] Urine Hgb 3+ Abnormal NEGATIVE [facility] Urobilinogen, Urine Normal Normal [facility] Wet Prep, Genitalon 01-20-20 Interpretation and review of laboratory results Abnormal [facility] Microorganism or agent identified Nom (Unsp spec) NO CLUE CELLS SEEN [facility] Microorganism or agent identified Nom (Unsp spec) NO YEAST OBSERVED [facility] Microorganism or agent identified Nom (Unsp spec) TRICHOMONAS Abnormal [facility] Specimen Description .[facility] CNPNon 11-29-[address] [facility] Telephone (REMIGIO) ----- ANGELEDGAR ([id number]) 1995 F Date Time Provider Department 11/29/21 [...] Fully Assessed Reason for Visit: Medication Question [8598] Prescriptions as of 11/29/2021 - Desmopressin Acetate (STIMATE) 150 mcg/spray (0.1 mL) spry Use 1 [place] in the nose as needed. - Desmopressin Acetate (STIMATE) 150 mcg/spray spry Use 1 [place] in the nose as needed. - Desmopressin Acetate (STIMATE) 150 mcg/spray [place] Use 1 [place] in the nose once daily as needed. [...] Status:Closed by ALBINO KILGORE on 11/29/21 Normal [facility] COVID-19, MOLECULARon 2020 SARS-CoV-2 (COVID-19) Ab IA Ql Not detected Normal Not Detected [facility] Comment on above: Result Comment: [...] at the following links: For Healthcare Providers: https://www.[employer].gov/media/718022/download For Patients: https://www.fda.gov/media/899198/download , Urineon 0 Beta HCG ( test) Ql (U) Negative NEGATIVE [facility] [place] [place] Comment on above: Specimens with hCG l evels near the threshold of the test (25 mIU/mL) may give a negative or indeterminate result. In such cases, another test should be performed with a new specimen in 48-72 hours. If early is suspected clinically in this setting, correlation with quantitative serum b-hCG level is suggested. [employer] has confirmed the use of plasma for this test. This has not been cleared or approved by the U.S. Food and Drug Administration. The FDA has determined that such clearance is not necessary. Urinalysis with Microscopico n 05-16-2020 Amorphous, UA NOT REPORTED None [facility] [place] Bacteria, UA NOT REPORTED None [facility] [place] Bilirubin Urine Negative NEGATIVE [facility] [place] Casts UA NOT REPORTED /[facility]F [facility] [place] Color, UA YELLOW YELLOW [facility] Crystals, UA NOT REPORTED None /[facility] [place] Epithelial Cells UA 0 TO 2 [facility] Glucose, Ur Negative NEGATIVE [facility] [place] Interpretation and review of laboratory results Abnormal [facility], [place] Ketones Ql (U) Negative NEGATIVE [facility], [place] Leukocyte esterase Test strip Ql (U) Negative NEGATIVE [facility] Mucus, UA NOT REPORTED None [facility], [place] Nitrite, Urine Negative NEGATIVE [facility] Other Observations UA NOT REPORTED NOT REQ. [facility], [place] pH, UA 7.0 [facility] Protein (U) [Mass/Vol] Negative NEGATIVE [facility] RBC (U) [#/Vol] None [facility] [place] [place] Renal Epithelial, UA NOT REPORTED 0 /HPF [facility], [place] Specific [place], UA <1.005 Low [facility], [place] Trichomonas, UA NOT REPORTED None [facility]- [place], [place] Turbidity UA CLEAR CLEAR [facility], [place] Urinalysis Comments NOT REPORTED [facility], [place] Urine Hgb Negative NEGATIVE [facility] Urobilinogen, Urine Normal Normal [facility] WBC, UA 0 TO 2 [facility] Yeast, UA NOT REPORTED None [facility], [place] - [facility], [place] Otheron 12-01-2019 Evidence of mild bronchitis or atypical infection in the lingula. Workstation ID: [id number] [facility] EXAMINATION: XR CHES T AP/PA AND LAT [...] No consolidation. No pleural effusion or pneumothorax. [facility] Interface, Rad In Fu ji Speechq - [...] infection in the lingula. Workstation ID: [id number] [facility] POC INFLUENZA A/B MOLECULARo n 10-18-2019 FLUAV Ag Ql (Nph) Negative Negative [facility] FLUBV Ag Ql (Nph) Positive Abnormal Negative [facility] Interpretation and review of laboratory results Abnormal [facility] Vital Signs Date Time Vital Sign Value Performing Clinician Faci lity 05-10-2025 14:13-0400 Body mass index (BMI) [Ratio] 36.95 kg/m2 Leyla [place] PA Work Phone: [facility] 05-10-2025 14:13-0400 Body weight 91.63 kg Leyla [place] PA Work Phone: [facility] 05-10-2025 14:13-0400 Diastolic blood pressure 74 mm[Hg] Leyla [place] PA Work Phone: [facility] 05-10-2025 14:13-0400 Systolic blood pressure 120 mm[Hg] Leyla [place] PA Work Phone: [facility] 04-19-2025 11:45-0400 Body mass index (BMI) [Ratio] 36.58 kg/m2 Leyla [place] PA Work Phone: [facility] 04-19-2025 11:45-0400 Body weight 90.72 kg Leyla Shaka PA Work Phone: [facility] 04-19-2025 11:45-0400 Diastolic blood pressure 74 mm[Hg] Leyla [place] PA Work Phone: [facility] 04-19-2025 11:45-0400 Systolic blood pressure 122 mm[Hg] Leyla Shaka PA Work Phone: [facility] 03-14-2025 13:41-0400 Body mass index (BMI) [Ratio] 36.03 kg/m2 Jung Ama DO Work Phone: [facility] 03-14-2025 13:41-0400 Body weight 89.36 kg Jung Ama DO Work Phone: [facility] 03-14-2025 13:41-0400 Diastolic blood pressure 72 mm[Hg] Jung Ama DO Work Phone: [facility] 03-14-2025 13:41-0400 Systolic blood pressure 114 mm[Hg] Jung Ama DO Work Phone: [facility] 02-24-2025 22:25-0400 Body mass index (BMI) [Ratio] 36.21 kg/m2 Fior Mendez DO [facility] 02-24-2025 22:25-0400 Body temperature 97.9 [degF] Fior Mendez DO Work Phone: [facility] 02-24-2025 22:25-0400 Body weight 89.81 kg Fior Mendez DO Work [facility]: [facility] 02-24-2025 22:25-0400 Diastolic blood pressure 90 mm[Hg] Fior Mendez DO Work Phone: [facility] 02-24-2025 22:25-0400 Heart rate 79 /min Fior Mendez DO Work Phone: [facility] 02-24-2025 22:25-0400 Respiratory rate 17 /min Fior Mendez DO Work Phone: [facility] 02-24-2025 22:25-0400 SaO2% (BldA) [Mass fraction] 99 % Fior Mendez DO Work [facility] 02-24-2025 22:25-0400 Systolic blood pressure 134 mm[Hg] Fior Mendez DO Work Phone: [facility] 02-09-2025 17:14-0400 Body mass index (BMI) [Ratio] 35.45 kg/m2 Brian Shore ORGANIZATIONAL CONSULTANT Work Phone: [facility] 02-09-2025 17:14-0400 Body weight 87.91 kg Brian Mone ORGANIZATIONAL CONSULTANT Work Phone: [facility] 02-09-2025 17:14-0400 Diastolic blood pressure 70 mm[Hg] Brian Mone ORGANIZATIONAL CONSULTANT Work Phone: [facility] 02-09-2025 17:14-0400 Systolic blood pressure 110 mm[Hg] Brian Mone ORGANIZATIONAL CONSULTANT Work Phone: [facility] 01-06-2025 10:06-0400 Body mass index (BMI) [Ratio] 34.9 kg/m2 Jung Ama DO Work Phone: [facility] 01-06-2025 10:06-0400 Body weight 86.55 kg Jung Ama DO Work Phone: [facility] 01-06-2025 10:06-0400 Diastolic blood pressure 74 mm[Hg] Jung Ama DO Work Phone: [facility] 01-06-2025 10:06-0400 Systolic blood pressure 116 mm[Hg] Jung Ama DO Work Phone: [facility] 12-10-2024 10:31-0500 Body mass index (BMI) [Ratio] 34.5 kg/m2 Noms Nurse [facility] 12-10-2024 10:31-0500 Body weight 85.55 kg Noms Nurse [facility] 12-10-2024 10:31-0500 Diastolic blood pressure 70 mm[Hg] Noms Nurse [facility] 12-10-2024 10:31-0500 Systolic blood pressure 120 mm[Hg] Noms Nurse [facility] 06-02-2024 13:03-0400 Body height 157.5 cm Jung Ama DO Work Phone: [facility] 06-02-2024 13:03-0400 Body mass index (BMI) [Ratio] 36.03 kg/m2 Jung Ama DO Work Phone: [facility] 06-02-2024 13:03-0400 Body weight 89.36 kg Jung Ama DO Work Phone: [facility] 06-02-2024 13:03-0400 Diastolic blood pressure 72 mm[Hg] Jung Morrowo DO Work Phone: [facility] 06-02-2024 13:03-0400 Systolic blood pressure 118 mm[Hg] Jung Morrowo DO Work Phone: [facility] 01-19-2023 21:23-0400 Body mass index (BMI) [Ratio] 33.84 kg/m2 Fior Mendez DO Work Phone: [facility] [employer] 01-19-2023 21:23-0400 Body temperature 97 [degF] Fior Churchbal DO Work Phone: [facility] 01-19-2023 21:23-0400 Body weight 83.92 kg Fior Churchbal DO Work Phone: [facility] 01-19-2023 21:23-0400 Diastolic blood pressure 95 mm[Hg] Fior Churchbal DO Work Phone: [facility] [employer] 01-19-2023 21:23-0400 Heart rate 87 /min Fior Churchbal DO Work Phone: [facility] 01-19-2023 21:23-0400 Respiratory rate 16 /min Fior Churchbal DO Work Phone: [facility] 01-19-2023 21:23-0400 SaO2% (BldA) [Mass fraction] 98 % Fior Churchbal DO Work Phone: [facility] [employer] 01-19-2023 21:23-0400 Systolic blood pressure 144 mm[Hg] Fior Churchbal DO Work Phone: [facility] 09-30-2020 12:52-0500 BP Diastolic 84 mm[Hg] [facility] Blood [facility] 09-30-2020 12:52-0500 BP Systolic 131 mm[Hg] [facility] Blood [facility] 09-30-2020 12:48-0500 BMI (Body Mass Index) 38.19 kg/m2 [facility] 09-30-2020 12:48-0500 Body weight 94.71 kg [facility] 09-30-2020 12:48-0500 Height 157.5 cm [facility] 09-30-2020 12:48-0500 Pulse (Heart Rate) 72 /min [facility] 09-30-2020 12:48-0500 Pulse Oximetry 98 % [facility] 09-30-2020 12:48-0500 Respiratory Rate 16 /min [facility] 08-11-2020 13:14-0400 Body Temperature 98.2 [degF] [place], [place] 08-11-2020 13:14-0400 BP Diastolic 99 mm[Hg] [place], [place] 08-11-2020 13:14-0400 BP Systolic 132 mm[Hg] [place] 08-11-2020 13:14-0400 Pulse (Heart Rate) 66 /min [place] 08-11-2020 13:14-0400 Pulse Oximetry 100 % [place], [place] 08-11-2020 13:14-0400 Respiratory Rate 16 /min [place], [place] 03-23-2020 20:39-0400 BMI (Body Mass Index) 40.79 kg/m2 [facility] 03-23-2020 20:39-0400 Body Temperature 98.01 [degF] Arielle [facility] 03-23-2020 20:39-0400 Body weight 101.15 kg Arielle [facility] 03-23-2020 20:39-0400 BP Diastolic 78 mm[Hg] Arielle [facility] 03-23-2020 20:39-0400 BP Systolic 116 mm[Hg] [facility] 03-23-2020 20:39-0400 Height 157.5 cm Arielle [facility] 03-23-2020 20:39-0400 Pulse (Heart Rate) 80 /min Arielle [facility] 03-23-2020 20:39-0400 Pulse Oximetry 98 % Arielle [facility] 03-23-2020 20:39-0400 Respiratory Rate 16 /min Ariellenicholas Ventura [facility] 12-01-2019 14:38-0500 BMI (Body Mass Index) 40.16 kg/m2 Gloria Fatima [facility] 12-01-2019 14:38-0500 Body Temperature 97 [degF] Gloria Fatima [facility] 12-01-2019 14:38-0500 Body weight 100.25 kg Gloria Fatima [facility] 12-01-2019 14:38-0500 BP Diastolic 85 mm[Hg] Gloria Fatima [facility] 12-01-2019 14:38-0500 BP Systolic 129 mm[Hg] [facility] 12-[facility]-2019 14:38-0500 Pulse (Heart Rate) 76 /min Gloria Fatima [facility] 12-01-2019 14:38-0500 Pulse Oximetry 97 % [facility] 12-01-2019 14:38-0500 Respiratory Rate 16 /min Gloria Fatima [facility] 10-18-2019 11:13-0500 BMI (Body Mass Index) 38.85 kg/m2 Arielle [facility] 10-18-2019 11:13-0500 Body Temperature 98.29 [degF] [facility] 10-18-2019 11:13-0500 Body weight 96.98 kg Arielle [facility] 10-18-2019 11:13-0500 BP Diastolic 80 mm[Hg] Arielle [facility] 10-18-2019 11:13-0500 BP Systolic 128 mm[Hg] Arielle [facility] 10-18-2019 11:13-0500 Pulse (Heart Rate) 102 /min [facility] 10-18-2019 11:13-0500 Pulse Oximetry 99 % [facility] 10-18-2019 11:13-0500 Respiratory Rate 17 /min Ariellenicholas Ventura [facility] 07-06-2019 12:59-0400 BMI (Body Mass Index) 38.12 kg/m2 Bertha Irving [facility] 07-06-2019 12:59-0400 Body Temperature 100.29 [degF] Bertha Irving [facility] 07-06-2019 12:59-0400 Body weight 95.17 kg Bertha Irving [facility] 07-06-2019 12:59-0400 BP Diastolic 79 mm[Hg] Bertha Irving [facility] 07-06-2019 12:59-0400 BP Systolic 138 mm[Hg] Bertha Irving [facility] 07-06-2019 12:59-0400 Height 158 cm Bertha Irving [facility] 07-06-2019 12:59-0400 Pulse (Heart Rate) 80 /min Bertha Irving [facility] 07-06-2019 12:59-0400 Pulse Oximetry 98 % Bertha Irving [facility] 07-06-2019 12:59-0400 Respiratory Rate 16 /min Bertha Snow [facility] 06-21-2019 20:08-0400 BP Diastolic 107 mm[Hg] [facility] 06-21-2019 20:08-0400 BP Systolic 147 mm[Hg] [facility] 06-21-2019 19:24-0400 BMI (Body Mass Index) 38.23 kg/m2 [facility] 06-21-2019 19:24-0400 Body Temperature 98.49 [degF] [facility] 06-21-2019 19:24-0400 Body weight 94.8 kg [facility] 06-21-2019 19:24-0400 Pulse (Heart Rate) 66 /min [facility] 06-21-2019 19:24-0400 Pulse Oximetry 100 % [facility] 06-21-2019 19:24-0400 Respiratory Rate 14 /min [facility] Encounters Encounter Date Encounter Type Care Provider Facility Start: 05-10-2025 End: 05-10-2025 Bamboo flowsheet Leyla JURADO Work Phone: [facility] Start: 05-10-2025 End: 05-10-2025 Bamboo flowsheet Leyla JURADO Work Phone: [facility] Start: 05-10-2025 End: 05-10-2025 Clinisync Result Encounter Generic External Data Provider [facility] External Department Unsolicited Start: 05-10-2025 End: 05-10-2025 Office outpatient visit 15 minutes Leyla JURADO Work Phone: [facility] Comment on above: Third trimester preg star ([facility]); 31 weeks gestation of ([facility]) Start: 05-10-2025 End: 05-10-2025 ambulatory LEYLA MATT Not Available Start: 05-03-2025 End: 05-03-2025 Clinisync Result Encounter Generic External Data Provider [facility] External Department Unsolicited Start: 05-03-2025 End: 05-03-2025 Clinisync Result Encounter Generic External Data Provider [facility] External Department Unsolicited Start: 05-02-2025 End: 05-02-2025 ambulatory BLAYNE SMALLS [facility] Start: 04-22-2025 End: 04-22-2025 Clinisync Result Encounter [...] on above: 28 weeks gestation o f ([facility]); Von Willebrand disease ([facility]); Aortic valve stenosis, etiology of cardiac valve disease unspecified Start: 03-30-2025 End: 03-30-2025 ambulatory BLAYNE Faria SMALLS [facility] Start: 03-22-2025 End: 03-22-2025 Clinisync Result Encounter Jung Ama DO Work Phone: [facility] External Department Unsolicited Start: 03-22-2025 End: 03-22-2025 Clinisync Result Encounter Jung Ama DO Work Phone: [facility] External Department Unsolicited Start: 03-22-2025 End: 03-22-2025 [facility] Start: 03-22-2025 End: 03-22-2025 Subsequent hospital visit by physician Joi Lewis MD Work Phone: [facility] Start: 03-19-2025 End: 03-19-2025 ambulatory [facility] Start: 03-19-2025 End: 03-19-2025 Subsequent hospital visit by physician Joi Lewis MD Work Phone: [facility] Start: 03-14-2025 End: 03-14-2025 Office outpatient visit 15 minutes Jung Ama DO Work Phone: [facility] Comment on above: Second trimester pre gnancy; 23 weeks gestation of ; Diabetes mellitus screening Start: 03-14-2025 End: 03-14-2025 ambulatory JUNG AMA Not Available Start: 03-09-2025 End: 03-09-2025 ambulatory [facility] Start: 02-24-2025 End: 02-25-2025 Emergency department patient visit Fior Mendez DO Work Phone: [facility] Emergency Department Comment on above: Headache [...] encounter procedure Brian Shore NP Work Phone: [facility] Start: 02-09-2025 End: 02-09-2025 Bamboo flowsheet Brian Shore ORGANIZATIONAL CONSULTANT Work Phone: [facility] Start: 02-09-2025 End: 02-14-2025 Bamboo flowsheet Brian Shore NP Work Phone: [facility] Start: 02-09-2025 End: 02-14-2025 Clinisync Result Encounter Generic External Data Provider [facility] External Department Unsolicited Start: 02-09-2025 End: 02-11-2025 External Result Encounter Brian Shore ORGANIZATIONAL CONSULTANT Work Phone: [facility] External Department Unsolicited Start: 01-17-2025 End: 01-17-2025 Telephone encounter Yessica Richardson LPN [facility] Start: 01-14-2025 End: 01-14-2025 ambulatory [facility] Start: 01-06-2025 End: 01-06-2025 Office outpatient visit 15 minutes Jung Ama DO Work Phone: [facility] Comment on above: Second trimester pre gnancy; 14 weeks gestation of ; Von Willebrand disease (CMS/HCC); Aortic stenosis due to bicuspid aortic valve Start: 01-06-2025 End: 01-06-2025 ambulatory JUNG AMA Not Available Start: 12-27-2024 End: 12-27-2024 ambulatory [facility] Start: 12-10-2024 End: 12-10-2024 Clinisync Result Encounter [...] Start: 06-09-2024 End: 06-11-2024 ambulatory JOI LEWIS [facility] Start: 06-02-2024 End: 06-02-2024 Bamboo flowsheet Jung Ama DO Work Phone: [facility] Start: 06-02-2024 End: 06-02-2024 Bamboo flowsheet Jung Ama DO Work Phone: [facility] Start: 06-02-2024 End: 06-02-2024 Office outpatient visit 15 minutes Jung Ama DO Work Phone: [facility] Comment on above: Preop examination; PCOS (polycystic ovarian syndrome); Dyspareunia in female; Abnormal uterine bleeding (AUB); Hormone imbalance; Elevated prolactin level; Pelvic pain in female Start: 06-02-2024 End: 06-02-2024 Preprocedural examination done Jung Ama DO Work Phone: [facility] Start: 06-02-2024 End: 06-02-2024 ambulatory JUNG AMA Not Available Start: 05-28-2024 End: 05-30-2024 ambulatory [facility] Start: 05-28-2024 End: 05-30-2024 Subsequent hospital visit by physician [facility] Ultrasound Room [facility] Ultrasound Comment on above: Dyspareunia, female; Abnormal uterine bleeding Start: 05-27-2024 End: 05-27-2024 ambulatory [facility] Start: 05-27-2024 End: 05-27-2024 Subsequent hospital visit by physician Joi Lewis MD Work Phone: [facility] Start: 05-18-2024 End: 05-18-2024 ambulatory JUNG AMA Not Available Start: 02-09-2024 End: 02-09-2024 ambulatory [facility] Start: 2023 End: 2023 ambulatory [facility] Start: 08-18-2023 End: 08-18-2023 ambulatory [facility] Start: 01-19-2023 End: 01-19-2023 Emergency department patient visit Fior Mendez DO Work Phone: [facility] ED Comment on above: Vaginal itching (Liz driss Dx) Start: 02-22-2021 End: 02-22-2021 ambulatory [facility] Start: 12-13-2020 End: 12-13-2020 Orders Only Anne Colón Work Phone: [facility] Start: 09-30-2020 End: 09-30-2020 ambulatory [facility] Start: 09-30-2020 End: 09-30-2020 Office outpatient visit 15 minutes Veronica Sanford Blood Work Phone: [facility] Comment on above: Impetigo (Primary Dx ) Start: 08-11-2020 End: 08-11-2020 Emergency department patient visit Shannan Solitario Work Phone: [facility] ED Comment on above: Acute rhinitis (Prim lisbet Dx) Start: 05-16-2020 End: 05-16-2020 Subsequent hospital visit by physician Joi ANNA Laboratory Start: 03-23-2020 End: 03-23-2020 ambulatory [facility] Start: 03-23-2020 End: 03-23-2020 Office outpatient visit 15 minutes Arielle Ventura [facility] Comment on above: Post-nasal drip (Liz driss Dx); Cough Start: 01-21-2020 End: 01-21-2020 Documentation procedure Bertha Merchant Work Phone: [facility] [place] Start: 12-01-2019 End: 12-01-2019 Subsequent hospital visit by physician Gloria Fatima Work Phone: [facility]gent [facility] Comment on above: Bronchitis Start: 12-01-2019 End: 12-01-2019 Office outpatient visit 15 minutes Gloria Fatima Work Phone: [facility] Comment on above: Lower respiratory tr act infection (Primary Dx) Start: 10-18-2019 End: 10-18-2019 Office outpatient visit 15 minutes Arielle Ventura Work Phone: [facility] Comment on above: Influenza B (Primary Dx) Start: 07-06-2019 End: 07-06-2019 Office outpatient visit 15 minutes Bertha Irving Work Phone: [facility] Comment on above: Bronchitis (Primary Dx); Dermatitis Start: 06-21-2019 End: 06-21-2019 Office outpatient new 30 minutes Sun Min Mehul Work Phone: [facility] Comment on above: Sunburn (Primary Dx) Start: 10-02-2018 Patient encounter procedure ANDREA PARADA [facility] Ambulatory Procedures Date Procedure Procedure Detail Performing Clinician Start: 05-10-2025 OB BPP W NON-STRESS Generic External Data Provider Start: 05-03-2025 US OB BPP W NON-STRESS Generic External Data Provider Start: 04-22-2025 US OB GROWTH Generic Ex ternal Data Provider Start: 04-19-2025 Urnls dip stick/tabl et rgnt non-auto w/o micrscp Leyla JURADO Work Phone: Start: 03-22-2025 ALL CBC WITH AUTO DIFF Generic External Data Provider Start: 03-22-2025 Blood count complete automated Jung Serrato MD Work Phone: Start: 03-14-2025 Urnls [...] Start: 02-09-2025 RECURRENT VAGINITIS (HTRX) Brian Shore ORGANIZATIONAL CONSULTANT Work Phone: Start: 02-09-2025 Urnls dip stick/tabl et rgnt non-auto w/o micrscp Brian Shore ORGANIZATIONAL CONSULTANT Work Phone: Start: 02-09-2025 IGP,APTIMA HPV,AGE GDLN Brian Shore ORGANIZATIONAL CONSULTANT Work Phone: Start: 02-09-2025 Microscopic observat ion [...] wet beth nt nfct agt Fior Acuna Mendez DO Work Phone: Start: 01-19-2023 Urinalysis microscopic only Fior Mendez DO Work Phone: Start: 01-19-2023 Urnls dip stick/tabl et rgnt auto w/o microscopy Fior Mendez DO Work Phone: Start: 05-16-2020 Urine [...] Screening for malign ant neoplasm of cervix [facility] Start: 01-14-2026 Adult BMI Screening Adult BMI Screen [facility] Start: 06-13-2025 Influenza vaccination [facility] Start: 06-13-2025 Respiratory Syncytia l Virus (RSV) or age 60 yrs+ (1 - Risk 1-dose series) Respiratory Syncytial Virus (RSV) or age 60 yrs+ (1 - Risk 1-dose series) [facility] Start: 05-24-2025 End: 05-24-2025 Patient encounter procedure 05/24/2025 1:20 PM EDT Routine [facility] [place] [facility] [address] [place] [phone] Jung Serrato, [address] [place] [address] [facility] Start: 05-13-2025 Influenza vaccination Flu vacc ine (Season Ended) [facility] Start: 05-10-2025 End: 05-10-2025 Patient encounter procedure 05/10/2025 1:50 PM EDT Routine [facility] [address] [place] [phone] Leyla Matt PA [address] [place] [address] [facility] Start: 05-03-2025 End: 05-03-2025 Patient encounter procedure 05/03/2025 10:40 AM EDT Routine [facility] [address] [place] [phone] Jugn Serrato, DO [address] [place] [address] [facility] Start: 04-19-2025 End: 10-20-2025 US biophysical profile w non stress test US biophysical profile w non stress test Imaging Routine Von Willebrand disease (HCC) Aortic valve stenosis, etiology of cardiac valve disease unspecified Expected: 04/19/2025 (Approximate), Expires: 10/20/2025 [facility] Work Phone: Comment on above: Expected: 04/19/2025 (Approximate), Expires: 10/20/2025 Start: 04-19-2025 End: 08-20-2025 US for US OB follow up transabdominal approach Imaging Routine Von Willebrand disease (HCC) Aortic valve stenosis, etiology of cardiac valve disease unspecified Expected: 04/19/2025 (Approximate), Expires: 08/20/2025 [facility] Comment on above: Expected: 04/19/2025 (Approximate), Expires: 08/20/2025 Start: 04-12-2025 End: 04-12-2025 Patient encounter procedure 04/12/2025 1:30 PM EDT Routine [facility] [address] [phone] Leyla Mtat PA [address] [place] [address] [facility] Start: 04-06-2025 Tdap Vaccine during Tdap Vaccine during [facility] Start: 03-14-2025 End: 03-14-2026 CBC panel - Blood by Automated count CBC Lab Routine Diabetes mellitus screening Expected: 03/14/2025 (Approximate), Expires: 03/14/2026 [facility] Work Phone: Comment on above: Expected: 03/14/2025 (Approximate), Expires: 03/14/2026 Start: 03-14-2025 End: 03-14-2026 Measurement of glucose 1 hour after glucose challenge for glucose tolerance test Glucose tolerance, 1 hour Lab Routine Diabetes mellitus screening Expected: 03/14/2025 (Approximate), Expires: 03/14/2026 [facility] Comment on above: Expected: 03/14/2025 (Approximate), Expires: 03/14/2026 Start: 03-08-2025 End: 03-08-2025 Patient encounter procedure 03/08/2025 2:20 PM EDT Routine [facility] [address] [facility] [place] [address] Jung Serrato, DO [address] [place], [place] [address] [address] [facility] Start: 02-09-2025 End: 03-11-2025 Alpha fetoprotein, maternal Alpha fetoprotein, maternal Lab Routine 19 weeks gestation of Second trimester Expected: 02/09/2025 (Approximate), Expires: 03/11/2025 [facility] Comment on above: Expected: 02/09/2025 (Approximate), Expires: 03/11/2025 Start: 02-07-2025 Depression Screen Depression Screen [facility] Start: 02-07-2025 End: 02-07-2025 Patient encounter procedure 02/07/2025 11:30 AM EDT Routine [facility] [address] [facility] [place] [phone] Leyla Matt PA [address] [place], [place] [address] [address] [facility] Start: 01-06-2025 End: 01-06-2025 Patient encounter procedure 01/06/2025 9:40 AM EDT Routine [facility] [address] [place] [phone] Jung Serrato, DO [address] [place] [address] [facility] Start: 12-10-2024 End: 12-10-2025 ABO/Rh ABO/Rh Lab Routine Missed menses , unspecified gestational age Expected: 12/10/2024 (Approximate), Expires: 12/10/2025 [facility] Comment on above: Expected: 12/10/2024 (Approximate), Expires: 12/10/2025 Start: 12-10-2024 End: 12-10-2025 Blood type and Indirect antibody screen panel - Blood Type and screen Lab Routine Missed menses , unspecified gestational age Expected: 12/10/2024 (Approximate), Expires: 12/10/2025 [facility] Comment on above: Expected: 12/10/2024 (Approximate), Expires: 12/10/2025 Start: 12-10-2024 End: 12-10-2025 Drugs of abuse panel - Urine by Screen method Rapid drug screen, urine Lab Routine , unspecified gestational age Encounter for supervision of normal first in first trimester Expected: 12/10/2024 (Approximate), Expires: 12/10/2025 [facility] Comment on above: Expected: 12/10/2024 (Approximate), Expires: 12/10/2025 Start: 12-09-2024 End: 12-09-2025 US Pelvis transvaginal US OB transvaginal Imaging Routine Missed menses Expected: 12/09/2024, Expires: 12/09/2025 [facility] Work Phone: Comment on above: Expected: 12/09/2024 , Expires: 12/09/2025 Start: 2024 Screening for malign ant neoplasm of cervix [facility] Start: 07-02-2024 End: 07-02-2024 Patient encounter procedure 07/02/2024 8:30 AM EDT Procedure Visit [facility] Jung Serrato, [address] [place] [address] [facility] Start: 06-13-2024 COVID-19 Vaccine ( season) COVID-19 Vaccine ( season) [facility] Start: 06-13-2024 Influenza vaccination Influenza Vacc ine (#1) [facility] Start: 06-02-2024 End: 06-02-2025 MR Brain WO and W contrast IV MR brain w and wo contrast routine Imaging Routine Elevated prolactin level Expected: 06/02/2024 (Approximate), Expires: 06/02/2025 [facility] Healthcare Work Phone: Comment on above: Expected: 06/02/2024 (Approximate), Expires: 06/02/2025 Start: 06-02-2024 End: 06-02-2024 Patient encounter procedure 06/02/2024 1:00 PM EDT Consult [facility] [address] [address] Jung Serrato DO [address] [place] [address] Arrived [facility] Comment on above: Arrived Start: 05-28-2024 End: 05-28-2024 Patient encounter procedure 05/28/2024 9:00 PM EDT Appointment [facility] [address] [place] [id number] [facility] Comment on above: [facility] W PT Start: 05-13-2024 Influenza vaccination Flu vaccine (# 1) [facility] Start: 06-13-2023 COVID-19 Vaccine ( season) COVID-19 Vaccine ( season) [facility] Start: 05-13-2023 Influenza vaccination Flu vacc ine (Season Ended) [facility] Start: 08-18-2021 Screening for malign ant neoplasm of cervix PAP SMEAR [facility] Healthcare Start: 06-13-2020 Influenza vaccination Flu vaccine (# 1) [place] Start: 06-13-2020 Influenza vaccinatio n given [facility] Start: 04-11-2020 Influenza vaccinatio n given SEQUENTIAL INFLUENZA VACCINE (#1) [facility] Comment on above: Postponed from 06/13 (Patient Ill Today) Start: 06-13-2019 Influenza vaccinatio n given SEQUENTIAL INFLUENZA VACCINE (#1) [facility] Start: 04-28-2017 DTaP,Tdap and Td Vaccines (7 - Td or Tdap) DTaP,Tdap and Td Vaccines (7 - Td or Tdap) [facility] Start: 04-28-2017 DTaP/Tdap/Td vaccine (7 - Td or Tdap) DTaP/Tdap/Td vaccine (7 - Td or Tdap) [facility] Start: 04-28-2017 Tetanus vaccination [facility] Start: 2015 Screening for malign ant neoplasm of cervix [facility] Start: 2013 DTaP/Tdap/Td vaccine (1 - Tdap) DTaP/Tdap/Td vaccine (1 - Tdap) [facility] Start: 2013 Hepatitis B vaccine (1 of 3 - 19+ 3-dose series) Hepatitis B vaccine (1 of 3 - 19+ 3-dose series) [facility] Start: 2012 Adult BMI Follow Up Plan Adult BMI Follow Up Plan [facility] Start: 2012 Hepatitis C antibody , confirmatory test Hepatitis C Screening [facility] Start: 2010 COVID-19 Vaccine (1 of 2) COVID-19 Vaccine (1 of 2) [facility] Start: 2009 HIV screening HIV Screening [facility] Start: 2007 Varicella vaccine (1 of 2 - 13+ 2-dose series) Varicella vaccine (1 of 2 - 13+ 2-dose series) [facility] Start: 2006 Adolescent depressio n screening assessment [facility] Start: 2006 Depression Screen Depression Screen [facility] Start: 2006 Tobacco Screening Tobacco Screening [facility] Start: 2005 HPV vaccine (1 - 2-d ose series) HPV vaccine (1 - 2-dose series) [place] Start: 1997 History and physical examination, annual for health maintenance Wellness Visit [facility] Start: 1995 Varicella vaccine (1 of 2 - 2-dose childhood series) Varicella vaccine (1 of 2 - 2-dose childhood series) [facility] Start: 05-10-1995 COVID-19 Vaccine (#1) COVID-19 Vacci ne (#1) [facility] Start: 1994 Depression screening using PHQ-9 (Patient Health Questionnaire 9) score DEPRESSION SCREENING (PHQ9) [facility] Start: 1994 Screening for Chlamy mc trachomatis Chlamydia Screening [facility] Bacteria identified in Urine by Culture Urine culture Microbiology Routine Missed menses Ordered: 12/10/2024 [facility] Comment on above: Ordered: 12/10/2024 End: 01-19-2023 C.trachomatis N.gonorrhoeae DNA [employer] Phone: Comment on above: One Time for 1 Occur rences starting 01/19/2023 until 01/19/2023 End: 05-16-2020 C.trachomatis N.gonorrhoeae DNA, Urine C.trachomatis N.gonorrhoeae DNA, Urine Microbiology Routine Once for 1 Occurrences starting 05/16/2020 until 05/16/2020 [facility] Comment on above: Once for 1 Occurrenc es starting 05/16/2020 until 05/16/2020 C.trachomatis N.gonorrhoeae DNA, Urine C.trachomatis N.gonorrhoeae DNA, Urine Microbiology Routine 05/16/2020 12:28 PM EDT [place] CBC W Auto Different ial panel - Blood CBC and differential Lab Routine Missed menses , unspecified gestational age Ordered: 12/10/2024 [facility] Comment on above: Ordered: 12/10/2024 CHLAMYDIA TRACHOMATI S (GENITO/STI) CHLAMYDIA TRACHOMATIS (GENITO/STI) Lab Routine Exposure to STD Ordered: 02/09/2025 [facility] Comment on above: Ordered: 02/09/2025 End: 01-19-2023 Culture, Urine [facility] Phone: Comment on above: One Time for 1 Occur rences starting 01/19/2023 until 01/19/2023 Cytology Cervical or vaginal smear or scraping study Pap Smear Pathology and Cytology Routine Well woman exam with routine gynecological exam Ordered: 02/09/2025 [facility] Comment on above: Ordered: 02/09/2025 End: 05-27-2024 DHEA [employer] Phone: Comment on above: Once for 1 Occurrenc es starting 05/27/2024 until 05/27/2024 Hemoglobin A1c/Hemoglobin.total in Blood Hemoglobin A1c Lab Routine Missed menses , unspecified gestational age Ordered: 12/10/2024 [facility] Comment on above: Ordered: 12/10/2024 Hepatitis B virus surface Ag [Presence] in Serum or Plasma by Immunoassay Hepatitis B surface antigen Lab Routine Missed menses , unspecified gestational age Ordered: 12/10/2024 [facility] Comment on above: Ordered: 12/10/2024 Hepatitis C virus Ab [Presence] in Serum or Plasma by Immunoassay Hepatitis C antibody Lab Routine Missed menses , unspecified gestational age Ordered: 12/10/2024 [facility] Comment on above: Ordered: 12/10/2024 HIV-1/HIV-2 antigen/antibody combination immunoassay HIV-1 and HIV-2 antibodies Lab Routine Missed menses , unspecified gestational age Ordered: 12/10/2024 [facility] Comment on above: Ordered: 12/10/2024 Human papilloma viru s DNA [Presence] in Unspecified specimen by Probe with amplification HPV DNA probe, amplified Microbiology Routine Well woman exam with routine gynecological exam Ordered: 02/09/2025 [facility] Comment on above: Ordered: 02/09/2025 Neisseria gonorrhoea e DNA [Presence] in Unspecified specimen by YULIANA with probe detection Neisseria gonorrhea DNA probe, direct Lab Routine Exposure to STD Ordered: 02/09/2025 [facility] Comment on above: Ordered: 02/09/2025 Reagin Ab [Presence] in Serum by RPR RPR Lab Routine Missed menses , unspecified gestational age Ordered: 12/10/2024 [facility] Comment on above: Ordered: 12/10/2024 Rubella antibody, IgG Rubella an tibody, IgG Lab Routine Missed menses , unspecified gestational age Ordered: 12/10/2024 [facility] Comment on above: Ordered: 12/10/2024 SURESWAB(R) ADVANCED VAGINITIS PLUS, TMA SURESWAB(R) ADVANCED VAGINITIS PLUS, TMA Pathology and Cytology Routine Vaginal discharge Ordered: 02/09/2025 [facility] Work Phone: Comment on above: Ordered: 02/09/2025 US Pelvis transvaginal US OB tra nsvaginal Imaging Routine Missed menses 12/10/2024 9:57 AM EST [facility] Immunizations Immunization Date Immunization Notes Care Provider Shayne renee 06-10-2012 influenza virus vacc ine, unspecified formulation Jung Serrato DO Work Phone: [facility] Payers Date Payer Category Payer Medicaid [id number] 2024 Medicaid [id number] 2017 Unknown [employer] xxxxxxxxxxxx 2017-Present [id number] 2017 Unknown [employer] [id number] 2017-Present [id number] 2015 Unknown [id number] 1994 Unknown [id number] 2.16.840.1.594802.3.579.2.903 1994 Unknown [id number] 2.16.840.1.465577.3.579.2.903 1994 Unknown [id number] 2.16.840.1.993872.3.579.2.903 1994 Unknown [id number] 2.16.840.1.172293.3.579.2.903 1994 Unknown [id number] 2.16.840.1.278761.3.579.2.175 1994 Unknown [id number] 2.16.840.1.361015.3.579.2.175 1994 Unknown [id number] 2.16.840.1.673713.3.579.2.175 1994 Unknown [id number] 2.16.840.1.844336.3.579.2.173 1994 Unknown [id number] 2.16.840.1.659639.3.579.2.173 1994 Unknown [id number] 2.16.840.1.394041.3.579.2.173 1994 Unknown [id number] 2.16.840.1.465298.3.579.2.173 1994 Unknown [id number] 2.16.840.1.047624.3.579.2.173 1994 Unknown [id number] 2.16.840.1.873870.3.579.2.173 1994 Unknown [id number] 2.16.840.1.000428.3.579.2.173 1994 Unknown [id number] 2.16.840.1.776908.3.579.2.128 6 1994 Unknown [id number] 2.16.840.1.836536.3.579.2.128 6 1994 Unknown [id number] 2.16.840.1.659362.3.579.2.128 6 1994 Unknown [id number] 2.16.840.1.721640.3.579.2.125 9 1994 Unknown [id number] 2.16.840.1.614930.3.579.2.125 9 1994 Unknown [id number] 2.16.840.1.080444.3.579.2.125 9 1994 Unknown [id number] 2.16.840.1.503258.3.579.2.125 9 1994 Unknown [id number] 2.16.840.1.803602.3.579.2.125 9 1994 Unknown [id number] 2.16.840.1.154800.3.579.2.125 9 1994 Unknown [id number] 2.16.840.1.926113.3.579.2.125 9 1994 Unknown [id number] 2.16.840.1.739121.3.579.2.125 9 1994 Unknown [id number] 2.16.840.1.237573.3.579.2.125 9 Social History Date Type Detail Facility Start: 06-21-2019 End: 2023 Tobacco smoking status NHIS Never smoker [employer] Start: 06-21-2019 End: 09-30-2020 Alcohol intake Current non-drinker of alcohol (finding) [facility] Start: 1995 Sex Assigned At Not on file [facility] Start: 01-09-2023 End: 01-19-2023 Exposure to SARS-CoV-2 (event) Not sure [facility] Start: 05-16-2020 End: 2023 Tobacco use and exposure Never used [employer] Start: 05-16-2020 End: 02-15-2024 Alcohol intake Current drinker of alcohol (finding) [facility] Start: 06-19-2014 Alcohol Comment Socially [place] [email or web address] [place] Start: 01-20-2023 History SDOH Alcohol Frequency 1 [employer] Work Phone: Start: 01-20-2023 History SDOH Alcohol Std Drinks 0 [employer] Work Phone: Start: 06-23-2023 End: 08-18-2023 History of Social function [employer] Start: 06-23-2023 End: 08-18-2023 Alcohol Use Disorder Identification Test - Consumption [AUDIT-C] [employer] How often to you hav e a drink containing alcohol? Never [employer] How many standard dr inks containing alcohol do you have on a typical day? Patient does not drink [employer] (I/We) worried wheth er (my/our) food would run out before (I/we) got money to buy more. Never true [facility] [facility] consumption unknown [facility] Start: 10-13-2024 [facility] Start: 10-20-2022 End: 02-24-2025 Alcoholic beverage intake Ex-drinker (finding) [facility] Start: 11-22-2012 End: 05-18-2015 Sex Female (finding) [facility] Functional Status Date Assessment Result Facility [facility] Clinical Notes 01-19-2023 to 05-10-2025 Vicki Siddiqui MA - 05/10/2025 1:50 PM RHIANNON Gomez - 04/19/2025 11:00 AM Hilario MuñozersSTEFF - 03/14/2025 1:30 PM EDTDischarge InstructionsAttachNevaeh De Leon LPN - 12/10/2024 10:00 AM EST Note Date & Type Note Facility 05-10-2025 History of Presen t illness Narrative Reason [...] valve stenosis 01/06/2025 14 weeks gestation of ([facility]) 01/06/2025 Second trimester ([facility]) 01/06/2025 Von Willebrand disease (HCC) 01/06/2025 [...] Vitals: Estimated body mass index is 36.95 kg/m as calculated from the following: Height as of 06/02/24: 5' 2 . Weight as of this encounter: 202 lb. BP: 120/74 Patient's last menstrual period was 09/29/2024. ASSESSMENT & PLAN ICD-10-CM 1. Third trimester ([facility]) Z34.93 CANCELED: POCT urinalysis dipstick manually resulted 2. 31 weeks gestation of ([facility]) Z3A.31 Return OB: Patient presents today [...] of: RHIANNON Bar documented in this encounter [facility] 05-02-2025 Note Joi Lewis MD [address] [facility] [id number] May 02, 2025 Patient: Edgar Ortiz Date [...] 2025 and she will be delivering at [facility]. 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 Improving her hydration has helped [...] normal biventricular systolic function. Normal PFO with [id number] shunt an (more content not included)... [facility] 04-19-2025 History of Presen t illness Narrative [...] valve stenosis 01/06/2025 14 weeks gestation of ([facility]) 01/06/2025 Second trimester ([facility]) 01/06/2025 Von Willebrand disease (HCC) [...] PLAN ICD-10-CM 1. 28 weeks gestation of ([facility]) Z3A.28 POCT urinalysis dipstick manually resulted 2. Von Willebrand disease ([facility]) D68.00 US biophysical profile w non stress [...] and Growth US q4 to schedule at [facility]. Orders Placed This Encounter Procedures US biophysical profile w non stress test US OB follow up transabdominal approach POCT urinalysis dipstick manually resulted Follow Up: Patient is to return to office in 3 week for routine OB appointment. Documented by Vicki Siddiqui MA on behalf of: RHIANNON Bar documented in this encounter [facility] 03-14-2025 History of Presen t illness Narrative [...] Jung Serrato DO documented in this encounter [facility] 02-25-2025 Hospital Discharg e instructions Fior Mendez [...] attachments cannot be sent through Care Everywhere.Headache ([place])documented in this encounter [facility] 02-09-2025 History of Presen t illness Narrative [...] nursing note reviewed. Exam conducted with a client application support specialist present. Vitals: Estimated body mass index is [...] Brian Shore NP documented in this encounter [facility] 01-17-2025 Miscellaneous Notes Notified office we are unable to see because we don't take her insurance. documented in this encounter [facility] 01-17-2025 Telephone encounter Note Notified office we are unable to see because we don't take her insurance. [facility] 01-06-2025 History of Presen t illness Narrative [...] 01/06/2025 Second trimester 01/06/2025 Von Willebrand disease ([facility]) 01/06/2025 Resolved Ambulatory Problems Diagnosis Date Noted [...] nursing note reviewed. Exam conducted with a client application support specialist present. Vitals: Estimated body mass index is 34.9 kg/m as calculated from the following: Height as of 06/02/24: 5' 2 . Weight as of this encounter: 190 lb 12.8 oz. BP: 116/74 Patient's last menstrual period was 09/29/2024. ASSESSMENT & PLAN ICD-10-CM 1. Second trimester Z34.92 2. 14 weeks gestation of Z3A.14 3. Von Willebrand disease (CMS/HCC) D68.00 4. Aortic stenosis due to bicuspid [...] or undercooked meat, and stay away from [facility]. Patient has been consulted regarding any further do's and don'ts of . Patient voiced understanding and all questions and concerns were answered. Patient to have referral to [facility] for Aortic Stenosis and Von Willebrand. Patient voiced her current Item Processing Clerk Dr. Smalls will perform a cardiac workup as well & follow patient throughout as well. Follow Up: Patient is to return in 4 weeks for routine OB appointment. Documented by Sanjana Monaco LPN on behalf of: Jung Serrato DO documented in this encounter [facility] 12-27-2024 Note Joi Lewis MD [address] [facility] [address] December 27, 2024 Patient: Edgar Ortiz Date [...] does have care with Dr. Serrato in [facility]. She has been on her vitamins and [...] no paternal history of congenital heart disease. Payge is not drinking or smoking tobacco. Current [...] her last evaluat (more content not included)... [facility] 12-10-2024 History of Presen t illness Narrative [...] or undercooked meat, and stay away from [facility]. Patient has also been advised to not change litter boxes and eat 6 small meals a day. Patient has been consulted regarding the do's and don'ts of . Patient was given labs and all questions and concerns were answered. Patient will do Hensel labs. Patient was sent script for Valtrex [...] De Leon LPN documented in this encounter [facility] 06-02-2024 History of Presen t illness Narrative Reason for Appointment: Patient ID: Edgar Ortiz is a 28 y.o. female who presents for Pre-op Visit Patient presents today for Pre Op appointment. Patient is scheduled to undergo Diagnostic Laparoscopy, possible MARY, possible FOE, possible BSO on 07/02/[address] Serrato at [facility]. MEDICATIONS No current outpatient medications [...] nursing note reviewed. Exam conducted with a client application support specialist present. Vitals: Estimated body mass index is [...] reviewed, and patient is to proceed to [facility] OR. Follow Up: Patient is to follow up between 1-2 weeks post operative to assess proper healing and recovery from procedure. Documented by Christie Ricks LPN on behalf of: Jung Serrato DO documented in this encounter [facility] 01-19-2023 Hospital Discharg e instructions Fior Mendez DO - 01/19/2023 11:23 PM EDT Take the Diflucan as prescribed. Flagyl for possible bacterial vaginosis. We will give you a call if any of the STD swabs come back positive otherwise make sure to follow-up with your atg architect regarding the lesion on your cervix in the next few days. If you have any concerns or questions regarding your care today, please discuss with your nurse or physician prior to leaving the emergency department. Thank you for allowing us to take care of you at [facility]. In the next few days you may receive a survey by mail or e-mail asking about the care you received during this visit. Please complete this if you are able, as this feedback helps us provide the best care possible. The following attachments cannot be sent through Care Everywhere.Vaginal Yeast Infection ([place] Island[place])documented in this encounter [facility] Phone: Evaluation note Diagnosis Vaginal itching- Primary Pruritus of genital organs documented in this encounter [facility] Phone: evaluation note* Diagnosis Dyspareunia, female Dyspareunia Abnormal uterine bleeding Unspecified disorder of menstruation and other abnormal bleeding from female genital tract documented in this encounter [facility]* Diagnosis Preop examination Unspecified pre-operative examination PCOS (polycystic ovarian syndrome) Polycystic ovaries Dyspareunia in female Abnormal uterine bleeding (AUB) Hormone imbalance Elevated prolactin level Pelvic pain in female Unspecified symptom associated with female genital organs [facility] Diagnosis Missed menses , unspecified gestational age Encounter for supervision of normal first in first trimester Cold sore Herpes simplex without mention of complication [facility]* Diagnosis Second trimester state, incidental 14 weeks gestation of Von Willebrand disease (CMS/HCC) Von Willebrand's disease Aortic stenosis due to bicuspid aortic valve [facility]* Diagnosis 19 weeks gestation of Second trimester state, incidental Well woman exam with routine gynecological exam Routine gynecological examination Screening, , for anatomic survey Encounter for anatomic survey Vaginal discharge Leukorrhea, not specified as infective Exposure to STD [facility]* Diagnosis Headache in , antepartum, second trimester- Primary documented in [facility] encounter [facility]* Diagnosis Second trimester state, incidental 23 weeks gestation of Diabetes mellitus screening Screening for diabetes mellitus documented [facility]* Diagnosis 28 weeks gestation of (HHS-HCC) Von Willebrand disease (HCC) Von Willebrand's disease Aortic valve stenosis, etiology of cardiac valve disease unspecified [facility]* Diagnosis Third trimester (HHS-HCC) state, incidental 31 weeks gestation of (HHS-HCC) documented in this encounter [facility]ructionsNot on filedocumented [facility] * Patient Instructions* Andra Carver [...] Log into your personal health record on https://[employer].Authentic Response and enter Z939 in the Education box to learn more about Sunburn: Care Instructions. Current as of: July 05, 2018 Content Version: 12.1 1059-8452 [employer]. Care instructions adapted under license by your healthcare professional. If you have questions about a medical condition or this instruction, always ask your healthcare professional. [employer] disclaims any warranty or liability for your [...] medicine. Get some extra rest. Take an fqsi-jfq-dtagpzp pain medicine, such as acetaminophen (Tylenol), ibuprofen (Advil, Motrin),or naproxen (Aleve) to reduce fever and relieve body aches. Read and follow all instructions on thelabel. Do not take two or more pain medicines at the same time unless the doctor told you to. Many pain medicines have acetaminophen, which is Tylenol. Too much acetaminophen (Tylenol) can be harmful. Take an kicm-fzr-zoxfbqz cough medicine that contains dextromethorphan to help [...] Log into your personal health record on https://[employer]hentic Response and enter H333 in the Education box to learn more about Bronchitis: Care Instructions. Current as of: June 17, 2018 Content Version: 12.20057981-6334 [employer]. Care instructions adapted under license by your healthcare professional. If you have questions about a medical condition or this instruction, always ask your healthcare professional. [employer] disclaims any warranty or liability for your [...] amount of fluids you drink. Take an hsdl-lih-vnztyac pain medicine if needed, such as acetaminophen [...] or plain hard candy. ? Take an fbrc-hro-vfujnyj cough medicine that contains dextromethorphan to help [...] Log into your personal health record on https://[employer]hentic Response and enter L652 in the Education box to learn more about Influenza (Flu): Care Instructions. Current as of: March 21, 2019 Content Version: 12.3 3435-5867 [employer]. Care instructions adapted under license by your healthcare professional. If you have questions about a medical condition or this instruction, always ask your healthcare professional. [employer] disclaims any warranty or liability for your [...] chances of quitting for good. Take an wnhq-gom-iikeewn pain medicine, such as acetaminophen (Tylenol), ibuprofen [...] Log into your personal health record on https://[employer]BoxC and enter D336 in the Education box to learn more about Pneumonia: Care Instructions. Current as of: March 21, 2019 Content Version: 12.3 7448-6223 [employer]. Care instructions adapted under license by your healthcare professional. If you have questions about a medical condition or this instruction, always ask your healthcare professional. [employer] disclaims any warranty or liability for your [...] Log into your personal health record on https://[employer].Authentic Response and enter D279 in the Education box to learn more about Cough: Care Instructions. Current as of: March 21, 2019 Content Version: 12.3 2965-8180 [employer]. Care instructions adapted under license by your healthcare professional. If you have questions about a medical condition or this instruction, always ask your healthcare professional. [employer] disclaims any warranty or liability for your use of this information. documented in this encounter* Patient Instructions* Veronica Kuo DO - 09/30/2020 1:14 PM EST Impetigo: Care Instructions Your Care Instructions Impetigo (say wh-vkn-OH-go ) is a skin infection caused by [...] Log into your personal health record on https://[employer] Serviceshart.[facility] hospitalPodcast [facility] and enter S909 in the Education box to learn more about Impetigo: Care Instructions. Current as of: March 08, 2020 Content Version: 12.7 [employer]. Care instructions adapted under license by your healthcare professional. If you have questions about a medical condition or this instruction, always ask your healthcare professional. [employer] disclaims any warranty or liability for your use of this information. documented in this encounter History of Present Illness * Andra Carver PA-C - 06/21/2019 8:00 PM EDT PATIENT NAME: Edgar Ortiz [facility] [address] [facility] [facility] [address] [place] [address] : 1995 DATE OF VISIT: 06/21/2019 #: [...] file Gets together: Not on file Attends latter-day service: Not on file Active member of club or organization: Not on file Attends meetings of clubs or organizations: Not on file Relationship status: Not on file Other Topics Concern Not on file Social History Narrative Lives with boyfriend. 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 FAMILY HISTORY [...] 1:11 PM EDT PATIENT NAME: Edgar Ortiz [facility] [address] [place] [id number] : 1995 DATE OF VISIT: 07/06/2019 SS#: [...] file Gets together: Not on file Attends latter-day service: Not on file Active member of club or organization: Not on file Attends meetings of clubs or organizations: Not on file Relationship status: Not on file Other Topics Concern Not on file Social History Narrative Lives with boyfriend. 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 FAMILY HISTORY [...] 11:35 AM EST PATIENT NAME: Edgar Ortiz [facility] [address] [facility] [id number] : 1995 DATE OF VISIT: 10/18/2019 #: [...] file Gets together: Not on file Attends latter-day service: Not on file Active member of club or organization: Not on file Attends meetings of clubs or organizations: Not on file Relationship status: Not on file Other Topics Concern Not on file Social History Narrative Lives with boyfriend. 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 FAMILY HISTORY [...] Molecular oseltamivir (Tamiflu) 75 MG capsule pyrilamine-dextromethorphan ([place] DM) 7.5-7.5 mg/5 mL Liqd ipratropium (ATROVENT) [...] 5 days . 10 capsule 0 pyrilamine-dextromethorphan ([place] DM) 7.5-7.5 mg/5 mL Liqd Take 10 [...] 8:48 PM EDT PATIENT NAME: Edgar Ortiz [facility] [address] [place] [address] : 1995 DATE OF VISIT: 03/23/2020 SS#: [id number] PROVIDER: Arielle Ventura PA-C Chief Complaint [...] file Gets together: Not on file Attends latter-day service: Not on file Active member of club or organization: Not on file Attends meetings of clubs or organizations: Not on file Relationship status: Not on file Other Topics Concern Not on file Social History Narrative Lives with boyfriend. 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 FAMILY HISTORY [...] on 03/23/2020 .) 22 g 0 pyrilamine-dextromethorphan ([place] DM) 7.5-7.5 mg/5 mL Liqd Take 10 [...] on 03/23/2020 .) 22 g 0 pyrilamine-dextromethorphan ([place] DM) 7.5-7.5 mg/5 mL Liqd Take 10 [...] - 09/30/2020 1:00 PM EST Patient Name: [facility] Location: [address] [address] Date Of : Date Of Visit: 1995 09/30/2020 MRN# Provider: [id number] Veronica Sanford DO Ayaan Chief Complaint Patient presents with Rash [...] Care Instructions Your Care Instructions Impetigo (say uk-pgo-ZW-go ) is a skin infection caused by [...] Log into your personal health record on https://[employer].Authentic Response and enter S909 in the Education box to learn more about Impetigo: Care Instructions. Current as of: March 08, 2020 Content Version: 12.7 [employer]. Care instructions adapted under license by your healthcare professional. If you have questions about a medical condition or this instruction, always ask your healthcare professional. [employer] disclaims any warranty or liability for your [...] FoundDocuments on File Type Date Recorded Patient Acquisitions Logistics Analyst Expl anation Advance Directives and Living Will Documents on File Type Date Recorded Patient Acquisitions Logistics Analyst Expl anation Advance Directives and Living Will Power of Math Coach Documents on File Type Date Recorded Patient Acquisitions Logistics Analyst Expl anation ACP-Advance Directive ACP-Power of Math Coach Summary Purpose Family History No Family History Records FoundNo Family History Records FoundNo Family History Records FoundNo Family History Records FoundNo Family History Records FoundNo Family History Records FoundNo Family History Records FoundNo Family History Records Found Discharge Instructions * Instructions* Shannan Solitario MD - 08/11/2020 Tylenol and/or Motrin for any fevers or discomfort. Use Afrin daily as directed for 3 days. Hrkv-osu-qjotlvq Claritin or Zyrtec daily while symptoms persist. [...] PELVIS COMPLETE Jung Serrato MD [address] [place] [address] Referral ID Status Reason Start Date Expiration Date Visits Re quested Visits Authorized [id number] Open 05/27/2024 05/27/2025 1 1 Specialty Diagnoses / Procedures Referred By Jhonny t Referred To Contact Diagnoses Elevated prolactin level Procedures MR brain w and wo contrast routine Jung Serrato, DO [address] [place] [address] Referral ID Status Reason Start Date Expiration Date V isits Requested Visits Authorized [id number] Pending Review 06/02/2024 11/29/2024 1 1 Additional [...] PELVIS COMPLETE Jung Serrato MD [address] [place] [address] Referral ID Status Reason Start Date Expiration Date Visits Re quested Visits Authorized [id number] Open 05/27/2024 05/27/2025 1 1 Reason Comments [...] section and content) DATE CREATED AUTHOR 07/19/2019 [facility] DATE CREATED AUTHOR AUTHOR'S ORGANIZ ATION 02/25/2021 [facility] DATE CREATED AUTHOR AUTHOR'S ORGANIZ ATION 01/04/2022 [facility] DATE CREATED AUTHOR AUTHOR'S ORGANIZ ATION 02/10/2024 [facility] DATE CREATED AUTHOR AUTHOR'S ORGANIZ ATION 03/23/2025 [facility] DATE CREATED AUTHOR AUTHOR'S ORGANIZ ATION 04/02/2025 [facility] DATE CREATED AUTHOR AUTHOR'S ORGANIZ ATION 05/04/2025 [facility] DATE CREATED AUTHOR AUTHOR'S ORGANIZ ATION 05/12/2025 [facility] EPIC Ordered Prescriptions (unrec ognized section and content) [...] (unrecognized section and content) Medication Order 01/17/2023 01/18/202301/19/2023 fluconazole (DIFLUCAN) tablet 200 mg (COMPLETED) 200 [...] RN) Scheduled Medication Order 02/23/2025 02/24/2025 02/25/2025 avxnrufatk-yvhyesqmjlufm-qc ffeine (FIORICET, ESGIC) per tablet 1 tablet (COMPLETED) 1 tablet, Oral, ONCE, 1 dose, On Caitlin 02/24/25 at 2315, Maximum dose of acetaminophen is 4000 mg from all sources in 24 hours. 2317 (Given - Provider: Yulia Hernandez RN) sodium [...] minutes 2318 (New Bag - Provider: Yulia Hernandez RN) 0021 (Stopped - Provider: Yulia Hernandez RN) Care Teams (unrecognized sec tion and content) Operational Risk Manager Relationship Specialty Start Date End Date Joi Lewis PCP - General 01/23/16 Operational Risk Manager Relationship Specialty Start Date End Date Joi Lewis MD PCP - General 01/23/16 Operational Risk Manager Relationship Specialty Start Date End Date Joi Lewis MD PCP - General 01/23/16 Operational Risk Manager Relationship Specialty Start Date End Date Joi Lewis MD [address] [place] [address] PCP - General Internal Medicine 02/18/23 Operational Risk Manager Relationship Specialty Start Date End Date Joi Lewis MD [address] [place] [address] PCP - General Internal Medicine 02/18/23 Operational Risk Manager Relationship Specialty Start Date End Date Joi Lewis MD [address] [place] [address] PCP - General Internal Medicine 02/18/23 Operational Risk Manager Relationship Specialty Start Date End Date Joi Lewis MD [address] [place] [address] PCP - General Internal Medicine 02/18/23 Operational Risk Manager Relationship Specialty Start Date End Date Joi Lewis MD [address] [place] [address] PCP - General Internal Medicine 02/18/23 Operational Risk Manager Relationship Specialty Start Date End Date Joi Lewis MD [address] [facility] [place] [address] PCP - General 04/29/18 Operational Risk Manager Relationship Specialty Start Date End Date Joi Lewis MD [address] [place] [address] PCP - General Internal Medicine 02/18/23 Operational Risk Manager Relationship Specialty Start Date End Date Joi Lewis MD [address] [place] [address] PCP - General Internal Medicine 02/18/23 Operational Risk Manager Relationship Specialty Start Date End Date Joi Lewis MD [address] [place] [address] PCP - General Internal Medicine 02/18/23 Operational Risk Manager Relationship Specialty Start Date End Date Joi Lewis MD [address] [place] [address] PCP - General Internal Medicine 02/18/23 Operational Risk Manager Relationship Specialty Start Date End Date Joi Lewis MD PCP - General 01/23/16 Operational Risk Manager Relationship Specialty Start Date End Date Joi Lewis MD [address] [place] [address] PCP - General Internal Medicine 02/18/23 Operational Risk Manager Relationship Specialty Start Date End Date Unallocated, Yanique Louis MD [address] [place] [address] PCP - General Family Medicine 03/17/25 Operational Risk Manager Relationship Specialty Start Date End Date Joi Lewis MD PCP - General 01/23/16 Operational Risk Manager Relationship Specialty Start Date End Date Unallocated, Yanique Louis MD [address] [place] [address] [place] [address] PCP - General Family Medicine 03/17/25 Operational Risk Manager Relationship Specialty Start Date End Date Unallocated, Yanique Louis MD [facility] [place] [address] PCP - General Family Medicine 03/17/25 Operational Risk Manager Relationship Specialty Start Date End Date Unallocated, Yanique Louis MD [address] [place] [address] PCP - General [facility] 03/17/25 Operational Risk Manager Relationship Specialty Start Date End Date Unallocated, Yanique Louis MD [address] [facility] [address] PCP - General Family [facility] 03/17/25 Operational Risk Manager Relationship Specialty Start Date End Date Unallocated, Yanique Louis MD [address] [facility] [address] PCP - General Family [facility] 03/17/25 FOR RECORDS PERTAINING TO PATIENTS WHO [...] BE BASED ON THE PRIMARY CLINICAL RECORDS. [facility] [employer] [facility]. provides no warranty or guarantee of the accuracy or completeness of information in this document.
[2025-05-13 18:07] VITALS: BP 120/77; PULSE 85
== END 2025-05-13 18:34 | disposition home or self-care (01) ==
LOC: FBCO 17:58 → FBC 18:02
PROVIDERS: PCP Internal Medicine; Visit Provider Obstetrics & Gynecology
DX: O26.893 Other specified pregnancy related conditions, third trimester (principal)
CPT/HCPCS: 59025

== ENCOUNTER 2025-05-24 14:13 | Outpatient (OUT) | payer MEDICAID, SELFPAY ==
--- OUTSIDE RECORDS SUMMARY | 2016-01-29 14:00 | XMS_ITS | Encounter Summary ---
Author Organization [facility] Address [address] [facility], [address] [place] [address] Care Team Providers Care Implant Polisher Name Role Phone Oliver Lozano MD Primary Care Provider Encounter Details Date Type Department Care Team (Late st Contact Info) Description 01/29/2016 2:00 PM EDT Hospital Encounter [facility] Occupational Therapy [address] [phone] Jane Cruz MD [address] [place] [address] Makayla Chan OT Social History Tobacco Use [...] place to sleep or slept in a senior care (including now)? No 08/18/2023 Food Insecurity Answer [...] Chan OT - 02/05/2016 9:41 AM EDT [facility] Outpatient Occupational Therapy Plan of Care [...] Duration:6 weeks Subjective report: Time Frame for custodial goals : 6 weeks custodial goal 1: Pt will improve WOOD RRF = 200 See below [ ]Met [ ]Partially met [ ]Not met custodial goal 2: Pt will improve WOOD RSF = 240 cont [ ]Met [X]Partially met [ ]Not met watermelon harvesting supervisor goal 3: Pt will decrease edema over PIP RRF = 5.2 cm cont [ ]Met [X]Partially met [ ]Not met custodial goal 4: Pt will report increased functional [...] Signature: Date: Please sign and fax to [phone] * Makayla Chan OT - 01/29/2016 2:55 PM EDT [facility] Outpatient Occupational Therapy DAILY TREATMENT NOTE Date: 01/29/2016 Patient???s Name: Edgar Gifford Date of : 1995 (20 y.o.) Gender: female Diagnosis: RRF fracture dislocation S62.604S Referring Provider: Jane Cruz MD INSURANCE OT Insurance Information: [facility] Total # of Visits Approved: 30 [...] TREATMENT SESSION: Subjective report: Time Frame for custodial goals : 6 weeks custodial goal 1: Pt will improve WOOD RRF = 200 See below []Met []Partially met []Not met watermelon harvesting supervisor goal 2: Pt will improve WOOD RSF = 240 cont []Met [x]Partially met []Not met watermelon harvesting supervisor goal 3: Pt will decrease edema over PIP RRF = 5.2 cm cont []Met [x]Partially met []Not met watermelon harvesting supervisor goal 4: Pt will report increased functional [...] [phone] Electronically signed by KIRTI Person, OTR/L 01/29/2016 2:55 PM documented in this encounter Plan of Treatment Upcoming Encounters Date Type Department Care Team (Late st Contact Info) Description 05/25/2025 11:30 AM EDT [facility] [place] [address] [facility] [address] 1 wk nst 05/27/2025 9:45 AM EDT [facility] [address] [place] [phone] Return in about 1 week (around 05/26/2025) for BPP, Umbilical dopplers, -then weekly. 06/03/2025 9:45 AM EDT [facility] [address] [place] [phone] 06/07/2025 4:00 PM EDT Routine [facility] [place] [address] [facility] [place] [address] Jessika Parrish DO Replaced by [facility] [place] [address] 1 wk ELVIRA/ nst 06/10/2025 9:45 AM EDT [facility] [address] [place] [address] 06/14/2025 4:00 PM EDT [facility] [place] [address] [facility] [place] [address] Jessika Parrish DO Replaced by [facility] [place] [address] 1 wk ELVIRA/ nst 06/17/2025 9:45 AM EDT [facility] [address] [place] [phone] 06/21/2025 4:00 PM EDT Routine [facility] Smoking Pipe Liner [address] [phone] Francois JessikaDO [address] [place], [place] [phone] 1 wk elvira/nst 06/28/2025 4:00 PM EDT Routine [facility] Smoking Pipe Liner [place] [address] [phone] Jessika Parrish DO [address] [place], [place] [phone] 1 wk elvira/nst documented as of this encounter Visit Diagnoses Not on filedocumented in this encounter Care Teams Implant Polisher Relationship Specialty Start Date End Date Oliver Lozano MD PCP - General 01/23/16 documented as of this encounter
--- OUTSIDE RECORDS SUMMARY | 2016-02-08 14:45 | XMS_ITS | Encounter Summary ---
Author Organization [facility] Address [address] [facility], [address] [place] [address] Care Team Providers Care Intranet Developer Name Role Phone Oliver Lozano MD Primary Care Provider [phone] Encounter Details Date Type Department Care Team (Late st Contact Info) Description 02/08/2016 2:45 PM EDT Hospital Encounter [facility] Occupational Therapy [address] [phone] Jane Cruz MD [address] [place] [address] Makayla Chan OT Social History Tobacco Use [...] place to sleep or slept in a [place] facility (including now)? No 08/18/2023 Food Insecurity Answer [...] Progress Notes * Makayla Chan OT - 02/08/2016 3:25 PM EDT [facility] Outpatient Occupational Therapy DAILY TREATMENT NOTE Date: 02/08/2016 Patient???s Name: Edgar Gifford Date of : 1995 (20 y.o.) Gender: female Diagnosis: RRF fracture dislocation S62.604S Referring Provider: Jane Cruz MD INSURANCE OT Insurance Information: [facility] Total # of Visits Approved: 30 Total # of Visits to Date: 4 PAIN []No [x]Yes Location: Pain Rating (0-10 pain scale): 04/21 with PROM Pain Description: SUBJECTIVE Pt states that her appt with MD went well. States she is able to start PROM and was uncertain about splint wearing. Adjusted splint to 10-15 deg extension lag. PIP joint is in a static stretch with splint in place. Pt states MD told her that it was up to her to get her motion back. Pt isto followup with MD in 6 weeks. Flow Sheet Exercise Weight/Level Reps/Time Comments hand helper yellow 10 x 4 joint blocking 20 x Reviewed tech with patient putty Use to stretch into flexion and extension of right ring finger Pt given yellow theraputty forhome use. coin corn picker 16 coins PROM x Educated for HEP; use of table and putty to stretch PIP into extension; use of putty and thumb to stretch finger into extension Modality Flow Sheet: START STOP Tx Modality Electrical Stim: Ultrasound: ___ W/cm2 x ___ mins Duty factor: __100% __50% __20% __10% Head size: MHz: __1mHz __2 mHz __3mHz Location: 10 min right hand for pain and stiffness Hot Pack: 10 min right hand for pain and stiffness Paraffin: Cold Pack: GOALS/ TREATMENT SESSION: Subjective report: Time Frame for prison goals : 6 weeks practice nurse goal 1: Pt will improve WOOD RRF = 200 cont []Met [x]Partially met []Not met practice nurse goal 2: Pt will improve WOOD RSF = 240 cont []Met []Partially met [x]Not met prison goal 3: Pt will decrease edema over PIP RRF = 5.2 cm cont []Met [x]Partially met []Not met prison goal 4: Pt will report increased functional use of hand with IADLs cont []Met [x]Partially met []Not met Time Frame for Short term goals: 4 weeks Short term goal 1: Pt will improved WOOD RRF = 100 cont []Met [x]Partially met []Not met Short term goal 2: Pt will increase WOOD RSF = 175 cont []Met [x]Partially met []Not met Short term goal 3: Pt will be I with HEP Met; cont to monitor as exercises are added [x]Met []Partially met []Not met ADDITIONAL COMMENTS RIGHT HAND Ring MP 0-67 PIP 24-46 DIP 10-20 WOOD 99 EDUCATION New Education provided to patient/family/caregiver: [x]Yes: []No (Continued review of prior education) If yes Education Provided: Added PROM HEP for RRF PIP and DIP, yellow putty given to patient for HEP; to be used with stretching Method of Education: [x]Discussion []Demonstration [] Written []Other Evaluation of Patient???s Response to Education: [x]Patient and or caregiver verbalized understanding []Patient and or Caregiver Demonstrated without assistance []Patient and or Caregiver Demonstrated with assistance []Needs additional instruction to demonstrate understanding of education ASSESSMENT Patient tolerated today???s treatment session: [x] Good [] Fair [] Poor Limitations/difficulties with treatment session due to: [x]Pain []Fatigue []Other medical complications []Other Goal Assessment: [] No Change [x]Improved Comments: Pt improved her AROM. Splint adjusted to(-) 10-15 deg extension lag PLAN [x]Continue with current plan of care []Medical ???Hold?? []I???Hold?? per patient request [] Change Treatment plan: [] Insurance hold __ Other TIME Time Treatment session was INITIATED 250 Time Treatment session was STOPPED [phone] Electronically signed by KIRTI Person, OTR/L 02/08/2016 3:25 PM documented in this encounter Plan of Treatment Upcoming Encounters Date Type Department Care Team (Late st Contact Info) Description 05/25/2025 11:30 AM EDT [facility] [place] [address] [place] [address] 1 wk nst 05/27/2025 9:45 AM EDT [facility] [address] [place] [address] Return in about 1 week (around 05/26/2025) for BPP, Umbilical dopplers, -then weekly. 06/03/2025 9:45 AM EDT [facility] [address] [place] [address] 06/07/2025 4:00 PM EDT [facility] [place] [address] [place] [address] Jessika Parrish DO [address] [place] [address] 1 wk ELVIRA/ nst 06/10/2025 9:45 AM EDT [facility] [address] [place] [address] 06/14/2025 4:00 PM EDT [facility] [place] [address] [place] [address] Jessika Parrish DO [address] [place] [address] 1 wk ELVIRA/ nst 06/17/2025 9:45 AM EDT [facility] [address] [place] [address] 06/21/2025 4:00 PM EDT [facility] [place] [address] [place] [address] Jessika Parrish DO [address] [place] [address] 1 wk elvira/nst 06/28/2025 4:00 PM EDT [facility] [place] [address] [place] [address] Jessika Parrish DO [address] [place] [address] 1 wk elvira/nst documented as of this encounter Visit Diagnoses Not on filedocumented in this encounter Care Teams Intranet Developer Relationship Specialty Start Date End Date Oliver Lozano MD PCP - General 01/23/16 documented as of this encounter
--- OUTSIDE RECORDS SUMMARY | 2016-02-15 15:15 | XMS_ITS | Encounter Summary ---
Author Organization [facility] Address [address] [facility], [address] [place] [address] Care Team Providers Care Recapper Name Role Phone Oliver Lozano MD Primary Care Provider Encounter Details Date Type Department Care Team (Late st Contact Info) Description 02/15/2016 3:15 PM EDT Hospital Encounter [facility] Occupational Therapy [address] [phone] Jane Cruz MD [address] [place] [address] Makayla Chan OT Social History Tobacco Use [...] place to sleep or slept in a custodial (including now)? No 08/18/2023 Food Insecurity Answer [...] Progress Notes * Makayla Chan OT - 02/15/2016 2:49 PM EDT [facility] Outpatient Occupational Therapy DAILY TREATMENT NOTE Date: 02/15/2016 Patient???s Name: Edgar Gifford Date of : 1995 (20 y.o.) Gender: female Diagnosis: RRF fracture dislocation S62.604S Referring Provider: Jane Cruz MD INSURANCE OT Insurance Information: [facility] Total # of Visits Approved: 30 Total # of Visits to Date: 5 PAIN []No [x]Yes Location: Pain Rating (0-10 pain scale): 0/10 a rest; 6/10 at worst Pain Description: SUBJECTIVE Pt reports writing with greater ease; ADLs with increased ease. Tried typing; states didn't do to bad. Not wearing extension brace. Flow Sheet Exercise Weight/Level Reps/Time Comments hand helper 10 x 4 2 yellow joint blocking 20 x putty yellow Stretch 5 min Yellow wand Roll 2 min Modality Flow Sheet: START STOP Tx Modality Electrical Stim: Ultrasound: ___ W/cm2 x ___ mins Duty factor: __100% __50% __20% __10% Head size: MHz: __1mHz __2 mHz __3mHz Location: 10 min right hand for pain and stiffness Hot Pack: 10 min right hand for pain and stiffness Paraffin: Cold Pack: GOALS/ TREATMENT SESSION: Subjective report: Time Frame for long term acute care registered nurse goals : 6 weeks snf goal 1: Pt will improve WOOD RRF = 200 Cont; see below []Met [x]Partially met []Not met long term acute care registered nurse goal 2: Pt will improve WOOD RSF = 240 Cont; see below []Met [x]Partially met []Not met long term acute care registered nurse goal 3: Pt will decrease edema over PIP RRF = 5.2 cm cont []Met [x]Partially met []Not met long term acute care registered nurse goal 4: Pt will report increased functional use of hand with IADLs Cont; see subjective above []Met [x]Partially met []Not met Time Frame for Short term goals: 4 weeks Short term goal 1: Pt will improved WOOD RRF = 100 Met; see below [x]Met []Partially met []Not met Short term goal 2: Pt will increase WOOD RSF = 175 Met; see below [x]Met []Partially met []Not met Short term goal 3: Pt will be I with HEP met [x]Met []Partially met []Not met ADDITIONAL COMMENTS RIGHT HAND Ring Small MP 0-85 0-70 PIP 35-55 0-78 DIP 0-16 0-74 WOOD 121 222 EDUCATION New Education provided to patient/family/caregiver: []Yes: [x]No (Continued review of prior education) If yes Education Provided: reviewed HEP; pt instructed to continue to work PROM with a bit more stretch Method of Education: [x]Discussion [x]Demonstration [] Written [...] []Other Goal Assessment: [] No Change [x]Improved Comments:improved WOOD and functional use PLAN [x]Continue with current plan of care []Medical ???Hold?? []I???Hold?? per patient request [] Change Treatment plan: [] Insurance hold __ Other TIME Time Treatment session was INITIATED 246 Time Treatment session was STOPPED 345 [id number] Electronically signed by KIRTI Person, OTR/L 02/15/2016 2:49 PM documented in this encounter Plan of Treatment Upcoming Encounters Date Type Department Care Team (Late st Contact Info) Description 05/25/2025 11:30 AM EDT Routine [facility] Coupler [place] [address] [place] [address] 1 wk nst 05/27/2025 9:45 AM EDT [facility] [address] [facility] [address] [place] [phone] Return in about 1 week (around 05/26/2025) for BPP, Umbilical dopplers, -then weekly. 06/03/2025 9:45 AM EDT Routine [facility] Maternal Med [address] [facility] [address] [place] [phone] 06/07/2025 4:00 PM EDT [facility] [place] [address] [place] [address] Jessika Parrish DO [address] [place] [address] 1 wk ELVIRA/ nst 06/10/2025 9:45 AM EDT [facility] Maternal Med [address] [place] [address] 06/14/2025 4:00 PM EDT [facility] [place] [address] [place] [address] Jessika Parrish DO [address] [place] [address] 1 wk ELVIRA/ nst 06/17/2025 9:45 AM EDT [facility] Maternal Med [address] [place] [address] 06/21/2025 4:00 PM EDT [facility] [place] [address] [place] [address] Jessika Parrish DO [address] [place] [address] 1 wk elvira/nst 06/28/2025 4:00 PM EDT [facility] [place] [address] [place] [address] Jessika Parrish DO [address] [place] [address] 1 wk elvira/nst documented as of this encounter Visit Diagnoses Not on filedocumented in this encounter Care Teams Recapper Relationship Specialty Start Date End Date Oliver Lozano MD PCP - General 01/23/16 documented as of this encounter
--- OUTSIDE RECORDS SUMMARY | 2016-02-21 16:15 | XMS_ITS | Encounter Summary ---
Author Organization [facility] Address [address] [facility], [address] [place] [address] Care Team Providers Care Rotor Plate Washer Name Role Phone Oliver Lozano MD Primary Care Provider Encounter Details Date Type Department Care Team (Late st Contact Info) Description 02/21/2016 4:15 PM EDT Hospital Encounter [facility] Occupational Therapy [address] [phone] Jane Cruz MD [address] [place] [address] Makayla Chan OT Social History Tobacco Use [...] place to sleep or slept in a fdc (including now)? No 08/18/2023 Food Insecurity Answer [...] Chan OT - 02/21/2016 4:20 PM EDT [facility] Outpatient Occupational Therapy DAILY TREATMENT NOTE Date: 02/21/2016 Patient???s Name: Edgar Gifford Date of : 1995 (20 y.o.) Gender: female Diagnosis: Referring Provider: INSURANCE OT [facility] Total # of Visits Approved: 30 [...] TREATMENT SESSION: Subjective report: Time Frame for nursing home goals : 6 weeks nursing home goal 1: Pt will improve WOOD RRF = 200 Cont see below []Met [x]Partially met []Not met nursing home goal 2: Pt will improve WOOD RSF = 240 cont []Met [x]Partially met []Not met seed yeast operator goal 3: Pt will decrease edema over PIP RRF = 5.2 cm cont []Met [x]Partially met []Not met seed yeast operator goal 4: Pt will report increased [...] Info) Description 05/25/2025 11:30 AM EDT Routine [facility] Academic Tutor [address] [address] 1 wk nst 05/27/2025 9:45 AM EDT Routine [facility] Maternal Med [address] [place] [address] [address] [place] [address] Return in about 1 week (around 05/26/2025) for BPP, Umbilical dopplers, -then weekly. 06/03/2025 9:45 AM EDT Routine [facility] Maternal Med [facility] [address] [place] [address] 06/07/2025 4:00 PM EDT Routine [facility] Academic Tutor [place] 006733 [address] [phone] Jessika Parrish DO [address] [place] [address] 1 wk ELVIRA/ nst 06/10/2025 9:45 AM EDT Routine [facility] Maternal Med [address] [facility] [address] [place] [address] 06/14/2025 4:00 PM EDT Routine [facility] Academic Tutor [place] [address] [place] [address] Jessika Parrish DO [address] [place] [address] 1 wk ELVIRA/ nst 06/17/2025 9:45 AM EDT Routine [facility] Maternal Med [address] [facility] [address] [place] [address] 06/21/2025 4:00 PM EDT Routine [facility] Academic Tutor [place] [address] [place] [address] Jessika Parrish DO [address] [place] [address] 1 wk elvira/nst 06/28/2025 4:00 PM EDT Routine [facility] Academic Tutor [place] [address] [place] [address] Jessika Parrish DO [address] [place] [address] 1 wk elvira/nst documented as of this encounter Visit Diagnoses Not on filedocumented in this encounter Care Teams Rotor Plate Washer Relationship Specialty Start Date End Date Oliver Lozano MD PCP - General 01/23/16 documented as of this encounter
--- OUTSIDE RECORDS SUMMARY | 2016-02-28 08:00 | XMS_ITS | Encounter Summary ---
Author Organization [facility] Address [address] [facility], [address] [place] [address] Care Team Providers Care Dewer Name Role Phone Oliver Lozano MD Primary Care Provider Encounter Details Date Type Department Care Team (Late st Contact Info) Description 02/28/2016 8:00 AM EDT Hospital Encounter [facility] Occupational Therapy [address] [phone] Jane Cruz MD [address] [place] [address] Makayla Chan OT Social History Tobacco Use [...] place to sleep or slept in a halfway (including now)? No 08/18/2023 Food Insecurity Answer [...] Functional Status documented as of this encounter Plan of Treatment Upcoming Encounters Date Type Department Care Team (Late st Contact Info) Description 05/25/2025 11:30 AM EDT Routine [facility] Plastic Fixture Builder [facility] [address] [address] 1 wk nst 05/27/2025 9:45 AM EDT [facility] Maternal Med [address] [place] [address] Return in about 1 week (around 05/26/2025) for BPP, Umbilical dopplers, -then weekly. 06/03/2025 9:45 AM EDT [facility] Maternal Med [address] [place] [address] 06/07/2025 4:00 PM EDT [facility] Plastic Fixture Builder [place] [address] [place] [address] Jessika Parrish DO [address] [place] [address] 1 wk ELVIRA/ nst 06/10/2025 9:45 AM EDT [facility] Maternal Med [address] [place] [address] 06/14/2025 4:00 PM EDT [facility] Plastic Fixture Builder [place] [address] [place] [address] Jessika Parrish DO [address] [place], [place] [phone] 1 wk ELVIRA/ nst 06/17/2025 9:45 AM EDT [facility] Maternal Med [address] [place] [address] 06/21/2025 4:00 PM EDT [facility] Plastic Fixture Builder [place] [address] [place] [address] Jessika Parrish DO [address] [place] [address] 1 wk elvira/nst 06/28/2025 4:00 PM EDT [facility] Plastic Fixture Builder [place] [address] [place] [phone] Jessika Parrish DO [address] [place], [place] [phone] 1 wk elvira/nst documented as of this encounter Visit Diagnoses Not on filedocumented in this encounter Care Teams Dewer Relationship Specialty Start Date End Date Oliver Lozano MD PCP - General 01/23/16 documented as of this encounter
--- OUTSIDE RECORDS SUMMARY | 2016-03-27 14:15 | XMS_ITS | Encounter Summary ---
Author Organization [facility] Address [address] [facility], [address] [place] [address] Care Team Providers Care Manager Salt Name Role Phone Oliver Lozano MD Primary Care Provider Encounter Details Date Type Department Care Team (Late st Contact Info) Description 03/27/2016 2:15 PM EDT Hospital Encounter [facility] Occupational Therapy [address] [phone] Jane Cruz MD [address] [place] [address] Makayla Chan OT Social History Tobacco Use [...] place to sleep or slept in a residential (including now)? No 08/18/2023 Food Insecurity Answer [...] Chan OT - 03/27/2016 2:35 PM EDT [facility] Outpatient Occupational Therapy DAILY TREATMENT NOTE Date: 03/27/2016 Patient???s Name: Edgar Gifford Date of : 1995 (20 y.o.) Gender: female Diagnosis: RRF fracture dislocation S62.604S Referring Provider: Jane Cruz MD INSURANCE OT Insurance Information: [facility] Total # of Visits Approved: 30 Total # of Visits to Date: 9 PAIN []No [x]Yes Location: Pain Rating (0-10 pain scale): 4/10; not constant Pain Description: SUBJECTIVE Using hand to carry objects; better grasp. 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 for ferry terminal supervisor goals : 6 weeks detention goal 1: Pt will improve WOOD RRF = 200 See below []Met [x]Partially met []Not met detention goal 2: Pt will improve WOOD RSF = 240 cont []Met []Partially met []Not met ferry terminal supervisor goal 3: Pt will decrease edema over PIP RRF = 5.2 cm cont []Met []Partially met []Not met detention goal 4: Pt will report increased functional [...] Info) Description 05/25/2025 11:30 AM EDT [facility] [place] [facility] [address] CASTRO [address] [place] [phone] 1 wk nst 05/27/2025 9:45 AM EDT Routine [facility] [address] [place] [address] Return in about 1 week (around 05/26/2025) for BPP, Umbilical dopplers, -then weekly. 06/03/2025 9:45 AM EDT [facility] [address] [place] [address] 06/07/2025 4:00 PM EDT Routine [facility] Body Care Manager [place] [facility] [place] [address] Jessika Parrish DO [address] [place] [address] 1 wk ELVIRA/ nst 06/10/2025 9:45 AM EDT [facility] [address] [place] [address] 06/14/2025 4:00 PM EDT [facility] Care Manager [place] [address] [place] [address] Jessika Parrish DO [address] [place] [address] 1 wk ELVIRA/ nst 06/17/2025 9:45 AM EDT [facility] [address] [place] [address] 06/21/2025 4:00 PM EDT [facility] Care Manager [place] [address] [place] [address] Jessika Parrish DO [address] [place] [address] 1 wk elvira/nst 06/28/2025 4:00 PM EDT [facility] Care Manager [place] [address] [place] [address] Jessika Parrish DO [address] [place] [address] 1 wk elvira/nst documented as of this encounter Visit Diagnoses Not on filedocumented in this encounter Care Teams Manager Salt Relationship Specialty Start Date End Date Oliver Lozano MD PCP - General 01/23/16 documented as of this encounter
--- OUTSIDE RECORDS SUMMARY | 2016-04-03 15:45 | XMS_ITS | Encounter Summary ---
Author Organization [facility] Address [address] [facility], [address] [place] [address] Care Team Providers Care Personal Banking Assistant Name Role Phone Oliver Lozano MD Primary Care Provider Encounter Details Date Type Department Care Team (Late st Contact Info) Description 04/03/2016 3:45 PM EDT Hospital Encounter [facility] Occupational Therapy [address] [phone] Jane Cruz MD [address] [place] [address] Makayla Chan OT Social History Tobacco Use [...] place to sleep or slept in a intermediate (including now)? No 08/18/2023 Food Insecurity Answer [...] Chan OT - 04/03/2016 3:40 PM EDT [facility] Outpatient Occupational Therapy DAILY TREATMENT NOTE Date: 04/03/2016 Patient???s Name: Edgar Gifford Date of : 1995 (20 y.o.) Gender: female Diagnosis: RRF fracture dislocation S62.604S ?? Referring Provider: Jane Cruz MD INSURANCE OT Insurance Information: [facility] Total # of Visits Approved: 30 [...] red 3 min flexion stretch; 4 min riverboat captain GPB 25 joint blocking Modality Flow Sheet: START STOP Tx Modality Electrical Stim: Ultrasound: ___ W/cm2 x ___ mins Duty factor: __100% __50% __20% __10% Head size: MHz: __1mHz __2 mHz __3mHz Location: 10 min right hand for pain and stiffness Hot Pack: 10 min right hand for pain and stiffness Paraffin: Cold Pack: GOALS/ TREATMENT SESSION: Subjective report: Time Frame for terminal superintendent goals : 6 weeks longterm goal 1: Pt will improve WOOD RRF = 200 See below []Met [x]Partially met []Not met terminal superintendent goal 2: Pt will improve WOOD RSF = 240 cont []Met [x]Partially met []Not met longterm goal 3: Pt will decrease edema over PIP RRF = 5.2 cm cont []Met [x]Partially met []Not met terminal superintendent goal 4: Pt will report increased functional [...] Chan OT - 03/18/2016 4:48 PM EDT [facility] Outpatient Occupational Therapy Plan of Care [...] 6 weeks Subjective report:? Time Frame for terminal superintendent goals : 6 weeks? terminal superintendent goal 1: Pt will improve WOOD RRF = 200?? See below?? []Met [x]Partially met []Not met?? longterm goal 2: Pt will improve WOOD RSF = 240?? Cont; last measurement was 220+ []Met [x]Partially met []Not met?? terminal superintendent goal 3: Pt will decrease edema over PIP RRF = 5.2 cm?? cont?? []Met [x]Partially met []Not met?? longterm goal 4: Pt will report increased functional use of hand with IADLs?? 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 States that she holds ring [...] provided for adherence to HEP as well. Comments: Rehab Potential [x] Excellent [x] Good [] Fair [] Poor Regulatory Requirements I have reviewed this plan of care and certify a need for medically necessary rehabilitation services. Physician Signature: Date: Please sign and fax to [phone] documented in this encounter Plan of Treatment Upcoming Encounters Date Type Department Care Team (Late st Contact Info) Description 05/25/2025 11:30 AM EDT Routine [facility] Slab Depiler Operator [address] [address] 1 wk nst 05/27/2025 9:45 AM EDT Routine [facility] Maternal Med [address] [place] [phone] Return in about 1 week (around 05/26/2025) for BPP, Umbilical dopplers, -then weekly. 06/03/2025 9:45 AM EDT Routine [facility] [address] [place] [phone] 06/07/2025 4:00 PM EDT Routine [facility] Slab Depiler Operator [place] [address] [phone] Jessika Parrish DO [facility] [place] [address] 1 wk ELVIRA/ nst 06/10/2025 9:45 AM EDT Routine [facility] [address] [facility] [address] [place] [address] 06/14/2025 4:00 PM EDT Routine [facility] Slab Depiler Operator [place] [address] [place] [address] Jessika Parrish DO [address] [place] [address] 1 wk ELVIRA/ nst 06/17/2025 9:45 AM EDT Routine [facility] [address] [facility] [address] [place] [address] 06/21/2025 4:00 PM EDT Routine [facility] Slab Depiler Operator [place] [address] [place] [address] Jessika Parrish DO [address] [place] [address] 1 wk elvira/nst 06/28/2025 4:00 PM EDT Routine [facility] Slab Depiler Operator [place] [address] [place] [address] Jessika Parrish DO [address] [place] [address] 1 wk elvira/nst documented as of this encounter Visit Diagnoses Not on filedocumented in this encounter Care Teams Personal Banking Assistant Relationship Specialty Start Date End Date Oliver Lozaon MD PCP - General 01/23/16 documented as of this encounter
--- OUTSIDE RECORDS SUMMARY | 2016-04-08 13:00 | XMS_ITS | Encounter Summary ---
Author Organization [facility] Address [address], [address] [place] [address] Care Team Providers Care Washing Machine Loader Name Role Phone Oliver Lozano MD Primary Care Provider Encounter Details Date Type Department Care Team (Late st Contact Info) Description 04/08/2016 1:00 PM EDT Hospital Encounter [facility] Occupational Therapy [address] [phone] Jane Cruz MD [address] [place] [address] Makayla Chan OT Social History Tobacco Use [...] place to sleep or slept in a fpc (including now)? No 08/18/2023 Food Insecurity Answer [...] Progress Notes * Makayla Chan OT - 04/08/2016 1:11 PM EDT [facility] Outpatient Occupational Therapy DAILY TREATMENT NOTE Date: 04/08/2016 Patient???s Name: Edgar Gifford Date of : 1995 (20 y.o.) Gender: female Diagnosis: RRF fracture dislocation S62.604S Referring Provider: Jane Cruz MD INSURANCE OT Insurance Information: [facility] Total # of Visits Approved: 30 Total # of Visits to Date: 11 PAIN []No [x]Yes Location: R hand 4th digit Pain Rating (0-10 pain scale): 6/10 with movement/during exercises Pain Description: SUBJECTIVE Patient has April 19 f/u c Dr. Cruz; wrapped RRF in flexion with additional 65* of flexion and encouraged patient to keep on x30 minutes. Flow Sheet Exercise?? Weight/Level?? Reps/Time?? Comments?? power web?? yellow?? 20x? hand helper?? 10 x 4?? 40x? putty?? red?? 3 min flexion stretch; 4 min chocolate temperer? GPB?? 25? joint blocking? Modality Flow Sheet: START STOP Tx Modality Electrical Stim: Ultrasound: ___ W/cm2 x ___ mins Duty factor: __100% __50% __20% __10% Head size: MHz: __1mHz __2 mHz __3mHz Location: 10 min right hand for pain and stiffness Hot Pack: 10 min right hand for pain and stiffness Paraffin: Cold Pack: GOALS/ TREATMENT SESSION: Subjective report: Time Frame for detention goals : 6 weeks detention goal 1: Pt will improve WOOD RRF = 200 Part met; see below []Met [x]Partially met []Not met detention goal 2: Pt will improve WOOD RSF = 240 met [x]Met []Partially met []Not met detention goal 3: Pt will decrease edema over PIP RRF = 5.2 cm Met; see below [x]Met []Partially met []Not met intermediate project manager goal 4: Pt will report increased functional [...] ADDITIONAL COMMENTS RIGHT HAND Ring Small MP 0-100 0-75 PIP 24-71 0-90 DIP 0-15 0-86 WOOD 162 251 EDEMA PIP's RIGHT Ring 5.0cm EDUCATION New Education provided to patient/family/caregiver: []Yes: [x]No (Continued review of prior education) If yes Education Provided: Method of Education: [x]Discussion []Demonstration [] Written [...] []Fatigue []Other medical complications []Other Goal Assessment: [x] No Change []Improved Comments: PLAN [x]Continue with current plan of care []Medical ???Hold?? []I???Hold?? per patient request [] Change Treatment plan: [] Insurance hold __ Other TIME Time Treatment session was INITIATED 1:07 Time Treatment session was STOPPED 1:56 49 Electronically signed by KIRTI Person, OTR/Helene 04/08/2016 1:12 PM documented in this encounter Plan of Treatment Upcoming Encounters Date Type Department Care Team (Late st Contact Info) Description 05/25/2025 11:30 AM EDT Routine [facility] Expenditure Requisition Clerk [place] [address] [place] [phone] 1 wk nst 05/27/2025 9:45 AM EDT Routine [facility] Maternal Med [address] [place] [address] Return in about 1 week (around 05/26/2025) for BPP, Umbilical dopplers, -then weekly. 06/03/2025 9:45 AM EDT Routine [facility] [address] [place] [address] 06/07/2025 4:00 PM EDT [facility] Expenditure Requisition Clerk [place] [address] [place] [address] Jessika Parrish DO [address] [place] [address] 1 wk ELVIRA/ nst 06/10/2025 9:45 AM EDT [facility] [address] [place] [address] 06/14/2025 4:00 PM EDT [facility] Expenditure Requisition Clerk [place] [address] [place] [address] Jessika Parrish DO [address] [place] [address] 1 wk ELVIRA/ nst 06/17/2025 9:45 AM EDT [facility] [address] [place] [address] 06/21/2025 4:00 PM EDT [facility] Expenditure Requisition Clerk [place] [address] [place] [address] Jessika Parrish DO [address] [place] [address] 1 wk elvira/nst 06/28/2025 4:00 PM EDT [facility] Expenditure Requisition Clerk [place] [address] [place] [address] Jessika Parrish DO [address] [place] [address] 1 wk elvira/nst documented as of this encounter Visit Diagnoses Not on filedocumented in this encounter Care Teams Washing Machine Loader Relationship Specialty Start Date End Date Oliver Lozano MD PCP - General 01/23/16 documented as of this encounter
--- OUTSIDE RECORDS SUMMARY | 2016-04-10 14:30 | XMS_ITS | Encounter Summary ---
Author Organization [facility] Address [address], [address] [place] [address] Care Team Providers Care Director Of Student Aid Name Role Phone Oliver Lozano MD Primary Care Provider Encounter Details Date Type Department Care Team (Late st Contact Info) Description 04/10/2016 2:30 PM EDT Hospital Encounter [facility] Occupational Therapy [address] [phone] Jane Cruz MD [address] [place] [address] Makayla Chan OT Social History Tobacco Use [...] Functional Status documented as of this encounter Discharge Summaries * Makayla Chan OT - 08/22/2016 10:08 AM EST Occupational Therapy Hand & Upper Extremity [facility] Occupational Therapy Discharge Note Date: 08/22/2016 Patient: Edgar Gifford : 1995 Physician: Jane Cruz MD Insurance: [facility] Diagnosis:RRF fracture dislocation S62.604S Onset Date: 11/18/15 Next Appt: uncertain Total visits attended:11 Cancels/No shows: 7 Date of initial visit: 01/22/2016 Date of final visit: 04/08/2016 Subjective: Pain: [x] Yes [] No Location: RRF PIP joint Pain Rating: (0-10 scale) 6/10 with movement/during exercises Pain altered Tx: [] No [] Yes Action: Comments: Objective: Subjective report: ? Time Frame for buttermaker goals : 6 weeks ? FPC goal 1: Pt will improve WOOD RRF = 200 Part met; see below []Met [x]Partially met []Not met FPC goal 2: Pt will improve WOOD RSF = 240 met ?? [x]Met []Partially met []Not met buttermaker goal 3: Pt will decrease edema over PIP RRF = 5.2 cm Met; see below [x]Met []Partially met []Not met FPC goal 4: Pt will report increased functional use of hand with IADLs Part met []Met [x]Partially met []Not met Time Frame for Short term goals: 4 weeks ? Short term goal 1: Pt will improved WOOD RRF = 100 met [x]Met []Partially met []Not met Short term goal 2: Pt will increase WOOD RSF = 175 met [x]Met []Partially met []Not met Short term goal 3: Pt will be I with HEP met []Met []Partially met []Not met ADDITIONAL COMMENTS ??Pt very sporadic with attendance. ? RIGHT HAND Ring Small MP 0-100 0-75 PIP 24-71 0-90 DIP 0-15 0-86 WOOD 162 251 ?? EDEMA PIP's RIGHT Ring 5.0cm Treatment to Date: [x] Therapeutic Exercise [] Modalities: [x] Therapeutic Activity [] Ultrasound [] Electrical Stimulation [x] Ortho refit/check [] Massage [] Fluidotherapy [] Neuromuscular Re-education [] Cold/hotpack [] Iontophoresis: 4 mg/mL [] Instruction in Home Exercise Program Dexamethasone Sodium [x] Manual Therapy Phosphate 40-80 mAmin [x] Paraffin [] Other: Discharge Status: [] Pt recovered from conditions. Treatment goals were met. [x] Pt received maximum benefit. No further therapy indicated at this time. [x] Pt to continue exercise/home instructions independently. [] Therapy interrupted due to: [x] Pt has 2 or more no shows/cancels, is discontinued per our policy. [] Pt has completed prescribed number of treatment sessions. [] Other: Electronically signed by KIRTI Person, OTR/L 08/22/2016 10:08 AM If you have any questions or concerns, please don't hesitate to call. Thank you for your referral. documented in this encounter Progress Notes * Makayla Chan OT - 04/10/2016 4:35 PM EDT [facility] Rehabilitation Date: 04/10/2016 Patient Name: Edgar Gifford : 1995 [x] Pt No Showed Appt pt was called to reschedule appt. Left message on machine [] Pt Cancelled Appt: [] No Reason Given [] Sick/ill [] Other: Makayla Chan Date: 04/10/2016 documented in this encounter Plan of Treatment Upcoming Encounters Date Type Department Care Team (Late st Contact Info) Description 05/25/2025 11:30 AM EDT Routine [facility] Wheel Installer [place] [address] [facility] [address] [place] [phone] 1 wk nst 05/27/2025 9:45 AM EDT Routine [facility] Maternal Med [address] [phone] Return in about 1 week (around 05/26/2025) for BPP, Umbilical dopplers, -then weekly. 06/03/2025 9:45 AM EDT Routine [facility] Maternal Med [address] [phone] 06/07/2025 4:00 PM EDT [facility] Wheel Installer [place] [address] [place] [address] Jessika Parrish DO [address] [place] [address] 1 wk ELVIRA/ nst 06/10/2025 9:45 AM EDT [facility] [address] [place] [address] 06/14/2025 4:00 PM EDT [facility] Wheel Installer [place] [address] [place] [address] Jessika Parrish DO [address] [place] [address] 1 wk ELVIRA/ nst 06/17/2025 9:45 AM EDT [facility] [address] [place] [address] 06/21/2025 4:00 PM EDT [facility] Wheel Installer [place] [address] [place] [address] Jessika Parrish DO [address] [place] [address] 1 wk elvira/nst 06/28/2025 4:00 PM EDT [facility] Wheel Installer [place] [address] [place] [address] Jessika Parrish DO [address] [place] [address] 1 wk elvira/nst documented as of this encounter Visit Diagnoses Not on filedocumented in this encounter Care Teams Director Of Student Aid Relationship Specialty Start Date End Date Olivre Lozano MD PCP - General 01/23/16 documented as of this encounter
--- OUTSIDE RECORDS SUMMARY | 2024-06-22 08:30 | XMS_ITS ---
Author Organization The [facility] in [place] Address [address] [place] [address] Care Team Providers Care Hvac R Tech Name Role Phone Blake LOYOLA, Oliver Primary Care Provider Reba Chicas Unavailable [phone] REASON FOR VISIT New PT Hem Encounters Encounter Location Date Provider Diagnosis [facility] [address] [place] [phone] 06/22/2024 Reba Tovar Plan Of Treatment No Information Progress Notes * Edgar GIFFORD MDOB: [birth year] (29 yo F)Acc No.[id number]:06/22/2024 UNLOCKED PROGRESS NOTE Progress Notes Patient: Edgar COLE Provider: Bienvenido Tovar M.D. :1995 A ge:28 Y S ex:Female Date:06/22/2024 Address:[address] [place], [place] [phone] Pcp:Oliver Lozano MD Subjective: * Chief Complaints: * 1 . New PT Hem. * Medical History: Objective: * Vitals: Assessment: Plan: * Treatment: * * Electronic signature of Anand Tovar MD, [id number] on 05/24/2025 at 01:30 PM EDT Sign off status: Pending Visit Status: C ONFPHONE (Voice) * Provider: Bienvenido Tovar M.D. Date: 06/22/2024 Generated for Printi ng/Faxing/eTransmitting on: 0 05/24/2025 01:30 PM EDT
--- OUTSIDE RECORDS SUMMARY | 2024-07-06 10:30 | XMS_ITS ---
Author Organization [facility] in [place] Address [address] [place] [address] Care Team Providers Care Ladies' Locker Room Attendant Name Role Phone Blake LOYOLA, Oliver Primary Care Provider Reba Chicas Unavailable [phone] REASON FOR VISIT MD TELEHEALTH Encounters Encounter Location Date Provider Diagnosis [facility] On[facility] [address] [place] [phone] 07/06/2024 Reba Tovar Plan Of Treatment No Information Progress Notes * Edgar GIFFORD MDOB: [birth year] (29 yo F)Acc No.[id number]:07/06/2024 UNLOCKED PROGRESS NOTE Progress Notes Patient: Edgar COLE Provider: Bienvenido Tovar M.D. :1995 A ge:28 Y S ex:Female Date:07/06/2024 Address:[address] [place], [place] [phone] Pcp:Oliver Lozano MD Subjective: * Chief Complaints: * 1 . MD TELEHEALTH. * Medical History: Objective: * Vitals: Assessment: Plan: * Treatment: * * Electronic signature of Anand Tovar MD, [id number] on 05/24/2025 at 01:30 PM EDT Sign off status: Pending Visit Status: C ANC (Cancelled) * Provider: Bienvenido Tovar M.D. Date: 0 07/06/2024 Generated for Printi ng/Fatequilag/eTransmitting on: 0 05/24/2025 01:30 PM EDT
--- OUTSIDE RECORDS SUMMARY | 2025-05-10 13:50 | XMS_ITS | Encounter Summary ---
Author Organization [facility] Address [address] [place] [address] Care Team Providers Care Olericulturist Name Role Phone Unallocated, Noms Provider Primary Care Provi zoltan Reason for Visit * Reason Comments Routine Visit Encounter Details Date Type Department Care Team (Late st Contact Info) Description 05/10/2025 1:50 PM EDT Routine YANIQUE [place] OBGYN [address] [place] [phone] Leyla Matt PA [address] [place], [place] [address] Third trimester ([facility]); 31 weeks gestation of ([facility]); Cold sore Social History Tobacco Use Types Packs/Day Years [...] Sign Reading Time Taken Comments Blood Pressure 120/74 05/10/2025 2:13 PM EDT Pulse - - Temperature - - Respiratory Rate - - Oxygen Saturation - - Inhaled Oxygen Concentration - - Weight 91.6 kg (202 lb) 05/10/2025 2:13 PM EDT Height - - Body Mass Index 36.95 06/02/2024 1:03 PM EDT documented in this encounter Progress Notes * Vicki Siddiqui MA - 05/10/2025 1:50 PM EDT Reason for Appointment: Patient ID: Edgar Gifford is a 29 y.o. female who presents for Routine Visit Patient presents today for Return OB appointment. MEDICATIONS Current Outpatient Medications Medication Instructions acyclovir (ZOVIRAX) 400 mg, Oral magnesium oxide (MAG-OX) 400 mg, Oral, Daily Vit-DSS-Fe Fum-FA ( 19) tablet 1 tablet, Oral, Daily ALLERGIES Allergies Allergen Reactions Ibuprofen Bruising t/o the body Other Reaction(s): Other Nsaids Other Reaction(s): Unknown PROBLEMS Active Ambulatory Problems Diagnosis Date Noted Aortic valve stenosis 01/06/2025 14 weeks gestation of ([facility]) 01/06/2025 Second trimester ([facility]) 01/06/2025 Von Willebrand disease (HCC) 01/06/2025 Resolved Ambulatory Problems Diagnosis Date Noted No Resolved Ambulatory Problems Past Medical History: Diagnosis Date Aortic stenosis due to bicuspid aortic valve HISTORY PAST MEDICAL HISTORY SOCIAL HISTORY Past Medical History: Diagnosis Date Aortic stenosis due to bicuspid aortic valve Von Willebrand disease (HCC) Social History Tobacco Use Smoking status: Not [...] Exam Vitals: Estimated body mass index is 36.95 kg/m?? as calculated from the following: Height as of 06/02/24: 5' 2 . Weight as of this encounter: 202 lb. BP: 120/74 Patient's last menstrual period was 09/29/2024. ASSESSMENT & PLAN ICD-10-CM 1. Third trimester ([facility]) Z34.93 CANCELED: POCT urinalysis dipstick manually resulted 2. 31 weeks gestation of ([facility]) Z3A.31 Return OB: Patient presents today for a routine obstetrics appointment. Patient is currently 31w6d . Patient states she is doing well but has complaints of being tired due to current . Patient has verbalizes frequent movement. labor precautions was discussed/given and patient was instructed to perform kick counts three times a day. No orders of the defined types were placed in this encounter. Follow Up: Patient is to return to office in 3 week for routine OB appointment. Documented by Vicki Siddiqui MA on behalf of: RHIANNON Bar documented in this encounter Miscellaneous Notes * Addendum Note - Jonathan Ambrocio MA - 05/10/2025 1:50 PM EDTAddended by: JONATHAN AMBROCIO on: 05/10/2025 02:25 PM Modules accepted: Orders documented in this encounter Plan of Treatment Not on file documented as of this encounter Visit Diagnoses Diagnosis Third trimester ([facility]) state, incidental 31 weeks gestation of ([facility]) Cold sore Herpes simplex without mention of complication documented in this encounter Care Teams Olericulturist Relationship Specialty Start Date End Date Unallocated, Noms Provider, [address] [place] [address] PCP - General Family Medicine 03/17/25 documented as of this encounter
--- OUTSIDE RECORDS SUMMARY | 2025-05-17 16:00 | XMS_ITS | Encounter Summary ---
Author Organization [facility] Address [address], [address] [place] [address] Care Team Providers Care Structural Rigger Name Role Phone Oliver Lozano MD Primary Care Provider [phone] Reason for Referral * Eval and Treat (Routine) - Closed Specialty Diagnoses / Procedures Referred By Jhonny langley Referred To Contact Maternal & Medicine / Perinatology Diagnoses High-risk in third trimester Emma Nava DO [address] [place] [address] Phone: tel: fax: Luther George MD [address] [facility] [place] [place] [address] Phone: tel: fax: Referral ID Status Reason Start Date Expiration Date V isits Requested Visits Authorized [id number] Closed Specialty Services Required 05/17/2025 05/17/2026 1 1 Scheduling Instructions [facility] Maternal Medicine Request for Consultation/ Evaluation: [facility]aternal [facility] [address] [address] Phone: [phone], Check all that apply: 1. ___X_ [facility] Ultrasound with Consult, if indicated 2. ____ [facility] Ultrasound with Consult, if indicated and additional testing as deemed necessary by the [facility] physician 3. ____ First Trimester Screening (NT & Nasal Bone) with other ultrasound and consult if indicated 4. ____ First Trimester Screening (NT & Nasal Bone) with other ultrasound and consult if indicated with Early-Onset Preeclampsia Risk Assessment 5. ____ Doppler (umbilical and/or MCA) with other ultrasound and consult if indicated 6. ____ Echocardiogram with Doppler with other ultrasound and consult if indicated 7. ____ Surveillance (NST) with ultrasound (BPP, doppler, etc) and consult if indicated 8. ____ Evaluation for Amniocentesis with ultrasound guidance; other ultrasound & consult if indicated 9. ____ Genetics (with ultrasound and MFM Consult if indicated) 10. ___ Preconception Counseling 11. ___ MFM diabetes complete co-management for the duration of the (including consult, serial ultrasound, diabetes education, nutrition, surveillance NST, BPP and dopplers, etc.) Please indicate diabetes status ____ gestational ____Type 1 ____ Type 2 Clinical Indication for consultation/evaluation/ ultrasound: Transfer of care from Dr. Serrato, Aortic stenosis, Von Willebrand Disease, cHTN (no meds) Patient is under 18 - Guarantor: No LMP: Patient's last menstrual period was 09/29/2024 (exact date). TIERRA: Estimated Date of Delivery: 07/06/25 Gestational Age: 32w6d (at time of referral) Multiple: No Next visit: 05/25/2025 Question Answer My clinical question is: US and consult if indicated (new referral transfer of care) Comments The patient can be scheduled with any member of the group, including the provider with the first available appointments. * Eval and Treat (Routine) - Authorized Specialty Diagnoses / Procedures Referred By Contalexa t Referred To Contact Oncology Diagnoses High-risk in third trimester Von Willebrand disease (HCC) Emma Nava DO [address] [place] [address] Phone: tel: fax: [facility] [address] [place] [address] Phone: tel: Referral ID Status Reason Start Date Expiration Date Visits Requested Visits Authorized [id number] Authorized Specialty Services Required 05/17/2025 05/17/2026 1 1 Scheduling Instructions [facility] Question Answer My clinical question is: Third trimester , Von Willebrand Disease Comments The patient can be scheduled with any member of the group, including the provider with the first available appointments. Reason for Visit * Reason Comments Initial Visit [id number] Encounter Details Date Type Department Care Team (Late st Contact Info) Description 05/17/2025 4:00 PM EDT Routine [facility] Hot Box Spotter [place] [id number] [address] Emma Nava DO [address] [place] [address] High-risk in third trimester (Primary Dx); 32 weeks gestation of ; Aortic valve stenosis, etiology of cardiac valve disease unspecified; Von Willebrand disease (HCC); HSV infection; Secondary hypertension; Rubella Non-Immune Social History Tobacco Use Types Packs/Day Years [...] Sign Reading Time Taken Comments Blood Pressure 128/93 05/17/2025 4:23 PM EDT Pulse 88 05/17/2025 4:23 PM EDT Temperature - - Respiratory Rate - - Oxygen Saturation - - Inhaled Oxygen Concentration - - Weight 94 kg (207 lb 4.8 oz) 05/17/2025 4:23 PM EDT Height - - Body Mass Index 37.92 02/17/2025 2:09 PM EDT documented in this encounter Progress Notes * Letty Caal MA - 05/17/2025 4:24 PM EDT Pt was unable to void at time of appointment * Emma Nava DO - 05/17/2025 4:00 PM EDT Images from the original note were not included. [facility] INSTRUCTIONAL PARAPROFESSIONAL Initial Visit CC: Initial Visit HPI: Edgar Gifford is a 29 y.o. female at 32w6d She is being seen today for transfer of care from Dr. Serrato. history fully reviewed. Thisis a planned . Her LMP is Patient's last menstrual period was 09/29/2024 (exact date). Herobstetrical history is significant for aortic valve stenosis, Von Willebrand disease. The patient was seen and evaluated. There was positive movements. She denies contractions, vaginal bleeding and leakage of fluid. She currently denies any signs or symptoms of pre-eclampsia which include headache, vision changes, RUQ pain. The patient declined the T-Dap Vaccine (27-36 weeks) this . The patient is Rh positive and Rhogam is not indicated in this Relationship with FOB: Involved Mother's ethnicity: Father's ethnicity: Family History: - Neural tube defects: No - Congenital defects (congenital heart defects, polydactyly, cleft lip/palate): Yes: maternalcongenital heart defect, sister congenital heart defect - Intellectual disability: No - Genetic disorders/chromosomal abnormalities: No - Diabetes mellitus in first degree relatives: Yes: father OB History: OB History Para Term AB Living 1 0 0 0 0 0 SAB IAB Ectopic Molar Multiple Live Births 0 0 0 0 0 0 # Outcome Date GA Lbr Cristo/2nd Weight Sex Type Anes PTL Lv 1 Current Past Medical History: Past Medical History: Diagnosis Date Aortic regurgitation 07/08/2012 Aortic stenosis Aortic valve stenosis 07/08/2012 Bicuspid aortic valve Hypertension Menorrhagia Migraine Von Willebrand disease (HCC) Past Surgical History: Past Surgical History: Procedure Laterality Date HAND SURGERY right 4th digit surgery Medications: Current Outpatient Medications on File Prior to Visit Medication Sig Dispense Refill VIT-FE FUMARATE-FA PO Take 1 tablet by mouth daily ondansetron (ZOFRAN-ODT) 4 MG disintegrating tablet (Patient not taking: Reported on 02/15/2024) oxymetazoline (12 HOUR NASAL SPRAY) 0.05 % nasal spray Use daily as directed for 3 days (Patient not taking: Reported on 2023) 1 Bottle 0 No current facility-administered medications on file prior to visit. Allergies: Allergies as of 05/17/2025 - Fully Reviewed 05/17/2025 Allergen Reaction Noted Motrin [ibuprofen] 09/16/2015 Nsaids 05/11/2024 Social History: Social History Socioeconomic History Marital status: Single Spouse name: Not on file Number of children: Not on file Years of education: Not on file Highest education level: Not on file Occupational History Not on file Tobacco Use Smoking status: Never Smokeless tobacco: Never Vaping Use Vaping status: Never Used Substance and Sexual Activity Alcohol use: Not Currently Comment: Socially Drug use: Not Currently Types: Marijuana ([place]) Sexual activity: Yes Partners: Male control/protection: Condom Other Topics Concern Not on file Social History Narrative Not on file Social Drivers of Health Financial Resource Strain: Low Risk (08/18/2023) Overall Financial Resource Strain (CARDIA) Difficulty of Paying Living Expenses: Not hard at all Food Insecurity: Not on file (08/18/2023) Transportation Needs: Unknown (08/18/2023) PRAPARE - Transportation Lack of Transportation (Medical): Not on file Lack of Transportation (Non-Medical): No Physical Activity: Not on file Stress: Not on file Social Connections: Not on file Intimate Partner Violence: Not on file Housing Stability: Unknown (08/18/2023) Housing Stability Vital Sign Unable to Pay for Housing in the Last Year: Not on file Number of Places Lived in the Last Year: Not on file Unstable Housing in the Last Year: No Family History: Family History Problem Relation Age of Onset Cervical Cancer Maternal Grandmother Breast Cancer Maternal Grandmother Liver Cancer Maternal Grandmother Ovarian Cancer Paternal Grandmother Stomach Cancer Paternal Grandmother Vitals: BP: (!) 128/93 Weight - Scale: 94 kg (207 lb 4.8 oz) Pulse: 88 Fundal Height (cm): 33 cm HR: 150 Movement: Present Lab Results: Blood Type/Rh: O pos Antibody Screen: negative Hemoglobin, Hematocrit, Platelets: Hgb 12.8/Hct 37.2/Plt 232 Rubella: non-immune T. Pallidum, IgG: non-reactive Hepatitis B Surface Antigen: non-reactive Hepatitis C Antibody: non-reactive HIV: non-reactive Sickle Cell Screen: negative Gonorrhea: negative Chlamydia: negative Urine culture: negative 12/10/24 Early Hemoglobin A1C: 5.1 1 hour Glucose Tolerance Test: 119 Group B Strep: not yet indicated Cystic Fibrosis Screen: negative First Trimester Screen: not done MSAFP/Multiple Markers: not done Non-Invasive Testing: low risk for aneuploidy Anatomy US (02/17/25): posteior placenta, 3VC, male, normal anatomy Assessment & Plan: Edgar Gifford is a 29 y.o. female at 32w6d Initial Obstetrical Visit - The patient was seen full history and physical was completed/reviewed. - labs completed and reviewed - vitamins prescription not needed per patient - Problem list reviewed and updated - NIPT: low risk - Role of ultrasound in discussed; new MFM referral placed - Gc/Chlam Cultures & Vaginitis: negative previously - Last pap smear 02/09/25- NILM, negative HPV - Tdap vaccination: declined - Rhogam: not indicated - Indications for section: none cHTN (no meds) - BP elevated non severe x2 today - Denies s/sx PreE - Patient was diagnosed with hypertension >10 years ago and previously controlled on Lisinopril,however took her off medications and she has not been considered that diagnosis this - Given patient's history of cHTN and multiple elevated blood pressures, discussed with patient that we will keep this diagnosis in and monitor need for restarting medication - PreE labs ordered today - Encouraged to check BP at home with cuff, Rx sent today - Will begin weekly NST Aortic Valve Stenosis - Patient with history of bicuspid aortic valve with mild aortic stenosis and regurgitation - Follows with cardiology, last appointment 12/27/24 - Last echo 01/14/25 showed mild stenosis and mild-plus regurgitation - echo wnl 03/30/25 - Patient cleared for normal vaginal delivery by cardiology 12/27/24 Von Willebrand Disease - Follows with hematology, last appointment several years ago - Referral to hematology sent today - Consulted with [facility], recommended DDAVP at time of delivery. New MFM referral sent HSV - Patient reports history of oral herpes - Denies history of genital lesions Family History of Congenital Heart Defect - Patient sister with bicuspid aortic valve Family History of Chronic Hypertension - family history of cHTN in patient sister and father THC use - Positive UDS 12/10/24 - Patient reports last use at 20 weeks Upon completion of the visit all questions were answered and the patients follow-up and testing schedule were reviewed. Patient Active Problem List Diagnosis Date Noted HSV infection 05/17/2025 Patient reports history of oral lesions only, suppression not needed Rubella Non-Immune 05/17/2025 Primigravida in second trimester 02/17/2025 cHTN (no meds) 05/26/2013 Bicuspid aortic valve 07/08/2012 Aortic valve stenosis 07/08/2012 echo done March and no obvious abnormalities noted, will need repeated after delivery Aortic regurgitation 07/08/2012 Von Willebrand disease (HCC) Menorrhagia Return in about 1 week (around 05/24/2025) for NST. Emma Nava DO Hot Box Spotter Resident [facility] INSTRUCTIONAL PARAPROFESSIONAL, [facility] 05/17/2025, 5:20 PM * Lalitha Kerr DO - 05/17/2025 4:00 PM EDT Images from the original note were not included. Attending Physician Statement I have discussed the care of Edgar Gifford, including pertinent history and exam findings, with the resident. I have reviewed the olivas elements of all parts of the encounter with the resident. I agree with the assessment, plan and orders as documented by the resident. (GE Modifier) Lalitha Sidhu DO [facility] 05/17/2025, 4:50 PM documented in this encounter Plan of Treatment Upcoming Encounters Date Type Department Care Team (Late st Contact Info) Description 05/25/2025 11:30 AM EDT Routine [facility] Hot Box Spotter [place] [address] [facility] [place] [address] 1 wk nst 05/27/2025 9:45 AM EDT Routine [facility] Maternal Med [address] [facility] [address] [place] [address] Return in about 1 week (around 05/26/2025) for BPP, Umbilical dopplers, -then weekly. 06/03/2025 9:45 AM EDT Routine [facility] [address] [place] [address] 06/07/2025 4:00 PM EDT Routine [facility] Hot Box Spotter [place] [address] [place] [address] Jessika Parrish DO [address] [place] [address] 1 wk ELVIRA/ nst 06/10/2025 9:45 AM EDT Routine [facility] [address] [place] [address] 06/14/2025 4:00 PM EDT Routine [facility] Hot Box Spotter [place] [address] [place] [address] Jessika Parrish DO [address] [place] [address] 1 wk ELVIRA/ nst 06/17/2025 9:45 AM EDT Routine [facility] [address] [place] [address] 06/21/2025 4:00 PM EDT Routine [facility] Hot Box Spotter [place] [address] [place] [address] Jessika Parrish DO [address] [place] [address] 1 wk elvira/nst 06/28/2025 4:00 PM EDT Routine [facility] Hot Box Spotter [place] [address] [place] [address] Jessika Parrish DO [address] [place] [address] 1 wk elvira/nst Scheduled Referrals Name Type Priority Associated Diagnoses Orde r Chetan Francois MD, Hematology/Oncolog y, [facility] Outpatient Referral Routine High-risk in third trimester Von Willebrand disease (HCC) Ordered: 05/17/2025 Luther King MD, Maternal Mediicine, [place] Outpatient Referral Routine High-risk in third trimester Ordered: 05/17/2025 documented as of this encounter Results * (ABNORMAL) Comprehensive Metabolic Panel (05/18/2025 12:41 PM EDT) Sodium 138 136 - 145 mmol/L 05/18/2025 12:41 PM [facility] Potassium 3.6(L) 3.7 - 5.3 mmol/L 05/18/2025 12:41 PM [facility] Chloride 106 98 - 107 mmol/L 05/18/2025 12:41 PM [facility] CO2 21 20 - 31 mmol/L 05/18/2025 12:41 PM [facility] Anion Gap 11 9 - 16 mmol/L 05/18/2025 12:41 PM [facility] Glucose 79 74 - 99 mg/dL 05/18/2025 12:41 PM [facility] BUN 5(L) 6 - 20 mg/dL 05/18/2025 12:41 PM [facility] Creatinine 0.6 0.50 - 0.90 mg/dL 05/18/2025 12:41 PM [facility] Est, Glom Filt Rate >90 >60 mL/min/1.7 3m2 05/18/2025 12:41 PM [facility] Comment: These results are not intended [...] that affects renal tubular secretion. BUN/Creatinine Ratio 8(L) 9 - 20 05/18/2025 12:41 PM EDT [facility] Calcium 9.0 8.6 - 10.4 mg/dL 05/18/2025 12:41 PM EDT [facility] Total Protein 6.0(L) 6.6 - 8.7 g/dL 05/18/2025 12:41 PM EDT [facility] Albumin 3.5 3.5 - 5.2 g/dL 05/18/2025 12:41 PM EDT [facility] Albumin/Globulin Ratio 1.4 1.0 - 2.5 05/18/2025 12:41 PM T [facility] Total Bilirubin 0.2 0.00 - 1.20 mg/dL 05/18/2025 12:41 PM EDT [facility] Alkaline Phosphatase 76 35 - 104 U/L 05/18/2025 12:41 PM T [facility] ALT 23 10 - 35 U/L 05/18/2025 12:41 PM T [facility] AST 24 10 - 35 U/L 05/18/2025 12:41 PM T [facility] Blood BLOOD SPECIMEN / Unknown 05/18/2025 12:41 PM EDT 05/18/2025 12:42 PM EDT us Emma Nava DO CHEMISTRY ORDERABLES Final Resu lt [facility] [address] [phone] * (ABNORMAL) CBC with Auto Differential (05/18/2025 12:41 PM EDT) WBC 7.3 3.5 - 11.3 k/uL 05/18/2025 12:41 PM EDT [facility] RBC 3.88(L) 3.95 - 5.11 m/uL 05/18/2025 12:41 PM [facility] Hemoglobin 10.9(L) 11.9 - 15.1 g/dL 05/18/2025 12:41 PM [facility] Hematocrit 31.5(L) 36.3 - 47.1 % 05/18/2025 12:41 PM [facility] MCV 81.2(L) 82.6 - 102.9 fL 05/18/2025 12:41 PM [facility] MCH 28.1 25.2 - 33.5 pg 05/18/2025 12:41 PM [facility] MCHC 34.6 28.4 - 34.8 g/dL 05/18/2025 12:41 PM [facility] RDW 12.8 11.8 - 14.4 % 05/18/2025 12:41 PM [facility] Platelets 193 138 - 453 k/uL 05/18/2025 12:41 PM [facility] MPV 12.3 8.1 - 13.5 fL 05/18/2025 12:41 PM [facility] NRBC Automated 0.0 0.0 per 100 WBC 05/18/2025 12:41 PM [facility] Neutrophils % 58 36 - 65 % 05/18/2025 12:41 PM [facility] Lymphocytes % 33 24 - 43 % 05/18/2025 12:41 PM [facility] Monocytes % 6 3 - 12 % 05/18/2025 12:41 PM [facility] Eosinophils % 2 1 - 4 % 05/18/2025 12:41 PM [facility] Basophils % 1 0 - 2 % 05/18/2025 12:41 PM [facility] Immature Granulocytes % 0 0 % 05/18/2025 12:41 PM [facility] Neutrophils Absolute 4.22 1.50 - 8.10 k/uL 05/18/2025 12:41 PM [facility] Lymphocytes Absolute 2.40 1.10 - 3.70 k/uL 05/18/2025 12:41 PM EDT [facility] Monocytes Absolute 0.45 0.10 - 1.20 k/uL 05/18/2025 12:41 PM EDT [facility] Eosinophils Absolute 0.11 0.00 - 0.44 k/uL 05/18/2025 12:41 PM EDT [facility] Basophils Absolute 0.04 0.00 - 0.20 k/uL 05/18/2025 12:41 PM EDT [facility] Immature Granulocytes Absolute 0.03 0.00 - 0.30 k/uL 05/18/2025 12:41 PM EDT [facility] Blood BLOOD SPECIMEN / Unknown 05/18/2025 12:41 PM EDT 05/18/2025 12:42 PM EDT Emma Nava DO HEMATOLOGY ORDERABLES Final Res ult Performing Organization Address City/[facility]/ZIP Co de Phone Number [facility] [address] [phone] * Protein / Creatinine Ratio, Urine (05/18/2025 12:40 PM EDT) Total Protein, Urine 14 mg/dL 05/18/2025 12:40 PM EDT [facility] Comment:No normal range esta blished. Creatinine, Ur 211.0 28.0 - 217.0 mg/dL 05/18/2025 12:40 PM EDT [facility] Urine Total Protein Creatinine Ratio 0.07 0.00 - 0.20 05/18/2025 12:40 PM EDT [facility] Urine (Urine) 05/18/2025 12: 40 PM EDT 05/18/2025 12:41 PM EDT Emma Nava DO URINE ORDERABLES Final Result Performing Organization Address [facility]/ZIP Co de Phone Number [facility] [address] [phone] documented in this encounter Visit Diagnoses Diagnosis High-risk in third trimester- Primary 32 weeks gestation of state, incidental Aortic valve stenosis, etiology of cardiac valve disease unspecified Von Willebrand disease (HCC) Von Willebrand's disease HSV infection Herpes simplex without mention of complication Secondary hypertension Other secondary hypertension, unspecified Rubella Non-Immune Other specified complication, antepartum documented in this encounter Care Teams Structural Rigger Relationship Specialty Start Date End Date Oliver Lozano MD PCP - General 01/23/16 documented as of this encounter
--- OUTSIDE RECORDS SUMMARY | 2025-05-18 12:38 | XMS_ITS | Encounter Summary ---
Author Organization [facility] Address [address] [facility], [address] [place] [address] Care Team Providers Care Creative Services Writer Name Role Phone Oliver Lozano MD Primary Care Provider [phone] Encounter Details Date Type Department Care Team (Latest Contact Info) Description 05/18/2025 12:38 PM EDT - 05/18/2025 11:59 PM EDT Hospital Encounter [facility] [address] [id number] High-risk in third trimester; Secondary hypertension Discharge Disposition: Home or Self Care Social History Tobacco Use Types Packs/Day Years [...] on file documented as of this encounter Medications at Time of Discharge Blood Pressure KIT 1 Units by Does not apply route daily 1 kit 05/17/2025 VIT-FE FUMARATE-FA PO Take 1 tablet by mouth daily ondansetron (ZOFRAN-ODT) 4 MG disintegrating tablet oxymetazoline (12 HOUR NASAL SPRAY) 0.05 % nasal spray Use daily as directed for 3 days 1 Bottle 08/11/2020 documented as of this encounter Plan of Treatment Upcoming Encounters Date Type Department Care Team (Late st Contact Info) Description 05/25/2025 11:30 AM EDT Routine [facility] Electronics Tester [place] [address] [place] [address] 1 wk nst 05/27/2025 9:45 AM EDT [facility] [address] [place] [address] Return in about 1 week (around 05/26/2025) for BPP, Umbilical dopplers, -then weekly. 06/03/2025 9:45 AM EDT [facility] [address] [place] [address] 06/07/2025 4:00 PM EDT [facility] Tester [place] [address] [place] [address] Jessika Parrish DO [address] [place] [address] 1 wk ELVIRA/ nst 06/10/2025 9:45 AM EDT [facility] [address] [place] [address] 06/14/2025 4:00 PM EDT [facility] [place] [address] [place] [address] Jessika Parrish DO [address] [place] [address] 1 wk ELVIRA/ nst 06/17/2025 9:45 AM EDT [facility] [address] [place] [address] 06/21/2025 4:00 PM EDT [facility] T[facility] [place] [address] [place] [address] Jessika Parrish DO [address] [place] [address] 1 wk elvira/nst 06/28/2025 4:00 PM EDT Routine [facility] Electronics Tester [place] [address] [place] [address] Jaelyn ParrishhDO [address] [place] [address] 1 wk elvira/nst documented as of this encounter Procedures Procedure Name Priority Date/Time Associated Diagnosis Comments CBC WITH AUTO DIFFERENTIAL Routine 05/18/2025 12:41 PM EDT High-risk in third trimester Secondary hypertension COMPREHENSIVE METABOLIC PANEL Routine 05/18/2025 12:41 PM EDT High-risk in third trimester Secondary hypertension PROTEIN / CREATININE RATIO, URINE Routine 05/18/2025 12:40 PM EDT High-risk in third trimester Secondary hypertension documented in this encounter Results * (ABNORMAL) CBC with Auto Differential (05/18/2025 12:41 PM EDT) Pathologist [facility] WBC 7.3 3.5 - 11.3 k/uL 05/18/2025 12:41 PM EDT [facility] RBC 3.88(L) 3.95 - 5.11 m/uL 05/18/2025 12:41 PM EDT [facility] Hemoglobin 10.9(L) 11.9 - 15.1 g/dL 05/18/2025 12:41 PM EDT [facility] Hematocrit 31.5(L) 36.3 - 47.1 % 05/18/2025 12:41 PM EDT [facility] MCV 81.2(L) 82.6 - 102.9 fL 05/18/2025 12:41 PM EDT [facility] MCH 28.1 25.2 - 33.5 pg 05/18/2025 12:41 PM EDT [facility] MCHC 34.6 28.4 - 34.8 g/dL 05/18/2025 12:41 PM EDT [facility] RDW 12.8 11.8 - 14.4 % 05/18/2025 12:41 PM [facility] Platelets 193 138 - 453 k/uL 05/18/2025 12:41 PM [facility] MPV 12.3 8.1 - 13.5 fL 05/18/2025 12:41 PM [facility] NRBC Automated 0.0 0.0 per 100 WBC 05/18/2025 12:41 PM [facility] Neutrophils % 58 36 - 65 % 05/18/2025 12:41 PM [facility] Lymphocytes % 33 24 - 43 % 05/18/2025 12:41 PM [facility] Monocytes % 6 3 - 12 % 05/18/2025 12:41 PM [facility] Eosinophils % 2 1 - 4 % 05/18/2025 12:41 PM [facility] Basophils % 1 0 - 2 % 05/18/2025 12:41 PM [facility] Immature Granulocytes % 0 0 % 05/18/2025 12:41 PM [facility] Neutrophils Absolute 4.22 1.50 - 8.10 k/uL 05/18/2025 12:41 PM [facility] Lymphocytes Absolute 2.40 1.10 - 3.70 k/uL 05/18/2025 12:41 PM [facility] Monocytes Absolute 0.45 0.10 - 1.20 k/uL 05/18/2025 12:41 PM [facility] Eosinophils Absolute 0.11 0.00 - 0.44 k/uL 05/18/2025 12:41 PM [facility] Basophils Absolute 0.04 0.00 - 0.20 k/uL 05/18/2025 12:41 PM [facility] Immature Granulocytes Absolute 0.03 0.00 - 0.30 k/uL 05/18/2025 12:41 PM [facility] Blood BLOOD SPECIMEN / Unknown 05/18/2025 12:41 PM EDT 05/18/2025 12:42 PM EDT us Emma Jacob Lisaphillip DO HEMATOLOGY ORDERABLES Final Res ult [facility] [address] [id number], [facility] [phone] * (ABNORMAL) Comprehensive Metabolic Panel (05/18/2025 12:41 PM EDT) Sodium 138 136 - 145 mmol/L 05/18/2025 12:41 PM EDT [facility] Potassium 3.6(L) 3.7 - 5.3 mmol/L 05/18/2025 12:41 PM EDT [facility] Chloride 106 98 - 107 mmol/L 05/18/2025 12:41 PM EDT [facility] CO2 21 20 - 31 mmol/L 05/18/2025 12:41 PM EDT [facility] Anion Gap 11 9 - 16 mmol/L 05/18/2025 12:41 PM EDT [facility] Glucose 79 74 - 99 mg/dL 05/18/2025 12:41 PM T [facility] BUN 5(L) 6 - 20 mg/dL 05/18/2025 12:41 PM T [facility] Creatinine 0.6 0.50 - 0.90 mg/dL 05/18/2025 12:41 PM EDT [facility] Est, Glom Filt Rate >90 >60 mL/min/1.7 3m2 05/18/2025 12:41 PM EDT [facility] Comment: These results are not intended [...] 9 - 20 05/18/2025 12:41 PM EDT [facility] Calcium 9.0 8.6 - 10.4 mg/dL 05/18/2025 12:41 PM EDT [facility] Total Protein 6.0(L) 6.6 - 8.7 g/dL 05/18/2025 12:41 PM EDT [facility] Albumin 3.5 3.5 - 5.2 g/dL 05/18/2025 12:41 PM EDT [facility] Albumin/Globulin Ratio 1.4 1.0 - 2.5 05/18/2025 12:41 PM EDT [facility] Total Bilirubin 0.2 0.00 - 1.20 mg/dL 05/18/2025 12:41 PM EDT [facility] Alkaline Phosphatase 76 35 - 104 U/L 05/18/2025 12:41 PM EDT [facility] ALT 23 10 - 35 U/L 05/18/2025 12:41 PM EDT [facility] AST 24 10 - 35 U/L 05/18/2025 12:41 PM EDT [facility] Blood BLOOD SPECIMEN / Unknown 05/18/2025 12:41 PM EDT 05/18/2025 12:42 PM EDT Emma Nava DO CHEMISTRY ORDERABLES Final Resu lt [facility] [address] [phone] * Protein / Creatinine Ratio, Urine (05/18/2025 12:40 PM EDT) Total Protein, Urine 14 mg/dL 05/18/2025 12:40 PM EDT [facility] Comment:No normal range esta blished. Creatinine, Ur 211.0 28.0 - 217.0 mg/dL 05/18/2025 12:40 PM EDT [facility] Urine Total Protein Creatinine Ratio 0.07 0.00 - 0.20 05/18/2025 12:40 PM EDT [facility] Urine (Urine) 05/18/2025 12: 40 PM EDT 05/18/2025 12:41 PM EDT Emma Nava DO URINE ORDERABLES Final Result [facility] [address] [phone] documented in this encounter Visit Diagnoses Diagnosis High-risk in third trimester Secondary hypertension Other secondary hypertension, unspecified documented in this encounter Care Teams Creative Services Writer Relationship Specialty Start Date End Date Oliver Lozano MD PCP - General 01/23/16 documented as of this encounter
--- OUTSIDE RECORDS SUMMARY | 2025-05-19 09:15 | XMS_ITS | Encounter Summary ---
Author Organization [facility] Address [address] [facility], [address] [place] [address] Care Team Providers Care Computer Help Desk Specialist Name Role Phone Oliver Lozano MD Primary Care Provider Reason for Referral * Other (Routine) - Open Specialty Diagnoses / Procedures Referred By Contac t Referred To Contact Radiology Diagnoses 33 weeks gestation of Poor growth affecting management of mother in third trimester, single or unspecified fetus Primigravida in third trimester Von Willebrand disease (HCC) Secondary hypertension Aortic valve insufficiency, etiology of cardiac valve disease unspecified Aortic valve stenosis, etiology of cardiac valve disease unspecified Bicuspid aortic valve Procedures US OB > 14 weeks single fetus Luther George MD [address] [address] Phone: tel: fax: Referral ID Status Reason Start Date Expiration Date Visits Re quested Visits Authorized [id number] Open 05/19/2025 05/19/2026 1 1 * Imaging (Routine) - Open Specialty Diagnoses / Procedures Referred By Contac t Referred To Contact Radiology Diagnoses 33 weeks gestation of Poor growth affecting management of mother in third trimester, single or unspecified fetus Primigravida in third trimester Von Willebrand disease (HCC) Secondary hypertension Aortic valve insufficiency, etiology of cardiac valve disease unspecified Aortic valve stenosis, etiology of cardiac valve disease unspecified Bicuspid aortic valve Procedures US DOPPLER UMBILICAL ARTERY Luther George MD [address] [place] [address] Phone: tel: fax: Referral ID Status Reason Start Date Expiration Date Visits Re quested Visits Authorized [id number] Open 05/19/2025 05/19/2026 1 1 * Imaging (Routine) - Open Specialty Diagnoses / Procedures Referred By Jhonny langley Referred To Contact Radiology Diagnoses 33 weeks gestation of Poor growth affecting management of mother in third trimester, single or unspecified fetus Primigravida in third trimester Von Willebrand disease (HCC) Secondary hypertension Aortic valve insufficiency, etiology of cardiac valve disease unspecified Aortic valve stenosis, etiology of cardiac valve disease unspecified Bicuspid aortic valve Procedures US BIOPHYSICAL PROFILE WO NON STRESS TESTING Luther George MD [address] [facility] [address] [place] [address] Phone: tel: fax: Referral ID Status Reason Start Date Expiration Date Visits Re quested Visits Authorized [id number] Open 05/19/2025 05/19/2026 1 1 Reason for Visit * Reason Comments Other [facility] visit * Eval and Treat (Routine) - Closed Specialty Diagnoses / Procedures Referred By Jhonny langley Referred To Contact Maternal & Medicine / Perinatology Diagnoses High-risk in third trimester Emma Nava DO [address] [place] [address] Phone: tel: fax: Luther George MD [address] [place] [address] Phone: tel: fax: Referral ID Status Reason Start Date Expiration Date V isits Requested Visits Authorized [id number] Closed Specialty Services Required 05/17/2025 05/17/2026 1 1 Encounter Details Date Type Department Care Team (Latest Contact Info) Description 05/19/2025 9:15 AM EDT Routine [facility] [address] [facility] [address] [place] [phone] Luther George MD [address] [facility] [place], [place] [phone] 33 weeks gestation of (Primary Dx); Poor growth affecting management of mother in third trimester, single or unspecified fetus; Primigravida in third trimester; Von Willebrand disease (HCC); Secondary hypertension; Aortic valve insufficiency, etiology of cardiac valve disease unspecified; Aortic valve stenosis, etiology of cardiac valve disease unspecified; Bicuspid aortic valve Social History Tobacco Use Types Packs/Day Years [...] Sign Reading Time Taken Comments Blood Pressure 114/80 05/19/2025 9:15 AM EDT Pulse 102 05/19/2025 9:15 AM EDT Temperature 36.3 C (97.3 F) 05/19/2025 9:15 AM EDT Respiratory Rate 16 05/19/2025 9:15 AM EDT Oxygen Saturation - - Inhaled Oxygen Concentration - - Weight 92.1 kg (203 lb) 05/19/2025 9:15 AM EDT Height 157.5 cm (5' 2 ) 05/19/2025 9:15 AM EDT Body Mass Index 37.13 05/19/2025 9:15 AM EDT documented in this encounter Patient Instructions * Patient Instructions* Kiara Carmona - 05/19/2025 9:19 AM EDT Pt advised to f/u with referring physician documented in this encounter Progress Notes * Luther George MD - 05/19/2025 10:40 AM EDT [facility] [address] [address] Dept: [phone] 05/19/2025 RE: Edgar Gifford : 1995 AGE: [address] Madera, Thank you for allowing me to see Edgar Gifford. As I'm sure you will recall, Edgar Gifford hailey 29 y.o. [id number]'s last menstrual period was 09/29/2024 (exact date). Estimated Date of Delivery: 07/06/25 at 33w1d seen in our office today for the following: REASON FOR VISIT: Growth, BPP, umbilical Dopplers Patient Active Problem List Diagnosis Date Noted 33 weeks gestation of 05/19/2025 Poor growth affecting management of mother in third trimester 05/19/2025 HSV infection 05/17/2025 Rubella Non-Immune 05/17/2025 Primigravida in third trimester 02/17/2025 cHTN (no meds) 05/26/2013 Bicuspid aortic valve 07/08/2012 Aortic valve stenosis 07/08/2012 Aortic regurgitation 07/08/2012 Von Willebrand disease (HCC) Menorrhagia PAST HISTORY: OB History Para Term AB Living 1 0 0 0 0 0 SAB IAB Ectopic Molar Multiple Live Births 0 0 0 0 # Outcome Date GA Lbr Cristo/2nd Weight Sex Type Anes PTL Lv 1 Current MEDICAL: Past Medical History: Diagnosis Date Aortic regurgitation 07/08/2012 Aortic stenosis Aortic valve stenosis 07/08/2012 Bicuspid aortic valve Hypertension Menorrhagia Migraine Von Willebrand disease (HCC) SURGICAL: Past Surgical History: Procedure Laterality Date HAND SURGERY right 4th digit surgery ALLERGIES: Allergies Allergen Reactions Motrin [Ibuprofen] Bruising t/o the body Nsaids Other Reaction(s): Unknown MEDICATIONS: Current Outpatient Medications Medication Sig Dispense Refill VIT-FE FUMARATE-FA PO Take 1 tablet by mouth daily Blood Pressure KIT 1 Units by Does not apply route daily (Patient not taking: Reported on 05/19/2025)1 kit 0 ondansetron (ZOFRAN-ODT) 4 MG disintegrating tablet (Patient not taking: Reported on 05/19/2025) oxymetazoline (12 HOUR NASAL SPRAY) 0.05 % nasal spray Use daily as directed for 3 days (Patient not taking: Reported on 05/19/2025) 1 Bottle 0 No current facility-administered medications for this visit. Social History Socioeconomic History Marital status: Single Tobacco Use Smoking status: Never Smokeless tobacco: Never Vaping Use Vaping status: Never Used Substance and Sexual Activity Alcohol use: Not Currently Comment: Socially Drug use: Not Currently Types: Marijuana ([place]) Sexual activity: Yes Partners: Male control/protection: Condom Social Drivers of Health Financial Resource Strain: Low Risk (08/18/2023) Overall Financial Resource Strain (CARDIA) Difficulty of Paying Living Expenses: Not hard at all Transportation Needs: Unknown (08/18/2023) PRAPARE - Transportation Lack of Transportation (Non-Medical): No Housing Stability: Unknown (08/18/2023) Housing Stability Vital Sign Unstable Housing in the Last Year: No FAMILY MEDICAL HISTORY: Family History Problem Relation Age of Onset Cervical Cancer Maternal Grandmother Breast Cancer Maternal Grandmother Liver Cancer Maternal Grandmother Ovarian Cancer Paternal Grandmother Stomach Cancer Paternal Grandmother PHYSICAL EXAMINATION: BP 114/80 Pulse (!) 102 Temp 97.3 ??F (36.3 ??C) Resp 16 Ht 1.575 m (5' 2 ) Wt 92.1 kg (203 lb) LMP 09/29/2024 (Exact Date) Body mass index is 37.13 kg/m??. Urine dipstick: No results found for this visit on 05/19/25. A/an growth, BPP, umbilical Dopplers ultrasound was done in our office today. Please refer to the enclosed copy of the ultrasound report for further information. Discussion: 1. Treviño fetus in a cephalic presentation. motion and cardiac motion is seen and appears normal. 2. intrauterine growth restriction present today with the AC <10%. 3. No obvious anomalies are noted. We were not able to complete the repeat anatomical survey today due to maternal body habitus. 4. The placenta is posterior. The amniotic fluid is normal. 5. Biophysical profile is 05/20. 6. Umbilical artery doppler waveforms are reassuring for gestational age. IMPRESSION: 1. Single intrauterine gestation at 33+ weeks with appropriate growth but IUGR by abdominal circumference. 2. No obvious anomalies are noted. The fetus is in a vertex presentation. 3. The amniotic fluid volume is normal and the placenta is posterior. RECOMMENDATIONS: Each of the recommendations were discussed with the patient: 1. Begin weekly antepartum testing including nonstress test and umbilical Dopplers. 2. Growth ultrasounds every 3 weeks. 3. Delivery between 37 and 38 weeks gestation depending on blood pressure control. 4. Follow-up would be otherwise as clinically indicated. The patient is to continue to follow with you in your office for ongoing obstetric care. PLAN: As noted above or sooner prn. Sincerely, Luther George MD * Svetlana Mcgovern - 05/19/2025 10:12 AM EDT Please refer to attached ultrasound report for doctor's evaluation of the clinical information obtained by vital signs, ultrasound, and/or non-stress test along with management recommendation. documented in this encounter Plan of Treatment Upcoming Encounters Date Type Department Care Team (Late st Contact Info) Description 05/25/2025 11:30 AM EDT [facility] [address] [address] 1 wk nst 05/27/2025 9:45 AM EDT [facility] [address] [place] [phone] Return in about 1 week (around 05/26/2025) for BPP, Umbilical dopplers, -then weekly. 06/03/2025 9:45 AM EDT [facility] [address] [place] [phone] 06/07/2025 4:00 PM EDT [facility] [address] [phone] Jessika Parrish DO [address] [place] [phone] 1 wk ELVIRA/ nst 06/10/2025 9:45 AM EDT [facility] [address] [place] [phone] 06/14/2025 4:00 PM EDT Routine [facility] [place] [address] [facility] [address] [place] [phone] [place] [address] [place] [address] 1 wk ELVIRA/ nst 06/17/2025 9:45 AM EDT Routine [facility] [address] [facility] [address] [place] [phone] 06/21/2025 4:00 PM EDT Routine [facility] [place] [address] [facility] [address] [place] [address] Jessika Parrish DO [facility] [place] [address] 1 wk elvira/nst 06/28/2025 4:00 PM EDT Routine [facility] [address] [address] Jaelyn Parrishh [address] [place] [address] 1 wk elvira/nst documented as of this encounter Procedures Procedure Name Priority Date/Time Associated Diagnosis Comments US DOPPLER UMBILICAL ARTERY Routine 05/19/2025 33 weeks gestation of Poor growth affecting management of mother in third trimester, single or unspecified fetus Primigravida in third trimester Von Willebrand disease (HCC) Secondary hypertension Aortic valve insufficiency, etiology of cardiac valve disease unspecified Aortic valve stenosis, etiology of cardiac valve disease unspecified Bicuspid aortic valve US OB GREATER THAN 14 WEEKS SINGLE FETUS Routine 05/19/2025 33 weeks gestation of Poor growth affecting management of mother in third trimester, single or unspecified fetus Primigravida in third trimester Von Willebrand disease (HCC) Secondary hypertension Aortic valve insufficiency, etiology of cardiac valve disease unspecified Aortic valve stenosis, etiology of cardiac valve disease unspecified Bicuspid aortic valve US BIOPHYSICAL PROFILE WO NON STRESS TESTING Routine 05/19/2025 33 weeks gestation of Poor growth affecting management of mother in third trimester, single or unspecified fetus Primigravida in third trimester Von Willebrand disease (HCC) Secondary hypertension Aortic valve insufficiency, etiology of cardiac valve disease unspecified Aortic valve stenosis, etiology of cardiac valve disease unspecified Bicuspid aortic valve documented in this encounter Results * US OB > 14 weeks single fetus (05/19/2025) Anatomical Region Laterality Modality Abdomen, Pelvis Other Luther George MD [facility] ORDERABLES Final Result * US DOPPLER UMBILICAL ARTERY (05/19/2025) Anatomical Region Laterality Modality Vascular Other Luther George MD [facility] ORDERABLES Final Result * US BIOPHYSICAL PROFILE WO NON STRESS TESTING (05/19/2025) Anatomical Region Laterality Modality Pelvis Other Luther George MD [facility] ORDERABLES Final Result documented in this encounter Visit Diagnoses Diagnosis 33 weeks gestation of - Primary state, incidental Poor growth affecting management of mother in third trimester, single or unspecified fetus Primigravida in third trimester Von Willebrand disease (HCC) Von Willebrand's disease Secondary hypertension Other secondary hypertension, unspecified Aortic valve insufficiency, etiology of cardiac valve disease unspecified Aortic valve stenosis, etiology of cardiac valve disease unspecified Bicuspid aortic valve Congenital insufficiency of aortic valve documented in this encounter Care Teams Computer Help Desk Specialist Relationship Specialty Start Date End Date Oliver Lozano MD PCP - General 01/23/16 documented as of this encounter
--- NOTE | 2025-05-24 | US_ITS ---
[address] [address] Patient Name: MARGARET ORTIZ MRN: [id number] date: 1995 Sex: F Assigned Patient Location: [facility] Current Patient Location: [facility] Accession/Order Number: [id number] Exam Date: 05/24/2025 14:53 Report Date: 05/24/2025 14:53 At the request of: CRESENCIO RAPP Procedure: US OB BPP w non-stress Biophysical profile. Reason for exam: Von Willebrand disease COMPARISON: 05/10/2025 TECHNIQUE: Transabdominal imaging of the gravid uterus was obtained. FINDINGS: The industrial maintenance technician reports a BPP of 8 out of 8. ISABELL is normal at 17.4 cm. heart rate 148 bpm. US/US OB BPP w non-stress IMPRESSION: BPP 8 out of 8. Impression dictated by: Parrish Wise Jr., D.O. 05/24/2025 2:53 PM Dictation Location: [place] [address] Electronically authenticated by: [id number] Y Date: 05/24/2025 14:53
--- OUTSIDE RECORDS SUMMARY | 2025-05-24 13:20 | XMS_ITS | Encounter Summary ---
Author Organization [facility] Address [address] [place] [address] Care Team Providers Care Drywall Application Supervisor Name Role Phone Unallocated, Noms Provider Primary Care Provi zoltan Reason for Visit * Reason Comments Routine Visit Encounter Details Date Type Department Care Team (Late st Contact Info) Description 05/24/2025 1:20 PM EDT Routine [facility]ons OBGYN [address] [place] [address] Jung Serrato DO [address] [facility] [address] Joyce Parsons, [facility]11 Third trimester ([facility]); 33 weeks gestation of ([facility]); Cold sore; Von Willebrand disease (HCC); Aortic valve stenosis, etiology of cardiac valve disease unspecified Social History Tobacco Use Types Packs/Day Years [...] Reading Time Taken Comments Blood Pressure 120/74 05/24/2025 1:50 PM EDT Pulse - - Temperature - - Respiratory Rate - - Oxygen Saturation - - Inhaled Oxygen Concentration - - Weight 93.2 kg (205 lb 6.4 oz) 05/24/2025 1:50 P M EDT Height - - Body Mass Index 37.57 06/02/2024 1:03 PM EDT documented in this encounter Plan of Treatment Not on file documented as of this encounter Procedures Procedure Name Priority Date/Time Associated Diagnosis Comments POCT URINALYSIS DIPSTICK Routine 05/24/2025 1:56 PM EDT Third trimester ([facility]) 33 weeks gestation of ([facility] documented in this encounter Results * (ABNORMAL) POCT urinalysis dipstick manually resulted (05/24/2025 1:56 PM EDT) Color, UA Starla Clarity, UA Clear Glucose, UA Negative Negative - 2000(110) ++++ mg/dL Bilirubin, UA Positive Negative - 4(70) +++ mg/dL Ketones, UA Negative Negative - 160(16) ++++ mg/dL Spec Grav, UA 1.030 1 - 1.03 Blood, UA Negative Negative - 50 Stanford/mcL pH, UA 5.5 5 - 9 Protein, UA Positive Negative - 2000(20) ++++ mg/dL Urobilinogen, UA 1.0 0.2 - 12 mg/dL Leukocytes, UA Negative Negative - 500+++ Yoni/mcL Nitrite, UA Negative Negative - Positive Urine 05/24/2025 1:56 PM EDT Jung Serrato DO POINT OF CARE TEST ENTER/EDIT OR DERABLES Final Result documented in this encounter Visit Diagnoses Diagnosis Third trimester ([facility]) state, incidental 33 weeks gestation of ([facility]) Cold sore Herpes simplex without mention of complication Von Willebrand disease ([facility]) Von Willebrand's disease Aortic valve stenosis, etiology of cardiac valve disease unspecified documented in this encounter Care Teams Drywall Application Supervisor Relationship Specialty Start Date End Date Unallocated, Noms Provider, [place] [address] PCP - General Family Medicine 03/17/25 documented as of this encounter
--- OUTSIDE RECORDS SUMMARY | 2025-05-24 14:16 | XMS_ITS | Patient Health Record ---
Author Organization The [facility] [place] Address [address] [place] [address] Care Team Providers Care Retention Representative Name Role Phone Oliver Lozano MD Primary Care Provider Reba Chicas Unavailable [phone] Reason For Referral No Information Encounters Encounter Location Date Provider Diagnosis [facility] On[facility] [address] [place] [address] 06/22/2024 Reba Tovar Plan Of Treatment No Information
--- OUTSIDE RECORDS SUMMARY | 2025-05-24 14:16 | XMS_ITS | Clinical Summary ---
Author Organization [facility] Address [address] [place] [address] Care Team Providers Care Coal Hiker Name Role Phone Unallocated, Noms Provider Primary Care Provi zoltan Allergies Active Allergy Reactions Criticality Noted Date Comments Ibuprofen Medium 09/16/2015 Bruising t/o the body Other Reaction(s): Other Nsaids 05/11/2024 Other Reaction(s): Unknown Medications magnesium oxide (Mag-Ox) 400 MG tabletIndicatio ns: headache in second trimester ([facility]) Take 1 tablet (400 mg) by mouth Daily 30 tablet 11 5 02/29/20 26 Active Vit-DSS-Fe Fum-FA ( 19) tabletIndicatio ns:Second trimester ([facility]) Take 1 tablet by mouth Daily 30 tablet 11 5 04/26/20 26 Active acyclovir (Zovirax) 400 MG tablet Take 400 mg by mouth Active valACYclovir (Valtrex) 500 MG tabletIndicatio ns:Third trimester ([facility]) Take 1 tablet (500 mg) by mouth Daily 90 tablet 3 5 05/05/20 26 Active Vit-Fe Fumarate-FA ( 19 PO) Take 1 tablet by mouth Daily 04/26/20 25 Discontinu ed(Reorder ) Active Problems Problem Noted Date Diagnosed Date Aortic valve stenosis 01/06/2025 14 weeks gestation of ([facility]) 2024 Second trimester ([facility]) 01/06/2025 Von Willebrand disease 01/06/2025 Estimated Date of Delivery Comme nts Yes 07/06/2025 Based on last me nstrual period of 09/29/2024 Encounters Date Type Department Care Team Description 05/24/2025 1:20 PM EDT Routine [facility] [address] [place] [address] Bety Serrato, Third trimester ([facility]); 33 weeks gestation of ([facility]); Cold sore; Von Willebrand disease ([facility]); Aortic valve stenosis, etiology of cardiac valve disease unspecified 05/24/2025 Bamboo flowsheet [facility] [address] [place] [address] Bety Serrato DO 05/19/2025 Abstract [facility] [address] [place] [address] Apple Ambrocio MA 05/18/2025 Clinisync Result Encounter NOMS External Department Unsolicited Provider, Generic External Data 05/10/2025 1:50 PM EDT Routine [facility] COURTNEYN [address] [place] [address] Leyla Rapp PA Third trimester ([facility]); 31 weeks gestation of ([facility]); Cold sore 05/10/2025 Clinisync Result Encounter NOMS External Department Unsolicited Provider, Generic External Data 05/10/2025 Bamboo flowsheet [facility] [address] [place] [address] Leyla Rapp PA 05/03/2025 Clinisync Result Encounter NOMS External Department Unsolicited Provider, Generic External Data 04/26/2025 Refill [facility] [address] [place] [address] Edilia Brady LPN Second trimester ([facility]) 04/25/2025 Orders Only [facility] [address] [place] [address] Unallocated, Noms MD Heriberto 04/22/2025 Clinisync Result Encounter NOMS External Department Unsolicited Ming Louis External Data 04/22/2025 Telephone [facility] [address] [facility] [place] [address] Sanjana Monaco LPN 04/21/2025 Telephone [facility] [address] [place] [address] Apple Ambrocio, [place] 04/19/2025 11:00 AM EDT Routine [facility] [address] [facility] [place] [address] Leyla Rapp PA 28 weeks gestation of ([facility]); Von Willebrand disease ([facility]); Aortic valve stenosis, etiology of cardiac valve disease unspecified 04/19/2025 Bamboo flowsheet [facility] [address] [facility] [place] [address] Leyla Rapp PA 03/24/2025 Abstract [facility] [address] [facility] [place] [address] Apple Ambrocio [place] 03/22/2025 Clinisync Result Encounter NOMS External Department Unsolicited Bety Serrato DO 03/14/2025 1:30 PM EDT Routine [facility] [address] [facility] [place] [address] Bety Serrato DO Second trimester ([facility]); 23 weeks gestation of ([facility]); Diabetes mellitus screening 03/14/2025 Abstract [facility] [address] [facility] [place] [address] Bety Serrato DO 03/14/2025 Abstract [facility] [address] [place] [address] Ama Bety, DO 03/14/2025 Telephone [facility] [address] [place] [address] Ama Bety, DO 02/28/2025 Telephone [facility] [address] [place] [address] Edilia Brady LPN from Last 3 Months Family History Medical [...] oz) 05/24/2025 1:50 P M EDT Height 157.5 cm (5' 2 ) 06/02/2024 1:03 PM EDT Body Mass Index 37.57 06/02/2024 1:03 PM EDT Plan of Treatment Health Maintenance Due Date Last Done Comments HPV/Cotest 2024 Influenza Vaccine (#1) 2025 2, 07/05/2011, 07/18/2010, Additional history exists Cervical Cancer Screening 02/10/2028 Pap Smear 02/10/2028 02/09/2025, 08/18/2018 Procedures Procedure Name Priority Date/Time Associated Diagnosis Comments POCT URINALYSIS DIPSTICK Routine 05/24/2025 1:56 PM EDT Third trimester ([facility]) 33 weeks gestation of ([facility]) MHPT COMP METABOLIC PROF Routine 05/18/2025 12:41 PM EDT MHPT CBC WITH DIFF Routine 05/18/2025 12 :41 PM EDT MHPT PROTEIN,TOT,RAND UR Routine 05/18/2025 12:40 PM EDT US OB BPP W NON-STRESS 05/10/2025 3:42 PM EDT US OB BPP W NON-STRESS 05/03/2025 4:24 PM EDT US OB GROWTH 04/22/2025 4:39 PM EDT US OB SCAN FOR GROWTH Routine 04/22/2025 9:24 AM EDT POCT URINALYSIS DIPSTICK Routine 04/19/2025 11:47 AM EDT 28 weeks gestation of ([facility]) MHPT GLUCOSE MISAEL SCR 50G Routine 03/22/2025 10:33 AM EDT ALL CBC WITH AUTO DIFF Routine 03/22/2025 10:33 AM EDT POCT URINALYSIS DIPSTICK Routine 03/14/2025 1:51 PM EDT Second trimester ([facility]) 23 weeks gestation of ([facility]) PAP SMEAR Routine 02/09/2025 12:00 AM EDT from Last 3 Months or Most Recently Relevant to Health Maintenance Results * (ABNORMAL) POCT urinalysis dipstick manually resulted (05/24/2025 1:56 PM EDT) Only the most recent of3 resultswithin the time period is included. Color, UA Starla Clarity, UA Clear Glucose, [...] - Positive Urine 05/24/2025 1:56 PM EDT Bety Serrato DO POINT OF CARE TEST ENTER/EDIT OR DERABLES Final Result * (ABNORMAL) MHPT COMP METABOLIC PROF (05/18/2025 12:41 PM EDT) MHPT NA (SODIUM) 138 136 - 145 mmol/L MHPT MHPT K (POTASSIUM) 3.6(L) 3.7 - 5.3 mmol/L MHPT MHPT CHLORIDE 106 98 - 107 mmol/L MHPT MHPT CO2 21 20 - 31 mmol/L MHPT MHPT ANION GAP 11 9 - 16 mmol/L MHPT MHPT GLUCOSE 79 74 - 99 mg/dL MHPT MHPT BUN (UREA N) 5(L) 6 - 20 mg/dL MHPT MHPT CREATININE 0.6 0.50 - 0.90 mg/dL MHPT MHPT EGFR >90 >60 mL/min/1.7 3m2 MHPT Comment: These results are not intended for [...] following therapy that affects renal tubular secretion. MHPT BUN/CRE RATIO 8(L) 9 - 20 MHPT MHPT CALCIUM 9.0 8.6 - 10.4 mg/dL MHPT MHPT PROTEIN, TOTAL 6.0(L) 6.6 - 8.7 g/dL MHPT MHPT ALBUMIN 3.5 3.5 - 5.2 g/dL MHPT MHPT ALBUMIN/GLOB RATIO 1.4 1.0 - 2.5 MHPT MHPT BILIRUBIN, TOTAL 0.2 0.00 - 1.20 mg/dL MHPT MHPT ALKALINE PHOS 76 35 - 104 U/L MHPT MHPT ALT 23 10 - 35 U/L MHPT MHPT AST 24 10 - 35 U/L MHPT 05/18/2025 12:4 1 PM EDT 05/18/2025 12:42 PM EDT Narrative CLINISYNC - 05/18/2025 2:06 PM EDT Original Ordering Provider: MARCUS BURNHAM us Generic External Data Provider CLINISYNC F inal Result CLINISYNC MHPT * (ABNORMAL) MHPT CBC WITH DIFF (05/18/2025 12:41 PM EDT) MHPT WBC COUNT 7.3 3.5 - 11.3 k/uL MHPT MHPT RBC COUNT 3.88(L) 3.95 - 5.11 m/uL MHPT MHPT HEMOGLOBIN 10.9(L) 11.9 - 15.1 g/dL MHPT MHPT HEMATOCRIT 31.5(L) 36.3 - 47.1 % MHPT MHPT MCV 81.2(L) 82.6 - 102.9 fL MHPT MHPT MCH 28.1 25.2 - 33.5 pg MHPT MHPT MCHC 34.6 28.4 - 34.8 g/dL MHPT MHPT RDW 12.8 11.8 - 14.4 % MHPT MHPT PLATELET COUNT 193 138 - 453 k/uL MHPT MHPT MPV 12.3 8.1 - 13.5 fL MHPT MHPT NRBC AUTOMATED 0.0 0.0 per 100 WBC MHPT MHPT NEUTROPHIL (SEG) 58 36 - 65 % MHPT MHPT LYMPHOCYTE 33 24 - 43 % MHPT MHPT MONOCYTE 6 3 - 12 % MHPT MHPT EOSINOPHIL 2 1 - 4 % MHPT MHPT BASOPHIL 1 0 - 2 % MHPT MHPT IMMATURE GRANULOCYTE 0 0 % MHPT MHPT ABS.NEUTROPHIL (SEG) 4.22 1.50 - 8.10 k/uL MHPT MHPT ABS. LYMPH 2.40 1.10 - 3.70 k/uL MHPT MHPT ABS. MONOCYTE 0.45 0.10 - 1.20 k/uL MHPT MHPT ABS. EOSINOPHIL 0.11 0.00 - 0.44 k/uL MHPT MHPT ABS. BASOPHIL 0.04 0.00 - 0.20 k/uL MHPT MHPT ABS.IMM.GRANULOC YTE 0.03 0.00 - 0.30 k/uL MHPT 05/18/2025 12:4 1 PM EDT 05/18/2025 12:42 PM EDT Narrative CLINISYNC - 05/18/2025 1:42 PM EDT Original Ordering Provider: MARCUS BURNHAM Generic External Data Provider DANTEISYNC F inal Result Performing Organization Address City/[facility] Co de Phone Number CLINHARLEYNC MHPT * MHPT PROTEIN,TOT,RAND UR (05/18/2025 12:40 PM EDT) MHPT TOT PROT. CONC. 14 mg/dL MHPT Comment:No normal range esta blished. MHPT CREATININE CONC. 211.0 28.0 - 217.0 mg/dL MHPT MHPT TP/CRE RATIO 0.07 0.00 - 0.20 MHPT 05/18/2025 12:4 0 PM EDT 05/18/2025 12:41 PM EDT Narrative CLINISYNC - 05/18/2025 2:16 PM EDT Original Ordering Provider: MARCUS BURNHAM Generic External Data Provider DANTEISYNC F inal Result Performing Organization Address City/[facility] Co de Phone Number ALEXANDRONC MHPT * US OB BPP W NON-STRESS (05/10/2025 3:42 PM EDT) Only the most recent of2 resultswithin the time period is included. Anatomical Region Laterality Modality Other 05/10/2025 3:42 PM EDT Narrative 05/10/2025 3:45 PM EDT The [address] [address] Ultrasound Report Signed Patient: EDGAR ORTIZ MR#: [id number] : 1995 Acct:[id number] Age/Sex: 29 / F ADM Date: 05/10/25 Loc: [facility] 250-[address]: Leyla Rapp Ordering Physician: Leyla Rapp Date of Service: 05/10/25 Procedure(s): US OB BPP w non-stress Accession Number(s): [id number] cc: Leyla Rapp; JOI LEWIS [place] [address] Patient Name: EDGAR ORTIZ MRN: [facility]:[id number] date: 1995 Sex: F Assigned Patient Location: [facility] Current Patient Location: [facility] Accession/Order Number: [id number] Exam Date: 05/10/2025 15:37 Report Date: 05/10/2025 15:42 At the request of: LEYLA RAPP Procedure: US OB BPP w non-stress Biophysical profile. Reason for exam: Von Willebrand disease COMPARISON: 05/03/2025 TECHNIQUE: Transabdominal imaging of the gravid uterus was obtained. FINDINGS: The academic affairs vice president reports a BPP of 8 out of 8. ISABELL is normal at 13.7 cm. heart rate 142 bpm. US/US OB BPP w non-stress IMPRESSION: BPP 8 out of 8. Impression dictated by: Parrish Wise Jr., D.O. 05/10/2025 3:42 PM Dictation Location: [place] [address] Electronically authenticated by: [id number] Y Date: 05/10/2025 15:42 Dictated By: Parrish Wise M.D. Signed By: 05/10/25 1545 DD/ 1542 TD/TT: Outpatient Case Manager: Procedure Note Radiology, Radiologist, - 05/10/2025 [place] [address] Ultrasound Report Signed Patient: EDGAR ORTIZ MMR#: [id number] : 1995Acct:[id number] Age/Sex: 29 / FADM Date: 05/10/25 Loc: [facility] 250-[address]: Leyla Rapp Ordering Physician: Leyla Rapp Date of Service: 05/10/25 Procedure(s): US OB BPP w non-stress Accession Number(s): [id number] cc: Leyla Rapp; JOI LEWIS [place] [address] Patient Name: EDGAR ORTIZ MRN: [facility]:[id number] date: 1995 Sex: F Assigned Patient Location: [facility] Current Patient Location: [facility] Accession/Order Number: [id number] Exam Date: 05/10/2025 15:37 Report Date: 05/10/2025 15:42 At the request of: LELYA RAPP Procedure: US OB BPP w non-stress Biophysical profile. Reason for exam: Von Willebrand disease COMPARISON: 05/03/2025 TECHNIQUE: Transabdominal imaging of the gravid uterus was obtained. FINDINGS: The academic affairs vice president reports a BPP of 8 out of 8. ISABELL is normal at13.7 cm. heart rate 142 bpm. US/US OB BPP w non-stress IMPRESSION: BPP 8 out of 8. Impression dictated by: Parrish Wise Jr., D.O. 05/10/2025 3:42 PM Dictation Location: [place] [address] Electronically authenticated by: [id number] Y Date: 5:42 Dictated By: Parrish Wise M.D. Signed By:05/10/25 1545 DD/ 1542 TD/TT: Outpatient Case Manager: us Generic External Data Provider CLINISYNC IMAGING Final Result * US OB GROWTH (04/22/2025 4:39 PM EDT) Anatomical Region Laterality Modality Other 04/22/2025 4:39 PM EDT Narrative 04/22/2025 4:41 [place] [address] Ultrasound Report Signed Patient: EDGAR ORTIZ MR#: [id number] : 1995 Acct:[id number] Age/Sex: 29 / F ADM Date: 04/22/25 Loc: US Attending Dr: Leyla Rapp Ordering Physician: Leyla Rapp Date of Service: 04/22/25 Procedure(s): US OB growth Accession Number(s): [id number] cc: Leyla Rapp; JOI LEWIS The [place] [address] Patient Name: EDGAR ORTIZ MRN: [facility]:[id number] date: 1995 Sex: F Assigned Patient Location: US Current Patient Location: US Accession/Order Number: [id number] Exam Date: 04/22/2025 16:36 Report Date: 04/22/2025 [...] Lovett M.D. 04/22/2025 4:39 PM Dictation Location: [place] [address] Electronically authenticated by: [id number] Y Date: 04/22/2025 16:39 Dictated By: Tyson Lovett M.D. Signed By: 04/22/25 1641 DD/ 1639 TD/TT: Outpatient Case Manager: Procedure Note Radiology, Radiologist, - 04/22/2025 [place] [address] Ultrasound Report Signed Patient: EDGAR ORTIZ MMR#: [id number] : 1995Acct:[id number] Age/Sex: 29 / FADM Date: 04/22/25 Loc: US Attending Dr: Leyla Rapp Ordering Physician: Leyla Rapp Date of Service: 04/22/25 Procedure(s): US OB growth Accession Number(s): [id number] cc: eLyla Rapp; JOI LEWIS [address] [address] Patient Name: EDGAR ORTIZ MRN: [facility]:[id number] date: 1995 Sex: F Assigned Patient Location: US Current Patient Location: US Accession/Order Number: [id number] Exam Date: 04/22/2025 16:36 Report Date: 04/22/2025 [...] Lovett M.D. 04/22/2025 4:39 PM Dictation Location: [place] [address] Electronically authenticated by: [id number] Y Date: 6:39 Dictated By: Tyson Lovett M.D. Signed By:04/22/25 164 DD/ 163 TD/TT: Outpatient Case Manager: us Generic External Data Provider CLINISYNC IMAGING Final Result * US OB SCAN FOR GROWTH (04/22/2025 9:24 AM EDT) Anatomical Region Laterality Modality Body Ultrasound us Noms Provider Unallocated MD MURCIA OB US PROCEDURE S Final Result * MHPT GLUCOSE MISAEL SCR 50G (03/22/2025 10:33 AM EDT) MHPT GLU ADMINISTERED VIA Glucola MHPT MHPT GLUCOSE,MISAEL SCR 50G 119 70 - 135 mg/dL MHPT 03/22/2025 10:3 3 AM EDT 03/22/2025 10:34 AM EDT Narrative CLINISYNC - 03/22/2025 12:44 PM EDT Original Ordering Provider: BETY MCNALLY us Bety DURON Final Result CLINISYNC MHPT * (ABNORMAL) ALL CBC WITH AUTO [...] 10:34 AM EDT Narrative CLINISYNC - 03/22/2025 12:22 PM EDT Original Ordering Provider: BETY MCNALLY us Generic External Data Provider GREGG Blair inal Result CLINHARLEYNC MHPT * Pap Smear (02/09/2025 12:00 AM EDT) Swab Cervical swab / Unknown us Aga Shore ORDER SCHEDULE CLERK LAB CYTOLOGY ORDERABLES Final Result EXTERNAL LAB from Last 3 Months or Most Recently Relevant to Health Maintenance Insurance [employer] [place] Care Teams Coal Hiker Relationship Specialty Start Date End Date Unallocated, Noms Heriberto, [address] [place] [address] PCP - General Family Medicine 03/17/25
--- OUTSIDE RECORDS SUMMARY | 2025-05-24 14:16 | XMS_ITS | Encounter Summary ---
Author Organization [facility] Address [address] [place] [address] Care Team Providers Care Raw Stock Machine Loader Name Role Phone Oliver Lozano MD Primary Care Provider [phone] Unallocated, Yanique Louis MD Primary Care Provi zoltan Encounter Details Date Type Department Care Team (Late st Contact Info) Description 03/14/2025 Abstract [facility] O[facility] [address] [place] [phone] Jung Serrato DO [address] [facility] [address] [place], [place] [id number] Social History Tobacco Use Types Packs/Day Years [...] as of this encounter Plan of Treatment Not on file documented as of this encounter Visit Diagnoses Not on filedocumented in this encounter Care Teams Raw Stock Machine Loader Relationship Specialty Start Date End Date Oliver Lozano MD [address] [place] [address] PCP - General Internal Medicine 02/18/23 03/16/25 Unallocated, Noms Provider, [address] [place] [address] PCP - General Family Medicine 03/17/25 documented as of this encounter
--- OUTSIDE RECORDS SUMMARY | 2025-05-24 14:16 | XMS_ITS | Encounter Summary ---
Author Organization [facility] Address [address] [place] [address] Care Team Providers Care Metal Buildings Assembler Name Role Phone Unallocated, Yanique Provider Primary Care Provi zoltan Encounter Details Date Type Department Care Team (Late st Contact Info) Description 03/24/2025 Abstract YANIQUE DRAPER [address] [place] [address] [place] [phone] Apple Ambrocio MA Social History Tobacco Use [...] filedocumented in this encounter Care Teams Metal Buildings Assembler Relationship Specialty Start Date End Date Unallocated, [place] [address] PCP - General Family Medicine 03/17/25 documented as of this encounter
--- OUTSIDE RECORDS SUMMARY | 2025-05-24 14:16 | XMS_ITS | Encounter Summary ---
Author Organization [facility] Address [address] [place] [address] Care Team Providers Care Brush Holder Assembler Name Role Phone Unallocated, Noms Provider Primary Care Provi zoltan Encounter Details Date Type Department Care Team (Late st Contact Info) Description 04/25/2025 Orders Only YANIQUE Monge Internal Medicine [address] [facility] [address] [place] [phone] Unallocated, Noms Provider, [address] [place] [address] Social History Tobacco Use Types Packs/Day Years [...] on filedocumented in this encounter Care Teams Brush Holder Assembler Relationship Specialty Start Date End Date Unallocated, Noms Provider, [place] [address] PCP - General Family Medicine 03/17/25 documented as of this encounter
--- OUTSIDE RECORDS SUMMARY | 2025-05-24 14:16 | XMS_ITS | Encounter Summary ---
Author Organization [facility] Address [address] [facility] [place] [address] Care Team Providers Care Aircraft Metalsmith Name Role Phone Oliver Lozano MD Primary Care Provider [phone] Unallocated, Noms Provider Primary Care Provi zoltan Encounter Details Date Type Department Care Team (Late st Contact Info) Description 02/18/2025 Orders Only Y[facility]QUE [facility]ons OBGYN [address] [place] [address] [place] [address] Apple Ambrocio MA Social History Tobacco Use [...] Cervical swab / Unknown us Aga Shore ACID ETCH OPERATOR LAB CYTOLOGY ORDERABLES Final Result EXTERNAL LAB documented in this encounter Visit Diagnoses Not on filedocumented in this encounter Care Teams Aircraft Metalsmith Relationship Specialty Start Date End Date Oliver Lozano MD [address] [place] [address] PCP - General Internal Medicine 02/18/23 03/16/25 Unallocated, Noms Provider, [address] [place] [address] PCP - General Family Medicine 03/17/25 documented as of this encounter
--- OUTSIDE RECORDS SUMMARY | 2025-05-24 14:16 | XMS_ITS | Encounter Summary ---
Author Organization [facility] Address [address] [place] [place] [address] Care Team Providers Care Cosmetics Machine Operator Name Role Phone Oliver Lozano MD Primary Care Provider [phone] Unallocated, Yanique Louis MD Primary Care Provi zoltan Encounter Details Date Type Department Care Team (Late st Contact Info) Description 02/18/2025 Abstract Y[facility]QUE [facility]ons OBGYN [address] [place] [phone] Jung Serrato DO [address] [place], [place] [id number] Social History Tobacco Use Types Packs/Day Years [...] on filedocumented in this encounter Care Teams Cosmetics Machine Operator Relationship Specialty Start Date End Date Oliver Lozano MD [address] [place] [address] PCP - General Internal Medicine 02/18/23 03/16/25 Unallocated, Noms Provider, [address] [address] PCP - General Family Medicine 03/17/25 documented as of this encounter
--- OUTSIDE RECORDS SUMMARY | 2025-05-24 14:16 | XMS_ITS | Encounter Summary ---
Author Organization [facility] Address [address] [place] [address] Care Team Providers Care Adjunct Instructor Name Role Phone Unallocated, Noms Provider Primary Care Provi zoltan Encounter Details Date Type Department Care Team (Late st Contact Info) Description 05/10/2025 Bamboo flowsheet YANIQUE Parsons OBGYJulius [address] [facility] [place] [phone] Leyla Matt PA [address] [facility] [facility] [address] [place], [facility] Social History Tobacco Use Types Packs/Day [...] on filedocumented in this encounter Care Teams Adjunct Instructor Relationship Specialty Start Date End Date Unallocated, Noms Provider[place] [address] PCP - General Family Medicine 03/17/25 documented as of this encounter
--- OUTSIDE RECORDS SUMMARY | 2025-05-24 14:17 | XMS_ITS | Encounter Summary ---
Author Organization [facility] Address [address], [address] [place] [address] Care Team Providers Care Exhibit Cleaner Name Role Phone Oliver Lozano MD Primary Care Provider [phone] Reason for Referral * Imaging (Routine) - Closed Specialty Diagnoses / Procedures Referred By Contac t Referred To Contact Radiology Diagnoses Other specified abnormal findings of blood chemistry Procedures MRI BRAIN W WO CONTRAST Jung Serrato MD [address] [place] [address] Phone: tel: Referral ID Status Reason Start Date Expiration Date Visits Re quested Visits Authorized [id number] Closed 06/03/2024 06/03/2025 1 1 Encounter Details Date Type Department Care Team (Late st Contact Info) Description 06/03/2024 Transcribe Orders [place] Pre Access [address] [place] [address] Jung Serrato MD [address] [place] [address] Other [...] place to sleep or slept in a chcf (including now)? No 08/18/2023 Food Insecurity Answer [...] Description 05/25/2025 11:30 AM EDT [facility] Systems Consultant Allen [address] [place] [address] 1 wk nst 05/27/2025 9:45 AM EDT Routine [facility] [address] [place] [address] Return in about 1 week (around 05/26/2025) for BPP, Umbilical dopplers, -then weekly. 06/03/2025 9:45 AM EDT Routine [facility] [address] [place] [address] 06/07/2025 4:00 PM EDT Routine [facility] Consultant Allen [address] [place] [address] Jessika Parrish DO [address] [place] [address] 1 wk ELVIRA/ nst 06/10/2025 9:45 AM EDT Routine [facility] [address] [place] [address] 06/14/2025 4:00 PM EDT Routine [facility] Systems Consultant Shickley [address] [place] [address] Jessika Parrish DO [address] [place] [address] 1 wk ELVIRA/ nst 06/17/2025 9:45 AM EDT Routine [facility] [address] [place] [address] 06/21/2025 4:00 PM EDT Routine [facility] Consultant Allen [address] [place] [address] Jessika Parrish DO [address] [place] [address] 1 wk elvira/nst 06/28/2025 4:00 PM EDT Routine [facility] Network Systems Consultant Shickley [address] [facility] [address] [place] [phone] FrancoisJessika DO [address] [place] [address] 1 wk elvira/nst documented as of this encounter Results * [...] HISTORY: Other specified abnormal findings of blood deck scaler PROVIDED HISTORY: STAT Creatinine as needed:->No FINDINGS: [...] PROVIDED HISTORY: Other specified abnormal findings ofblood deck scaler PROVIDED HISTORY: STAT Creatinine as needed:->No FINDINGS: [...] intracranial abnormality. 2. Normal pituitary gland. Jung Wes Serrato MD [facility] ORDERABLES Final Result documented in this encounter Visit Diagnoses Diagnosis Other specified abnormal findings of blood chemistry- Primary Other specified abnormal findings of blood chemistry documented in this encounter Care Teams Exhibit Cleaner Relationship Specialty Start Date End Date Oliver Lozano MD PCP - General 01/23/16 documented as of this encounter
--- OUTSIDE RECORDS SUMMARY | 2025-05-24 14:17 | XMS_ITS | Encounter Summary ---
Author Organization [facility] Address [address], [address] [place] [address] Care Team Providers Care Wire Frame Lampshade Maker Name Role Phone Oliver Lozano MD Primary Care Provider Encounter Details Date Type Department Care Team (Late st Contact Info) Description 05/18/2025 Results Follow-Up [facility] [address] [place] [address] Emma Nava, DO [address] [place] [address] Social History Tobacco Use Types Packs/Day Years [...] Info) Description 05/25/2025 11:30 AM EDT Routine [facility] Band Presser Barbara [address] [place] [address] 1 wk nst 05/27/2025 9:45 AM EDT Routine [facility] [address] [facility] [address] [place] [address] Return in about 1 week (around 05/26/2025) for BPP, Umbilical dopplers, -then weekly. 06/03/2025 9:45 AM EDT [facility] [address] [place] [address] 06/07/2025 4:00 PM EDT [facility] Band Presser Barbara [address] [place] [address] Jessika Parrish DO [address] [place] [address] 1 wk ELVIRA/ nst 06/10/2025 9:45 AM EDT [facility] [address] [place] [address] 06/14/2025 4:00 PM EDT [facility] Band Presser Barbara [address] [place] [address] Jessika Parrish DO [address] [place] [address] 1 wk ELVIRA/ nst 06/17/2025 9:45 AM EDT [facility] [address] [place] [address] 06/21/2025 4:00 PM EDT [facility] Band Presser Barbara [address] [place] [address] Jessika Parrish DO [address] [place] [address] 1 wk elvira/nst 06/28/2025 4:00 PM EDT [facility]er Barbara [address] [place] [address] Jessika Parrish DO [address] [place] [address] 1 wk elvira/nst documented as of this encounter Visit Diagnoses Not on filedocumented in this encounter Care Teams Wire Frame Lampshade Maker Relationship Specialty Start Date End Date Oliver Lozano MD PCP - General 01/23/16 documented as of this encounter
--- OUTSIDE RECORDS SUMMARY | 2025-05-24 14:17 | XMS_ITS | Encounter Summary ---
Author Organization [facility] Address [address], [address] [place] [address] Care Team Providers Care Hand I Cutter Name Role Phone Oliver Lozano MD Primary Care Provider [phone] Reason for Referral * Imaging (Routine) - Pending Review Specialty Diagnoses / Procedures Referred By Jhonny langley Referred To Contact Radiology Diagnoses Dyspareunia, female Abnormal uterine bleeding Procedures US PELVIS COMPLETE Jung Serrato MD [address] [place] [address] Phone: tel: Referral ID Status Reason Start Date Expiration Date V isits Requested Visits Authorized [id number] Pending Review 05/27/2024 05/27/2025 1 1 Encounter Details Date Type Department Care Team (Late st Contact Info) Description 05/27/2024 Transcribe Orders [place] Pre Access [address] [place] [address] Jung Serrato MD [address] [place] [address] Dyspareunia, female (Primary Dx); Abnormal [...] 11:30 AM EDT [facility] Architectural Practice Manager Barbara [address] [place] [address] 1 wk nst 05/27/2025 9:45 AM EDT [facility] [address] [place] [address] Return in about 1 week (around 05/26/2025) for BPP, Umbilical dopplers, -then weekly. 06/03/2025 9:45 AM EDT [facility] [address] [place] [address] 06/07/2025 4:00 PM EDT [facility]ural Practice Manager Barbara [address] [place] [address] Jessika Parrish DO [address] [place] [address] 1 wk ELVIRA/ nst 06/10/2025 9:45 AM EDT [facility] [address] [place] [address] 06/14/2025 4:00 PM EDT [facility] Practice Manager Barbara [address] [place] [address] Jessika Parrish DO [address] [place] [address] 1 wk ELVIRA/ nst 06/17/2025 9:45 AM EDT [facility] [address] [place] [address] 06/21/2025 4:00 PM EDT [facility] Manager Barbara [address] [place] [address] Jessika Parrish DO [address] [place] [address] 1 wk elvira/nst 06/28/2025 4:00 PM EDT Routine [facility] Architectural Practice Manager Barbara [address] [place] [address], [place] [address] Jessika Parrish DO [address] [place] [address] 1 wk elvira/nst documented as of this [...] tract documented in this encounter Care Teams Hand I Cutter Relationship Specialty Start Date End Date Oliver Lozano MD PCP - General 01/23/16 documented as of this encounter
--- OUTSIDE RECORDS SUMMARY | 2025-05-24 14:17 | XMS_ITS | Encounter Summary ---
Author Organization [facility] Address [address] [place] [address] Care Team Providers Care Aligning Checker Name Role Phone Unallocated, Noms Provider Primary Care Provi zoltan Encounter Details Date Type Department Care Team (Late st Contact Info) Description 05/24/2025 Bamboo flowsheet YANIQUE Parsons OBGYN [address] [place] [phone] Jung Serrato DO [address] [facility] [address] Joyce Parsons, [facility]11 Social History Tobacco Use Types Packs/Day [...] on filedocumented in this encounter Care Teams Aligning Checker Relationship Specialty Start Date End Date Unallocated, Noms Provider, [place] [address] PCP - General Family Medicine 03/17/25 documented as of this encounter
--- OUTSIDE RECORDS SUMMARY | 2025-05-24 14:17 | XMS_ITS | Clinical Summary ---
Author Organization [facility] Address [address] [place] [address] Care Team Providers Care Oil Lease Buyer Name Role Phone Geneva Ch DO Primary Care Pr ovider Allergies No known active allergies Medications lansoprazole (PREVACID) 30 mg capsule Take 1 capsule by mouth once daily. 0 01/11/2013 Active lisinopril 2.5 mg tablet Take 2.5 mg by mouth once daily. Active TOPIRAMATE (TOPAMAX ORAL) Take 100 mg by mouth. Active Desmopressin Acetate (STIMATE) 150 mcg/spray [place] Use 1 [place] in the nose once daily as needed. 2.5 mL 6 07/26/2013 Active Desmopressin Acetate (STIMATE) 150 mcg/spray spry Use 1 [place] in the nose as needed. 2.5 mL 3 05/17/2014 Active Desmopressin Acetate (STIMATE) 150 mcg/spray (0.1 mL) spry Use 1 [place] in the nose as needed. 2.5 mL [...] 3-dose series) 11/10 Cervical Cancer Screening 2015 HPV Vaccine (1 - 3-dose SCDM series) 2021 Influenza Vaccine (#1) 2025 Insurance Care Teams Oil Lease Buyer Relationship Specialty Start Date End Date Geneva Ch DO PCP - General Pediatrics 12/28/12
--- OUTSIDE RECORDS SUMMARY | 2025-05-24 14:18 | XMS_ITS | Encounter Summary ---
Author Organization [facility] Address [address] [place] [place] [address] Care Team Providers Care Report Clerk Name Role Phone Oliver Lozano MD Primary Care Provider [phone] Unallocated, Yanique [place] MD Primary Care Provi zoltan Encounter Details Date Type Department Care Team (Late st Contact Info) Description 01/12/2025 Abstract YANIQUE Parsons OBGYN [address] [place] [phone] Jung Serrato DO [address] Joyce Parsons, [place] [phone] Social History Tobacco Use Types Packs/Day Years [...] on filedocumented in this encounter Care Teams Report Clerk Relationship Specialty Start Date End Date Oliver Lozano MD [address] [place] [address] PCP - General Internal Medicine 02/18/23 03/16/25 Unallocated, Noms Provider, [address] [address] PCP - General Family Medicine 03/17/25 documented as of this encounter
--- OUTSIDE RECORDS SUMMARY | 2025-05-24 14:18 | XMS_ITS | Clinical Summary ---
Author Organization [facility] Address [address] [place] [address] Care Team Providers Care Retail Merchandiser Technician Name Role Phone Oliver Lozano MD Primary Care Provider [phone] Allergies Active Allergy Reactions Criticality Noted Date [...] Description 05/02/2025 2:00 PM EDT Office Visit [address] [phone] Blayne Smalls MD Aortic regurgitation due to bicuspid aortic valve (Primary Dx); Aortic stenosis due to bicuspid aortic valve; Aortic valve regurgitation due to aortic dilation; Von Willebrand disease ([facility]/HCC); 30 weeks gestation of from Last 3 Months Social History Tobacco [...] Description 10/20/2025 11:00 AM EST Office Visit [facility] [place] [address] [place] [address] Blayne Smalls MD [address] [place] [address] Health Maintenance Due Date Last Done Comments Depression Screening 2006 Varicella Vaccines (1 of 2 - 13+ 2-dose series) 09/11/2009 Pneumococcal Vaccine: Pediatrics (0 to 5 Years) and At-Risk Patients (6 to 64 Years) (1 of 2 - PCV) 2013 Adult Tetanus 2016 04/28/2007 COVID-19 Vaccine (1 - 2023- season) 2024 HPV/Cotest 2024 Influenza Vaccine (#1) [...] patient's age to complete this topic Insurance [facility] [employer] Care Teams Retail Merchandiser Technician Relationship Specialty Start Date End Date Oliver Lozano MD [address] [place] [address] PCP - General Internal Medicine 12/27/24
--- OUTSIDE RECORDS SUMMARY | 2025-05-24 14:18 | XMS_ITS | Encounter Summary ---
Author Organization [facility] Address [address] [place] [address] Care Team Providers Care Art History Instructor Name Role Phone Oliver Lozano MD Primary Care Provider [phone] Unallocated, Noms Provider Primary Care Provi zoltan Encounter Details Date Type Department Care Team (Late st Contact Info) Description 06/23/2024 Clinisync Result Encounter [facility] External Department Unsolicited Bety Serrato, DO [address] [facility] [address] [place] [phone] Social History Tobacco Use Types Packs/Day Years [...] AM EDT Narrative 06/23/2024 8:50 AM EDT The [address] [address] XRay Report Signed Patient: ANGELMARGARET CHANG MR#: [id number] : 1995 Acct:[id number] Age/Sex: 28 / F ADM Date: 06/21/24 Loc: PST Attending Dr: Bety Serrato D.O. Ordering Physician: Bety Serrato D.O. Date of Service: 06/21/24 Procedure(s): XR chest 2V Accession Number(s): [id number] cc: Bety Serrato D.O.; Physician,Non-Staff Yaneth The [place] [address] Patient Name: MARGARET GIFFORD MRN: [id number] date: 1995 Sex: F Assigned Patient Location: [facility] Current Patient Location: Accession/Order Number: [id number] Exam Date: 06/21/2024 11:40 Report Date: 06/23/2024 [...] Dictated By: Gerardo Hidalgo M.D. Signed By: 06/23/24 0850 DD/ 0847 TD/TT: Machine Overhauler: Procedure Note Radiology, Radiologist, MD - 06/23/2024 [place] [address] XRay Report Signed Patient: MARGARET GIFFORD MMR#: [id number] : 1995Acct:[id number] Age/Sex: 28 / FADM Date: 06/21/24 Loc: PST Attending Dr: Bety Serrato D.O. Ordering Physician: Bety Serrato D.O. Date of Service: 06/21/24 Procedure(s): XR chest 2V Accession Number(s): [id number] cc: Bety Serrato D.O.; Physician,Non-Staff Yaneth [place] [address] Patient Name: MARGARET GIFFORD MRN: [id number] date: 1995 Sex: F Assigned Patient Location: [facility] Current Patient Location: Accession/Order Number: [id number] Exam Date: 06/21/2024 11:40 Report Date: 06/23/2024 [...] Hidalgo M.D. Signed By:06/23/2450 DD/ 6 TD/TT: Machine Overhauler: us Bety Serrato DO [facility] Final Result documented in this encounter Visit Diagnoses Not on filedocumented in this encounter Care Teams Art History Instructor Relationship Specialty Start Date End Date Oliver Lozano MD [address] [place] [address] PCP - General Internal Medicine 02/18/23 03/16/25 Unallocated, Noms Provider, MD [address] [place], [place] [address] PCP - General Family Medicine 03/17/25 documented as of this encounter
--- OUTSIDE RECORDS SUMMARY | 2025-05-24 14:18 | XMS_ITS | Encounter Summary ---
Author Organization [facility] Address [address] [place] [address] Care Team Providers Care Handle Bar Assembler Name Role Phone Oliver Lozano MD Primary Care Provider [phone] Unallocated, Noms Provider Primary Care Provi zoltan Encounter Details Date Type Department Care Team (Late st Contact Info) Description 06/21/2024 Clinisync Result Encounter [facility] External Department Unsolicited Bety Serrato, DO [address] [facility] [address] [place] [phone] Social History Tobacco Use Types Packs/Day Years [...] EDT Narrative 06/21/2024 10:50 PM EDT The [address] [address] Electrocardiograph Report Signed Patient: MARGARET GIFFORD MR#: [id number] : 1995 Acct:[id number] Age/Sex: 28 / F ADM Date: 06/21/24 Loc: PST Attending Dr: Bety Serrato D.O. Ordering Physician: Bety Serrato D.O. Date of Service: 06/21/24 Procedure(s): ECG 12 lead Accession Number(s): [id number] cc: [facility] Test Date: 2024-06-21 Pat Name: MARGARET GIFFORD Department: Room: - Gender: Female Dispatch Clerk: : 1995 Requested By: BETY SERRATO Order Number: [id number] Reading MD: KRISHNA EWING Measurements Intervals [place] Rate: 69 P: 25 [place]: 155 QRS: 17 QRSD: 78 T: 19 QT: 360 QTc: 387 Interpretive Statements SINUS RHYTHM No previous ECG available for comparison Electronically Signed On 06-21-2024 22:49:48 EDT by KRISHNA EWING Dictated By: Krishna Ewing D.O. Signed By: 06/21/24 2250 DD/ 1135 TD/TT: Ammonia Still Operator: Procedure Note Radiology, Radiologist, MD - 06/21/2024 [place] [address] Electrocardiograph Report Signed Patient: MARGARET GIFFORD MMR#: [id number] : 1995Acct:[id number] Age/Sex: 28 / FADM Date: 06/21/24 Loc: EDER Attending Dr: Bety Serrato D.O. Ordering Physician: Bety Serrato D.O. Date of Service: 06/21/24 Procedure(s): ECG 12 lead Accession Number(s): [id number] cc: [facility] Test Date: 2024-06-21 Pat Name: MARGARET GIFFORD Department: Room: - Gender: Female Dispatch Clerk: : 1995 Requested By: BETY SERRATO Order Number: [id number] Reading MD: KRISHNA EWING Measurements Intervals [place] Rate: 69 P: 25 [place]: 155 QRS: 17 QRSD: 78 T: 19 QT: 360 QTc: 387 Interpretive Statements SINUS RHYTHM No previous ECG available for comparison Electronically Signed On 06-21-2024 22:49:48 EDT by KRISHNA EWING Dictated By: Krishna Ewing D.O. Signed By:06/21/24 2870 DD/ 1135 TD/TT: Ammonia Still Operator: us Bety Ama DO [facility] Final Result documented in this encounter Visit Diagnoses Not on filedocumented in this encounter Care Teams Handle Bar Assembler Relationship Specialty Start Date End Date Oliver Lozano MD [address] [place] [address] PCP - General Internal Medicine 02/18/23 03/16/25 Unallocated, Noms Provider, [address] [place] [address] PCP - General Family Medicine 03/17/25 documented as of this encounter
--- OUTSIDE RECORDS SUMMARY | 2025-05-24 14:18 | XMS_ITS | Encounter Summary ---
Author Organization [facility] Address [address] [place] [address] Care Team Providers Care Trombone Slide Assembler Name Role Phone Oliver Lozano MD Primary Care Provider [phone] Unallocated, Noms Provider Primary Care Provi zoltan Encounter Details Date Type Department Care Team (Late st Contact Info) Description 06/10/2024 Clinisync Result Encounter [facility] External Department Unsolicited Jung Serrato, DO [address] [facility] [address] [place] [phone] Social History Tobacco Use Types Packs/Day Years [...] HISTORY: Other specified abnormal findings of blood entry level assistant manager PROVIDED HISTORY: STAT Creatinine as needed:->No FINDINGS: [...] PROVIDED HISTORY: Other specified abnormal findings ofblood entry level assistant manager PROVIDED HISTORY: STAT Creatinine as needed:->No FINDINGS: [...] by: Tristen Valdes MD 06/10/24 Final result us Jung Ama DO [facility] Final Result documented in this encounter Visit Diagnoses Not on filedocumented in this encounter Care Teams Trombone Slide Assembler Relationship Specialty Start Date End Date Oliver Lozano MD [address] [place] [address] PCP - General Internal Medicine 02/18/23 03/16/25 Unallocated, Noms Provider, [address] [place] [address] PCP - General Family Medicine 03/17/25 documented as of this encounter
--- OUTSIDE RECORDS SUMMARY | 2025-05-24 14:18 | XMS_ITS | Encounter Summary ---
Author Organization [facility] Address [address] [facility] [place] [address] Care Team Providers Care Traffic Or System Dispatcher Name Role Phone Oliver Lozano MD Primary Care Provider [phone] Unallocated, Noms Provider Primary Care Provi zoltan Encounter Details Date Type Department Care Team (Late st Contact Info) Description 06/01/2024 Abstract YANIQUE Parsons OBGYN [address] [facility] [place] [phone] Jung Serrato DO [address] [facility] [address] [place], [place] [phone] Social History Tobacco Use Types Packs/Day Years [...] on filedocumented in this encounter Care Teams Traffic Or System Dispatcher Relationship Specialty Start Date End Date Oliver Lozano MD [address] [facility] [address] [place] [address] PCP - General Internal Medicine 02/18/23 03/16/25 Unallocated, Noms ProviderMD [address] [place] [address] PCP - General Family Medicine 03/17/25 documented as of this encounter
--- OUTSIDE RECORDS SUMMARY | 2025-05-24 14:18 | XMS_ITS | Encounter Summary ---
Author Organization [facility] Address [address] [place] [address] Care Team Providers Care Regional Clinical Research Associate Name Role Phone Oliver Lozano MD Primary Care Provider [phone] Unallocated, Noms Provider Primary Care Provi zoltan [...] original result was not included. Yaya Rose Helene on 2023 3:19 PM EST UTERUS:anteverted, [...] on filedocumented in this encounter Care Teams Regional Clinical Research Associate Relationship Specialty Start Date End Date Oliver Lozano MD [address] [place] [address] PCP - General Internal Medicine 02/18/23 03/16/25 Unallocated, Noms Provider, [address] [place] [address] PCP - General Family Medicine 03/17/25 documented as of this encounter
--- OUTSIDE RECORDS SUMMARY | 2025-05-24 14:18 | XMS_ITS | Clinical Summary ---
Author Organization [facility] Address [address], [address] [place] [address] Care Team Providers Care Vacuum Caster Name Role Phone Oliver Lozano MD Primary Care Provider [phone] Allergies Active Allergy Reactions Criticality Noted Date Comments Ibuprofen Medium 09/16/2015 Bruising t/o the body Nsaids 05/11/2024 Other Reaction(s): Unknown Medications oxymetazoline (12 HOUR NASAL SPRAY) 0.05 % nasal spray Use daily as directed for 3 days 1 Bottle 08/11/20 20 Active Additional Information Patient not taking.Reported on 05/19/2025 ondansetron (ZOFRAN-ODT) 4 MG disintegrating tablet Active VIT-FE FUMARATE-FA PO Take 1 tablet by mouth daily Active Blood Pressure KIT 1 Units by Does not apply route daily 1 kit 05/17/20 25 Active Additional Information Patient not taking.Reported on 05/19/2025 Active Problems Problem Noted Date Diagnosed Date Poor growth affecting management of mother in third trimester 05/19/2025 HSV infection 05/17/2025 Overview (05/17/2025): Patient reports history of oral lesions only, suppression not needed Rubella Non-Immune 05/17/2025 Primigravida in third trimester 02/17/2025 cHTN (no meds) 05/26/2013 Bicuspid aortic valve 07/08/2012 Aortic valve stenosis 07/08/2012 Overview (05/17/2025): echo done March and no obvious abnormalities noted, will need repeated after delivery Aortic regurgitation 07/08/2012 Von Willebrand disease Menorrhagia Estimated Date of Delivery Comme nts Yes 07/06/2025 Based on last me nstrual period of 09/29/2024 (Exact Date) Resolved Problems Problem Noted Date Diagnosed Date Resolved Date 33 weeks gestation of 05/19/2025 05/20/2025 20 weeks gestation of 02/17/2025 05/17/2025 Encounters Date Type Department Care Team Description 05/19/2025 9:15 AM EDT Routine [facility] [address] [phone] Luther George MD 33 weeks gestation of (Primary Dx); Poor growth affecting management of mother in third trimester, single or unspecified fetus; Primigravida in third trimester; Von Willebrand disease (HCC); Secondary hypertension; Aortic valve insufficiency, etiology of cardiac valve disease unspecified; Aortic valve stenosis, etiology of cardiac valve disease unspecified; Bicuspid aortic valve 05/18/2025 12:38 PM EDT - 05/18/2025 11:59 PM EDT Hospital Encounter [facility] [address] [place] [phone] High-risk in third trimester; Secondary hypertension Discharge Disposition: Home or Self Care 05/18/2025 Results Follow-Up [facility] [address] [place] [address] Emma Nava DO 05/17/2025 4:00 PM EDT Routine [facility] Interior Design Assistant Allen [address] [place] [phone] Emma Nava DO High-risk in third trimester (Primary Dx); 32 weeks gestation of ; Aortic valve stenosis, etiology of cardiac valve disease unspecified; Von Willebrand disease (HCC); HSV infection; Secondary hypertension; Rubella Non-Immune 04/22/2025 Telephone [facility] Interior Design Assistant Allen [address] [place] [address] Lalitha Kerr, DO Care Transitions 03/22/2025 10:31 AM EDT - 03/22/2025 11:59 PM EDT Hospital Encounter [facility] [address] [place], [place] [phone] Discharge Disposition: Home or Self Care 03/19/2025 11:21 AM EDT - 03/19/2025 11:59 PM EDT Hospital Encounter [place] [id number] Discharge Disposition: Home or Self Care 02/24/2025 10:25 PM EDT - 02/25/2025 12:27 AM EDT Emergency [facility] Emergency Department [address] [place], [place] [phone] Firo Villatoro, Headache in , antepartum, second trimester (Primary Dx) Discharge Disposition: Home or Self Care 02/24/2025 Travel from Last 3 Months Family History [...] 16 05/19/2025 9:15 AM EDT Oxygen Saturation 99% 02/24/2025 10:25 PM EDT Inhaled Oxygen Concentration - - Weight 92.1 kg (203 lb) 05/19/2025 9:15 AM EDT Height 157.5 cm (5' 2 ) 05/19/2025 9:15 AM EDT Body Mass Index 37.13 05/19/2025 9:15 AM EDT Plan of Treatment Upcoming Encounters Date Type Department Care Team (Late st Contact Info) Description 05/25/2025 11:30 AM EDT Routine [facility] Interior Design Assistant Allen [facility] [place] [address] 1 wk nst 05/27/2025 9:45 AM EDT Routine [facility] [address] [place] [address] [address] [place] [phone] Return in about 1 week (around 05/26/2025) for BPP, Umbilical dopplers, -then weekly. 06/03/2025 9:45 AM EDT [facility] [address] [place] [address] [phone] 06/07/2025 4:00 PM EDT Routine [facility] Interior Design Assistant [address] [address] Jessika Parrish DO [address] [place] [address] 1 wk ELVIRA/ nst 06/10/2025 9:45 AM EDT [facility] [address] [place] [phone] 06/14/2025 4:00 PM EDT Routine [facility] Interior Design Assistant [address] [address] Jessika Parrish DO [address] [place] [address] 1 wk ELVIRA/ nst 06/17/2025 9:45 AM EDT [facility] [address] [place] [address] [address] 06/21/2025 4:00 PM EDT Routine [facility] Interior Design Assistant [address] [address] Jessika Parrish DO [address] [place] [address] 1 wk elvira/nst 06/28/2025 4:00 PM EDT Routine [facility] Interior Design Assistant Allen [address] [facility] [place] [address] FrancoisDominicJessikaDO [address] [place] [address] 1 wk elvira/nst Health Maintenance Due Date Last Done Comments Varicella vaccine (1 of 2 - 13+ 2-dose series) 2007 Pap smear 2015 DTaP/Tdap/Td vaccine (7 - Td or Tdap) 04/28/2017 04/28/2007, 05/04/1999, 04/05/1996, Additional history exists COVID-19 Vaccine () 06/13/2024 Cervical cancer screen 2024 HPV (without or with Pap) 2024 Depression Screen 02/07/2025 02/08/2024 Tdap Vaccine during 04/06/2025 Flu vaccine (#1) 05/13/2025 06/10/2012, 08/14/2009 Respiratory Syncytial Virus (RSV) or age 60 yrs+ (1 - Risk 1-dose series) 06/13/2025 Hepatitis B vaccine Completed 05/13/1995, 01/13/1995, 1994 Hib vaccine Completed 04/05/1996, 0 10/1994, 03/18/1995, Additional history exists Polio vaccine Completed 05/04/1999, 0 10/1994, 03/18/1995, Additional history exists HPV vaccine [...] Priority Date/Time Associated Diagnosis Comments US OB GREATER THAN 14 WEEKS SINGLE FETUS Routine 05/19/2025 33 weeks gestation of Poor growth affecting management of mother in third trimester, single or unspecified fetus Primigravida in third trimester Von Willebrand disease (HCC) Secondary hypertension Aortic valve insufficiency, etiology of cardiac valve disease unspecified Aortic valve stenosis, etiology of cardiac valve disease unspecified Bicuspid aortic valve US DOPPLER UMBILICAL ARTERY Routine 05/19/2025 33 [...] cardiac valve disease unspecified Bicuspid aortic valve CBC WITH AUTO DIFFERENTIAL Routine 05/18/2025 12:41 PM EDT High-risk in third trimester Secondary hypertension COMPREHENSIVE METABOLIC PANEL Routine 05/18/2025 12:41 PM EDT High-risk in third trimester Secondary hypertension PROTEIN / CREATININE RATIO, URINE Routine 05/18/2025 12:40 PM EDT High-risk in third trimester Secondary hypertension GLUCOSE CHALLENGE GESTATIONAL Routine 03/22/2025 10:33 AM EDT CBC Routine 03/22/2025 10:33 AM EDT MAGNESIUM STAT 02/24/2025 11:15 PM EDT COMPREHENSIVE METABOLIC PANEL W/ REFLEX TO MG FOR LOW K STAT 02/24/2025 11:15 PM EDT CBC WITH AUTO DIFFERENTIAL STAT 02/24/2025 11:15 PM EDT MICROSCOPIC URINALYSIS Routine 02/24/2025 11:10 PM EDT URINALYSIS WITH REFLEX TO CULTURE STAT 02/24/2025 11:10 PM EDT PROTEIN / CREATININE RATIO, URINE STAT 02/24/2025 11:10 PM EDT HIV SCREEN Routine 2023 3:30 PM EST Routine screening for STI (sexually transmitted infection) HEPATITIS C ANTIBODY Routine 2023 3:30 PM EST Routine screening for STI (sexually transmitted infection) from Last 3 Months or Most Recently Relevant to Health Maintenance Results * US DOPPLER UMBILICAL ARTERY (05/19/2025) Anatomical Region Laterality Modality Vascular Other Luther George MD [facility] US ORDERABLES Final Result * US OB > 14 weeks single fetus (05/19/2025) Anatomical Region Laterality Modality Abdomen, Pelvis Other Luther George MD [facility] US ORDERABLES Final Result * US BIOPHYSICAL PROFILE WO NON STRESS TESTING (05/19/2025) Anatomical Region Laterality Modality Pelvis Other Luther George MD [facility] US ORDERABLES Final Result * (ABNORMAL) CBC with Auto Differential (05/18/2025 12:41 PM EDT) Only the most recent of2 resultswithin the time period is included. WBC 7.3 3.5 - 11.3 k/uL 05/18/2025 12:41 PM EDT [facility] RBC 3.88(L) 3.95 - 5.11 m/uL 05/18/2025 12:41 PM EDT [facility] Hemoglobin 10.9(L) 11.9 - 15.1 g/dL 05/18/2025 12:41 PM [facility] Hematocrit 31.5(L) 36.3 - 47.1 % 05/18/2025 12:41 PM [facility] MCV 81.2(L) 82.6 - 102.9 fL 05/18/2025 12:41 PM [facility] MCH 28.1 25.2 - 33.5 pg 05/18/2025 12:41 PM [facility] MCHC 34.6 28.4 - 34.8 g/dL 05/18/2025 12:41 PM [facility] RDW 12.8 11.8 - 14.4 % 05/18/2025 12:41 PM [facility] Platelets 193 138 - 453 k/uL 05/18/2025 12:41 PM [facility] MPV 12.3 8.1 - 13.5 fL 05/18/2025 12:41 PM [facility] NRBC Automated 0.0 0.0 per 100 WBC 05/18/2025 12:41 PM [facility] Neutrophils % 58 36 - 65 % 05/18/2025 12:41 PM [facility] Lymphocytes % 33 24 - 43 % 05/18/2025 12:41 PM [facility] Monocytes % 6 3 - 12 % 05/18/2025 12:41 PM [facility] Eosinophils % 2 1 - 4 % 05/18/2025 12:41 PM [facility] Basophils % 1 0 - 2 % 05/18/2025 12:41 PM [facility] Immature Granulocytes % 0 0 % 05/18/2025 12:41 PM [facility] Neutrophils Absolute 4.22 1.50 - 8.10 k/uL 05/18/2025 12:41 PM [facility] Lymphocytes Absolute 2.40 1.10 - 3.70 k/uL 05/18/2025 12:41 PM [facility] Monocytes Absolute 0.45 0.10 - 1.20 k/uL 05/18/2025 12:41 PM EDT [facility] Eosinophils Absolute 0.11 0.00 - 0.44 k/uL 05/18/2025 12:41 PM EDT [facility] Basophils Absolute 0.04 0.00 - 0.20 k/uL 05/18/2025 12:41 PM EDT [facility] Immature Granulocytes Absolute 0.03 0.00 - 0.30 k/uL 05/18/2025 12:41 PM T [facility] Blood BLOOD SPECIMEN / Unknown 05/18/2025 12:41 PM EDT 05/18/2025 12:42 PM EDT us Emma Nava DO HEMATOLOGY ORDERABLES Final Res ult [facility] [address] [phone] * (ABNORMAL) Comprehensive Metabolic Panel (05/18/2025 12:41 PM EDT) Sodium 138 136 - 145 mmol/L 05/18/2025 12:41 PM [facility] Potassium 3.6(L) 3.7 - 5.3 mmol/L 05/18/2025 12:41 PM [facility] Chloride 106 98 - 107 mmol/L 05/18/2025 12:41 PM [facility] CO2 21 20 - 31 mmol/L 05/18/2025 12:41 PM [facility] Anion Gap 11 9 - 16 mmol/L 05/18/2025 12:41 PM [facility] Glucose 79 74 - 99 mg/dL 05/18/2025 12:41 PM [facility] BUN 5(L) 6 - 20 mg/dL 05/18/2025 12:41 PM [facility] Creatinine 0.6 0.50 - 0.90 mg/dL 05/18/2025 12:41 PM T [facility] Est, Glom Filt Rate >90 >60 mL/min/1.7 3m2 05/18/2025 12:41 PM T [facility] Comment: These results are not [...] 8(L) 9 - 20 05/18/2025 12:41 PM T [facility] Calcium 9.0 8.6 - 10.4 mg/dL 05/18/2025 12:41 PM [facility] Total Protein 6.0(L) 6.6 - 8.7 g/dL 05/18/2025 12:41 PM [facility] Albumin 3.5 3.5 - 5.2 g/dL 05/18/2025 12:41 PM T [facility] Albumin/Globulin Ratio 1.4 1.0 - 2.5 05/18/2025 12:41 PM [facility] Total Bilirubin 0.2 0.00 - 1.20 mg/dL 05/18/2025 12:41 PM [facility] Alkaline Phosphatase 76 35 - 104 U/L 05/18/2025 12:41 PM [facility] ALT 23 10 - 35 U/L 05/18/2025 12:41 PM T [facility] AST 24 10 - 35 U/L 05/18/2025 12:41 PM [facility] Blood BLOOD SPECIMEN / Unknown 05/18/2025 12:41 PM EDT 05/18/2025 12:42 PM EDT us Emma Nava DO CHEMISTRY ORDERABLES Final Resu lt [facility] [address] [place] [address] * Protein / Creatinine Ratio, Urine (05/18/2025 12:40 PM EDT) Only the most recent of2 resultswithin the time period is included. Total Protein, Urine 14 mg/dL 05/18/2025 12:40 PM EDT [facility] Comment:No normal range esta blished. Creatinine, Ur 211.0 28.0 - 217.0 mg/dL 05/18/2025 12:40 PM EDT [facility] Urine Total Protein Creatinine Ratio 0.07 0.00 - 0.20 05/18/2025 12:40 PM EDT [facility] Urine (Urine) 05/18/2025 12: 40 PM EDT 05/18/2025 12:41 PM EDT Emma Nava DO URINE ORDERABLES Final Result Performing Organization Address [facility]/ZIP Co de Phone Number [facility] [address] [place] [address] * Glucose Challenge Gestational (03/22/2025 10:33 AM EDT) GLU ADMN Glucola 03/22/2025 10:33 AM EDT [facility] Glucose tolerance screen 50g 119 70 - 135 mg/dL 03/22/2025 10:33 AM EDT [facility] 03/22/2025 10:3 3 AM EDT 03/22/2025 10:34 AM EDT Jung Serrato MD HEMATOLOGY ORDERABLES Fin al Result Performing Organization Address City/[facility]/ZIP Co de Phone Number [facility] [address] [place] [address] * (ABNORMAL) CBC (03/22/2025 10:33 AM EDT) WBC 9.8 3.5 - 11.3 k/uL 03/22/2025 10:33 AM EDT [facility] RBC 4.16 3.95 - 5.11 m/uL 03/22/2025 10:33 AM [facility] Hemoglobin 11.7(L) 11.9 - 15.1 g/dL 03/22/2025 10:33 AM [facility] Hematocrit 35.1(L) 36.3 - 47.1 % 03/22/2025 10:33 AM [facility] MCV 84.4 82.6 - 102.9 fL 03/22/2025 10:33 AM [facility] MCH 28.1 25.2 - 33.5 pg 03/22/2025 10:33 AM [facility] MCHC 33.3 28.4 - 34.8 g/dL 03/22/2025 10:33 AM [facility] RDW 13.1 11.8 - 14.4 % 03/22/2025 10:33 AM [facility] Platelets 194 138 - 453 k/uL 03/22/2025 10:33 AM [facility] MPV 11.7 8.1 - 13.5 fL 03/22/2025 10:33 AM [facility] NRBC Automated 0.0 0.0 per 100 WBC 03/22/2025 10:33 AM [facility] 03/22/2025 10:3 3 AM EDT 03/22/2025 10:34 AM EDT us Jung Serrato MD HEMATOLOGY ORDERABLES Fin al Result [facility] [address] [place] [id number] [phone] * (ABNORMAL) Comprehensive Metabolic Panel w/ Reflex to MG (02/24/2025 11:15 PM EDT) Pathologist [facility] Sodium 137 136 - 145 mmol/L 02/24/2025 11:15 PM [facility] Potassium 3.6(L) 3.7 - 5.3 mmol/L 02/24/2025 11:15 PM [facility] Chloride 101 98 - 107 mmol/L 02/24/2025 11:15 PM [facility] CO2 25 20 - 31 mmol/L 02/24/2025 11:15 PM [facility] Anion Gap 11 9 - 16 mmol/L 02/24/2025 11:15 PM [facility] Glucose 85 74 - 99 mg/dL 02/24/2025 11:15 PM [facility] BUN 8 6 - 20 mg/dL 02/24/2025 11:15 PM [facility] Creatinine 0.6 0.50 - 0.90 mg/dL 02/24/2025 11:15 PM [facility] Est, Glom Filt Rate >90 >60 mL/min/1.7 3m2 02/24/2025 11:15 PM [facility] Comment: These results are not intended [...] 13 9 - 20 02/24/2025 11:15 PM [facility] Calcium 9.1 8.6 - 10.4 mg/dL 02/24/2025 11:15 PM [facility] Total Protein 6.5(L) 6.6 - 8.7 g/dL 02/24/2025 11:15 PM [facility] Albumin 3.8 3.5 - 5.2 g/dL 02/24/2025 11:15 PM [facility] Albumin/Globulin Ratio 1.5 1.0 - 2.5 02/24/2025 11:15 PM EDT [facility] Total Bilirubin <0.2 0.00 - 1.20 mg/dL 02/24/2025 11:15 PM EDT [facility] Alkaline Phosphatase 65 35 - 104 U/L 02/24/2025 11:15 PM EDT [facility] ALT 123(H) 10 - 35 U/L 02/24/2025 11:15 PM EDT [facility] AST 47(H) 10 - 35 U/L 02/24/2025 11:15 PM EDT [facility] Blood BLOOD SPECIMEN / Unknown 02/24/2025 11:15 PM EDT 02/24/2025 11:21 PM EDT us Fior J Villatoro DO CHEMISTRY ORDERABLES Final Re sult Performing Organization Address [facility]/ZIP Co de Phone Number [facility] [address] [place] [address] * Magnesium (02/24/2025 11:15 PM EDT) Magnesium 2.0 1.6 - 2.6 mg/dL 02/24/2025 11:15 PM EDT [facility] Blood BLOOD SPECIMEN / Unknown 02/24/2025 11:15 PM EDT 02/24/2025 11:21 PM EDT us Fior J Villatoro DO CHEMISTRY ORDERABLES Final Re sult Performing Organization Address [facility]/ZIP Co de Phone Number [facility] [address] [place] [address] * (ABNORMAL) Urinalysis with Reflex to Culture (02/24/2025 11:10 PM EDT) Color, UA Newton(A) Yellow 02/24/2025 11:10 PM EDT [facility] Turbidity UA SLIGHTLY CLOUDY(A) Clear 02/24/2025 11:10 PM EDT [facility] Glucose, Ur NEGATIVE NEGATIVE mg/dL 02/24/2025 11:10 PM EDT [facility] Bilirubin, Urine NEGATIVE NEGATIVE 02/24/2025 11:10 PM EDT [facility] Ketones, Urine NEGATIVE NEGATIVE mg/dL 02/24/2025 11:10 PM EDT [facility] Specific [place], UA 1.015 1.010 - 1.020 02/24/2025 11:10 PM EDT [facility] Urine Hgb NEGATIVE NEGATIVE 02/24/2025 11:10 PM EDT [facility] pH, Urine 7.5 5.0 - 9.0 02/24/2025 11:10 PM EDT [facility] Protein, UA NEGATIVE NEGATIVE mg/dL 02/24/2025 11:10 PM EDT [facility] Urobilinogen, Urine Normal 0.0 - 1.0 EU/dL 02/24/2025 11:10 PM EDT [facility] Nitrite, Urine NEGATIVE NEGATIVE 02/24/2025 11:10 PM EDT [facility] Leukocyte Esterase, Urine NEGATIVE NEGATIVE 02/24/2025 11:10 PM EDT [facility] Urine 02/24/2025 11:1 0 PM EDT 02/24/2025 11:21 PM EDT Fior Villatoro DO URINE ORDERABLES Final Result [facility] [address] [place] [id number] [phone] * (ABNORMAL) Microscopic Urinalysis (02/24/2025 11:10 PM EDT) WBC, UA 0 TO 2 0 - 5 /HPF 02/24/2025 11:10 PM EDT [facility] RBC, UA 0 TO 2 0 - 2 /HPF 02/24/2025 11:10 PM EDT [facility] Epithelial Cells, UA 2 TO 5 0 - 25 /HPF 02/24/2025 11:10 PM EDT [facility] Bacteria, UA TRACE(A) None 02/24/2025 11:10 PM EDT [facility] Amorphous, UA 2+(A) None 02/24/2025 11:10 PM EDT [facility] 02/24/2025 11:1 0 PM EDT 02/24/2025 11:21 PM EDT Fior Villatoro DO URINE ORDERABLES Final Result Performing Organization Address [facility] Co de Phone Number [facility] [address] [place] [address], [facility] [phone] * Hepatitis C Antibody (2023 3:30 PM EST) Hepatitis C Ab NONREACTIVE NONREACTIVE 11/10/19 3:30 PM EST [employer] Comment: The hepatitis C procedure used in [...] EST 2023 6:42 PM EST Leny Kulkarni APRN - CNM IMMUNOLOGY ORDERABLES F inal Result Performing Organization Address City/[facility]/ZIP Co de Phone Number [facility] [address] [place] [address], [facility] [phone] [employer] [address] [place] [address], [facility] [phone] * HIV Screen (2023 3:30 PM EST) HIV Ag/Ab NONREACTIVE NONREACTIVE 2023 3:30 PM EST [employer] Comment: No laboratory evidence of HIV infection. If acute HIV infection is suspected, consider testing for HIV-1 RNA. BLOOD SPECIMEN / Unknown 2023 3:30 PM EST 2023 6:42 PM EST Leny Kulkarni RN BARIATRIC - CNM IMMUNOLOGY ORDERABLES F inal Result [facility] [address] [place] [address], [facility] [phone] Fwd: [employer] [address] [place] [address], [facility] [phone] from Last 3 Months or Most Recently Relevant to Health Maintenance Insurance [employer] [place] Care Teams Vacuum Caster Relationship Specialty Start Date End Date Oliver Lozano MD PCP - General 01/23/16
--- OUTSIDE RECORDS SUMMARY | 2025-05-24 14:18 | XMS_ITS | Encounter Summary ---
Author Organization [facility] Address [address] [place] [address] Care Team Providers Care Pulp Drier Name Role Phone Oliver Lozano MD Primary Care Provider [phone] Unallocated, Yanique Louis MD Primary Care Provi zoltan Encounter Details Date Type Department Care Team (Late st Contact Info) Description 12/17/2024 Abstract [facility] [address] [id number] Jung Serrato DO [address] [place], [place] [id number] Social History Tobacco Use Types Packs/Day Years [...] on filedocumented in this encounter Care Teams Pulp Drier Relationship Specialty Start Date End Date Oliver Lozano MD [address] [place] [address] PCP - General Internal Medicine 02/18/23 03/16/25 Unallocated, Noms Provider, [address] [place] [address] PCP - General Family Medicine 03/17/25 documented as of this encounter
--- OUTSIDE RECORDS SUMMARY | 2025-05-24 14:18 | XMS_ITS | Encounter Summary ---
Author Organization [facility] Address [address] [place] [address] Care Team Providers Care Echo Vascular Tech Name Role Phone Unallocated, Noms Provider Primary Care Provi zoltan Encounter Details Date Type Department Care Team (Late st Contact Info) Description 05/18/2025 Clinisync Result Encounter [facility] External Department [...] Procedure Name Priority Date/Time Associated Diagnosis Comments MHPT COMP METABOLIC PROF Routine 05/18/2025 12:41 PM EDT MHPT CBC WITH DIFF Routine 05/18/2025 12 :41 PM EDT MHPT PROTEIN,TOT,RAND UR Routine 05/18/2025 12:40 PM EDT documented in this encounter Results * (ABNORMAL) MHPT COMP METABOLIC PROF (05/18/2025 [...] MARCUS BURNHAM us Generic External Data Provider GREGG garcia Result CLINISYFERNANDO PT * (ABNORMAL) MHPT CBC WITH DIFF (05/18/2025 [...] CLINISYNC F inal Result CLINHARLEYNC MHPT * MHPT PROTEIN,TOT,RAND UR (05/18/2025 [...] MARCUS BURNHAM us Generic External Data Provider CLINISYFERNANDO F inal Result CLINISYNC PT documented in this encounter Visit Diagnoses Not on filedocumented in this encounter Care Teams Echo Vascular Tech Relationship Specialty Start Date End Date Unallocated, Noms Provider, [address] [place] [address] PCP - General Family Medicine 03/17/25 documented as of this encounter
--- OUTSIDE RECORDS SUMMARY | 2025-05-24 14:18 | XMS_ITS | Encounter Summary ---
Author Organization [facility] Address [address] [place] [address] Care Team Providers Care Chemical Engineering Teacher Name Role Phone Unallocated, Noms Provider Primary Care Provi zoltan Encounter Details Date Type Department Care Team (Late st Contact Info) Description 05/10/2025 Clinisync Result Encounter [facility] External Department [...] Diagnosis Comments US OB BPP W NON-STRESS 05/10/2025 3:42 PM EDT documented in this encounter Results * US OB BPP W NON-STRESS (05/10/2025 3:42 PM EDT) Anatomical Region Laterality Modality Other 05/10/2025 3:42 PM EDT Narrative 05/10/2025 3:45 PM EDT The [address] [address] Ultrasound Report Signed Patient: MARGARET GIFFORD MR#: [id number] : 1995 Acct:[id number] Age/Sex: 29 / F ADM Date: 05/10/25 Loc: [facility] 250-[address]: Leyla Rapp Ordering Physician: Leyla Rapp Date of Service: 05/10/25 Procedure(s): US OB BPP w non-stress Accession Number(s): [id number] cc: Leyla Rapp; JOI LEWIS [place] [id number] Patient Name: MARGARET GIFFORD MRN: [id number] date: 1995 Sex: F Assigned Patient Location: [facility] Current Patient Location: [facility] Accession/Order Number: [id number] Exam Date: 05/10/2025 15:37 Report Date: 05/10/2025 15:42 At the request of: LEYLA RAPP Procedure: US OB BPP w non-stress Biophysical profile. Reason for exam: Von Willebrand disease COMPARISON: 05/03/2025 TECHNIQUE: Transabdominal imaging of the gravid uterus was obtained. FINDINGS: The clinical massage therapist reports a BPP of 8 out of 8. ISABELL is normal at 13.7 cm. heart rate 142 bpm. US/US OB BPP w non-stress IMPRESSION: BPP 8 out of 8. Impression dictated by: Parrish Wise Jr., D.O. 05/10/2025 3:42 PM Dictation Location: [place] [address] Electronically authenticated by: [id number] Y Date: 05/10/2025 15:42 Dictated By: Parrish Wise M.D. Signed By: 05/10/25 1545 DD/ 1542 TD/TT: Batter Out: Procedure Note Radiology, Radiologist, MD - 05/10/2025 [place] [address] Ultrasound Report Signed Patient: MARGARET GIFFORD MMR#: [id number] : 1995Acct:[id number] Age/Sex: 29 / FADM Date: 05/10/25 Loc: [facility] [address] Attending Dr: Leyla Rapp Ordering Physician: Leyla Rapp Date of Service: 05/10/25 Procedure(s): US OB BPP w non-stress Accession Number(s): [id number] cc: Leyla Rapp; JOI LEWIS [place] [id number] Patient Name: MARGARET GIFFORD MRN: [facility]:[id number] date: 1995 Sex: F Assigned Patient Location: [facility] Current Patient Location: [facility] Accession/Order Number: [id number] Exam Date: 05/10/2025 15:37 Report Date: 05/10/2025 15:42 At the request of: LEYLA RPAP Procedure: US OB BPP w non-stress Biophysical profile. Reason for exam: Von Willebrand disease COMPARISON: 05/03/2025 TECHNIQUE: Transabdominal imaging of the gravid uterus was obtained. FINDINGS: The clinical massage therapist reports a BPP of 8 out of 8. ISABELL is normal at13.7 cm. heart rate 142 bpm. US/US OB BPP w non-stress IMPRESSION: BPP 8 out of 8. Impression dictated by: Parrish Wise Jr., D.O. 05/10/2025 3:42 PM Dictation Location: [place] [address] Electronically authenticated by: [id number] Y Date: 5:42 Dictated By: Parrish Wise M.D. Signed By:05/10/25 1545 DD/ 1542 TD/TT: Batter Out: us Generic External Data Provider [facility] Final Result documented in this encounter Visit Diagnoses Not on filedocumented in this encounter Care Teams Chemical Engineering Teacher Relationship Specialty Start Date End Date Unallocated, Noms Provider, MD Ed [address] [place], [place] [id number] PCP - General Family Medicine 03/17/25 documented as of this encounter
--- OUTSIDE RECORDS SUMMARY | 2025-05-24 14:18 | XMS_ITS | Encounter Summary ---
Author Organization [facility] Address [address] [place] [address] Care Team Providers Care Speech Correction Assistant Name Role Phone Oliver Lozano MD Primary Care Provider [phone] Unallocated, Noms Provider Primary Care Provi ozltan Encounter Details Date Type Department Care Team [...] by: Nickolas Swenson MD 02/09/24 Final result us Generic External Data Provider [facility] Final Result documented in this encounter Visit Diagnoses Not on filedocumented in this encounter Care Teams Speech Correction Assistant Relationship Specialty Start Date End Date Oliver Lozano MD [address] [place] [address] PCP - General Internal Medicine 02/18/23 03/16/25 Unallocated, Noms MD [address] [place] [address] PCP - General Family Medicine 03/17/25 documented as of this encounter
--- OUTSIDE RECORDS SUMMARY | 2025-05-24 14:18 | XMS_ITS | Clinical Summary ---
Author Organization [facility] Address [address] [place] [address] Care Team Providers Care Carpenter Assembler Name Role Phone Unavailable Primary Care Provider [...] Procedure Name Priority Date/Time Associated Diagnosis Comments CYTOLOGY-C D STRIPPER, LIQUID BASED Routine 08/18/2018 2:01 PM EST Gynecologic exam normal Cervical cancer screening HIV 1 AND 2 ANTIBODIES Routine 04/25/2017 2:05 PM EDT Screening for STDs (sexually transmitted diseases) CHLAM & GONORRHEA: AMP CERVIX Routine 04/25/2017 2:05 PM EDT Screening for STDs (sexually transmitted diseases) from Last 3 Months or Most Recently Relevant to Health Maintenance Results * CYTOLOGY-C D STRIPPER, LIQUID BASED (08/18/2018 2:01 PM EST) Historical Case Report Cytology Report Patient Name: MARGARET GIFFORD [facility]. Rec. #: [id number] Submitting Physician: MONET AHN Clinical History: Date [...] To The Results Of This Pap Test. [id number]:[id number] Electronically Signed Out By SOY Omalley (ASCP) [...] Result - Final [facility] [address] [place] [id number] * CHLAM & GONORRHEA: AMP CERVIX (04/25/2017 2:05 PM EDT) MICRO [facility] NUMBER [id number] [facility] Chlamydia trachomatis Culture Negative Negative LAB, [facility] Neisseria Gonorrhoeae, CX Negative Negative LAB, [facility] METHOD THIS TEST WAS PERFORMED USING A REAL TIME PCR ASSAY. LAB, [facility] CERVICAL SWAB / Unknown 04/25/2017 2:05 PM EDT 04/25/2017 5:44 PM EDT Ashlyn Delgado PRINTING SIGN MACHINE OPERATOR-[employer]ARD[employer] FLOOR INSTALLATION HELPER MICROBIOLOGY - GENER AL ORDERABLES Final Result Performing Organization Address [facility]/ZIP Co de Phone Number [address] [address] * HIV 1 AND 2 ANTIBODIES (04/25/2017 2:05 PM EDT) HIV-1/HIV-2 AB/p24 Antigen NONREACTIVE NONREACTIVE LAB, [facility] 04/25/2017 2:05 PM EDT 04/25/2017 5:03 PM EDT Ashlyn Delgado PRINTING SIGN MACHINE OPERATOR-[employer]ARD[employer]OD FLOOR INSTALLATION HELPER IMMUNOLOGY ORDERABLE S Final Result Performing Organization Address City/[facility]/ZIP Co de Phone Number LAB, [facility] [address] [address] from Last 3 Months or Most Recently Relevant to Health Maintenance Insurance [facility]
--- OUTSIDE RECORDS SUMMARY | 2025-05-24 14:18 | XMS_ITS | Encounter Summary ---
Author Organization [facility] Address [address] [place] [address] Care Team Providers Care Media Arts Professor Name Role Phone Oliver Lozano MD Primary Care Provider [phone] Unallocated, Yanique Louis MD Primary Care Provi zoltan Encounter Details Date Type Department Care Team (Late st Contact Info) Description 12/23/2024 Abstract YANIQUE [facility] [address] [phone] Jung Serrato DO [address] [facility] [address] [place]ons, [place] [id number] Social History Tobacco Use Types Packs/Day Years [...] on filedocumented in this encounter Care Teams Media Arts Professor Relationship Specialty Start Date End Date Oliver Lozano MD [address] [place] [address] PCP - General Internal Medicine 02/18/23 03/16/25 Unallocated, Noms Provider, [address] [address] PCP - General Family Medicine 03/17/25 documented as of this encounter
--- OUTSIDE RECORDS SUMMARY | 2025-05-24 14:18 | XMS_ITS | Encounter Summary ---
Author Organization [facility] Address [address] [place] [address] Care Team Providers Care Acid Cleaner Name Role Phone Oliver Lozano MD Primary Care Provider [phone] Unallocated, Noms Provider Primary Care Provi zoltan [...] 05/29/24 Final result Procedure Note Radiology, Radiologist, - 05/29/2024 EXAMINATION: PELVIC ULTRASOUND 05/28/2024 9:17 [...] by: Adonay Frank MD 05/29/24 Final result [place] External Data Provider [facility] Final Result documented in this encounter Visit Diagnoses Not on filedocumented in this encounter Care Teams Acid Cleaner Relationship Specialty Start Date End Date Oliver Lozano MD [address] [place] [address] PCP - General Internal Medicine 02/18/23 03/16/25 Unallocated, Noms Provider, [address] [place], [place] [phone] PCP - General Family Medicine 03/17/25 documented as of this encounter
--- OUTSIDE RECORDS SUMMARY | 2025-05-24 14:18 | XMS_ITS | Encounter Summary ---
Author Organization [facility] Address [address] [facility] [place] [place] [address] Care Team Providers Care Water Team Leader Name Role Phone Oliver Lozano MD Primary Care Provider [phone] Unallocated, Noms Provider Primary Care Provi zoltan Encounter Details Date Type Department Care Team (Late st Contact Info) Description 05/31/2024 Abstract YANIQUE Parsons [facility]BG[facility] [address] [facility] [place] [phone] Jung Serrato DO [address] [facility] [address] [place], [place] [id number] Social History Tobacco Use Types Packs/Day Years [...] on filedocumented in this encounter Care Teams Water Team Leader Relationship Specialty Start Date End Date Oliver Lozano MD [address] [facility] [place] [address] PCP - General Internal Medicine 02/18/23 03/16/25 Unallocated, Noms ProviderMD [address] [place] [address] PCP - General Family Medicine 03/17/25 documented as of this encounter
--- OUTSIDE RECORDS SUMMARY | 2025-05-24 14:18 | XMS_ITS | Encounter Summary ---
Author Organization [facility] Address [address] [place] [address] Care Team Providers Care Gum Machine Operator Name Role Phone Oliver Lozano MD Primary Care Provider [phone] Unallocated, Noms Provider Primary Care Provi zoltan [...] 08/20/23 Final result Procedure Note Radiology, Radiologist, - 08/20/2023 UTERUS: Homogenous appearing anteverted uterus, WNL ENDO: measures 5 mm RT. OVARY: WNL LT. OVARY: there is a hyperechoic area lateral AND superior to ovary,suggestive of edema, or collection of blood, no blood flow into area,minimal blood flow noted in ovary No free fluid Interpreted by: Gisela Machado DO Signed by: Gisela Machado DO 08/20/23 Final result Generic External Data Provider [facility] Final Result documented in this encounter Visit Diagnoses Not on filedocumented in this encounter Care Teams Gum Machine Operator Relationship Specialty Start Date End Date Oliver Lozano MD [address] [place] [address] PCP - General Internal Medicine 02/18/23 03/16/25 Unallocated, Noms Provider, [address] [address] PCP - General Family Medicine 03/17/25 documented as of this encounter
--- OUTSIDE RECORDS SUMMARY | 2025-05-24 14:18 | XMS_ITS | Encounter Summary ---
Author Organization [facility] Address [address] [facility] [place] [address] Care Team Providers Care Kid Club Attendant Name Role Phone Oliver Lozano MD Primary Care Provider [phone] Unallocated, Noms Provider Primary Care Provi zoltan Encounter Details Date Type Department Care Team (Late st Contact Info) Description 06/28/2024 Abstract YANIQUE Parsons OBGYN [address] [place] [phone] Jung Serrato DO [address] [facility] [place] [address] Social History Tobacco Use Types Packs/Day Years [...] on filedocumented in this encounter Care Teams Kid Club Attendant Relationship Specialty Start Date End Date Oliver Lozano MD [address] [facility] [place] [address] PCP - General Internal Medicine 02/18/23 03/16/25 Unallocated, Noms ProviderMD [address] [place] [address] PCP - General Family Medicine 03/17/25 documented as of this encounter
--- OUTSIDE RECORDS SUMMARY | 2025-05-24 14:18 | XMS_ITS | Clinical Summary ---
Author Organization [employer] Address [id number] [address] [place] [address] Care Team Providers Care Street Light Cleaner Name Role Phone Oliver Lozano MD Primary Care Provider [phone] Allergies Active Allergy Reactions Criticality Noted Date [...] 11:59 PM EDT Hospital Encounter [facility] [address] [place] [phone] Discharge Disposition: Home 03/30/2025 Travel from Last [...] normal biventricular systolic function. Normal PFO with bwlad-yx-hobt shunt and ductus arteriosus seen with lzffb-bu-ualb shunting. There is no evidence of aortic [...] [employer] [place] [employer] Care Teams Street Light Cleaner Relationship Specialty Start Date End Date Oliver Lozano MD [address] [place] [address], [address] [place] [address] PCP - General 04/29/18
--- OUTSIDE RECORDS SUMMARY | 2025-05-24 14:18 | XMS_ITS | Encounter Summary ---
Author Organization [facility] Address [address] [place] [address] Care Team Providers Care Service Rig Operator Name Role Phone Unallocated, Yanique Provider Primary Care Provi zoltan Encounter Details Date Type Department Care Team (Late st Contact Info) Description 05/19/2025 Abstract YANIQUE DRAPER [address] [place] [address] [place] [phone] Apple Ambrocio MA Social History Tobacco Use [...] on filedocumented in this encounter Care Teams Service Rig Operator Relationship Specialty Start Date End Date Unallocated, [place] [address] PCP - General Family Medicine 03/17/25 documented as of this encounter
[2025-05-24 14:41] VITALS: BP 126/91; PULSE 98
[2025-05-24 15:07] VITALS: BP 118/81; PULSE 81
== END 2025-05-24 15:07 | disposition home or self-care (01) ==
LOC: US 14:13 → FBC 14:16
PROVIDERS: PCP Internal Medicine; Visit Provider Physician Assistant
DX: O26.893 Other specified pregnancy related conditions, third trimester (principal); D68.00 Von Willebrand disease, unspecified; I35.0 Nonrheumatic aortic (valve) stenosis
CPT/HCPCS: 76818

== ENCOUNTER 2025-06-10 18:03 | Outpatient (OUT) | payer MEDICAID, SELFPAY ==
--- OUTSIDE RECORDS SUMMARY | 2025-06-10 18:08 | XMS_ITS | CCD ---
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 Name Role Phone Andrea Luciano Primary Care Provi zoltan ANDREA LUCIANO Attending Un available BOBO LUCIANOE KARMA Primary Care Un available Joi Lewis Primary Care Provider UnavailGARTH LiERIE KARMA Primary Care Un available VERONICA KUO Attending Unavailable BOBO LUCIANOE KARMA Primary Care Un available SU WILLIAMSON Attending Unavailable ASHEREDERILER, ANDREA KARMA Primary Care Un available ARIELLE VENTURA Attending Unavailable Joi Lewis Primary Care Provider Debbie LOYOLA, Joi Narayan Primary Care Provider [phone] Joi Lewis MD Primary Care Provider Joi Lewis MD Primary Care Provider [phone] Unallocated , N[place] Provider Primary Care Provi zoltan BLAYNE SMALLS Referring Unavailable DEBBIE, JOI Helene Primary Care Unavailable SMALLSBLAYNE Referring Unavailable HILL, JOI Helene Primary Care Unavailable SMALLSBLAYNE AHN Referring Unavailable HILL, JOI Narayan Primary Care Unavailable BEKAH, BLAYNE Attending Unavailable BLAYNE SMALLS Attending Unavailable JUNG SERRATO Referring Unavailable DEBBIE, JOI Helene Primary Care Unavailable JUNG SERRATO Referring Unavailable HILL, JOI Helene Primary Care Unavailable JUNG SERRATO Referring Unavailable HILL, JOI L Primary Care Unavailable DEBBIE, JOI L Primary Care Unavailable VINI HART Referring Unavailab JUNG Moore Referring Unavailable HILL, JOI Helene Primary Care Unavailable DEBBIE, JOI L Primary Care Unavailable FIOR MENDEZ Attending Unavailable ALEXYS FAROOQ Referring Unavailable JOI LEWIS Primary Care Unavailable JUNG SERRATO Referring Unavailable JOI LEWIS Primary Care Unavailable JUNG SERRATO Attending Unavailable BRIAN SHORE Attending Unavailable JUNG SERRATO Attending Unavailable LEYLA MATT Attending Unavailable JUNG SERRATO Attending Unavailable LEYLA MATT Attending Unavailable JUNG SERRATO Attending Unavailable KAYLEE BROWN Referring Unavailable JOI LEWIS Primary Care Unavailable Allergies Allergy Classification Reported Allergen(s) Allergy Type Date of Onset Reaction(s) Facility NSAIDs (2 sources) Ibuprofen; Translations: [IBUPROFEN] Drug Allergy 5 [facility] (20 sources) Ibuprofen; Translations: [IBUPROFEN] Drug Allergy 5 [facility] (20 sources) Non-steroidal anti-inflammator y agent Drug Allergy 4 [facility] (5 sources) Non-steroidal anti-inflammator y agent Propensity to adverse reactions to drug 4 [facility] Medications Current Medications Medication Drug Class(es) Dates Sig (Normalized) Sig (Original) acetaminophen 500 mg oral tablet (8 sources) take 1 tablet by mouth every six hours as needed acetaminophen (TYLENOL) 500 MG tablet Take 500 mg by mouth every 6 (six) hours as needed for pain . 0 Active acyclovir 400 mg oral tablet (9 sources) Herpesvirus Nucleoside Analog DNA Polymerase Inhibitor, [...] / zinc oxide 20 mg oral tablet (11 sources) Vitamin B12, Vitamin D, Vitamin C Start: 04-26-2025 End: 04-26-2026 take 1 tablet by mouth once daily Vit-DSS-Fe Fum-FA ( 19) tablet Indications: Second trimester ([facility]) Take 1 tablet by mouth Daily 30 [...] . 20 capsule 0 07/06/2019 07/13/2019 Active Blood Pressure KIT (2 sources) Start: 05-17-2025 Blood Pressure KIT 1 Units by Does not apply route daily 1 kit 05/17/2025 Active cetirizine hydrochloride 10 mg oral tablet [...] 20 capsule 0 12/01/2019 12/11/2019 Active levonorgestrel 0.601208 mg/hr intrauterine system (10 sources) Progestin, Progestin-containi ng Intrauterine Device levonorgestrel (MIRENA) 20 mcg/24 hr (5 years) IUD 1 each by intrauterine route once. Active magnesium oxide 400 mg oral tablet (18 sources) Start: 02-28-2025 End: 02-28-2026 take 1 [...] Discontinued ondansetron 4 mg disintegrating oral tablet (7 sources) Serotonin-3 Receptor Antagonist ondansetron (ZOFRAN-ODT) 4 [...] Active oxymetazoline hydrochloride 0.5 mg/ml nasal spray (9 sources) Start: oxymetazoline (12 HOUR NASAL SPRAY) 0.05 % nasal spray Use daily as directed for 3 days 1 Bottle 08/11/2020 Active Vit-Fe Fumarate-FA ( 19 PO) (11 sources) take 1 tablet by mouth once daily Vit-Fe Fumarate-FA ( 19 PO) Take 1 tablet by mouth Daily Active VIT-FE FUMARATE-FA PO (5 sources) take 1 tablet by mouth once daily VIT-FE FUMARATE-FA PO Take 1 tablet by mouth daily Active silver sulfADIAZINE 10 mg/ml topical cream (7 sources) Sulfonamide Antibacterial Start: 019 End: silver sulfADIAZINE (SILVADENE) 1 % cream Indications: Sunburn Apply thin film to left posterior shoulder region and L side of neck daily x 7 days . 50 g 1 06/21/2019 06/20/2020 Active valACYclovir 500 mg oral tablet (10 sources) Herpesvirus Nucleoside Analog DNA Polymerase Inhibitor, Herpes Simplex Virus Nucleoside Analog DNA Polymerase Inhibitor, Herpes Zoster Virus Nucleoside Analog DNA Polymerase Inhibitor Start: 025 End: 026 take 1 tablet by mouth once daily valACYclovir (Valtrex) 500 MG tablet Indications: Third trimester ([facility]) Take 1 tablet (500 mg) by mouth Daily 30 tablet 2 05/31/2025 06/30/2025 Active Start: 12-10-2024 End: 12-20-2024 take 1 [...] 1.5 mg/ml oral solution (6 sources) Uncompetitive X-ulbzfu-Y-aspartate Receptor Antagonist, Sigma-1 Agonist Start: 10-18-2019 End: 09-30-2020 take 10 mL by mouth four times daily as needed for cough pyrilamine-dextromethorphan (Spencer DM) 7.5-7.5 mg/5 mL Liqd Indications: Influenza [...] disease] Onset: 10-02-2018 10-02-2018 Chronic Essential hypertension (10 sources) Hypertensive disorder; Translations: [Essential (primary) hypertension] Onset: 05-26-2013 05-26-2013 Chronic Headache; including migraine (9 sources) Migraine; Translations: [Migraine] Onset: 10-02-2018 10-26-2018 Chronic Headache; including migraine (1 source) Headache; including migraine; Translations: [Headache, unspecified] Onset: 02-24-2025 Heart valve disorders (20 sources) Aortic valve stenosis; Translations: [Aortic valve regurgitation] Onset: 07-08-2012 07-08-2012 Chronic Hypertension with complications and secondary hypertension (3 sources) Secondary hypertension; Translations: [Secondary hypertension, unspecified] Onset: 03-19-2021 03-19-2021 Chronic Immunizations and screening for infectious disease (2 sources) Exposure to sexually transmissible disorder; Translations: [Contact with and (suspected) exposure to infections with a predominantly sexual mode of transmission] 02-09-2025 Episodic Influenza (1 source) Influenza due to Influenza virus, type B; Translations: [Influenza B] Episodic Menstrual disorders (11 sources) Menorrhagia; Translations: [Excessive and frequent menstruation with regular cycle] 07-06-2012 Chronic Other complications of (1 source) Headache; Translations: [Other specified related conditions, second trimester] 02-25-2025 Episodic Other complications of (1 source) Diseases of the circulatory system complicating , unspecified trimester; Translations: [Diseases of the circulatory system complicating , unspecified trimester] Onset: 03-09-2025 Episodic Other complications of (2 sources) High risk ; Translations: [Supervision of high risk , unspecified, third trimester] 05-18-2025 Episodic Other complications of (2 sources) Rubella non-immune; Translations: [Supervision of other high risk pregnancies, unspecified trimester] Onset: 05-17-2025 05-17-2025 Episodic Other complications of (2 sources) Supervision of high risk , unspecified, third trimester; Translations: [Supervision of high risk , unspecified, third trimester] Onset: 05-18-2025 Episodic Other complications of (1 source) Other specified related conditions, second trimester; Translations: [Other specified related conditions, second trimester] Onset: 02-24-2025 Episodic Other complications of (1 source) Poor growth affecting management; Translations: [Maternal care for other known or suspected poor growth, third trimester, not applicable or unspecified] Onset: 05-19-2025 06-03-2025 Episodic Other endocrine disorders (1 source) Polycystic [...] source) Posterior rhinorrhea; Translations: [Post-nasal drip] Episodic Residual codes; unclassified (2 sources) Gestation period, 19 weeks; Translations: [19 weeks gestation of ] 02-09-2025 Episodic Residual codes; unclassified (2 sources) Gestation period, 23 weeks; Translations: [23 weeks gestation of ] 03-14-2025 Episodic Residual codes; unclassified (2 sources) Gestation period, 28 weeks; Translations: [28 weeks gestation of ] 04-19-2025 Episodic Residual codes; unclassified (2 sources) Gestation period, 31 weeks; Translations: [31 weeks gestation of ] 05-10-2025 Episodic Residual codes; unclassified (2 sources) Gestation period, 35 weeks; Translations: [35 weeks gestation of ] Onset: 06-03-2025 06-04-2025 Episodic Residual codes; unclassified (1 source) 35 weeks gestation of ; Translations: [35 weeks gestation of ] Onset: 06-03-2025 Episodic Unclassified (1 source) Von Willebrand disease, unspecified; Translations: [Von Willebrand disease, unspecified] Onset: 12-27-2024 Viral infection (5 sources) Herpes labialis; Translations: [Herpesviral vesicular dermatitis] Onset: 05-17-2025 12-10-2024 Episodic Past or Other Problems Problem Classification Problem Date Documented Da te Episodic/Chronic Abdominal pain (1 source) Pain in female pelvis; Translations: [Pelvic and perineal pain] 06-02-2024 Episodic Nonspecific chest pain (1 source) [...] gestation of ] Onset: 01-06-2025 01-06-2025 Episodic Residual codes; unclassified (5 sources) Gestation period, 20 weeks; Translations: [20 weeks gestation of ] Onset: 02-17-2025 Resolved: 05-17-2025 02-17-2025 Episodic Residual codes; unclassified (3 sources) Gestation period, 33 weeks; Translations: [33 weeks gestation of ] Onset: 05-19-2025 Resolved: 05-20-2025 05-24-2025 Episodic Residual codes; unclassified (1 source) Gestation period, 34 weeks; Translations: [34 weeks gestation of ] Onset: 05-27-2025 Resolved: 06-03-2025 06-03-2025 Episodic Skin and subcutaneous tissue infections (1 source) Impetigo; Translations: [Impetigo] Episodic Unclassified (1 source) Von Willebrand disease, unspecified; Translations: [Von Willebrand disease, unspecified] Onset: 05-02-2025 Results Test Name Value Interpretation Reference Range Facility MHPT RULE OUT GRP.B STREPon 06-06-2025 MHPT RULE OUT GRP.B STREP Specimen Description .Vaginal/Rectal swab [facility] MHPT RULE OUT GRP.B STREP Special Requests Site: Genital [facility] MHPT RULE OUT GRP.B STREP Negative [facility] MHPT RULE OUT GRP.B STREP Report Status FINAL 06/06/2025 [facility] Original [facility]ing [facility]B Strepon 06-06 Rule Out Grp.B Strep Specimen Description .Vaginal/Rectal swab Special Requests Site: Genital Culture NEGATIVE FOR GROUP B STREPTOCOCCI Report Status FINAL 06/06/2025 Normal [facility] Comment on above: Performed By: #### R OGBS #### [place] [id number] It Telecom Technician: Eliecer Barreto MD US OB BPP W NON-STRESS on 05-24-[address] [address] Ultrasound Report Signed Patient: EDGAR ORTIZ MR#: [id number] : 1995 Acct:[id number] Age/Sex: 29 / F ADM Date: 05/24/25 Loc: [place] [address]: Leyla Matt Ordering Physician: Leyla Matt Date of Service: 05/24/25 Procedure(s): US OB BPP w non-stress Accession Number(s): [id number] cc: Leyla Matt; JOI LEWIS [place] [address] Patient Name: EDGAR ORTIZ MRN: [facility]:[id number] date: 1995 Sex: F Assigned Patient Location: [facility] Current Patient Location: [facility] Accession/Order Number: [id number] Exam Date: 05/24/2025 14:53 Report Date: 05/24/2025 14:53 At the request of: LEYLA MATT Procedure: US OB BPP w non-stress Biophysical profile. Reason for exam: Von Willebrand disease COMPARISON: 05/10/2025 TECHNIQUE: Transabdominal imaging of the gravid uterus was obtained. FINDINGS: The territory manager reports a BPP of 8 out of 8. ISABELL is normal at 17.4 cm. heart rate 148 bpm. US/US OB BPP w non-stress IMPRESSION: BPP 8 out of 8. Impression dictated by: Parrish Wise Jr., D.O. 05/24/2025 2:53 PM Dictation Location: [place] [address] Electronically authenticated by: [id number] Y Date: 05/24/2025 14:53 Dictated By: Parrish Wise M.D. Signed By: 05/24/25 1455 DD/ 52 TD/TT: Senior Architect/Design Manager: [facility] Radiology Radiologbee beltran MD - 05/24/[address] [place] [address] Ultrasound Report Signed Patient: EDGAR ORTIZ MR#: [id number] : 1995 Acct:[id number] Age/Sex: 29 / F ADM Date: 05/24/25 Loc: [facility] 250-[address]: Leyla Matt Ordering Physician: Leyla Matt Date of Service: 05/24/25 Procedure(s): US OB BPP w non-stress Accession Number(s): [id number] cc: Leyla Matt; JOI LEWIS [address] [address] Patient Name: EDGAR ORTIZ MRN: [id number] date: 1995 Sex: F Assigned Patient Location: [facility] Current Patient Location: [facility] Accession/Order Number: [id number] Exam Date: 05/24/2025 14:53 Report Date: 05/24/2025 14:53 At the request of: LEYLA MATT Procedure: US OB BPP w non-stress Biophysical profile. Reason for exam: Von Willebrand disease COMPARISON: 05/10/2025 TECHNIQUE: Transabdominal imaging of the gravid uterus was obtained. FINDINGS: The territory manager reports a BPP of 8 out of 8. ISABELL is normal at 17.4 cm. heart rate 148 bpm. US/US OB BPP w non-stress IMPRESSION: BPP 8 out of 8. Impression dictated by: Parrish Wise Jr., D.O. 05/24/2025 2:53 PM Dictation Location: [place] [address] Electronically authenticated by: [id number] Y Date: 05/24/2025 14:53 Dictated By: Parrish Wise M.D. Signed By: 05/24/25 1455 DD/ 52 TD/TT: Senior Architect/Design Manager: [facility] Rad[facility] Study observation (narrative) [facility] US OB BPP W NON-STRESS Ordered By: Radiologist Radiology on 05-24-2025 [facility] [employer] Work Phone: Urinalysis macro (dipstick) panel (U)on 05-24-2025 Bilirubin, UA Positive Negative - 4(70) +++ mg/dL [facility] Blood, UA Negative Negative - 50 Stanford/mcL [facility] Clarity, UA Clear [facility] Color, UA Starla [facility] e Glucose, UA Negative Negative - 1999(110) ++++ mg/dL [facility] Interpretation and review of laboratory results Abnormal [facility] Ketones, UA Negative Negative - 160(16) ++++ mg/dL [facility] Leukocytes, UA Negative Negative - 500+++ Yoni/mcL [facility] Nitrite, UA Negative Negative - Positive [facility] pH, UA 5.5 5 - 9 [facility] e Protein, UA Positive Negative - 1999(20) ++++ mg/dL [facility] Spec Grav, UA 1.03 1 - 1.03 [facility] Urobilinogen, UA 1.0 0.2 - 12 mg/dL [facility] CBC with Auto Differentialon 05-18-2025 Basophils (Bld) [#/Vol] 0.04 10*3/uL [facility] Basophils/100 WBC (Bld) 1 % 0 - 2 % [facility] Eosinophils (Bld) [#/Vol] 0.11 10*3/uL [facility] Eosinophils/100 WBC (Bld) 2 % 1 - 4 % [facility] Erythrocyte distribution width (RBC) [Ratio] 12.8 % 11.8 - 14.4 % [facility] Hematocrit (Bld) [Volume fraction] 31.5 % Low 36.3 - 47.1 % [facility] Hemoglobin (Bld) [Mass/Vol] 10.9 g/dL Low 11.9 - 15.1 g/dL [facility] Immature granulocytes (Bld) [#/Vol] 0.03 10*3/uL [facility] Immature granulocytes/100 WBC (Bld) 0 % 0 [facility] Interpretation and review of laboratory results Abnormal [facility] Lymphocytes/100 WBC (Bld) 33 % 24 - 43 % [facility] Lymphocytes/100 WBC (Bld) 2.4 % [facility] MCH (RBC) [Entitic mass] 28.1 pg 25.2 - 33.5 pg [facility] MCHC (RBC) [Mass/Vol] 34.6 g/dL 28.4 - 34.8 g/dL [facility] MCV (RBC) [Entitic vol] 81.2 fL Low 82.6 - 102.9 fL [facility] Monocytes/100 WBC (Bld) 6 % 3 - 12 % [facility] Monocytes/100 WBC (Bld) 0.45 % [facility] Neutrophils/100 WBC (Bld) 58 % 36 - 65 % [facility] Nucleated RBC/100 WBC (Bld) [Ratio] 0 % 0.0 per 100 WBC [facility] Platelet mean volume (Bld) [Entitic vol] 12.3 fL 8.1 - 13.5 fL [facility] Platelets (Bld) [#/Vol] 193 10*3/uL [facility] RBC (Bld) [#/Vol] 3.88 10*6/uL Low 3.95 - 5.1 1 m/uL [facility] Segmented neutrophils/100 WBC (Bld) 4.22 % [facility] WBC other (Bld) [#/Vol] 7.3 [facility] CBC with Diffon 05-18-2025 Abs. Basophil 0.04 k/uL Normal 0.00-0.20 [facility] Comment on above: Performed By: #### C WAYNE, CP #### [facility] [address] [place] [address] [place] [address] It Telecom Technician: Patricio Kelley MD Abs.Imm.Granulocyt e 0.03 k/uL Normal 0.00-0.30 [facility] Comment on above: Performed By: #### C WAYNE, CP #### [facility] [address] [place] [address] It Telecom Technician: Patricio Kelley MD Abs.Neutrophil (Seg) 4.22 k/uL Normal 1.50-8.10 [facility] Comment on above: Performed By: #### C WAYNE, CP #### [facility] [address] [place], [place] [id number] It Telecom Technician: Patricio Kelley MD Basophils/100 WBC (Bld) 1 % Normal 0-2 [facility] Comment on above: Performed By: #### C DP, CP #### [address] [place], [place] [id number] It Telecom Technician: Patricio Kelley MD Eosinophils (Bld) [#/Vol] 0.11 10*3/uL Normal 0.00-0.44 [facility] Comment on above: Performed By: #### C DP, CP #### [address] [place], [place] [address] It Telecom Technician: Patricio Kelley MD Eosinophils/100 WBC (Bld) 2 % Normal 1-4 [facility] Comment on above: Performed By: #### C DP, CP #### [address] [place], [place] [id number] It Telecom Technician: Patricio Kelley MD Erythrocyte distribution width (RBC) [Ratio] 12.8 % Normal 11.8-14.4 [facility] Comment on above: Performed By: #### C DP, CP #### [address] [place], [place] [id number] It Telecom Technician: Patricio Kelley MD Hematocrit (Bld) [Volume fraction] 31.5 % Low 36.3-47.1 [facility] Comment on above: Performed By: #### C DP, CP #### [address] [place], [place] [id number] It Telecom Technician: Patricio Kelley MD Hemoglobin (Bld) [Mass/Vol] 10.9 g/dL Low 11.9-15.1 [facility] Comment on above: Performed By: #### C DP, CP #### [address] [place], [facility]83 It Telecom Technician: Patricio Kelley MD Immature granulocytes/100 WBC (Bld) 0 % Normal 0 [facility] Comment on above: Performed By: #### C DP, CP #### [facility] [address] [place] [id number] It Telecom Technician: Patricio Kelley MD Lymphocytes (Bld) [#/Vol] 2.40 10*3/uL Normal 1.10-3.70 [facility] Comment on above: Performed By: #### C DP, CP #### [facility] [address] [place] [id number] It Telecom Technician: Patricio Kelley MD Lymphocytes/100 WBC (Bld) 33 % Normal 24-43 [facility] Comment on above: Performed By: #### C DP, CP #### [address] [place], [facility]83 It Telecom Technician: Patricio Kelley MD MCH (RBC) [Entitic mass] 28.1 pg Normal 25.2-33.5 [facility] Comment on above: Performed By: #### C DP, CP #### [address] [place] [id number] It Telecom Technician: Patricio Kelley MD MCHC (RBC) [Mass/Vol] 34.6 g/dL Normal 28.4-34.8 [facility] Comment on above: Performed By: #### C DP, CP #### [address] [place] [id number] It Telecom Technician: Patricio Kelley MD MCV (RBC) [Entitic vol] 81.2 fL Low 82.6-102.9 [facility] Comment on above: Performed By: #### C DP, CP #### [address] [place], [place] [id number] It Telecom Technician: Patricio Kelley MD Monocytes (Bld) [#/Vol] 0.45 10*3/uL Normal 0.10-1.20 [facility] Comment on above: Performed By: #### C DP, CP #### [facility] [address] [place] [address] It Telecom Technician: Patricio Kelley MD Monocytes/100 WBC (Bld) 6 % Normal 3-12 [facility] Comment on above: Performed By: #### C DP, CP #### [facility] [address] [place], [place] [id number] It Telecom Technician: Patricio Kelley MD Neutrophil (Seg) 58 % Normal 36-65 [facility] Comment on above: Performed By: #### C DP, CP #### [address] [place] [address] It Telecom Technician: Patricio Kelley MD NRBC Automated 0.0 per 100 WBC Normal 0.0 [facility] Comment on above: Performed By: #### C DP, CP #### [address] [place], [place] [id number] It Telecom Technician: Patricio Kelley MD Platelet mean volume (Bld) [Entitic vol] 12.3 fL Normal 8.1-13.5 [facility] Comment on above: Performed By: #### C DP, CP #### [address] [place], [place] [id number] It Telecom Technician: Patricio Kelley MD Platelets (Bld) [#/Vol] 193 10*3/uL Normal 138-453 [facility] Comment on above: Performed By: #### C DP, CP #### [address] [place] [address] It Telecom Technician: Patricio Kelley MD RBC (Bld) [#/Vol] 3.88 10*6/uL Low 3.95-5.11 [facility] Comment on above: Performed By: #### C DP, CP #### [facility] [address] [place], [place] [id number] It Telecom Technician: Patricio Kelley MD WBC (Bld) [#/Vol] 7.3 10*3/uL Normal 3.5-11.3 [facility] Comment on above: Performed By: #### C DP, CP #### [facility] [address] [place], [place] [id number] It Telecom Technician: Patricio Kelley MD Comp Metabolic Profon 2024 Albumin [Mass/Vol] 3.5 g/dL Normal 3.5-5.2 [facility] Comment on above: Performed By: #### C DP, CP #### [facility] [address] [place], [place] [id number] It Telecom Technician: Patricio Kelley MD Albumin/Glob Ratio 1.4 Normal 1.0-2.5 [facility] Comment on above: Performed By: #### C DP, CP #### [facility] [address] [place], [place] [id number] It Telecom Technician: Patricio Kelley MD Alkaline Phos 76 U/L Normal 35-104 [facility] Comment on above: Performed By: #### C DP, CP #### [facility] [address] [place], [place] [id number] It Telecom Technician: Patricio Kelley MD ALT [Catalytic activity/Vol] 23 U/L Normal 10-35 [facility] Comment on above: Performed By: #### C DP, CP #### [facility] [address] [place], [place] [id number] It Telecom Technician: Patricio Kelley MD Anion gap [Moles/Vol] 11 mmol/L Normal 9-16 [facility] Comment on above: Performed By: #### C DP, CP #### [facility] [address] [place], [place] [id number] It Telecom Technician: Patricio Kelley MD AST [Catalytic activity/Vol] 24 U/L Normal 10-35 [facility] Comment on above: Performed By: #### C DP, CP #### [facility] [address] [place] [address] It Telecom Technician: Patricio Kelley MD Bilirubin [Mass/Vol] 0.2 mg/dL Normal 0.00-1.20 [facility] Comment on above: Performed By: #### C DP, CP #### [facility] [address] [place] [address] It Telecom Technician: Patricio Kelley MD BUN/CRE Ratio 8 Low 9-20 [facility] Comment on above: Performed By: #### C DP, CP #### [facility] [address] [place], [place] [id number] It Telecom Technician: Patricio Kelley MD Calcium [Mass/Vol] 9.0 mg/dL Normal 8.6-10.4 [facility] Comment on above: Performed By: #### C DP, CP #### [facility] [address] [place] [address] [place] [place], [place] [id number] It Telecom Technician: Patricio Kelley MD Chloride [Moles/Vol] 106 mmol/L Normal 98-107 [facility] Comment on above: Performed By: #### C DP, CP #### [facility] [address] [place], [place] [id number] It Telecom Technician: Patricio Kelley MD CO2 [Moles/Vol] 21 mmol/L Normal 20-31 [facility] Comment on above: Performed By: #### C DP, CP #### [facility] [address] [place] [address] It Telecom Technician: Patricio Kelley MD Creatinine [Mass/Vol] 0.6 mg/dL Normal 0.50-0.90 [facility] Comment on above: Performed By: #### C DP, CP #### [facility] [address] [place] [address] It Telecom Technician: Patricio Kelley MD GFR/1.73 sq M.predicted among non-blacks MDRD (S/P/Bld) [Vol rate/Area] mL/min/{1.73_m2} Normal >60 [facility] Comment on above: Result Comment: These [...] tubular secretion. Performed By: #### C DP, CP #### [address] [place] [address] It Telecom Technician: Patricio Kelley MD Glucose [Mass/Vol] 79 mg/dL Normal 74-99 [facility] Comment on above: Performed By: #### C DP, CP #### [facility] [address] [place] [address] It Telecom Technician: Patricio Kelley MD Potassium [Moles/Vol] 3.6 mmol/L Low 3.7-5.3 [facility] Comment on above: Performed By: #### C DP, CP #### [facility] [address] [place] [address] It Telecom Technician: Patricio Kelley MD Protein [Mass/Vol] 6.0 g/dL Low 6.6-8.7 [facility] Comment on above: Performed By: #### C DP, CP #### [facility] [address] [place] [address] It Telecom Technician: Patricio Kelley MD Sodium [Moles/Vol] 138 mmol/L Normal 136-145 [facility] Comment on above: Performed By: #### C DP, CP #### [facility] [address] [place], [place] [id number] It Telecom Technician: Patricio Kelley MD Urea nitrogen [Mass/Vol] 5 mg/dL Low 6-20 [facility] Comment on above: Performed By: #### C DP, CP #### [facility] [address] [place], [place] [id number] It Telecom Technician: Patricio Kelley MD Comprehensive Metabolic Pane [facility] 05-18-2025 Albumin [Mass/Vol] 3.5 g/dL 3.5 - 5.2 g/dL [facility] Albumin/Globulin [Mass ratio] 1.4 {ratio} 1.0 - 2.5 [facility] ALP [Catalytic activity/Vol] 76 U/L 35 - 104 U/L [facility] ALT [Catalytic activity/Vol] 23 U/L 10 - 35 U/L [facility] Anion gap [Moles/Vol] 11 mmol/L 9 - 16 mmol/L [facility] AST [Catalytic activity/Vol] 24 U/L 10 - 35 U/L [facility] Bilirubin [Mass/Vol] 0.2 mg/dL 0.00 - 1.20 mg/dL [facility] Calcium [Mass/Vol] 9 mg/dL 8.6 - 10. 4 mg/dL [facility] Chloride [Moles/Vol] 106 mmol/L 98 - 107 mmol/L [facility] CO2 [Moles/Vol] 21 mmol/L 20 - 31 mmol/L [facility] Creatinine [Mass/Vol] 0.6 mg/dL 0.50 - 0.90 mg/dL [facility] Est, Glom Filt Rate - PINF [facility] Comment on above: These results are not [...] that affects renal tubular secretion. Glucose [Mass/Vol] 79 mg/dL 74 - 99 mg/dL [facility] Interpretation and review of laboratory results Abnormal [facility] Potassium [Moles/Vol] 3.6 mmol/L Low 3.7 - 5.3 mmol/L [facility] Protein [Mass/Vol] 6 g/dL Low 6.6 - 8.7 g/dL [facility] Sodium [Moles/Vol] 138 mmol/L 136 - 145 mmol/L [facility] Urea nitrogen [Mass/Vol] 5 mg/dL Low 6 - 20 mg/dL [facility] Urea nitrogen/Creatinin e [Mass ratio] 8 mg/mg Low 9 - 20 [facility] MHPT CBC WITH DIFFon 025 Basophils/100 WBC (Bld) 1 % 0 - 2 % [facility] Eosinophils/100 WBC (Bld) 2 % 1 - 4 % [facility] Erythrocyte distribution width (RBC) [Ratio] 12.8 % 11.8 - 14.4 % [facility] Hematocrit (Bld) [Volume fraction] 31.5 % Low 36.3 - 47.1 % [facility] Hemoglobin (Bld) [Mass/Vol] 10.9 g/dL Low 11.9 - 15.1 g/dL [facility] Immature granulocytes/100 WBC (Bld) 0 % 0 [facility] Interpretation and review of laboratory results Abnormal [facility] Lymphocytes/100 WBC (Bld) 33 % 24 - 43 % [facility] MCH (RBC) [Entitic mass] 28.1 pg 25.2 - 33.5 pg [facility] MCHC (RBC) [Mass/Vol] 34.6 g/dL 28.4 - 34.8 g/dL [facility] MCV (RBC) [Entitic vol] 81.2 fL Low 82.6 - 102.9 fL [facility] ABS. [facility]. [facility] 0.11 [facility] LYMPH 2.4 [facility] ABS. [facility]TE 0.45 [facility] ABS[facility]IMM.GRANULOCYT E 0.03 [facility].NEUTR[facility]HIL (SEG) 4.22 [facility] NR[facility] AUTOMATED 0 0.0 per 100 WBC [facility] MHPT PLATELET COUNT 193 [facility] MHPT WBC COUNT 7.3 [facility] Monocytes/100 WBC (Bld) 6 % 3 - 12 % [facility] Platelet mean volume (Bld) [Entitic vol] 12.3 fL 8.1 - 13.5 fL [facility] RBC (Bld) [#/Vol] 3.88 10*6/uL Low 3.95 - 5.1 1 m/uL [facility] Segmented neutrophils/100 WBC (Bld) 58 % 36 - 65 % [facility] Original Ordering Provider: EMMA RIVERA [facility] Protein / Creatinine Ratio, Urineon 05-18-2025 Creatinine (U) [Mass/Vol] 211 mg/dL 28.0 - 217.0 mg/dL [facility] Protein (U) [Mass/Vol] 14 mg/dL [facility] Comment on above: No normal range esta blished. Urine Total Protein Creatinine Ratio 0.07 0.00 - 0.20 [facility] Protein,Tot,[place] [facility] 2024 Creatinine [Mass/Vol] 211.0 mg/dL Normal 28.0-217.0 [facility] Comment on above: Performed By: #### U RTPRT #### [facility] [address] [place] [address] [place] [address] It Telecom Technician: Patricio Kelley MD Tot Prot. Conc. 14 mg/dL Normal [facility] Comment on above: Result Comment: No n ormal range established. Performed By: #### U RTPRT #### [facility] [address] [place] [address] It Telecom Technician: Patricio Kelley MD TP/Cre Ratio 0.07 Normal 0.00-0.20 [facility] Comment on above: Performed By: #### U RTPRT #### [facility] [address] [place] [address] [place] [address] It Telecom Technician: Patricio Kelley MD OB BPP W NON-STRESS on 05-10-2025 [place] [address] Ultrasound Report Signed Patient: EDGAR ORTIZ MR#: [id number] : 1995 Acct:[id number] Age/Sex: 29 / F ADM Date: 05/10/25 Loc: [place] [address]- Attending Dr: Leyla Matt Ordering Physician: Leyla Matt Date of Service: 05/10/25 Procedure(s): US OB BPP w non-stress Accession Number(s): [id number] cc: Leyla Matt; JOI LEWIS [place] [address] Patient Name: EDGAR ORTIZ MRN: [facility]:[id number] date: 1995 Sex: F Assigned Patient Location: [facility] Current Patient Location: [facility] Accession/Order Number: [id number] Exam Date: 05/10/2025 15:37 Report Date: 05/10/2025 15:42 At the request of: LEYLA MATT Procedure: US OB BPP w non-stress Biophysical profile. Reason for exam: Von Willebrand disease COMPARISON: 05/03/2025 TECHNIQUE: Transabdominal imaging of the gravid uterus was obtained. FINDINGS: The territory manager reports a BPP of 8 out of 8. ISABELL is normal at 13.7 cm. heart rate 142 bpm. US/US OB BPP w non-stress IMPRESSION: BPP 8 out of 8. Impression dictated by: Parrish Wise Jr., D.O. 05/10/2025 3:42 PM Dictation Location: [place] [address] Electronically authenticated by: [id number] Y Date: 05/10/2025 15:42 Dictated By: Parrish Wise M.D. Signed By: 05/10/25 1545 DD/ 154 TD/TT: Senior Architect/Design Manager: [facility] Radiology Radiologbee beltran MD - 05/10/2025 The [place] [id number] Ultrasound Report Signed Patient: EDGAR ORTIZ MR#: [id number] : 1995 Acct:[id number] Age/Sex: 29 / F ADM Date: 05/10/25 Loc: [facility] 250-[address]: Leyla Matt Ordering Physician: Leyla Matt Date of Service: 05/10/25 Procedure(s): US OB BPP w non-stress Accession Number(s): [id number] cc: Leyla Matt; JOI LEWIS [place] [id number] Patient Name: EDGAR ORTIZ MRN: [id number] date: 1995 Sex: F Assigned Patient Location: [facility] Current Patient Location: [facility] Accession/Order Number: [id number] Exam Date: 05/10/2025 15:37 Report Date: 05/10/2025 15:42 At the request of: LEYLA MATT Procedure: US OB BPP w non-stress Biophysical profile. Reason for exam: Von Willebrand disease COMPARISON: 05/03/2025 TECHNIQUE: Transabdominal imaging of the gravid uterus was obtained. FINDINGS: The territory manager reports a BPP of 8 out of 8. ISABELL is normal at 13.7 cm. heart rate 142 bpm. US/US OB BPP w non-stress IMPRESSION: BPP 8 out of 8. Impression dictated by: Parrish Wise Jr., D.O. 05/10/2025 3:42 PM Dictation Location: [place] [address] Electronically authenticated by: [id number] Y Date: 05/10/2025 15:42 Dictated By: Parrish Wise M.D. Signed By: 05/10/25 1545 DD/ 154 TD/TT: Senior Architect/Design Manager: [facility] Rad[facility] Study observation (narrative) [facility] US OB BPP W NON-STRESS Ordered By: Radiologist Radiology on 05-10-2025 [facility] [employer] Work Phone: US OB BPP W NON-STRESS on 05-03-[address] [address] Ultrasound Report Signed Patient: EDGAR ORTIZ MR#: [id number] : 1995 Acct:[id number] Age/Sex: 29 / F ADM Date: 05/03/25 Loc: [facility] 250-[address]: Leyla Matt Ordering Physician: Leyla Matt Date of Service: 05/03/25 Procedure(s): US OB BPP w non-stress Accession Number(s): [id number] cc: Leyla Matt; JOI LEWIS [place] [address] Patient Name: EDGAR ORTIZ MRN: [facility]:[id number] date: 1995 Sex: F Assigned Patient Location: [facility] Current Patient Location: [facility] Accession/Order Number: [id number] Exam Date: 05/03/2025 16:23 Report Date: 05/03/2025 16:24 At the request of: LEYLA MATT Procedure: US OB BPP w non-stress Biophysical profile. Reason for exam: Von Willebrand's disease COMPARISON: None TECHNIQUE: Transabdominal imaging of the gravid uterus was obtained. FINDINGS: The territory manager reports a BPP of 8 out of 8. ISABELL is normal at 17.4 cm. heart rate 131 bpm. US/US OB BPP w non-stress IMPRESSION: BPP 8 out of 8. Impression dictated by: Parrish Wise Jr., D.O. 05/03/2025 4:24 PM Dictation Location: [place] [address] Electronically authenticated by: [id number] Y Date: 05/03/2025 16:24 Dictated By: Parrish Wise M.D. Signed By: 05/03/25 1626 DD/ 162 TD/TT: Senior Architect/Design Manager: [facility] RadiologyCharmaineogbee ebltran MD - 05/03/2025 [place] [address] Ultrasound Report Signed Patient: EDGAR ORTIZ MR#: [id number] : 1995 Acct:[id number] Age/Sex: 29 / F ADM Date: 05/03/25 Loc: [facility] 250-[address]: Leyla Matt Ordering Physician: Leyla Matt Date of Service: 05/03/25 Procedure(s): US OB BPP w non-stress Accession Number(s): [id number] cc: Leyla Matt; JOI LEWIS [place] [address] Patient Name: EDGAR ORTIZ MRN: [facility]:[id number] date: 1995 Sex: F Assigned Patient Location: [facility] Current Patient Location: [facility] Accession/Order Number: [id number] Exam Date: 05/03/2025 16:23 Report Date: 05/03/2025 16:24 At the request of: LEYLA MATT Procedure: US OB BPP w non-stress Biophysical profile. Reason for exam: Von Willebrand's disease COMPARISON: None TECHNIQUE: Transabdominal imaging of the gravid uterus was obtained. FINDINGS: The territory manager reports a BPP of 8 out of 8. ISABELL is normal at 17.4 cm. heart rate 131 bpm. US/US OB BPP w non-stress IMPRESSION: BPP 8 out of 8. Impression dictated by: Parrish Wise Jr., D.O. 05/03/2025 4:24 PM Dictation Location: [place] [address] Electronically authenticated by: [id number] Y Date: 05/03/2025 16:24 Dictated By: Parrish Wise M.D. Signed By: 05/03/251625 DD/ 1624 TD/TT: Senior Architect/Design Manager: [facility] nap- Naturally Attached Parents Radiology Study observation (narrative) [facility] US OB BPP W NON-STRESS Ordered By: Radiologist Radiology on 05-03-2025 [facility] [employer] Work Phone: 37on 05-02-2025 37 No cardiac concerns with you (mild stenosis should be well tolerated) /can't hear any significant regurgitation EKG looks good Notify me when you are in labor (I do want to see baby after ) Follow-up first wee october [facility] Office Visiton 05-02-2025 Follow-up visit [id number] Rhiannon Ortiz 1995 F Date Provider Department Center 05/02/2025 BLAYNE JORDAN PED Luli Kim No family history on file Level of Service:73484 NM OFFICE/OP CONSLTJ NEW/EST PT LOW MDM 30 MINUTES Reason for Visit and Comments: Follow-up [603984] Normal [facility] US OB GROWTHon 04-22-2025 [place] [address] Ultrasound Report Signed Patient: EDGAR ORTIZ MR#: [id number] : 1995 Acct:[id number] Age/Sex: 29 / F ADM Date: 04/22/25 Loc: US Attending Dr: Leyla Matt Ordering Physician: Leyla Matt Date of Service: 04/22/25 Procedure(s): US OB growth Accession Number(s): [id number] cc: Leyla Matt; [place] [address] Patient Name: EDGAR ORTIZ MRN: [id number]:[id number] date: 1995 Sex: F Assigned Patient Location: US Current Patient Location: Accession/Order Number: [id number] Exam Date: 04/22/2025 16:36 Report Date: 04/22/2025 [...] Lovett M.D. 04/22/2025 4:39 PM Dictation Location: [place] [address] Electronically authenticated by: [id number] Y Date: 04/22/2025 16:39 Dictated By: Tyson Lovett M.D. Signed By: 04/22/25 1645 DD/ 1639 TD/TT: Senior Architect/Design Manager: [facility] Radiology Radiologbee beltran MD - 04/22/2025 [place] [address] Ultrasound Report Signed Patient: EDGAR ORTIZ MR#: [id number] : 1995 Acct:[id number] Age/Sex: 29 / F ADM Date: 04/22/25 Loc: US Attending Dr: Leyla Matt Ordering Physician: Leyla Matt Date of Service: 04/22/25 Procedure(s): US OB growth Accession Number(s): [id number] cc: Leyla Matt; JOI LEWIS [place] [phone] Patient Name: EDGAR ORTIZ MRN: [facility]:[id number] date: 1995 Sex: F Assigned Patient Location: Current Patient Location: US Accession/Order Number: [id number] Exam Date: 04/22/2025 16:36 Report Date: 04/22/2025 [...] Lovett M.D. 04/22/2025 4:39 PM Dictation Location: [place] [address] Electronically authenticated by: [id number] Y Date: 04/22/2025 16:39 Dictated By: Tyson Lovett M.D. Signed By: 04/22/25 1641 DD/ 1639 TD/TT: Senior Architect/Design Manager: [facility] Radiology Study observation (narrative) [facility] OB GROWTHOrdered By: Kushal ologist Radiology on 04-22-2025 [facility] [employer] Work Phone: Urinalysis macro (dipstick) panel (U)on 04-19-2025 Bilirubin, UA Negative Negative - 4(70) +++ mg/dL [facility] Blood, UA Negative Negative - 50 Stanford/mcL [facility] Clarity, UA Clear [facility] re Color, UA Yellow [facility] Glucose, UA Negative Negative - 1999(110) ++++ mg/dL [facility] Interpretation and review of laboratory results Normal [facility] Ketones, UA Negative Negative - 160(16) ++++ mg/dL [facility] Leukocytes, UA Negative Negative - 500+++ Yoni/mcL [facility] Nitrite, UA Negative Negative - Positive [facility] pH, UA 6 5 - 9 [facility] Protein, UA Negative Negative - 1999(20) ++++ mg/dL [facility] Spec Grav, UA 1.01 1 - 1.03 [facility] Urobilinogen, UA 0.2 0.2 - 12 mg/dL [facility] ALL CBC WITH AUTO DIFFon Erythrocyte distribution width (RBC) [Ratio] 13.1 % 11.8 - 14.4 % [facility] Hematocrit (Bld) [Volume fraction] 35.1 % Low 36.3 - 47.1 % [facility] Hemoglobin (Bld) [Mass/Vol] 11.7 g/dL Low 11.9 - 15.1 g/dL [facility] Interpretation and review of laboratory results Abnormal [facility] MCH (RBC) [Entitic mass] 28.1 pg 25.2 - 33.5 pg [facility] MCHC (RBC) [Mass/Vol] 33.3 g/dL 28.4 - 34.8 g/dL [facility] MCV (RBC) [Entitic vol] 84.4 fL 82.6 - 102.9 fL [facility] MHPT NRBC AUTOMATED 0 0.0 per 100 WBC [facility] MHPT PLATELET COUNT 194 [facility] MHPT WBC COUNT 9.8 [facility] Platelet mean volume (Bld) [Entitic vol] 11.7 fL 8.1 - 13.5 fL [facility] RBC (Bld) [#/Vol] 4.16 10*6/uL 3.95 - 5.1 1 m/uL [facility] Original Ordering Provider: JUNG RADER DO [facility] CBCon 03-22-2025 Erythrocyte distribution width (RBC) [Ratio] 13.1 % 11.8 - 14.4 % [facility] Hematocrit (Bld) [Volume fraction] 35.1 % Low 36.3 - 47.1 % [facility] Hemoglobin (Bld) [Mass/Vol] 11.7 g/dL Low 11.9 - 15.1 g/dL [facility] Interpretation and review of laboratory results Abnormal [facility] MCH (RBC) [Entitic mass] 28.1 pg 25.2 - 33.5 pg [facility] MCHC (RBC) [Mass/Vol] 33.3 g/dL 28.4 - 34.8 g/dL [facility] MCV (RBC) [Entitic vol] 84.4 fL 82.6 - 102.9 fL [facility] Nucleated RBC/100 WBC (Bld) [Ratio] 0 % 0.0 per 100 WBC [facility] Platelet mean volume (Bld) [Entitic vol] 11.7 fL 8.1 - 13.5 fL [facility] Platelets (Bld) [#/Vol] 194 10*3/uL [facility] RBC (Bld) [#/Vol] 4.16 10*6/uL 3.95 - 5.1 1 m/uL [facility] WBC other (Bld) [#/Vol] 9.8 [facility] Erythrocyte distribution width (RBC) [Ratio] 13.1 % Normal 11.8-14.4 [facility] Comment on above: Performed By: #### C BC, GLUSC #### [address] [place] [address] It Telecom Technician: Patricio Kelley MD Hematocrit (Bld) [Volume fraction] 35.1 % Low 36.3-47.1 [facility] Comment on above: Performed By: #### C BC, GLUSC #### [address] [place] [address] It Telecom Technician: Patricio Kelley MD Hemoglobin (Bld) [Mass/Vol] 11.7 g/dL Low 11.9-15.1 [facility] Comment on above: Performed By: #### C BC, GLUSC #### [address] [place] [address] It Telecom Technician: Patricio Kelley MD MCH (RBC) [Entitic mass] 28.1 pg Normal 25.2-33.5 [facility] Comment on above: Performed By: #### C BC, GLUSC #### [address] [place] [address] It Telecom Technician: Patricio Kelley MD MCHC (RBC) [Mass/Vol] 33.3 g/dL Normal 28.4-34.8 [facility] Comment on above: Performed By: #### C BC, GLUSC #### [address] [place] [address] It Telecom Technician: Patricio Kelley MD MCV (RBC) [Entitic vol] 84.4 fL Normal 82.6-102.9 [facility] Comment on above: Performed By: #### C BC, GLUSC #### [address] [place], [place] [id number] It Telecom Technician: Patricio Kelley MD NRBC Automated 0.0 per 100 WBC Normal 0.0 [facility] Comment on above: Performed By: #### C BC, GLUSC #### [facility] [address] [place], [place] [id number] It Telecom Technician: Patricio Kelley MD Platelet mean volume (Bld) [Entitic vol] 11.7 fL Normal 8.1-13.5 [facility] Comment on above: Performed By: #### C BC, GLUSC #### [facility] [address] [place], [place] [address] It Telecom Technician: Patricio Kelley MD Platelets (Bld) [#/Vol] 194 10*3/uL Normal 138-453 [facility] Comment on above: Performed By: #### C LEE, GLUSC #### [facility] [address] [place], [place] [address] It Telecom Technician: Patricio Kelley MD RBC (Bld) [#/Vol] 4.16 10*6/uL Normal 3.95-5.11 [facility] Comment on above: Performed By: #### C LEE, GLUSC #### [facility] [address] [place], [place] [id number] It Telecom Technician: Patricio Kelley MD WBC (Bld) [#/Vol] 9.8 10*3/uL Normal 3.5-11.3 [facility] Comment on above: Performed By: #### C LEE, GLUSC #### [facility] [address] [place] [address] It Telecom Technician: Patricio Kelley MD Glucose Challenge Gestationa jolene 03-22-2025 GLU ADMN Glucola [facility] Glucose 1 Hr post 50 g glucose PO [Mass/Vol] 119 mg/dL 70 - 135 mg/dL [facility] Glucose Mikel Scr 50gon 2024 Glucose [Mass/Vol] 119 mg/dL Normal 70-135 [facility] Comment on above: Performed By: #### C BC, GLUSC #### [facility] [address] [place] [address] It Telecom Technician: Patricio Kelley MD Glu Administered via Glucola Normal [facility] Comment on above: Performed By: #### C BC, GLUSC #### [facility] [address] [place] [address] It Telecom Technician: Patricio Kelley MD Urinalysis macro (dipstick) panel (U)on 03-14-2025 Bilirubin, UA Negative Negative - 4(70) +++ mg/dL [facility] Blood, UA Negative Negative - 50 Stanford/mcL [facility] Clarity, UA Clear [facility] re Color, UA Yellow [facility] Glucose, UA Negative Negative - 2000(110) ++++ mg/dL [facility] Interpretation and review of laboratory results Normal [facility] re Ketones, UA Negative Negative - 160(16) ++++ mg/dL [facility] Leukocytes, UA Negative Negative - 500+++ Yoni/mcL [facility] Nitrite, UA Negative Negative - Positive [facility] pH, UA 7 5 - 9 [facility] e Protein, UA Negative Negative - 2000(20) ++++ mg/dL [facility] Spec Grav, UA 1.02 1 - 1.03 [facility] Urobilinogen, UA 0.2 0.2 - 12 mg/dL [facility] CBC with Auto Differentialon 02-24-2025 Basophils (Bld) [#/Vol] 0.03 10*3/uL [facility] Basophils/100 WBC (Bld) 0 % 0 - 2 % [facility] Eosinophils (Bld) [#/Vol] 0.09 10*3/uL [facility] Eosinophils/100 WBC (Bld) 1 % 1 - 4 % [facility] Erythrocyte distribution width (RBC) [Ratio] 13 % 11.8 - 14.4 % [facility] [facility] Hematocrit (Bld) [Volume fraction] 34.7 % Low 36.3 - 47.1 % [facility] Hemoglobin (Bld) [Mass/Vol] 11.7 g/dL Low 11.9 - 15.1 g/dL [facility] Immature granulocytes (Bld) [#/Vol] 0.04 10*3/uL [facility] Immature granulocytes/100 WBC (Bld) 0 % 0 [facility] Interpretation and review of laboratory results Abnormal [facility] Lymphocytes/100 WBC (Bld) 23 % Low 24 - 43 % [facility] Lymphocytes/100 WBC (Bld) 2.34 % [facility] MCH (RBC) [Entitic mass] 27.7 pg 25.2 - 33.5 pg [facility] MCHC (RBC) [Mass/Vol] 33.7 g/dL 28.4 - 34.8 g/dL [facility] MCV (RBC) [Entitic vol] 82.2 fL Low 82.6 - 102.9 fL [facility] Monocytes/100 WBC (Bld) 6 % 3 - 12 % [facility] Monocytes/100 WBC (Bld) 0.59 % [facility] Neutrophils/100 WBC (Bld) 70 % High 36 - 65 % [facility] Nucleated RBC/100 WBC (Bld) [Ratio] 0 % 0.0 per 100 WBC [facility] Platelet mean volume (Bld) [Entitic vol] 11.2 fL 8.1 - 13.5 fL [facility] Platelets (Bld) [#/Vol] 215 10*3/uL [facility] RBC (Bld) [#/Vol] 4.22 10*6/uL 3.95 - 5.1 1 m/uL [facility] Segmented neutrophils/100 WBC (Bld) 6.94 % [facility] WBC other (Bld) [#/Vol] 10 [facility] CBC with Diffon 02-24-2025 Abs. Basophil 0.03 k/uL Normal 0.00-0.20 [facility] Comment on above: Performed By: #### C DP, CMPX, MG #### [address] [place] [address] It Telecom Technician: Patricio Kelley MD Abs.Imm.Granulocyt e 0.04 k/uL Normal 0.00-0.30 [facility] Comment on above: Performed By: #### C DP, CMPX, MG #### [address] [place], [facility]83 It Telecom Technician: Patricio Kelley MD Abs.Neutrophil (Seg) 6.94 k/uL Normal 1.50-8.10 [facility] Comment on above: Performed By: #### C DP, CMPX, MG #### [address] [place], [facility]83 It Telecom Technician: Patricio Kelley MD Basophils/100 WBC (Bld) 0 % Normal 0-2 [facility] Comment on above: Performed By: #### C DP, CMPX, MG #### [address] [place], [facility]83 It Telecom Technician: Patricio Kelley MD Eosinophils (Bld) [#/Vol] 0.09 10*3/uL Normal 0.00-0.44 [facility] Comment on above: Performed By: #### C DP, CMPX, MG #### [address] [place], [facility]83 It Telecom Technician: Patricio Kelley MD Eosinophils/100 WBC (Bld) 1 % Normal 1-4 [facility] Comment on above: Performed By: #### C DP, CMPX, MG #### [address] [place] [address] It Telecom Technician: Ptaricio Kelley MD Erythrocyte distribution width (RBC) [Ratio] 13.0 % Normal 11.8-14.4 [facility] Comment on above: Performed By: #### C DP, CMPX, MG #### [address] [place], [facility]83 It Telecom Technician: Patricio Kelley MD Hematocrit (Bld) [Volume fraction] 34.7 % Low 36.3-47.1 [facility] Comment on above: Performed By: #### C DP, CMPX, MG #### [facility] [address] [place] [address] [place] [id number] It Telecom Technician: Patricio Kelley MD Hemoglobin (Bld) [Mass/Vol] 11.7 g/dL Low 11.9-15.1 [facility] Comment on above: Performed By: #### C DP, CMPX, MG #### [address] [place] [id number] It Telecom Technician: Patricio Kelley MD Immature granulocytes/100 WBC (Bld) 0 % Normal 0 [facility] Comment on above: Performed By: #### C DP, CMPX, MG #### [address] [place], [facility]83 It Telecom Technician: Patricio Kelley MD Lymphocytes (Bld) [#/Vol] 2.34 10*3/uL Normal 1.10-3.70 [facility] Comment on above: Performed By: #### C DP, CMPX, MG #### [address] [place] [id number] It Telecom Technician: Patricio Kelley MD Lymphocytes/100 WBC (Bld) 23 % Low 24-43 [facility] Comment on above: Performed By: #### C DP, CMPX, MG #### [address] [place], [place] [id number] It Telecom Technician: Patricio Kelley MD MCH (RBC) [Entitic mass] 27.7 pg Normal 25.2-33.5 [facility] Comment on above: Performed By: #### C DP, CMPX, MG #### [address] [place] [address] It Telecom Technician: Patricio Kelley MD MCHC (RBC) [Mass/Vol] 33.7 g/dL Normal 28.4-34.8 [facility] Comment on above: Performed By: #### C DP, CMPX, MG #### [facility] [address] [place] [address] It Telecom Technician: Patricio Kelley MD MCV (RBC) [Entitic vol] 82.2 fL Low 82.6-102.9 [facility] Comment on above: Performed By: #### C DP, CMPX, MG #### [address] [place] [address] It Telecom Technician: Patricio Kelley MD Monocytes (Bld) [#/Vol] 0.59 10*3/uL Normal 0.10-1.20 [facility] Comment on above: Performed By: #### C DP, CMPX, MG #### [facility] [address] [place] [address] Dr. [place], [facility]83 It Telecom Technician: Patricio Kelley MD Monocytes/100 WBC (Bld) 6 % Normal 3-12 [facility] Comment on above: Performed By: #### C DP, CMPX, MG #### [address] [place] [address] It Telecom Technician: Patricio Kelley MD Neutrophil (Seg) 70 % High 36-65 [facility] Comment on above: Performed By: #### C DP, CMPX, MG #### [facility] [address] [place] [address] It Telecom Technician: Patricio Kelley MD NRBC Automated 0.0 per 100 WBC Normal 0.0 [facility] Comment on above: Performed By: #### C DP, CMPX, MG #### [facility] [address] [place] [address] It Telecom Technician: Patricio Kelley MD Platelet mean volume (Bld) [Entitic vol] 11.2 fL Normal 8.1-13.5 [facility] Comment on above: Performed By: #### C DP, CMPX, MG #### [facility] [address] [place], [place] [id number] It Telecom Technician: Patricio Kelley MD Platelets (Bld) [#/Vol] 215 10*3/uL Normal 138-453 [facility] Comment on above: Performed By: #### C DP, CMPX, MG #### [facility] [address] [place] [address] It Telecom Technician: Patricio Kelley MD RBC (Bld) [#/Vol] 4.22 10*6/uL Normal 3.95-5.11 [facility] Comment on above: Performed By: #### C DP, CMPX, MG #### [address] [place], [place] [address] It Telecom Technician: Patricio Kelley MD WBC (Bld) [#/Vol] 10.0 10*3/uL Normal 3.5-11.3 [facility] Comment on above: Performed By: #### C DP, CMPX, MG #### [address] [place], [place] [id number] It Telecom Technician: Patricio Kelley MD Comp Metabolic Pr/rfx MGon 0 - Albumin [Mass/Vol] 3.8 g/dL Normal 3.5-5.2 [facility] Comment on above: Performed By: #### C DP, CMPX, MG #### [facility] [address] [place], [place] [id number] It Telecom Technician: Patricio Kelley MD Albumin/Glob Ratio 1.5 Normal 1.0-2.5 [facility] Comment on above: Performed By: #### C DP, CMPX, MG #### [address] [place], [place] [id number] It Telecom Technician: Patricio Kelley MD Alkaline Phos 65 U/L Normal 35-104 [facility] Comment on above: Performed By: #### C DP, CMPX, MG #### [facility] [address] [place] [address] It Telecom Technician: Patricio Kelley MD ALT [Catalytic activity/Vol] 123 U/L High 10-35 [facility] Comment on above: Performed By: #### C DP, CMPX, MG #### [facility] [address] [place] [address] It Telecom Technician: Patricio Kelley MD Anion gap [Moles/Vol] 11 mmol/L Normal 9-16 [facility] Comment on above: Performed By: #### C DP, CMPX, MG #### [facility] [address] [place] [address] It Telecom Technician: Patricio Kelley MD AST [Catalytic activity/Vol] 47 U/L High 10-35 [facility] Comment on above: Performed By: #### C DP, CMPX, MG #### [facility] [address] [place] [address] It Telecom Technician: Patricio Kelley MD Bilirubin [Mass/Vol] mg/dL Normal 0.00-1.20 [facility] Comment on above: Performed By: #### C DP, CMPX, MG #### [facility] [address] [place] [address] It Telecom Technician: Patricio Kelley MD BUN/CRE Ratio 13 Normal 9-20 [facility] Comment on above: Performed By: #### C DP, CMPX, MG #### [facility] [address] [place] [address] It Telecom Technician: Patricio Kelley MD Calcium [Mass/Vol] 9.1 mg/dL Normal 8.6-10.4 [facility] Comment on above: Performed By: #### C DP, CMPX, MG #### [facility] [address] [place] [address] It Telecom Technician: Patricio Kelley MD Chloride [Moles/Vol] 101 mmol/L Normal 98-107 [facility] Comment on above: Performed By: #### C DP, CMPX, MG #### [facility] [address] [place], [place] [id number] It Telecom Technician: Patricio Kelley MD CO2 [Moles/Vol] 25 mmol/L Normal 20-31 [facility] Comment on above: Performed By: #### C DP, CMPX, MG #### [facility] [address] [place], [place] [id number] It Telecom Technician: Patricio Kelley MD Creatinine [Mass/Vol] 0.6 mg/dL Normal 0.50-0.90 [facility] Comment on above: Performed By: #### C DP, CMPX, MG #### [facility] [address] [place] [address] It Telecom Technician: Patricio Kelley MD GFR/1.73 sq M.predicted among non-blacks MDRD (S/P/Bld) [Vol rate/Area] mL/min/{1.73_m2} Normal >60 [facility] Comment on above: Result Comment: These [...] By: #### C DP, CMPX, MG #### [facility] [address] [place] [address] It Telecom Technician: Patricio Kelley MD Glucose [Mass/Vol] 85 mg/dL Normal 74-99 [facility] Comment on above: Performed By: #### C DP, CMPX, MG #### [facility] [address] [place] [address] It Telecom Technician: Patricio Kelley MD Potassium [Moles/Vol] 3.6 mmol/L Low 3.7-5.3 [facility] Comment on above: Performed By: #### C DP, CMPX, MG #### [facility] [address] [place], [place] [id number] It Telecom Technician: Patricio Kelley MD Protein [Mass/Vol] 6.5 g/dL Low 6.6-8.7 [facility] Comment on above: Performed By: #### C DP, CMPX, MG #### [facility] [address] [place], [place] [id number] It Telecom Technician: Patricio Kelley MD Sodium [Moles/Vol] 137 mmol/L Normal 136-145 [facility] Comment on above: Performed By: #### C DP, CMPX, MG #### [facility] [address] [place] [address] It Telecom Technician: Patricio Kelley MD Urea nitrogen [Mass/Vol] 8 mg/dL Normal 6-20 [facility] Comment on above: Performed By: #### C DP, CMPX, MG #### [facility] [address] [place] [address] It Telecom Technician: Patricio Kelley MD Comprehensive Metabolic Pane l w/ Reflex to on 02-24-2025 Albumin [Mass/Vol] 3.8 g/dL 3.5 - 5.2 g/dL [facility] Albumin/Globulin [Mass ratio] 1.5 {ratio} 1.0 - 2.5 [facility] ALP [Catalytic activity/Vol] 65 U/L 35 - 104 U/L [facility] ALT [Catalytic activity/Vol] 123 U/L High 10 - 35 U/L [facility] Anion gap [Moles/Vol] 11 mmol/L 9 - 16 mmol/L [facility] AST [Catalytic activity/Vol] 47 U/L High 10 - 35 U/L [facility] Bilirubin [Mass/Vol] mg/dL 0.00 - 1.20 mg/dL [facility] Calcium [Mass/Vol] 9.1 mg/dL 8.6 - 10. 4 mg/dL [facility] Chloride [Moles/Vol] 101 mmol/L 98 - 107 mmol/L [facility] CO2 [Moles/Vol] 25 mmol/L 20 - 31 mmol/L [facility] Creatinine [Mass/Vol] 0.6 mg/dL 0.50 - 0.90 mg/dL [facility] Est, Globenny Hallt Rate - PINF [facility] Comment on above: These results are not [...] [Mass/Vol] 85 mg/dL 74 - 99 mg/dL [facility] Interpretation and review of laboratory results Abnormal [facility] Potassium [Moles/Vol] 3.6 mmol/L Low 3.7 - 5.3 mmol/L [facility] Protein [Mass/Vol] 6.5 g/dL Low 6.6 - 8.7 g/dL [facility] Sodium [Moles/Vol] 137 mmol/L 136 - 145 mmol/L [facility] Urea nitrogen [Mass/Vol] 8 mg/dL 6 - 20 mg/dL [facility] Urea nitrogen/Creatinin e [Mass ratio] 13 mg/mg 9 - 20 [facility] Magnesiumon 02-24-2025 Magnesium [Mass/Vol] 2 mg/dL 1.6 - 2.6 mg/dL [facility] Magnesium [Mass/Vol] 2.0 mg/dL Normal 1.6-2.6 [facility] Comment on above: Performed By: #### C DP, CMPX, MG #### [facility] [address] [place] [address] It Telecom Technician: Patricio Kelley MD Microscopic Urinalysison Amorphous sediment LM Ql (Urine sed) 2+ Abnormal None [facility] Bacteria LM Ql (Urine sed) TRACE Abnormal None [facility] Epithelial cells LM.HPF (Urine sed) [#/Area] 2 TO 5 [facility] Interpretation and review of laboratory results Abnormal [facility] RBC LM.HPF (Urine sed) [#/Area] 0 TO 2 [facility] WBC LM.HPF (Urine sed) [#/Area] 0 TO 2 [facility] No Panel Informationon 02-24 [facility] Protein / creatinine ratio, urineon 02-24-2025 Creatinine (U) [Mass/Vol] 110 mg/dL 28.0 - 217.0 mg/dL [facility] Protein (U) [Mass/Vol] 7 mg/dL [facility] Comment on above: No normal range esta blished. Urine Total Protein Creatinine Ratio 0.06 0.00 - 0.20 [facility] Protein,Tot,[place] Uron 2024 Creatinine [Mass/Vol] 110.0 mg/dL Normal 28.0-217.0 [facility] Comment on above: Performed By: #### C DP, CP #### [facility] [address] [place] [address] Dr[place], [place] [id number] It Telecom Technician: Patricio Kelley MD Tot Prot. Conc. 7 mg/dL Normal [facility] Comment on above: Result Comment: No n ormal range established. Performed By: #### C DP, CP #### [facility] [address] [place] [address] It Telecom Technician: Patricio Kelley MD TP/Cre Ratio 0.06 Normal 0.00-0.20 [facility] Comment on above: Performed By: #### C DP, CP #### [facility] [address] [place] [address] It Telecom Technician: Patricio Kelley MD UA w/Reflex Cultureon 2024 Bilirubin, SemiQt,Ur Negative Normal NEG [facility] Comment on above: Performed By: #### U AX, UMICAO ####[facility] [place] [address] Lab Director: Patricio Kelley MD Blood, Urine Negative Normal [facility] Comment on above: Performed By: #### U AX, UMICAO ####[address] [place] [address] Lab Director: Patricio Kelley MD Clarity (U) SLIGHTLY CLOUDY Abnormal CLEAR [facility] Comment on above: Performed By: #### U AX, UMICAO ####[address] [place] [address] Lab Director: Patricio Kelley MD Color (U) [place] Abnormal YEL [facility] Comment on above: Performed By: #### U AX, UMICAO ####[address] [place] [address] Lab Director: Patricio Kelley MD Glucose Ql (U) Negative Normal NEG [facility] in [facility] Comment on above: Performed By: #### U AX, UMICAO ####[address] [place] [address] Lab Director: Patricio Kelley MD Ketones Ql (U) Negative Normal NEG [facility] in Hospital Comment on above: Performed By: #### U AX, UMICAO ####[address] [place] [address] Lab Director: Patricio Kelley MD Leukocyte esterase Test strip Ql (U) Negative Normal NEG [facility] Comment on above: Performed By: #### U AX, UMICAO ####[address] [place] [address] Lab Director: Patricio Kelley MD Nitrite,Ur Negative Normal NEG [facility] Comment on above: Performed By: #### U AX, UMICAO ####[address] [place] [address] Lab Director: Patricio Kelley MD PH,Ur 7.5 Normal 5.0-9.0 [facility] Comment on above: Performed By: #### U AX, UMICAO ####[address] [place] [address] Lab Director: Patricio Kelley MD Protein Ql (U) Negative Normal NEG [facility] Comment on above: Performed By: #### U AX, UMICAO ####[address] [place] [address] Lab Director: Patricio Kelley MD Spec. [place],Ur 1.015 Normal 1.010-1.020 [facility] Comment on above: Performed By: #### U AX, UMICAO ####[address] , [place] 1073983 Lab Director: Patricio Kelley MD Urobilinogen,Ur Normal Normal 0.0-1.0 [facility] Comment on above: Performed By: #### U AX, UMICAO ####[address] [place] [address] Lab Director: Patricio Kelley MD Urinalysis with Reflex to Cu ltureon 02-24-2025 Bilirubin Ql (U) Negative NEGATIVE [facility] Clarity (U) SLIGHTLY CLOUDY Abnormal Clear [facility] Color (U) [place] Abnormal Yellow [facility] Glucose Test strip (U) [Mass/Vol] Negative NEGATIVE mg/dL [facility] Hemoglobin Auto test strip Ql (U) Negative NEGATIVE [facility] Interpretation and review of laboratory results Abnormal [facility] Ketones (U) [Mass/Vol] Negative NEGATIVE mg/dL [facility] Leukocyte esterase Test strip Ql (U) Negative NEGATIVE [facility] Nitrite Ql (U) Negative NEGATIVE [facility] pH (U) 7.5 [pH] 5.0 - 9.0 [facility] Protein (U) [Mass/Vol] Negative NEGATIVE mg/dL [facility] Specific gravity (U) [Rel density] 1.015 1.010 - 1.020 [facility] Urobilinogen Qn (U) Normal 0.0 - 1.0 EU/dL [facility] Urinalysis,Microon 5 Amorphous sediment LM Ql (Urine sed) 2+ Abnormal [facility] Comment on above: Performed By: #### U AX UMICAO ####[address] , [facility]83 [facility] Director: Patricio Kelley MD Bacteria TRACE Abnormal [facility] Comment on above: Performed By: #### U AXNYLAICAO ####[address] , [facility]83 Lab Director: Patricio Kelley MD Epithelial cells LM Ql (Urine sed) 2 TO 5 Normal 0-25 [facility] Comment on above: Performed By: #### U AX UMICAO ####[address] , [facility]83 Lab Director: Patricio Kelley MD Urine RBC's 0 TO 2 Normal 0-2 [facility] Comment on above: Performed By: #### U AX UMICAO ####[address] , [facility]83 Lab Director: Patricio Kelley MD Urine WBC's 0 TO 2 Normal 0-5 [facility] Comment on above: Performed By: #### U AX, UMICAO ####[facility] [place] [address] , [place] [id number] [facility] Director: Patricio Kelley MD 36on 02-16-2025 36 Spoke with patient raimundo pepper was calling to request a echo at 24 weeks gestation scheduled. I informed her that we would be in touch once the order is placed and we are able to put her on the schedule to have this done. Patient is currently 20 weeks. Normal [facility] IGP,APTIMA HPV,AGE GDLNon AGE GDLN ACOG TESTING Note . [facility] Comment on above: TESTS RESULT FLAG UN ITS REF RANGE LAB Clinician Provided Cytology Information Source.............Cervix Other.............. No. of containers..01 ThinPrep Vial Age Algo ACOG Cecille... 30-65 01 FLAG LEGEND: L-Low Normal,H-High Normal,LL-Alert Low,HH-Alert High <-Panic Low,>-Panic High,A-Abnormal,AA-Critical Abnormal Performed at: 01 =G [address] [id number] Jasmine Drew MD, HPV APTIMA Negative Negative [facility] Comment on above: This nucleic acid am plification test detects fourteen high- risk HPV types (16,18,31,33,35,39,45,51,52,56,58,59,66,68) without differentiation. Performed at: = - [address] [id number] It Telecom Technician: Jasmine Drew MD, Phone: [phone] Performed at: - [address] [id number] It Telecom Technician: Jasmine Drew MD, Phone: [phone] IGP, APTIMA HPV, RFX 16/18,45 Note . [facility] Comment on above: TESTS RESULT FLAG UN ITS REF RANGE LAB DIAGNOSIS: 02 NEGATIVE FOR INTRAEPITHELIAL LESION OR MALIGNANCY. Specimen adequacy: 02 Satisfactory for evaluation. No endocervical component is identified. An endocervical component is not commonly seen in the patient. Performed by: Priya Sanchez, Director Of Food And Nutrition (ASCP) . 02 Note: Note 02 The [...] <-Panic Low,>-Panic High,A-Abnormal,AA-Critical Abnormal Performed at: [address] [address] Jasmine Drew MD, SPATULA-ALONE CERVIX [facility] Health[facility] e RECURRENT VAGINITIS (HTRX)on 02-11-2025 ATOPOBIUM VAGINAE 0 [facility] ATOPOBIUM VAGINAE Not detected [facility] BVAB 2,3 (BACTERIAL VAGINOSIS ASSOCIATED BACTERIA 2, 3); MOBILUNCUS SPP 0 [facility] BVAB 2,3 (BACTERIAL VAGINOSIS ASSOCIATED BACTERIA 2, 3); MOBILUNCUS SPP Not detected [facility] PATRICE ALBICANS, PARAPSILOSIS, TROPICALIS 0 [facility] PATRICE ALBICANS, PARAPSILOSIS, TROPICALIS Not detected [facility] PATRICE GLABRATA 0 [facility] Hea lthcare PATRICE GLABRATA Not detected [facility] PATRICE KRUSEI 0 [facility] PATRICE KRUSEI Not detected [facility] CHLAMYDIA TRACHOMATIS [address] [facility] Healthcare CHLAMYDIA TRACHOMATIS Not detected [facility] Healthcare GARDNERELLA VAGINALIS 0 [facility] GARDNERELLA VAGINALIS Not detected [facility] MEGASPHAERA (TYPES 1, 2) 0 [facility] MEGASPHAERA (TYPES 1, 2) Not detected [facility] MYCOPLASMA GENITALIUM 0 [facility] MYCOPLASMA GENITALIUM Not detected [facility] NEISSERIA GONORRHOEAE 0 [facility] NEISSERIA GONORRHOEAE Not detected [facility] TRICHOMONAS VAGINALIS 0 [facility] TRICHOMONAS VAGINALIS Not detected [facility] Urinalysis macro (dipstick) panel (U)on 02-09-2025 Bilirubin, UA Negative Negative - 4(70) +++ mg/dL [facility] Blood, UA Negative Negative - 50 [place]/mcL [facility] Clarity, UA Clear [facility] Healthfl re Color, UA Yellow [facility] Glucose, UA Negative Negative - 2000(110) ++++ mg/dL [facility] Interpretation and review of laboratory results Normal [facility] Healthfl re Ketones, UA Negative Negative - 160(16) ++++ mg/dL [facility] Leukocytes, UA Negative Negative - 500+++ Yoni/mcL [facility] Nitrite, UA Negative Negative - Positive [facility] [facility] pH, UA 7.5 5 - 9 [facility] Healthcar e Protein, UA Negative Negative - 1999(20) ++++ mg/dL [facility] Spec Grav, UA 1.02 1 - 1.03 [facility] Urobilinogen, UA 0.2 0.2 - 12 mg/dL [facility] Health[facility] Orders Onlyon 01-18-2025 Orders Only [id number] Rhiannon Ortiz 1995 F Date Provider Department Center 01/18/2025 [id number] ROBLERO RPW PED [employer] No family history on file Normal [facility] 37on 12-27-2024 37 Exam looks unchanged BP was excellent I can still hear the aortic valve stenosis and regurgitation Need your outpatient echo echo at 24 weeks Next wisit is 4.5 months Normal [facility] Office Visiton 12-27-2024 Follow-up visit [id number] Rhiannon Ortiz 1995 F Date Provider Department Center 12/27/2024 BLAYNE JORDAN RPW PED [employer] No family history on file Level of Service:[id number] NM OFFICE/OP CONSLTJ NEW/EST PT HIGH MDM 55 MINUTES Reason for Visit and Comments: Follow-up [367629] pregnency [Other] - Congenital aortic stenosis /regurgitation Normal [facility] ALL CBC WITH AUTO DIFFon BASOPHILS ABSOLUTE AUTO 0 [facility] Basophils/100 WBC (Bld) 0.3 % 0.2 - 2.0 % [facility] Eosinophils/100 WBC (Bld) 0.7 % Low 0.9 - 7.0 % [facility] Erythrocyte distribution width (RBC) [Ratio] 12.2 % 11.0 - 15.0 % [facility] Hematocrit (Bld) [Volume fraction] 37.2 % 36.0 - 48.0 % [facility] Hemoglobin (Bld) [Mass/Vol] 12.8 g/dL 12.0 - 16.0 g/dL [facility] IMMATURE GRANULOCYTES ABS AUTO 0.04 High [facility] Immature granulocytes/100 WBC (Bld) 0.4 % 0.0 - 0.5 % [facility] Interpretation and review of laboratory results Abnormal [facility] LYMPHOCYTES ABSOLUTE AUTO 1.6 [facility] Lymphocytes/100 WBC (Bld) 15.3 % Low 20.5 - 60.0 % [facility] MCH (RBC) [Entitic mass] 27.4 pg 26.7 - 34.0 pg [facility] MCHC (RBC) [Mass/Vol] 34.4 g/dL 29.9 - 35.2 g/dL [facility] MCV (RBC) [Entitic vol] 79.7 fL Low 81.0 - 99.0 fL [facility] MONOCYTES ABSOLUTE AUTO 0.6 [facility] Monocytes/100 WBC (Bld) 5.4 % 1.7 - 12.0 % [facility] NEUTROPHILS ABSOLUTE AUTO 8.3 High [facility] Neutrophils/100 WBC (Bld) 77.9 % High 43.0 - 75.0 % [facility] Platelet mean volume (Bld) [Entitic vol] 11.6 fL 9.5 - 13.5 fL [facility] TBH EO # 0.1 [facility] PLT 232 [facility] e TB RBC 4.67 [facility] W[facility] 10.7 [facility] Healthcar e [facility] Healthcar e HCG ( test) Ql (U)o n 12-10-2024 Interpretation and review of laboratory results Abnormal [facility] re Preg Test, Ur Positive Negative [facility] Healthcar e US OB TRANSVAGINALon 025 US [...] II, MD, PHD at 11-Dec-2024 07:22:45 AM [facility] [employer] Normal Not Available Comment on above: Order Comment: US OB TRANSVAGINAL No LMP recorded. Urinalysis macro (dipstick) panel (U)on 12-10-2024 Bilirubin, UA Negative Negative - 4(70) +++ mg/dL [facility] Blood, UA Negative Negative - 50 Stanford/mcL [facility] Clarity, UA Clear [facility] Healthfl re Color, UA Yellow [facility] Glucose, UA Negative Negative - 1999(110) ++++ mg/dL [facility] Interpretation and review of laboratory results Normal [facility] re Ketones, UA Negative Negative - 160(16) ++++ mg/dL [facility] Leukocytes, UA Negative Negative - 500+++ Yoni/mcL [facility] Nitrite, UA Negative Negative - Positive [facility] pH, UA 5.5 5 - 9 [facility] e Protein, UA Negative Negative - 1999(20) ++++ mg/dL [facility] Spec Grav, UA 1.025 1 - 1.03 [facility] Urobilinogen, UA 0.2 0.2 - 12 mg/dL [facility] Healthcar e MRI BRAIN W WO CONTRASTon MRI BRAIN W WO CONTRAST EXAMINATION: MRI OF THE BRAIN WITHOUT AND WITH CONTRAST 06/09/2024 12:35 pm TECHNIQUE: Multiplanar multisequence MRI of the head/brain was performed without and with the administration of intravenous contrast. COMPARISON: None. 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 This test was developed and its performance characteristics determined by [employer]. It has not been cleared or approved by the US Food and Drug Administration. This test was performed in a CLIA certified laboratory and is intended for clinical purposes. Performed By: [employer] [address] [place] [id number] [employer] Bo[employer] Inspector: John Maradiaga MD, PhD CLIA Number: [id number] Performed By: #### C DP, CP #### [facility] [address] [place] [address] [employer] Technician: Patricio Kelley MD US PELVIS COMPLETEon 024 [...] Adonay Frank MD 05/29/24 Final result Normal [facility] US Pelvison 05-29-2024 1. Myometrial heterogeneity that could be seen with adenomyosis, incompletely evaluated due to lack of transvaginal imaging. 2. Normal transabdominal sonographic appearance of the ovaries. [facility] EXAMINATION: PELVIC ULTRASOUND 05/28/2024 9:17 pm [...] degree of vascularity. FREE FLUID: None visualized. [facility] Adonay Frank MD - 05/29/2024 [...] Normal transabdominal sonographic appearance of the ovaries. [facility] US PelvisOrdered By: Adonay Frank on 05-29-2024 [facility] [employer] Work Phone: US Pelvison 05-28-2024 Radiology Study observation (narrative) [facility] CBC with Auto Differentialon 05-27-2024 Basophils (Bld) [#/Vol] 0.04 10*3/uL [facility] Basophils/100 WBC (Bld) 0 % 0 - 2 % [facility] Eosinophils (Bld) [#/Vol] 0.30 10*3/uL [facility] Eosinophils/100 WBC (Bld) 3 % 1 - 4 % [facility] Erythrocyte distribution width (RBC) [Ratio] 12.7 % 11.8 - 14.4 % [facility] Hematocrit (Bld) [Volume fraction] 42.2 % 36.3 - 47.1 % [facility] Hemoglobin (Bld) [Mass/Vol] 14.5 g/dL 11.9 - 15.1 g/dL [facility] Immature granulocytes (Bld) [#/Vol] 0.04 10*3/uL [facility] Immature granulocytes/100 WBC (Bld) 0 % 0 [facility] Interpretation and review of laboratory results Abnormal [facility] Lymphocytes/100 WBC (Bld) 23 % Low 24 - 43 % [facility] Lymphocytes/100 WBC (Bld) 2.20 % [facility] MCH (RBC) [Entitic mass] 27.6 pg 25.2 - 33.5 pg [facility] MCHC (RBC) [Mass/Vol] 34.4 g/dL 28.4 - 34.8 g/dL [facility] MCV (RBC) [Entitic vol] 80.4 fL Low 82.6 - 102.9 fL [facility] Monocytes/100 WBC (Bld) 6 % 3 - 12 % [facility] Monocytes/100 WBC (Bld) 0.54 % [facility] Neutrophils/100 WBC (Bld) 68 % High 36 - 65 % [facility] Nucleated RBC/100 WBC (Bld) [Ratio] 0.0 % 0.0 per 100 WBC [facility] Platelet mean volume (Bld) [Entitic vol] 11.5 fL 8.1 - 13.5 fL [facility] Platelets (Bld) [#/Vol] 246 10*3/uL [facility] RBC (Bld) [#/Vol] 5.25 10*6/uL High 3.95 - 5.1 1 m/uL [facility] Segmented neutrophils/100 WBC (Bld) 6.39 % [facility] WBC other (Bld) [#/Vol] 9.5 [facility] CBC with Diffon 05-27-2024 Abs. Basophil 0.04 k/uL Normal 0.00-0.20 [facility] Comment on above: Performed By: #### L H, DHES, GLYHGB, PROL, FSH, FT4 ####[facility] [address] [place] [address] Lab Director: Eliecer Barreto MD#### ADHEA ####[facility] [address] [place] [address] Lab Director: Aguilar aBllard MD#### CDP, BHCG, TSH ####[address] [place] [address] Lab Director: Patricio Kelley MD Abs.Imm.Granulocyt e 0.04 k/uL Normal 0.00-0.30 [facility] Comment on above: Performed By: #### L H, DHES, GLYHGB, PROL, FSH, FT4 ####[facility] [address] [place], [place] [address])[phone] Director: Eliecer Barreto MD#### ADHEA ####[facility] [address] [place] [address] [id number] Lab Director: Aguilar Ballard MD#### BISHNU GIL, TSH ####[address] [place] [phone] Lab Director: Patricio Kelley MD Abs.Neutrophil (Seg) 6.39 k/uL Normal 1.50-8.10 [facility] Comment on above: Performed By: #### L H, DHES, GLYHGB, PROL, FSH, FT4 ####[address] [address])[phone] Director: Eliecer Barreto MD#### ADHEA ####[facility] [address] [place] [address] [id number] Lab Director: Aguilar Ballard MD#### MARIANN GILG, TSH ####[address] [place] [phone] Lab Director: Patricio Kelley MD Basophils/100 WBC (Bld) 0 % Normal 0-2 [facility] Comment on above: Performed By: #### L H, DHES, GLYHGB, PROL, FSH, FT4 ####[facility] [address] [place] [address] Lab Director: Eliecer Barreto MD#### ADHEA ####[facility] [address] [place] [address] [id number] Lab Director: Aguilar Ballard MD#### CDP BHCG, TSH ####[address] [place], [place] 5636583 Lab Director: Patricio Kelley MD Eosinophils (Bld) [#/Vol] 0.30 10*3/uL Normal 0.00-0.44 [facility] Comment on above: Performed By: #### L H, DHES, GLYHGB, PROL, FSH, FT4 ####[facility] [address] [place] [address] Lab Director: Eliecer Barreto MD#### ADHEA ####[facility] [address] [place] [address] [id number] Lab Director: Aguilar Ballard MD#### AMARI GILCG, TSH ####[address] [place] 3425783 Lab Director: Patricio Kelley MD Eosinophils/100 WBC (Bld) 3 % Normal 1-4 [facility] Comment on above: Performed By: #### L H, DHES, GLYHGB, PROL, FSH, FT4 ####[address] [address] Lab Director: Eliecer Barreto MD#### ADHEA ####[facility] [address] [place] [address] Lab Director: Aguilar Ballard MD#### CDP, BHCG, TSH ####[address] [place] [phone] Lab Director: Particio Kelley MD Erythrocyte distribution width (RBC) [Ratio] 12.7 % Normal 11.8-14.4 [facility] Comment on above: Performed By: #### L H, DHES, GLYHGB, PROL, FSH, FT4 ####[address] [address] Lab Director: Eliecer Barreto MD#### ADHEA ####[facility] [address] [place] [address] [id number] Lab Director: Aguilar Ballard MD#### CDP, BHCG, TSH ####[address] , [place] [phone] Lab Director: Patricio Kelley MD Hematocrit (Bld) [Volume fraction] 42.2 % Normal 36.3-47.1 [facility] Comment on above: Performed By: #### L H, DHES, GLYHGB, PROL, FSH, FT4 ####[address] [place] [address] Lab Director: Eliecer Barreto MD#### ADHEA ####[address] [id number] Lab Director: Aguilar Ballard MD#### CDP, BHCG, TSH ####[address] [place] [phone] Lab Director: Patricio Kelley MD Hemoglobin (Bld) [Mass/Vol] 14.5 g/dL Normal 11.9-15.1 [facility] Comment on above: Performed By: #### L H, DHES, GLYHGB, PROL, FSH, FT4 ####[facility] [address] [place] [address] Lab Director: Eliecer Barreto MD#### ADHEA ####[facility] [address] [place] [address] [id number] Lab Director: Aguilar Ballard MD#### CDP, BHCG, TSH ####[address] , [place] [phone] Lab Director: Patricio Kelley MD Immature granulocytes/100 WBC (Bld) 0 % Normal 0 [facility] Comment on above: Performed By: #### L H, DHES, GLYHGB, PROL, FSH, FT4 ####[facility] [address] [place] [address] Lab Director: Eliecer Barreto MD#### ADHEA ####[facility] [address] [place] [address] [phone] Lab Director: Aguilar Ballard MD#### AMARI GILCG, TSH ####[address] [place], [place] 9031783 Lab Director: Patricio Kelley MD Lymphocytes (Bld) [#/Vol] 2.20 10*3/uL Normal 1.10-3.70 [facility] Comment on above: Performed By: #### L H, DHES, GLYHGB, PROL, FSH, FT4 ####[address] [phone] Director: Eliecer Barreto MD#### ADHEA ####[facility] [address] [place] [address] [id number] Lab Director: Aguilar Ballard MD#### MARIANN GILG, TSH ####[address] [place], [place] 8706783 Lab Director: Patricio Kelley MD Lymphocytes/100 WBC (Bld) 23 % Low 24-43 [facility] Comment on above: Performed By: #### L H, DHES, GLYHGB, PROL, FSH, FT4 ####[facility] [address] [place] [address] Lab Director: Eliecer Barreto MD#### ADHEA ####[facility] [address] [place], [place] [phone] Lab Director: Aguilar Ballard MD#### LOUISE BHCG, TSH ####[address] [place] [phone] Lab Director: Patricio Kelley MD MCH (RBC) [Entitic mass] 27.6 pg Normal 25.2-33.5 [facility] Comment on above: Performed By: #### L H, DHES, GLYHGB, PROL, FSH, FT4 ####[facility] [address] [place], [place] [phone] Lab Director: Eliecer Barreto MD#### ADHEA ####[facility] [address] [place], [place] [phone] lab Director: Aguilar Ballard MD#### CDP, BHCG, TSH ####[address] [place] [phone] Lab Director: Patricio Kelley MD MCHC (RBC) [Mass/Vol] 34.4 g/dL Normal 28.4-34.8 [facility] Comment on above: Performed By: #### L H, DHES, GLYHGB, PROL, FSH, FT4 ####[facility] [address]ona[address]jt[address]3 [place] [address] Lab Director: Eliecer Barreto MD#### ADHEA ####[facility] [address] [place] [address] [phone] lab Director: Aguilar Ballard MD#### CDP, BHCG, TSH ####[address] [place] [phone] Lab Director: Patricio Kelley MD MCV (RBC) [Entitic vol] 80.4 fL Low 82.6-102.9 [facility] Comment on above: Performed By: #### L H, DHES, GLYHGB, PROL, FSH, FT4 ####[facility] [address] [place] [address] Lab Director: Eliecer Barreto MD#### ADHEA ####[facility] [address] [place] [address] Lab Director: Aguilar Ballard MD#### CDP, BHCG, TSH ####[address] [place], [place] 2500883 Lab Director: Patricio Kelley MD Monocytes (Bld) [#/Vol] 0.54 10*3/uL Normal 0.10-1.20 [facility] Comment on above: Performed By: #### L H, DHES, GLYHGB, PROL, FSH, FT4 ####[facility] X[address]3217 [place] [address] Lab Director: Eliecer Barreto MD#### ADHEA ####[facility] [address] [place], [place] [phone] Lab Director: Aguilar Ballard MD#### CDP, BHCG, TSH ####[address] [place] [phone] Lab Director: Patricio Kelley MD Monocytes/100 WBC (Bld) 6 % Normal 3-12 [facility] Comment on above: Performed By: #### L H, DHES, GLYHGB, PROL, FSH, FT4 ####[facility] [address]ocarwm3788 [place] [address] Lab Director: Eliecer Barreto MD#### ADHEA ####[facility] [address] [place] [address] Lab Director: Aguilar Ballard MD#### CDP, BHCG, TSH ####[address] [place], [place] [phone] Lab Director: Patricio Kelley MD Neutrophil (Seg) 68 % High 36-65 [facility] Comment on above: Performed By: #### L H, DHES, GLYHGB, PROL, FSH, FT4 ####[facility] [address] [place] [address] Lab Director: Eliecer Barreto MD#### ADHEA ####[facility] [address] [place], [place] [phone] Lab Director: Aguilar Ballard MD#### AMARI GILCG, TSH ####[address] [place], [place] [phone] Lab Director: Patricio Kelley MD NRBC Automated 0.0 per 100 WBC Normal 0.0 [facility] Comment on above: Performed By: #### L H, DHES, GLYHGB, PROL, FSH, FT4 ####[facility] [address] [place], [place] 5885708 Lab Director: Eliecer Barreto MD#### ADHEA ####[facility] [address] [place] [address] [id number] Lab Director: Aguilar Ballard MD#### BISHNU GIL, TSH ####[address] [place], [place] 5773083 Lab Director: Patricio Kelley MD Platelet mean volume (Bld) [Entitic vol] 11.5 fL Normal 8.1-13.5 [facility] Comment on above: Performed By: #### L H, DHES, GLYHGB, PROL, FSH, FT4 ####[address] [place] [address] Lab Director: Eliecer Barreto MD#### ADHEA ####[facility] [address] [place] [address] Lab Director: Aguilar Ballard MD#### LOUISE BHCG, TSH ####[address] [place], [place] 6740183 Lab Director: Patricio Kelley MD Platelets (Bld) [#/Vol] 246 10*3/uL Normal 138-453 [facility] Comment on above: Performed By: #### L H, DHES, GLYHGB, PROL, FSH, FT4 ####[facility] Em[address]fpfxuyms3406 [place] [address] Lab Director: Eliecer Barreto MD#### ADHEA ####[facility] [address] [place] [address] Lab Director: Aguilar Ballard MD#### CDP, BHCG, TSH ####[address] [place], [place] 0403183 Lab Director: Patricio Kelley MD RBC (Bld) [#/Vol] 5.25 10*6/uL High 3.95-5.11 [facility] Comment on above: Performed By: #### L H, DHES, GLYHGB, PROL, FSH, FT4 ####[address] [place] [address] Lab Director: Eliecer Barreto MD#### ADHEA ####[facility] [address] [place] [address] Lab Director: Aguilar Ballard MD#### AMARI GILCG, TSH ####[address] [place], [place] 2242983 Lab Director: Patricio Kelley MD WBC (Bld) [#/Vol] 9.5 10*3/uL Normal 3.5-11.3 [facility] Comment on above: Performed By: #### L H, DHES, GLYHGB, PROL, FSH, FT4 ####[address] [place] [address] Lab Director: Eliecer Barreto MD#### ADHEA ####[facility] [address] [place] [address] Lab Director: Aguilar Ballard MD#### CDP, BHCG, TSH ####[address] [place] [address] [facility] Director: Patricio Kelley MD DHEA Sulfateon 05-27-2024 DHEA Sulfate 417.0 ug/dL High 98.8-340 [facility] Comment on above: Performed By: #### C DP, CP #### [facility] [address] [place] [address] [employer] Tele[employer] Technician: Patricio Kelley MD DHEA-Sulfateon 05-27-2024 DHEA-S [Mass/Vol] 417.0 ug/dL High 98.8 - 340 ug/dL [facility] Interpretation and review of laboratory results Abnormal [facility] Follicle Stim. Hormon 2023 Follicle Stim. Horm 3.2 mIU/mL Normal [facility] Comment on above: Result Comment: Refe rence Range: Male: 1.5-12.4 Ovulating Female: Follicular Phase 3.5-12.5 Ovulation Phase 4.7-21.5 Luteal Phase 1.7-7.7 Postmenopausal Female: 25.8-134.8 Performed By: #### L H, DHES, GLYHGB, PROL, FSH, FT4 ####[facility] Q[address]xy[address] [place], [place] [id number] Lab Director: Eliecer Barreto MD#### ADHEA ####[facility] [address] [place] [address] [id number] Lab Director: Aguilar Ballard MD#### CDP, BHCG, TSH ####[facility] [place] [address] Lab Director: Patricio Kelley MD Follicle Stimulating Hormone on 05-27-2024 Follitropin Qn 3.2 m[IU]/mL mIU/mL [facility] Comment on above: Reference Range: Male: 1.5-12.4 Ovulating Female: Follicular Phase 3.5-12.5 Ovulation Phase 4.7-21.5 Luteal Phase 1.7-7.7 Postmenopausal Female: 25.8-134.8 HCG, Quanton 05-27-2024 HCG, Quant <1.0 Normal <5 [facility] Comment on above: Result Comment: Non-preg premeno <=5 Postmeno <=8 Male <=3 If HCG results do not concur with clinical observations, additional testing to confirm results is recommended. Performed By: #### L H, DHES, GLYHGB, PROL, FSH, FT4 ####[facility] [address] [place], [place] [phone] Lab Director: Eliecer Barreto MD#### ADHEA ####[facility] [address] [place], [place] [id number] Lab Director: Aguilar Ballard MD#### CDP, BHCG, TSH ####[facility] , [place] [phone] Lab Director: Patricio Kelley MD HCG, Quantitative, on 05-27-2024 HCG.beta subunit Qn NINF [facility] Comment on above: Non-preg premeno <=5 Postmeno <=8 Male <=3 If HCG results do not concur with clinical observations, additional testing to confirm results is recommended. Hemoglobin A1Con 05-27-2024 Average glucose Estimated from glycated hemoglobin (Bld) [Mass/Vol] 97 mg/dL [facility] Comment on above: The ADA and AACC rec ommend providing the estimated average glucose result to permit better patient understanding of their HBA1c result. HbA1c (Bld) [Mass fraction] 5.0 % 4.0 - 6.0 % [facility] Glucose [Mass/Vol] 97 mg/dL Normal [facility] Comment on above: Result Comment: The ADA and AACC recommend providing the estimated average glucose result to permit better patient understanding of their HBA1c result. Performed By: #### L H, DHES, GLYHGB, PROL, FSH, FT4 ####[facility] [address] [place] [address] Lab Director: Eliecer Barreto MD#### ADHEA ####[facility] [address] [place] [address] lab Director: Aguilar Ballard MD#### BISHNU GIL, TSH ####[address] [place] [address] lab Director: Patricio Kelley MD HbA1c (Bld) [Mass fraction] 5.0 % Normal 4.0-6.0 [facility] Comment on above: Performed By: #### L H, DHES, GLYHGB, PROL, FSH, FT4 ####[facility] [address] [place], [place] 2883808 lab Director: Eliecer Barreto MD#### ADHEA ####[facility] [address] [place] [address] lab Director: Aguilar Ballard MD#### BISHNU GIL, TSH ####[address] [place] [address] lab Director: Patricio Kelley MD Luteinizing Hormoneon 2023 Interpretation and review of laboratory results Abnormal [facility] Lutropin Qn 11.0 m[IU]/mL [facility] Comment on above: Reference Range: Male: 1.7-8.6 Ovulating Female: Follicular Phase 2.4-12.6 Ovulation Phase 14.0-95.6 Luteal Phase 1.0-11.4 Postmenopausal Female: 7.7-58.5 Luteinizing Hormone 11.0 mIU/mL [facility] 1.7-8.6 [facility] Comment on above: Result Comment: Refe rence Range: Male: 1.7-8.6 Ovulating Female: Follicular Phase 2.4-12.6 Ovulation Phase 14.0-95.6 Luteal Phase 1.0-11.4 Postmenopausal Female: 7.7-58.5 Performed By: #### L H, DHES, GLYHGB, PROL, FSH, FT4 ####[facility] [address] [place], [place] [id number] Lab Director: Eliecer Barreto MD#### ADHEA ####[facility] [address] [place], [place] [id number] Lab Director: Aguilar Ballard MD#### BISHNU GIL, TSH ####[address] [place] [address] Lab Director: Patricio Kelley MD No Panel Informationon 05-27 [facility] Prolactinon 05-27-2024 Interpretation and review of laboratory results Abnormal [facility] Prolactin [Mass/Vol] 37.70 ng/mL High 4.79 - 23.3 ng/mL [facility] Comment on above: The presence of macr oprolactin may cause interference in female patients with various endocrinological diseases or during . [facility] Prolactin 37.70 ng/mL High 4.79-23.3 [facility] Comment on above: Result Comment: The presence of macroprolactin may cause interference in female patients with various endocrinological diseases or during . Performed By: #### L H, DHES, GLYHGB, PROL, FSH, FT4 ####[facility] [address] [place], [place] [id number] Lab Director: Eliecer Barreto MD#### ADHEA ####[facility] [address] [place] [address] Lab Director: Aguilar Ballard MD#### BISHNU GIL, TSH ####[address] [place] [address] Lab Director: Patricio Kelley MD T4, Freeon 05-27-2024 Free T4 [Mass/Vol] 1.5 ng/dL 0.92 - 1. 68 ng/dL [facility] TSHon 05-27-2024 TSH Qn 1.42 m[IU]/L [facility] Thyroid Stim. Horm.on 2023 Thyroid Stim. Horm. 1.42 uIU/mL Normal 0.30-5.00 [facility] Comment on above: Performed By: #### L H, DHES, GLYHGB, PROL, FSH, FT4 ####[facility] [id number] [place] [address] Lab Director: Eliecer Barreto MD#### ADHEA ####[facility] [id number] [place] [address] [id number] Lab Director: Aguilar Ballard MD#### LOUISE, BHCG, TSH ####[address] [place], [place] [id number] lab Director: Patricio Kelley MD Thyroxine, Freeon 05-27-2024 Thyroxine, Free 1.5 ng/dL Normal 0.92-1.68 [facility] Comment on above: Performed By: #### L H, DHES, GLYHGB, PROL, FSH, FT4 ####[facility] [id number] [place] [address] Lab Director: Eliecer Barreto MD#### ADHEA ####[facility] [address] [place] [address] [id number] lab Director: Aguilar Ballard MD#### LOUISE, BHCG, TSH ####[address] [place], [place] [id number] Lab Director: Patricio Kelley MD Microscopic Urinalysison Epithelial Cells UA 0 TO 2 [facility] RBC clumps Auto (Urine sed) [#/Area] GREATER THAN 100 [facility] WBC, UA None [facility] , urineon 3 Beta HCG ( test) Ql (U) Negative NEGATIVE [facility] Comment on above: Specimens with hCG l evels near the threshold of the test (25 mIU/mL) may give a negative or indeterminate result. In such cases, another test should be performed with a new specimen in 48-72 hours. If early is suspected clinically in this setting, correlation with quantitative serum b-hCG level is suggested. [employer] has confirmed the use of plasma for this test. This has not been cleared or approved by the U.S. Food and Drug Administration. The FDA has determined that such clearance is not necessary. [facility] Urinalysison 01-19-2023 Bilirubin Urine Negative NEGATIVE [facility] Sensee Color, UA Yellow Yellow [facility] Glucose Auto test strip (U) [Mass/Vol] Negative NEGATIVE [facility] Interpretation and review of laboratory results Abnormal [facility] Ketones (U) [Mass/Vol] Negative NEGATIVE [facility] Leukocyte esterase Auto test strip Ql (U) Negative NEGATIVE [facility] Nitrite Auto test strip Ql (U) Negative NEGATIVE [facility] Protein (U) [Mass/Vol] 6.0 mg/dL 5.0 - 9.0 [facility] Protein (U) [Mass/Vol] Negative NEGATIVE [facility] Specific [place], UA High 1.010 - 1.020 [facility] Turbidity UA Clear Clear [facility] Urine Hgb 3+ Abnormal NEGATIVE [facility] Urobilinogen, Urine Normal Normal [facility] Wet Prep, Genitalon 01-20-20 Interpretation and review of laboratory results Abnormal [facility] Microorganism or agent identified Nom (Unsp spec) NO CLUE CELLS SEEN [facility] Microorganism or agent identified Nom (Unsp spec) NO YEAST OBSERVED [facility] Microorganism or agent identified Nom (Unsp spec) TRICHOMONAS Abnormal [facility] Specimen Description .VAGINA [facility] CNPNon 11-29-2021 CNPN Telephone (HEMASA) ----- EDGAR ORTIZ ([id number]) 1995 F Date Time Provider Department 11/29/21 [...] Fully Assessed Reason for Visit: Medication Question [4298] Prescriptions as of 11/29/2021 - Desmopressin Acetate (STIMATE) 150 mcg/spray (0.1 mL) spry Use 1 [place] in the nose as needed. - Desmopressin Acetate (STIMATE) 150 mcg/spray spry Use 1 [place] in the nose as needed. - Desmopressin Acetate (STIMATE) 150 mcg/spray [place] Use 1 [place] in the nose once daily as needed. [...] Encounter Status:Closed by ALBINO KILGORE on 11/29/21 [facility] COVID-19, MOLECULARon 05-13- 2021 SARS-CoV-2 (COVID-19) Ab IA Ql Not detected Normal Not Detected [facility] Comment on above: Result [...] at the following links: For Healthcare Providers: https://www.fda.gov/media/370884/download For Patients: https://www.fda.gov/media/060560/download , Urineon 0 Beta HCG ( test) Ql (U) Negative NEGATIVE [place], [place] Comment on above: Specimens with hCG l evels near the threshold of the test (25 mIU/mL) may give a negative or indeterminate result. In such cases, another test should be performed with a new specimen in 48-72 hours. If early is suspected clinically in this setting, correlation with quantitative serum b-hCG level is suggested. [employer] has confirmed the use of plasma for this test. This has not been cleared or approved by the U.S. Food and Drug Administration. The FDA has determined that such clearance is not necessary. Urinalysis with Microscopico n 05-16-2020 Amorphous, UA NOT REPORTED None [facility] [place], [place] Bacteria, UA NOT REPORTED None [facility], [place] Bilirubin Urine Negative NEGATIVE [facility] [place] Casts UA NOT REPORTED /LPF [facility], [place] Color, UA YELLOW YELLOW [facility], [place] Crystals, UA NOT REPORTED None /HPF [facility], [place] Epithelial Cells UA 0 TO 2 [facility], [place] Glucose, Ur Negative NEGATIVE [facility], [place] Interpretation and review of laboratory results Abnormal [facility], [place] Ketones Ql (U) Negative NEGATIVE [facility] [place] Leukocyte esterase Test strip Ql (U) Negative NEGATIVE [facility], [place] Mucus, UA NOT REPORTED None [facility], [place] Nitrite, Urine Negative NEGATIVE [facility], [place] Other Observations UA NOT REPORTED NOT REQ. [place], [place] pH, UA 7.0 [place], [place] Protein (U) [Mass/Vol] Negative NEGATIVE [place] RBC (U) [#/Vol] None [facility] [place] Renal Epithelial, UA NOT REPORTED 0 /HPF [place] Specific [place], UA <1.005 [place], [place] Trichomonas, UA NOT REPORTED None [facility] [place] Turbidity UA CLEAR CLEAR [place], [place] Urinalysis Comments NOT REPORTED [place] Urine Hgb Negative NEGATIVE [place] Urobilinogen, Urine Normal Normal [place] WBC, UA 0 TO 2 [place] Yeast, UA NOT REPORTED None [place] - [place] Otheron 12-01-2019 Evidence of mild bronchitis or atypical infection in the lingula. Workstation ID: [id number] [facility] EXAMINATION: XR CHES T AP/PA AND [...] No pleural effusion or pneumothorax. [facility], Rad In Fu ji Speechq - 12/01/2019 [...] infection in the lingula. Workstation ID: [id number] [facility] POC INFLUENZA A/B MOLECULARo n 10-18-2019 FLUAV Ag Ql (Nph) Negative Negative [facility] lt FLUBV Ag Ql (Nph) Positive Abnormal Negative [facility] Interpretation and review of laboratory results Abnormal [facility] Vital Signs Date Time Vital Sign Value Performing Clinician Faci lity 05-24-2025 13:50-0400 Body mass index (BMI) [Ratio] 37.57 kg/m2 Jung Ama DO Work Phone: [facility] 05-24-2025 13:50-0400 Body weight 93.17 kg Jung Ama DO Work Phone: [facility] 05-24-2025 13:50-0400 Diastolic blood pressure 74 mm[Hg] Jung Ama DO Work Phone: [facility] 05-24-2025 13:50-0400 Systolic blood pressure 120 mm[Hg] Jung Ama DO Work Phone: [facility] 05-10-2025 14:13-0400 Body mass index (BMI) [Ratio] 36.95 kg/m2 Leyla Matt PA Work Phone: [facility] 05-10-2025 14:13-0400 Body weight 91.63 kg Leyla Shaka PA Work Phone: [facility] 05-10-2025 14:13-0400 Diastolic blood pressure 74 mm[Hg] Leyla Shaka PA Work Phone: [facility] 05-10-2025 14:13-0400 Systolic blood pressure 120 mm[Hg] Leyla Shaka PA Work Phone: [facility] 04-19-2025 11:45-0400 Body mass index (BMI) [Ratio] 36.58 kg/m2 Leyla Logan PA Work Phone: [facility] 04-19-2025 11:45-0400 Body weight 90.72 kg Leyla Shaka PA Work Phone: [facility] 04-19-2025 11:45-0400 Diastolic blood pressure 74 mm[Hg] Leyla Shaka PA Work Phone: [facility] 04-19-2025 11:45-0400 Systolic blood pressure 122 mm[Hg] Leyla aMtt PA Work Phone: [facility] 03-14-2025 13:41-0400 Body mass index (BMI) [Ratio] 36.03 kg/m2 Jung Ama DO Work Phone: [facility] 03-14-2025 13:41-0400 Body weight 89.36 kg Jung Ama DO Work Phone: [facility] 03-14-2025 13:41-0400 Diastolic blood pressure 72 mm[Hg] Jung Ama DO Work Phone: [facility] 03-14-2025 13:41-0400 Systolic blood pressure 114 mm[Hg] Jung Ama DO Work Phone: [facility] 02-24-2025 22:25-0400 Body mass index (BMI) [Ratio] 36.21 kg/m2 Fior [facility]endez DO [facility] 02-24-2025 22:25-0400 Body temperature 97.9 [degF] Fior Mendez DO [facility] 02-24-2025 22:25-0400 Body weight 89.81 kg Fior Mendez DO [facility] 02-24-2025 22:25-0400 Diastolic blood pressure 90 mm[Hg] Fior Mendez DO [facility] 02-24-2025 22:25-0400 Heart rate 79 /min Fior Mendez DO Work Phone[facility] 02-24-2025 22:25-0400 Respiratory rate 17 /min Fior Mendez DO Work Phone[facility] 02-24-2025 22:25-0400 SaO2% (BldA) [Mass fraction] 99 % Fior Mendez DO Work Phone: [facility] 02-24-2025 22:25-0400 Systolic blood pressure 134 mm[Hg] Fior Mendez DO Work Phone: [facility] 02-09-2025 17:14-0400 Body mass index (BMI) [Ratio] 35.45 kg/m2 Brian Shore CUFFING MACHINE OPERATOR Work Phone: [facility] 02-09-2025 17:14-0400 Body weight 87.91 kg Brina Mone CUFFING MACHINE OPERATOR Work Phone: [facility] 02-09-2025 17:14-0400 Diastolic blood pressure 70 mm[Hg] Brian Mone CUFFING MACHINE OPERATOR Work Phone: [facility] 02-09-2025 17:14-0400 Systolic blood pressure 110 mm[Hg] Brian Mone CUFFING MACHINE OPERATOR Work Phone: [facility] 01-06-2025 10:06-0400 Body mass index (BMI) [Ratio] 34.9 kg/m2 Jung Ama DO Work Phone: [facility] 01-06-2025 10:06-0400 Body weight 86.55 kg Jung Ama DO Work Phone: [facility] 01-06-2025 10:06-0400 Diastolic blood pressure 74 mm[Hg] Jung Ama DO Work Phone: [facility] 01-06-2025 10:06-0400 Systolic blood pressure 116 mm[Hg] Jung Ama DO Work Phone: [facility] 12-10-2024 10:31-0500 Body mass index (BMI) [Ratio] 34.5 kg/m2 Noms Nurse [facility] 12-10-2024 10:31-0500 Body weight 85.55 kg Nom Nurse [facility] 12-10-2024 10:31-0500 Diastolic blood pressure 70 mm[Hg] Noms Nurse [facility] 12-10-2024 10:31-0500 Systolic blood pressure 120 mm[Hg] Noms Nurse [facility] 06-02-2024 13:03-0400 Body height 157.5 cm Jung Ama DO Work Phone: [facility] 06-02-2024 13:03-0400 Body mass index (BMI) [Ratio] 36.03 kg/m2 Jung Ama DO Work Phone: [facility] 06-02-2024 13:03-0400 Body weight 89.36 kg Jung Ama DO Work Phone: [facility] 06-02-2024 13:03-0400 Diastolic blood pressure 72 mm[Hg] Jung Ama DO Work Phone: [facility] 06-02-2024 13:03-0400 Systolic blood pressure 118 mm[Hg] Jung Ama DO Work Phone: [facility] 01-19-2023 21:23-0400 Body mass index (BMI) [Ratio] 33.84 kg/m2 Fior Mendez DO [facility] Phone[facility] 01-19-2023 21:23-0400 Body temperature 97 [degF] Fior Mendez DO Work Phone: [facility] 01-19-2023 21:23-0400 Body weight 83.92 kg Fior Mendez DO Work Phone: [facility] 01-19-2023 21:23-0400 Diastolic blood pressure 95 mm[Hg] Fior Mendez DO Work Phone: [facility] 01-19-2023 21:23-0400 Heart rate 87 /min Fior Mendez DO Work Phone: [employer] 01-19-2023 21:23-0400 Respiratory rate 16 /min Fior Mendez DO Work Phone: [facility] 01-19-2023 21:23-0400 SaO2% (BldA) [Mass fraction] 98 % Fior Mendez DO Work Phone: [facility] 01-19-2023 21:23-0400 Systolic blood pressure 144 mm[Hg] Fior Mendez DO Work Phone: [facility] 09-30-2020 12:52-0500 BP Diastolic 84 mm[Hg] [facility] 09-30-2020 12:52-0500 BP Systolic 131 mm[Hg] [facility] 09-30-2020 12:48-0500 BMI (Body Mass Index) 38.19 kg/m2 [facility] 09-30-2020 12:48-0500 Body weight 94.71 kg [facility] 09-30-2020 12:48-0500 Height 157.5 cm [facility] 09-30-2020 12:48-0500 Pulse (Heart Rate) 72 /min [facility] 09-30-2020 12:48-0500 Pulse Oximetry 98 % [facility] 09-30-2020 12:48-0500 Respiratory Rate 16 /min [facility] 08-11-2020 13:14-0400 Body Temperature 98.2 [degF] [place], [place] 08-11-2020 13:14-0400 BP Diastolic 99 mm[Hg] [place], [place] 08-11-2020 13:14-0400 BP Systolic 132 mm[Hg] [place] 08-11-2020 13:14-0400 Pulse (Heart Rate) 66 /min [place] 08-11-2020 13:14-0400 Pulse Oximetry 100 % [place] 08-11-2020 13:14-0400 Respiratory Rate 16 /min [place] 03-23-2020 20:39-0400 BMI (Body Mass Index) 40.79 kg/m2 Arielle Ventura [facility] 03-23-2020 20:39-0400 Body Temperature 98.01 [degF] Arielle Ventura [facility] 03-23-2020 20:39-0400 Body weight 101.15 kg Arielle Ventura [facility] 03-23-2020 20:39-0400 BP Diastolic 78 mm[Hg] Arielle Ventura [facility] 03-23-2020 20:39-0400 BP Systolic 116 mm[Hg] Arielle Ventura [facility] 03-23-2020 20:39-0400 Height 157.5 cm Arielle Ventura [facility] 03-23-2020 20:39-0400 Pulse (Heart Rate) 80 /min Arielle Ventura [facility] 03-23-2020 20:39-0400 Pulse Oximetry 98 % Arielle Ventura [facility] 03-23-2020 20:39-0400 Respiratory Rate 16 /min Arielle Ventura [facility] 12-01-2019 14:38-0500 BMI (Body Mass Index) 40.16 kg/m2 [facility] 12-01-2019 14:38-0500 Body Temperature 97 [degF] [facility] 12-01-2019 14:38-0500 Body weight 100.25 kg [facility] 12-01-2019 14:38-0500 BP Diastolic 85 mm[Hg] [facility] 12-01-2019 14:38-0500 BP Systolic 129 mm[Hg] [facility]el [facility] 12-01-2019 14:38-0500 Pulse (Heart Rate) 76 /min Gloria Fatima [facility] 12-01-2019 14:38-0500 Pulse Oximetry 97 % [facility] 12-01-2019 14:38-0500 Respiratory Rate 16 /min [facility] 10-18-2019 11:13-0500 BMI (Body Mass Index) 38.85 kg/m2 Arielle Ventura [facility] 10-18-2019 11:13-0500 Body Temperature 98.29 [degF] Arielle Ventura [facility] 10-18-2019 11:13-0500 Body weight 96.98 kg Arielle Ventura [facility] 10-18-2019 11:13-0500 BP Diastolic 80 mm[Hg] Arielle Ventura [facility] 10-18-2019 11:13-0500 BP Systolic 128 mm[Hg] Arielle Ventura [facility] 10-18-2019 11:13-0500 Pulse (Heart Rate) 102 /min Arielle Ventura [facility] 10-18-2019 11:13-0500 Pulse Oximetry 99 % Arielle Ventura [facility] 10-18-2019 11:13-0500 Respiratory Rate 17 /min Arielle Ventura [facility] 07-06-2019 12:59-0400 BMI (Body Mass Index) 38.12 kg/m2 Bertha Snow [facility] 07-06-2019 12:59-0400 Body Temperature 100.29 [degF] Bertha [facility] 07-06-2019 12:59-0400 Body weight 95.17 kg Bertha [facility] 07-06-2019 12:59-0400 BP Diastolic 79 mm[Hg] [facility] 07-06-2019 12:59-0400 BP Systolic 138 mm[Hg] Bertha [facility] 07-06-2019 12:59-0400 Height 158 cm Bertha [facility] 07-06-2019 12:59-0400 Pulse (Heart Rate) 80 /min Bertha [facility] 07-06-2019 12:59-0400 Pulse Oximetry 98 % Bertha [facility] 07-06-2019 12:59-0400 Respiratory Rate 16 /min Bertha [facility] 06-21-2019 20:08-0400 BP Diastolic 107 mm[Hg] [facility] 06-21-2019 20:08-0400 BP Systolic 147 mm[Hg] [facility] 06-21-2019 19:24-0400 BMI (Body Mass Index) 38.23 kg/m2 [facility] 06-21-2019 19:24-0400 Body Temperature 98.49 [degF] [facility] 06-21-2019 19:24-0400 Body weight 94.8 kg [facility] 06-21-2019 19:24-0400 Pulse (Heart Rate) 66 /min [facility] 06-21-2019 19:24-0400 Pulse Oximetry 100 % [facility] 06-21-2019 19:24-0400 Respiratory Rate 14 /min [facility] Encounters Encounter Date Encounter Type Care Provider Facility Start: 06-04-2025 End: 06-04-2025 ambulatory KAYLEE BROWN [facility] Start: 06-04-2025 End: 06-04-2025 Subsequent hospital visit by physician Joi Lewis MD Work Phone: [facility] Comment on above: High-risk in third trimester; 35 weeks gestation of Start: 06-03-2025 End: 06-06-2025 Clinisync Result Encounter Generic External Data Provider [facility] External Department Unsolicited Start: 06-03-2025 End: 06-06-2025 Clinisync Result Encounter Generic External Data Provider [facility] External Department Unsolicited Start: 05-24-2025 End: 05-24-2025 Bamboo flowsheet Jung Ama DO Work Phone: [facility] Start: 05-24-2025 End: 05-24-2025 Bamboo flowsheet Jung Ama DO Work Phone: [facility] Start: 05-24-2025 End: 05-24-2025 Clinisync Result Encounter Generic External Data Provider [facility] External Department Unsolicited Start: 05-24-2025 End: 05-24-2025 ambulatory JUNG AMA Not Available Start: 05-24-2025 End: 05-24-2025 Office outpatient visit 15 minutes Jung Ama DO Work Phone: [facility] Comment on above: Third trimester preg star ([facility]-H[facility]); 33 weeks gestation of ([facility]); Cold sore; Von Willebrand disease (HCC); Aortic valve stenosis, etiology of cardiac valve disease unspecified Start: 05-18-2025 End: 05-18-2025 Clinisync Result Encounter Generic External Data Provider [facility] External Department Unsolicited Start: 05-18-2025 End: 05-18-2025 Clinisync Result Encounter Generic External Data Provider [facility] External Department Unsolicited Start: 05-18-2025 End: 05-18-2025 ambulatory [facility] LEWIS [facility] Start: 05-18-2025 End: 05-18-2025 Subsequent hospital visit by physician [facility] Schedule [facility] Comment on above: High-risk in third trimester; Secondary hypertension Start: 05-10-2025 End: 05-10-2025 Bamboo flowsheet Leyla JURADO Work Phone: [facility] Start: 05-10-2025 End: 05-10-2025 Bamboo flowsheet Leyla JURADO Work Phone: [facility] Start: 05-10-2025 End: 05-10-2025 Clinisync Result Encounter Generic External Data Provider [facility] External Department Unsolicited Start: 05-10-2025 End: 05-10-2025 Office outpatient visit 15 minutes Leyla JURADO Work Phone: [facility] Comment on above: Third trimester preg star ([facility]); 31 weeks gestation of ([facility]) Start: 05-10-2025 End: 05-10-2025 ambulatory LEYLA MATT Not Available Start: 05-03-2025 End: 05-03-2025 Clinisync Result Encounter Generic External Data Provider [facility] External Department Unsolicited Start: 05-03-2025 End: 05-03-2025 Clinisync Result Encounter Generic External Data Provider [facility] External Department Unsolicited Start: 05-02-2025 End: 05-02-2025 ambulatory BLAYNE [facility] Start: 04-22-2025 End: 04-22-2025 Clinisync Result [...] on above: 28 weeks gestation o f ([facility]); Von Willebrand disease (HCC); Aortic valve stenosis, etiology of cardiac valve disease unspecified Start: 03-30-2025 End: 03-30-[address] [facility] Start: 03-22-2025 End: 03-22-2025 Clinisync Result Encounter Jung Morrowo DO Work Phone: [facility] External Department Unsolicited Start: 03-22-2025 End: 03-22-2025 Clinisync Result Encounter Jung Morrowo DO Work Phone: [facility] External Department Unsolicited Start: 03-22-2025 End: 03-22-2025 [facility] Start: 03-22-2025 End: 03-22-2025 Subsequent hospital visit by physician Joi Lewis MD Work Phone[facility] Start: 03-19-2025 End: 03-19-2025 ambulatory [facility] Start: 03-19-2025 End: 03-19-2025 Subsequent hospital visit by physician Joi Lewis MD Work Phone: [facility] Start: 03-14-2025 End: 03-14-2025 Office outpatient visit 15 minutes Jung Morrowo DO Work Phone: [facility] Comment on above: Second trimester pre gnancy; 23 weeks gestation of ; Diabetes mellitus screening Start: 03-14-2025 End: 03-14-2025 ambulatory JUNG MORROWO Not Available Start: 03-09-2025 End: 03-09-2025 [facility] Start: 02-24-2025 End: 02-25-2025 Emergency department patient visit Fior Armand Mendez DO Work Phone: [facility] Department Comment on above: Headache in pregnanc y, antepartum, second trimester (Primary Dx) Start: 02-09-2025 End: 02-09-2025 ambulatory BRIAN SHORE Not Available Start: 02-09-2025 End: 02-09-2025 Office outpatient visit 15 minutes Brian Shore CUFFING MACHINE OPERATOR Work Phone: [facility] Comment on above: 19 weeks gestation o f ; Second trimester ; Well woman exam with routine gynecological exam; Screening, , for anatomic survey; Vaginal discharge; Exposure to STD Start: 02-09-2025 End: 02-09-2025 Patient encounter procedure Brian Shore NP Work Phone: [facility] Start: 02-09-2025 End: 02-09-2025 Bamboo flowsheet Brian Shore CUFFING MACHINE OPERATOR Work Phone: [facility] Start: 02-09-2025 End: 02-14-2025 Bamboo flowsheet Brian Shore CUFFING MACHINE OPERATOR Work Phone: [facility] Start: 02-09-2025 End: 02-14-2025 Clinisync Result Encounter Generic External Data Provider [facility] External Department Unsolicited Start: 02-09-2025 End: 02-11-2025 External Result Encounter Brian Shore NP Work Phone: [facility] External Department Unsolicited Start: 01-17-2025 End: 01-17-2025 Telephone encounter Yessica Richardson LPN [facility]- [facility] at [facility] Start: 01-14-2025 End: 01-14-[address] [facility] Start: 01-06-2025 End: 01-06-2025 Office outpatient visit 15 minutes Jung Serrato DO Work Phone: [facility] Comment on above: Second trimester pre gnancy; 14 weeks gestation of ; Von Willebrand disease ([facility]/HCC); Aortic stenosis due to bicuspid aortic valve Start: 01-06-2025 End: 01-06-2025 ambulatory JUNG SERRATO Not Available Start: 12-27-2024 End: 12-27-2024 ambulatory [facility] Start: 12-10-2024 End: 12-10-2024 Clinisync Result Encounter [...] Not Available Start: 06-09-2024 End: 06-11-2024 [facility] Start: 06-02-2024 End: 06-02-2024 Bamboo flowsheet Jung Ama DO Work Phone: [facility] Start: 06-02-2024 End: 06-02-2024 Bamboo flowsheet Jung Ama DO Work Phone: [facility] Start: 06-02-2024 End: 06-02-2024 Office outpatient visit 15 minutes Jung Ama DO Work Phone: [facility] Comment on above: Preop examination; PCOS (polycystic ovarian syndrome); Dyspareunia in female; Abnormal uterine bleeding (AUB); Hormone imbalance; Elevated prolactin level; Pelvic pain in female Start: 06-02-2024 End: 06-02-2024 Preprocedural examination done Jung Ama DO Work Phone: [facility] Start: 06-02-2024 End: 06-02-2024 ambulatory JUNG MORROWO Not Available Start: 05-28-2024 End: 05-30-2024 [facility] Start: 05-28-2024 End: 05-30-2024 Subsequent hospital visit by physician [facility] Ultrasound Room [facility] Comment on above: Dyspareunia, female; Abnormal uterine bleeding Start: 05-27-2024 End: 05-27-2024 ambulatory [facility] Start: 05-27-2024 End: 05-27-2024 Subsequent hospital visit by physician Joi Lewis MD Work Phone: [facility] Laboratory Start: 01-19-2023 End: 01-19-2023 Emergency department patient visit Fior Mendez DO Work Phone: [facility] ED Comment on above: Vaginal itching (Liz driss Dx) Start: 02-22-2021 End: 02-22-2021 ambulatory [facility] Start: 12-13-2020 End: 12-13-2020 Orders Only Anne Hyltonana Work Phone: [facility] Start: 09-30-2020 End: 09-30-2020 ambulatory [facility] Start: 09-30-2020 End: 09-30-2020 Office outpatient visit 15 minutes Veronica Sanford Blood Work Phone: [facility] Comment on above: Impetigo (Primary Dx ) Start: 08-11-2020 End: 08-11-2020 Emergency department patient visit Shannan Solitario Work Phone: [facility] ED Comment on above: Acute rhinitis (Prim lisbet Dx) Start: 05-16-2020 End: 05-16-2020 Subsequent hospital visit by physician Joi ANNA Laboratory Start: 03-23-2020 End: 03-23-2020 ambulatory [facility] Start: 03-23-2020 End: 03-23-2020 Office outpatient visit 15 minutes Arielle Ventura Work Phone: [facility] Comment on above: Post-nasal drip (Liz driss Dx); Cough Start: 01-21-2020 End: 01-21-2020 Documentation procedure Bertha Merchant Work Phone: [facility] [place] Start: 12-01-2019 End: 12-01-2019 Subsequent hospital visit by physician Gloria Fatima Work Phone: [facility] Comment on above: Bronchitis Start: 12-01-2019 End: 12-01-2019 Office outpatient visit 15 minutes Gloria Fatima Work Phone: [facility] Comment on above: Lower respiratory tr act infection (Primary Dx) Start: 10-18-2019 End: 10-18-2019 Office outpatient visit 15 minutes Arielle Jeramy Rhoadesruddy Work Phone: [facility] Comment on above: Influenza B (Primary Dx) Start: 07-06-2019 End: 07-06-2019 Office outpatient visit 15 minutes Bertha Irving Work Phone: [facility] Comment on above: Bronchitis (Primary Dx); Dermatitis Start: 06-21-2019 End: 06-21-2019 Office outpatient new 30 minutes Sun Min Mehul Work Phone: [facility] Comment on above: Sunburn (Primary Dx) Start: 10-02-2018 Patient encounter procedure ANDREARuddy [facility] Ambulatory Procedures Date Procedure Procedure Detail Performing Clinician Start: 06-03-2025 Cul prsmptv pthgnc o rganism scrn w/colony estimj Kaylee Brown DO Work Phone: Start: 06-03-2025 MHPT RULE OUT GRP.B STREP Generic External Data Provider Start: 05-24-2025 US OB BPP W NON-STRESS Generic External Data Provider Start: 05-24-2025 Urnls dip stick/tabl et rgnt non-auto w/o micrscp Jung Serrato DO Work Phone: Start: 05-18-2025 End: 05-18-2025 Comprehensive metabolic panel Emma Nava DO Work Phone: Start: 05-18-2025 MHPT CBC WITH DIFF Gene bjorn External Data Provider Start: 05-10-2025 US OB BPP W NON-STRESS Generic External [...] stick/tabl et rgnt non-auto w/o micrscp Jung Ama DO Work Phone: Start: 02-24-2025 End: 02-24-2025 Assay of magnesium Fior Acuna Mendez DO Work Phone: Start: 02-24-2025 Urinalysis microscopic only Fior Armand Mendez DO Work Phone: Start: 02-24-2025 Urnls dip stick/tabl et rgnt auto w/o microscopy Fior Armand Mendez DO Work Phone: Start: 02-09-2025 RECURRENT VAGINITIS (HTRX) Brian Shore NP Work Phone: Start: 02-09-2025 Urnls dip stick/tabl et rgnt non-auto w/o micrscp Brian Shore NP Work Phone: Start: 02-09-2025 IGP,APTIMA HPV,AGE GDLN Brian Shore CUFFING MACHINE OPERATOR Work Phone: Start: 02-09-2025 Microscopic observat ion [Identifier] in Cervix by Cyto stain Jung Ama DO Work Phone: Start: 12-10-2024 ALL CBC WITH AUTO DIFF Jung Ama DO Work Phone: Start: 12-10-2024 Urnls dip stick/tabl et rgnt non-auto w/o micrscp Jung Ama DO Work Phone: Start: 05-28-2024 Us pelvic [...] Urine test visual color cmprsn meths Blayne Bienvenido Hdez Work Phone: Start: 05-16-2020 Urnls dip stick/tabl et reagent auto microscopy Blayne Bienvenido Lemuel Work Phone: Start: 12-01-2019 Standard chest X-ray Elroy Fatima Work Phone: Start: 10-18-2019 Influenzavirus antib heena assay Arielle Ventura Work Phone: Start: 08-18-2018 Microscopic observat ion [Identifier] in Cervix by Cyto stain Andra Carver Plan of Treatment Date Care Activity Detail Author Start: 06-03-2035 DTaP/Tdap/Td vaccine (8 - Td or Tdap) DTaP/Tdap/Td vaccine (8 - Td or Tdap) [facility] Start: 02-10-2028 Screening for malign ant neoplasm of cervix [facility] Start: 06-03-2026 Depression Screen Depression Screen [facility] Start: 01-14-2026 Adult BMI Screening Adult BMI Screen Critical access hospital Start: 06-28-2025 End: 06-28-2025 Patient encounter procedure 06/28/2025 4:00 PM EDT Routine [facility] [place] [address] [place] [phone] Jessika Parrish DO [address] [place], [place] [id number] 1 wk elvira/nst [facility] [place] Comment on above: 1 wk elvira/nst Start: 06-21-2025 End: 06-21-2025 Patient encounter procedure 06/21/2025 4:00 PM EDT Routine [facility] [place] [place] [address] [place] [phone] Jessika Parrish DO [address] [place] [address] 1 wk [facility]/n[facility] [place] Comment on above: 1 wk elvira/nst Start: 06-17-2025 End: 06-17-2025 Patient encounter procedure 06/17/2025 9:45 AM EDT Routine [facility] [address] [phone] [facility] Start: 06-14-2025 End: 06-14-2025 Patient encounter procedure 06/14/2025 4:00 PM EDT Routine [facility] Barbara [address] [place] [phone] Jessika Parrish DO [address] [place] [address] 1 wk ELVIRA/ nst [facility] Barbara Comment on above: 1 wk ELVIRA/ nst Start: 06-13-2025 Influenza vaccination [facility] Start: 06-13-2025 Respiratory Syncytia l Virus (RSV) or age 60 yrs+ (1 - Risk 1-dose series) Respiratory Syncytial Virus (RSV) or age 60 yrs+ (1 - Risk 1-dose series) [facility] Start: 06-10-2025 End: 06-10-2025 Patient encounter procedure 06/10/2025 9:45 AM EDT Routine [facility] [address] [phone] [facility] Start: 06-07-2025 End: 06-07-2025 Patient encounter procedure 06/07/2025 4:00 PM EDT Routine [facility] [place] [employer] Barbara [address] [place] [phone] Jessika Parrish DO [address] [place] [phone] 1 wk [facility] [place] Comment on above: 1 wk ELVIRA/ nst Start: 05-25-2025 End: 05-25-2025 Patient encounter procedure 05/25/2025 11:30 AM EDT [facility] [place] [address] [place] [phone] 1 wk [facility]st [facility] [place] Comment on above: 1 wk nst Start: 05-24-2025 End: 05-24-2025 Patient encounter procedure 05/24/2025 1:20 PM EDT [facility]ine [facility] [address] [facility] [place] [address] Jung Serrato DO [address] [place] [address] [facility] Start: 05-19-2025 End: 05-19-2025 Patient encounter procedure 05/19/2025 2:45 PM EDT Initial consult [facility] [address] [place] [phone] Chetan Marrero MD [address] [place] [address] (CONFIRMED) CONSULT - High-risk in third trimester [facility] Comment on above: (CONFIRMED) CONSULT - High-risk in third trimester Start: 05-19-2025 End: 05-19-2025 Patient encounter procedure 05/19/2025 9:15 AM EDT Routine [facility] [address] [facility] [address] [place] [phone] [facility] Comment on above: weekly bpp Start: 05-13-2025 Influenza vaccination B on [facility] Start: 05-10-2025 End: 05-10-2025 Patient encounter procedure 05/10/2025 1:50 PM EDT Routine [facility] [address] [facility] [place] [phone] Leyla Matt PA [address] [place], [place] [phone] [facility] Start: 05-03-2025 End: 05-03-2025 Patient encounter procedure 05/03/2025 10:40 AM EDT Routine [facility] [address] [facility] [place] [phone] Jung Serrato DO [address] [place], [place] [phone] [facility] Start: 04-19-2025 End: 10-20-2025 US biophysical profile w non stress test US biophysical profile w non stress test Imaging Routine Von Willebrand disease (HCC) Aortic valve stenosis, etiology of cardiac valve disease unspecified Expected: 04/19/2025 (Approximate), Expires: 10/20/2025 [facility] Work Phone: Comment on above: Expected: 04/19/2025 (Approximate), Expires: 10/20/2025 Start: 04-19-2025 End: 08-20-2025 US for US OB follow up transabdominal approach Imaging Routine Von Willebrand disease (HCC) Aortic valve stenosis, etiology of cardiac valve disease unspecified Expected: 04/19/2025 (Approximate), Expires: 08/20/2025 [facility] Comment on above: Expected: 04/19/2025 (Approximate), Expires: 08/20/2025 Start: 04-12-2025 End: 04-12-2025 Patient encounter procedure 04/12/2025 1:30 PM EDT Routine [facility] [address] [place] [phone] Leyla Matt PA [address] [place] [address] [facility] Start: 04-06-2025 Tdap Vaccine during [facility]ap [facility] Start: 03-14-2025 End: 03-14-2026 CBC panel - Blood by Automated count CBC Lab Routine Diabetes mellitus screening Expected: 03/14/2025 (Approximate), Expires: 03/14/2026 [facility] Work Phone: Comment on above: Expected: 03/14/2025 (Approximate), Expires: 03/14/2026 Start: 03-14-2025 End: 03-14-2026 Measurement of glucose 1 hour after glucose challenge for glucose tolerance test Glucose tolerance, 1 hour Lab Routine Diabetes mellitus screening Expected: 03/14/2025 (Approximate), Expires: 03/14/2026 [facility] Comment on above: Expected: 03/14/2025 (Approximate), Expires: 03/14/2026 Start: 03-08-2025 End: 03-08-2025 Patient encounter procedure 03/08/2025 2:20 PM EDT Routine [facility] [address] [place] [address] [place] [phone] Jung Serrato DO [address] [place] [address] [place] [address] [facility] Start: 02-09-2025 End: 03-11-2025 Alpha fetoprotein, maternal Alpha fetoprotein, maternal Lab Routine 19 weeks gestation of Second trimester Expected: 02/09/2025 (Approximate), Expires: 03/11/2025 [facility] Comment on above: Expected: 02/09/2025 (Approximate), Expires: 03/11/2025 Start: 02-07-2025 Depression Screen Depression [facility] Start: 02-07-2025 End: 02-07-2025 Patient encounter procedure 02/07/2025 11:30 AM EDT Routine [facility] [address] [facility] [place] [phone] Leyla Matt PA [address] [place], [place] [phone] [facility] Start: 01-06-2025 End: 01-06-2025 Patient encounter procedure 01/06/2025 9:40 AM EDT Routine [facility] [address] [facility] [place] [phone] Jung Serrato DO [address] [place] [address] [facility] Start: 12-10-2024 End: 12-10-2025 ABO/Rh ABO/Rh Lab Routine Missed menses , unspecified gestational age Expected: 12/10/2024 (Approximate), Expires: 12/10/2025 [facility] Comment on above: Expected: 12/10/2024 (Approximate), Expires: 12/10/2025 Start: 12-10-2024 End: 12-10-2025 Blood type and Indirect antibody screen panel - Blood Type and screen Lab Routine Missed menses , unspecified gestational age Expected: 12/10/2024 (Approximate), Expires: 12/10/2025 [facility] Comment on above: Expected: 12/10/2024 (Approximate), Expires: 12/10/2025 Start: 12-10-2024 End: 12-10-2025 Drugs of abuse panel - Urine by Screen method Rapid drug screen, urine Lab Routine , unspecified gestational age Encounter for supervision of normal first in first trimester Expected: 12/10/2024 (Approximate), Expires: 12/10/2025 [facility] Comment on above: Expected: 12/10/2024 (Approximate), Expires: 12/10/2025 Start: 12-09-2024 End: 12-09-2025 US Pelvis transvaginal US OB transvaginal Imaging Routine Missed menses Expected: 12/09/2024, Expires: 12/09/2025 [facility] Work Phone: Comment on above: Expected: 12/09/2024 , Expires: 12/09/2025 Start: 2024 Screening for malign ant neoplasm of cervix [facility] Start: 07-02-2024 End: 07-02-2024 Patient encounter procedure 07/02/2024 8:30 AM EDT Procedure Visit [facility] Jung Serrato, DO [address] [place] [address] [facility] Start: 06-13-2024 COVID-19 Vaccine ( season) COVID-19 Vaccine ( season) [facility] Start: 06-13-2024 Influenza vaccination Influenza Vacc ine (#1) [facility] Start: 06-02-2024 End: 06-02-2025 MR Brain WO and W contrast IV MR brain w and wo contrast routine Imaging Routine Elevated prolactin level Expected: 06/02/2024 (Approximate), Expires: 06/02/2025 [facility] Work Phone: Comment on above: Expected: 06/02/2024 (Approximate), Expires: 06/02/2025 Start: 06-02-2024 End: 06-02-2024 Patient encounter procedure 06/02/2024 1:00 PM EDT Consult [facility] [address] [facility] [place] [phone] Jung Serrato, DO [address] [place] [address] Arrived [facility] Comment on above: Arrived Start: 05-28-2024 End: 05-28-2024 Patient encounter procedure 05/28/2024 9:00 PM EDT Appointment [facility] [address] [place] [address] [phone] MEDIA CHRIS W PT [facility] Comment on above: MEDIA CHRIS W PT Start: 05-13-2024 Influenza vaccination Flu vaccine (# 1) [facility] Start: 06-13-2023 COVID-19 Vaccine ( season) COVID-19 Vaccine ( season) [facility] Start: 05-13-2023 Influenza vaccination Flu vacc ine (Season Ended) [facility] Start: 08-18-2021 Screening for malign ant neoplasm of cervix PAP SMEAR [facility] Start: 06-13-2020 Influenza vaccination Flu vaccine (# 1) [facility] [place] [place] Start: 06-13-2020 Influenza vaccinatio n given [facility] Start: 04-11-2020 Influenza vaccinatio n given SEQUENTIAL INFLUENZA VACCINE (#1) [facility] Comment on above: Postponed from 06/13 (Patient Ill Today) Start: 06-13-2019 Influenza vaccinatio n given SEQUENTIAL INFLUENZA VACCINE (#1) [facility] Start: 04-28-2017 DTaP,Tdap and Td Vaccines (7 - Td or Tdap) DTaP,Tdap and Td Vaccines (7 - Td or Tdap) [facility] Start: 04-28-2017 DTaP/Tdap/Td vaccine (7 - Td or Tdap) DTaP/Tdap/Td vaccine (7 - Td or Tdap) [facility] Start: 04-28-[address] [facility] Start: 2015 Screening for malign ant neoplasm of cervix [facility] Start: 2013 DTaP/Tdap/Td vaccine (1 - Tdap) DTaP/Tdap/Td vaccine (1 - Tdap) [facility] Start: 2013 Hepatitis B vaccine (1 of 3 - 19+ 3-dose series) Hepatitis B vaccine (1 of 3 - 19+ 3-dose series) [facility] Start: 2012 Adult BMI Follow Up Plan Adult BMI Follow Up Plan [facility] Start: 2012 Hepatitis C antibody , confirmatory test Hepatitis C Screening [facility] Start: 2010 COVID-19 Vaccine (1 of 2) COVID-19 Vaccine (1 of 2) [facility] Start: 2009 HIV screening HIV Screening [facility] Start: 2007 Varicella vaccine (1 of 2 - 13+ 2-dose series) Varicella vaccine (1 of 2 - 13+ 2-dose series) [facility] Start: 2006 Adolescent depressio n screening assessment [facility] Start: 2006 Depression Screen Depression Screen [facility] Start: 2006 Tobacco Screening Tobacco Screening [facility] Start: 2005 HPV vaccine (1 - 2-d ose series) HPV vaccine (1 - 2-dose series) [facility] [place] Start: 1997 History and physical examination, annual for health maintenance Wellness Visit [facility] Start: 1995 Varicella vaccine (1 of 2 - 2-dose childhood series) Varicella vaccine (1 of 2 - 2-dose childhood series) [facility] Start: 05-10-1995 COVID-19 Vaccine (#1) COVID-19 Vacci ne (#1) [facility] Start: 1994 Depression screening using PHQ-9 (Patient Health Questionnaire 9) score DEPRESSION SCREENING (PHQ9) [facility] Start: 1994 Screening for Chlamy mc trachomatis Chlamydia Screening [facility] Bacteria identified in Urine by Culture Urine culture Microbiology Routine Missed menses Ordered: 12/10/2024 [facility] Comment on above: Ordered: 12/10/2024 End: 01-19-2023 C.trachomatis N.gonorrhoeae DNA [facility] Work Phone: Comment on above: One Time for 1 Occur rences starting 01/19/2023 until 01/19/2023 End: 05-16-2020 C.trachomatis N.gonorrhoeae DNA, Urine C.trachomatis N.gonorrhoeae DNA, Urine Microbiology Routine Once for 1 Occurrences starting 05/16/2020 until 05/16/2020 [facility] Comment on above: Once for 1 Occurrenc es starting 05/16/2020 until 05/16/2020 C.trachomatis N.gonorrhoeae DNA, Urine C.trachomatis N.gonorrhoeae DNA, Urine Microbiology Routine 05/16/2020 12:28 PM EDT [facility] [place] CBC W Auto Different ial panel - Blood CBC and differential Lab Routine Missed menses , unspecified gestational age Ordered: 12/10/2024 [facility] Comment on above: Ordered: 12/10/2024 CHLAMYDIA TRACHOMATI S (GENITO/STI) CHLAMYDIA TRACHOMATIS (GENITO/STI) Lab Routine Exposure to STD Ordered: 02/09/2025 [facility] Comment on above: Ordered: 02/09/2025 Culture, Strep B Screen, Vaginal/Rectal Culture, Strep B Screen, Vaginal/Rectal Microbiology Routine High-risk in third trimester 35 weeks gestation of 06/03/2025 2:13 AM EDT [employer] End: 01-19-2023 Culture, Urine [employer] Phone: Comment on above: One Time for 1 Occur rences starting 01/19/2023 until 01/19/2023 Cytology Cervical or vaginal smear or scraping study Pap Smear Pathology and Cytology Routine Well woman exam with routine gynecological exam Ordered: 02/09/2025 [facility] Comment on above: Ordered: 02/09/2025 End: 05-27-2024 [employer] Phone: Comment on above: Once for 1 Occurrenc es starting 05/27/2024 until 05/27/2024 Hemoglobin A1c/Hemoglobin.total in Blood Hemoglobin A1c Lab Routine Missed menses , unspecified gestational age Ordered: 12/10/2024 [facility] Comment on above: Ordered: 12/10/2024 Hepatitis B virus surface Ag [Presence] in Serum or Plasma by Immunoassay Hepatitis B surface antigen Lab Routine Missed menses , unspecified gestational age Ordered: 12/10/2024 [facility] Comment on above: Ordered: 12/10/2024 Hepatitis C virus Ab [Presence] in Serum or Plasma by Immunoassay Hepatitis C antibody Lab Routine Missed menses , unspecified gestational age Ordered: 12/10/2024 [facility] Comment on above: Ordered: 12/10/2024 HIV-1/HIV-2 antigen/antibody combination immunoassay HIV-1 and HIV-2 antibodies Lab Routine Missed menses , unspecified gestational age Ordered: 12/10/2024 [facility] Comment on above: Ordered: 12/10/2024 Human papilloma viru s DNA [Presence] in Unspecified specimen by Probe with amplification HPV DNA probe, amplified Microbiology Routine Well woman exam with routine gynecological exam Ordered: 02/09/2025 [facility] Comment on above: Ordered: 02/09/2025 Neisseria gonorrhoea e DNA [Presence] in Unspecified specimen by YULIANA with probe detection Neisseria gonorrhea DNA probe, direct Lab Routine Exposure to STD Ordered: 02/09/2025 [facility] Comment on above: Ordered: 02/09/2025 Reagin Ab [Presence] in Serum by RPR RPR Lab Routine Missed menses , unspecified gestational age Ordered: 12/10/2024 [facility] Comment on above: Ordered: 12/10/2024 Rubella antibody, IgG Rubella an tibody, IgG Lab Routine Missed menses , unspecified gestational age Ordered: 12/10/2024 [facility] Comment on above: Ordered: 12/10/2024 SURESWAB(R) ADVANCED VAGINITIS PLUS, TMA SURESWAB(R) ADVANCED VAGINITIS PLUS, TMA Pathology and Cytology Routine Vaginal discharge Ordered: 02/09/2025 [facility] Work Phone: Comment on above: Ordered: 02/09/2025 US Pelvis transvaginal US OB tra nsvaginal Imaging Routine Missed menses 12/10/2024 9:57 AM EST [facility] Immunizations Immunization Date Immunization Notes Care Provider Fa [facility] 06-03-2025 tetanus toxoid, redu bianka diphtheria toxoid, and acellular pertussis vaccine, adsorbed Joi Lewis MD Work Phone: [facility] 06-10-2012 influenza virus vaccine, unspecified formulation Jung Serrato DO Work Phone: [facility] Payers Date Payer Category Payer Medicaid [id number] 2024 Medicaid [id number] 2017 Unknown [facility] Y PLAN [employer] [employer] xxxxxxxxxxxx 2017-Present xxxxxxxxxxxx [id number] 2017 Unknown [facility] Y PLAN [employer] [employer] [id number] 2017-Present [id number] 2015 Unknown [id number] 1994 Unknown [id number] 2.16.840.1.473509.3.579.2.903 1994 Unknown [id number] 2.16.840.1.917911.3.579.2.903 1994 Unknown [id number] 2.16.840.1.411654.3.579.2.903 1994 Unknown [id number] 2.16.840.1.210953.3.579.2.903 1994 Unknown [id number] 2.16.840.1.052187.3.579.2.128 6 1994 Unknown [id number] 2.16.840.1.996877.3.579.2.128 6 1994 Unknown [id number] 2.16.840.1.587769.3.579.2.128 6 1994 Unknown [id number] 2.16.840.1.360206.3.579.2.173 1994 Unknown [id number] 2.16.840.1.552207.3.579.2.173 1994 Unknown [id number] 2.16.840.1.050634.3.579.2.173 1994 Unknown [id number] 2.16.840.1.622826.3.579.2.173 1994 Unknown [id number] 2.16.840.1.724282.3.579.2.173 1994 Unknown [id number] 2.16.840.1.538729.3.579.2.173 1994 Unknown [id number] 2.16.840.1.316930.3.579.2.173 1994 Unknown [id number] 2.16.840.1.065074.3.579.2.173 1994 Unknown [id number] 2.16.840.1.696479.3.579.2.125 9 1994 Unknown [id number] 2.16.840.1.957554.3.579.2.125 9 1994 Unknown [id number] 2.16.840.1.899234.3.579.2.125 9 1994 Unknown [id number] 2.16.840.1.269178.3.579.2.125 9 1994 Unknown [id number] 2.16.840.1.333191.3.579.2.125 9 1994 Unknown [id number] 2.16.840.1.039695.3.579.2.125 9 1994 Unknown [id number] 2.16.840.1.200477.3.579.2.125 9 1994 Unknown [id number] 2.16.840.1.216875.3.579.2.125 9 1994 Unknown [id number] 1995 Unknown [id number] Social History Date Type Detail Facility Start: 06-21-2019 End: 2023 Tobacco smoking status [facility] Never smoker [facility] Start: 06-21-2019 End: 09-30-2020 Alcohol intake Current non-drinker of alcohol (finding) [facility] Start: 1995 Sex Assigned At Not on file [facility] Start: 01-09-2023 End: 01-19-2023 Exposure to SARS-CoV-2 (event) Not sure [facility] Start: 05-16-2020 End: 2023 Tobacco use and exposure Never used [facility] [place] Start: 05-16-2020 End: 02-15-2024 Alcohol intake Current drinker of alcohol (finding) [employer] [place], [place] Start: 06-19-2014 Alcohol Comment Socially [facility] [place], [place] Start: 01-20-2023 History SDOH [facility] Work Phone: Start: 01-20-2023 History SDOH Alcohol Std Drinks 0 [facility] Work Phone: Start: 06-23-2023 End: 08-18-2023 History of Social function [facility] Start: 06-23-2023 End: 08-18-2023 Alcohol Use Disorder Identification Test - Consumption [AUDIT-C] [facility] How often to you hav e a drink containing alcohol? Never [facility] How many standard dr inks containing alcohol do you have on a typical day? Patient does not drink [facility] (I/We) worried wheth er (my/our) food would run out before (I/we) got money to buy more. Never true [facility] Tobacco smoking stat [facility] Tobacco smoking consumption unknown [facility] Start: 10-13-2024 [facility] Start: 10-20-2022 End: 06-03-2025 Alcoholic beverage intake Ex-drinker (finding) [facility] Start: 11-22-2012 End: 05-18-2015 Sex Female (finding) [facility] Functional Status Date Assessment Result Facility [facility] Clinical Notes 01-19-2023 to 05-24-2025 Christie Ricks LPN - 05/24/2025 1:20 PM Hilario Siddiqui MA - 05/10/2025 1:50 PM RHIANNON Gomez - 04/19/2025 11:00 AM Hilario Siddiqui MA - 03/14/2025 1:30 PM EDTDischarge InstructionsAttachments Note Date & Type Note Facility 05-24-2025 History of Presen t illness Narrative Reason for Appointment: Patient ID: Edgar Ortiz is a 29 y.o. female who presents for Routine Visit Patient presents today for Return OB appointment. MEDICATIONS Current Outpatient Medications Medication Instructions acyclovir (ZOVIRAX) 400 mg magnesium oxide (MAG-OX) 400 mg, Oral, Daily Vit-DSS-Fe Fum-FA ( 19) tablet 1 tablet, Oral, Daily valACYclovir (VALTREX) 500 mg, Oral, Daily ALLERGIES Allergies Allergen Reactions Ibuprofen Bruising t/o the body Other Reaction(s): Other Nsaids Other Reaction(s): Unknown PROBLEMS Active Ambulatory Problems Diagnosis Date Noted Aortic valve stenosis 01/06/2025 14 weeks gestation of ([facility]) 01/06/2025 Second trimester ([facility]) 01/06/2025 Von Willebrand disease ([facility]) 01/06/2025 Resolved Ambulatory Problems Diagnosis Date Noted No Resolved Ambulatory Problems Past Medical History: Diagnosis Date Aortic stenosis due to bicuspid aortic valve HISTORY PAST MEDICAL HISTORY SOCIAL HISTORY Past Medical History: Diagnosis Date Aortic stenosis due to bicuspid aortic valve Von Willebrand disease ([facility]) Social History Tobacco Use Smoking status: Not [...] nursing note reviewed. Exam conducted with a lead mechanical engineer present. Vitals: Estimated body mass index is 37.57 kg/m as calculated from the following: Height as of 06/02/24: 5' 2 . Weight as of this encounter: 205 lb 6.4 oz. BP: 120/74 Patient's last menstrual period was 09/29/2024. ASSESSMENT & PLAN ICD-10-CM 1. Third trimester ([facility]) Z34.93 POCT urinalysis dipstick manually resulted 2. 33 weeks gestation of ([facility]) Z3A.33 POCT urinalysis dipstick manually resulted 3. Cold sore B00.1 4. Von Willebrand disease ([facility]) D68.00 5. Aortic valve stenosis, etiology of cardiac valve disease unspecified I35.0 Return OB: Patient presents today for a routine obstetrics appointment. Patient is currently 33w6d . Patient states she is doing well but has complaints of being tired due to current . Patient has verbalizes frequent movement. labor precautions was discussed/given and patient was instructed to perform kick counts three times a day. Pt to deliver at [facility] d/t aortic valve stenosis and von willebrand disease. Pt is a complete transfer of care will continue NST/BPPs here. Orders Placed This Encounter Procedures POCT urinalysis dipstick manually resulted Follow Up: Patient is to return to office in 2 week for routine OB appointment. Documented by Christie Ricks LPN on behalf of: Jung Serrato DO documented in this encounter [facility] 05-10-2025 History of Presen t illness Narrative [...] valve stenosis 01/06/2025 14 weeks gestation of ([facility]) 01/06/2025 Second trimester ([facility]) 01/06/2025 Von Willebrand disease ([facility]) 01/06/2025 Resolved Ambulatory Problems Diagnosis Date Noted [...] ASSESSMENT & PLAN ICD-10-CM 1. Third trimester ([facility]) Z34.93 CANCELED: POCT urinalysis dipstick manually resulted 2. 31 weeks gestation of ([facility]) Z3A.31 Return OB: Patient presents today for [...] of: RHIANNON Bar documented in this encounter [facility] 05-02-2025 Note Joi Lewis MD [address] [place] [facility] [address] May 02, 2025 Patient: Edgar Ortiz Date [...] 2025 and she will be delivering at [facility]. 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 Improving her hydration has helped [...] normal biventricular systolic function. Normal PFO with focyi-zb-xenj shunt an (more content not included)... [facility] 04-19-2025 History of Presen t illness [...] valve stenosis 01/06/2025 14 weeks gestation of ([facility]) 01/06/2025 Second trimester ([facility]) 01/06/2025 Von Willebrand disease ([facility]) 01/06/2025 Resolved Ambulatory Problems Diagnosis Date Noted No Resolved Ambulatory Problems Past Medical History: Diagnosis Date Aortic stenosis due to bicuspid aortic valve HISTORY PAST MEDICAL HISTORY SOCIAL HISTORY Past Medical History: Diagnosis Date Aortic stenosis due to bicuspid aortic valve Von Willebrand disease ([facility]) Social History Tobacco Use Smoking status: Not [...] PLAN ICD-10-CM 1. 28 weeks gestation of ([facility]) Z3A.28 POCT urinalysis dipstick manually resulted 2. Von Willebrand disease ([facility]) D68.00 US biophysical profile w non stress [...] and Growth US q4 to schedule at [facility]. Orders Placed This Encounter Procedures US biophysical profile w non stress test US OB follow up transabdominal approach POCT urinalysis dipstick manually resulted Follow Up: Patient is to return to office in 3 week for routine OB appointment. Documented by Vicki Siddiqui MA on behalf of: RHIANNON Bar documented in this encounter [facility] 03-14-2025 History of Presen t illness Narrative [...] calculated from the following: Height as of 24: 5' 2 . Weight as of this [...] Jung Serrato DO documented in this encounter [facility] 02-25-2025 Hospital Discharg e instructions Fior Mendez [...] attachments cannot be sent through Care Everywhere.Headache (Indonesian)documented in this encounter [facility] 02-09-2025 History of Presen t illness Narrative [...] nursing note reviewed. Exam conducted with a lead mechanical engineer present. Vitals: Estimated body mass index [...] Brian Shore NP documented in this encounter [facility] 01-17-2025 Miscellaneous Notes Notified office we are unable to see because we don't take her insurance. documented in this encounter [facility] 01-17-2025 Telephone encounter Note Notified office we are unable to see because we don't take her insurance. [facility] 01-06-2025 History of Presen t illness [...] nursing note reviewed. Exam conducted with a lead mechanical engineer present. Vitals: Estimated body mass index is 34.9 kg/m as calculated from the following: Height as of 06/02/24: 5' 2 . Weight as of this encounter: 190 lb 12.8 oz. BP: 116/74 Patient's last menstrual period was 09/29/2024. ASSESSMENT & PLAN ICD-10-CM 1. Second trimester Z34.92 2. 14 weeks gestation of Z3A.14 3. Von Willebrand disease ([facility]) D68.00 4. Aortic stenosis due to bicuspid [...] or undercooked meat, and stay away from [facility]. Patient has been consulted regarding any further do's and don'ts of . Patient voiced understanding and all questions and concerns were answered. Patient to have referral to [facility] for Aortic Stenosis and Von Willebrand. Patient voiced her current Manager Call Center Dr. Smalls will perform a cardiac workup as well & follow patient throughout as well. Follow Up: Patient is to return in 4 weeks for routine OB appointment. Documented by Sanjana Monaco LPN on behalf of: Jung Serrato DO documented in this encounter [facility] 12-27-2024 Note Joi Lewis MD [address] [facility] [address] [facility] [address] December 27, 2024 Patient: Edgar Ortiz Date [...] does have care with Dr. Serrato in [facility]. She has been on her vitamins [...] her last evaluat (more content not included)... [facility] 12-10-2024 History of Presen t illness [...] or undercooked meat, and stay away from [facility]. Patient has also been advised to not change litter boxes and eat 6 small meals a day. Patient has been consulted regarding the do's and don'ts of . Patient was given labs and all questions and concerns were answered. Patient will do Grandin labs. Patient was sent script for Valtrex [...] De Leon LPN documented in this encounter [facility] 06-02-2024 History of Presen t illness Narrative Reason for Appointment: Patient ID: Edgar Ortiz is a 28 y.o. female who presents for Pre-op Visit Patient presents today for Pre Op appointment. Patient is scheduled to undergo Diagnostic Laparoscopy, possible MARY, possible FOE, possible BSO on 07/02/[address] Serrato at [facility]. MEDICATIONS No current outpatient medications [...] nursing note reviewed. Exam conducted with a lead mechanical engineer present. Vitals: Estimated body mass index [...] reviewed, and patient is to proceed to [facility] OR. Follow Up: Patient is to follow up between 1-2 weeks post operative to assess proper healing and recovery from procedure. Documented by Christie Ricks LPN on behalf of: Jung Serrato DO documented in this encounter [facility] 01-19-2023 Hospital Discharg e instructions Fior Mendez DO - 01/19/2023 11:23 PM EDT Take the Diflucan as prescribed. Flagyl for possible bacterial vaginosis. We will give you a call if any of the STD swabs come back positive otherwise make sure to follow-up with your dairy helper regarding the lesion on your cervix in the next few days. If you have any concerns or questions regarding your care today, please discuss with your nurse or physician prior to leaving the emergency department. Thank you for allowing us to take care of you at [facility]. In the next few days you may receive a survey by mail or e-mail asking about the care you received during this visit. Please complete this if you are able, as this feedback helps us provide the best care possible. The following attachments cannot be sent through Care Everywhere.Vaginal Yeast Infection (Indonesian)documented in this encounter [facility] [employer] Phone: Evaluation note Diagnosis Vaginal itching- Primary Pruritus of genital organs [facility]: evaluation note* Diagnosis Dyspareunia, female Dyspareunia Abnormal uterine bleeding Unspecified disorder of menstruation and other abnormal bleeding from female genital tract documented in this encounter [facility]uresEvaluation note* Diagnosis Preop examination Unspecified pre-operative examination PCOS (polycystic ovarian syndrome) Polycystic ovaries Dyspareunia in female Abnormal uterine bleeding (AUB) Hormone imbalance Elevated prolactin level Pelvic pain in female Unspecified symptom associated with female genital organs documented in this encounter [facility]* Diagnosis Missed menses , unspecified gestational age Encounter for supervision of normal first in first trimester Cold sore Herpes simplex without mention of complication documented in this encounter [facility]* Diagnosis Second trimester state, incidental 14 weeks gestation of Von Willebrand disease ([facility]) Von Willebrand's disease Aortic stenosis due to bicuspid aortic valve documented in this encounter [facility]* Diagnosis 19 weeks gestation of Second trimester state, incidental Well woman exam with routine gynecological exam Routine gynecological examination Screening, , for anatomic survey Encounter for anatomic survey Vaginal discharge Leukorrhea, not specified as infective Exposure to STD documented in this encounter [facility]* Diagnosis Headache in , antepartum, second trimester- Primary [facility]* Diagnosis Second trimester state, incidental 23 weeks gestation of Diabetes mellitus screening Screening for diabetes mellitus documented in this encounter [facility]* Diagnosis 28 weeks gestation of (HHS-HCC) Von Willebrand disease (HCC) Von Willebrand's disease Aortic valve stenosis, etiology of cardiac valve disease unspecified documented in this encounter [facility]* Diagnosis Third trimester ([facility]HS-HCC) state, incidental 31 weeks gestation of ([facility]HCC) documented in this encounter [facility]* Diagnosis High-risk in third trimester Secondary hypertension Other secondary hypertension, unspecified [facility]* Diagnosis Third trimester ([facility]HS-HCC) state, incidental 33 weeks gestation of ([facility]) Cold sore Herpes simplex without mention of complication Von Willebrand disease (HCC) Von Willebrand's disease Aortic valve stenosis, etiology of cardiac valve disease unspecified documented in this encounter [facility]* Diagnosis High-risk in third trimester 35 weeks gestation of state, incidental documented [facility]Not on filedocumented in this encounter [facility] Instructions * Patient Instructions* Andra Carver [...] Log into your personal health record on [email or web address]://[email or web address] [email or web address] GameWorks and enter Z939 in the Education box to learn more about Sunburn: Care Instructions. Current as of: July 05, 2018 Content Version: 12.20054339-6783 [employer]. Care instructions adapted under license by your healthcare professional. If you have questions about a medical condition or this instruction, always ask your healthcare professional. [employer] disclaims any warranty or liability for your [...] medicine. Get some extra rest. Take an pmck-ypq-vmxlfxz pain medicine, such as acetaminophen (Tylenol), ibuprofen (Advil, Motrin),or naproxen (Aleve) to reduce fever and relieve body aches. Read and follow all instructions on thelabel. Do not take two or more pain medicines at the same time unless the doctor told you to. Many pain medicines have acetaminophen, which is Tylenol. Too much acetaminophen (Tylenol) can be harmful. Take an jaiy-rwv-cyvhnrc cough medicine that contains dextromethorphan to help [...] Log into your personal health record on [email or web address]://ZANK.[email or web address] and enter H333 in the Education box to learn more about Bronchitis: Care Instructions. Current as of: June 17, 2018 Content Version: 12.1 7174-8744 [employer]. Care instructions adapted under license by your healthcare professional. If you have questions about a medical condition or this instruction, always ask your healthcare professional. [employer] disclaims any warranty or liability for your [...] amount of fluids you drink. Take an uvqj-tuo-xwjerqa pain medicine if needed, such as acetaminophen [...] or plain hard candy. ? Take an vdpw-var-jpyuqth cough medicine that contains dextromethorphan to help [...] Log into your personal health record on https://WHOOP.GoodRx and enter L652 in the Education box to learn more about Influenza (Flu): Care Instructions. Current as of: March 21, 2019 Content Version: 12.3 5927-2636 [employer]. Care instructions adapted under license by your healthcare professional. If you have questions about a medical condition or this instruction, always ask your healthcare professional. [employer] disclaims any warranty or liability for your [...] chances of quitting for good. Take an aaed-fwn-thufrct pain medicine, such as acetaminophen (Tylenol), ibuprofen [...] Log into your personal health record on https://WHOOP.GoodRx and enter D336 in the Education box to learn more about Pneumonia: Care Instructions. Current as of: March 21, 2019 Content Version: 12.3 3083-8170 [employer]. Care instructions adapted under license by your healthcare professional. If you have questions about a medical condition or this instruction, always ask your healthcare professional. [employer] disclaims any warranty or liability for your [...] Log into your personal health record on https://ZANK.[email or web address] and enter D279 in the Education box to learn more about Cough: Care Instructions. Current as of: March 21, 2019 Content Version: 12.3 7835-1404 [employer]. Care instructions adapted under license by your healthcare professional. If you have questions about a medical condition or this instruction, always ask your healthcare professional. [employer] disclaims any warranty or liability for your use of this information. documented in this encounter* Patient Instructions* Veronica Kuo, - 09/30/2020 1:14 PM EST Impetigo: Care Instructions Your Care Instructions Impetigo (say ta-ssd-SJ-go ) is a skin infection caused by [...] Log into your personal health record on [email or web address] and enter S909 in the Education box to learn more about Impetigo: Care Instructions. Current as of: March 08, 2020 Content Version: 12.7 [employer]. Care instructions adapted under license by your healthcare professional. If you have questions about a medical condition or this instruction, always ask your healthcare professional. [employer] disclaims any warranty or liability for your use of this information. documented in this encounter History of Present Illness * Andra Carver PA-C - 06/21/2019 8:00 PM EDT PATIENT NAME: Edgar Ortiz [facility] [address] [place] [address] : 1995 DATE OF VISIT: 06/21/2019 #: [...] Diagnosis Bicuspid aortic valve Von Willebrand disease ([facility]) Migraine Obesity SOCIAL HISTORY Social History Socioeconomic [...] file Gets together: Not on file Attends zoroastrian service: Not on file Active member of club or organization: Not on file Attends meetings of clubs or organizations: Not on file Relationship status: Not on file Other Topics Concern Not on file Social History Narrative Lives with boyfriend. 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 FAMILY HISTORY Family [...] 1:11 PM EDT PATIENT NAME: Edgar Ortiz [facility] [address] [place] [id number] : 1995 DATE OF VISIT: 07/06/2019 #: [...] file Gets together: Not on file Attends zoroastrian service: Not on file Active member of club or organization: Not on file Attends meetings of clubs or organizations: Not on file Relationship status: Not on file Other Topics Concern Not on file Social History Narrative Lives with boyfriend. 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 FAMILY HISTORY Family [...] 11:35 AM EST PATIENT NAME: Edgar Ortiz [facility] [address] [place] [address] : 1995 DATE OF VISIT: 10/18/2019 SS#: [id number] PROVIDER: Arielle Ventura PA-C Chief [...] file Gets together: Not on file Attends zoroastrian service: Not on file Active member of club or organization: Not on file Attends meetings of clubs or organizations: Not on file Relationship status: Not on file Other Topics Concern Not on file Social History Narrative Lives with boyfriend. 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 FAMILY HISTORY Family [...] Molecular oseltamivir (Tamiflu) 75 MG capsule pyrilamine-dextromethorphan (Spencer DM) 7.5-7.5 mg/5 mL Liqd ipratropium (ATROVENT) [...] 5 days . 10 capsule 0 pyrilamine-dextromethorphan (Spencer DM) 7.5-7.5 mg/5 mL Liqd Take 10 [...] 8:48 PM EDT PATIENT NAME: Edgar Ortiz [facility] [address] [place] [address] [place] [address] : 1995 DATE OF VISIT: 03/23/2020 #: [...] file Gets together: Not on file Attends zoroastrian service: Not on file Active member of club or organization: Not on file Attends meetings of clubs or organizations: Not on file Relationship status: Not on file Other Topics Concern Not on file Social History Narrative Lives with boyfriend. 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 FAMILY HISTORY Family [...] on 03/23/2020 .) 22 g 0 pyrilamine-dextromethorphan (Spencer DM) 7.5-7.5 mg/5 mL Liqd Take 10 [...] on 03/23/2020 .) 22 g 0 pyrilamine-dextromethorphan (Spencer DM) 7.5-7.5 mg/5 mL Liqd Take 10 [...] - 09/30/2020 1:00 PM EST Patient Name: [facility] Location: [place] [address] Date Of : Date Of Visit: 1995 09/30/2020 MRN# Provider: [id number] Veronica Sanford Blood, DO Chief Complaint Patient presents with Rash [...] Care Instructions Your Care Instructions Impetigo (say zy-qqu-DP-go ) is a skin infection caused by [...] Log into your personal health record on https://ZANK.mobit.GoodRx and enter S909 in the Education box to learn more about Impetigo: Care Instructions. Current as of: March 08, 2020 Content Version: 12.7 [employer]. Care instructions adapted under license by your healthcare professional. If you have questions about a medical condition or this instruction, always ask your healthcare professional. [employer] disclaims any warranty or liability for your [...] FoundDocuments on File Type Date Recorded Patient Green Building Architect Expl anation Advance Directives and Living Will Documents on File Type Date Recorded Patient Green Building Architect Expl anation Advance Directives and Living Will Power of Line Appliance Assembler Documents on File Type Date Recorded Patient Green Building Architect Expl anation ACP-Advance Directive ACP-Power of Line Appliance Assembler Summary Purpose Family History No Family History Records FoundNo Family History Records FoundNo Family History Records FoundNo Family History Records FoundNo Family History Records FoundNo Family History Records FoundNo Family History Records FoundNo Family History Records Found Discharge Instructions * Instructions* Shannan Solitario MD - 08/11/2020 Tylenol and/or Motrin for any fevers or discomfort. Use Afrin daily as directed for 3 days. Wwcc-izi-rszcyjq Claritin or Zyrtec daily while symptoms persist. [...] Referred By Jhonny t Referred To Contact Radiology Diagnoses Dyspareunia, female Abnormal uterine bleeding Procedures US PELVIS COMPLETE Jung Serrato MD [address] [place] [address] Referral ID Status Reason Start Date Expiration Date Visits Re quested Visits Authorized [id number] Open 05/27/2024 05/27/2025 1 1 Specialty Diagnoses / Procedures Referred By Contac t Referred To Contact Diagnoses Elevated prolactin level Procedures MR brain w and wo contrast routine Jung Serrato, DO [address] [place] [address] Referral ID Status Reason Start Date Expiration Date V isits Requested Visits Authorized [id number] Pending Review 06/02/2024 11/29/2024 1 1 Additional [...] Referred By Jhonny t Referred To Contact Radiology Diagnoses Dyspareunia, female Abnormal uterine bleeding Procedures US PELVIS COMPLETE Jung Serrato MD [address] [place] [address] Referral ID Status Reason Start Date Expiration Date Visits Re quested Visits Authorized [id number] Open 05/27/2024 05/27/2025 1 1 Reason Comments [...] section and content) DATE CREATED AUTHOR 07/19/2019 [facility] DATE CREATED AUTHOR AUTHOR'S ORGANIZ ATION 02/25/2021 [facility] DATE CREATED AUTHOR AUTHOR'S ORGANIZ ATION 01/04/2022 [facility] DATE CREATED AUTHOR AUTHOR'S ORGANIZ ATION 04/02/2025 [facility] DATE CREATED AUTHOR AUTHOR'S ORGANIZ ATION 05/04/2025 [facility] DATE CREATED AUTHOR AUTHOR'S ORGANIZ ATION 05/21/2025 [facility] DATE CREATED AUTHOR AUTHOR'S ORGANIZ ATION 05/26/2025 [facility] EPIC DATE CREATED AUTHOR AUTHOR'S ORGANIZ ATION 06/07/2025 [facility] Ordered Prescriptions (unrec ognized section and content) [...] RN) Scheduled Medication Order 02/23/2025 02/24/2025 02/25/2025 qbfagvdxye-wuhimyoqfbuxk-sp ffeine (FIORICET, ESGIC) per tablet 1 tablet [...] Care Teams (unrecognized sec tion and content) Electrical Manufacturing Engineer Relationship Specialty Start Date End Date Joi Lewis PCP - General 01/23/16 Electrical Manufacturing Engineer Relationship Specialty Start Date End Date Joi Lewis MD PCP - General 01/23/16 Electrical Manufacturing Engineer Relationship Specialty Start Date End Date oJi Lewis MD PCP - General 01/23/16 Electrical Manufacturing Engineer Relationship Specialty Start Date End Date Joi Lewis MD [address] [place] [address] PCP - General Internal Medicine 02/18/23 Electrical Manufacturing Engineer Relationship Specialty Start Date End Date Joi Lewis MD [address] [place] [address] PCP - General Internal Medicine 02/18/23 Electrical Manufacturing Engineer Relationship Specialty Start Date End Date Joi Lewis MD [address] [place] [address] PCP - General Internal Medicine 02/18/23 Electrical Manufacturing Engineer Relationship Specialty Start Date End Date Joi Lewis MD [address] [place] [address] PCP - General Internal Medicine 02/18/23 Electrical Manufacturing Engineer Relationship Specialty Start Date End Date Joi Lewis MD [address] [place] [address] PCP - General Internal Medicine 02/18/23 Electrical Manufacturing Engineer Relationship Specialty Start Date End Date Joi Lewis MD [address] [place] [address] PCP - General 04/29/18 Electrical Manufacturing Engineer Relationship Specialty Start Date End Date Joi Lewis MD [address] [place] [address] PCP - General Internal Medicine 02/18/23 Electrical Manufacturing Engineer Relationship Specialty Start Date End Date Joi Lewis MD [address] [place] [address] PCP - General Internal Medicine 02/18/23 Electrical Manufacturing Engineer Relationship Specialty Start Date End Date Joi Lewis MD [address] [place] [address] PCP - General Internal Medicine 02/18/23 Electrical Manufacturing Engineer Relationship Specialty Start Date End Date Joi Lewis MD [address] [place] [address] PCP - General Internal Medicine 02/18/23 Electrical Manufacturing Engineer Relationship Specialty Start Date End Date Joi Lewis MD PCP - General 01/23/16 Electrical Manufacturing Engineer Relationship Specialty Start Date End Date Joi Lewis MD [address] [place] [address] PCP - General Internal Medicine 02/18/23 Electrical Manufacturing Engineer Relationship Specialty Start Date End Date Unallocated, Yanique Louis MD [facility] [place] [address] PCP - General Family Medicine 03/17/25 Electrical Manufacturing Engineer Relationship Specialty Start Date End Date Joi Lewis MD PCP - General 01/23/16 Electrical Manufacturing Engineer Relationship Specialty Start Date End Date Unallocated, Yanique Louis MD [facility] [place] [address] PCP - General Family Medicine 03/17/25 Electrical Manufacturing Engineer Relationship Specialty Start Date End Date Unallocated, Yanique Louis MD [facility] [place] [address] PCP - General Family Medicine 03/17/25 Electrical Manufacturing Engineer Relationship Specialty Start Date End Date Unallocated, Yanique Louis MD [facility] [place] [address] PCP - General Family Medicine 03/17/25 Electrical Manufacturing Engineer Relationship Specialty Start Date End Date Unallocated, Yanique Louis MD [facility] [place] [address] PCP - General Family Medicine 03/17/25 Electrical Manufacturing Engineer Relationship Specialty Start Date End Date Unallocated, Yanique Louis MD [address] [place] [address] PCP - [facility] Family Medicine 03/17/25 Electrical Manufacturing Engineer Relationship Specialty Start Date End Date Joi Lewis MD PCP General 01/23/16 Electrical Manufacturing Engineer Relationship Specialty Start Date End Date Unallocated, Yanique Louis MD [facility] [place] [address] PCP - [facility] Medicine 03/17/25 Electrical Manufacturing Engineer Relationship Specialty Start Date End Date Unallocated, Yanique Louis MD [facility] [place] [address] [facility] 03/17/25 Electrical Manufacturing Engineer Relationship Specialty Start Date End Date Joi Lewis MD [facility] 01/23/16 FOR RECORDS PERTAINING TO PATIENTS WHO [...] BE BASED ON THE PRIMARY CLINICAL RECORDS. [facility] [employer] [facility]. provides no warranty or guarantee of the accuracy or completeness of information in this document.
[2025-06-10 18:23] VITALS: BP 112/73; PULSE 123
== END 2025-06-10 18:57 | disposition home or self-care (01) ==
LOC: FBCO 18:03 → FBC 18:22
PROVIDERS: PCP Internal Medicine; Visit Provider Obstetrics & Gynecology
DX: O36.5930 Maternal care for other known or suspected poor fetal growth, third trimester, not applicable or unspecified (principal); Z3A.36 36 weeks gestation of pregnancy
CPT/HCPCS: 59025